=== PATIENT | female | born 1945 | race Two or more races ===

== ENCOUNTER 2018-03-07 18:15 | Inpatient (IN) | payer BC, MEDICARE ==
[~2018-03-07] VITALS: Ht 162.6 cm; Wt 59.5 kg
[2018-03-07] MEDS ORDERED: IV NORMAL SALINE 500ML BAG 500 ML IV SCH (18:30)
[2018-03-07] MEDS ORDERED: PANTOPRAZOLE IV PUSH 40 MG VIAL. IVP ONE (18:30)
--- NOTE | 2018-03-07 18:40 | PHYS DOC ---
Past Medical History Past Medical History: Cancer (liver) Additional Past Surgical Histo: liver cancer resection Alcohol Use: None Drug Use: None Adult General Chief Complaint Chief Complaint: NEAR SYNCOPE HPI HPI Patient is a 72 year old female who presents with near syncope due to GI bleed. Patient was sitting at her children's home when she became nauseated and felt like she was going to pass out. While in the car and the way to the hospital developed bleeding both in emesis as well as per rectum. She has had a similar episode of this due to a Dieulafoy's lesion that was treated at her home in [place] sometime ago. Patient also has a history of liver cancer that has been resected. Last had an MRI in January 2018 that showed that she was cancer free.[] Review of Systems Review of Systems Constitutional: Denies fever or chills [] Eyes: Denies change in visual acuity, redness, or eye pain [] HENT: Denies nasal congestion or sore throat [] Respiratory: Denies cough or shortness of breath [] Cardiovascular: No chest pain or palpitations[] GI: See history of present illness[] : Denies dysuria or hematuria [] Musculoskeletal: Denies back pain or joint pain [] Integument: Denies rash or skin lesions [] Neurologic: Denies headache, focal weakness or sensory changes [] Endocrine: Denies polyuria or polydipsia [] All other systems were reviewed and found to be within normal limits, except as documented in this note. Current Medications Current Medications Current Medications Medications (Trade) Dose Ordered Sig/Aliza Start Time Stop Time Status Last Admin Dose Admin Pantoprazole Sodium (PROTONIX VIAL for IV PUSH) 80 mg 1X ONCE 03/07/18 18:30 03/07/18 18:32 DC 03/07/18 19:00 80 MG Sodium Chloride 500 ml @ 500 mls/hr Q1H 03/07/18 18:30 03/07/18 18:42 DC 03/07/18 18:29 500 MLS/HR Allergies Allergies Allergies Coded Allergies Type Severity Reaction Last Updated Verified No Known Drug Allergies 03/07/18 No Physical Exam Physical Exam Constitutional: Well developed, well nourished, no acute distress, ill appearing. [] HENT: Normocephalic, atraumatic, bilateral external ears normal, oropharynx moist, no oral exudates, nose normal. Blood in oropharynx and on lips.[] Eyes: PERRLA, EOMI, conjunctiva normal, no discharge. [] Neck: Normal range of motion, no tenderness, supple, no stridor. [] Cardiovascular:Heart rate regular rhythm, no murmur [] Lungs & Thorax: Bilateral breath sounds clear to auscultation [] Abdomen: Bowel sounds normal, soft, no tenderness, no masses, no pulsatile masses. Bright red blood per rectum[] Skin: Warm, dry, no erythema, no rash. [] Back: No tenderness, no CVA tenderness. [] Extremities: No tenderness, no cyanosis, no clubbing, ROM intact, no edema. [] Neurologic: Alert and oriented X 3, normal motor function, normal sensory function, no focal deficits noted. [] Psychologic: Affect normal, judgement normal, mood normal. [] Current Patient Data Vital Signs Vital Signs Date Time Temp Pulse Resp B/P (MAP) Pulse Ox O2 Delivery O2 Flow Rate FiO2 03/07/18 18:31 97.6 76 24 69/53 (58) 100 Room Air 97.6 Lab Values Laboratory Tests Test 03/07/18 18:40 Prothrombin Time 14.3 SEC (11.7-14.0) H Prothrombin Time INR 1.1 (0.8-1.1) Sodium Level 143 mmol/L (136-145) Potassium Level 3.4 mmol/L (3.5-5.1) L Chloride Level 109 mmol/L (98-107) H Carbon Dioxide Level 22 mmol/L (21-32) Anion Gap 12 (6-14) Blood Urea Nitrogen 9 mg/dL (7-20) Creatinine 0.8 mg/dL (0.6-1.0) Estimated GFR (Cockcroft-Gault) 70.9 BUN/Creatinine Ratio 11 (6-20) Glucose Level 155 mg/dL (70-99) H Calcium Level 8.4 mg/dL (8.5-10.1) L Total Bilirubin Pending Aspartate Amino Transferase (AST) Pending Alanine Aminotransferase (ALT) Pending Alkaline Phosphatase Pending Total Protein Pending Albumin Pending Albumin/Globulin Ratio Pending Laboratory Tests 03/07/18 18:40 EKG EKG EKG shows a sinus rhythm, 73 bpm, leftward axis, QTC 42 ms, nonspecific ST-T wave changes, no ST elevation, no old EKG is available for comparison.[] Radiology/Procedures Radiology/Procedures [] Course & Med Decision Making Course & Med Decision Making Pertinent Labs and Imaging studies reviewed. (See chart for details) ED course: Patient arrived, was placed in bed, 2 large bore IV sites were established, and patient was placed on media monitor. Given her history of the Dieulafoy's lesion, consultation was made with GI as well as the hospitalist service for admission. Patient was given IV fluids, proton pump inhibitor and octreotide. Patient was typed and crossed for 4 units of packed red cells. Due to persistent hypotension despite IV fluids, emergency release blood was ordered and transfused on the rapid infuser. Critical care time 45 minutes for direct bedside care, consultation with specialists, interpretation of labs and imaging, and discussion with family.[] Dragon Disclaimer Dragon Disclaimer This electronic medical record was generated, in whole or in part, using a voice recognition dictation system. Departure Departure Impression: Primary Impression: GI bleed Additional Impression: Hypotension Disposition: 09 ADMITTED INPATIENT Condition: CRITICAL Problem Qualifiers Primary Impression: GI bleed GI bleed type/associated pathology: unspecified gastrointestinal hemorrhage type Qualified Codes: K92.2 - Gastrointestinal hemorrhage, unspecified Additional Impression: Hypotension Hypotension type: hypotension due to hypovolemia Qualified Codes: I95.89 - Other hypotension; E86.1 - Hypovolemia SANIA RICHARD DO Mar 07, 2018 18:39
[2018-03-07 19:01] LABS: PROTHROMBIN TIME PATIENT 14.3 SEC (11.7-14.0)
[2018-03-07 19:03] LABS: CALCIUM 8.4 mg/dL (8.5-10.1); CREATININE 0.8 mg/dL (0.6-1.0); GFR 70.9; POTASSIUM 3.4 mmol/L (3.5-5.1)
[2018-03-07 19:08] LABS: ALBUMIN/GLOBULIN RATIO 0.3 (1.0-1.7); TOTAL BILIRUBIN 0.4 mg/dL (0.2-1.0); TOTAL PROTEIN 9.3 g/dL (6.4-8.2)
[2018-03-07] MEDS ORDERED: CONTRAST GIVEN. MC PRN (19:15)
[2018-03-07] MEDS ORDERED: ONDANSETRON PF 4 MG/2 ML VIAL. IV PRN (19:15)
[2018-03-07] MEDS ORDERED: IOHEXOL 300 MG/ML 100ML VIAL. IV ONE (19:15)
[2018-03-07 19:33] LABS: BASO % 0 % (0-3); EOS # 0.1 x10^3/uL (0.0-0.7); EOS % 2 % (0-3); LYMPH # 2.6 x10^3/uL (1.0-4.8); LYMPH % 32 % (24-48); MEAN CORPUSCULAR HEMOGLOBIN 31 pg (25-35); MEAN CORPUSCULAR HGB CONC 35 g/dL (31-37); MEAN CORPUSCULAR VOLUME 90 fL (79-100); MONO # 0.7 x10^3/uL (0.0-1.1); MONO % 8 % (0-9); NEUT # 4.7 x10^3uL (1.8-7.7); NEUT % 58 % (31-73); PLATELET COUNT 151 x10^3/uL (140-400); RED BLOOD COUNT 2.16 x10^6/uL (3.50-5.40); RED CELL DISTRIBUTION WIDTH 16.8 % (11.5-14.5); WHITE BLOOD COUNT 8.2 x10^3/uL (4.0-11.0)
[2018-03-07 19:52] LABS: HEMATOCRIT 19.4 % (36.0-47.0); HEMOGLOBIN 6.7 g/dL (12.0-15.5)
[2018-03-07 21:00] VITALS: BP 85/38
[2018-03-07] MEDS ORDERED: OMEP20TA63 PO (21:11)
[2018-03-07] MEDS ORDERED: SIMV20TA3 PO (21:11)
--- NOTE | 2018-03-07 21:13 | PDOC2 ---
GI CONSULT Reason For Consult: GI bleeding HPI: HPI: 72 y/o female visiting from out of town. This evening had sudden onset near- syncope followed by urge to stool. Passed normal stool. Subsequently abdominal discomfort and decision to come to ER. En route, hematemesis, then hematochezia. Initial BP 70-jorge systolic. Never particularly tachycardic. H/ o UGI bleed in June 2016; at EGD, family relates "Dieulafoy" lesion in esophagus (?) treated by spray (?). 's related to NSAID use incidentally noted, but not bleeding. Avoids NSAIDs now. Apparently no mention of varices, etc. No HB, etc. but maintained on PPI. S/p incidental cortez during segmental hepatic resection for HCC; initially felt solitary lesion. Family/patient deny any history of liver disease. Had recurrent HCC and treated with [facility] (sp? ) initially, then Opdiv[facility]. Family reports last imaging clean. No pancreatic history. No tobacco or alcohol use. Stools tend to loose; no constipation. More than one colonoscopy reportedly normal. Wt/appetite OK. No GIFH. PMH: PMH: Past HTN, HLD. S/p above surgeries plus myomectomy for uterine fibroids. FH: Family History: Cancer (breast/sister) Social History: Smoke: No ALCOHOL: none Drugs: None ROS: GEN: Denies fevers, chills, sweats HEENT: Denies blurred vision, sore throat CV: Denies chest pain RESP: Denies shortness of air, cough GI: Per HPI : Denies hematuria, dysuria ENDO: Denies weight changes NEURO: Denies confusion, dizziness MSK: Denies weakness, swelling. Frequent joint pain. SKIN: Denies jaundice, pruritus Vitals: Vitals: Vital Signs Date Time Temp Pulse Resp B/P (MAP) Pulse Ox O2 Delivery O2 Flow Rate FiO2 03/07/18 20:16 66 14 100 03/07/18 20:14 98.1 98.1 03/07/18 18:31 69/53 (58) Room Air Labs: Labs: Laboratory Tests Test 03/07/18 18:40 03/07/18 19:11 Prothrombin Time 14.3 SEC (11.7-14.0) Prothromb Time International Ratio 1.1 (0.8-1.1) Sodium Level 143 mmol/L (136-145) Potassium Level 3.4 mmol/L (3.5-5.1) Chloride Level 109 mmol/L (98-107) Carbon Dioxide Level 22 mmol/L (21-32) Anion Gap 12 (6-14) Blood Urea Nitrogen 9 mg/dL (7-20) Creatinine 0.8 mg/dL (0.6-1.0) Estimated GFR (Cockcroft-Gault) 70.9 BUN/Creatinine Ratio 11 (6-20) Glucose Level 155 mg/dL (70-99) Calcium Level 8.4 mg/dL (8.5-10.1) Total Bilirubin 0.4 mg/dL (0.2-1.0) Aspartate Amino Transf (AST/SGOT) 73 U/L (15-37) Alanine Aminotransferase (ALT/SGPT) 47 U/L (14-59) Alkaline Phosphatase 280 U/L (46-116) Troponin I Quantitative < 0.017 ng/mL (0.000-0.055) Total Protein 9.3 g/dL (6.4-8.2) Albumin 2.0 g/dL (3.4-5.0) Albumin/Globulin Ratio 0.3 (1.0-1.7) White Blood Count 8.2 x10^3/uL (4.0-11.0) Red Blood Count 2.16 x10^6/uL (3.50-5.40) Hemoglobin 6.7 g/dL (12.0-15.5) Hematocrit 19.4 % (36.0-47.0) Mean Corpuscular Volume 90 fL (79-100) Mean Corpuscular Hemoglobin 31 pg (25-35) Mean Corpuscular Hemoglobin Concent 35 g/dL (31-37) Red Cell Distribution Width 16.8 % (11.5-14.5) Platelet Count 151 x10^3/uL (140-400) Neutrophils (%) (Auto) 58 % (31-73) Lymphocytes (%) (Auto) 32 % (24-48) Monocytes (%) (Auto) 8 % (0-9) Eosinophils (%) (Auto) 2 % (0-3) Basophils (%) (Auto) 0 % (0-3) Neutrophils # (Auto) 4.7 x10^3uL (1.8-7.7) Lymphocytes # (Auto) 2.6 x10^3/uL (1.0-4.8) Monocytes # (Auto) 0.7 x10^3/uL (0.0-1.1) Eosinophils # (Auto) 0.1 x10^3/uL (0.0-0.7) Basophils # (Auto) 0.0 x10^3/uL (0.0-0.2) Minimally abnormal LFT's. Has received 2 units PRBC's since first labs drawn. Allergies: Coded Allergies: No Known Drug Allergies (Unverified , 03/07/18) Medications: Current Medications Medications (Trade) Dose Ordered Sig/Aliza Route PRN Reason Start Time Stop Time Status Last Admin Dose Admin Sodium Chloride 500 ml @ 500 mls/hr Q1H IV 03/07/18 18:30 03/07/18 18:42 DC 03/07/18 18:29 Pantoprazole Sodium (PROTONIX VIAL for IV PUSH) 80 mg 1X ONCE IVP 03/07/18 18:30 03/07/18 18:32 DC 03/07/18 19:00 Imaging: Imaging: KUB with surgeon tracks in the RUQ. CT pending. PE: GEN: NAD HEENT: Atraumatic, PERRLA LUNGS: CTAB HEART: RRR, no murmurs ABD: NABS, S/ND/NT, no masses EXTREMITY: No edema SKIN: No rashes, no jaundice NEURO/PSYCH: A & O 3 A/P: A/P: IMP: Hematemesis, with probably rapid transit-->bloody stool. Might have ischemic colitis to account for the blood in stool alternatively as historically hypotensive episode. H/o esophageal Dieulafoy's unusual. Given h/ o HCC concern for cirrhosis, etc. H/o HCC, apparently successfully treated for the time being. REC: Continue PPI, octreotide. EGD tonight as seem to have window of opportunity now and unclear how long this will last. Other pending. Thank you for allowing me to assist in the care of this patient. Please call if questions. CALI MISHRA MD Mar 07, 2018 21:12
[2018-03-07 21:15] VITALS: BP 90/58
[2018-03-07 21:30] VITALS: BP 95/50
--- NOTE | 2018-03-07 21:42 | RAD ---
Portable abdomen, 03/07/2018: HISTORY: GI tract bleed The abdominal gas pattern is unremarkable. There is no evidence organomegaly. Old embolization coils are projected over the upper abdomen. There are surgical clips and sutures in the right upper quadrant. Lower pelvic calcifications are compatible phleboliths. IMPRESSION: No acute abdominal abnormality is detected. Electronically signed by: Carlos Singer MD (03/07/2018 9:38 PM) [facility]
[2018-03-07 21:45] VITALS: BP 78/42
[2018-03-07 22:00] VITALS: BP 90/39
--- NOTE | 2018-03-07 22:23 | PDOC4 ---
PROCEDURE Procedure EGD Indication: hematemesis/acute anemia Meds: per anesthesia Findings: E--Normal, no varices or MW. G--Large amount of clot/some BRB in proximal stomach, mostly posterior wall. Unable to view this area well. No apparent gastric varices; able to see cardia. Distal stomach with blood coating, but no ulcer, etc. D--Blood in lumen; no ulcer, active bleeding. Wade. well. IMP: Suspect non-variceal/non-ulcer bleeding. Vascular lesion suspect ( Dieulafoy's more likely given nature of bleed). Unable to visualize. REC: Continue PPI drip. IR consult. If continued bleeding, try embolize left gastric. Keep NPO save ice chips. Follow hemoglobin; transfuse to 7+. Continue IVF's, watch INR with transfusions. FFP if needed. CALI MISHRA MD Mar 07, 2018 22:23
[2018-03-07] MEDS ORDERED: PROPOFOL 20 ML IV ONE (22:37)
--- NOTE | 2018-03-07 22:48 | RAD ---
CT of the abdomen and pelvis with contrast, 03/07/2018: HISTORY: GI bleeding Multidetector CT imaging was performed following an IV bolus injection of iodinated contrast material. No previous studies are available at this time for comparison purposes. Artifacts arising from the patient's arms degrade image quality in the upper abdomen with poor delineation of the liver. There is a 3 cm cyst in the posterior aspect of the liver. No obvious hepatic mass is evident on this limited study. There are surgical sutures and clips along the margin of the liver. Old embolization coils are present in the right upper quadrant. Artifacts arising from these coils also degrade image quality in the region of the pancreas. No pancreatic mass is evident. The spleen is of normal size. No renal abnormality is detected. Aortic calcific plaquing is present without evidence of aneurysm. No abdominal or pelvic adenopathy is seen. The uterus is retroverted. There are prominent periuterine veins. The bowel loops are not dilated. The stomach is distended with fluid and retained food. Dilated serpiginous opacified vessels are present along the medial wall of the stomach at the GE junction level, suggesting varices. No free air or free fluid is evident in the abdomen or pelvis. IMPRESSION: 1. Gastric distention with a large serpiginous vessels along its medial wall near the GE junction most compatible with varices 2. Hepatic cyst. 3. Evidence of previous hepatic surgery with poor definition of the liver due to artifacts. 4. Old embolization coils in the upper abdomen. 5. Enlarged periuterine vessels. PQRS Compliance Statement: One or more of the following individualized dose reduction techniques were utilized for this examination: 1. Automated exposure control 2. Adjustment of the mA and/or kV according to patient size 3. Use of iterative reconstruction technique Electronically signed by: Carlos Singer MD (03/07/2018 10:44 PM) [facility]
[2018-03-07 22:50] LABS: HEMATOCRIT 26.6 % (36.0-47.0); HEMOGLOBIN 9.3 g/dL (12.0-15.5); RED BLOOD COUNT 3.02 x10^6/uL (3.50-5.40); RED CELL DISTRIBUTION WIDTH 15.6 % (11.5-14.5); WHITE BLOOD COUNT 6.6 x10^3/uL (4.0-11.0)
[2018-03-07 23:00] VITALS: BP 86/51
[2018-03-07] MEDS: PANTOPRAZOLE SODIUM IV DRIP 80 MG in IV NORMAL SALINE 100ML 100 ML IV SCH (23:14)
--- NOTE | 2018-03-07 23:28 | NUR ---
Admission Note: Pt admitted from ED to room 114 via ED cart. Vomiting blood upon arrival. Pt alert and oriented. Accompanied by her and daughter. Patient is visiting from out of town. Dr. Grayson here to see patient and going to do EGD. Consents signed. Octreotide gtt and MIV.
[2018-03-08] VITALS (19 sets, daily range): BP systolic 78–156; BP diastolic 46–74
[2018-03-08] MEDS: IV RINGERS,LACTATED 1000ML 1,000 ML IV SCH ×3 (00:19→20:41)
--- NOTE | 2018-03-08 00:30 | NUR ---
Nursing Note: Pt tolerated EGD well. Dr. Grayson spoke with IR, Dr. De La Rosa regarding findings. Spoke and updated and daughter. No active signs of bleeding noted since admitted to ICU.
--- NOTE | 2018-03-08 03:41 | EKG ---
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
[2018-03-08 05:14] LABS: ALBUMIN 1.3 g/dL (3.4-5.0); ALBUMIN/GLOBULIN RATIO 0.3 (1.0-1.7); CALCIUM 6.8 mg/dL (8.5-10.1); CREATININE 0.6 mg/dL (0.6-1.0); GFR 98.8; POTASSIUM 4.1 mmol/L (3.5-5.1); TOTAL BILIRUBIN 0.6 mg/dL (0.2-1.0); TOTAL PROTEIN 6.1 g/dL (6.4-8.2)
[2018-03-08 05:34] LABS: BASO % 0 % (0-3); EOS % 0 % (0-3); HEMATOCRIT 21.6 % (36.0-47.0); HEMOGLOBIN 7.8 g/dL (12.0-15.5); LYMPH # 1.9 x10^3/uL (1.0-4.8); LYMPH % 31 % (24-48); MEAN CORPUSCULAR HEMOGLOBIN 32 pg (25-35); MEAN CORPUSCULAR HGB CONC 36 g/dL (31-37); MEAN CORPUSCULAR VOLUME 87 fL (79-100); MONO # 0.6 x10^3/uL (0.0-1.1); MONO % 9 % (0-9); NEUT # 3.7 x10^3uL (1.8-7.7); NEUT % 59 % (31-73); PLATELET COUNT 111 x10^3/uL (140-400); RED BLOOD COUNT 2.48 x10^6/uL (3.50-5.40); RED CELL DISTRIBUTION WIDTH 15.6 % (11.5-14.5); WHITE BLOOD COUNT 6.2 x10^3/uL (4.0-11.0)
[2018-03-08 05:44] LABS: PROTHROMBIN TIME PATIENT 17.4 SEC (11.7-14.0)
[2018-03-08] MEDS: PANTOPRAZOLE SODIUM IV DRIP 80 MG in IV NORMAL SALINE 100ML 100 ML IV SCH ×2 (07:20→22:40)
--- NOTE | 2018-03-08 09:12 | PDOC1 ---
History and Physical Date of Admission Date of Admission DATE: 03/08/18 TIME: 09:11 Identification/Chief Complaint Chief Complaint Hematemesis History of Present Illness History of Present Illness Ms Ortiz is a 72 yo f w/ PMHx cirrhosis with HCC s/p segmental resection who is visiting [place] and [place] from [place], [place] with her and p/w near syncope and urge to defecate followed by abdominal pain Enroute she experience hematemesis, then hematochezia. In ED noted with SBP 70s, baseline has SBP of 90mmHg. HR 68bpm at the time. Hb was < 7, given 2u PRBC in ED. H/o UGI bleed in June 2016; at EGD, family relates "Dieulafoy" lesion per GI history. Denies history of varices, bleeding hemorrhoids. She is s/p incidental cholecystectomy during segmental hepatic resection for HCC ; initially felt solitary lesion, has been treated with navistar and opdivo in [place] No tobacco or alcohol use, no NSAIDS. Last colonoscopy reportedly normal. No abnormal recent weight loss, no history of clotting disorder. Seen by GI, s/ p endoscopy last night with significant clotting and no visible lesion. However on CT there is apparently a large gastric varix noted by radiology, have d/w GI this likely needs treatment as the culprit. Admitted to ICU. Past Medical History Cardiovascular: No pertinent hx Pulmonary: No pertinent hx GI: GERD, GI bleed, Other (HCC) Heme/Onc: No pertinent hx Hepatobiliary: Cirrhosis Psych: No pertinent hx Rheumatologic: No pertinent hx Infectious disease: No pertinent hx ENT: No pertinent hx Renal/: No pertinent hx Endocrine: No pertinent hx Dermatology: No pertinent hx Past Surgical History Past Surgical History: Cholecystectomy, Other (Liver resection) Family History Family History: Diabetes Social History Smoke: No ALCOHOL: none Drugs: None Current Problem List Problem List Problems Medical Problems: (1) Hypotension Status: Acute Current Medications Current Medications Current Medications Sodium Chloride 500 ml @ 500 mls/hr Q1H IV Last administered on 03/07/18at 18: 29; Start 03/07/18 at 18:30; Stop 03/07/18 at 18:42; Status DC Pantoprazole Sodium (PROTONIX VIAL for IV PUSH) 80 mg 1X ONCE IVP Last administered on 03/07/18at 19:00; Start 03/07/18 at 18:30; Stop 03/07/18 at 18 :32; Status DC Octreotide Acetate 500 mcg/ Sodium Chloride 101 ml @ 5.05 mls/hr CONT PRN IV SEE I/O RECORD; Start 03/07/18 at 19:30 Ondansetron HCl (Zofran) 4 mg PRN Q8HRS PRN IV NAUSEA/VOMITING; Start at 19:15; Stop 03/08/18 at 19:14 Iohexol (Omnipaque 300 Mg/ml) 75 ml 1X ONCE IV Last administered on at 20:32; Start 03/07/18 at 19:15; Stop 03/07/18 at 19:16; Status DC Info (CONTRAST GIVEN -- Rx MONITORING) 1 each PRN DAILY PRN MC SEE COMMENTS; Start 03/07/18 at 19:15; Stop 03/09/18 at 19:14 Propofol 20 ml @ As Directed STK-MED ONCE IV ; Start 03/07/18 at 22:37; Stop 03/07/18 at 22:38; Status DC Pantoprazole Sodium 80 mg/ Sodium Chloride 100 ml @ 10 mls/hr Q10H IV Last administered on 03/08/18at 07:20; Start 03/07/18 at 23:00 Ringer's Solution 1,000 ml @ 200 mls/hr Q5H IV Last administered on at 00:19; Start 03/07/18 at 23:15 Dopamine HCl/ Dextrose 250 ml @ 4.461 mls/ hr CONT PRN IV SEE I/O RECORD; Start 03/08/18 at 09:15; Status UNV Active Scripts Active Reported Prilosec Otc (Omeprazole Magnesium) 20 Mg Tablet. 1 Tab PO DAILY Simvastatin 20 Mg Tablet 1 Tab PO QHS Allergies Allergies: Coded Allergies: No Known Drug Allergies (Unverified , 03/07/18) ROS General: YES: Fatigue, Malaise; No: Chills, Night Sweats, Appetite, Other PSYCHOLOGICAL ROS: No: Anxiety, Behavioral Disorder, Concentration difficultie , Decreased libido, Depression, Disorientation, Hallucinations, Hostility, Irritablity, Memory difficulties, Mood Swings, Obsessive thoughts, Physical abuse, Sexual abuse, Sleep disturbances, Suicidal ideation, Other Eyes: No Blurry vision, No Decreased vision, No Double vision, No Dry eyes, No Excessive tearing, No Eye Pain, No Itchy Eyes, No Loss of vision, No Photophobia , No Scotomata, No Uses contacts, No Uses glasses, No Other HEENT: No: Heacaches, Visual Changes, Hearing change, Nasal congestion, Nasal discharge, Oral lesions, Sinus pain, Sore Throat, Epistaxis, Sneezing, Snoring, Tinnitus, Vertigo, Vocal changes, Other ALLERGY AND IMMUNOLOGY: No: Hives, Insect Bite Sensitivity, Itchy/Watery Eyes, Nasal Congestion, Post Nasal Drip, Seasonal Allergies, Other Hematological and Lymphatic: YES: Bleeding Problems, Blood Clots; No: Blood Transfusions, Brusing, Night Sweats, Pallor, Swollen Lymph Nodes, Other ENDOCRINE: No: Breast Changes, Galactorrhea, Hair Pattern Changes, Hot Flashes , Malaise/lethargy, Mood Swings, Palpitations, Polydipsia/polyuria, Skin Changes , Temperature Intolerance, Unexpected Weight Changes, Other Breast: No New/Changing Breast Lumps, No Nipple changes, No Nipple discharge, No Other Respiratory: No: Cough, Hemoptysis, Orthopnea, Pleuritic Pain, Shortness of breath, SOB with excertion, Sputum Changes, Stridor, Tachypnea, Wheezing, Other Cardiovascular: No Chest Pain, No Palpitations, No Orthopnea, No Paroxysmal Noc. Dyspnea, No Edema, No Lt Headedness, No Other Gastrointestinal: No Nausea, No Vomiting, No Abdominal Pain, No Diarrhea, No Constipation, No Melena, No Hematochezia, No Other Genitourinary: No Dysuria, No Frequency, No Incontinence, No Hematuria, No Retention, No Discharge, No Urgency, No Pain, No Flank Pain, No Other, No , No , No , No , No , No , No Musculoskeletal: No Gait Disturbance, No Joint Pain, No Joint Stiffness, No Joint Swelling, No Muscle Pain, No Muscular Weakness, No Pain In:, No Swelling In:, No Other Neurological: No Behavorial Changes, No Bowel/Bladder ControlChng, No Confusion , No Dizziness, No Gait Disturbance, No Headaches, No Impaired Coord/balance, No Memory Loss, No Numbness/Tingling, No Seizures, No Speech Problems, No Tremors, No Visual Changes, No Weakness, No Other Skin: No Dry Skin, No Eczema, No Hair Changes, No Lumps, No Mole Changes, No Mottling, No Nail Changes, No Pruritus, No Rash, No Skin Lesion Changes, No Other, No Acne Physical Exam General: Alert, Oriented X3, Cooperative, No acute distress HEENT: Atraumatic, PERRLA, EOMI, Mucous membr. moist/pink Lungs: Clear to auscultation, Normal air movement Heart: S1S2, RRR, no gallops, no murmurs Abdomen: Normal bowel sounds, Soft, No tenderness, No masses, Other Extremities: No clubbing, No cyanosis, No edema, Normal pulses, No tenderness/ swelling Skin: No rashes, No breakdown, No significant lesion Neuro: Normal gait, Normal speech, Strength at 5/5 X4 ext, Normal tone, Sensation intact, Cranial nerves 3-12 NL, Reflexes 2+ Psych/Mental Status: Mental status NL, Mood NL Vitals Vitals Vital Signs Date Time Temp Pulse Resp B/P (MAP) Pulse Ox O2 Delivery O2 Flow Rate FiO2 03/08/18 06:00 66 10 92/49 (63) 99 Room Air 03/08/18 01:00 98.4 98.4 Labs Labs Laboratory Tests Test 03/07/18 18:40 03/07/18 19:11 03/07/18 22:30 03/07/18 22:40 Prothrombin Time 14.3 SEC (11.7-14.0) Prothromb Time International Ratio 1.1 (0.8-1.1) Sodium Level 143 mmol/L (136-145) Potassium Level 3.4 mmol/L (3.5-5.1) Chloride Level 109 mmol/L (98-107) Carbon Dioxide Level 22 mmol/L (21-32) Anion Gap 12 (6-14) Blood Urea Nitrogen 9 mg/dL (7-20) Creatinine 0.8 mg/dL (0.6-1.0) Estimated GFR (Cockcroft-Gault) 70.9 BUN/Creatinine Ratio 11 (6-20) Glucose Level 155 mg/dL (70-99) Calcium Level 8.4 mg/dL (8.5-10.1) Total Bilirubin 0.4 mg/dL (0.2-1.0) Aspartate Amino Transf (AST/SGOT) 73 U/L (15-37) Alanine Aminotransferase (ALT/SGPT) 47 U/L (14-59) Alkaline Phosphatase 280 U/L (46-116) Troponin I Quantitative < 0.017 ng/mL (0.000-0.055) 0.022 ng/mL (0.000-0.055) Total Protein 9.3 g/dL (6.4-8.2) Albumin 2.0 g/dL (3.4-5.0) Albumin/Globulin Ratio 0.3 (1.0-1.7) White Blood Count 8.2 x10^3/uL (4.0-11.0) 6.6 x10^3/uL (4.0-11.0) Red Blood Count 2.16 x10^6/uL (3.50-5.40) 3.02 x10^6/uL (3.50-5.40) Hemoglobin 6.7 g/dL (12.0-15.5) 9.3 g/dL (12.0-15.5) Hematocrit 19.4 % (36.0-47.0) 26.6 % (36.0-47.0) Mean Corpuscular Volume 90 fL (79-100) 88 fL (79-100) Mean Corpuscular Hemoglobin 31 pg (25-35) 31 pg (25-35) Mean Corpuscular Hemoglobin Concent 35 g/dL (31-37) 35 g/dL (31-37) Red Cell Distribution Width 16.8 % (11.5-14.5) 15.6 % (11.5-14.5) Platelet Count 151 x10^3/uL (140-400) 121 x10^3/uL (140-400) Neutrophils (%) (Auto) 58 % (31-73) Lymphocytes (%) (Auto) 32 % (24-48) Monocytes (%) (Auto) 8 % (0-9) Eosinophils (%) (Auto) 2 % (0-3) Basophils (%) (Auto) 0 % (0-3) Neutrophils # (Auto) 4.7 x10^3uL (1.8-7.7) Lymphocytes # (Auto) 2.6 x10^3/uL (1.0-4.8) Monocytes # (Auto) 0.7 x10^3/uL (0.0-1.1) Eosinophils # (Auto) 0.1 x10^3/uL (0.0-0.7) Basophils # (Auto) 0.0 x10^3/uL (0.0-0.2) Test 03/08/18 04:10 03/08/18 05:00 Sodium Level 145 mmol/L (136-145) Potassium Level 4.1 mmol/L (3.5-5.1) Chloride Level 116 mmol/L (98-107) Carbon Dioxide Level 20 mmol/L (21-32) Anion Gap 9 (6-14) Blood Urea Nitrogen 11 mg/dL (7-20) Creatinine 0.6 mg/dL (0.6-1.0) Estimated GFR (Cockcroft-Gault) 98.8 BUN/Creatinine Ratio 18 (6-20) Glucose Level 116 mg/dL (70-99) Calcium Level 6.8 mg/dL (8.5-10.1) Total Bilirubin 0.6 mg/dL (0.2-1.0) Aspartate Amino Transf (AST/SGOT) 50 U/L (15-37) Alanine Aminotransferase (ALT/SGPT) 32 U/L (14-59) Alkaline Phosphatase 166 U/L (46-116) Total Protein 6.1 g/dL (6.4-8.2) Albumin 1.3 g/dL (3.4-5.0) Albumin/Globulin Ratio 0.3 (1.0-1.7) White Blood Count 6.2 x10^3/uL (4.0-11.0) Red Blood Count 2.48 x10^6/uL (3.50-5.40) Hemoglobin 7.8 g/dL (12.0-15.5) Hematocrit 21.6 % (36.0-47.0) Mean Corpuscular Volume 87 fL (79-100) Mean Corpuscular Hemoglobin 32 pg (25-35) Mean Corpuscular Hemoglobin Concent 36 g/dL (31-37) Red Cell Distribution Width 15.6 % (11.5-14.5) Platelet Count 111 x10^3/uL (140-400) Neutrophils (%) (Auto) 59 % (31-73) Lymphocytes (%) (Auto) 31 % (24-48) Monocytes (%) (Auto) 9 % (0-9) Eosinophils (%) (Auto) 0 % (0-3) Basophils (%) (Auto) 0 % (0-3) Neutrophils # (Auto) 3.7 x10^3uL (1.8-7.7) Lymphocytes # (Auto) 1.9 x10^3/uL (1.0-4.8) Monocytes # (Auto) 0.6 x10^3/uL (0.0-1.1) Eosinophils # (Auto) 0.0 x10^3/uL (0.0-0.7) Basophils # (Auto) 0.0 x10^3/uL (0.0-0.2) Prothrombin Time 17.4 SEC (11.7-14.0) Prothromb Time International Ratio 1.5 (0.8-1.1) Laboratory Tests Test 03/07/18 18:40 03/07/18 19:11 03/07/18 22:30 03/07/18 22:40 Prothrombin Time 14.3 SEC (11.7-14.0) Prothromb Time International Ratio 1.1 (0.8-1.1) Sodium Level 143 mmol/L (136-145) Potassium Level 3.4 mmol/L (3.5-5.1) Chloride Level 109 mmol/L (98-107) Carbon Dioxide Level 22 mmol/L (21-32) Anion Gap 12 (6-14) Blood Urea Nitrogen 9 mg/dL (7-20) Creatinine 0.8 mg/dL (0.6-1.0) Estimated GFR (Cockcroft-Gault) 70.9 BUN/Creatinine Ratio 11 (6-20) Glucose Level 155 mg/dL (70-99) Calcium Level 8.4 mg/dL (8.5-10.1) Total Bilirubin 0.4 mg/dL (0.2-1.0) Aspartate Amino Transf (AST/SGOT) 73 U/L (15-37) Alanine Aminotransferase (ALT/SGPT) 47 U/L (14-59) Alkaline Phosphatase 280 U/L (46-116) Troponin I Quantitative < 0.017 ng/mL (0.000-0.055) 0.022 ng/mL (0.000-0.055) Total Protein 9.3 g/dL (6.4-8.2) Albumin 2.0 g/dL (3.4-5.0) Albumin/Globulin Ratio 0.3 (1.0-1.7) White Blood Count 8.2 x10^3/uL (4.0-11.0) 6.6 x10^3/uL (4.0-11.0) Red Blood Count 2.16 x10^6/uL (3.50-5.40) 3.02 x10^6/uL (3.50-5.40) Hemoglobin 6.7 g/dL (12.0-15.5) 9.3 g/dL (12.0-15.5) Hematocrit 19.4 % (36.0-47.0) 26.6 % (36.0-47.0) Mean Corpuscular Volume 90 fL (79-100) 88 fL (79-100) Mean Corpuscular Hemoglobin 31 pg (25-35) 31 pg (25-35) Mean Corpuscular Hemoglobin Concent 35 g/dL (31-37) 35 g/dL (31-37) Red Cell Distribution Width 16.8 % (11.5-14.5) 15.6 % (11.5-14.5) Platelet Count 151 x10^3/uL (140-400) 121 x10^3/uL (140-400) Neutrophils (%) (Auto) 58 % (31-73) Lymphocytes (%) (Auto) 32 % (24-48) Monocytes (%) (Auto) 8 % (0-9) Eosinophils (%) (Auto) 2 % (0-3) Basophils (%) (Auto) 0 % (0-3) Neutrophils # (Auto) 4.7 x10^3uL (1.8-7.7) Lymphocytes # (Auto) 2.6 x10^3/uL (1.0-4.8) Monocytes # (Auto) 0.7 x10^3/uL (0.0-1.1) Eosinophils # (Auto) 0.1 x10^3/uL (0.0-0.7) Basophils # (Auto) 0.0 x10^3/uL (0.0-0.2) Test 03/08/18 04:10 12/30/18 05:00 Sodium Level 145 mmol/L (136-145) Potassium Level 4.1 mmol/L (3.5-5.1) Chloride Level 116 mmol/L (98-107) Carbon Dioxide Level 20 mmol/L (21-32) Anion Gap 9 (6-14) Blood Urea Nitrogen 11 mg/dL (7-20) Creatinine 0.6 mg/dL (0.6-1.0) Estimated GFR (Cockcroft-Gault) 98.8 BUN/Creatinine Ratio 18 (6-20) Glucose Level 116 mg/dL (70-99) Calcium Level 6.8 mg/dL (8.5-10.1) Total Bilirubin 0.6 mg/dL (0.2-1.0) Aspartate Amino Transf (AST/SGOT) 50 U/L (15-37) Alanine Aminotransferase (ALT/SGPT) 32 U/L (14-59) Alkaline Phosphatase 166 U/L (46-116) Total Protein 6.1 g/dL (6.4-8.2) Albumin 1.3 g/dL (3.4-5.0) Albumin/Globulin Ratio 0.3 (1.0-1.7) White Blood Count 6.2 x10^3/uL (4.0-11.0) Red Blood Count 2.48 x10^6/uL (3.50-5.40) Hemoglobin 7.8 g/dL (12.0-15.5) Hematocrit 21.6 % (36.0-47.0) Mean Corpuscular Volume 87 fL (79-100) Mean Corpuscular Hemoglobin 32 pg (25-35) Mean Corpuscular Hemoglobin Concent 36 g/dL (31-37) Red Cell Distribution Width 15.6 % (11.5-14.5) Platelet Count 111 x10^3/uL (140-400) Neutrophils (%) (Auto) 59 % (31-73) Lymphocytes (%) (Auto) 31 % (24-48) Monocytes (%) (Auto) 9 % (0-9) Eosinophils (%) (Auto) 0 % (0-3) Basophils (%) (Auto) 0 % (0-3) Neutrophils # (Auto) 3.7 x10^3uL (1.8-7.7) Lymphocytes # (Auto) 1.9 x10^3/uL (1.0-4.8) Monocytes # (Auto) 0.6 x10^3/uL (0.0-1.1) Eosinophils # (Auto) 0.0 x10^3/uL (0.0-0.7) Basophils # (Auto) 0.0 x10^3/uL (0.0-0.2) Prothrombin Time 17.4 SEC (11.7-14.0) Prothromb Time International Ratio 1.5 (0.8-1.1) Images Images CT abd/pelv - 1. Gastric distention with a large serpiginous vessels along its medial wall near the GE junction most compatible with varices 2. Hepatic cyst. 3. Evidence of previous hepatic surgery with poor definition of the liver due to artifacts. 4. Old embolization coils in the upper abdomen. 5. Enlarged periuterine vessels. VTE Prophylaxis Ordered VTE Prophylaxis Devices: Yes VTE Pharmacological Prophylaxi: No Assessment/Plan Assessment/Plan A/P: Acute blood loss anemia - likely 2/2 gastric varices. s/p EGD. Will need IR for bleeding scan or simply embolization. s/p 2u PRBC, will give 2 additional units for continued blood loss and 4FFP for elevated INR HCC - s/p surgical resection. F/u GI recs Hypotension - likely 2/2 volume depletion, will increase fluids, low threshold for pressors, dopamine prn Hypokalemia - likely from volume depletion, replaced Hyperglycemia - will place on low sliding scale. May have impaired hepatic and pancreatic function. monitor poc glucose Elevated INR - likely from transfusion. will give FFP FEN - NPO. LR @ 200cc/hr PPX - SCDs FULL CODE ICU for life-threatening blood loss JANE FIORE MD Mar 08, 2018 09:12
[2018-03-08] MEDS: OCTREOTIDE 500 MCG in IV NORMAL SALINE 100ML 100 ML IV PRN (09:58)
[2018-03-08] MEDS ORDERED: DOPamine 400MG/250ML PREMIX 400 MG/250 ML BAG IV ONE (10:00)
[2018-03-08] MEDS ORDERED: SODIUM BICARB ADULT 8.4% 50 MEQ/50 ML DISP.SYRIN. ONE ×10 (10:00→18:07)
--- NOTE | 2018-03-08 10:12 | PDOC ---
G I PROGRESS NOTE Subjective "I'm OK". Hasn't stooled overnight. No emesis. Objective Intermittently hypotensive, responds to fluid. Physical Exam Lungs clear. RRR Abdomen soft, not tender nor distended. Review of Relevant I have reviewed the following items scottie (where applicable) has been applied. Labs Laboratory Tests Test 03/07/18 18:40 03/07/18 19:11 03/07/18 22:30 03/07/18 22:40 Prothrombin Time 14.3 SEC (11.7-14.0) Prothromb Time International Ratio 1.1 (0.8-1.1) Sodium Level 143 mmol/L (136-145) Potassium Level 3.4 mmol/L (3.5-5.1) Chloride Level 109 mmol/L (98-107) Carbon Dioxide Level 22 mmol/L (21-32) Anion Gap 12 (6-14) Blood Urea Nitrogen 9 mg/dL (7-20) Creatinine 0.8 mg/dL (0.6-1.0) Estimated GFR (Cockcroft-Gault) 70.9 BUN/Creatinine Ratio 11 (6-20) Glucose Level 155 mg/dL (70-99) Calcium Level 8.4 mg/dL (8.5-10.1) Total Bilirubin 0.4 mg/dL (0.2-1.0) Aspartate Amino Transf (AST/SGOT) 73 U/L (15-37) Alanine Aminotransferase (ALT/SGPT) 47 U/L (14-59) Alkaline Phosphatase 280 U/L (46-116) Troponin I Quantitative < 0.017 ng/mL (0.000-0.055) 0.022 ng/mL (0.000-0.055) Total Protein 9.3 g/dL (6.4-8.2) Albumin 2.0 g/dL (3.4-5.0) Albumin/Globulin Ratio 0.3 (1.0-1.7) White Blood Count 8.2 x10^3/uL (4.0-11.0) 6.6 x10^3/uL (4.0-11.0) Red Blood Count 2.16 x10^6/uL (3.50-5.40) 3.02 x10^6/uL (3.50-5.40) Hemoglobin 6.7 g/dL (12.0-15.5) 9.3 g/dL (12.0-15.5) Hematocrit 19.4 % (36.0-47.0) 26.6 % (36.0-47.0) Mean Corpuscular Volume 90 fL (79-100) 88 fL (79-100) Mean Corpuscular Hemoglobin 31 pg (25-35) 31 pg (25-35) Mean Corpuscular Hemoglobin Concent 35 g/dL (31-37) 35 g/dL (31-37) Red Cell Distribution Width 16.8 % (11.5-14.5) 15.6 % (11.5-14.5) Platelet Count 151 x10^3/uL (140-400) 121 x10^3/uL (140-400) Neutrophils (%) (Auto) 58 % (31-73) Lymphocytes (%) (Auto) 32 % (24-48) Monocytes (%) (Auto) 8 % (0-9) Eosinophils (%) (Auto) 2 % (0-3) Basophils (%) (Auto) 0 % (0-3) Neutrophils # (Auto) 4.7 x10^3uL (1.8-7.7) Lymphocytes # (Auto) 2.6 x10^3/uL (1.0-4.8) Monocytes # (Auto) 0.7 x10^3/uL (0.0-1.1) Eosinophils # (Auto) 0.1 x10^3/uL (0.0-0.7) Basophils # (Auto) 0.0 x10^3/uL (0.0-0.2) Test 03/08/18 04:10 03/08/18 05:00 Sodium Level 145 mmol/L (136-145) Potassium Level 4.1 mmol/L (3.5-5.1) Chloride Level 116 mmol/L (98-107) Carbon Dioxide Level 20 mmol/L (21-32) Anion Gap 9 (6-14) Blood Urea Nitrogen 11 mg/dL (7-20) Creatinine 0.6 mg/dL (0.6-1.0) Estimated GFR (Cockcroft-Gault) 98.8 BUN/Creatinine Ratio 18 (6-20) Glucose Level 116 mg/dL (70-99) Calcium Level 6.8 mg/dL (8.5-10.1) Total Bilirubin 0.6 mg/dL (0.2-1.0) Aspartate Amino Transf (AST/SGOT) 50 U/L (15-37) Alanine Aminotransferase (ALT/SGPT) 32 U/L (14-59) Alkaline Phosphatase 166 U/L (46-116) Total Protein 6.1 g/dL (6.4-8.2) Albumin 1.3 g/dL (3.4-5.0) Albumin/Globulin Ratio 0.3 (1.0-1.7) White Blood Count 6.2 x10^3/uL (4.0-11.0) Red Blood Count 2.48 x10^6/uL (3.50-5.40) Hemoglobin 7.8 g/dL (12.0-15.5) Hematocrit 21.6 % (36.0-47.0) Mean Corpuscular Volume 87 fL (79-100) Mean Corpuscular Hemoglobin 32 pg (25-35) Mean Corpuscular Hemoglobin Concent 36 g/dL (31-37) Red Cell Distribution Width 15.6 % (11.5-14.5) Platelet Count 111 x10^3/uL (140-400) Neutrophils (%) (Auto) 59 % (31-73) Lymphocytes (%) (Auto) 31 % (24-48) Monocytes (%) (Auto) 9 % (0-9) Eosinophils (%) (Auto) 0 % (0-3) Basophils (%) (Auto) 0 % (0-3) Neutrophils # (Auto) 3.7 x10^3uL (1.8-7.7) Lymphocytes # (Auto) 1.9 x10^3/uL (1.0-4.8) Monocytes # (Auto) 0.6 x10^3/uL (0.0-1.1) Eosinophils # (Auto) 0.0 x10^3/uL (0.0-0.7) Basophils # (Auto) 0.0 x10^3/uL (0.0-0.2) Prothrombin Time 17.4 SEC (11.7-14.0) Prothromb Time International Ratio 1.5 (0.8-1.1) Laboratory Tests Test 03/07/18 18:40 03/07/18 19:11 03/07/18 22:30 03/07/18 22:40 Prothrombin Time 14.3 SEC (11.7-14.0) Prothromb Time International Ratio 1.1 (0.8-1.1) Sodium Level 143 mmol/L (136-145) Potassium Level 3.4 mmol/L (3.5-5.1) Chloride Level 109 mmol/L (98-107) Carbon Dioxide Level 22 mmol/L (21-32) Anion Gap 12 (6-14) Blood Urea Nitrogen 9 mg/dL (7-20) Creatinine 0.8 mg/dL (0.6-1.0) Estimated GFR (Cockcroft-Gault) 70.9 BUN/Creatinine Ratio 11 (6-20) Glucose Level 155 mg/dL (70-99) Calcium Level 8.4 mg/dL (8.5-10.1) Total Bilirubin 0.4 mg/dL (0.2-1.0) Aspartate Amino Transf (AST/SGOT) 73 U/L (15-37) Alanine Aminotransferase (ALT/SGPT) 47 U/L (14-59) Alkaline Phosphatase 280 U/L (46-116) Troponin I Quantitative < 0.017 ng/mL (0.000-0.055) 0.022 ng/mL (0.000-0.055) Total Protein 9.3 g/dL (6.4-8.2) Albumin 2.0 g/dL (3.4-5.0) Albumin/Globulin Ratio 0.3 (1.0-1.7) White Blood Count 8.2 x10^3/uL (4.0-11.0) 6.6 x10^3/uL (4.0-11.0) Red Blood Count 2.16 x10^6/uL (3.50-5.40) 3.02 x10^6/uL (3.50-5.40) Hemoglobin 6.7 g/dL (12.0-15.5) 9.3 g/dL (12.0-15.5) Hematocrit 19.4 % (36.0-47.0) 26.6 % (36.0-47.0) Mean Corpuscular Volume 90 fL (79-100) 88 fL (79-100) Mean Corpuscular Hemoglobin 31 pg (25-35) 31 pg (25-35) Mean Corpuscular Hemoglobin Concent 35 g/dL (31-37) 35 g/dL (31-37) Red Cell Distribution Width 16.8 % (11.5-14.5) 15.6 % (11.5-14.5) Platelet Count 151 x10^3/uL (140-400) 121 x10^3/uL (140-400) Neutrophils (%) (Auto) 58 % (31-73) Lymphocytes (%) (Auto) 32 % (24-48) Monocytes (%) (Auto) 8 % (0-9) Eosinophils (%) (Auto) 2 % (0-3) Basophils (%) (Auto) 0 % (0-3) Neutrophils # (Auto) 4.7 x10^3uL (1.8-7.7) Lymphocytes # (Auto) 2.6 x10^3/uL (1.0-4.8) Monocytes # (Auto) 0.7 x10^3/uL (0.0-1.1) Eosinophils # (Auto) 0.1 x10^3/uL (0.0-0.7) Basophils # (Auto) 0.0 x10^3/uL (0.0-0.2) Test 03/08/18 04:10 03/08/18 05:00 Sodium Level 145 mmol/L (136-145) Potassium Level 4.1 mmol/L (3.5-5.1) Chloride Level 116 mmol/L (98-107) Carbon Dioxide Level 20 mmol/L (21-32) Anion Gap 9 (6-14) Blood Urea Nitrogen 11 mg/dL (7-20) Creatinine 0.6 mg/dL (0.6-1.0) Estimated GFR (Cockcroft-Gault) 98.8 BUN/Creatinine Ratio 18 (6-20) Glucose Level 116 mg/dL (70-99) Calcium Level 6.8 mg/dL (8.5-10.1) Total Bilirubin 0.6 mg/dL (0.2-1.0) Aspartate Amino Transf (AST/SGOT) 50 U/L (15-37) Alanine Aminotransferase (ALT/SGPT) 32 U/L (14-59) Alkaline Phosphatase 166 U/L (46-116) Total Protein 6.1 g/dL (6.4-8.2) Albumin 1.3 g/dL (3.4-5.0) Albumin/Globulin Ratio 0.3 (1.0-1.7) White Blood Count 6.2 x10^3/uL (4.0-11.0) Red Blood Count 2.48 x10^6/uL (3.50-5.40) Hemoglobin 7.8 g/dL (12.0-15.5) Hematocrit 21.6 % (36.0-47.0) Mean Corpuscular Volume 87 fL (79-100) Mean Corpuscular Hemoglobin 32 pg (25-35) Mean Corpuscular Hemoglobin Concent 36 g/dL (31-37) Red Cell Distribution Width 15.6 % (11.5-14.5) Platelet Count 111 x10^3/uL (140-400) Neutrophils (%) (Auto) 59 % (31-73) Lymphocytes (%) (Auto) 31 % (24-48) Monocytes (%) (Auto) 9 % (0-9) Eosinophils (%) (Auto) 0 % (0-3) Basophils (%) (Auto) 0 % (0-3) Neutrophils # (Auto) 3.7 x10^3uL (1.8-7.7) Lymphocytes # (Auto) 1.9 x10^3/uL (1.0-4.8) Monocytes # (Auto) 0.6 x10^3/uL (0.0-1.1) Eosinophils # (Auto) 0.0 x10^3/uL (0.0-0.7) Basophils # (Auto) 0.0 x10^3/uL (0.0-0.2) Prothrombin Time 17.4 SEC (11.7-14.0) Prothromb Time International Ratio 1.5 (0.8-1.1) Hemoglobin 9.3-->7.8. Platelets falling, but adequate. INR up a smidgen. Vitals/I & O Vital Sign - Last 24 Hours 03/07/18 03/07/18 03/07/18 03/07/18 18:30 18:31 18:42 18:47 Temp 97.6 97.6 Pulse 74 76 75 75 Resp 18 24 20 18 B/P (MAP) 69/53 (58) Pulse Ox 99 100 100 100 O2 Delivery Room Air 03/07/18 03/07/18 03/07/18 03/07/18 18:55 19:05 19:15 19:31 Temp 97.2 97.2 Pulse 72 80 78 75 Resp 18 20 18 18 Pulse Ox 100 100 99 100 03/07/18 03/07/18 03/07/18 03/07/18 19:35 19:40 19:45 19:49 Temp 97.1 97.1 97.4 97.1 97.1 97.4 Pulse 62 63 63 64 Resp 18 18 16 16 Pulse Ox 99 100 100 100 03/07/18 03/07/18 03/07/18 03/07/18 19:51 19:55 20:05 20:09 Pulse 61 65 67 65 Resp 14 16 16 14 Pulse Ox 100 100 100 100 03/07/18 03/07/18 03/07/18 03/07/18 20:12 20:14 20:16 20:25 Temp 98.1 98.1 Pulse 66 66 66 66 Resp 14 16 14 16 Pulse Ox 100 100 100 100 03/07/18 03/07/18 03/07/18 03/07/18 21:00 21:15 21:23 21:30 Temp 98.6 98.1 98.6 98.1 Pulse 70 72 66 68 Resp 19 23 23 B/P (MAP) 85/38 (54) 90/58 (69) 95/50 (65) Pulse Ox 100 100 100 100 O2 Delivery Room Air Room Air Room Air 03/07/18 03/07/18 03/07/18 03/08/18 21:45 22:00 23:00 00:00 Pulse 70 74 68 66 Resp 15 14 11 15 B/P (MAP) 78/42 (54) 90/39 (56) 86/51 (63) 82/48 (59) Pulse Ox 100 100 99 98 O2 Delivery Room Air Room Air Room Air Room Air 03/08/18 03/08/18 03/08/18 03/08/18 01:00 02:00 03:00 04:00 Temp 98.4 98.4 Pulse 68 67 73 71 Resp 13 13 14 13 B/P (MAP) 84/46 (59) 93/49 (64) 85/46 (59) 80/46 (57) Pulse Ox 99 98 96 96 O2 Delivery Room Air Room Air Room Air Room Air 03/08/18 03/08/18 03/08/18 03/08/18 05:00 06:00 07:00 07:30 Temp 97.6 97.6 Pulse 64 66 70 70 Resp 12 10 13 13 B/P (MAP) 85/48 (60) 92/49 (63) 79/48 (58) 86/52 (63) Pulse Ox 98 99 97 98 O2 Delivery Room Air Room Air Room Air Room Air 03/08/18 03/08/18 08:00 08:30 Pulse 66 68 Resp 13 14 B/P (MAP) 91/57 (68) 81/54 (63) Pulse Ox 99 99 O2 Delivery Room Air Room Air Intake and Output 03/07/18 03/07/18 03/08/18 15:01 23:01 07:01 Intake Total 1000 ml 659 ml Balance 1000 ml 659 ml Images Had occasion to view CT finally; huge varix lesser curve/posterior wall stomach (under clot last night). 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 Problem List Problems Medical Problems: (1) Hypotension Status: Acute Assessment Bleeding likely from gastric varix/varices--confined to one wall of stomach and not seen at EGD due to clot. Obviously high risk to rebleed. Suspect some issue with portosplenic venous system precipitating this. Plan of Care: Continue current Tx, Mgmt Plan of Care Note Discussed with IR; he's willing to attempt BRTO if can obtain needed equipment ( not stocked). If cannot obtain, may need transfer to [facility]. He and I will continue dialogue and keep you in the loop. Recheck heme parameters at noon; platelets if drops under 50,000, FFP if INR > 1.8, blood if Hgb < 7. CALI MISHRA MD Mar 08, 2018 10:12
[2018-03-08] MEDS ORDERED: IOHEXOL 300 MG/ML 100ML VIAL. ONE (11:47)
[2018-03-08] MEDS ORDERED: LIDOCAINE WITH 8.4% SOD BICARB 3 ML DISP.SYRIN. ONE (11:47)
[2018-03-08] MEDS ORDERED: fentaNYL PF VIAL 100 MCG/2 ML VIAL ONE ×2 (12:06→18:43)
[2018-03-08] MEDS ORDERED: MIDAZOLAM HCL/PF 2 MG/2 ML VIAL. ONE (12:06)
[2018-03-08] MEDS ORDERED: MIDAZOLAM HCL/PF 2 MG/2 ML VIAL. IV ONE (12:15)
[2018-03-08] MEDS ORDERED: fentaNYL PF VIAL 100 MCG/2 ML VIAL IV ONE (12:15)
[2018-03-08] MEDS ORDERED: LIDOCAINE WITH 8.4% SOD BICARB 3 ML DISP.SYRIN. IJ ONE (12:15)
[2018-03-08] MEDS ORDERED: IOHEXOL 300 MG/ML 100ML VIAL. IART ONE (12:15)
[2018-03-08 12:21] LABS: RED BLOOD COUNT 2.1 x10^6/uL (3.50-5.40); WHITE BLOOD COUNT 7.4 x10^3/uL (4.0-11.0)
[2018-03-08 12:34] LABS: HEMATOCRIT 18.3 % (36.0-47.0); HEMOGLOBIN 6.4 g/dL (12.0-15.5)
[2018-03-08 12:40] LABS: PROTHROMBIN TIME PATIENT 18.2 SEC (11.7-14.0)
[2018-03-08] MEDS ORDERED: PHENYLEPHRINE 10 MG/ML VIAL. ONE (13:25)
[2018-03-08] MEDS ORDERED: KETAMINE HCL IN STERILE WATER 50 MG/5 ML SYRINGE ONE (14:55)
[2018-03-08] MEDS ORDERED: PROPOFOL 20 ML IV ONE ×2 (14:55→14:57)
[2018-03-08] MEDS ORDERED: SUCCINYLCHOLINE 200 MG/10 ML VIAL. ONE (14:55)
[2018-03-08] MEDS ORDERED: DEXAMETHASONE SOD PHOS 20 MG/5 ML VIAL. ONE (14:56)
[2018-03-08] MEDS ORDERED: LIDOCAINE 2% PF Vial for OR 5 ML VIAL. ONE (14:57)
[2018-03-08] MEDS ORDERED: ONDANSETRON PF 4 MG/2 ML VIAL. ONE (14:57)
[2018-03-08 14:59] LABS: BASO # 0.1 x10^3/uL (0.0-0.2); BASO % 1 % (0-3); EOS % 0 % (0-3); HEMATOCRIT 31.6 % (36.0-47.0); HEMOGLOBIN 10.9 g/dL (12.0-15.5); LYMPH # 2.7 x10^3/uL (1.0-4.8); LYMPH % 18 % (24-48); MEAN CORPUSCULAR HEMOGLOBIN 30 pg (25-35); MEAN CORPUSCULAR HGB CONC 35 g/dL (31-37); MEAN CORPUSCULAR VOLUME 87 fL (79-100); MONO # 0.6 x10^3/uL (0.0-1.1); MONO % 4 % (0-9); NEUT # 11.5 x10^3uL (1.8-7.7); NEUT % 77 % (31-73); PLATELET COUNT 102 x10^3/uL (140-400); RED BLOOD COUNT 3.65 x10^6/uL (3.50-5.40); RED CELL DISTRIBUTION WIDTH 15.4 % (11.5-14.5)
--- NOTE | 2018-03-08 15:01 | PDOC4 ---
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 patient having hematemesis. no fixable lesion on EGD. CT showed large gastric varix. details: failed cannulation of the renal outflow which prohibited continuation of the procedure. patient may have splenic vein stenosis on review of CT. postulated that splenectomy may help as it will decrease the patient's arterial inflow to the spleen and thus decompress the gastric varices. General Surgery called and notified. they have agreed to proceed with anesthesia support. Blood Loss: none from procedure. marked hematemesis during procedure. complecation: none from procedure. GEO NEAL MD Mar 08, 2018 15:01
[2018-03-08 15:16] LABS: CALCIUM 7.1 mg/dL (8.5-10.1); CREATININE 0.7 mg/dL (0.6-1.0); GFR 82.7; PROTHROMBIN TIME PATIENT 16.8 SEC (11.7-14.0)
--- NOTE | 2018-03-08 15:24 | RAD ---
PROCEDURES: 1. Left renal venogram as part of an attempted retrograde plug assisted venous obliteration of a large gastric varix. FLUOROSCOPY TIME 74.2 minutes DAP: 165.98 gycm^2 The procedure, risks, and complications, to include bleeding, infection were explained to the patient and they understood same and wished to proceed. Consent form signed. The right groin was prepped and draped using maximal sterile technique and 1% Xylocaine used for local anesthesia. Ultrasound guidance showed that the right femoral vein was patent. An ultrasound picture was saved and sent to PACS. A single wall puncture was made of the right femoral vein. A 5 Urdu sheath was placed and a Cuevas 3 Catheter was placed into the inferior vena cava. Because of the patient's small body habitus the Cuevas 3 Catheter could not be adequately formed. Therefore a Cuevas 2 catheter was used. Access into the renal vein was obtained. Then access into the very proximal portion of the splenorenal shunt was obtained for venogram. Unfortunately after multiple failed attempts including use of multiple different catheter shapes, sheath shapes and wires access into a stable position in the splenorenal shunt could not be obtained. Patient destabilized during the placement anesthesia had to be called for stabilization of the patient hemodynamically. Adequate hemodynamic stabilization was obtained by anesthesia. General surgery was then consult for splenectomy. Sheath was removed from the right common femoral vein and manual compression was performed and hemostasis was obtained. Sedation: None. Complications: None Contrast: 95 The patient tolerated the procedure well and will be transferred to the operating room for immediate splenectomy.. IMPRESSION: Failed access of the patient's splenorenal shunt for attempted but failed balloon occlusion retrograde transvenous obliteration. General surgery was consult and has agreed to perform a splenectomy with the support of anesthesia.
--- NOTE | 2018-03-08 15:44 | PDOC2 ---
CONSULT Date of Consult Date of Consult DATE: 03/08/18 TIME: 15:38 Reason for Consult Reason for Consult: Splenic varices Referring Physician Referring Physician: Estrella Identification/Chief Complaint Chief Complaint hematemesis, massive Source Source: Caregiver, Chart review, Patient History of Present Illness Reason for Visit: 72 yo F admitted with hematemesis and hematochezia, massive. Attempts at treating with EGD and embolization unsuccessful. Seen in biplane room. Past Medical History Cardiovascular: No pertinent hx Pulmonary: No pertinent hx GI: GERD, GI bleed, Other (HCC) Heme/Onc: No pertinent hx Hepatobiliary: Cirrhosis Psych: No pertinent hx Rheumatologic: No pertinent hx Infectious disease: No pertinent hx ENT: No pertinent hx Renal/: No pertinent hx Endocrine: No pertinent hx Dermatology: No pertinent hx Past Surgical History Past Surgical History: Cholecystectomy, Other (Liver resection) Family History Family History: No Significant, Diabetes Social History No ALCOHOL: none Drugs: None Current Problem List Problem List Problems Medical Problems: (1) Hypotension Status: Acute Current Medications Current Medications Current Medications Sodium Chloride 500 ml @ 500 mls/hr Q1H IV Last administered on 03/07/18at 18: 29; Start 03/07/18 at 18:30; Stop 03/07/18 at 18:42; Status DC Pantoprazole Sodium (PROTONIX VIAL for IV PUSH) 80 mg 1X ONCE IVP Last administered on 03/07/18at 19:00; Start 03/07/18 at 18:30; Stop 03/07/18 at 18 :32; Status DC Octreotide Acetate 500 mcg/ Sodium Chloride 101 ml @ 5.05 mls/hr CONT PRN IV SEE I/O RECORD Last administered on 03/08/18at 09:58; Start 03/07/18 at 19:30 Ondansetron HCl (Zofran) 4 mg PRN Q8HRS PRN IV NAUSEA/VOMITING; Start at 19:15; Stop 03/08/18 at 19:14 Iohexol (Omnipaque 300 Mg/ml) 75 ml 1X ONCE IV Last administered on at 20:32; Start 03/07/18 at 19:15; Stop 03/07/18 at 19:16; Status DC Info (CONTRAST GIVEN -- Rx MONITORING) 1 each PRN DAILY PRN MC SEE COMMENTS; Start 03/07/18 at 19:15; Stop 03/09/18 at 19:14 Propofol 20 ml @ As Directed STK-MED ONCE IV ; Start 03/07/18 at 22:37; Stop 03/07/18 at 22:38; Status DC Pantoprazole Sodium 80 mg/ Sodium Chloride 100 ml @ 10 mls/hr Q10H IV Last administered on 03/08/18at 07:20; Start 03/07/18 at 23:00 Ringer's Solution 1,000 ml @ 200 mls/hr Q5H IV Last administered on at 09:57; Start 03/07/18 at 23:15 Dopamine HCl/ Dextrose 250 ml @ 4.461 mls/ hr CONT PRN IV SEE I/O RECORD; Start 03/08/18 at 09:30 Lidocaine/Sodium Bicarbonate (Buffered Lidocaine 1%) 3 ml STK-MED ONCE .ROUTE ; Start 03/08/18 at 11:47; Stop 03/08/18 at 11:48; Status DC Iohexol (Omnipaque 300 Mg/ml) 100 ml STK-MED ONCE .ROUTE ; Start 03/08/18 at 11 :47; Stop 03/08/18 at 11:48; Status DC Heparin Sodium/ Sodium Chloride 1,000 ml @ As Directed STK-MED ONCE .ROUTE ; Start 03/08/18 at 11:47; Stop 03/08/18 at 11:48; Status DC Midazolam HCl (Versed) 2 mg STK-MED ONCE .ROUTE ; Start 03/08/18 at 12:06; Stop 03/08/18 at 12:07; Status DC Fentanyl Citrate (Fentanyl 2ml Vial) 100 mcg STK-MED ONCE .ROUTE ; Start at 12:06; Stop 03/08/18 at 12:07; Status DC Heparin Sodium/ Sodium Chloride (HEPARIN for ARTERIAL LINE FLUSH) 1,000 unit 1X ONCE IART ; Start 03/08/18 at 12:30; Stop 03/08/18 at 12:31; Status DC Lidocaine/Sodium Bicarbonate (Buffered Lidocaine 1%) 3 ml 1X ONCE IJ ; Start 03/08/18 at 12:15; Stop 03/08/18 at 12:21; Status DC Midazolam HCl (Versed) 2 mg 1X ONCE IV ; Start 03/08/18 at 12:15; Stop at 12:21; Status DC Fentanyl Citrate (Fentanyl 2ml Vial) 100 mcg 1X ONCE IV ; Start 03/08/18 at 12 :15; Stop 03/08/18 at 12:21; Status DC Iohexol (Omnipaque 300 Mg/ml) 100 ml 1X ONCE IART ; Start 03/08/18 at 12:15; Stop 03/08/18 at 12:21; Status DC Phenylephrine HCl (Wander-Synephrine Inj) 10 mg STK-MED ONCE .ROUTE ; Start at 13:25; Stop 03/08/18 at 13:26; Status DC Succinylcholine Chloride (Anectine) 200 mg STK-MED ONCE .ROUTE ; Start at 14:55; Stop 03/08/18 at 14:56; Status DC Propofol 20 ml @ As Directed STK-MED ONCE IV ; Start 03/08/18 at 14:55; Stop 03/08/18 at 14:56; Status DC Ketamine HCl (Ketamine) 50 mg STK-MED ONCE .ROUTE ; Start 03/08/18 at 14:55; Stop 03/08/18 at 14:57; Status DC Dexamethasone Sodium Phosphate (Decadron) 20 mg STK-MED ONCE .ROUTE ; Start at 14:56; Stop 03/08/18 at 14:58; Status DC Ondansetron HCl (Zofran) 4 mg STK-MED ONCE .ROUTE ; Start 03/08/18 at 14:57; Stop 03/08/18 at 14:58; Status DC Lidocaine HCl (Lidocaine Pf 2% Vial) 5 ml STK-MED ONCE .ROUTE ; Start 03/08/18 at 14:57; Stop 03/08/18 at 14:58; Status DC Propofol 20 ml @ As Directed STK-MED ONCE IV ; Start 03/08/18 at 14:57; Stop 03/08/18 at 14:58; Status DC Active Scripts Active Reported Prilosec Otc (Omeprazole Magnesium) 20 Mg Tablet. 1 Tab PO DAILY Simvastatin 20 Mg Tablet 1 Tab PO QHS Allergies Allergies: Coded Allergies: No Known Drug Allergies (Unverified , 03/07/18) ROS Gastrointestinal: Yes Hematochezia Physical Exam General: Alert, severe distress HEENT: Atraumatic, Other (blood around mouth) Lungs: Normal air movement Abdomen: Soft, Other (RUQ scar, TTP LUQ) Extremities: No clubbing, No cyanosis Skin: No rashes, No breakdown Neuro: Normal speech, Sensation intact Psych/Mental Status: Mental status NL, Mood NL Vitals VITALS Vital Signs Date Time Temp Pulse Resp B/P (MAP) Pulse Ox O2 Delivery O2 Flow Rate FiO2 03/08/18 10:09 77 13 90/57 (68) 98 Room Air 03/08/18 07:30 97.6 97.6 Labs Labs Laboratory Tests Test 03/07/18 18:40 03/07/18 19:11 03/07/18 22:30 03/07/18 22:40 Prothrombin Time 14.3 SEC (11.7-14.0) Prothromb Time International Ratio 1.1 (0.8-1.1) Sodium Level 143 mmol/L (136-145) Potassium Level 3.4 mmol/L (3.5-5.1) Chloride Level 109 mmol/L (98-107) Carbon Dioxide Level 22 mmol/L (21-32) Anion Gap 12 (6-14) Blood Urea Nitrogen 9 mg/dL (7-20) Creatinine 0.8 mg/dL (0.6-1.0) Estimated GFR (Cockcroft-Gault) 70.9 BUN/Creatinine Ratio 11 (6-20) Glucose Level 155 mg/dL (70-99) Calcium Level 8.4 mg/dL (8.5-10.1) Total Bilirubin 0.4 mg/dL (0.2-1.0) Aspartate Amino Transf (AST/SGOT) 73 U/L (15-37) Alanine Aminotransferase (ALT/SGPT) 47 U/L (14-59) Alkaline Phosphatase 280 U/L (46-116) Troponin I Quantitative < 0.017 ng/mL (0.000-0.055) 0.022 ng/mL (0.000-0.055) Total Protein 9.3 g/dL (6.4-8.2) Albumin 2.0 g/dL (3.4-5.0) Albumin/Globulin Ratio 0.3 (1.0-1.7) White Blood Count 8.2 x10^3/uL (4.0-11.0) 6.6 x10^3/uL (4.0-11.0) Red Blood Count 2.16 x10^6/uL (3.50-5.40) 3.02 x10^6/uL (3.50-5.40) Hemoglobin 6.7 g/dL (12.0-15.5) 9.3 g/dL (12.0-15.5) Hematocrit 19.4 % (36.0-47.0) 26.6 % (36.0-47.0) Mean Corpuscular Volume 90 fL (79-100) 88 fL (79-100) Mean Corpuscular Hemoglobin 31 pg (25-35) 31 pg (25-35) Mean Corpuscular Hemoglobin Concent 35 g/dL (31-37) 35 g/dL (31-37) Red Cell Distribution Width 16.8 % (11.5-14.5) 15.6 % (11.5-14.5) Platelet Count 151 x10^3/uL (140-400) 121 x10^3/uL (140-400) Neutrophils (%) (Auto) 58 % (31-73) Lymphocytes (%) (Auto) 32 % (24-48) Monocytes (%) (Auto) 8 % (0-9) Eosinophils (%) (Auto) 2 % (0-3) Basophils (%) (Auto) 0 % (0-3) Neutrophils # (Auto) 4.7 x10^3uL (1.8-7.7) Lymphocytes # (Auto) 2.6 x10^3/uL (1.0-4.8) Monocytes # (Auto) 0.7 x10^3/uL (0.0-1.1) Eosinophils # (Auto) 0.1 x10^3/uL (0.0-0.7) Basophils # (Auto) 0.0 x10^3/uL (0.0-0.2) Test 03/08/18 04:10 03/08/18 05:00 03/08/18 12:10 03/08/18 14:53 Sodium Level 145 mmol/L (136-145) 144 mmol/L (136-145) Potassium Level 4.1 mmol/L (3.5-5.1) 4.0 mmol/L (3.5-5.1) Chloride Level 116 mmol/L (98-107) 112 mmol/L (98-107) Carbon Dioxide Level 20 mmol/L (21-32) 19 mmol/L (21-32) Anion Gap 9 (6-14) 13 (6-14) Blood Urea Nitrogen 11 mg/dL (7-20) 16 mg/dL (7-20) Creatinine 0.6 mg/dL (0.6-1.0) 0.7 mg/dL (0.6-1.0) Estimated GFR (Cockcroft-Gault) 98.8 82.7 BUN/Creatinine Ratio 18 (6-20) Glucose Level 116 mg/dL (70-99) 206 mg/dL (70-99) Calcium Level 6.8 mg/dL (8.5-10.1) 7.1 mg/dL (8.5-10.1) Total Bilirubin 0.6 mg/dL (0.2-1.0) Aspartate Amino Transf (AST/SGOT) 50 U/L (15-37) Alanine Aminotransferase (ALT/SGPT) 32 U/L (14-59) Alkaline Phosphatase 166 U/L (46-116) Total Protein 6.1 g/dL (6.4-8.2) Albumin 1.3 g/dL (3.4-5.0) Albumin/Globulin Ratio 0.3 (1.0-1.7) White Blood Count 6.2 x10^3/uL (4.0-11.0) 7.4 x10^3/uL (4.0-11.0) 15.0 x10^3/uL (4.0-11.0) Red Blood Count 2.48 x10^6/uL (3.50-5.40) 2.10 x10^6/uL (3.50-5.40) 3.65 x10^6/uL (3.50-5.40) Hemoglobin 7.8 g/dL (12.0-15.5) 6.4 g/dL (12.0-15.5) 10.9 g/dL (12.0-15.5) Hematocrit 21.6 % (36.0-47.0) 18.3 % (36.0-47.0) 31.6 % (36.0-47.0) Mean Corpuscular Volume 87 fL (79-100) 87 fL (79-100) 87 fL (79-100) Mean Corpuscular Hemoglobin 32 pg (25-35) 31 pg (25-35) 30 pg (25-35) Mean Corpuscular Hemoglobin Concent 36 g/dL (31-37) 35 g/dL (31-37) 35 g/dL (31-37) Red Cell Distribution Width 15.6 % (11.5-14.5) 16.0 % (11.5-14.5) 15.4 % (11.5-14.5) Platelet Count 111 x10^3/uL (140-400) 119 x10^3/uL (140-400) 102 x10^3/uL (140-400) Neutrophils (%) (Auto) 59 % (31-73) 77 % (31-73) Lymphocytes (%) (Auto) 31 % (24-48) 18 % (24-48) Monocytes (%) (Auto) 9 % (0-9) 4 % (0-9) Eosinophils (%) (Auto) 0 % (0-3) 0 % (0-3) Basophils (%) (Auto) 0 % (0-3) 1 % (0-3) Neutrophils # (Auto) 3.7 x10^3uL (1.8-7.7) 11.5 x10^3uL (1.8-7.7) Lymphocytes # (Auto) 1.9 x10^3/uL (1.0-4.8) 2.7 x10^3/uL (1.0-4.8) Monocytes # (Auto) 0.6 x10^3/uL (0.0-1.1) 0.6 x10^3/uL (0.0-1.1) Eosinophils # (Auto) 0.0 x10^3/uL (0.0-0.7) 0.0 x10^3/uL (0.0-0.7) Basophils # (Auto) 0.0 x10^3/uL (0.0-0.2) 0.1 x10^3/uL (0.0-0.2) Prothrombin Time 17.4 SEC (11.7-14.0) 18.2 SEC (11.7-14.0) 16.8 SEC (11.7-14.0) Prothromb Time International Ratio 1.5 (0.8-1.1) 1.5 (0.8-1.1) 1.4 (0.8-1.1) Activated Partial Thromboplast Time 38 SEC (24-38) Fibrinogen 207 mg/dL (200-440) Ionized Calcium 0.84 mmol/L (1.13-1.32) Laboratory Tests Test 03/07/18 18:40 03/07/18 19:11 03/07/18 22:30 03/07/18 22:40 Prothrombin Time 14.3 SEC (11.7-14.0) Prothromb Time International Ratio 1.1 (0.8-1.1) Sodium Level 143 mmol/L (136-145) Potassium Level 3.4 mmol/L (3.5-5.1) Chloride Level 109 mmol/L (98-107) Carbon Dioxide Level 22 mmol/L (21-32) Anion Gap 12 (6-14) Blood Urea Nitrogen 9 mg/dL (7-20) Creatinine 0.8 mg/dL (0.6-1.0) Estimated GFR (Cockcroft-Gault) 70.9 BUN/Creatinine Ratio 11 (6-20) Glucose Level 155 mg/dL (70-99) Calcium Level 8.4 mg/dL (8.5-10.1) Total Bilirubin 0.4 mg/dL (0.2-1.0) Aspartate Amino Transf (AST/SGOT) 73 U/L (15-37) Alanine Aminotransferase (ALT/SGPT) 47 U/L (14-59) Alkaline Phosphatase 280 U/L (46-116) Troponin I Quantitative < 0.017 ng/mL (0.000-0.055) 0.022 ng/mL (0.000-0.055) Total Protein 9.3 g/dL (6.4-8.2) Albumin 2.0 g/dL (3.4-5.0) Albumin/Globulin Ratio 0.3 (1.0-1.7) White Blood Count 8.2 x10^3/uL (4.0-11.0) 6.6 x10^3/uL (4.0-11.0) Red Blood Count 2.16 x10^6/uL (3.50-5.40) 3.02 x10^6/uL (3.50-5.40) Hemoglobin 6.7 g/dL (12.0-15.5) 9.3 g/dL (12.0-15.5) Hematocrit 19.4 % (36.0-47.0) 26.6 % (36.0-47.0) Mean Corpuscular Volume 90 fL (79-100) 88 fL (79-100) Mean Corpuscular Hemoglobin 31 pg (25-35) 31 pg (25-35) Mean Corpuscular Hemoglobin Concent 35 g/dL (31-37) 35 g/dL (31-37) Red Cell Distribution Width 16.8 % (11.5-14.5) 15.6 % (11.5-14.5) Platelet Count 151 x10^3/uL (140-400) 121 x10^3/uL (140-400) Neutrophils (%) (Auto) 58 % (31-73) Lymphocytes (%) (Auto) 32 % (24-48) Monocytes (%) (Auto) 8 % (0-9) Eosinophils (%) (Auto) 2 % (0-3) Basophils (%) (Auto) 0 % (0-3) Neutrophils # (Auto) 4.7 x10^3uL (1.8-7.7) Lymphocytes # (Auto) 2.6 x10^3/uL (1.0-4.8) Monocytes # (Auto) 0.7 x10^3/uL (0.0-1.1) Eosinophils # (Auto) 0.1 x10^3/uL (0.0-0.7) Basophils # (Auto) 0.0 x10^3/uL (0.0-0.2) Test 03/08/18 04:10 03/08/18 05:00 03/08/18 12:10 03/08/18 14:53 Sodium Level 145 mmol/L (136-145) 144 mmol/L (136-145) Potassium Level 4.1 mmol/L (3.5-5.1) 4.0 mmol/L (3.5-5.1) Chloride Level 116 mmol/L (98-107) 112 mmol/L (98-107) Carbon Dioxide Level 20 mmol/L (21-32) 19 mmol/L (21-32) Anion Gap 9 (6-14) 13 (6-14) Blood Urea Nitrogen 11 mg/dL (7-20) 16 mg/dL (7-20) Creatinine 0.6 mg/dL (0.6-1.0) 0.7 mg/dL (0.6-1.0) Estimated GFR (Cockcroft-Gault) 98.8 82.7 BUN/Creatinine Ratio 18 (6-20) Glucose Level 116 mg/dL (70-99) 206 mg/dL (70-99) Calcium Level 6.8 mg/dL (8.5-10.1) 7.1 mg/dL (8.5-10.1) Total Bilirubin 0.6 mg/dL (0.2-1.0) Aspartate Amino Transf (AST/SGOT) 50 U/L (15-37) Alanine Aminotransferase (ALT/SGPT) 32 U/L (14-59) Alkaline Phosphatase 166 U/L (46-116) Total Protein 6.1 g/dL (6.4-8.2) Albumin 1.3 g/dL (3.4-5.0) Albumin/Globulin Ratio 0.3 (1.0-1.7) White Blood Count 6.2 x10^3/uL (4.0-11.0) 7.4 x10^3/uL (4.0-11.0) 15.0 x10^3/uL (4.0-11.0) Red Blood Count 2.48 x10^6/uL (3.50-5.40) 2.10 x10^6/uL (3.50-5.40) 3.65 x10^6/uL (3.50-5.40) Hemoglobin 7.8 g/dL (12.0-15.5) 6.4 g/dL (12.0-15.5) 10.9 g/dL (12.0-15.5) Hematocrit 21.6 % (36.0-47.0) 18.3 % (36.0-47.0) 31.6 % (36.0-47.0) Mean Corpuscular Volume 87 fL (79-100) 87 fL (79-100) 87 fL (79-100) Mean Corpuscular Hemoglobin 32 pg (25-35) 31 pg (25-35) 30 pg (25-35) Mean Corpuscular Hemoglobin Concent 36 g/dL (31-37) 35 g/dL (31-37) 35 g/dL (31-37) Red Cell Distribution Width 15.6 % (11.5-14.5) 16.0 % (11.5-14.5) 15.4 % (11.5-14.5) Platelet Count 111 x10^3/uL (140-400) 119 x10^3/uL (140-400) 102 x10^3/uL (140-400) Neutrophils (%) (Auto) 59 % (31-73) 77 % (31-73) Lymphocytes (%) (Auto) 31 % (24-48) 18 % (24-48) Monocytes (%) (Auto) 9 % (0-9) 4 % (0-9) Eosinophils (%) (Auto) 0 % (0-3) 0 % (0-3) Basophils (%) (Auto) 0 % (0-3) 1 % (0-3) Neutrophils # (Auto) 3.7 x10^3uL (1.8-7.7) 11.5 x10^3uL (1.8-7.7) Lymphocytes # (Auto) 1.9 x10^3/uL (1.0-4.8) 2.7 x10^3/uL (1.0-4.8) Monocytes # (Auto) 0.6 x10^3/uL (0.0-1.1) 0.6 x10^3/uL (0.0-1.1) Eosinophils # (Auto) 0.0 x10^3/uL (0.0-0.7) 0.0 x10^3/uL (0.0-0.7) Basophils # (Auto) 0.0 x10^3/uL (0.0-0.2) 0.1 x10^3/uL (0.0-0.2) Prothrombin Time 17.4 SEC (11.7-14.0) 18.2 SEC (11.7-14.0) 16.8 SEC (11.7-14.0) Prothromb Time International Ratio 1.5 (0.8-1.1) 1.5 (0.8-1.1) 1.4 (0.8-1.1) Activated Partial Thromboplast Time 38 SEC (24-38) Fibrinogen 207 mg/dL (200-440) Ionized Calcium 0.84 mmol/L (1.13-1.32) Images Images CT massive gastric varices, concern for splenic vein thrombosis by IR Assessment/Plan Assessment/Plan Gastric varices TO OR for emergent splenectomy. R/R/B/A d/w pt and pt's . Pt in grave peril with extensive blood loss. Risks, including, but not limited to: bleeding, infection, damage to surrounding structures, risk of anesthesia, risk of recurrence. They appear to understand, their questions are answered and they elect to proceed. Thanks for consult! MEAGAN METZ MD Mar 08, 2018 15:44
[2018-03-08] MEDS ORDERED: SURGICEL HEMOSTAT 4X8 EACH. TP ONE (15:53)
[2018-03-08] MEDS ORDERED: SURGICEL HEMOSTAT 2X3 EACH. TP ONE ×2 (15:53→15:55)
[2018-03-08] MEDS ORDERED: fentaNYL PF VIAL 250 MCG/5 ML VIAL ONE (15:54)
[2018-03-08] MEDS ORDERED: ROCURONIUM 100 MG/10 ML VIAL. ONE (15:55)
[2018-03-08] MEDS ORDERED: ceFAZolin 1GM IVPB FOR OMNI 100 ML IV ONE (15:57)
--- NOTE | 2018-03-08 16:10 | NUR ---
[id number] Fluid bolus shift change -MAP 58/ Improved pressure. AM lab resulted w/o need for blood replacement at this time. No active bleeding observed. Octreotide/Protonix gtts unchanged. Order changes noted. Family communication w Dr Grayson. Tentative IR procedure explained. C/O abd pain w immediate drop in SBP Low dose Dopamine ( see flow sheets). To IR after explanation /permit signing. H/H/INR resulted. Call to IR . Do not want blood products at this time. Return call 20 " later. Rapid infuser set up as well as ordered blood products taken to IR. Dr Oconnor in w placement and confirmation of TLC placed RIJ. Unsuccessful attempt per IR for retrograde plug. Call to Dr Alcala. Splenectomy ,pros/cons explained to after IR MD Dr Desai informed of status and need for surgery. Transported immediately from IR to OR after informed consent signed.
[2018-03-08] MEDS ORDERED: SURGICEL HEMOSTAT 4X8 EACH. ONE ×2 (16:27→16:42)
[2018-03-08] MEDS ORDERED: SURGICEL HEMOSTAT 2X3 EACH. ONE (16:42)
[2018-03-08] MEDS ORDERED: SURGICEL HEMOSTAT 2X14 EACH. ONE (16:42)
[2018-03-08] MEDS ORDERED: ALBUMIN HUMAN 5% 500 ML IV ONE ×2 (17:03→17:41)
[2018-03-08] MEDS ORDERED: EPINEPHrine SYRINGE 1 MG/10 ML SYRINGE ONE ×2 (17:03→18:40)
[2018-03-08] MEDS ORDERED: CALCIUM CHLORIDE 1,000 MG/10 ML DISP.SYRIN ONE ×4 (17:03→17:57)
[2018-03-08 17:32] LABS: CORRECTED PCO2 38 mmHg; CORRECTED PH 7.23; CORRECTED PO2 327 mmHg; FIO2 ISTAT 100; VEN BASE EXCESS ISTAT -12 mmol/L (0-3); VEN GLUC ISTAT 207 mg/dL (70-99); VEN HCO3 ISTAT 16 mmol/L (24-28); VEN HCT ISTAT 15 % (36-40); VEN HGB ISTAT 5.1 g/dL (12-15); VEN ION CA ISTAT 0.85 mmol/L (1.13-1.32); VEN K ISTAT 3.9 mmol/L (3.5-5.0); VEN NA ISTAT 147 mmol/L (135-145); VEN O2 ISTAT 327 mmHg (20-40); VEN PCO2 ISTAT 38 mmHg (41-51); VEN PH ISTAT 7.23 (7.32-7.42); VEN SO2 ISTAT 100 %; VEN TCO2 ISTAT 17 mmol/L (21-32)
[2018-03-08 17:32] LABS: ART BE ISTAT -9 mmol/L (0-3); ART GLUC ISTAT 220 mg/dL (70-99); ART HCO3 ISTAT 19 mmol/L (21-28); ART HCT ISTAT 17 % (36-40); ART HGB ISTAT 5.8 g/dL (12-15); ART ION CA ISTAT 1.34 mmol/L (1.13-1.32); ART K ISTAT 3.2 mmol/L (3.5-5.0); ART NA ISTAT 151 mmol/L (135-145); ART PCO2 ISTAT 44 mmHg (35-45); ART PH ISTAT 7.24 (7.35-7.45); ART PO2 ISTAT 317 mmHg (75-100); ART SAT O2 SAT 100 % (95-99); ART TCO2 ISTAT 20 mmol/L (21-32); CORRECTED PCO2 44 mmHg; CORRECTED PH 7.24; CORRECTED PO2 317 mmHg
[2018-03-08] MEDS ORDERED: NOREPINEPHRIN 8MG/250ML PREMIX 250 ML IV ONE (17:45)
[2018-03-08] MEDS ORDERED: VASOPRESSIN 40 UNIT in IV DEXTROSE 5% 100ML 100 ML IV ONE (18:00)
[2018-03-08] MEDS ORDERED: PROCHLORPERAZINE 10 MG/2 ML VIAL. ONE (18:42)
[2018-03-08] MEDS ORDERED: SEVOFLURANE > 120 MINUTES. IH ONE (18:48)
[2018-03-08 19:31] LABS: ART BE ISTAT -3 mmol/L (0-3); ART GLUC ISTAT 194 mg/dL (70-99); ART HCO3 ISTAT 24 mmol/L (21-28); ART HCT ISTAT 19 % (36-40); ART HGB ISTAT 6.5 g/dL (12-15); ART ION CA ISTAT 1.17 mmol/L (1.13-1.32); ART K ISTAT 3.1 mmol/L (3.5-5.0); ART NA ISTAT 155 mmol/L (135-145); ART PCO2 ISTAT 52 mmHg (35-45); ART PH ISTAT 7.27 (7.35-7.45); ART PO2 ISTAT 416 mmHg (75-100); ART SAT O2 SAT 100 % (95-99); ART TCO2 ISTAT 25 mmol/L (21-32); CORRECTED PCO2 49 mmHg; CORRECTED PH 7.28; CORRECTED PO2 411 mmHg
--- NOTE | 2018-03-08 19:46 | RAD ---
Examination: KUB History: post op spleen Comparison/Correlation: 03/07/2018 KUB x-ray exam Findings: Frontal views of the abdomen were obtained. The right flank region was not fully included. There is a drainage catheter extending from the left iliac fossa level to the left upper quadrant. Additional catheter tubing also is noted along the left flank region terminating in the left upper quadrant. There is tubing which may represent an enteric tube which on the is present slightly past the gastroesophageal junction level. Suture material and wires involving the upper quadrant are present. No bowel obstruction. Impression: No obstruction. Drainage catheter tubes are identified. Enteric tube appears to present but is only slightly beyond the expected level of the gastroesophageal junction. Further advancement should be considered by several centimeters. Electronically signed by: Khoa Galindo MD (03/08/2018 7:42 PM) [facility]
[2018-03-08 19:52] LABS: BASO % 0 % (0-3); EOS % 0 % (0-3); HEMATOCRIT 26.9 % (36.0-47.0); HEMOGLOBIN 9.4 g/dL (12.0-15.5); LYMPH # 0.7 x10^3/uL (1.0-4.8); LYMPH % 12 % (24-48); MEAN CORPUSCULAR HEMOGLOBIN 30 pg (25-35); MEAN CORPUSCULAR HGB CONC 35 g/dL (31-37); MEAN CORPUSCULAR VOLUME 87 fL (79-100); MONO # 0.4 x10^3/uL (0.0-1.1); MONO % 7 % (0-9); NEUT # 4.9 x10^3uL (1.8-7.7); NEUT % 81 % (31-73); PLATELET COUNT 43 x10^3/uL (140-400); RED BLOOD COUNT 3.11 x10^6/uL (3.50-5.40); RED CELL DISTRIBUTION WIDTH 14.7 % (11.5-14.5)
[2018-03-08] MEDS ORDERED: PROPOFOL 100 ML IV ONE (19:56)
[2018-03-08 20:02] LABS: CALCIUM 9.7 mg/dL (8.5-10.1); CREATININE 0.6 mg/dL (0.6-1.0); GFR 98.8; POTASSIUM 3.3 mmol/L (3.5-5.1)
[2018-03-08 20:03] LABS: PROTHROMBIN TIME PATIENT 19.2 SEC (11.7-14.0)
[2018-03-08 20:07] LABS: ALBUMIN 2.4 g/dL (3.4-5.0); ALBUMIN/GLOBULIN RATIO 1.5 (1.0-1.7); TOTAL BILIRUBIN 1.1 mg/dL (0.2-1.0)
[2018-03-08 20:11] LABS: PLT ESTIMATE DECREASED (ADEQUATE)
--- NOTE | 2018-03-08 20:29 | PDOC4 ---
OPERATIVE NOTE Date: Date: Mar 08, 2018 Pre-Op Diagnosis: Massive hematemesis, gastric varices Post-Op Diagnosis: same Procedure Performed: Splenectomy, gastrotomy with control of varices, G-tube placement Surgeon: Salvador Metz Anesthesia Type: GETA Blood Loss: 6 Liters Specimans Obtained: spleen Findings: Extensive gastric varices both in short gastrics and within stomach near the GE junction Complications: none Operative Note: After obtaining informed consent, patient was taken to OR emergently. Patient was induced under GETA and prepped in the usual fashion. LUQ costal margin incision was made using cautery. Liver briefly visualize, but appeared normal with evidence of scarring secondary to surgery in RUQ. Stomach was massively distended. Spleen dissected out using ligasure dissection with division of attachments. Lesser sac entered using ligasure. Dissection maintained at splenic hilum. Short gastrics taken down using ligasure. Noted to have extensive varices here and required additional stick ties of 3 0 and 0 vicryl sutures for control. Ultimately, the spleen was removed and sent to pathology for evaluation. Additional hemostasis was obtained using surgicel and cautery and this area was packed. However, pt was noted to continue to have extensive distention of stomach and large amount of blood still evacuated from NGT. Discussion made with GI service regarding intraoperative EGD, but given the amount of blood, this would not be successful. As such, a longitudinal gastrotomy was made using cautery. This revealed a large amount of blood in the stomach. Initially this was packed , but did not result in hemostasis. The stomach was explored. No evidence of flesh blood noted distally or from the duodenum. Extensive amount of blood noted from the superior aspect of the stomach. This was difficult to visualize , but ultimately extensive amount of localized gastric varices noted. This was controlled with multiple stick ties of 0 vicryl. The patient had remained in a grave state to this point, receiving many units of blood products and fluid. At this point, patient did appear to stabilize and no additional bleeding obviously noted. Gastrotomy closed with 3 0 PDS and 3 0 vicryl. 24 F gastrostomy tube placed in the greater curvature between 3 0 vicryl pursestring. 19 TERE drain was placed in LUQ and secured with 3 0 nylon. Peritoneum repaired with 0 vicryl. Anterior fascia closed with 0 looped PDS. Skin repaired with 3 0 vicryl and 4 0 monocryl. Dressing applied. Patient was in grave state throughout the procedure with extensive loss of blood via the stomach. Vital signs remained critical, but did appear to stabilize at the end of the procedure. Patient was transferred to ICU in a critical yet stable conditon, intubated. All counts correct. MEAGAN METZ MD Mar 08, 2018 20:29
[2018-03-08] MEDS ORDERED: MORPHINE SULFATE 4 MG/ML VIAL. IV PRN (20:45)
[2018-03-08] MEDS ORDERED: 0.9 % SODIUM CHLORIDE 10 ML DISP.SYRIN. IV PRN (20:45)
[2018-03-08] MEDS ORDERED: ONDANSETRON PF 4 MG/2 ML VIAL. IV PRN (20:45)
[2018-03-08] MEDS ORDERED: FAMOTIDINE 20 MG TABLET. PO SCH (21:00)
[2018-03-08 21:19] LABS: BASE EXCESS ABG -3 mmol/L (-3-3); CORRECTED PCO2 ABG 38 mmHg; CORRECTED PH ABG 7.38; CORRECTED PO2 ABG 132 mmHg; HCO3 ABG 23 mmol/L (21-28); SAT O2 ABG 98 % (92-99)
[2018-03-08 21:57] LABS: FIO2 ABG 50; PCO2 ABG 42 mmHg (35-46); PO2 ABG 145 mmHg (65-108)
[2018-03-08] MEDS ORDERED: fentaNYL PF VIAL 100 MCG/2 ML VIAL IV PRN ×2 (22:15)
[2018-03-08] MEDS: MIDAZOLAM 100mg/100ml NS BAG 100 ML IV PRN (22:52)
[2018-03-08 23:49] LABS: RED BLOOD COUNT 2.01 x10^6/uL (3.50-5.40); RED CELL DISTRIBUTION WIDTH 14.2 % (11.5-14.5); WHITE BLOOD COUNT 9.5 x10^3/uL (4.0-11.0)
[2018-03-08 23:51] LABS: HEMATOCRIT 17.3 % (36.0-47.0); HEMOGLOBIN 6.2 g/dL (12.0-15.5)
[2018-03-09] VITALS (22 sets, daily range): BP systolic 14–186; BP diastolic 46–88
[2018-03-09] MEDS ORDERED: COAGULATION FACTOR VIIA,RECOMB 1 MG VIAL. IV ONE (01:00)
--- NOTE | 2018-03-09 01:18 | PDOC ---
SURGICAL PROGRESS NOTE Subjective Pt has required increasing pressors, although vital within normal levels currently, making urine. Noted to have significant sanguinous drainage out of TERE in LUQ splenic fossa (200cc) Vital Signs Vital Signs Date Time Temp Pulse Resp B/P (MAP) Pulse Ox O2 Delivery O2 Flow Rate FiO2 03/09/18 00:19 100 Ventilator 03/08/18 15:44 89 17 2.0 03/08/18 10:09 90/57 (68) 03/08/18 07:30 97.6 97.6 I&O Intake and Output 03/09/18 07:01 Intake Total 406 ml Output Total 525 ml Balance -119 ml Intake Oral 70 ml Blood Product IV Normal Saline Flush 336 ml Output Urine Total 525 ml Emesis 0 ml PATIENT HAS A PEREIRA: Yes Abdomen: Soft, Other (G-tube with serosang drainage, TERE sanguinous ) Labs Laboratory Tests Test 03/07/18 18:40 03/07/18 19:11 03/07/18 21:08 03/07/18 22:30 Prothrombin Time 14.3 SEC (11.7-14.0) Prothromb Time International Ratio 1.1 (0.8-1.1) Sodium Level 143 mmol/L (136-145) Potassium Level 3.4 mmol/L (3.5-5.1) Chloride Level 109 mmol/L (98-107) Carbon Dioxide Level 22 mmol/L (21-32) Anion Gap 12 (6-14) Blood Urea Nitrogen 9 mg/dL (7-20) Creatinine 0.8 mg/dL (0.6-1.0) Estimated GFR (Cockcroft-Gault) 70.9 BUN/Creatinine Ratio 11 (6-20) Glucose Level 155 mg/dL (70-99) Calcium Level 8.4 mg/dL (8.5-10.1) Total Bilirubin 0.4 mg/dL (0.2-1.0) Aspartate Amino Transf (AST/SGOT) 73 U/L (15-37) Alanine Aminotransferase (ALT/SGPT) 47 U/L (14-59) Alkaline Phosphatase 280 U/L (46-116) Troponin I Quantitative < 0.017 ng/mL (0.000-0.055) 0.022 ng/mL (0.000-0.055) Total Protein 9.3 g/dL (6.4-8.2) Albumin 2.0 g/dL (3.4-5.0) Albumin/Globulin Ratio 0.3 (1.0-1.7) White Blood Count 8.2 x10^3/uL (4.0-11.0) Red Blood Count 2.16 x10^6/uL (3.50-5.40) Hemoglobin 6.7 g/dL (12.0-15.5) Hematocrit 19.4 % (36.0-47.0) Mean Corpuscular Volume 90 fL (79-100) Mean Corpuscular Hemoglobin 31 pg (25-35) Mean Corpuscular Hemoglobin Concent 35 g/dL (31-37) Red Cell Distribution Width 16.8 % (11.5-14.5) Platelet Count 151 x10^3/uL (140-400) Neutrophils (%) (Auto) 58 % (31-73) Lymphocytes (%) (Auto) 32 % (24-48) Monocytes (%) (Auto) 8 % (0-9) Eosinophils (%) (Auto) 2 % (0-3) Basophils (%) (Auto) 0 % (0-3) Neutrophils # (Auto) 4.7 x10^3uL (1.8-7.7) Lymphocytes # (Auto) 2.6 x10^3/uL (1.0-4.8) Monocytes # (Auto) 0.7 x10^3/uL (0.0-1.1) Eosinophils # (Auto) 0.1 x10^3/uL (0.0-0.7) Basophils # (Auto) 0.0 x10^3/uL (0.0-0.2) Nasal Screen MRSA (PCR) Positive (Negative) Test 03/07/18 22:40 03/08/18 04:10 03/08/18 05:00 03/08/18 12:10 White Blood Count 6.6 x10^3/uL (4.0-11.0) 6.2 x10^3/uL (4.0-11.0) 7.4 x10^3/uL (4.0-11.0) Red Blood Count 3.02 x10^6/uL (3.50-5.40) 2.48 x10^6/uL (3.50-5.40) 2.10 x10^6/uL (3.50-5.40) Hemoglobin 9.3 g/dL (12.0-15.5) 7.8 g/dL (12.0-15.5) 6.4 g/dL (12.0-15.5) Hematocrit 26.6 % (36.0-47.0) 21.6 % (36.0-47.0) 18.3 % (36.0-47.0) Mean Corpuscular Volume 88 fL (79-100) 87 fL (79-100) 87 fL (79-100) Mean Corpuscular Hemoglobin 31 pg (25-35) 32 pg (25-35) 31 pg (25-35) Mean Corpuscular Hemoglobin Concent 35 g/dL (31-37) 36 g/dL (31-37) 35 g/dL (31-37) Red Cell Distribution Width 15.6 % (11.5-14.5) 15.6 % (11.5-14.5) 16.0 % (11.5-14.5) Platelet Count 121 x10^3/uL (140-400) 111 x10^3/uL (140-400) 119 x10^3/uL (140-400) Sodium Level 145 mmol/L (136-145) Potassium Level 4.1 mmol/L (3.5-5.1) Chloride Level 116 mmol/L (98-107) Carbon Dioxide Level 20 mmol/L (21-32) Anion Gap 9 (6-14) Blood Urea Nitrogen 11 mg/dL (7-20) Creatinine 0.6 mg/dL (0.6-1.0) Estimated GFR (Cockcroft-Gault) 98.8 BUN/Creatinine Ratio 18 (6-20) Glucose Level 116 mg/dL (70-99) Calcium Level 6.8 mg/dL (8.5-10.1) Total Bilirubin 0.6 mg/dL (0.2-1.0) Aspartate Amino Transf (AST/SGOT) 50 U/L (15-37) Alanine Aminotransferase (ALT/SGPT) 32 U/L (14-59) Alkaline Phosphatase 166 U/L (46-116) Total Protein 6.1 g/dL (6.4-8.2) Albumin 1.3 g/dL (3.4-5.0) Albumin/Globulin Ratio 0.3 (1.0-1.7) Neutrophils (%) (Auto) 59 % (31-73) Lymphocytes (%) (Auto) 31 % (24-48) Monocytes (%) (Auto) 9 % (0-9) Eosinophils (%) (Auto) 0 % (0-3) Basophils (%) (Auto) 0 % (0-3) Neutrophils # (Auto) 3.7 x10^3uL (1.8-7.7) Lymphocytes # (Auto) 1.9 x10^3/uL (1.0-4.8) Monocytes # (Auto) 0.6 x10^3/uL (0.0-1.1) Eosinophils # (Auto) 0.0 x10^3/uL (0.0-0.7) Basophils # (Auto) 0.0 x10^3/uL (0.0-0.2) Prothrombin Time 17.4 SEC (11.7-14.0) 18.2 SEC (11.7-14.0) Prothromb Time International Ratio 1.5 (0.8-1.1) 1.5 (0.8-1.1) Test 03/08/18 14:53 03/08/18 16:35 03/08/18 17:01 03/08/18 18:57 White Blood Count 15.0 x10^3/uL (4.0-11.0) Red Blood Count 3.65 x10^6/uL (3.50-5.40) Hemoglobin 10.9 g/dL (12.0-15.5) Hematocrit 31.6 % (36.0-47.0) Mean Corpuscular Volume 87 fL (79-100) Mean Corpuscular Hemoglobin 30 pg (25-35) Mean Corpuscular Hemoglobin Concent 35 g/dL (31-37) Red Cell Distribution Width 15.4 % (11.5-14.5) Platelet Count 102 x10^3/uL (140-400) Neutrophils (%) (Auto) 77 % (31-73) Lymphocytes (%) (Auto) 18 % (24-48) Monocytes (%) (Auto) 4 % (0-9) Eosinophils (%) (Auto) 0 % (0-3) Basophils (%) (Auto) 1 % (0-3) Neutrophils # (Auto) 11.5 x10^3uL (1.8-7.7) Lymphocytes # (Auto) 2.7 x10^3/uL (1.0-4.8) Monocytes # (Auto) 0.6 x10^3/uL (0.0-1.1) Eosinophils # (Auto) 0.0 x10^3/uL (0.0-0.7) Basophils # (Auto) 0.1 x10^3/uL (0.0-0.2) Prothrombin Time 16.8 SEC (11.7-14.0) Prothromb Time International Ratio 1.4 (0.8-1.1) Activated Partial Thromboplast Time 38 SEC (24-38) Fibrinogen 207 mg/dL (200-440) Sodium Level 144 mmol/L (136-145) Potassium Level 4.0 mmol/L (3.5-5.1) Chloride Level 112 mmol/L (98-107) Carbon Dioxide Level 19 mmol/L (21-32) Anion Gap 13 (6-14) Blood Urea Nitrogen 16 mg/dL (7-20) Creatinine 0.7 mg/dL (0.6-1.0) Estimated GFR (Cockcroft-Gault) 82.7 Glucose Level 206 mg/dL (70-99) 207 mg/dL (70-99) 220 mg/dL (70-99) 194 mg/dL (70-99) Calcium Level 7.1 mg/dL (8.5-10.1) Ionized Calcium 0.84 mmol/L (1.13-1.32) Bedside Hematocrit 15 % (36-40) 17 % (36-40) 19 % (36-40) Arterial Blood pH (Temp corrected) 7.23 7.24 7.28 Arterial Blood pCO2 (Temp correct) 38 mmHg 44 mmHg 49 mmHg Arterial Blood pO2 (Temp corrected) 327 mmHg 317 mmHg 411 mmHg Bedside Venous pH 7.23 (7.32-7.42) Bedside Venous pCO2 38 mmHg (41-51) Bedside Venous pO2 327 mmHg (20-40) Bedside Venous HCO3 16 mmol/L (24-28) Bedside Venous Blood Total CO2 17 mmol/L (21-32) Bedside Venous Blood O2 Saturation 100 % Bedside Venous Blood Base Excess -12 mmol/L (0-3) POC Venous Hemoglobin (Calc) 5.1 g/dL (12-15) Bedside FiO2 100 100.0 100.0 Bedside Sodium 147 mmol/L (135-145) 151 mmol/L (135-145) 155 mmol/L (135-145) Bedside Potassium 3.9 mmol/L (3.5-5.0) 3.2 mmol/L (3.5-5.0) 3.1 mmol/L (3.5-5.0) Bedside Ionized Calcium (Amilcar) 0.85 mmol/L (1.13-1.32) 1.34 mmol/L (1.13-1.32) 1.17 mmol/L (1.13-1.32) Bedside Hemoglobin (Calculated) 5.8 g/dL (12-15) 6.5 g/dL (12-15) Bedside Arterial pH 7.24 (7.35-7.45) 7.27 (7.35-7.45) Bedside Arterial pCO2 44 mmHg (35-45) 52 mmHg (35-45) Bedside Arterial pO2 317 mmHg (75-100) 416 mmHg (75-100) Bedside Arterial HCO3 19 mmol/L (21-28) 24 mmol/L (21-28) Bedside Arterial Total CO2 20 mmol/L (21-32) 25 mmol/L (21-32) Arterial Bld O2 Saturation (Measur) 100 % (95-99) 100 % (95-99) Bedside Arterial Blood Base Excess -9 mmol/L (0-3) -3 mmol/L (0-3) Test 03/08/18 19:36 03/08/18 19:40 03/08/18 20:00 03/08/18 23:40 Glucose (Fingerstick) 151 mg/dL (70-99) White Blood Count 6.0 x10^3/uL (4.0-11.0) 9.5 x10^3/uL (4.0-11.0) Red Blood Count 3.11 x10^6/uL (3.50-5.40) 2.01 x10^6/uL (3.50-5.40) Hemoglobin 9.4 g/dL (12.0-15.5) 6.2 g/dL (12.0-15.5) Hematocrit 26.9 % (36.0-47.0) 17.3 % (36.0-47.0) Mean Corpuscular Volume 87 fL (79-100) 86 fL (79-100) Mean Corpuscular Hemoglobin 30 pg (25-35) 31 pg (25-35) Mean Corpuscular Hemoglobin Concent 35 g/dL (31-37) 36 g/dL (31-37) Red Cell Distribution Width 14.7 % (11.5-14.5) 14.2 % (11.5-14.5) Platelet Count 43 x10^3/uL (140-400) 154 x10^3/uL (140-400) Neutrophils (%) (Auto) 81 % (31-73) Lymphocytes (%) (Auto) 12 % (24-48) Monocytes (%) (Auto) 7 % (0-9) Eosinophils (%) (Auto) 0 % (0-3) Basophils (%) (Auto) 0 % (0-3) Neutrophils # (Auto) 4.9 x10^3uL (1.8-7.7) Lymphocytes # (Auto) 0.7 x10^3/uL (1.0-4.8) Monocytes # (Auto) 0.4 x10^3/uL (0.0-1.1) Eosinophils # (Auto) 0.0 x10^3/uL (0.0-0.7) Basophils # (Auto) 0.0 x10^3/uL (0.0-0.2) Platelet Estimate Decreased (ADEQUATE) Prothrombin Time 19.2 SEC (11.7-14.0) Prothromb Time International Ratio 1.6 (0.8-1.1) Sodium Level 158 mmol/L (136-145) Potassium Level 3.3 mmol/L (3.5-5.1) Chloride Level 120 mmol/L (98-107) Carbon Dioxide Level 24 mmol/L (21-32) Anion Gap 14 (6-14) Blood Urea Nitrogen 13 mg/dL (7-20) Creatinine 0.6 mg/dL (0.6-1.0) Estimated GFR (Cockcroft-Gault) 98.8 BUN/Creatinine Ratio 22 (6-20) Glucose Level 192 mg/dL (70-99) Calcium Level 9.7 mg/dL (8.5-10.1) Total Bilirubin 1.1 mg/dL (0.2-1.0) Aspartate Amino Transf (AST/SGOT) 26 U/L (15-37) Alanine Aminotransferase (ALT/SGPT) 24 U/L (14-59) Alkaline Phosphatase 39 U/L (46-116) Total Protein 4.0 g/dL (6.4-8.2) Albumin 2.4 g/dL (3.4-5.0) Albumin/Globulin Ratio 1.5 (1.0-1.7) O2 Saturation 98 % (92-99) Arterial Blood pH 7.35 (7.35-7.45) Arterial Blood pH (Temp corrected) 7.38 Arterial Blood pCO2 at Patient Temp 42 mmHg (35-46) Arterial Blood pCO2 (Temp correct) 38 mmHg Arterial Blood pO2 at Patient Temp 145 mmHg (65-108) Arterial Blood pO2 (Temp corrected) 132 mmHg Arterial Blood HCO3 23 mmol/L (21-28) Arterial Blood Base Excess -3 mmol/L (-3-3) FiO2 50 Laboratory Tests Test 03/08/18 04:10 03/08/18 05:00 03/08/18 12:10 03/08/18 14:53 Sodium Level 145 mmol/L (136-145) 144 mmol/L (136-145) Potassium Level 4.1 mmol/L (3.5-5.1) 4.0 mmol/L (3.5-5.1) Chloride Level 116 mmol/L (98-107) 112 mmol/L (98-107) Carbon Dioxide Level 20 mmol/L (21-32) 19 mmol/L (21-32) Anion Gap 9 (6-14) 13 (6-14) Blood Urea Nitrogen 11 mg/dL (7-20) 16 mg/dL (7-20) Creatinine 0.6 mg/dL (0.6-1.0) 0.7 mg/dL (0.6-1.0) Estimated GFR (Cockcroft-Gault) 98.8 82.7 BUN/Creatinine Ratio 18 (6-20) Glucose Level 116 mg/dL (70-99) 206 mg/dL (70-99) Calcium Level 6.8 mg/dL (8.5-10.1) 7.1 mg/dL (8.5-10.1) Total Bilirubin 0.6 mg/dL (0.2-1.0) Aspartate Amino Transf (AST/SGOT) 50 U/L (15-37) Alanine Aminotransferase (ALT/SGPT) 32 U/L (14-59) Alkaline Phosphatase 166 U/L (46-116) Total Protein 6.1 g/dL (6.4-8.2) Albumin 1.3 g/dL (3.4-5.0) Albumin/Globulin Ratio 0.3 (1.0-1.7) White Blood Count 6.2 x10^3/uL (4.0-11.0) 7.4 x10^3/uL (4.0-11.0) 15.0 x10^3/uL (4.0-11.0) Red Blood Count 2.48 x10^6/uL (3.50-5.40) 2.10 x10^6/uL (3.50-5.40) 3.65 x10^6/uL (3.50-5.40) Hemoglobin 7.8 g/dL (12.0-15.5) 6.4 g/dL (12.0-15.5) 10.9 g/dL (12.0-15.5) Hematocrit 21.6 % (36.0-47.0) 18.3 % (36.0-47.0) 31.6 % (36.0-47.0) Mean Corpuscular Volume 87 fL (79-100) 87 fL (79-100) 87 fL (79-100) Mean Corpuscular Hemoglobin 32 pg (25-35) 31 pg (25-35) 30 pg (25-35) Mean Corpuscular Hemoglobin Concent 36 g/dL (31-37) 35 g/dL (31-37) 35 g/dL (31-37) Red Cell Distribution Width 15.6 % (11.5-14.5) 16.0 % (11.5-14.5) 15.4 % (11.5-14.5) Platelet Count 111 x10^3/uL (140-400) 119 x10^3/uL (140-400) 102 x10^3/uL (140-400) Neutrophils (%) (Auto) 59 % (31-73) 77 % (31-73) Lymphocytes (%) (Auto) 31 % (24-48) 18 % (24-48) Monocytes (%) (Auto) 9 % (0-9) 4 % (0-9) Eosinophils (%) (Auto) 0 % (0-3) 0 % (0-3) Basophils (%) (Auto) 0 % (0-3) 1 % (0-3) Neutrophils # (Auto) 3.7 x10^3uL (1.8-7.7) 11.5 x10^3uL (1.8-7.7) Lymphocytes # (Auto) 1.9 x10^3/uL (1.0-4.8) 2.7 x10^3/uL (1.0-4.8) Monocytes # (Auto) 0.6 x10^3/uL (0.0-1.1) 0.6 x10^3/uL (0.0-1.1) Eosinophils # (Auto) 0.0 x10^3/uL (0.0-0.7) 0.0 x10^3/uL (0.0-0.7) Basophils # (Auto) 0.0 x10^3/uL (0.0-0.2) 0.1 x10^3/uL (0.0-0.2) Prothrombin Time 17.4 SEC (11.7-14.0) 18.2 SEC (11.7-14.0) 16.8 SEC (11.7-14.0) Prothromb Time International Ratio 1.5 (0.8-1.1) 1.5 (0.8-1.1) 1.4 (0.8-1.1) Activated Partial Thromboplast Time 38 SEC (24-38) Fibrinogen 207 mg/dL (200-440) Ionized Calcium 0.84 mmol/L (1.13-1.32) Test 03/08/18 16:35 03/08/18 17:01 03/08/18 18:57 03/08/18 19:36 Bedside Hematocrit 15 % (36-40) 17 % (36-40) 19 % (36-40) Arterial Blood pH (Temp corrected) 7.23 7.24 7.28 Arterial Blood pCO2 (Temp correct) 38 mmHg 44 mmHg 49 mmHg Arterial Blood pO2 (Temp corrected) 327 mmHg 317 mmHg 411 mmHg Bedside Venous pH 7.23 (7.32-7.42) Bedside Venous pCO2 38 mmHg (41-51) Bedside Venous pO2 327 mmHg (20-40) Bedside Venous HCO3 16 mmol/L (24-28) Bedside Venous Blood Total CO2 17 mmol/L (21-32) Bedside Venous Blood O2 Saturation 100 % Bedside Venous Blood Base Excess -12 mmol/L (0-3) POC Venous Hemoglobin (Calc) 5.1 g/dL (12-15) Bedside FiO2 100 100.0 100.0 Bedside Sodium 147 mmol/L (135-145) 151 mmol/L (135-145) 155 mmol/L (135-145) Bedside Potassium 3.9 mmol/L (3.5-5.0) 3.2 mmol/L (3.5-5.0) 3.1 mmol/L (3.5-5.0) Glucose Level 207 mg/dL (70-99) 220 mg/dL (70-99) 194 mg/dL (70-99) Bedside Ionized Calcium (Amilcar) 0.85 mmol/L (1.13-1.32) 1.34 mmol/L (1.13-1.32) 1.17 mmol/L (1.13-1.32) Bedside Hemoglobin (Calculated) 5.8 g/dL (12-15) 6.5 g/dL (12-15) Bedside Arterial pH 7.24 (7.35-7.45) 7.27 (7.35-7.45) Bedside Arterial pCO2 44 mmHg (35-45) 52 mmHg (35-45) Bedside Arterial pO2 317 mmHg (75-100) 416 mmHg (75-100) Bedside Arterial HCO3 19 mmol/L (21-28) 24 mmol/L (21-28) Bedside Arterial Total CO2 20 mmol/L (21-32) 25 mmol/L (21-32) Arterial Bld O2 Saturation (Measur) 100 % (95-99) 100 % (95-99) Bedside Arterial Blood Base Excess -9 mmol/L (0-3) -3 mmol/L (0-3) Glucose (Fingerstick) 151 mg/dL (70-99) Test 03/08/18 19:40 03/08/18 20:00 03/08/18 23:40 White Blood Count 6.0 x10^3/uL (4.0-11.0) 9.5 x10^3/uL (4.0-11.0) Red Blood Count 3.11 x10^6/uL (3.50-5.40) 2.01 x10^6/uL (3.50-5.40) Hemoglobin 9.4 g/dL (12.0-15.5) 6.2 g/dL (12.0-15.5) Hematocrit 26.9 % (36.0-47.0) 17.3 % (36.0-47.0) Mean Corpuscular Volume 87 fL (79-100) 86 fL (79-100) Mean Corpuscular Hemoglobin 30 pg (25-35) 31 pg (25-35) Mean Corpuscular Hemoglobin Concent 35 g/dL (31-37) 36 g/dL (31-37) Red Cell Distribution Width 14.7 % (11.5-14.5) 14.2 % (11.5-14.5) Platelet Count 43 x10^3/uL (140-400) 154 x10^3/uL (140-400) Neutrophils (%) (Auto) 81 % (31-73) Lymphocytes (%) (Auto) 12 % (24-48) Monocytes (%) (Auto) 7 % (0-9) Eosinophils (%) (Auto) 0 % (0-3) Basophils (%) (Auto) 0 % (0-3) Neutrophils # (Auto) 4.9 x10^3uL (1.8-7.7) Lymphocytes # (Auto) 0.7 x10^3/uL (1.0-4.8) Monocytes # (Auto) 0.4 x10^3/uL (0.0-1.1) Eosinophils # (Auto) 0.0 x10^3/uL (0.0-0.7) Basophils # (Auto) 0.0 x10^3/uL (0.0-0.2) Platelet Estimate Decreased (ADEQUATE) Prothrombin Time 19.2 SEC (11.7-14.0) Prothromb Time International Ratio 1.6 (0.8-1.1) Sodium Level 158 mmol/L (136-145) Potassium Level 3.3 mmol/L (3.5-5.1) Chloride Level 120 mmol/L (98-107) Carbon Dioxide Level 24 mmol/L (21-32) Anion Gap 14 (6-14) Blood Urea Nitrogen 13 mg/dL (7-20) Creatinine 0.6 mg/dL (0.6-1.0) Estimated GFR (Cockcroft-Gault) 98.8 BUN/Creatinine Ratio 22 (6-20) Glucose Level 192 mg/dL (70-99) Calcium Level 9.7 mg/dL (8.5-10.1) Total Bilirubin 1.1 mg/dL (0.2-1.0) Aspartate Amino Transf (AST/SGOT) 26 U/L (15-37) Alanine Aminotransferase (ALT/SGPT) 24 U/L (14-59) Alkaline Phosphatase 39 U/L (46-116) Total Protein 4.0 g/dL (6.4-8.2) Albumin 2.4 g/dL (3.4-5.0) Albumin/Globulin Ratio 1.5 (1.0-1.7) O2 Saturation 98 % (92-99) Arterial Blood pH 7.35 (7.35-7.45) Arterial Blood pH (Temp corrected) 7.38 Arterial Blood pCO2 at Patient Temp 42 mmHg (35-46) Arterial Blood pCO2 (Temp correct) 38 mmHg Arterial Blood pO2 at Patient Temp 145 mmHg (65-108) Arterial Blood pO2 (Temp corrected) 132 mmHg Arterial Blood HCO3 23 mmol/L (21-28) Arterial Blood Base Excess -3 mmol/L (-3-3) FiO2 50 Problem List Problems Medical Problems: (1) Hypotension Status: Acute Assessment/Plan rebleeding from splenic fossa d/w pt's and anesthesia attempting additional blood products will plan return to OR to reevaluate for bleeding R/R/B/A d/w pt's . Pt's prognosis is grave. MEAGAN METZ MD Mar 09, 2018 01:18
[2018-03-09] MEDS ORDERED: NOREPINEPHRIN 8MG/250ML PREMIX 250 ML IV PRN (01:45)
[2018-03-09] MEDS ORDERED: ROCURONIUM 100 MG/10 ML VIAL. ONE (01:57)
[2018-03-09] MEDS ORDERED: SURGICEL HEMOSTAT 4X8 EACH. TP ONE ×2 (02:04)
[2018-03-09] MEDS ORDERED: fentaNYL PF VIAL 250 MCG/5 ML VIAL ONE (02:13)
[2018-03-09] MEDS ORDERED: SURGICEL HEMOSTAT 2X14 EACH. ONE (02:23)
[2018-03-09] MEDS ORDERED: SURGICEL HEMOSTAT 4X8 EACH. ONE (02:23)
[2018-03-09] MEDS ORDERED: SURGICEL HEMOSTAT 2X3 EACH. ONE (02:23)
[2018-03-09 02:40] LABS: BASO % 0 % (0-3); EOS % 0 % (0-3); LYMPH # 1.7 x10^3/uL (1.0-4.8); LYMPH % 16 % (24-48); MEAN CORPUSCULAR HEMOGLOBIN 31 pg (25-35); MEAN CORPUSCULAR HGB CONC 36 g/dL (31-37); MEAN CORPUSCULAR VOLUME 86 fL (79-100); MONO # 0.8 x10^3/uL (0.0-1.1); MONO % 8 % (0-9); NEUT # 7.8 x10^3uL (1.8-7.7); NEUT % 76 % (31-73); PLATELET COUNT 160 x10^3/uL (140-400); RED BLOOD COUNT 2.11 x10^6/uL (3.50-5.40); RED CELL DISTRIBUTION WIDTH 14.5 % (11.5-14.5); WHITE BLOOD COUNT 10.2 x10^3/uL (4.0-11.0)
[2018-03-09 02:49] LABS: PROTHROMBIN TIME PATIENT 19.2 SEC (11.7-14.0)
[2018-03-09 02:52] LABS: CREATININE 0.7 mg/dL (0.6-1.0); GFR 82.7; POTASSIUM 4.1 mmol/L (3.5-5.1)
[2018-03-09 02:55] LABS: HEMATOCRIT 18.2 % (36.0-47.0); HEMOGLOBIN 6.5 g/dL (12.0-15.5)
--- NOTE | 2018-03-09 03:26 | PDOC4 ---
OPERATIVE NOTE Date: Date: Mar 09, 2018 Pre-Op Diagnosis: Hypotension Post-Op Diagnosis: Bleeding from splenic fossa Procedure Performed: Reexploration Surgeon: Salvador Metz Anesthesia Type: GETA Blood Loss: 1300 Specimans Obtained: none Findings: 1300 cc blood from splenic fossa, general oozing of tissue, but no vessel bleeding Complications: none Operative Note: After obtaining informed consent, patient was taken to OR, induced under GETA and prepped in the usual fashion. Previous laparotomy incision reopened. 1300 cc blood evacuated out. Clot was noted. LUQ was thoroughly explored. Some oozing bleeding was noted from splenic fossa. This was controlled with cautery and ligasure. Stomach noted to be intact, viable, without any bleeding. No significant bleeding was noted from NGT. Stomach closure and G-tube intact. Left colon and visualized small bowel intact and viable. Area was irrigated. Surgicel, maddison, tisseal was placed in splenic fossa. This was observed and no additional bleeding noted. Drain returned. Peritoneum closed with 0 vicryl. Fascia repaired with looped 0 PDS. Skin repaired with 3 0 vicryl and 4 0 monocryl. Dressing placed. Patient remained in a much better vascular status at this time. Pressors were weaned off. Additional blood products were given per anesthesia record. All counts correct. MEAGAN METZ MD Mar 09, 2018 03:26
[2018-03-09 03:29] LABS: ART BE ISTAT -5 mmol/L (0-3); ART GLUC ISTAT 190 mg/dL (70-99); ART HCO3 ISTAT 20 mmol/L (21-28); ART HCT ISTAT 23 % (36-40); ART HGB ISTAT 7.8 g/dL (12-15); ART ION CA ISTAT 1.08 mmol/L (1.13-1.32); ART K ISTAT 3.7 mmol/L (3.5-5.0); ART NA ISTAT 153 mmol/L (135-145); ART PCO2 ISTAT 38 mmHg (35-45); ART PH ISTAT 7.34 (7.35-7.45); ART PO2 ISTAT 313 mmHg (75-100); ART SAT O2 SAT 100 % (95-99); ART TCO2 ISTAT 22 mmol/L (21-32); CORRECTED PCO2 36 mmHg; CORRECTED PH 7.35; CORRECTED PO2 308 mmHg
[2018-03-09] MEDS ORDERED: 0.9 % SODIUM CHLORIDE 10 ML DISP.SYRIN. IV PRN (03:30)
[2018-03-09 07:31] LABS: BASO % 0 % (0-3); EOS % 0 % (0-3); HEMATOCRIT 39.2 % (36.0-47.0); LYMPH # 1.7 x10^3/uL (1.0-4.8); LYMPH % 19 % (24-48); MEAN CORPUSCULAR HEMOGLOBIN 30 pg (25-35); MEAN CORPUSCULAR HGB CONC 35 g/dL (31-37); MEAN CORPUSCULAR VOLUME 87 fL (79-100); MONO # 0.7 x10^3/uL (0.0-1.1); MONO % 8 % (0-9); NEUT # 6.5 x10^3uL (1.8-7.7); NEUT % 73 % (31-73); PLATELET COUNT 79 x10^3/uL (140-400); RED CELL DISTRIBUTION WIDTH 14.9 % (11.5-14.5); WHITE BLOOD COUNT 8.9 x10^3/uL (4.0-11.0)
[2018-03-09 07:35] LABS: HEMOGLOBIN 13.6 g/dL (12.0-15.5)
[2018-03-09 07:46] LABS: CREATININE 0.7 mg/dL (0.6-1.0); GFR 82.7; MAGNESIUM 1.2 mg/dL (1.8-2.4); PHOSPHORUS 3.7 mg/dL (2.6-4.7); POTASSIUM 3.5 mmol/L (3.5-5.1)
[2018-03-09] MEDS: PANTOPRAZOLE SODIUM IV DRIP 80 MG in IV NORMAL SALINE 100ML 100 ML IV SCH ×2 (07:50→17:40)
[2018-03-09 07:51] LABS: CALCIUM 8.4 mg/dL (8.5-10.1)
--- NOTE | 2018-03-09 08:00 | NUR ---
Dr. Alcala notified of high GORGE out of sanginous fluid, instructed to let the gorge bulb fill up and then not to empty or compress the bulb for a while.
--- NOTE | 2018-03-09 08:16 | RAD ---
EXAM: Supine AP view of the abdomen DATE: 03/09/2018 3:29 AM INDICATION: POST OP COMPARISON: No Prior FINDINGS: Drains are seen in the left abdomen. Right upper quadrant vascular coils are seen. No abnormal small or large bowel dilatation. Moderate colonic stool content. No abnormal soft tissue mass effect. No suspicious calcifications are seen. Evaluation for free intraperitoneal gas is limited on this supine exam. IMPRESSION: 1. No evidence for bowel obstruction. 2. Drains are stable left upper quadrant. Electronically signed by: Wilfrido De Souza MD (03/09/2018 8:12 AM) [facility]
--- NOTE | 2018-03-09 08:18 | RAD ---
EXAM: Chest, single view. HISTORY: Ventilatory support. COMPARISON: None. FINDINGS: A frontal view of the chest obtained. There is stable left lower lobe infiltrate or atelectasis. No pleural effusion or pneumothorax is seen. The heart is normal in size. There is an endotracheal tube within the distal trachea, with the tip approximately 1.2 cm from the gray. There is a right internal jugular catheter with the tip in the superior vena cava. There is a nasogastric tube within the proximal stomach with the side-port likely in the distal esophagus. There is a catheter overlying the left upper quadrant. IMPRESSION: 1. Stable left lower lobe atelectasis or infiltrate. 2. Support lines and tubes, described above. Note is made that the nasogastric tube side-port overlies expected location of the distal esophagus and endotracheal tube tip is 1.2 cm from the gray. Electronically signed by: Rosita Tamayo MD (03/09/2018 8:13 AM) [id number]
[2018-03-09 08:35] LABS: BASE EXCESS ABG -2 mmol/L (-3-3); HCO3 ABG 22 mmol/L (21-28); PCO2 ABG 34 mmHg (35-46); PO2 ABG 106 mmHg (65-108); SAT O2 ABG 97 % (92-99)
--- NOTE | 2018-03-09 08:55 | NUR ---
IP: Pt is mrsa screen + requiring contact precautions.
[2018-03-09 08:59] LABS: FIO2 ABG 50%
--- NOTE | 2018-03-09 09:02 | PDOC ---
MARG[employer] 03/09/18 0902: SURGICAL PROGRESS NOTE Subjective intubated vent Vital Signs Vital Signs Date Time Temp Pulse Resp B/P (MAP) Pulse Ox O2 Delivery O2 Flow Rate FiO2 03/09/18 08:25 100 Ventilator 03/09/18 06:20 98.2 71 16 113/65 (81) 98.2 03/08/18 15:44 2.0 I&O Intake and Output 03/09/18 07:01 Intake Total 456 ml Output Total 2340 ml Balance -1884 ml Intake Oral 120 ml Blood Product IV Normal Saline Flush 336 ml Output Urine Total 1295 ml Gastric Drainage Total 15 ml Emesis 0 ml Drainage Total 1030 ml PATIENT HAS A PEREIRA: Yes General: Other (sedated) Abdomen: Soft, Other (distended, gorge bloody, g tube bloody drainage) Labs Laboratory Tests Test 03/07/18 18:40 03/07/18 19:11 03/07/18 21:08 03/07/18 22:30 Prothrombin Time 14.3 SEC (11.7-14.0) Prothromb Time International Ratio 1.1 (0.8-1.1) Sodium Level 143 mmol/L (136-145) Potassium Level 3.4 mmol/L (3.5-5.1) Chloride Level 109 mmol/L (98-107) Carbon Dioxide Level 22 mmol/L (21-32) Anion Gap 12 (6-14) Blood Urea Nitrogen 9 mg/dL (7-20) Creatinine 0.8 mg/dL (0.6-1.0) Estimated GFR (Cockcroft-Gault) 70.9 BUN/Creatinine Ratio 11 (6-20) Glucose Level 155 mg/dL (70-99) Calcium Level 8.4 mg/dL (8.5-10.1) Total Bilirubin 0.4 mg/dL (0.2-1.0) Aspartate Amino Transf (AST/SGOT) 73 U/L (15-37) Alanine Aminotransferase (ALT/SGPT) 47 U/L (14-59) Alkaline Phosphatase 280 U/L (46-116) Troponin I Quantitative < 0.017 ng/mL (0.000-0.055) 0.022 ng/mL (0.000-0.055) Total Protein 9.3 g/dL (6.4-8.2) Albumin 2.0 g/dL (3.4-5.0) Albumin/Globulin Ratio 0.3 (1.0-1.7) White Blood Count 8.2 x10^3/uL (4.0-11.0) Red Blood Count 2.16 x10^6/uL (3.50-5.40) Hemoglobin 6.7 g/dL (12.0-15.5) Hematocrit 19.4 % (36.0-47.0) Mean Corpuscular Volume 90 fL (79-100) Mean Corpuscular Hemoglobin 31 pg (25-35) Mean Corpuscular Hemoglobin Concent 35 g/dL (31-37) Red Cell Distribution Width 16.8 % (11.5-14.5) Platelet Count 151 x10^3/uL (140-400) Neutrophils (%) (Auto) 58 % (31-73) Lymphocytes (%) (Auto) 32 % (24-48) Monocytes (%) (Auto) 8 % (0-9) Eosinophils (%) (Auto) 2 % (0-3) Basophils (%) (Auto) 0 % (0-3) Neutrophils # (Auto) 4.7 x10^3uL (1.8-7.7) Lymphocytes # (Auto) 2.6 x10^3/uL (1.0-4.8) Monocytes # (Auto) 0.7 x10^3/uL (0.0-1.1) Eosinophils # (Auto) 0.1 x10^3/uL (0.0-0.7) Basophils # (Auto) 0.0 x10^3/uL (0.0-0.2) Nasal Screen MRSA (PCR) Positive (Negative) Test 03/07/18 22:40 03/08/18 04:10 03/08/18 05:00 03/08/18 12:10 White Blood Count 6.6 x10^3/uL (4.0-11.0) 6.2 x10^3/uL (4.0-11.0) 7.4 x10^3/uL (4.0-11.0) Red Blood Count 3.02 x10^6/uL (3.50-5.40) 2.48 x10^6/uL (3.50-5.40) 2.10 x10^6/uL (3.50-5.40) Hemoglobin 9.3 g/dL (12.0-15.5) 7.8 g/dL (12.0-15.5) 6.4 g/dL (12.0-15.5) Hematocrit 26.6 % (36.0-47.0) 21.6 % (36.0-47.0) 18.3 % (36.0-47.0) Mean Corpuscular Volume 88 fL (79-100) 87 fL (79-100) 87 fL (79-100) Mean Corpuscular Hemoglobin 31 pg (25-35) 32 pg (25-35) 31 pg (25-35) Mean Corpuscular Hemoglobin Concent 35 g/dL (31-37) 36 g/dL (31-37) 35 g/dL (31-37) Red Cell Distribution Width 15.6 % (11.5-14.5) 15.6 % (11.5-14.5) 16.0 % (11.5-14.5) Platelet Count 121 x10^3/uL (140-400) 111 x10^3/uL (140-400) 119 x10^3/uL (140-400) Sodium Level 145 mmol/L (136-145) Potassium Level 4.1 mmol/L (3.5-5.1) Chloride Level 116 mmol/L (98-107) Carbon Dioxide Level 20 mmol/L (21-32) Anion Gap 9 (6-14) Blood Urea Nitrogen 11 mg/dL (7-20) Creatinine 0.6 mg/dL (0.6-1.0) Estimated GFR (Cockcroft-Gault) 98.8 BUN/Creatinine Ratio 18 (6-20) Glucose Level 116 mg/dL (70-99) Calcium Level 6.8 mg/dL (8.5-10.1) Total Bilirubin 0.6 mg/dL (0.2-1.0) Aspartate Amino Transf (AST/SGOT) 50 U/L (15-37) Alanine Aminotransferase (ALT/SGPT) 32 U/L (14-59) Alkaline Phosphatase 166 U/L (46-116) Total Protein 6.1 g/dL (6.4-8.2) Albumin 1.3 g/dL (3.4-5.0) Albumin/Globulin Ratio 0.3 (1.0-1.7) Neutrophils (%) (Auto) 59 % (31-73) Lymphocytes (%) (Auto) 31 % (24-48) Monocytes (%) (Auto) 9 % (0-9) Eosinophils (%) (Auto) 0 % (0-3) Basophils (%) (Auto) 0 % (0-3) Neutrophils # (Auto) 3.7 x10^3uL (1.8-7.7) Lymphocytes # (Auto) 1.9 x10^3/uL (1.0-4.8) Monocytes # (Auto) 0.6 x10^3/uL (0.0-1.1) Eosinophils # (Auto) 0.0 x10^3/uL (0.0-0.7) Basophils # (Auto) 0.0 x10^3/uL (0.0-0.2) Prothrombin Time 17.4 SEC (11.7-14.0) 18.2 SEC (11.7-14.0) Prothromb Time International Ratio 1.5 (0.8-1.1) 1.5 (0.8-1.1) Test 03/08/18 14:53 03/08/18 16:35 03/08/18 17:01 03/08/18 18:57 White Blood Count 15.0 x10^3/uL (4.0-11.0) Red Blood Count 3.65 x10^6/uL (3.50-5.40) Hemoglobin 10.9 g/dL (12.0-15.5) Hematocrit 31.6 % (36.0-47.0) Mean Corpuscular Volume 87 fL (79-100) Mean Corpuscular Hemoglobin 30 pg (25-35) Mean Corpuscular Hemoglobin Concent 35 g/dL (31-37) Red Cell Distribution Width 15.4 % (11.5-14.5) Platelet Count 102 x10^3/uL (140-400) Neutrophils (%) (Auto) 77 % (31-73) Lymphocytes (%) (Auto) 18 % (24-48) Monocytes (%) (Auto) 4 % (0-9) Eosinophils (%) (Auto) 0 % (0-3) Basophils (%) (Auto) 1 % (0-3) Neutrophils # (Auto) 11.5 x10^3uL (1.8-7.7) Lymphocytes # (Auto) 2.7 x10^3/uL (1.0-4.8) Monocytes # (Auto) 0.6 x10^3/uL (0.0-1.1) Eosinophils # (Auto) 0.0 x10^3/uL (0.0-0.7) Basophils # (Auto) 0.1 x10^3/uL (0.0-0.2) Prothrombin Time 16.8 SEC (11.7-14.0) Prothromb Time International Ratio 1.4 (0.8-1.1) Activated Partial Thromboplast Time 38 SEC (24-38) Fibrinogen 207 mg/dL (200-440) Sodium Level 144 mmol/L (136-145) Potassium Level 4.0 mmol/L (3.5-5.1) Chloride Level 112 mmol/L (98-107) Carbon Dioxide Level 19 mmol/L (21-32) Anion Gap 13 (6-14) Blood Urea Nitrogen 16 mg/dL (7-20) Creatinine 0.7 mg/dL (0.6-1.0) Estimated GFR (Cockcroft-Gault) 82.7 Glucose Level 206 mg/dL (70-99) 207 mg/dL (70-99) 220 mg/dL (70-99) 194 mg/dL (70-99) Calcium Level 7.1 mg/dL (8.5-10.1) Ionized Calcium 0.84 mmol/L (1.13-1.32) Bedside Hematocrit 15 % (36-40) 17 % (36-40) 19 % (36-40) Arterial Blood pH (Temp corrected) 7.23 7.24 7.28 Arterial Blood pCO2 (Temp correct) 38 mmHg 44 mmHg 49 mmHg Arterial Blood pO2 (Temp corrected) 327 mmHg 317 mmHg 411 mmHg Bedside Venous pH 7.23 (7.32-7.42) Bedside Venous pCO2 38 mmHg (41-51) Bedside Venous pO2 327 mmHg (20-40) Bedside Venous HCO3 16 mmol/L (24-28) Bedside Venous Blood Total CO2 17 mmol/L (21-32) Bedside Venous Blood O2 Saturation 100 % Bedside Venous Blood Base Excess -12 mmol/L (0-3) POC Venous Hemoglobin (Calc) 5.1 g/dL (12-15) Bedside FiO2 100 100.0 100.0 Bedside Sodium 147 mmol/L (135-145) 151 mmol/L (135-145) 155 mmol/L (135-145) Bedside Potassium 3.9 mmol/L (3.5-5.0) 3.2 mmol/L (3.5-5.0) 3.1 mmol/L (3.5-5.0) Bedside Ionized Calcium (Amilcar) 0.85 mmol/L (1.13-1.32) 1.34 mmol/L (1.13-1.32) 1.17 mmol/L (1.13-1.32) Bedside Hemoglobin (Calculated) 5.8 g/dL (12-15) 6.5 g/dL (12-15) Bedside Arterial pH 7.24 (7.35-7.45) 7.27 (7.35-7.45) Bedside Arterial pCO2 44 mmHg (35-45) 52 mmHg (35-45) Bedside Arterial pO2 317 mmHg (75-100) 416 mmHg (75-100) Bedside Arterial HCO3 19 mmol/L (21-28) 24 mmol/L (21-28) Bedside Arterial Total CO2 20 mmol/L (21-32) 25 mmol/L (21-32) Arterial Bld O2 Saturation (Measur) 100 % (95-99) 100 % (95-99) Bedside Arterial Blood Base Excess -9 mmol/L (0-3) -3 mmol/L (0-3) Test 03/08/18 19:36 03/08/18 19:40 03/08/18 20:00 03/08/18 23:40 Glucose (Fingerstick) 151 mg/dL (70-99) White Blood Count 6.0 x10^3/uL (4.0-11.0) 9.5 x10^3/uL (4.0-11.0) Red Blood Count 3.11 x10^6/uL (3.50-5.40) 2.01 x10^6/uL (3.50-5.40) Hemoglobin 9.4 g/dL (12.0-15.5) 6.2 g/dL (12.0-15.5) Hematocrit 26.9 % (36.0-47.0) 17.3 % (36.0-47.0) Mean Corpuscular Volume 87 fL (79-100) 86 fL (79-100) Mean Corpuscular Hemoglobin 30 pg (25-35) 31 pg (25-35) Mean Corpuscular Hemoglobin Concent 35 g/dL (31-37) 36 g/dL (31-37) Red Cell Distribution Width 14.7 % (11.5-14.5) 14.2 % (11.5-14.5) Platelet Count 43 x10^3/uL (140-400) 154 x10^3/uL (140-400) Neutrophils (%) (Auto) 81 % (31-73) Lymphocytes (%) (Auto) 12 % (24-48) Monocytes (%) (Auto) 7 % (0-9) Eosinophils (%) (Auto) 0 % (0-3) Basophils (%) (Auto) 0 % (0-3) Neutrophils # (Auto) 4.9 x10^3uL (1.8-7.7) Lymphocytes # (Auto) 0.7 x10^3/uL (1.0-4.8) Monocytes # (Auto) 0.4 x10^3/uL (0.0-1.1) Eosinophils # (Auto) 0.0 x10^3/uL (0.0-0.7) Basophils # (Auto) 0.0 x10^3/uL (0.0-0.2) Platelet Estimate Decreased (ADEQUATE) Prothrombin Time 19.2 SEC (11.7-14.0) Prothromb Time International Ratio 1.6 (0.8-1.1) Sodium Level 158 mmol/L (136-145) Potassium Level 3.3 mmol/L (3.5-5.1) Chloride Level 120 mmol/L (98-107) Carbon Dioxide Level 24 mmol/L (21-32) Anion Gap 14 (6-14) Blood Urea Nitrogen 13 mg/dL (7-20) Creatinine 0.6 mg/dL (0.6-1.0) Estimated GFR (Cockcroft-Gault) 98.8 BUN/Creatinine Ratio 22 (6-20) Glucose Level 192 mg/dL (70-99) Calcium Level 9.7 mg/dL (8.5-10.1) Total Bilirubin 1.1 mg/dL (0.2-1.0) Aspartate Amino Transf (AST/SGOT) 26 U/L (15-37) Alanine Aminotransferase (ALT/SGPT) 24 U/L (14-59) Alkaline Phosphatase 39 U/L (46-116) Total Protein 4.0 g/dL (6.4-8.2) Albumin 2.4 g/dL (3.4-5.0) Albumin/Globulin Ratio 1.5 (1.0-1.7) O2 Saturation 98 % (92-99) Arterial Blood pH 7.35 (7.35-7.45) Arterial Blood pH (Temp corrected) 7.38 Arterial Blood pCO2 at Patient Temp 42 mmHg (35-46) Arterial Blood pCO2 (Temp correct) 38 mmHg Arterial Blood pO2 at Patient Temp 145 mmHg (65-108) Arterial Blood pO2 (Temp corrected) 132 mmHg Arterial Blood HCO3 23 mmol/L (21-28) Arterial Blood Base Excess -3 mmol/L (-3-3) FiO2 50 Test 03/09/18 00:42 03/09/18 02:59 03/09/18 05:50 03/09/18 08:33 White Blood Count 10.2 x10^3/uL (4.0-11.0) 8.9 x10^3/uL (4.0-11.0) Red Blood Count 2.11 x10^6/uL (3.50-5.40) 4.50 x10^6/uL (3.50-5.40) Hemoglobin 6.5 g/dL (12.0-15.5) 13.6 g/dL (12.0-15.5) Hematocrit 18.2 % (36.0-47.0) 39.2 % (36.0-47.0) Mean Corpuscular Volume 86 fL (79-100) 87 fL (79-100) Mean Corpuscular Hemoglobin 31 pg (25-35) 30 pg (25-35) Mean Corpuscular Hemoglobin Concent 36 g/dL (31-37) 35 g/dL (31-37) Red Cell Distribution Width 14.5 % (11.5-14.5) 14.9 % (11.5-14.5) Platelet Count 160 x10^3/uL (140-400) 79 x10^3/uL (140-400) Neutrophils (%) (Auto) 76 % (31-73) 73 % (31-73) Lymphocytes (%) (Auto) 16 % (24-48) 19 % (24-48) Monocytes (%) (Auto) 8 % (0-9) 8 % (0-9) Eosinophils (%) (Auto) 0 % (0-3) 0 % (0-3) Basophils (%) (Auto) 0 % (0-3) 0 % (0-3) Neutrophils # (Auto) 7.8 x10^3uL (1.8-7.7) 6.5 x10^3uL (1.8-7.7) Lymphocytes # (Auto) 1.7 x10^3/uL (1.0-4.8) 1.7 x10^3/uL (1.0-4.8) Monocytes # (Auto) 0.8 x10^3/uL (0.0-1.1) 0.7 x10^3/uL (0.0-1.1) Eosinophils # (Auto) 0.0 x10^3/uL (0.0-0.7) 0.0 x10^3/uL (0.0-0.7) Basophils # (Auto) 0.0 x10^3/uL (0.0-0.2) 0.0 x10^3/uL (0.0-0.2) Prothrombin Time 19.2 SEC (11.7-14.0) Prothromb Time International Ratio 1.6 (0.8-1.1) Fibrinogen 130 mg/dL (200-440) Sodium Level 157 mmol/L (136-145) 153 mmol/L (136-145) Potassium Level 4.1 mmol/L (3.5-5.1) 3.5 mmol/L (3.5-5.1) Chloride Level 119 mmol/L (98-107) 118 mmol/L (98-107) Carbon Dioxide Level 23 mmol/L (21-32) 24 mmol/L (21-32) Anion Gap 15 (6-14) 11 (6-14) Blood Urea Nitrogen 17 mg/dL (7-20) 18 mg/dL (7-20) Creatinine 0.7 mg/dL (0.6-1.0) 0.7 mg/dL (0.6-1.0) Estimated GFR (Cockcroft-Gault) 82.7 82.7 Glucose Level 187 mg/dL (70-99) 190 mg/dL (70-99) 155 mg/dL (70-99) Calcium Level 9.0 mg/dL (8.5-10.1) 8.4 mg/dL (8.5-10.1) Bedside Hemoglobin (Calculated) 7.8 g/dL (12-15) Bedside Hematocrit 23 % (36-40) Bedside Arterial pH 7.34 (7.35-7.45) Arterial Blood pH (Temp corrected) 7.35 Bedside Arterial pCO2 38 mmHg (35-45) Arterial Blood pCO2 (Temp correct) 36 mmHg Bedside Arterial pO2 313 mmHg (75-100) Arterial Blood pO2 (Temp corrected) 308 mmHg Bedside Arterial HCO3 20 mmol/L (21-28) Bedside Arterial Total CO2 22 mmol/L (21-32) Arterial Bld O2 Saturation (Measur) 100 % (95-99) Bedside Arterial Blood Base Excess -5 mmol/L (0-3) Bedside FiO2 100.0 Bedside Sodium 153 mmol/L (135-145) Bedside Potassium 3.7 mmol/L (3.5-5.0) Bedside Ionized Calcium (Amilcar) 1.08 mmol/L (1.13-1.32) Phosphorus Level 3.7 mg/dL (2.6-4.7) Magnesium Level 1.2 mg/dL (1.8-2.4) O2 Saturation 97 % (92-99) Arterial Blood pH 7.42 (7.35-7.45) Arterial Blood pCO2 at Patient Temp 34 mmHg (35-46) Arterial Blood pO2 at Patient Temp 106 mmHg (65-108) Arterial Blood HCO3 22 mmol/L (21-28) Arterial Blood Base Excess -2 mmol/L (-3-3) FiO2 50% Laboratory Tests Test 03/08/18 12:10 03/08/18 14:53 03/08/18 16:35 03/08/18 17:01 White Blood Count 7.4 x10^3/uL (4.0-11.0) 15.0 x10^3/uL (4.0-11.0) Red Blood Count 2.10 x10^6/uL (3.50-5.40) 3.65 x10^6/uL (3.50-5.40) Hemoglobin 6.4 g/dL (12.0-15.5) 10.9 g/dL (12.0-15.5) Hematocrit 18.3 % (36.0-47.0) 31.6 % (36.0-47.0) Mean Corpuscular Volume 87 fL (79-100) 87 fL (79-100) Mean Corpuscular Hemoglobin 31 pg (25-35) 30 pg (25-35) Mean Corpuscular Hemoglobin Concent 35 g/dL (31-37) 35 g/dL (31-37) Red Cell Distribution Width 16.0 % (11.5-14.5) 15.4 % (11.5-14.5) Platelet Count 119 x10^3/uL (140-400) 102 x10^3/uL (140-400) Prothrombin Time 18.2 SEC (11.7-14.0) 16.8 SEC (11.7-14.0) Prothromb Time International Ratio 1.5 (0.8-1.1) 1.4 (0.8-1.1) Neutrophils (%) (Auto) 77 % (31-73) Lymphocytes (%) (Auto) 18 % (24-48) Monocytes (%) (Auto) 4 % (0-9) Eosinophils (%) (Auto) 0 % (0-3) Basophils (%) (Auto) 1 % (0-3) Neutrophils # (Auto) 11.5 x10^3uL (1.8-7.7) Lymphocytes # (Auto) 2.7 x10^3/uL (1.0-4.8) Monocytes # (Auto) 0.6 x10^3/uL (0.0-1.1) Eosinophils # (Auto) 0.0 x10^3/uL (0.0-0.7) Basophils # (Auto) 0.1 x10^3/uL (0.0-0.2) Activated Partial Thromboplast Time 38 SEC (24-38) Fibrinogen 207 mg/dL (200-440) Sodium Level 144 mmol/L (136-145) Potassium Level 4.0 mmol/L (3.5-5.1) Chloride Level 112 mmol/L (98-107) Carbon Dioxide Level 19 mmol/L (21-32) Anion Gap 13 (6-14) Blood Urea Nitrogen 16 mg/dL (7-20) Creatinine 0.7 mg/dL (0.6-1.0) Estimated GFR (Cockcroft-Gault) 82.7 Glucose Level 206 mg/dL (70-99) 207 mg/dL (70-99) 220 mg/dL (70-99) Calcium Level 7.1 mg/dL (8.5-10.1) Ionized Calcium 0.84 mmol/L (1.13-1.32) Bedside Hematocrit 15 % (36-40) 17 % (36-40) Arterial Blood pH (Temp corrected) 7.23 7.24 Arterial Blood pCO2 (Temp correct) 38 mmHg 44 mmHg Arterial Blood pO2 (Temp corrected) 327 mmHg 317 mmHg Bedside Venous pH 7.23 (7.32-7.42) Bedside Venous pCO2 38 mmHg (41-51) Bedside Venous pO2 327 mmHg (20-40) Bedside Venous HCO3 16 mmol/L (24-28) Bedside Venous Blood Total CO2 17 mmol/L (21-32) Bedside Venous Blood O2 Saturation 100 % Bedside Venous Blood Base Excess -12 mmol/L (0-3) POC Venous Hemoglobin (Calc) 5.1 g/dL (12-15) Bedside FiO2 100 100.0 Bedside Sodium 147 mmol/L (135-145) 151 mmol/L (135-145) Bedside Potassium 3.9 mmol/L (3.5-5.0) 3.2 mmol/L (3.5-5.0) Bedside Ionized Calcium (Amilcar) 0.85 mmol/L (1.13-1.32) 1.34 mmol/L (1.13-1.32) Bedside Hemoglobin (Calculated) 5.8 g/dL (12-15) Bedside Arterial pH 7.24 (7.35-7.45) Bedside Arterial pCO2 44 mmHg (35-45) Bedside Arterial pO2 317 mmHg (75-100) Bedside Arterial HCO3 19 mmol/L (21-28) Bedside Arterial Total CO2 20 mmol/L (21-32) Arterial Bld O2 Saturation (Measur) 100 % (95-99) Bedside Arterial Blood Base Excess -9 mmol/L (0-3) Test 03/08/18 18:57 03/08/18 19:36 03/08/18 19:40 03/08/18 20:00 Bedside Hemoglobin (Calculated) 6.5 g/dL (12-15) Bedside Hematocrit 19 % (36-40) Bedside Arterial pH 7.27 (7.35-7.45) Arterial Blood pH (Temp corrected) 7.28 7.38 Bedside Arterial pCO2 52 mmHg (35-45) Arterial Blood pCO2 (Temp correct) 49 mmHg 38 mmHg Bedside Arterial pO2 416 mmHg (75-100) Arterial Blood pO2 (Temp corrected) 411 mmHg 132 mmHg Bedside Arterial HCO3 24 mmol/L (21-28) Bedside Arterial Total CO2 25 mmol/L (21-32) Arterial Bld O2 Saturation (Measur) 100 % (95-99) Bedside Arterial Blood Base Excess -3 mmol/L (0-3) Bedside FiO2 100.0 Bedside Sodium 155 mmol/L (135-145) Bedside Potassium 3.1 mmol/L (3.5-5.0) Glucose Level 194 mg/dL (70-99) 192 mg/dL (70-99) Bedside Ionized Calcium (Amilcar) 1.17 mmol/L (1.13-1.32) Glucose (Fingerstick) 151 mg/dL (70-99) White Blood Count 6.0 x10^3/uL (4.0-11.0) Red Blood Count 3.11 x10^6/uL (3.50-5.40) Hemoglobin 9.4 g/dL (12.0-15.5) Hematocrit 26.9 % (36.0-47.0) Mean Corpuscular Volume 87 fL (79-100) Mean Corpuscular Hemoglobin 30 pg (25-35) Mean Corpuscular Hemoglobin Concent 35 g/dL (31-37) Red Cell Distribution Width 14.7 % (11.5-14.5) Platelet Count 43 x10^3/uL (140-400) Neutrophils (%) (Auto) 81 % (31-73) Lymphocytes (%) (Auto) 12 % (24-48) Monocytes (%) (Auto) 7 % (0-9) Eosinophils (%) (Auto) 0 % (0-3) Basophils (%) (Auto) 0 % (0-3) Neutrophils # (Auto) 4.9 x10^3uL (1.8-7.7) Lymphocytes # (Auto) 0.7 x10^3/uL (1.0-4.8) Monocytes # (Auto) 0.4 x10^3/uL (0.0-1.1) Eosinophils # (Auto) 0.0 x10^3/uL (0.0-0.7) Basophils # (Auto) 0.0 x10^3/uL (0.0-0.2) Platelet Estimate Decreased (ADEQUATE) Prothrombin Time 19.2 SEC (11.7-14.0) Prothromb Time International Ratio 1.6 (0.8-1.1) Sodium Level 158 mmol/L (136-145) Potassium Level 3.3 mmol/L (3.5-5.1) Chloride Level 120 mmol/L (98-107) Carbon Dioxide Level 24 mmol/L (21-32) Anion Gap 14 (6-14) Blood Urea Nitrogen 13 mg/dL (7-20) Creatinine 0.6 mg/dL (0.6-1.0) Estimated GFR (Cockcroft-Gault) 98.8 BUN/Creatinine Ratio 22 (6-20) Calcium Level 9.7 mg/dL (8.5-10.1) Total Bilirubin 1.1 mg/dL (0.2-1.0) Aspartate Amino Transf (AST/SGOT) 26 U/L (15-37) Alanine Aminotransferase (ALT/SGPT) 24 U/L (14-59) Alkaline Phosphatase 39 U/L (46-116) Total Protein 4.0 g/dL (6.4-8.2) Albumin 2.4 g/dL (3.4-5.0) Albumin/Globulin Ratio 1.5 (1.0-1.7) O2 Saturation 98 % (92-99) Arterial Blood pH 7.35 (7.35-7.45) Arterial Blood pCO2 at Patient Temp 42 mmHg (35-46) Arterial Blood pO2 at Patient Temp 145 mmHg (65-108) Arterial Blood HCO3 23 mmol/L (21-28) Arterial Blood Base Excess -3 mmol/L (-3-3) FiO2 50 Test 03/08/18 23:40 03/09/18 00:42 03/09/18 02:59 03/09/18 05:50 White Blood Count 9.5 x10^3/uL (4.0-11.0) 10.2 x10^3/uL (4.0-11.0) 8.9 x10^3/uL (4.0-11.0) Red Blood Count 2.01 x10^6/uL (3.50-5.40) 2.11 x10^6/uL (3.50-5.40) 4.50 x10^6/uL (3.50-5.40) Hemoglobin 6.2 g/dL (12.0-15.5) 6.5 g/dL (12.0-15.5) 13.6 g/dL (12.0-15.5) Hematocrit 17.3 % (36.0-47.0) 18.2 % (36.0-47.0) 39.2 % (36.0-47.0) Mean Corpuscular Volume 86 fL (79-100) 86 fL (79-100) 87 fL (79-100) Mean Corpuscular Hemoglobin 31 pg (25-35) 31 pg (25-35) 30 pg (25-35) Mean Corpuscular Hemoglobin Concent 36 g/dL (31-37) 36 g/dL (31-37) 35 g/dL (31-37) Red Cell Distribution Width 14.2 % (11.5-14.5) 14.5 % (11.5-14.5) 14.9 % (11.5-14.5) Platelet Count 154 x10^3/uL (140-400) 160 x10^3/uL (140-400) 79 x10^3/uL (140-400) Neutrophils (%) (Auto) 76 % (31-73) 73 % (31-73) Lymphocytes (%) (Auto) 16 % (24-48) 19 % (24-48) Monocytes (%) (Auto) 8 % (0-9) 8 % (0-9) Eosinophils (%) (Auto) 0 % (0-3) 0 % (0-3) Basophils (%) (Auto) 0 % (0-3) 0 % (0-3) Neutrophils # (Auto) 7.8 x10^3uL (1.8-7.7) 6.5 x10^3uL (1.8-7.7) Lymphocytes # (Auto) 1.7 x10^3/uL (1.0-4.8) 1.7 x10^3/uL (1.0-4.8) Monocytes # (Auto) 0.8 x10^3/uL (0.0-1.1) 0.7 x10^3/uL (0.0-1.1) Eosinophils # (Auto) 0.0 x10^3/uL (0.0-0.7) 0.0 x10^3/uL (0.0-0.7) Basophils # (Auto) 0.0 x10^3/uL (0.0-0.2) 0.0 x10^3/uL (0.0-0.2) Prothrombin Time 19.2 SEC (11.7-14.0) Prothromb Time International Ratio 1.6 (0.8-1.1) Fibrinogen 130 mg/dL (200-440) Sodium Level 157 mmol/L (136-145) 153 mmol/L (136-145) Potassium Level 4.1 mmol/L (3.5-5.1) 3.5 mmol/L (3.5-5.1) Chloride Level 119 mmol/L (98-107) 118 mmol/L (98-107) Carbon Dioxide Level 23 mmol/L (21-32) 24 mmol/L (21-32) Anion Gap 15 (6-14) 11 (6-14) Blood Urea Nitrogen 17 mg/dL (7-20) 18 mg/dL (7-20) Creatinine 0.7 mg/dL (0.6-1.0) 0.7 mg/dL (0.6-1.0) Estimated GFR (Cockcroft-Gault) 82.7 82.7 Glucose Level 187 mg/dL (70-99) 190 mg/dL (70-99) 155 mg/dL (70-99) Calcium Level 9.0 mg/dL (8.5-10.1) 8.4 mg/dL (8.5-10.1) Bedside Hemoglobin (Calculated) 7.8 g/dL (12-15) Bedside Hematocrit 23 % (36-40) Bedside Arterial pH 7.34 (7.35-7.45) Arterial Blood pH (Temp corrected) 7.35 Bedside Arterial pCO2 38 mmHg (35-45) Arterial Blood pCO2 (Temp correct) 36 mmHg Bedside Arterial pO2 313 mmHg (75-100) Arterial Blood pO2 (Temp corrected) 308 mmHg Bedside Arterial HCO3 20 mmol/L (21-28) Bedside Arterial Total CO2 22 mmol/L (21-32) Arterial Bld O2 Saturation (Measur) 100 % (95-99) Bedside Arterial Blood Base Excess -5 mmol/L (0-3) Bedside FiO2 100.0 Bedside Sodium 153 mmol/L (135-145) Bedside Potassium 3.7 mmol/L (3.5-5.0) Bedside Ionized Calcium (Amilcar) 1.08 mmol/L (1.13-1.32) Phosphorus Level 3.7 mg/dL (2.6-4.7) Magnesium Level 1.2 mg/dL (1.8-2.4) Test 03/09/18 08:33 O2 Saturation 97 % (92-99) Arterial Blood pH 7.42 (7.35-7.45) Arterial Blood pCO2 at Patient Temp 34 mmHg (35-46) Arterial Blood pO2 at Patient Temp 106 mmHg (65-108) Arterial Blood HCO3 22 mmol/L (21-28) Arterial Blood Base Excess -2 mmol/L (-3-3) FiO2 50% Problem List Problems Medical Problems: (1) Hypotension Status: Acute Assessment/Plan s/p splenectomy, return to OR early AM reviewed with Dr Alcala consult to Renal, heme CAMILA VILLELA MD 03/09/18 1210: SURGICAL PROGRESS NOTE Assessment/Plan 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 Hb improved, vitals stable on vent; some oozing around drain site, GORGE output seems slower this am. Continue critical care management, attention to coagulation, temperature, electrolytes etc, above consults to assist, appreciate expertise in this complicated patient. MARGARITO PECK APRN Mar 09, 2018 09:02 CAMILA VILLELA MD Mar 09, 2018 12:10
[2018-03-09] MEDS: OCTREOTIDE 500 MCG in IV NORMAL SALINE 100ML 100 ML IV PRN (10:38)
--- NOTE | 2018-03-09 10:40 | NUR ---
Consult called to Dr. Fabiola Cardoza office
[2018-03-09 10:51] LABS: BASO % 0 % (0-3); EOS % 0 % (0-3); HEMATOCRIT 37.5 % (36.0-47.0); HEMOGLOBIN 13.4 g/dL (12.0-15.5); LYMPH # 2.1 x10^3/uL (1.0-4.8); LYMPH % 20 % (24-48); MEAN CORPUSCULAR HEMOGLOBIN 31 pg (25-35); MEAN CORPUSCULAR HGB CONC 36 g/dL (31-37); MEAN CORPUSCULAR VOLUME 87 fL (79-100); MONO # 1.1 x10^3/uL (0.0-1.1); MONO % 10 % (0-9); NEUT # 7.5 x10^3uL (1.8-7.7); NEUT % 70 % (31-73); PLATELET COUNT 79 x10^3/uL (140-400); RED BLOOD COUNT 4.33 x10^6/uL (3.50-5.40); RED CELL DISTRIBUTION WIDTH 15.1 % (11.5-14.5); WHITE BLOOD COUNT 10.8 x10^3/uL (4.0-11.0)
[2018-03-09] MEDS ORDERED: POTASSIUM CL 20MEQ IN D5W 1,000 ML IV SCH (11:00)
[2018-03-09 11:11] LABS: PROTHROMBIN TIME PATIENT 13.8 SEC (11.7-14.0)
--- NOTE | 2018-03-09 11:30 | NUR ---
Dr. Matthew here to see pt and shown gorge output. Instructed to keep emptying GORGE frequently and that the tissue on the inside will ooze and the fluid will be bloody and is expected.
--- NOTE | 2018-03-09 11:30 | NUR ---
Consult called to Dr. Meeks's office
--- NOTE | 2018-03-09 11:45 | PDOC ---
G I PROGRESS NOTE Subjective Sedated on ventilator. 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 Physical Exam Lungs clear anteriorly. RRR Abdomen soft, Watery red output from TERE. Nil blood in NG. No bowel sounds. Review of Relevant I have reviewed the following items scottie (where applicable) has been applied. Labs Laboratory Tests Test 03/07/18 18:40 03/07/18 19:11 03/07/18 21:08 03/07/18 22:30 Prothrombin Time 14.3 SEC (11.7-14.0) Prothromb Time International Ratio 1.1 (0.8-1.1) Sodium Level 143 mmol/L (136-145) Potassium Level 3.4 mmol/L (3.5-5.1) Chloride Level 109 mmol/L (98-107) Carbon Dioxide Level 22 mmol/L (21-32) Anion Gap 12 (6-14) Blood Urea Nitrogen 9 mg/dL (7-20) Creatinine 0.8 mg/dL (0.6-1.0) Estimated GFR (Cockcroft-Gault) 70.9 BUN/Creatinine Ratio 11 (6-20) Glucose Level 155 mg/dL (70-99) Calcium Level 8.4 mg/dL (8.5-10.1) Total Bilirubin 0.4 mg/dL (0.2-1.0) Aspartate Amino Transf (AST/SGOT) 73 U/L (15-37) Alanine Aminotransferase (ALT/SGPT) 47 U/L (14-59) Alkaline Phosphatase 280 U/L (46-116) Troponin I Quantitative < 0.017 ng/mL (0.000-0.055) 0.022 ng/mL (0.000-0.055) Total Protein 9.3 g/dL (6.4-8.2) Albumin 2.0 g/dL (3.4-5.0) Albumin/Globulin Ratio 0.3 (1.0-1.7) White Blood Count 8.2 x10^3/uL (4.0-11.0) Red Blood Count 2.16 x10^6/uL (3.50-5.40) Hemoglobin 6.7 g/dL (12.0-15.5) Hematocrit 19.4 % (36.0-47.0) Mean Corpuscular Volume 90 fL (79-100) Mean Corpuscular Hemoglobin 31 pg (25-35) Mean Corpuscular Hemoglobin Concent 35 g/dL (31-37) Red Cell Distribution Width 16.8 % (11.5-14.5) Platelet Count 151 x10^3/uL (140-400) Neutrophils (%) (Auto) 58 % (31-73) Lymphocytes (%) (Auto) 32 % (24-48) Monocytes (%) (Auto) 8 % (0-9) Eosinophils (%) (Auto) 2 % (0-3) Basophils (%) (Auto) 0 % (0-3) Neutrophils # (Auto) 4.7 x10^3uL (1.8-7.7) Lymphocytes # (Auto) 2.6 x10^3/uL (1.0-4.8) Monocytes # (Auto) 0.7 x10^3/uL (0.0-1.1) Eosinophils # (Auto) 0.1 x10^3/uL (0.0-0.7) Basophils # (Auto) 0.0 x10^3/uL (0.0-0.2) Nasal Screen MRSA (PCR) Positive (Negative) Test 03/07/18 22:40 03/08/18 04:10 03/08/18 05:00 03/08/18 12:10 White Blood Count 6.6 x10^3/uL (4.0-11.0) 6.2 x10^3/uL (4.0-11.0) 7.4 x10^3/uL (4.0-11.0) Red Blood Count 3.02 x10^6/uL (3.50-5.40) 2.48 x10^6/uL (3.50-5.40) 2.10 x10^6/uL (3.50-5.40) Hemoglobin 9.3 g/dL (12.0-15.5) 7.8 g/dL (12.0-15.5) 6.4 g/dL (12.0-15.5) Hematocrit 26.6 % (36.0-47.0) 21.6 % (36.0-47.0) 18.3 % (36.0-47.0) Mean Corpuscular Volume 88 fL (79-100) 87 fL (79-100) 87 fL (79-100) Mean Corpuscular Hemoglobin 31 pg (25-35) 32 pg (25-35) 31 pg (25-35) Mean Corpuscular Hemoglobin Concent 35 g/dL (31-37) 36 g/dL (31-37) 35 g/dL (31-37) Red Cell Distribution Width 15.6 % (11.5-14.5) 15.6 % (11.5-14.5) 16.0 % (11.5-14.5) Platelet Count 121 x10^3/uL (140-400) 111 x10^3/uL (140-400) 119 x10^3/uL (140-400) Sodium Level 145 mmol/L (136-145) Potassium Level 4.1 mmol/L (3.5-5.1) Chloride Level 116 mmol/L (98-107) Carbon Dioxide Level 20 mmol/L (21-32) Anion Gap 9 (6-14) Blood Urea Nitrogen 11 mg/dL (7-20) Creatinine 0.6 mg/dL (0.6-1.0) Estimated GFR (Cockcroft-Gault) 98.8 BUN/Creatinine Ratio 18 (6-20) Glucose Level 116 mg/dL (70-99) Calcium Level 6.8 mg/dL (8.5-10.1) Total Bilirubin 0.6 mg/dL (0.2-1.0) Aspartate Amino Transf (AST/SGOT) 50 U/L (15-37) Alanine Aminotransferase (ALT/SGPT) 32 U/L (14-59) Alkaline Phosphatase 166 U/L (46-116) Total Protein 6.1 g/dL (6.4-8.2) Albumin 1.3 g/dL (3.4-5.0) Albumin/Globulin Ratio 0.3 (1.0-1.7) Neutrophils (%) (Auto) 59 % (31-73) Lymphocytes (%) (Auto) 31 % (24-48) Monocytes (%) (Auto) 9 % (0-9) Eosinophils (%) (Auto) 0 % (0-3) Basophils (%) (Auto) 0 % (0-3) Neutrophils # (Auto) 3.7 x10^3uL (1.8-7.7) Lymphocytes # (Auto) 1.9 x10^3/uL (1.0-4.8) Monocytes # (Auto) 0.6 x10^3/uL (0.0-1.1) Eosinophils # (Auto) 0.0 x10^3/uL (0.0-0.7) Basophils # (Auto) 0.0 x10^3/uL (0.0-0.2) Prothrombin Time 17.4 SEC (11.7-14.0) 18.2 SEC (11.7-14.0) Prothromb Time International Ratio 1.5 (0.8-1.1) 1.5 (0.8-1.1) Test 03/08/18 14:53 03/08/18 16:35 03/08/18 17:01 03/08/18 18:57 White Blood Count 15.0 x10^3/uL (4.0-11.0) Red Blood Count 3.65 x10^6/uL (3.50-5.40) Hemoglobin 10.9 g/dL (12.0-15.5) Hematocrit 31.6 % (36.0-47.0) Mean Corpuscular Volume 87 fL (79-100) Mean Corpuscular Hemoglobin 30 pg (25-35) Mean Corpuscular Hemoglobin Concent 35 g/dL (31-37) Red Cell Distribution Width 15.4 % (11.5-14.5) Platelet Count 102 x10^3/uL (140-400) Neutrophils (%) (Auto) 77 % (31-73) Lymphocytes (%) (Auto) 18 % (24-48) Monocytes (%) (Auto) 4 % (0-9) Eosinophils (%) (Auto) 0 % (0-3) Basophils (%) (Auto) 1 % (0-3) Neutrophils # (Auto) 11.5 x10^3uL (1.8-7.7) Lymphocytes # (Auto) 2.7 x10^3/uL (1.0-4.8) Monocytes # (Auto) 0.6 x10^3/uL (0.0-1.1) Eosinophils # (Auto) 0.0 x10^3/uL (0.0-0.7) Basophils # (Auto) 0.1 x10^3/uL (0.0-0.2) Prothrombin Time 16.8 SEC (11.7-14.0) Prothromb Time International Ratio 1.4 (0.8-1.1) Activated Partial Thromboplast Time 38 SEC (24-38) Fibrinogen 207 mg/dL (200-440) Sodium Level 144 mmol/L (136-145) Potassium Level 4.0 mmol/L (3.5-5.1) Chloride Level 112 mmol/L (98-107) Carbon Dioxide Level 19 mmol/L (21-32) Anion Gap 13 (6-14) Blood Urea Nitrogen 16 mg/dL (7-20) Creatinine 0.7 mg/dL (0.6-1.0) Estimated GFR (Cockcroft-Gault) 82.7 Glucose Level 206 mg/dL (70-99) 207 mg/dL (70-99) 220 mg/dL (70-99) 194 mg/dL (70-99) Calcium Level 7.1 mg/dL (8.5-10.1) Ionized Calcium 0.84 mmol/L (1.13-1.32) Bedside Hematocrit 15 % (36-40) 17 % (36-40) 19 % (36-40) Arterial Blood pH (Temp corrected) 7.23 7.24 7.28 Arterial Blood pCO2 (Temp correct) 38 mmHg 44 mmHg 49 mmHg Arterial Blood pO2 (Temp corrected) 327 mmHg 317 mmHg 411 mmHg Bedside Venous pH 7.23 (7.32-7.42) Bedside Venous pCO2 38 mmHg (41-51) Bedside Venous pO2 327 mmHg (20-40) Bedside Venous HCO3 16 mmol/L (24-28) Bedside Venous Blood Total CO2 17 mmol/L (21-32) Bedside Venous Blood O2 Saturation 100 % Bedside Venous Blood Base Excess -12 mmol/L (0-3) POC Venous Hemoglobin (Calc) 5.1 g/dL (12-15) Bedside FiO2 100 100.0 100.0 Bedside Sodium 147 mmol/L (135-145) 151 mmol/L (135-145) 155 mmol/L (135-145) Bedside Potassium 3.9 mmol/L (3.5-5.0) 3.2 mmol/L (3.5-5.0) 3.1 mmol/L (3.5-5.0) Bedside Ionized Calcium (Amilcar) 0.85 mmol/L (1.13-1.32) 1.34 mmol/L (1.13-1.32) 1.17 mmol/L (1.13-1.32) Bedside Hemoglobin (Calculated) 5.8 g/dL (12-15) 6.5 g/dL (12-15) Bedside Arterial pH 7.24 (7.35-7.45) 7.27 (7.35-7.45) Bedside Arterial pCO2 44 mmHg (35-45) 52 mmHg (35-45) Bedside Arterial pO2 317 mmHg (75-100) 416 mmHg (75-100) Bedside Arterial HCO3 19 mmol/L (21-28) 24 mmol/L (21-28) Bedside Arterial Total CO2 20 mmol/L (21-32) 25 mmol/L (21-32) Arterial Bld O2 Saturation (Measur) 100 % (95-99) 100 % (95-99) Bedside Arterial Blood Base Excess -9 mmol/L (0-3) -3 mmol/L (0-3) Test 03/08/18 19:36 03/08/18 19:40 03/08/18 20:00 03/08/18 23:40 Glucose (Fingerstick) 151 mg/dL (70-99) White Blood Count 6.0 x10^3/uL (4.0-11.0) 9.5 x10^3/uL (4.0-11.0) Red Blood Count 3.11 x10^6/uL (3.50-5.40) 2.01 x10^6/uL (3.50-5.40) Hemoglobin 9.4 g/dL (12.0-15.5) 6.2 g/dL (12.0-15.5) Hematocrit 26.9 % (36.0-47.0) 17.3 % (36.0-47.0) Mean Corpuscular Volume 87 fL (79-100) 86 fL (79-100) Mean Corpuscular Hemoglobin 30 pg (25-35) 31 pg (25-35) Mean Corpuscular Hemoglobin Concent 35 g/dL (31-37) 36 g/dL (31-37) Red Cell Distribution Width 14.7 % (11.5-14.5) 14.2 % (11.5-14.5) Platelet Count 43 x10^3/uL (140-400) 154 x10^3/uL (140-400) Neutrophils (%) (Auto) 81 % (31-73) Lymphocytes (%) (Auto) 12 % (24-48) Monocytes (%) (Auto) 7 % (0-9) Eosinophils (%) (Auto) 0 % (0-3) Basophils (%) (Auto) 0 % (0-3) Neutrophils # (Auto) 4.9 x10^3uL (1.8-7.7) Lymphocytes # (Auto) 0.7 x10^3/uL (1.0-4.8) Monocytes # (Auto) 0.4 x10^3/uL (0.0-1.1) Eosinophils # (Auto) 0.0 x10^3/uL (0.0-0.7) Basophils # (Auto) 0.0 x10^3/uL (0.0-0.2) Platelet Estimate Decreased (ADEQUATE) Prothrombin Time 19.2 SEC (11.7-14.0) Prothromb Time International Ratio 1.6 (0.8-1.1) Sodium Level 158 mmol/L (136-145) Potassium Level 3.3 mmol/L (3.5-5.1) Chloride Level 120 mmol/L (98-107) Carbon Dioxide Level 24 mmol/L (21-32) Anion Gap 14 (6-14) Blood Urea Nitrogen 13 mg/dL (7-20) Creatinine 0.6 mg/dL (0.6-1.0) Estimated GFR (Cockcroft-Gault) 98.8 BUN/Creatinine Ratio 22 (6-20) Glucose Level 192 mg/dL (70-99) Calcium Level 9.7 mg/dL (8.5-10.1) Total Bilirubin 1.1 mg/dL (0.2-1.0) Aspartate Amino Transf (AST/SGOT) 26 U/L (15-37) Alanine Aminotransferase (ALT/SGPT) 24 U/L (14-59) Alkaline Phosphatase 39 U/L (46-116) Total Protein 4.0 g/dL (6.4-8.2) Albumin 2.4 g/dL (3.4-5.0) Albumin/Globulin Ratio 1.5 (1.0-1.7) O2 Saturation 98 % (92-99) Arterial Blood pH 7.35 (7.35-7.45) Arterial Blood pH (Temp corrected) 7.38 Arterial Blood pCO2 at Patient Temp 42 mmHg (35-46) Arterial Blood pCO2 (Temp correct) 38 mmHg Arterial Blood pO2 at Patient Temp 145 mmHg (65-108) Arterial Blood pO2 (Temp corrected) 132 mmHg Arterial Blood HCO3 23 mmol/L (21-28) Arterial Blood Base Excess -3 mmol/L (-3-3) FiO2 50 Test 03/09/18 00:42 03/09/18 02:59 03/09/18 05:50 03/09/18 08:33 White Blood Count 10.2 x10^3/uL (4.0-11.0) 8.9 x10^3/uL (4.0-11.0) Red Blood Count 2.11 x10^6/uL (3.50-5.40) 4.50 x10^6/uL (3.50-5.40) Hemoglobin 6.5 g/dL (12.0-15.5) 13.6 g/dL (12.0-15.5) Hematocrit 18.2 % (36.0-47.0) 39.2 % (36.0-47.0) Mean Corpuscular Volume 86 fL (79-100) 87 fL (79-100) Mean Corpuscular Hemoglobin 31 pg (25-35) 30 pg (25-35) Mean Corpuscular Hemoglobin Concent 36 g/dL (31-37) 35 g/dL (31-37) Red Cell Distribution Width 14.5 % (11.5-14.5) 14.9 % (11.5-14.5) Platelet Count 160 x10^3/uL (140-400) 79 x10^3/uL (140-400) Neutrophils (%) (Auto) 76 % (31-73) 73 % (31-73) Lymphocytes (%) (Auto) 16 % (24-48) 19 % (24-48) Monocytes (%) (Auto) 8 % (0-9) 8 % (0-9) Eosinophils (%) (Auto) 0 % (0-3) 0 % (0-3) Basophils (%) (Auto) 0 % (0-3) 0 % (0-3) Neutrophils # (Auto) 7.8 x10^3uL (1.8-7.7) 6.5 x10^3uL (1.8-7.7) Lymphocytes # (Auto) 1.7 x10^3/uL (1.0-4.8) 1.7 x10^3/uL (1.0-4.8) Monocytes # (Auto) 0.8 x10^3/uL (0.0-1.1) 0.7 x10^3/uL (0.0-1.1) Eosinophils # (Auto) 0.0 x10^3/uL (0.0-0.7) 0.0 x10^3/uL (0.0-0.7) Basophils # (Auto) 0.0 x10^3/uL (0.0-0.2) 0.0 x10^3/uL (0.0-0.2) Prothrombin Time 19.2 SEC (11.7-14.0) Prothromb Time International Ratio 1.6 (0.8-1.1) Fibrinogen 130 mg/dL (200-440) Sodium Level 157 mmol/L (136-145) 153 mmol/L (136-145) Potassium Level 4.1 mmol/L (3.5-5.1) 3.5 mmol/L (3.5-5.1) Chloride Level 119 mmol/L (98-107) 118 mmol/L (98-107) Carbon Dioxide Level 23 mmol/L (21-32) 24 mmol/L (21-32) Anion Gap 15 (6-14) 11 (6-14) Blood Urea Nitrogen 17 mg/dL (7-20) 18 mg/dL (7-20) Creatinine 0.7 mg/dL (0.6-1.0) 0.7 mg/dL (0.6-1.0) Estimated GFR (Cockcroft-Gault) 82.7 82.7 Glucose Level 187 mg/dL (70-99) 190 mg/dL (70-99) 155 mg/dL (70-99) Calcium Level 9.0 mg/dL (8.5-10.1) 8.4 mg/dL (8.5-10.1) Bedside Hemoglobin (Calculated) 7.8 g/dL (12-15) Bedside Hematocrit 23 % (36-40) Bedside Arterial pH 7.34 (7.35-7.45) Arterial Blood pH (Temp corrected) 7.35 Bedside Arterial pCO2 38 mmHg (35-45) Arterial Blood pCO2 (Temp correct) 36 mmHg Bedside Arterial pO2 313 mmHg (75-100) Arterial Blood pO2 (Temp corrected) 308 mmHg Bedside Arterial HCO3 20 mmol/L (21-28) Bedside Arterial Total CO2 22 mmol/L (21-32) Arterial Bld O2 Saturation (Measur) 100 % (95-99) Bedside Arterial Blood Base Excess -5 mmol/L (0-3) Bedside FiO2 100.0 Bedside Sodium 153 mmol/L (135-145) Bedside Potassium 3.7 mmol/L (3.5-5.0) Bedside Ionized Calcium (Amilcar) 1.08 mmol/L (1.13-1.32) Phosphorus Level 3.7 mg/dL (2.6-4.7) Magnesium Level 1.2 mg/dL (1.8-2.4) O2 Saturation 97 % (92-99) Arterial Blood pH 7.42 (7.35-7.45) Arterial Blood pCO2 at Patient Temp 34 mmHg (35-46) Arterial Blood pO2 at Patient Temp 106 mmHg (65-108) Arterial Blood HCO3 22 mmol/L (21-28) Arterial Blood Base Excess -2 mmol/L (-3-3) FiO2 50% Test 03/09/18 10:40 White Blood Count 10.8 x10^3/uL (4.0-11.0) Red Blood Count 4.33 x10^6/uL (3.50-5.40) Hemoglobin 13.4 g/dL (12.0-15.5) Hematocrit 37.5 % (36.0-47.0) Mean Corpuscular Volume 87 fL (79-100) Mean Corpuscular Hemoglobin 31 pg (25-35) Mean Corpuscular Hemoglobin Concent 36 g/dL (31-37) Red Cell Distribution Width 15.1 % (11.5-14.5) Platelet Count 79 x10^3/uL (140-400) Neutrophils (%) (Auto) 70 % (31-73) Lymphocytes (%) (Auto) 20 % (24-48) Monocytes (%) (Auto) 10 % (0-9) Eosinophils (%) (Auto) 0 % (0-3) Basophils (%) (Auto) 0 % (0-3) Neutrophils # (Auto) 7.5 x10^3uL (1.8-7.7) Lymphocytes # (Auto) 2.1 x10^3/uL (1.0-4.8) Monocytes # (Auto) 1.1 x10^3/uL (0.0-1.1) Eosinophils # (Auto) 0.0 x10^3/uL (0.0-0.7) Basophils # (Auto) 0.0 x10^3/uL (0.0-0.2) Prothrombin Time 13.8 SEC (11.7-14.0) Prothromb Time International Ratio 1.1 (0.8-1.1) Fibrinogen 217 mg/dL (200-440) Laboratory Tests Test 03/08/18 12:10 03/08/18 14:53 03/08/18 16:35 03/08/18 17:01 White Blood Count 7.4 x10^3/uL (4.0-11.0) 15.0 x10^3/uL (4.0-11.0) Red Blood Count 2.10 x10^6/uL (3.50-5.40) 3.65 x10^6/uL (3.50-5.40) Hemoglobin 6.4 g/dL (12.0-15.5) 10.9 g/dL (12.0-15.5) Hematocrit 18.3 % (36.0-47.0) 31.6 % (36.0-47.0) Mean Corpuscular Volume 87 fL (79-100) 87 fL (79-100) Mean Corpuscular Hemoglobin 31 pg (25-35) 30 pg (25-35) Mean Corpuscular Hemoglobin Concent 35 g/dL (31-37) 35 g/dL (31-37) Red Cell Distribution Width 16.0 % (11.5-14.5) 15.4 % (11.5-14.5) Platelet Count 119 x10^3/uL (140-400) 102 x10^3/uL (140-400) Prothrombin Time 18.2 SEC (11.7-14.0) 16.8 SEC (11.7-14.0) Prothromb Time International Ratio 1.5 (0.8-1.1) 1.4 (0.8-1.1) Neutrophils (%) (Auto) 77 % (31-73) Lymphocytes (%) (Auto) 18 % (24-48) Monocytes (%) (Auto) 4 % (0-9) Eosinophils (%) (Auto) 0 % (0-3) Basophils (%) (Auto) 1 % (0-3) Neutrophils # (Auto) 11.5 x10^3uL (1.8-7.7) Lymphocytes # (Auto) 2.7 x10^3/uL (1.0-4.8) Monocytes # (Auto) 0.6 x10^3/uL (0.0-1.1) Eosinophils # (Auto) 0.0 x10^3/uL (0.0-0.7) Basophils # (Auto) 0.1 x10^3/uL (0.0-0.2) Activated Partial Thromboplast Time 38 SEC (24-38) Fibrinogen 207 mg/dL (200-440) Sodium Level 144 mmol/L (136-145) Potassium Level 4.0 mmol/L (3.5-5.1) Chloride Level 112 mmol/L (98-107) Carbon Dioxide Level 19 mmol/L (21-32) Anion Gap 13 (6-14) Blood Urea Nitrogen 16 mg/dL (7-20) Creatinine 0.7 mg/dL (0.6-1.0) Estimated GFR (Cockcroft-Gault) 82.7 Glucose Level 206 mg/dL (70-99) 207 mg/dL (70-99) 220 mg/dL (70-99) Calcium Level 7.1 mg/dL (8.5-10.1) Ionized Calcium 0.84 mmol/L (1.13-1.32) Bedside Hematocrit 15 % (36-40) 17 % (36-40) Arterial Blood pH (Temp corrected) 7.23 7.24 Arterial Blood pCO2 (Temp correct) 38 mmHg 44 mmHg Arterial Blood pO2 (Temp corrected) 327 mmHg 317 mmHg Bedside Venous pH 7.23 (7.32-7.42) Bedside Venous pCO2 38 mmHg (41-51) Bedside Venous pO2 327 mmHg (20-40) Bedside Venous HCO3 16 mmol/L (24-28) Bedside Venous Blood Total CO2 17 mmol/L (21-32) Bedside Venous Blood O2 Saturation 100 % Bedside Venous Blood Base Excess -12 mmol/L (0-3) POC Venous Hemoglobin (Calc) 5.1 g/dL (12-15) Bedside FiO2 100 100.0 Bedside Sodium 147 mmol/L (135-145) 151 mmol/L (135-145) Bedside Potassium 3.9 mmol/L (3.5-5.0) 3.2 mmol/L (3.5-5.0) Bedside Ionized Calcium (Amilcar) 0.85 mmol/L (1.13-1.32) 1.34 mmol/L (1.13-1.32) Bedside Hemoglobin (Calculated) 5.8 g/dL (12-15) Bedside Arterial pH 7.24 (7.35-7.45) Bedside Arterial pCO2 44 mmHg (35-45) Bedside Arterial pO2 317 mmHg (75-100) Bedside Arterial HCO3 19 mmol/L (21-28) Bedside Arterial Total CO2 20 mmol/L (21-32) Arterial Bld O2 Saturation (Measur) 100 % (95-99) Bedside Arterial Blood Base Excess -9 mmol/L (0-3) Test 03/08/18 18:57 03/08/18 19:36 03/08/18 19:40 03/08/18 20:00 Bedside Hemoglobin (Calculated) 6.5 g/dL (12-15) Bedside Hematocrit 19 % (36-40) Bedside Arterial pH 7.27 (7.35-7.45) Arterial Blood pH (Temp corrected) 7.28 7.38 Bedside Arterial pCO2 52 mmHg (35-45) Arterial Blood pCO2 (Temp correct) 49 mmHg 38 mmHg Bedside Arterial pO2 416 mmHg (75-100) Arterial Blood pO2 (Temp corrected) 411 mmHg 132 mmHg Bedside Arterial HCO3 24 mmol/L (21-28) Bedside Arterial Total CO2 25 mmol/L (21-32) Arterial Bld O2 Saturation (Measur) 100 % (95-99) Bedside Arterial Blood Base Excess -3 mmol/L (0-3) Bedside FiO2 100.0 Bedside Sodium 155 mmol/L (135-145) Bedside Potassium 3.1 mmol/L (3.5-5.0) Glucose Level 194 mg/dL (70-99) 192 mg/dL (70-99) Bedside Ionized Calcium (Amilcar) 1.17 mmol/L (1.13-1.32) Glucose (Fingerstick) 151 mg/dL (70-99) White Blood Count 6.0 x10^3/uL (4.0-11.0) Red Blood Count 3.11 x10^6/uL (3.50-5.40) Hemoglobin 9.4 g/dL (12.0-15.5) Hematocrit 26.9 % (36.0-47.0) Mean Corpuscular Volume 87 fL (79-100) Mean Corpuscular Hemoglobin 30 pg (25-35) Mean Corpuscular Hemoglobin Concent 35 g/dL (31-37) Red Cell Distribution Width 14.7 % (11.5-14.5) Platelet Count 43 x10^3/uL (140-400) Neutrophils (%) (Auto) 81 % (31-73) Lymphocytes (%) (Auto) 12 % (24-48) Monocytes (%) (Auto) 7 % (0-9) Eosinophils (%) (Auto) 0 % (0-3) Basophils (%) (Auto) 0 % (0-3) Neutrophils # (Auto) 4.9 x10^3uL (1.8-7.7) Lymphocytes # (Auto) 0.7 x10^3/uL (1.0-4.8) Monocytes # (Auto) 0.4 x10^3/uL (0.0-1.1) Eosinophils # (Auto) 0.0 x10^3/uL (0.0-0.7) Basophils # (Auto) 0.0 x10^3/uL (0.0-0.2) Platelet Estimate Decreased (ADEQUATE) Prothrombin Time 19.2 SEC (11.7-14.0) Prothromb Time International Ratio 1.6 (0.8-1.1) Sodium Level 158 mmol/L (136-145) Potassium Level 3.3 mmol/L (3.5-5.1) Chloride Level 120 mmol/L (98-107) Carbon Dioxide Level 24 mmol/L (21-32) Anion Gap 14 (6-14) Blood Urea Nitrogen 13 mg/dL (7-20) Creatinine 0.6 mg/dL (0.6-1.0) Estimated GFR (Cockcroft-Gault) 98.8 BUN/Creatinine Ratio 22 (6-20) Calcium Level 9.7 mg/dL (8.5-10.1) Total Bilirubin 1.1 mg/dL (0.2-1.0) Aspartate Amino Transf (AST/SGOT) 26 U/L (15-37) Alanine Aminotransferase (ALT/SGPT) 24 U/L (14-59) Alkaline Phosphatase 39 U/L (46-116) Total Protein 4.0 g/dL (6.4-8.2) Albumin 2.4 g/dL (3.4-5.0) Albumin/Globulin Ratio 1.5 (1.0-1.7) O2 Saturation 98 % (92-99) Arterial Blood pH 7.35 (7.35-7.45) Arterial Blood pCO2 at Patient Temp 42 mmHg (35-46) Arterial Blood pO2 at Patient Temp 145 mmHg (65-108) Arterial Blood HCO3 23 mmol/L (21-28) Arterial Blood Base Excess -3 mmol/L (-3-3) FiO2 50 Test 03/08/18 23:40 03/09/18 00:42 03/09/18 02:59 03/09/18 05:50 White Blood Count 9.5 x10^3/uL (4.0-11.0) 10.2 x10^3/uL (4.0-11.0) 8.9 x10^3/uL (4.0-11.0) Red Blood Count 2.01 x10^6/uL (3.50-5.40) 2.11 x10^6/uL (3.50-5.40) 4.50 x10^6/uL (3.50-5.40) Hemoglobin 6.2 g/dL (12.0-15.5) 6.5 g/dL (12.0-15.5) 13.6 g/dL (12.0-15.5) Hematocrit 17.3 % (36.0-47.0) 18.2 % (36.0-47.0) 39.2 % (36.0-47.0) Mean Corpuscular Volume 86 fL (79-100) 86 fL (79-100) 87 fL (79-100) Mean Corpuscular Hemoglobin 31 pg (25-35) 31 pg (25-35) 30 pg (25-35) Mean Corpuscular Hemoglobin Concent 36 g/dL (31-37) 36 g/dL (31-37) 35 g/dL (31-37) Red Cell Distribution Width 14.2 % (11.5-14.5) 14.5 % (11.5-14.5) 14.9 % (11.5-14.5) Platelet Count 154 x10^3/uL (140-400) 160 x10^3/uL (140-400) 79 x10^3/uL (140-400) Neutrophils (%) (Auto) 76 % (31-73) 73 % (31-73) Lymphocytes (%) (Auto) 16 % (24-48) 19 % (24-48) Monocytes (%) (Auto) 8 % (0-9) 8 % (0-9) Eosinophils (%) (Auto) 0 % (0-3) 0 % (0-3) Basophils (%) (Auto) 0 % (0-3) 0 % (0-3) Neutrophils # (Auto) 7.8 x10^3uL (1.8-7.7) 6.5 x10^3uL (1.8-7.7) Lymphocytes # (Auto) 1.7 x10^3/uL (1.0-4.8) 1.7 x10^3/uL (1.0-4.8) Monocytes # (Auto) 0.8 x10^3/uL (0.0-1.1) 0.7 x10^3/uL (0.0-1.1) Eosinophils # (Auto) 0.0 x10^3/uL (0.0-0.7) 0.0 x10^3/uL (0.0-0.7) Basophils # (Auto) 0.0 x10^3/uL (0.0-0.2) 0.0 x10^3/uL (0.0-0.2) Prothrombin Time 19.2 SEC (11.7-14.0) Prothromb Time International Ratio 1.6 (0.8-1.1) Fibrinogen 130 mg/dL (200-440) Sodium Level 157 mmol/L (136-145) 153 mmol/L (136-145) Potassium Level 4.1 mmol/L (3.5-5.1) 3.5 mmol/L (3.5-5.1) Chloride Level 119 mmol/L (98-107) 118 mmol/L (98-107) Carbon Dioxide Level 23 mmol/L (21-32) 24 mmol/L (21-32) Anion Gap 15 (6-14) 11 (6-14) Blood Urea Nitrogen 17 mg/dL (7-20) 18 mg/dL (7-20) Creatinine 0.7 mg/dL (0.6-1.0) 0.7 mg/dL (0.6-1.0) Estimated GFR (Cockcroft-Gault) 82.7 82.7 Glucose Level 187 mg/dL (70-99) 190 mg/dL (70-99) 155 mg/dL (70-99) Calcium Level 9.0 mg/dL (8.5-10.1) 8.4 mg/dL (8.5-10.1) Bedside Hemoglobin (Calculated) 7.8 g/dL (12-15) Bedside Hematocrit 23 % (36-40) Bedside Arterial pH 7.34 (7.35-7.45) Arterial Blood pH (Temp corrected) 7.35 Bedside Arterial pCO2 38 mmHg (35-45) Arterial Blood pCO2 (Temp correct) 36 mmHg Bedside Arterial pO2 313 mmHg (75-100) Arterial Blood pO2 (Temp corrected) 308 mmHg Bedside Arterial HCO3 20 mmol/L (21-28) Bedside Arterial Total CO2 22 mmol/L (21-32) Arterial Bld O2 Saturation (Measur) 100 % (95-99) Bedside Arterial Blood Base Excess -5 mmol/L (0-3) Bedside FiO2 100.0 Bedside Sodium 153 mmol/L (135-145) Bedside Potassium 3.7 mmol/L (3.5-5.0) Bedside Ionized Calcium (Amilcar) 1.08 mmol/L (1.13-1.32) Phosphorus Level 3.7 mg/dL (2.6-4.7) Magnesium Level 1.2 mg/dL (1.8-2.4) Test 03/09/18 08:33 03/09/18 10:40 O2 Saturation 97 % (92-99) Arterial Blood pH 7.42 (7.35-7.45) Arterial Blood pCO2 at Patient Temp 34 mmHg (35-46) Arterial Blood pO2 at Patient Temp 106 mmHg (65-108) Arterial Blood HCO3 22 mmol/L (21-28) Arterial Blood Base Excess -2 mmol/L (-3-3) FiO2 50% White Blood Count 10.8 x10^3/uL (4.0-11.0) Red Blood Count 4.33 x10^6/uL (3.50-5.40) Hemoglobin 13.4 g/dL (12.0-15.5) Hematocrit 37.5 % (36.0-47.0) Mean Corpuscular Volume 87 fL (79-100) Mean Corpuscular Hemoglobin 31 pg (25-35) Mean Corpuscular Hemoglobin Concent 36 g/dL (31-37) Red Cell Distribution Width 15.1 % (11.5-14.5) Platelet Count 79 x10^3/uL (140-400) Neutrophils (%) (Auto) 70 % (31-73) Lymphocytes (%) (Auto) 20 % (24-48) Monocytes (%) (Auto) 10 % (0-9) Eosinophils (%) (Auto) 0 % (0-3) Basophils (%) (Auto) 0 % (0-3) Neutrophils # (Auto) 7.5 x10^3uL (1.8-7.7) Lymphocytes # (Auto) 2.1 x10^3/uL (1.0-4.8) Monocytes # (Auto) 1.1 x10^3/uL (0.0-1.1) Eosinophils # (Auto) 0.0 x10^3/uL (0.0-0.7) Basophils # (Auto) 0.0 x10^3/uL (0.0-0.2) Prothrombin Time 13.8 SEC (11.7-14.0) Prothromb Time International Ratio 1.1 (0.8-1.1) Fibrinogen 217 mg/dL (200-440) Hypernatremic. Platelets low but adequate. Vitals/I & O Vital Sign - Last 24 Hours 03/08/18 03/08/18 03/08/18 03/08/18 12:15 15:44 20:00 21:00 Temp 94.2 95.1 94.2 95.1 Pulse 89 70 78 Resp 18 17 14 16 B/P (MAP) 156/74 (101) 104/62 (76) Pulse Ox 99 99 100 O2 Delivery Nasal Cannula Ventilator Ventilator O2 Flow Rate 2.0 03/08/18 03/08/18 03/08/18 03/09/18 21:01 22:00 23:00 00:00 Temp 96.8 97.9 94.2 96.8 97.9 94.2 Pulse 80 88 70 Resp 16 16 14 B/P (MAP) 102/58 (73) 106/58 (74) 156/74 (101) Pulse Ox 100 100 100 99 O2 Delivery Ventilator Ventilator Ventilator Ventilator 03/09/18 03/09/18 03/09/18 03/09/18 00:19 01:00 04:00 05:00 Temp 98.9 97.9 98.9 97.9 Pulse 66 68 Resp 16 16 B/P (MAP) 186/88 (120) 116/62 (80) Pulse Ox 100 100 100 O2 Delivery Ventilator Ventilator Ventilator Ventilator 03/09/18 03/09/18 03/09/18 03/09/18 05:34 06:20 07:00 08:00 Temp 98.2 98.2 98.2 98.2 Pulse 71 78 Resp 16 16 B/P (MAP) 113/65 (81) 114/56 (75) Pulse Ox 100 100 100 O2 Delivery Ventilator Ventilator Mechanical Ventilator 03/09/18 03/09/18 03/09/18 03/09/18 08:00 08:00 08:25 09:00 Temp 98.4 98.6 98.4 98.6 Pulse 79 79 76 Resp 16 16 B/P (MAP) 116/56 (76) 116/56 (76) 82/50 (61) Pulse Ox 100 100 100 O2 Delivery Ventilator Ventilator Ventilator 03/09/18 03/09/18 03/09/18 03/09/18 09:11 10:00 11:00 11:26 Temp 99.0 99.1 99.0 99.1 Pulse 74 75 Resp 16 16 B/P (MAP) 110/62 (78) 14/51 (39) Pulse Ox 100 100 100 100 O2 Delivery Ventilator Ventilator Ventilator Ventilator 03/09/18 11:27 Resp 18 Pulse Ox 100 O2 Delivery Ventilator Intake and Output 03/08/18 03/08/18 03/09/18 15:01 23:01 07:01 Intake Total 70 ml 80 ml 306 ml Output Total 525 ml 970 ml 1105 ml Balance -455 ml -890 ml -799 ml Problem List Problems Medical Problems: (1) Hypotension Status: Acute Assessment Gastric variceal bleeding, 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 Now s/ p splenectomy, gastrotomy with ligation of varices. Given general situation, doing reasonably well. 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 Plan of Care: Continue current Tx, Mgmt Plan of Care Note If not on PPI, will start. No need for octreotide and will stop this if still receiving. Continue post-op care. CALI MISHRA MD Mar 09, 2018 11:45
[2018-03-09] MEDS ORDERED: POTASSIUM CHL 20MEQ PREMIX 50 ML IV ONE (12:45)
[2018-03-09] MEDS ORDERED: MAGNESIUM SULFATE 4GM 100 ML IV ONE (12:45)
--- NOTE | 2018-03-09 13:33 | PDOC2 ---
CONSULT Date of Consult Date of Consult DATE: 03/09/18 TIME: 13:18 Reason for consultation: Massive hemorrhage Consult: Hematology oncology, Dr. Tai Montanez History of present illness: The patient is a 72-year-old female with a history of hepatocellular carcinoma, unknown etiology, has been followed in [place] where she is from, [place], with initial resection followed by [facility], no evidence of active disease on recent scans this year per her , in town visiting family, felt weak, couldn't see well, was taken to the ER and en route had hematemesis and hematochezia, EGD noted gross blood without ability to manage due to the bleeding, IR was consulted for variceal bleeding, unsuccessful w/ concern for splenic v thrombosis, with some hemorrhage and ended up taken to the OR for splenectomy, had postop bleeding with a lot of drainage output from the TERE drain, taken back to the OR, I'm told some sprays were done, but since then her labs have stabilized and there is no active bleeding at the moment that we know of. She still is on Levophed. Anemia acute, severe, and improved with transfusion, associated with weakness and presyncope, worse due to variceal bleeding. As of 09 March 2018 at 0250 in the morning she had 20 red blood cells, 8 FFP, 1 cryo, 2 platelets, and NovoSeven 1 dose. Past medical history: Upper GI bleed June 2016 due to diulafoy lesion, improved with "spray" after EGD hepatocellular carcinoma resected with recurrent disease treated with multiple prior therapies including chemotherapy with sorafenib and opdivo, no known hepatitis or alcohol Past surgical history: EGDs Colonoscopies Liver resection Multiple IR procedures for hepatocellular carcinoma recurrent Splenectomy Take back surgery post splenectomy Cholecystectomy Allergies: No known drug allergies Medications: See attached list Social history: , from [place], no alcohol Family history: Diabetes, a sister with breast cancer Review of systems: Unobtainable as she is sedated and ventilated, per history of present illness from otherwise Physical exam: Vitals reviewed Gen.: Filipina female resting in bed, sedate, ventilated, in no acute distress HEENT: mucous membranes moist, head normocephalic atraumatic Neck: Supple, lines in place Lymph nodes: No obvious lymphadenopathy neck or axilla, limited exam Lungs: Breathing comfortably on ETT, no respiratory distress Heart: Regular rate and rhythm Abdomen: Soft, nontender, nondistended, bandaged post op Extremities: No cyanosis or signif edema Skin: No obvious rashes or skin breakdown Neuro: sedate, appears comfortable, grimaces to sticks Lab reviewed: White count 10.8, hemoglobin 13.4, platelets 79 Hemolytic 6.2 and platelets 154 on admit INR 1.1 Fibrinogen 217 PTT 38 Creatinine 0.7 T bili 1.1, liver enzymes are not elevated Rads reviewed: 03/07/[address] showed gastric distention with large serpiginous vessels consistent with varices, hepatic cysts, prior hepatic surgery, old upper abdominal coils, enlarged periuterine vessels Case discussed with: Her nurse, her , records reviewed in [facility] and [facility], including labs and radiology, please see note for summary details. Assessment and Plan: 72-year-old female with hepatocellular carcinoma, resected , on treatment in the past but no active disease per report, admitted with gastric variceal bleeding and concern for splenic vein thrombosis requiring splenectomy and take back surgery, who appears to be stabilized at least lab mcdowell since. Still on low-dose Levophed. Did have some heparin ordered but no anticoagulants now. Hypertension: On Levophed Hepatocellular carcinoma: She can follow-up with her primary oncologist upon discharge Variceal bleeding: Appears to be addressed definitively, will likely need EGD postoperatively to see if varices are still present? if propranolol versus other may be necessary? GI is involved as well as surgery, on PPI, antibiotics Anemia: Would transfuse for hemoglobin less than 7 Thrombocytopenia: Would transfuse for platelets less than 50 or active bleeding Coagulopathy: Would give vitamin K if INR greater than 1.5, cryoprecipitate if fibrinogen less than 100, no need for further NovoSeven at this time, CBCs are being followed Thank you kindly for this consultation, and please do not hesitate to call with any further questions, on-call will be available prior to me seeing her on Friday as needed. Past Medical History Cardiovascular: No pertinent hx Pulmonary: No pertinent hx GI: GERD, GI bleed, Other (HCC) Heme/Onc: No pertinent hx Hepatobiliary: Cirrhosis Psych: No pertinent hx Rheumatologic: No pertinent hx Infectious disease: No pertinent hx ENT: No pertinent hx Renal/: No pertinent hx Endocrine: No pertinent hx Dermatology: No pertinent hx Past Surgical History Past Surgical History: Cholecystectomy, Other (Liver resection) Family History Family History: No Significant, Diabetes Social History No ALCOHOL: none Drugs: None Current Problem List Problem List Problems Medical Problems: (1) Hypotension Status: Acute Current Medications Current Medications Current Medications Sodium Chloride 500 ml @ 500 mls/hr Q1H IV Last administered on 03/07/18at 18: 29; Start 03/07/18 at 18:30; Stop 03/07/18 at 18:42; Status DC Pantoprazole Sodium (PROTONIX VIAL for IV PUSH) 80 mg 1X ONCE IVP Last administered on 03/07/18at 19:00; Start 03/07/18 at 18:30; Stop 03/07/18 at 18 :32; Status DC Octreotide Acetate 500 mcg/ Sodium Chloride 101 ml @ 5.05 mls/hr CONT PRN IV SEE I/O RECORD Last administered on 03/09/18at 10:38; Start 03/07/18 at 19:30; Stop 03/09/18 at 11:47; Status DC Ondansetron HCl (Zofran) 4 mg PRN Q8HRS PRN IV NAUSEA/VOMITING; Start at 19:15; Stop 03/08/18 at 19:14; Status DC Iohexol (Omnipaque 300 Mg/ml) 75 ml 1X ONCE IV Last administered on at 20:32; Start 03/07/18 at 19:15; Stop 03/07/18 at 19:16; Status DC Info (CONTRAST GIVEN -- Rx MONITORING) 1 each PRN DAILY PRN MC SEE COMMENTS; Start 03/07/18 at 19:15; Stop 03/09/18 at 19:14 Propofol 20 ml @ As Directed STK-MED ONCE IV ; Start 03/07/18 at 22:37; Stop 03/07/18 at 22:38; Status DC Pantoprazole Sodium 80 mg/ Sodium Chloride 100 ml @ 10 mls/hr Q10H IV Last administered on 03/09/18at 07:50; Start 03/07/18 at 23:00 Ringer's Solution 1,000 ml @ 200 mls/hr Q5H IV Last administered on at 20:41; Start 03/07/18 at 23:15; Stop 03/09/18 at 10:58; Status DC Dopamine HCl/ Dextrose 250 ml @ 4.461 mls/ hr CONT PRN IV SEE I/O RECORD; Start 03/08/18 at 09:30 Lidocaine/Sodium Bicarbonate (Buffered Lidocaine 1%) 3 ml STK-MED ONCE .ROUTE ; Start 03/08/18 at 11:47; Stop 03/08/18 at 11:48; Status DC Iohexol (Omnipaque 300 Mg/ml) 100 ml STK-MED ONCE .ROUTE ; Start 03/08/18 at 11 :47; Stop 03/08/18 at 11:48; Status DC Heparin Sodium/ Sodium Chloride 1,000 ml @ As Directed STK-MED ONCE .ROUTE ; Start 03/08/18 at 11:47; Stop 03/08/18 at 11:48; Status DC Midazolam HCl (Versed) 2 mg STK-MED ONCE .ROUTE ; Start 03/08/18 at 12:06; Stop 03/08/18 at 12:07; Status DC Fentanyl Citrate (Fentanyl 2ml Vial) 100 mcg STK-MED ONCE .ROUTE ; Start at 12:06; Stop 03/08/18 at 12:07; Status DC Heparin Sodium/ Sodium Chloride (HEPARIN for ARTERIAL LINE FLUSH) 1,000 unit 1X ONCE IART Last administered on 03/08/18at 12:30; Start 03/08/18 at 12:30; Stop 03/08/18 at 12:31; Status DC Lidocaine/Sodium Bicarbonate (Buffered Lidocaine 1%) 3 ml 1X ONCE IJ Last administered on 03/08/18at 12:15; Start 03/08/18 at 12:15; Stop 03/08/18 at 12 :21; Status DC Midazolam HCl (Versed) 2 mg 1X ONCE IV ; Start 03/08/18 at 12:15; Stop at 12:21; Status DC Fentanyl Citrate (Fentanyl 2ml Vial) 100 mcg 1X ONCE IV Last administered on 03/08/18at 12:15; Start 03/08/18 at 12:15; Stop 03/08/18 at 12:21; Status DC Iohexol (Omnipaque 300 Mg/ml) 100 ml 1X ONCE IART Last administered on at 12:15; Start 03/08/18 at 12:15; Stop 03/08/18 at 12:21; Status DC Phenylephrine HCl (Wander-Synephrine Inj) 10 mg STK-MED ONCE .ROUTE ; Start at 13:25; Stop 03/08/18 at 13:26; Status DC Succinylcholine Chloride (Anectine) 200 mg STK-MED ONCE .ROUTE ; Start at 14:55; Stop 03/08/18 at 14:56; Status DC Propofol 20 ml @ As Directed STK-MED ONCE IV ; Start 03/08/18 at 14:55; Stop 03/08/18 at 14:56; Status DC Ketamine HCl (Ketamine) 50 mg STK-MED ONCE .ROUTE ; Start 03/08/18 at 14:55; Stop 03/08/18 at 14:57; Status DC Dexamethasone Sodium Phosphate (Decadron) 20 mg STK-MED ONCE .ROUTE ; Start at 14:56; Stop 03/08/18 at 14:58; Status DC Ondansetron HCl (Zofran) 4 mg STK-MED ONCE .ROUTE ; Start 03/08/18 at 14:57; Stop 03/08/18 at 14:58; Status DC Lidocaine HCl (Lidocaine Pf 2% Vial) 5 ml STK-MED ONCE .ROUTE ; Start 03/08/18 at 14:57; Stop 03/08/18 at 14:58; Status DC Propofol 20 ml @ As Directed STK-MED ONCE IV ; Start 03/08/18 at 14:57; Stop 03/08/18 at 14:58; Status DC Fentanyl Citrate (Fentanyl 5ml Vial) 250 mcg STK-MED ONCE .ROUTE ; Start at 15:54; Stop 03/08/18 at 15:55; Status DC Rocuronium [place] (Zemuron) 100 mg STK-MED ONCE .ROUTE ; Start 03/08/18 at 15: 55; Stop 03/08/18 at 15:57; Status DC Cefazolin Sodium 100 ml @ As Directed STK-MED ONCE IV ; Start 03/08/18 at 15: 57; Stop 03/08/18 at 15:59; Status DC Cellulose (Surgicel Hemostat 4x8) 1 each STK-MED ONCE .ROUTE Last administered on 03/08/18at 15:53; Start 03/08/18 at 16:27; Stop 03/08/18 at 16:28; Status DC Cellulose (Surgicel Hemostat 2x3) 1 each STK-MED ONCE .ROUTE Last administered on 03/08/18at 15:53; Start 03/08/18 at 16:42; Stop 03/08/18 at 16:44; Status DC Cellulose (Surgicel Hemostat 2x14) 1 each STK-MED ONCE .ROUTE ; Start 03/08/18 at 16:42; Stop 03/08/18 at 16:44; Status DC Cellulose (Surgicel Hemostat 4x8) 1 each STK-MED ONCE .ROUTE Last administered on 03/08/18at 15:53; Start 03/08/18 at 16:42; Stop 03/08/18 at 16:44; Status DC Calcium Chloride (Calcium Chloride) 1,000 mg STK-MED ONCE .ROUTE ; Start at 17:03; Stop 03/08/18 at 17:04; Status DC Calcium Chloride (Calcium Chloride) 1,000 mg STK-MED ONCE .ROUTE ; Start at 17:03; Stop 03/08/18 at 17:04; Status DC Sodium Bicarbonate (Sodium Bicarb Adult 8.4% Syr) 50 meq STK-MED ONCE .ROUTE ; Start 03/08/18 at 17:03; Stop 03/08/18 at 17:04; Status DC Sodium Bicarbonate (Sodium Bicarb Adult 8.4% Syr) 50 meq STK-MED ONCE .ROUTE ; Start 03/08/18 at 17:03; Stop 03/08/18 at 17:04; Status DC Epinephrine HCl (EPINEPHrine SYRINGE) 1 mg STK-MED ONCE .ROUTE ; Start at 17:03; Stop 03/08/18 at 17:04; Status DC Albumin Human 500 ml @ As Directed STK-MED ONCE IV ; Start 03/08/18 at 17:03; Stop 03/08/18 at 17:04; Status DC Sodium Bicarbonate (Sodium Bicarb Adult 8.4% Syr) 50 meq STK-MED ONCE .ROUTE ; Start 03/08/18 at 17:07; Stop 03/08/18 at 17:08; Status DC Sodium Bicarbonate (Sodium Bicarb Adult 8.4% Syr) 50 meq STK-MED ONCE .ROUTE ; Start 03/08/18 at 17:07; Stop 03/08/18 at 17:08; Status DC Cellulose (Surgicel Hemostat 4x8) 1 each STK-MED ONCE TP Last administered on 03/08/18at 15:53; Start 03/08/18 at 15:53; Stop 03/08/18 at 17:40; Status DC Sodium Bicarbonate (Sodium Bicarb Adult 8.4% Syr) 50 meq STK-MED ONCE .ROUTE ; Start 03/08/18 at 17:35; Stop 03/08/18 at 17:37; Status DC Calcium Chloride (Calcium Chloride) 1,000 mg STK-MED ONCE .ROUTE ; Start at 17:35; Stop 03/08/18 at 17:37; Status DC Albumin Human 500 ml @ As Directed STK-MED ONCE IV ; Start 03/08/18 at 17:41; Stop 03/08/18 at 17:43; Status DC Norepinephrine Bitartrate 250 ml @ 1.875 mls/ hr 1X ONCE IV Last administered on 03/08/18at 21:00; Start 03/08/18 at 17:45; Stop 03/09/18 at 08 :10; Status DC Vasopressin 40 unit/Dextrose 102 ml @ 6 mls/hr 1X ONCE IV Last administered on 03/08/18at 20:41; Start 03/08/18 at 18:00; Stop 03/09/18 at 10:59; Status DC Calcium Chloride (Calcium Chloride) 1,000 mg STK-MED ONCE .ROUTE ; Start at 17:57; Stop 03/08/18 at 17:59; Status DC Sodium Bicarbonate (Sodium Bicarb Adult 8.4% Syr) 50 meq STK-MED ONCE .ROUTE ; Start 03/08/18 at 18:04; Stop 03/08/18 at 18:06; Status DC Sodium Bicarbonate (Sodium Bicarb Adult 8.4% Syr) 50 meq STK-MED ONCE .ROUTE ; Start 03/08/18 at 18:05; Stop 03/08/18 at 18:06; Status DC Sodium Bicarbonate (Sodium Bicarb Adult 8.4% Syr) 50 meq STK-MED ONCE .ROUTE ; Start 03/08/18 at 18:07; Stop 03/08/18 at 18:08; Status DC Sodium Bicarbonate (Sodium Bicarb Adult 8.4% Syr) 50 meq STK-MED ONCE .ROUTE ; Start 03/08/18 at 18:07; Stop 03/08/18 at 18:08; Status DC Epinephrine HCl (EPINEPHrine SYRINGE) 1 mg STK-MED ONCE .ROUTE ; Start at 18:40; Stop 03/08/18 at 18:41; Status DC Prochlorperazine Edisylate (Compazine) 10 mg STK-MED ONCE .ROUTE ; Start at 18:42; Stop 03/08/18 at 18:44; Status DC Fentanyl Citrate (Fentanyl 2ml Vial) 100 mcg STK-MED ONCE .ROUTE ; Start at 18:43; Stop 03/08/18 at 18:44; Status DC Sevoflurane (Ultane) 90 ml STK-MED ONCE IH ; Start 03/08/18 at 18:48; Stop at 18:49; Status DC Cellulose (Surgicel Hemostat 2x3) 1 each STK-MED ONCE TP Last administered on 03/08/18at 15:55; Start 03/08/18 at 15:55; Stop 03/08/18 at 19:04; Status DC Cellulose (Surgicel Hemostat 2x3) 1 each STK-MED ONCE TP Last administered on 03/08/18at 15:53; Start 03/08/18 at 15:53; Stop 03/08/18 at 19:04; Status DC Propofol 100 ml @ As Directed STK-MED ONCE IV ; Start 03/08/18 at 19:56; Stop 03/08/18 at 19:58; Status DC Famotidine (Pepcid) 20 mg BID PO ; Start 03/08/18 at 21:00; Stop 03/09/18 at 08:11; Status DC Sodium Chloride (Normal Saline Flush) 3 ml QSHIFT PRN IV AFTER MEDS AND BLOOD DRAWS; Start 03/08/18 at 20:45 Morphine Sulfate (Morphine Sulfate) 1 mg PRN Q1HR PRN IV PAIN Last administered on 03/08/18at 21:12; Start 03/08/18 at 20:45 Ondansetron HCl (Zofran) 4 mg PRN Q6HRS PRN IV NAUESA, 1ST CHOICE; Start 03/08 at 20:45 Fentanyl Citrate 30 ml @ 0 mls/hr CONT PRN IV SEE PROTOCOL Last administered on 03/09/18at 11:27; Start 03/08/18 at 22:15 Fentanyl Citrate (Fentanyl 2ml Vial) 25 mcg PRN Q1HR PRN IV SEE COMMENTS; Start 03/08/18 at 22:15 Fentanyl Citrate (Fentanyl 2ml Vial) 50 mcg PRN Q1HR PRN IV SEE COMMENTS Last administered on 03/08/18at 22:41; Start 03/08/18 at 22:15 Chlorhexidine Gluconate (Peridex) 15 ml BID MM ; Start 03/09/18 at 09:00 Midazolam HCl 100 ml @ 0 mls/hr CONT PRN IV SEE PROTOCOL Last administered on 03/08/18at 22:52; Start 03/08/18 at 22:15 Factor IX (Pha) (Novoseven Rt) 1 mg 1X ONCE IV Last administered on at 01:09; Start 03/09/18 at 01:00; Stop 03/09/18 at 01:01; Status DC Lorazepam (Ativan) 2 mg STK-MED ONCE .ROUTE ; Start 03/09/18 at 01:15; Stop at 01:16; Status DC Norepinephrine Bitartrate 250 ml @ 1.875 mls/ hr CONT PRN IV SEE I/O RECORD; Start 03/09/18 at 01:45 Cefazolin Sodium/ Dextrose 50 ml @ 100 mls/hr 1X PREOP PRN IV PRIOR TO PROCEDURE Last administered on 03/09/18at 02:00; Start 03/09/18 at 02:00; Stop 03/10/18 at 01:59 Rocuronium [place] (Zemuron) 100 mg STK-MED ONCE .ROUTE ; Start 03/09/18 at 01: 57; Stop 03/09/18 at 01:59; Status DC Fentanyl Citrate (Fentanyl 5ml Vial) 250 mcg STK-MED ONCE .ROUTE ; Start at 02:13; Stop 03/09/18 at 02:14; Status DC Cellulose (Surgicel Hemostat 2x3) 1 each STK-MED ONCE .ROUTE ; Start 03/09/18 at 02:23; Stop 03/09/18 at 02:25; Status DC Cellulose (Surgicel Hemostat 2x14) 1 each STK-MED ONCE .ROUTE ; Start 03/09/18 at 02:23; Stop 03/09/18 at 02:25; Status DC Cellulose (Surgicel Hemostat 4x8) 1 each STK-MED ONCE .ROUTE Last administered on 03/09/18at 02:04; Start 03/09/18 at 02:23; Stop 03/09/18 at 02:25; Status DC Sodium Chloride (Normal Saline Flush) 3 ml QSHIFT PRN IV AFTER MEDS AND BLOOD DRAWS; Start 03/09/18 at 03:30 Cellulose (Surgicel Hemostat 4x8) 1 each STK-MED ONCE TP Last administered on 03/09/18at 02:04; Start 03/09/18 at 02:04; Stop 03/09/18 at 03:20; Status DC Cellulose (Surgicel Hemostat 4x8) 1 each STK-MED ONCE TP Last administered on 03/09/18at 02:04; Start 03/09/18 at 02:04; Stop 03/09/18 at 03:20; Status DC Sodium Bicarbonate (Sodium Bicarb Adult 8.4% Syr) 150 meq STK-MED ONCE .ROUTE ; Start 03/08/18 at 10:00; Stop 03/09/18 at 10:30; Status DC Dopamine HCl/ Dextrose (DOPamine 400MG/ 250ML PREMIX) 400 mg STK-MED ONCE IV ; Start 03/08/18 at 10:00; Stop 03/09/18 at 10:30; Status DC Potassium Chloride/Dextrose 1,000 ml @ 100 mls/hr Q10H IV Last administered on 03/09/18at 11:22; Start 03/09/18 at 11:00 Magnesium Sulfate/ Dextrose 100 ml @ 25 mls/hr 1X ONCE IV ; Start 03/09/18 at 12:45; Stop 03/09/18 at 16:44 Potassium Chloride/Water 50 ml @ 50 mls/hr 1X ONCE IV ; Start 03/09/18 at 12: 45; Stop 03/09/18 at 13:44 Active Scripts Active Reported Prilosec Otc (Omeprazole Magnesium) 20 Mg Tablet.dr 1 Tab PO DAILY Simvastatin 20 Mg Tablet 1 Tab PO QHS Allergies Allergies: Coded Allergies: I S O L A T I O N *CONTACT* (Verified Allergy, Unknown, 03/09/18) mrsa No Known Medication Allergies (Verified Allergy, Unknown, 03/09/18) Vitals VITALS Vital Signs Date Time Temp Pulse Resp B/P (MAP) Pulse Ox O2 Delivery O2 Flow Rate FiO2 03/09/18 13:00 99.3 75 16 99/47 (64) 100 Ventilator 99.3 03/08/18 15:44 2.0 Labs Labs Laboratory Tests Test 03/07/18 18:40 03/07/18 19:11 03/07/18 21:08 03/07/18 22:30 Prothrombin Time 14.3 SEC (11.7-14.0) Prothromb Time International Ratio 1.1 (0.8-1.1) Sodium Level 143 mmol/L (136-145) Potassium Level 3.4 mmol/L (3.5-5.1) Chloride Level 109 mmol/L (98-107) Carbon Dioxide Level 22 mmol/L (21-32) Anion Gap 12 (6-14) Blood Urea Nitrogen 9 mg/dL (7-20) Creatinine 0.8 mg/dL (0.6-1.0) Estimated GFR (Cockcroft-Gault) 70.9 BUN/Creatinine Ratio 11 (6-20) Glucose Level 155 mg/dL (70-99) Calcium Level 8.4 mg/dL (8.5-10.1) Total Bilirubin 0.4 mg/dL (0.2-1.0) Aspartate Amino Transf (AST/SGOT) 73 U/L (15-37) Alanine Aminotransferase (ALT/SGPT) 47 U/L (14-59) Alkaline Phosphatase 280 U/L (46-116) Troponin I Quantitative < 0.017 ng/mL (0.000-0.055) 0.022 ng/mL (0.000-0.055) Total Protein 9.3 g/dL (6.4-8.2) Albumin 2.0 g/dL (3.4-5.0) Albumin/Globulin Ratio 0.3 (1.0-1.7) White Blood Count 8.2 x10^3/uL (4.0-11.0) Red Blood Count 2.16 x10^6/uL (3.50-5.40) Hemoglobin 6.7 g/dL (12.0-15.5) Hematocrit 19.4 % (36.0-47.0) Mean Corpuscular Volume 90 fL (79-100) Mean Corpuscular Hemoglobin 31 pg (25-35) Mean Corpuscular Hemoglobin Concent 35 g/dL (31-37) Red Cell Distribution Width 16.8 % (11.5-14.5) Platelet Count 151 x10^3/uL (140-400) Neutrophils (%) (Auto) 58 % (31-73) Lymphocytes (%) (Auto) 32 % (24-48) Monocytes (%) (Auto) 8 % (0-9) Eosinophils (%) (Auto) 2 % (0-3) Basophils (%) (Auto) 0 % (0-3) Neutrophils # (Auto) 4.7 x10^3uL (1.8-7.7) Lymphocytes # (Auto) 2.6 x10^3/uL (1.0-4.8) Monocytes # (Auto) 0.7 x10^3/uL (0.0-1.1) Eosinophils # (Auto) 0.1 x10^3/uL (0.0-0.7) Basophils # (Auto) 0.0 x10^3/uL (0.0-0.2) Nasal Screen MRSA (PCR) Positive (Negative) Test 03/07/18 22:40 03/08/18 04:10 03/08/18 05:00 03/08/18 12:10 White Blood Count 6.6 x10^3/uL (4.0-11.0) 6.2 x10^3/uL (4.0-11.0) 7.4 x10^3/uL (4.0-11.0) Red Blood Count 3.02 x10^6/uL (3.50-5.40) 2.48 x10^6/uL (3.50-5.40) 2.10 x10^6/uL (3.50-5.40) Hemoglobin 9.3 g/dL (12.0-15.5) 7.8 g/dL (12.0-15.5) 6.4 g/dL (12.0-15.5) Hematocrit 26.6 % (36.0-47.0) 21.6 % (36.0-47.0) 18.3 % (36.0-47.0) Mean Corpuscular Volume 88 fL (79-100) 87 fL (79-100) 87 fL (79-100) Mean Corpuscular Hemoglobin 31 pg (25-35) 32 pg (25-35) 31 pg (25-35) Mean Corpuscular Hemoglobin Concent 35 g/dL (31-37) 36 g/dL (31-37) 35 g/dL (31-37) Red Cell Distribution Width 15.6 % (11.5-14.5) 15.6 % (11.5-14.5) 16.0 % (11.5-14.5) Platelet Count 121 x10^3/uL (140-400) 111 x10^3/uL (140-400) 119 x10^3/uL (140-400) Sodium Level 145 mmol/L (136-145) Potassium Level 4.1 mmol/L (3.5-5.1) Chloride Level 116 mmol/L (98-107) Carbon Dioxide Level 20 mmol/L (21-32) Anion Gap 9 (6-14) Blood Urea Nitrogen 11 mg/dL (7-20) Creatinine 0.6 mg/dL (0.6-1.0) Estimated GFR (Cockcroft-Gault) 98.8 BUN/Creatinine Ratio 18 (6-20) Glucose Level 116 mg/dL (70-99) Calcium Level 6.8 mg/dL (8.5-10.1) Total Bilirubin 0.6 mg/dL (0.2-1.0) Aspartate Amino Transf (AST/SGOT) 50 U/L (15-37) Alanine Aminotransferase (ALT/SGPT) 32 U/L (14-59) Alkaline Phosphatase 166 U/L (46-116) Total Protein 6.1 g/dL (6.4-8.2) Albumin 1.3 g/dL (3.4-5.0) Albumin/Globulin Ratio 0.3 (1.0-1.7) Neutrophils (%) (Auto) 59 % (31-73) Lymphocytes (%) (Auto) 31 % (24-48) Monocytes (%) (Auto) 9 % (0-9) Eosinophils (%) (Auto) 0 % (0-3) Basophils (%) (Auto) 0 % (0-3) Neutrophils # (Auto) 3.7 x10^3uL (1.8-7.7) Lymphocytes # (Auto) 1.9 x10^3/uL (1.0-4.8) Monocytes # (Auto) 0.6 x10^3/uL (0.0-1.1) Eosinophils # (Auto) 0.0 x10^3/uL (0.0-0.7) Basophils # (Auto) 0.0 x10^3/uL (0.0-0.2) Prothrombin Time 17.4 SEC (11.7-14.0) 18.2 SEC (11.7-14.0) Prothromb Time International Ratio 1.5 (0.8-1.1) 1.5 (0.8-1.1) Test 03/08/18 14:53 03/08/18 16:35 03/08/18 17:01 03/08/18 18:57 White Blood Count 15.0 x10^3/uL (4.0-11.0) Red Blood Count 3.65 x10^6/uL (3.50-5.40) Hemoglobin 10.9 g/dL (12.0-15.5) Hematocrit 31.6 % (36.0-47.0) Mean Corpuscular Volume 87 fL (79-100) Mean Corpuscular Hemoglobin 30 pg (25-35) Mean Corpuscular Hemoglobin Concent 35 g/dL (31-37) Red Cell Distribution Width 15.4 % (11.5-14.5) Platelet Count 102 x10^3/uL (140-400) Neutrophils (%) (Auto) 77 % (31-73) Lymphocytes (%) (Auto) 18 % (24-48) Monocytes (%) (Auto) 4 % (0-9) Eosinophils (%) (Auto) 0 % (0-3) Basophils (%) (Auto) 1 % (0-3) Neutrophils # (Auto) 11.5 x10^3uL (1.8-7.7) Lymphocytes # (Auto) 2.7 x10^3/uL (1.0-4.8) Monocytes # (Auto) 0.6 x10^3/uL (0.0-1.1) Eosinophils # (Auto) 0.0 x10^3/uL (0.0-0.7) Basophils # (Auto) 0.1 x10^3/uL (0.0-0.2) Prothrombin Time 16.8 SEC (11.7-14.0) Prothromb Time International Ratio 1.4 (0.8-1.1) Activated Partial Thromboplast Time 38 SEC (24-38) Fibrinogen 207 mg/dL (200-440) Sodium Level 144 mmol/L (136-145) Potassium Level 4.0 mmol/L (3.5-5.1) Chloride Level 112 mmol/L (98-107) Carbon Dioxide Level 19 mmol/L (21-32) Anion Gap 13 (6-14) Blood Urea Nitrogen 16 mg/dL (7-20) Creatinine 0.7 mg/dL (0.6-1.0) Estimated GFR (Cockcroft-Gault) 82.7 Glucose Level 206 mg/dL (70-99) 207 mg/dL (70-99) 220 mg/dL (70-99) 194 mg/dL (70-99) Calcium Level 7.1 mg/dL (8.5-10.1) Ionized Calcium 0.84 mmol/L (1.13-1.32) Bedside Hematocrit 15 % (36-40) 17 % (36-40) 19 % (36-40) Arterial Blood pH (Temp corrected) 7.23 7.24 7.28 Arterial Blood pCO2 (Temp correct) 38 mmHg 44 mmHg 49 mmHg Arterial Blood pO2 (Temp corrected) 327 mmHg 317 mmHg 411 mmHg Bedside Venous pH 7.23 (7.32-7.42) Bedside Venous pCO2 38 mmHg (41-51) Bedside Venous pO2 327 mmHg (20-40) Bedside Venous HCO3 16 mmol/L (24-28) Bedside Venous Blood Total CO2 17 mmol/L (21-32) Bedside Venous Blood O2 Saturation 100 % Bedside Venous Blood Base Excess -12 mmol/L (0-3) POC Venous Hemoglobin (Calc) 5.1 g/dL (12-15) Bedside FiO2 100 100.0 100.0 Bedside Sodium 147 mmol/L (135-145) 151 mmol/L (135-145) 155 mmol/L (135-145) Bedside Potassium 3.9 mmol/L (3.5-5.0) 3.2 mmol/L (3.5-5.0) 3.1 mmol/L (3.5-5.0) Bedside Ionized Calcium (Amilcar) 0.85 mmol/L (1.13-1.32) 1.34 mmol/L (1.13-1.32) 1.17 mmol/L (1.13-1.32) Bedside Hemoglobin (Calculated) 5.8 g/dL (12-15) 6.5 g/dL (12-15) Bedside Arterial pH 7.24 (7.35-7.45) 7.27 (7.35-7.45) Bedside Arterial pCO2 44 mmHg (35-45) 52 mmHg (35-45) Bedside Arterial pO2 317 mmHg (75-100) 416 mmHg (75-100) Bedside Arterial HCO3 19 mmol/L (21-28) 24 mmol/L (21-28) Bedside Arterial Total CO2 20 mmol/L (21-32) 25 mmol/L (21-32) Arterial Bld O2 Saturation (Measur) 100 % (95-99) 100 % (95-99) Bedside Arterial Blood Base Excess -9 mmol/L (0-3) -3 mmol/L (0-3) Test 03/08/18 19:36 03/08/18 19:40 03/08/18 20:00 03/08/18 23:40 Glucose (Fingerstick) 151 mg/dL (70-99) White Blood Count 6.0 x10^3/uL (4.0-11.0) 9.5 x10^3/uL (4.0-11.0) Red Blood Count 3.11 x10^6/uL (3.50-5.40) 2.01 x10^6/uL (3.50-5.40) Hemoglobin 9.4 g/dL (12.0-15.5) 6.2 g/dL (12.0-15.5) Hematocrit 26.9 % (36.0-47.0) 17.3 % (36.0-47.0) Mean Corpuscular Volume 87 fL (79-100) 86 fL (79-100) Mean Corpuscular Hemoglobin 30 pg (25-35) 31 pg (25-35) Mean Corpuscular Hemoglobin Concent 35 g/dL (31-37) 36 g/dL (31-37) Red Cell Distribution Width 14.7 % (11.5-14.5) 14.2 % (11.5-14.5) Platelet Count 43 x10^3/uL (140-400) 154 x10^3/uL (140-400) Neutrophils (%) (Auto) 81 % (31-73) Lymphocytes (%) (Auto) 12 % (24-48) Monocytes (%) (Auto) 7 % (0-9) Eosinophils (%) (Auto) 0 % (0-3) Basophils (%) (Auto) 0 % (0-3) Neutrophils # (Auto) 4.9 x10^3uL (1.8-7.7) Lymphocytes # (Auto) 0.7 x10^3/uL (1.0-4.8) Monocytes # (Auto) 0.4 x10^3/uL (0.0-1.1) Eosinophils # (Auto) 0.0 x10^3/uL (0.0-0.7) Basophils # (Auto) 0.0 x10^3/uL (0.0-0.2) Platelet Estimate Decreased (ADEQUATE) Prothrombin Time 19.2 SEC (11.7-14.0) Prothromb Time International Ratio 1.6 (0.8-1.1) Sodium Level 158 mmol/L (136-145) Potassium Level 3.3 mmol/L (3.5-5.1) Chloride Level 120 mmol/L (98-107) Carbon Dioxide Level 24 mmol/L (21-32) Anion Gap 14 (6-14) Blood Urea Nitrogen 13 mg/dL (7-20) Creatinine 0.6 mg/dL (0.6-1.0) Estimated GFR (Cockcroft-Gault) 98.8 BUN/Creatinine Ratio 22 (6-20) Glucose Level 192 mg/dL (70-99) Calcium Level 9.7 mg/dL (8.5-10.1) Total Bilirubin 1.1 mg/dL (0.2-1.0) Aspartate Amino Transf (AST/SGOT) 26 U/L (15-37) Alanine Aminotransferase (ALT/SGPT) 24 U/L (14-59) Alkaline Phosphatase 39 U/L (46-116) Total Protein 4.0 g/dL (6.4-8.2) Albumin 2.4 g/dL (3.4-5.0) Albumin/Globulin Ratio 1.5 (1.0-1.7) O2 Saturation 98 % (92-99) Arterial Blood pH 7.35 (7.35-7.45) Arterial Blood pH (Temp corrected) 7.38 Arterial Blood pCO2 at Patient Temp 42 mmHg (35-46) Arterial Blood pCO2 (Temp correct) 38 mmHg Arterial Blood pO2 at Patient Temp 145 mmHg (65-108) Arterial Blood pO2 (Temp corrected) 132 mmHg Arterial Blood HCO3 23 mmol/L (21-28) Arterial Blood Base Excess -3 mmol/L (-3-3) FiO2 50 Test 03/09/18 00:42 03/09/18 02:59 03/09/18 05:50 03/09/18 08:33 White Blood Count 10.2 x10^3/uL (4.0-11.0) 8.9 x10^3/uL (4.0-11.0) Red Blood Count 2.11 x10^6/uL (3.50-5.40) 4.50 x10^6/uL (3.50-5.40) Hemoglobin 6.5 g/dL (12.0-15.5) 13.6 g/dL (12.0-15.5) Hematocrit 18.2 % (36.0-47.0) 39.2 % (36.0-47.0) Mean Corpuscular Volume 86 fL (79-100) 87 fL (79-100) Mean Corpuscular Hemoglobin 31 pg (25-35) 30 pg (25-35) Mean Corpuscular Hemoglobin Concent 36 g/dL (31-37) 35 g/dL (31-37) Red Cell Distribution Width 14.5 % (11.5-14.5) 14.9 % (11.5-14.5) Platelet Count 160 x10^3/uL (140-400) 79 x10^3/uL (140-400) Neutrophils (%) (Auto) 76 % (31-73) 73 % (31-73) Lymphocytes (%) (Auto) 16 % (24-48) 19 % (24-48) Monocytes (%) (Auto) 8 % (0-9) 8 % (0-9) Eosinophils (%) (Auto) 0 % (0-3) 0 % (0-3) Basophils (%) (Auto) 0 % (0-3) 0 % (0-3) Neutrophils # (Auto) 7.8 x10^3uL (1.8-7.7) 6.5 x10^3uL (1.8-7.7) Lymphocytes # (Auto) 1.7 x10^3/uL (1.0-4.8) 1.7 x10^3/uL (1.0-4.8) Monocytes # (Auto) 0.8 x10^3/uL (0.0-1.1) 0.7 x10^3/uL (0.0-1.1) Eosinophils # (Auto) 0.0 x10^3/uL (0.0-0.7) 0.0 x10^3/uL (0.0-0.7) Basophils # (Auto) 0.0 x10^3/uL (0.0-0.2) 0.0 x10^3/uL (0.0-0.2) Prothrombin Time 19.2 SEC (11.7-14.0) Prothromb Time International Ratio 1.6 (0.8-1.1) Fibrinogen 130 mg/dL (200-440) Sodium Level 157 mmol/L (136-145) 153 mmol/L (136-145) Potassium Level 4.1 mmol/L (3.5-5.1) 3.5 mmol/L (3.5-5.1) Chloride Level 119 mmol/L (98-107) 118 mmol/L (98-107) Carbon Dioxide Level 23 mmol/L (21-32) 24 mmol/L (21-32) Anion Gap 15 (6-14) 11 (6-14) Blood Urea Nitrogen 17 mg/dL (7-20) 18 mg/dL (7-20) Creatinine 0.7 mg/dL (0.6-1.0) 0.7 mg/dL (0.6-1.0) Estimated GFR (Cockcroft-Gault) 82.7 82.7 Glucose Level 187 mg/dL (70-99) 190 mg/dL (70-99) 155 mg/dL (70-99) Calcium Level 9.0 mg/dL (8.5-10.1) 8.4 mg/dL (8.5-10.1) Bedside Hemoglobin (Calculated) 7.8 g/dL (12-15) Bedside Hematocrit 23 % (36-40) Bedside Arterial pH 7.34 (7.35-7.45) Arterial Blood pH (Temp corrected) 7.35 Bedside Arterial pCO2 38 mmHg (35-45) Arterial Blood pCO2 (Temp correct) 36 mmHg Bedside Arterial pO2 313 mmHg (75-100) Arterial Blood pO2 (Temp corrected) 308 mmHg Bedside Arterial HCO3 20 mmol/L (21-28) Bedside Arterial Total CO2 22 mmol/L (21-32) Arterial Bld O2 Saturation (Measur) 100 % (95-99) Bedside Arterial Blood Base Excess -5 mmol/L (0-3) Bedside FiO2 100.0 Bedside Sodium 153 mmol/L (135-145) Bedside Potassium 3.7 mmol/L (3.5-5.0) Bedside Ionized Calcium (Amilcar) 1.08 mmol/L (1.13-1.32) Phosphorus Level 3.7 mg/dL (2.6-4.7) Magnesium Level 1.2 mg/dL (1.8-2.4) O2 Saturation 97 % (92-99) Arterial Blood pH 7.42 (7.35-7.45) Arterial Blood pCO2 at Patient Temp 34 mmHg (35-46) Arterial Blood pO2 at Patient Temp 106 mmHg (65-108) Arterial Blood HCO3 22 mmol/L (21-28) Arterial Blood Base Excess -2 mmol/L (-3-3) FiO2 50% Test 03/09/18 10:40 White Blood Count 10.8 x10^3/uL (4.0-11.0) Red Blood Count 4.33 x10^6/uL (3.50-5.40) Hemoglobin 13.4 g/dL (12.0-15.5) Hematocrit 37.5 % (36.0-47.0) Mean Corpuscular Volume 87 fL (79-100) Mean Corpuscular Hemoglobin 31 pg (25-35) Mean Corpuscular Hemoglobin Concent 36 g/dL (31-37) Red Cell Distribution Width 15.1 % (11.5-14.5) Platelet Count 79 x10^3/uL (140-400) Neutrophils (%) (Auto) 70 % (31-73) Lymphocytes (%) (Auto) 20 % (24-48) Monocytes (%) (Auto) 10 % (0-9) Eosinophils (%) (Auto) 0 % (0-3) Basophils (%) (Auto) 0 % (0-3) Neutrophils # (Auto) 7.5 x10^3uL (1.8-7.7) Lymphocytes # (Auto) 2.1 x10^3/uL (1.0-4.8) Monocytes # (Auto) 1.1 x10^3/uL (0.0-1.1) Eosinophils # (Auto) 0.0 x10^3/uL (0.0-0.7) Basophils # (Auto) 0.0 x10^3/uL (0.0-0.2) Prothrombin Time 13.8 SEC (11.7-14.0) Prothromb Time International Ratio 1.1 (0.8-1.1) Fibrinogen 217 mg/dL (200-440) Laboratory Tests Test 03/08/18 14:53 03/08/18 16:35 03/08/18 17:01 03/08/18 18:57 White Blood Count 15.0 x10^3/uL (4.0-11.0) Red Blood Count 3.65 x10^6/uL (3.50-5.40) Hemoglobin 10.9 g/dL (12.0-15.5) Hematocrit 31.6 % (36.0-47.0) Mean Corpuscular Volume 87 fL (79-100) Mean Corpuscular Hemoglobin 30 pg (25-35) Mean Corpuscular Hemoglobin Concent 35 g/dL (31-37) Red Cell Distribution Width 15.4 % (11.5-14.5) Platelet Count 102 x10^3/uL (140-400) Neutrophils (%) (Auto) 77 % (31-73) Lymphocytes (%) (Auto) 18 % (24-48) Monocytes (%) (Auto) 4 % (0-9) Eosinophils (%) (Auto) 0 % (0-3) Basophils (%) (Auto) 1 % (0-3) Neutrophils # (Auto) 11.5 x10^3uL (1.8-7.7) Lymphocytes # (Auto) 2.7 x10^3/uL (1.0-4.8) Monocytes # (Auto) 0.6 x10^3/uL (0.0-1.1) Eosinophils # (Auto) 0.0 x10^3/uL (0.0-0.7) Basophils # (Auto) 0.1 x10^3/uL (0.0-0.2) Prothrombin Time 16.8 SEC (11.7-14.0) Prothromb Time International Ratio 1.4 (0.8-1.1) Activated Partial Thromboplast Time 38 SEC (24-38) Fibrinogen 207 mg/dL (200-440) Sodium Level 144 mmol/L (136-145) Potassium Level 4.0 mmol/L (3.5-5.1) Chloride Level 112 mmol/L (98-107) Carbon Dioxide Level 19 mmol/L (21-32) Anion Gap 13 (6-14) Blood Urea Nitrogen 16 mg/dL (7-20) Creatinine 0.7 mg/dL (0.6-1.0) Estimated GFR (Cockcroft-Gault) 82.7 Glucose Level 206 mg/dL (70-99) 207 mg/dL (70-99) 220 mg/dL (70-99) 194 mg/dL (70-99) Calcium Level 7.1 mg/dL (8.5-10.1) Ionized Calcium 0.84 mmol/L (1.13-1.32) Bedside Hematocrit 15 % (36-40) 17 % (36-40) 19 % (36-40) Arterial Blood pH (Temp corrected) 7.23 7.24 7.28 Arterial Blood pCO2 (Temp correct) 38 mmHg 44 mmHg 49 mmHg Arterial Blood pO2 (Temp corrected) 327 mmHg 317 mmHg 411 mmHg Bedside Venous pH 7.23 (7.32-7.42) Bedside Venous pCO2 38 mmHg (41-51) Bedside Venous pO2 327 mmHg (20-40) Bedside Venous HCO3 16 mmol/L (24-28) Bedside Venous Blood Total CO2 17 mmol/L (21-32) Bedside Venous Blood O2 Saturation 100 % Bedside Venous Blood Base Excess -12 mmol/L (0-3) POC Venous Hemoglobin (Calc) 5.1 g/dL (12-15) Bedside FiO2 100 100.0 100.0 Bedside Sodium 147 mmol/L (135-145) 151 mmol/L (135-145) 155 mmol/L (135-145) Bedside Potassium 3.9 mmol/L (3.5-5.0) 3.2 mmol/L (3.5-5.0) 3.1 mmol/L (3.5-5.0) Bedside Ionized Calcium (Amilcar) 0.85 mmol/L (1.13-1.32) 1.34 mmol/L (1.13-1.32) 1.17 mmol/L (1.13-1.32) Bedside Hemoglobin (Calculated) 5.8 g/dL (12-15) 6.5 g/dL (12-15) Bedside Arterial pH 7.24 (7.35-7.45) 7.27 (7.35-7.45) Bedside Arterial pCO2 44 mmHg (35-45) 52 mmHg (35-45) Bedside Arterial pO2 317 mmHg (75-100) 416 mmHg (75-100) Bedside Arterial HCO3 19 mmol/L (21-28) 24 mmol/L (21-28) Bedside Arterial Total CO2 20 mmol/L (21-32) 25 mmol/L (21-32) Arterial Bld O2 Saturation (Measur) 100 % (95-99) 100 % (95-99) Bedside Arterial Blood Base Excess -9 mmol/L (0-3) -3 mmol/L (0-3) Test 03/08/18 19:36 03/08/18 19:40 03/08/18 20:00 03/08/18 23:40 Glucose (Fingerstick) 151 mg/dL (70-99) White Blood Count 6.0 x10^3/uL (4.0-11.0) 9.5 x10^3/uL (4.0-11.0) Red Blood Count 3.11 x10^6/uL (3.50-5.40) 2.01 x10^6/uL (3.50-5.40) Hemoglobin 9.4 g/dL (12.0-15.5) 6.2 g/dL (12.0-15.5) Hematocrit 26.9 % (36.0-47.0) 17.3 % (36.0-47.0) Mean Corpuscular Volume 87 fL (79-100) 86 fL (79-100) Mean Corpuscular Hemoglobin 30 pg (25-35) 31 pg (25-35) Mean Corpuscular Hemoglobin Concent 35 g/dL (31-37) 36 g/dL (31-37) Red Cell Distribution Width 14.7 % (11.5-14.5) 14.2 % (11.5-14.5) Platelet Count 43 x10^3/uL (140-400) 154 x10^3/uL (140-400) Neutrophils (%) (Auto) 81 % (31-73) Lymphocytes (%) (Auto) 12 % (24-48) Monocytes (%) (Auto) 7 % (0-9) Eosinophils (%) (Auto) 0 % (0-3) Basophils (%) (Auto) 0 % (0-3) Neutrophils # (Auto) 4.9 x10^3uL (1.8-7.7) Lymphocytes # (Auto) 0.7 x10^3/uL (1.0-4.8) Monocytes # (Auto) 0.4 x10^3/uL (0.0-1.1) Eosinophils # (Auto) 0.0 x10^3/uL (0.0-0.7) Basophils # (Auto) 0.0 x10^3/uL (0.0-0.2) Platelet Estimate Decreased (ADEQUATE) Prothrombin Time 19.2 SEC (11.7-14.0) Prothromb Time International Ratio 1.6 (0.8-1.1) Sodium Level 158 mmol/L (136-145) Potassium Level 3.3 mmol/L (3.5-5.1) Chloride Level 120 mmol/L (98-107) Carbon Dioxide Level 24 mmol/L (21-32) Anion Gap 14 (6-14) Blood Urea Nitrogen 13 mg/dL (7-20) Creatinine 0.6 mg/dL (0.6-1.0) Estimated GFR (Cockcroft-Gault) 98.8 BUN/Creatinine Ratio 22 (6-20) Glucose Level 192 mg/dL (70-99) Calcium Level 9.7 mg/dL (8.5-10.1) Total Bilirubin 1.1 mg/dL (0.2-1.0) Aspartate Amino Transf (AST/SGOT) 26 U/L (15-37) Alanine Aminotransferase (ALT/SGPT) 24 U/L (14-59) Alkaline Phosphatase 39 U/L (46-116) Total Protein 4.0 g/dL (6.4-8.2) Albumin 2.4 g/dL (3.4-5.0) Albumin/Globulin Ratio 1.5 (1.0-1.7) O2 Saturation 98 % (92-99) Arterial Blood pH 7.35 (7.35-7.45) Arterial Blood pH (Temp corrected) 7.38 Arterial Blood pCO2 at Patient Temp 42 mmHg (35-46) Arterial Blood pCO2 (Temp correct) 38 mmHg Arterial Blood pO2 at Patient Temp 145 mmHg (65-108) Arterial Blood pO2 (Temp corrected) 132 mmHg Arterial Blood HCO3 23 mmol/L (21-28) Arterial Blood Base Excess -3 mmol/L (-3-3) FiO2 50 Test 03/09/18 00:42 03/09/18 02:59 03/09/18 05:50 03/09/18 08:33 White Blood Count 10.2 x10^3/uL (4.0-11.0) 8.9 x10^3/uL (4.0-11.0) Red Blood Count 2.11 x10^6/uL (3.50-5.40) 4.50 x10^6/uL (3.50-5.40) Hemoglobin 6.5 g/dL (12.0-15.5) 13.6 g/dL (12.0-15.5) Hematocrit 18.2 % (36.0-47.0) 39.2 % (36.0-47.0) Mean Corpuscular Volume 86 fL (79-100) 87 fL (79-100) Mean Corpuscular Hemoglobin 31 pg (25-35) 30 pg (25-35) Mean Corpuscular Hemoglobin Concent 36 g/dL (31-37) 35 g/dL (31-37) Red Cell Distribution Width 14.5 % (11.5-14.5) 14.9 % (11.5-14.5) Platelet Count 160 x10^3/uL (140-400) 79 x10^3/uL (140-400) Neutrophils (%) (Auto) 76 % (31-73) 73 % (31-73) Lymphocytes (%) (Auto) 16 % (24-48) 19 % (24-48) Monocytes (%) (Auto) 8 % (0-9) 8 % (0-9) Eosinophils (%) (Auto) 0 % (0-3) 0 % (0-3) Basophils (%) (Auto) 0 % (0-3) 0 % (0-3) Neutrophils # (Auto) 7.8 x10^3uL (1.8-7.7) 6.5 x10^3uL (1.8-7.7) Lymphocytes # (Auto) 1.7 x10^3/uL (1.0-4.8) 1.7 x10^3/uL (1.0-4.8) Monocytes # (Auto) 0.8 x10^3/uL (0.0-1.1) 0.7 x10^3/uL (0.0-1.1) Eosinophils # (Auto) 0.0 x10^3/uL (0.0-0.7) 0.0 x10^3/uL (0.0-0.7) Basophils # (Auto) 0.0 x10^3/uL (0.0-0.2) 0.0 x10^3/uL (0.0-0.2) Prothrombin Time 19.2 SEC (11.7-14.0) Prothromb Time International Ratio 1.6 (0.8-1.1) Fibrinogen 130 mg/dL (200-440) Sodium Level 157 mmol/L (136-145) 153 mmol/L (136-145) Potassium Level 4.1 mmol/L (3.5-5.1) 3.5 mmol/L (3.5-5.1) Chloride Level 119 mmol/L (98-107) 118 mmol/L (98-107) Carbon Dioxide Level 23 mmol/L (21-32) 24 mmol/L (21-32) Anion Gap 15 (6-14) 11 (6-14) Blood Urea Nitrogen 17 mg/dL (7-20) 18 mg/dL (7-20) Creatinine 0.7 mg/dL (0.6-1.0) 0.7 mg/dL (0.6-1.0) Estimated GFR (Cockcroft-Gault) 82.7 82.7 Glucose Level 187 mg/dL (70-99) 190 mg/dL (70-99) 155 mg/dL (70-99) Calcium Level 9.0 mg/dL (8.5-10.1) 8.4 mg/dL (8.5-10.1) Bedside Hemoglobin (Calculated) 7.8 g/dL (12-15) Bedside Hematocrit 23 % (36-40) Bedside Arterial pH 7.34 (7.35-7.45) Arterial Blood pH (Temp corrected) 7.35 Bedside Arterial pCO2 38 mmHg (35-45) Arterial Blood pCO2 (Temp correct) 36 mmHg Bedside Arterial pO2 313 mmHg (75-100) Arterial Blood pO2 (Temp corrected) 308 mmHg Bedside Arterial HCO3 20 mmol/L (21-28) Bedside Arterial Total CO2 22 mmol/L (21-32) Arterial Bld O2 Saturation (Measur) 100 % (95-99) Bedside Arterial Blood Base Excess -5 mmol/L (0-3) Bedside FiO2 100.0 Bedside Sodium 153 mmol/L (135-145) Bedside Potassium 3.7 mmol/L (3.5-5.0) Bedside Ionized Calcium (Amilcar) 1.08 mmol/L (1.13-1.32) Phosphorus Level 3.7 mg/dL (2.6-4.7) Magnesium Level 1.2 mg/dL (1.8-2.4) O2 Saturation 97 % (92-99) Arterial Blood pH 7.42 (7.35-7.45) Arterial Blood pCO2 at Patient Temp 34 mmHg (35-46) Arterial Blood pO2 at Patient Temp 106 mmHg (65-108) Arterial Blood HCO3 22 mmol/L (21-28) Arterial Blood Base Excess -2 mmol/L (-3-3) FiO2 50% Test 03/09/18 10:40 White Blood Count 10.8 x10^3/uL (4.0-11.0) Red Blood Count 4.33 x10^6/uL (3.50-5.40) Hemoglobin 13.4 g/dL (12.0-15.5) Hematocrit 37.5 % (36.0-47.0) Mean Corpuscular Volume 87 fL (79-100) Mean Corpuscular Hemoglobin 31 pg (25-35) Mean Corpuscular Hemoglobin Concent 36 g/dL (31-37) Red Cell Distribution Width 15.1 % (11.5-14.5) Platelet Count 79 x10^3/uL (140-400) Neutrophils (%) (Auto) 70 % (31-73) Lymphocytes (%) (Auto) 20 % (24-48) Monocytes (%) (Auto) 10 % (0-9) Eosinophils (%) (Auto) 0 % (0-3) Basophils (%) (Auto) 0 % (0-3) Neutrophils # (Auto) 7.5 x10^3uL (1.8-7.7) Lymphocytes # (Auto) 2.1 x10^3/uL (1.0-4.8) Monocytes # (Auto) 1.1 x10^3/uL (0.0-1.1) Eosinophils # (Auto) 0.0 x10^3/uL (0.0-0.7) Basophils # (Auto) 0.0 x10^3/uL (0.0-0.2) Prothrombin Time 13.8 SEC (11.7-14.0) Prothromb Time International Ratio 1.1 (0.8-1.1) Fibrinogen 217 mg/dL (200-440) TAI MONTNAEZ MD Mar 09, 2018 13:33
[2018-03-09] MEDS ORDERED: MAGNESIUM SULFATE 2GM 50 ML IV PRN (13:45)
--- NOTE | 2018-03-09 13:52 | PDOC ---
PROGRESS NOTES Chief Complaint Chief Complaint Acute blood loss anemia - 2/2 gastric varices bleeding s/p Splenectomy, gastrotomy with control of varices, G-tube placement 03/08 and clots evacuation on 03/09 HCC - s/p surgical resection Hypotension - Hypokalemia - Hyperglycemia - Elevated INR better hypomagnesemia hypernatremia plan: fu with gi, sx talked to at bedside talked to [employer], add pressors given bp low again on protonix drip, dc octreotid as per gi ivf change to k+ d5 repeat labs q6-8hs gi ppx cc time 35min History of Present Illness History of Present Illness coming for hematemesis, and hematochezia EGD 03/08 wo active bleeding failed IR then sx Splenectomy, gastrotomy with control of varices, G-tube placement 03/08, blood clots evacuation 03/09 intubated, sedated 03/09: low BP ,still has dark bloody liquid from G tube significant amount Vitals Vitals Vital Signs Date Time Temp Pulse Resp B/P (MAP) Pulse Ox O2 Delivery O2 Flow Rate FiO2 03/09/18 13:00 99.3 75 16 99/47 (64) 100 Ventilator 99.3 03/08/18 15:44 2.0 Physical Exam Physical Exam intubated, sedated General: Other (sedated) Heart: Regular rate, Normal S1, Normal S2 Lungs: Clear Abdomen: Soft, Other (distended, gorge bloody, g tube bloody drainage, decrased bs ) Extremities: No clubbing, No cyanosis Skin: No rashes, No breakdown Labs LABS Laboratory Tests Test 03/08/18 14:53 03/08/18 16:35 03/08/18 17:01 03/08/18 18:57 White Blood Count 15.0 x10^3/uL (4.0-11.0) Red Blood Count 3.65 x10^6/uL (3.50-5.40) Hemoglobin 10.9 g/dL (12.0-15.5) Hematocrit 31.6 % (36.0-47.0) Mean Corpuscular Volume 87 fL (79-100) Mean Corpuscular Hemoglobin 30 pg (25-35) Mean Corpuscular Hemoglobin Concent 35 g/dL (31-37) Red Cell Distribution Width 15.4 % (11.5-14.5) Platelet Count 102 x10^3/uL (140-400) Neutrophils (%) (Auto) 77 % (31-73) Lymphocytes (%) (Auto) 18 % (24-48) Monocytes (%) (Auto) 4 % (0-9) Eosinophils (%) (Auto) 0 % (0-3) Basophils (%) (Auto) 1 % (0-3) Neutrophils # (Auto) 11.5 x10^3uL (1.8-7.7) Lymphocytes # (Auto) 2.7 x10^3/uL (1.0-4.8) Monocytes # (Auto) 0.6 x10^3/uL (0.0-1.1) Eosinophils # (Auto) 0.0 x10^3/uL (0.0-0.7) Basophils # (Auto) 0.1 x10^3/uL (0.0-0.2) Prothrombin Time 16.8 SEC (11.7-14.0) Prothromb Time International Ratio 1.4 (0.8-1.1) Activated Partial Thromboplast Time 38 SEC (24-38) Fibrinogen 207 mg/dL (200-440) Sodium Level 144 mmol/L (136-145) Potassium Level 4.0 mmol/L (3.5-5.1) Chloride Level 112 mmol/L (98-107) Carbon Dioxide Level 19 mmol/L (21-32) Anion Gap 13 (6-14) Blood Urea Nitrogen 16 mg/dL (7-20) Creatinine 0.7 mg/dL (0.6-1.0) Estimated GFR (Cockcroft-Gault) 82.7 Glucose Level 206 mg/dL (70-99) 207 mg/dL (70-99) 220 mg/dL (70-99) 194 mg/dL (70-99) Calcium Level 7.1 mg/dL (8.5-10.1) Ionized Calcium 0.84 mmol/L (1.13-1.32) Bedside Hematocrit 15 % (36-40) 17 % (36-40) 19 % (36-40) Arterial Blood pH (Temp corrected) 7.23 7.24 7.28 Arterial Blood pCO2 (Temp correct) 38 mmHg 44 mmHg 49 mmHg Arterial Blood pO2 (Temp corrected) 327 mmHg 317 mmHg 411 mmHg Bedside Venous pH 7.23 (7.32-7.42) Bedside Venous pCO2 38 mmHg (41-51) Bedside Venous pO2 327 mmHg (20-40) Bedside Venous HCO3 16 mmol/L (24-28) Bedside Venous Blood Total CO2 17 mmol/L (21-32) Bedside Venous Blood O2 Saturation 100 % Bedside Venous Blood Base Excess -12 mmol/L (0-3) POC Venous Hemoglobin (Calc) 5.1 g/dL (12-15) Bedside FiO2 100 100.0 100.0 Bedside Sodium 147 mmol/L (135-145) 151 mmol/L (135-145) 155 mmol/L (135-145) Bedside Potassium 3.9 mmol/L (3.5-5.0) 3.2 mmol/L (3.5-5.0) 3.1 mmol/L (3.5-5.0) Bedside Ionized Calcium (Amilcar) 0.85 mmol/L (1.13-1.32) 1.34 mmol/L (1.13-1.32) 1.17 mmol/L (1.13-1.32) Bedside Hemoglobin (Calculated) 5.8 g/dL (12-15) 6.5 g/dL (12-15) Bedside Arterial pH 7.24 (7.35-7.45) 7.27 (7.35-7.45) Bedside Arterial pCO2 44 mmHg (35-45) 52 mmHg (35-45) Bedside Arterial pO2 317 mmHg (75-100) 416 mmHg (75-100) Bedside Arterial HCO3 19 mmol/L (21-28) 24 mmol/L (21-28) Bedside Arterial Total CO2 20 mmol/L (21-32) 25 mmol/L (21-32) Arterial Bld O2 Saturation (Measur) 100 % (95-99) 100 % (95-99) Bedside Arterial Blood Base Excess -9 mmol/L (0-3) -3 mmol/L (0-3) Test 03/08/18 19:36 03/08/18 19:40 03/08/18 20:00 03/08/18 23:40 Glucose (Fingerstick) 151 mg/dL (70-99) White Blood Count 6.0 x10^3/uL (4.0-11.0) 9.5 x10^3/uL (4.0-11.0) Red Blood Count 3.11 x10^6/uL (3.50-5.40) 2.01 x10^6/uL (3.50-5.40) Hemoglobin 9.4 g/dL (12.0-15.5) 6.2 g/dL (12.0-15.5) Hematocrit 26.9 % (36.0-47.0) 17.3 % (36.0-47.0) Mean Corpuscular Volume 87 fL (79-100) 86 fL (79-100) Mean Corpuscular Hemoglobin 30 pg (25-35) 31 pg (25-35) Mean Corpuscular Hemoglobin Concent 35 g/dL (31-37) 36 g/dL (31-37) Red Cell Distribution Width 14.7 % (11.5-14.5) 14.2 % (11.5-14.5) Platelet Count 43 x10^3/uL (140-400) 154 x10^3/uL (140-400) Neutrophils (%) (Auto) 81 % (31-73) Lymphocytes (%) (Auto) 12 % (24-48) Monocytes (%) (Auto) 7 % (0-9) Eosinophils (%) (Auto) 0 % (0-3) Basophils (%) (Auto) 0 % (0-3) Neutrophils # (Auto) 4.9 x10^3uL (1.8-7.7) Lymphocytes # (Auto) 0.7 x10^3/uL (1.0-4.8) Monocytes # (Auto) 0.4 x10^3/uL (0.0-1.1) Eosinophils # (Auto) 0.0 x10^3/uL (0.0-0.7) Basophils # (Auto) 0.0 x10^3/uL (0.0-0.2) Platelet Estimate Decreased (ADEQUATE) Prothrombin Time 19.2 SEC (11.7-14.0) Prothromb Time International Ratio 1.6 (0.8-1.1) Sodium Level 158 mmol/L (136-145) Potassium Level 3.3 mmol/L (3.5-5.1) Chloride Level 120 mmol/L (98-107) Carbon Dioxide Level 24 mmol/L (21-32) Anion Gap 14 (6-14) Blood Urea Nitrogen 13 mg/dL (7-20) Creatinine 0.6 mg/dL (0.6-1.0) Estimated GFR (Cockcroft-Gault) 98.8 BUN/Creatinine Ratio 22 (6-20) Glucose Level 192 mg/dL (70-99) Calcium Level 9.7 mg/dL (8.5-10.1) Total Bilirubin 1.1 mg/dL (0.2-1.0) Aspartate Amino Transf (AST/SGOT) 26 U/L (15-37) Alanine Aminotransferase (ALT/SGPT) 24 U/L (14-59) Alkaline Phosphatase 39 U/L (46-116) Total Protein 4.0 g/dL (6.4-8.2) Albumin 2.4 g/dL (3.4-5.0) Albumin/Globulin Ratio 1.5 (1.0-1.7) O2 Saturation 98 % (92-99) Arterial Blood pH 7.35 (7.35-7.45) Arterial Blood pH (Temp corrected) 7.38 Arterial Blood pCO2 at Patient Temp 42 mmHg (35-46) Arterial Blood pCO2 (Temp correct) 38 mmHg Arterial Blood pO2 at Patient Temp 145 mmHg (65-108) Arterial Blood pO2 (Temp corrected) 132 mmHg Arterial Blood HCO3 23 mmol/L (21-28) Arterial Blood Base Excess -3 mmol/L (-3-3) FiO2 50 Test 03/09/18 00:42 03/09/18 02:59 03/09/18 05:50 03/09/18 08:33 White Blood Count 10.2 x10^3/uL (4.0-11.0) 8.9 x10^3/uL (4.0-11.0) Red Blood Count 2.11 x10^6/uL (3.50-5.40) 4.50 x10^6/uL (3.50-5.40) Hemoglobin 6.5 g/dL (12.0-15.5) 13.6 g/dL (12.0-15.5) Hematocrit 18.2 % (36.0-47.0) 39.2 % (36.0-47.0) Mean Corpuscular Volume 86 fL (79-100) 87 fL (79-100) Mean Corpuscular Hemoglobin 31 pg (25-35) 30 pg (25-35) Mean Corpuscular Hemoglobin Concent 36 g/dL (31-37) 35 g/dL (31-37) Red Cell Distribution Width 14.5 % (11.5-14.5) 14.9 % (11.5-14.5) Platelet Count 160 x10^3/uL (140-400) 79 x10^3/uL (140-400) Neutrophils (%) (Auto) 76 % (31-73) 73 % (31-73) Lymphocytes (%) (Auto) 16 % (24-48) 19 % (24-48) Monocytes (%) (Auto) 8 % (0-9) 8 % (0-9) Eosinophils (%) (Auto) 0 % (0-3) 0 % (0-3) Basophils (%) (Auto) 0 % (0-3) 0 % (0-3) Neutrophils # (Auto) 7.8 x10^3uL (1.8-7.7) 6.5 x10^3uL (1.8-7.7) Lymphocytes # (Auto) 1.7 x10^3/uL (1.0-4.8) 1.7 x10^3/uL (1.0-4.8) Monocytes # (Auto) 0.8 x10^3/uL (0.0-1.1) 0.7 x10^3/uL (0.0-1.1) Eosinophils # (Auto) 0.0 x10^3/uL (0.0-0.7) 0.0 x10^3/uL (0.0-0.7) Basophils # (Auto) 0.0 x10^3/uL (0.0-0.2) 0.0 x10^3/uL (0.0-0.2) Prothrombin Time 19.2 SEC (11.7-14.0) Prothromb Time International Ratio 1.6 (0.8-1.1) Fibrinogen 130 mg/dL (200-440) Sodium Level 157 mmol/L (136-145) 153 mmol/L (136-145) Potassium Level 4.1 mmol/L (3.5-5.1) 3.5 mmol/L (3.5-5.1) Chloride Level 119 mmol/L (98-107) 118 mmol/L (98-107) Carbon Dioxide Level 23 mmol/L (21-32) 24 mmol/L (21-32) Anion Gap 15 (6-14) 11 (6-14) Blood Urea Nitrogen 17 mg/dL (7-20) 18 mg/dL (7-20) Creatinine 0.7 mg/dL (0.6-1.0) 0.7 mg/dL (0.6-1.0) Estimated GFR (Cockcroft-Gault) 82.7 82.7 Glucose Level 187 mg/dL (70-99) 190 mg/dL (70-99) 155 mg/dL (70-99) Calcium Level 9.0 mg/dL (8.5-10.1) 8.4 mg/dL (8.5-10.1) Bedside Hemoglobin (Calculated) 7.8 g/dL (12-15) Bedside Hematocrit 23 % (36-40) Bedside Arterial pH 7.34 (7.35-7.45) Arterial Blood pH (Temp corrected) 7.35 Bedside Arterial pCO2 38 mmHg (35-45) Arterial Blood pCO2 (Temp correct) 36 mmHg Bedside Arterial pO2 313 mmHg (75-100) Arterial Blood pO2 (Temp corrected) 308 mmHg Bedside Arterial HCO3 20 mmol/L (21-28) Bedside Arterial Total CO2 22 mmol/L (21-32) Arterial Bld O2 Saturation (Measur) 100 % (95-99) Bedside Arterial Blood Base Excess -5 mmol/L (0-3) Bedside FiO2 100.0 Bedside Sodium 153 mmol/L (135-145) Bedside Potassium 3.7 mmol/L (3.5-5.0) Bedside Ionized Calcium (Amilcar) 1.08 mmol/L (1.13-1.32) Phosphorus Level 3.7 mg/dL (2.6-4.7) Magnesium Level 1.2 mg/dL (1.8-2.4) O2 Saturation 97 % (92-99) Arterial Blood pH 7.42 (7.35-7.45) Arterial Blood pCO2 at Patient Temp 34 mmHg (35-46) Arterial Blood pO2 at Patient Temp 106 mmHg (65-108) Arterial Blood HCO3 22 mmol/L (21-28) Arterial Blood Base Excess -2 mmol/L (-3-3) FiO2 50% Test 03/09/18 10:40 White Blood Count 10.8 x10^3/uL (4.0-11.0) Red Blood Count 4.33 x10^6/uL (3.50-5.40) Hemoglobin 13.4 g/dL (12.0-15.5) Hematocrit 37.5 % (36.0-47.0) Mean Corpuscular Volume 87 fL (79-100) Mean Corpuscular Hemoglobin 31 pg (25-35) Mean Corpuscular Hemoglobin Concent 36 g/dL (31-37) Red Cell Distribution Width 15.1 % (11.5-14.5) Platelet Count 79 x10^3/uL (140-400) Neutrophils (%) (Auto) 70 % (31-73) Lymphocytes (%) (Auto) 20 % (24-48) Monocytes (%) (Auto) 10 % (0-9) Eosinophils (%) (Auto) 0 % (0-3) Basophils (%) (Auto) 0 % (0-3) Neutrophils # (Auto) 7.5 x10^3uL (1.8-7.7) Lymphocytes # (Auto) 2.1 x10^3/uL (1.0-4.8) Monocytes # (Auto) 1.1 x10^3/uL (0.0-1.1) Eosinophils # (Auto) 0.0 x10^3/uL (0.0-0.7) Basophils # (Auto) 0.0 x10^3/uL (0.0-0.2) Prothrombin Time 13.8 SEC (11.7-14.0) Prothromb Time International Ratio 1.1 (0.8-1.1) Fibrinogen 217 mg/dL (200-440) Assessment and Plan Assessmemt and Plan Problems Medical Problems: (1) Hypotension Status: Acute Comment Review of Relevant I have reviewed the following items scottie (where applicable) has been applied. Labs Laboratory Tests Test 03/07/18 18:40 03/07/18 19:11 03/07/18 21:08 03/07/18 22:30 Prothrombin Time 14.3 SEC (11.7-14.0) Prothromb Time International Ratio 1.1 (0.8-1.1) Sodium Level 143 mmol/L (136-145) Potassium Level 3.4 mmol/L (3.5-5.1) Chloride Level 109 mmol/L (98-107) Carbon Dioxide Level 22 mmol/L (21-32) Anion Gap 12 (6-14) Blood Urea Nitrogen 9 mg/dL (7-20) Creatinine 0.8 mg/dL (0.6-1.0) Estimated GFR (Cockcroft-Gault) 70.9 BUN/Creatinine Ratio 11 (6-20) Glucose Level 155 mg/dL (70-99) Calcium Level 8.4 mg/dL (8.5-10.1) Total Bilirubin 0.4 mg/dL (0.2-1.0) Aspartate Amino Transf (AST/SGOT) 73 U/L (15-37) Alanine Aminotransferase (ALT/SGPT) 47 U/L (14-59) Alkaline Phosphatase 280 U/L (46-116) Troponin I Quantitative < 0.017 ng/mL (0.000-0.055) 0.022 ng/mL (0.000-0.055) Total Protein 9.3 g/dL (6.4-8.2) Albumin 2.0 g/dL (3.4-5.0) Albumin/Globulin Ratio 0.3 (1.0-1.7) White Blood Count 8.2 x10^3/uL (4.0-11.0) Red Blood Count 2.16 x10^6/uL (3.50-5.40) Hemoglobin 6.7 g/dL (12.0-15.5) Hematocrit 19.4 % (36.0-47.0) Mean Corpuscular Volume 90 fL (79-100) Mean Corpuscular Hemoglobin 31 pg (25-35) Mean Corpuscular Hemoglobin Concent 35 g/dL (31-37) Red Cell Distribution Width 16.8 % (11.5-14.5) Platelet Count 151 x10^3/uL (140-400) Neutrophils (%) (Auto) 58 % (31-73) Lymphocytes (%) (Auto) 32 % (24-48) Monocytes (%) (Auto) 8 % (0-9) Eosinophils (%) (Auto) 2 % (0-3) Basophils (%) (Auto) 0 % (0-3) Neutrophils # (Auto) 4.7 x10^3uL (1.8-7.7) Lymphocytes # (Auto) 2.6 x10^3/uL (1.0-4.8) Monocytes # (Auto) 0.7 x10^3/uL (0.0-1.1) Eosinophils # (Auto) 0.1 x10^3/uL (0.0-0.7) Basophils # (Auto) 0.0 x10^3/uL (0.0-0.2) Nasal Screen MRSA (PCR) Positive (Negative) Test 03/07/18 22:40 03/08/18 04:10 03/08/18 05:00 03/08/18 12:10 White Blood Count 6.6 x10^3/uL (4.0-11.0) 6.2 x10^3/uL (4.0-11.0) 7.4 x10^3/uL (4.0-11.0) Red Blood Count 3.02 x10^6/uL (3.50-5.40) 2.48 x10^6/uL (3.50-5.40) 2.10 x10^6/uL (3.50-5.40) Hemoglobin 9.3 g/dL (12.0-15.5) 7.8 g/dL (12.0-15.5) 6.4 g/dL (12.0-15.5) Hematocrit 26.6 % (36.0-47.0) 21.6 % (36.0-47.0) 18.3 % (36.0-47.0) Mean Corpuscular Volume 88 fL (79-100) 87 fL (79-100) 87 fL (79-100) Mean Corpuscular Hemoglobin 31 pg (25-35) 32 pg (25-35) 31 pg (25-35) Mean Corpuscular Hemoglobin Concent 35 g/dL (31-37) 36 g/dL (31-37) 35 g/dL (31-37) Red Cell Distribution Width 15.6 % (11.5-14.5) 15.6 % (11.5-14.5) 16.0 % (11.5-14.5) Platelet Count 121 x10^3/uL (140-400) 111 x10^3/uL (140-400) 119 x10^3/uL (140-400) Sodium Level 145 mmol/L (136-145) Potassium Level 4.1 mmol/L (3.5-5.1) Chloride Level 116 mmol/L (98-107) Carbon Dioxide Level 20 mmol/L (21-32) Anion Gap 9 (6-14) Blood Urea Nitrogen 11 mg/dL (7-20) Creatinine 0.6 mg/dL (0.6-1.0) Estimated GFR (Cockcroft-Gault) 98.8 BUN/Creatinine Ratio 18 (6-20) Glucose Level 116 mg/dL (70-99) Calcium Level 6.8 mg/dL (8.5-10.1) Total Bilirubin 0.6 mg/dL (0.2-1.0) Aspartate Amino Transf (AST/SGOT) 50 U/L (15-37) Alanine Aminotransferase (ALT/SGPT) 32 U/L (14-59) Alkaline Phosphatase 166 U/L (46-116) Total Protein 6.1 g/dL (6.4-8.2) Albumin 1.3 g/dL (3.4-5.0) Albumin/Globulin Ratio 0.3 (1.0-1.7) Neutrophils (%) (Auto) 59 % (31-73) Lymphocytes (%) (Auto) 31 % (24-48) Monocytes (%) (Auto) 9 % (0-9) Eosinophils (%) (Auto) 0 % (0-3) Basophils (%) (Auto) 0 % (0-3) Neutrophils # (Auto) 3.7 x10^3uL (1.8-7.7) Lymphocytes # (Auto) 1.9 x10^3/uL (1.0-4.8) Monocytes # (Auto) 0.6 x10^3/uL (0.0-1.1) Eosinophils # (Auto) 0.0 x10^3/uL (0.0-0.7) Basophils # (Auto) 0.0 x10^3/uL (0.0-0.2) Prothrombin Time 17.4 SEC (11.7-14.0) 18.2 SEC (11.7-14.0) Prothromb Time International Ratio 1.5 (0.8-1.1) 1.5 (0.8-1.1) Test 03/08/18 14:53 03/08/18 16:35 03/08/18 17:01 03/08/18 18:57 White Blood Count 15.0 x10^3/uL (4.0-11.0) Red Blood Count 3.65 x10^6/uL (3.50-5.40) Hemoglobin 10.9 g/dL (12.0-15.5) Hematocrit 31.6 % (36.0-47.0) Mean Corpuscular Volume 87 fL (79-100) Mean Corpuscular Hemoglobin 30 pg (25-35) Mean Corpuscular Hemoglobin Concent 35 g/dL (31-37) Red Cell Distribution Width 15.4 % (11.5-14.5) Platelet Count 102 x10^3/uL (140-400) Neutrophils (%) (Auto) 77 % (31-73) Lymphocytes (%) (Auto) 18 % (24-48) Monocytes (%) (Auto) 4 % (0-9) Eosinophils (%) (Auto) 0 % (0-3) Basophils (%) (Auto) 1 % (0-3) Neutrophils # (Auto) 11.5 x10^3uL (1.8-7.7) Lymphocytes # (Auto) 2.7 x10^3/uL (1.0-4.8) Monocytes # (Auto) 0.6 x10^3/uL (0.0-1.1) Eosinophils # (Auto) 0.0 x10^3/uL (0.0-0.7) Basophils # (Auto) 0.1 x10^3/uL (0.0-0.2) Prothrombin Time 16.8 SEC (11.7-14.0) Prothromb Time International Ratio 1.4 (0.8-1.1) Activated Partial Thromboplast Time 38 SEC (24-38) Fibrinogen 207 mg/dL (200-440) Sodium Level 144 mmol/L (136-145) Potassium Level 4.0 mmol/L (3.5-5.1) Chloride Level 112 mmol/L (98-107) Carbon Dioxide Level 19 mmol/L (21-32) Anion Gap 13 (6-14) Blood Urea Nitrogen 16 mg/dL (7-20) Creatinine 0.7 mg/dL (0.6-1.0) Estimated GFR (Cockcroft-Gault) 82.7 Glucose Level 206 mg/dL (70-99) 207 mg/dL (70-99) 220 mg/dL (70-99) 194 mg/dL (70-99) Calcium Level 7.1 mg/dL (8.5-10.1) Ionized Calcium 0.84 mmol/L (1.13-1.32) Bedside Hematocrit 15 % (36-40) 17 % (36-40) 19 % (36-40) Arterial Blood pH (Temp corrected) 7.23 7.24 7.28 Arterial Blood pCO2 (Temp correct) 38 mmHg 44 mmHg 49 mmHg Arterial Blood pO2 (Temp corrected) 327 mmHg 317 mmHg 411 mmHg Bedside Venous pH 7.23 (7.32-7.42) Bedside Venous pCO2 38 mmHg (41-51) Bedside Venous pO2 327 mmHg (20-40) Bedside Venous HCO3 16 mmol/L (24-28) Bedside Venous Blood Total CO2 17 mmol/L (21-32) Bedside Venous Blood O2 Saturation 100 % Bedside Venous Blood Base Excess -12 mmol/L (0-3) POC Venous Hemoglobin (Calc) 5.1 g/dL (12-15) Bedside FiO2 100 100.0 100.0 Bedside Sodium 147 mmol/L (135-145) 151 mmol/L (135-145) 155 mmol/L (135-145) Bedside Potassium 3.9 mmol/L (3.5-5.0) 3.2 mmol/L (3.5-5.0) 3.1 mmol/L (3.5-5.0) Bedside Ionized Calcium (Amilcar) 0.85 mmol/L (1.13-1.32) 1.34 mmol/L (1.13-1.32) 1.17 mmol/L (1.13-1.32) Bedside Hemoglobin (Calculated) 5.8 g/dL (12-15) 6.5 g/dL (12-15) Bedside Arterial pH 7.24 (7.35-7.45) 7.27 (7.35-7.45) Bedside Arterial pCO2 44 mmHg (35-45) 52 mmHg (35-45) Bedside Arterial pO2 317 mmHg (75-100) 416 mmHg (75-100) Bedside Arterial HCO3 19 mmol/L (21-28) 24 mmol/L (21-28) Bedside Arterial Total CO2 20 mmol/L (21-32) 25 mmol/L (21-32) Arterial Bld O2 Saturation (Measur) 100 % (95-99) 100 % (95-99) Bedside Arterial Blood Base Excess -9 mmol/L (0-3) -3 mmol/L (0-3) Test 03/08/18 19:36 03/08/18 19:40 03/08/18 20:00 03/08/18 23:40 Glucose (Fingerstick) 151 mg/dL (70-99) White Blood Count 6.0 x10^3/uL (4.0-11.0) 9.5 x10^3/uL (4.0-11.0) Red Blood Count 3.11 x10^6/uL (3.50-5.40) 2.01 x10^6/uL (3.50-5.40) Hemoglobin 9.4 g/dL (12.0-15.5) 6.2 g/dL (12.0-15.5) Hematocrit 26.9 % (36.0-47.0) 17.3 % (36.0-47.0) Mean Corpuscular Volume 87 fL (79-100) 86 fL (79-100) Mean Corpuscular Hemoglobin 30 pg (25-35) 31 pg (25-35) Mean Corpuscular Hemoglobin Concent 35 g/dL (31-37) 36 g/dL (31-37) Red Cell Distribution Width 14.7 % (11.5-14.5) 14.2 % (11.5-14.5) Platelet Count 43 x10^3/uL (140-400) 154 x10^3/uL (140-400) Neutrophils (%) (Auto) 81 % (31-73) Lymphocytes (%) (Auto) 12 % (24-48) Monocytes (%) (Auto) 7 % (0-9) Eosinophils (%) (Auto) 0 % (0-3) Basophils (%) (Auto) 0 % (0-3) Neutrophils # (Auto) 4.9 x10^3uL (1.8-7.7) Lymphocytes # (Auto) 0.7 x10^3/uL (1.0-4.8) Monocytes # (Auto) 0.4 x10^3/uL (0.0-1.1) Eosinophils # (Auto) 0.0 x10^3/uL (0.0-0.7) Basophils # (Auto) 0.0 x10^3/uL (0.0-0.2) Platelet Estimate Decreased (ADEQUATE) Prothrombin Time 19.2 SEC (11.7-14.0) Prothromb Time International Ratio 1.6 (0.8-1.1) Sodium Level 158 mmol/L (136-145) Potassium Level 3.3 mmol/L (3.5-5.1) Chloride Level 120 mmol/L (98-107) Carbon Dioxide Level 24 mmol/L (21-32) Anion Gap 14 (6-14) Blood Urea Nitrogen 13 mg/dL (7-20) Creatinine 0.6 mg/dL (0.6-1.0) Estimated GFR (Cockcroft-Gault) 98.8 BUN/Creatinine Ratio 22 (6-20) Glucose Level 192 mg/dL (70-99) Calcium Level 9.7 mg/dL (8.5-10.1) Total Bilirubin 1.1 mg/dL (0.2-1.0) Aspartate Amino Transf (AST/SGOT) 26 U/L (15-37) Alanine Aminotransferase (ALT/SGPT) 24 U/L (14-59) Alkaline Phosphatase 39 U/L (46-116) Total Protein 4.0 g/dL (6.4-8.2) Albumin 2.4 g/dL (3.4-5.0) Albumin/Globulin Ratio 1.5 (1.0-1.7) O2 Saturation 98 % (92-99) Arterial Blood pH 7.35 (7.35-7.45) Arterial Blood pH (Temp corrected) 7.38 Arterial Blood pCO2 at Patient Temp 42 mmHg (35-46) Arterial Blood pCO2 (Temp correct) 38 mmHg Arterial Blood pO2 at Patient Temp 145 mmHg (65-108) Arterial Blood pO2 (Temp corrected) 132 mmHg Arterial Blood HCO3 23 mmol/L (21-28) Arterial Blood Base Excess -3 mmol/L (-3-3) FiO2 50 Test 03/09/18 00:42 03/09/18 02:59 03/09/18 05:50 03/09/18 08:33 White Blood Count 10.2 x10^3/uL (4.0-11.0) 8.9 x10^3/uL (4.0-11.0) Red Blood Count 2.11 x10^6/uL (3.50-5.40) 4.50 x10^6/uL (3.50-5.40) Hemoglobin 6.5 g/dL (12.0-15.5) 13.6 g/dL (12.0-15.5) Hematocrit 18.2 % (36.0-47.0) 39.2 % (36.0-47.0) Mean Corpuscular Volume 86 fL (79-100) 87 fL (79-100) Mean Corpuscular Hemoglobin 31 pg (25-35) 30 pg (25-35) Mean Corpuscular Hemoglobin Concent 36 g/dL (31-37) 35 g/dL (31-37) Red Cell Distribution Width 14.5 % (11.5-14.5) 14.9 % (11.5-14.5) Platelet Count 160 x10^3/uL (140-400) 79 x10^3/uL (140-400) Neutrophils (%) (Auto) 76 % (31-73) 73 % (31-73) Lymphocytes (%) (Auto) 16 % (24-48) 19 % (24-48) Monocytes (%) (Auto) 8 % (0-9) 8 % (0-9) Eosinophils (%) (Auto) 0 % (0-3) 0 % (0-3) Basophils (%) (Auto) 0 % (0-3) 0 % (0-3) Neutrophils # (Auto) 7.8 x10^3uL (1.8-7.7) 6.5 x10^3uL (1.8-7.7) Lymphocytes # (Auto) 1.7 x10^3/uL (1.0-4.8) 1.7 x10^3/uL (1.0-4.8) Monocytes # (Auto) 0.8 x10^3/uL (0.0-1.1) 0.7 x10^3/uL (0.0-1.1) Eosinophils # (Auto) 0.0 x10^3/uL (0.0-0.7) 0.0 x10^3/uL (0.0-0.7) Basophils # (Auto) 0.0 x10^3/uL (0.0-0.2) 0.0 x10^3/uL (0.0-0.2) Prothrombin Time 19.2 SEC (11.7-14.0) Prothromb Time International Ratio 1.6 (0.8-1.1) Fibrinogen 130 mg/dL (200-440) Sodium Level 157 mmol/L (136-145) 153 mmol/L (136-145) Potassium Level 4.1 mmol/L (3.5-5.1) 3.5 mmol/L (3.5-5.1) Chloride Level 119 mmol/L (98-107) 118 mmol/L (98-107) Carbon Dioxide Level 23 mmol/L (21-32) 24 mmol/L (21-32) Anion Gap 15 (6-14) 11 (6-14) Blood Urea Nitrogen 17 mg/dL (7-20) 18 mg/dL (7-20) Creatinine 0.7 mg/dL (0.6-1.0) 0.7 mg/dL (0.6-1.0) Estimated GFR (Cockcroft-Gault) 82.7 82.7 Glucose Level 187 mg/dL (70-99) 190 mg/dL (70-99) 155 mg/dL (70-99) Calcium Level 9.0 mg/dL (8.5-10.1) 8.4 mg/dL (8.5-10.1) Bedside Hemoglobin (Calculated) 7.8 g/dL (12-15) Bedside Hematocrit 23 % (36-40) Bedside Arterial pH 7.34 (7.35-7.45) Arterial Blood pH (Temp corrected) 7.35 Bedside Arterial pCO2 38 mmHg (35-45) Arterial Blood pCO2 (Temp correct) 36 mmHg Bedside Arterial pO2 313 mmHg (75-100) Arterial Blood pO2 (Temp corrected) 308 mmHg Bedside Arterial HCO3 20 mmol/L (21-28) Bedside Arterial Total CO2 22 mmol/L (21-32) Arterial Bld O2 Saturation (Measur) 100 % (95-99) Bedside Arterial Blood Base Excess -5 mmol/L (0-3) Bedside FiO2 100.0 Bedside Sodium 153 mmol/L (135-145) Bedside Potassium 3.7 mmol/L (3.5-5.0) Bedside Ionized Calcium (Amilcar) 1.08 mmol/L (1.13-1.32) Phosphorus Level 3.7 mg/dL (2.6-4.7) Magnesium Level 1.2 mg/dL (1.8-2.4) O2 Saturation 97 % (92-99) Arterial Blood pH 7.42 (7.35-7.45) Arterial Blood pCO2 at Patient Temp 34 mmHg (35-46) Arterial Blood pO2 at Patient Temp 106 mmHg (65-108) Arterial Blood HCO3 22 mmol/L (21-28) Arterial Blood Base Excess -2 mmol/L (-3-3) FiO2 50% Test 03/09/18 10:40 White Blood Count 10.8 x10^3/uL (4.0-11.0) Red Blood Count 4.33 x10^6/uL (3.50-5.40) Hemoglobin 13.4 g/dL (12.0-15.5) Hematocrit 37.5 % (36.0-47.0) Mean Corpuscular Volume 87 fL (79-100) Mean Corpuscular Hemoglobin 31 pg (25-35) Mean Corpuscular Hemoglobin Concent 36 g/dL (31-37) Red Cell Distribution Width 15.1 % (11.5-14.5) Platelet Count 79 x10^3/uL (140-400) Neutrophils (%) (Auto) 70 % (31-73) Lymphocytes (%) (Auto) 20 % (24-48) Monocytes (%) (Auto) 10 % (0-9) Eosinophils (%) (Auto) 0 % (0-3) Basophils (%) (Auto) 0 % (0-3) Neutrophils # (Auto) 7.5 x10^3uL (1.8-7.7) Lymphocytes # (Auto) 2.1 x10^3/uL (1.0-4.8) Monocytes # (Auto) 1.1 x10^3/uL (0.0-1.1) Eosinophils # (Auto) 0.0 x10^3/uL (0.0-0.7) Basophils # (Auto) 0.0 x10^3/uL (0.0-0.2) Prothrombin Time 13.8 SEC (11.7-14.0) Prothromb Time International Ratio 1.1 (0.8-1.1) Fibrinogen 217 mg/dL (200-440) Laboratory Tests Test 03/08/18 14:53 03/08/18 16:35 03/08/18 17:01 03/08/18 18:57 White Blood Count 15.0 x10^3/uL (4.0-11.0) Red Blood Count 3.65 x10^6/uL (3.50-5.40) Hemoglobin 10.9 g/dL (12.0-15.5) Hematocrit 31.6 % (36.0-47.0) Mean Corpuscular Volume 87 fL (79-100) Mean Corpuscular Hemoglobin 30 pg (25-35) Mean Corpuscular Hemoglobin Concent 35 g/dL (31-37) Red Cell Distribution Width 15.4 % (11.5-14.5) Platelet Count 102 x10^3/uL (140-400) Neutrophils (%) (Auto) 77 % (31-73) Lymphocytes (%) (Auto) 18 % (24-48) Monocytes (%) (Auto) 4 % (0-9) Eosinophils (%) (Auto) 0 % (0-3) Basophils (%) (Auto) 1 % (0-3) Neutrophils # (Auto) 11.5 x10^3uL (1.8-7.7) Lymphocytes # (Auto) 2.7 x10^3/uL (1.0-4.8) Monocytes # (Auto) 0.6 x10^3/uL (0.0-1.1) Eosinophils # (Auto) 0.0 x10^3/uL (0.0-0.7) Basophils # (Auto) 0.1 x10^3/uL (0.0-0.2) Prothrombin Time 16.8 SEC (11.7-14.0) Prothromb Time International Ratio 1.4 (0.8-1.1) Activated Partial Thromboplast Time 38 SEC (24-38) Fibrinogen 207 mg/dL (200-440) Sodium Level 144 mmol/L (136-145) Potassium Level 4.0 mmol/L (3.5-5.1) Chloride Level 112 mmol/L (98-107) Carbon Dioxide Level 19 mmol/L (21-32) Anion Gap 13 (6-14) Blood Urea Nitrogen 16 mg/dL (7-20) Creatinine 0.7 mg/dL (0.6-1.0) Estimated GFR (Cockcroft-Gault) 82.7 Glucose Level 206 mg/dL (70-99) 207 mg/dL (70-99) 220 mg/dL (70-99) 194 mg/dL (70-99) Calcium Level 7.1 mg/dL (8.5-10.1) Ionized Calcium 0.84 mmol/L (1.13-1.32) Bedside Hematocrit 15 % (36-40) 17 % (36-40) 19 % (36-40) Arterial Blood pH (Temp corrected) 7.23 7.24 7.28 Arterial Blood pCO2 (Temp correct) 38 mmHg 44 mmHg 49 mmHg Arterial Blood pO2 (Temp corrected) 327 mmHg 317 mmHg 411 mmHg Bedside Venous pH 7.23 (7.32-7.42) Bedside Venous pCO2 38 mmHg (41-51) Bedside Venous pO2 327 mmHg (20-40) Bedside Venous HCO3 16 mmol/L (24-28) Bedside Venous Blood Total CO2 17 mmol/L (21-32) Bedside Venous Blood O2 Saturation 100 % Bedside Venous Blood Base Excess -12 mmol/L (0-3) POC Venous Hemoglobin (Calc) 5.1 g/dL (12-15) Bedside FiO2 100 100.0 100.0 Bedside Sodium 147 mmol/L (135-145) 151 mmol/L (135-145) 155 mmol/L (135-145) Bedside Potassium 3.9 mmol/L (3.5-5.0) 3.2 mmol/L (3.5-5.0) 3.1 mmol/L (3.5-5.0) Bedside Ionized Calcium (Amilcar) 0.85 mmol/L (1.13-1.32) 1.34 mmol/L (1.13-1.32) 1.17 mmol/L (1.13-1.32) Bedside Hemoglobin (Calculated) 5.8 g/dL (12-15) 6.5 g/dL (12-15) Bedside Arterial pH 7.24 (7.35-7.45) 7.27 (7.35-7.45) Bedside Arterial pCO2 44 mmHg (35-45) 52 mmHg (35-45) Bedside Arterial pO2 317 mmHg (75-100) 416 mmHg (75-100) Bedside Arterial HCO3 19 mmol/L (21-28) 24 mmol/L (21-28) Bedside Arterial Total CO2 20 mmol/L (21-32) 25 mmol/L (21-32) Arterial Bld O2 Saturation (Measur) 100 % (95-99) 100 % (95-99) Bedside Arterial Blood Base Excess -9 mmol/L (0-3) -3 mmol/L (0-3) Test 03/08/18 19:36 03/08/18 19:40 03/08/18 20:00 03/08/18 23:40 Glucose (Fingerstick) 151 mg/dL (70-99) White Blood Count 6.0 x10^3/uL (4.0-11.0) 9.5 x10^3/uL (4.0-11.0) Red Blood Count 3.11 x10^6/uL (3.50-5.40) 2.01 x10^6/uL (3.50-5.40) Hemoglobin 9.4 g/dL (12.0-15.5) 6.2 g/dL (12.0-15.5) Hematocrit 26.9 % (36.0-47.0) 17.3 % (36.0-47.0) Mean Corpuscular Volume 87 fL (79-100) 86 fL (79-100) Mean Corpuscular Hemoglobin 30 pg (25-35) 31 pg (25-35) Mean Corpuscular Hemoglobin Concent 35 g/dL (31-37) 36 g/dL (31-37) Red Cell Distribution Width 14.7 % (11.5-14.5) 14.2 % (11.5-14.5) Platelet Count 43 x10^3/uL (140-400) 154 x10^3/uL (140-400) Neutrophils (%) (Auto) 81 % (31-73) Lymphocytes (%) (Auto) 12 % (24-48) Monocytes (%) (Auto) 7 % (0-9) Eosinophils (%) (Auto) 0 % (0-3) Basophils (%) (Auto) 0 % (0-3) Neutrophils # (Auto) 4.9 x10^3uL (1.8-7.7) Lymphocytes # (Auto) 0.7 x10^3/uL (1.0-4.8) Monocytes # (Auto) 0.4 x10^3/uL (0.0-1.1) Eosinophils # (Auto) 0.0 x10^3/uL (0.0-0.7) Basophils # (Auto) 0.0 x10^3/uL (0.0-0.2) Platelet Estimate Decreased (ADEQUATE) Prothrombin Time 19.2 SEC (11.7-14.0) Prothromb Time International Ratio 1.6 (0.8-1.1) Sodium Level 158 mmol/L (136-145) Potassium Level 3.3 mmol/L (3.5-5.1) Chloride Level 120 mmol/L (98-107) Carbon Dioxide Level 24 mmol/L (21-32) Anion Gap 14 (6-14) Blood Urea Nitrogen 13 mg/dL (7-20) Creatinine 0.6 mg/dL (0.6-1.0) Estimated GFR (Cockcroft-Gault) 98.8 BUN/Creatinine Ratio 22 (6-20) Glucose Level 192 mg/dL (70-99) Calcium Level 9.7 mg/dL (8.5-10.1) Total Bilirubin 1.1 mg/dL (0.2-1.0) Aspartate Amino Transf (AST/SGOT) 26 U/L (15-37) Alanine Aminotransferase (ALT/SGPT) 24 U/L (14-59) Alkaline Phosphatase 39 U/L (46-116) Total Protein 4.0 g/dL (6.4-8.2) Albumin 2.4 g/dL (3.4-5.0) Albumin/Globulin Ratio 1.5 (1.0-1.7) O2 Saturation 98 % (92-99) Arterial Blood pH 7.35 (7.35-7.45) Arterial Blood pH (Temp corrected) 7.38 Arterial Blood pCO2 at Patient Temp 42 mmHg (35-46) Arterial Blood pCO2 (Temp correct) 38 mmHg Arterial Blood pO2 at Patient Temp 145 mmHg (65-108) Arterial Blood pO2 (Temp corrected) 132 mmHg Arterial Blood HCO3 23 mmol/L (21-28) Arterial Blood Base Excess -3 mmol/L (-3-3) FiO2 50 Test 03/09/18 00:42 03/09/18 02:59 03/09/18 05:50 03/09/18 08:33 White Blood Count 10.2 x10^3/uL (4.0-11.0) 8.9 x10^3/uL (4.0-11.0) Red Blood Count 2.11 x10^6/uL (3.50-5.40) 4.50 x10^6/uL (3.50-5.40) Hemoglobin 6.5 g/dL (12.0-15.5) 13.6 g/dL (12.0-15.5) Hematocrit 18.2 % (36.0-47.0) 39.2 % (36.0-47.0) Mean Corpuscular Volume 86 fL (79-100) 87 fL (79-100) Mean Corpuscular Hemoglobin 31 pg (25-35) 30 pg (25-35) Mean Corpuscular Hemoglobin Concent 36 g/dL (31-37) 35 g/dL (31-37) Red Cell Distribution Width 14.5 % (11.5-14.5) 14.9 % (11.5-14.5) Platelet Count 160 x10^3/uL (140-400) 79 x10^3/uL (140-400) Neutrophils (%) (Auto) 76 % (31-73) 73 % (31-73) Lymphocytes (%) (Auto) 16 % (24-48) 19 % (24-48) Monocytes (%) (Auto) 8 % (0-9) 8 % (0-9) Eosinophils (%) (Auto) 0 % (0-3) 0 % (0-3) Basophils (%) (Auto) 0 % (0-3) 0 % (0-3) Neutrophils # (Auto) 7.8 x10^3uL (1.8-7.7) 6.5 x10^3uL (1.8-7.7) Lymphocytes # (Auto) 1.7 x10^3/uL (1.0-4.8) 1.7 x10^3/uL (1.0-4.8) Monocytes # (Auto) 0.8 x10^3/uL (0.0-1.1) 0.7 x10^3/uL (0.0-1.1) Eosinophils # (Auto) 0.0 x10^3/uL (0.0-0.7) 0.0 x10^3/uL (0.0-0.7) Basophils # (Auto) 0.0 x10^3/uL (0.0-0.2) 0.0 x10^3/uL (0.0-0.2) Prothrombin Time 19.2 SEC (11.7-14.0) Prothromb Time International Ratio 1.6 (0.8-1.1) Fibrinogen 130 mg/dL (200-440) Sodium Level 157 mmol/L (136-145) 153 mmol/L (136-145) Potassium Level 4.1 mmol/L (3.5-5.1) 3.5 mmol/L (3.5-5.1) Chloride Level 119 mmol/L (98-107) 118 mmol/L (98-107) Carbon Dioxide Level 23 mmol/L (21-32) 24 mmol/L (21-32) Anion Gap 15 (6-14) 11 (6-14) Blood Urea Nitrogen 17 mg/dL (7-20) 18 mg/dL (7-20) Creatinine 0.7 mg/dL (0.6-1.0) 0.7 mg/dL (0.6-1.0) Estimated GFR (Cockcroft-Gault) 82.7 82.7 Glucose Level 187 mg/dL (70-99) 190 mg/dL (70-99) 155 mg/dL (70-99) Calcium Level 9.0 mg/dL (8.5-10.1) 8.4 mg/dL (8.5-10.1) Bedside Hemoglobin (Calculated) 7.8 g/dL (12-15) Bedside Hematocrit 23 % (36-40) Bedside Arterial pH 7.34 (7.35-7.45) Arterial Blood pH (Temp corrected) 7.35 Bedside Arterial pCO2 38 mmHg (35-45) Arterial Blood pCO2 (Temp correct) 36 mmHg Bedside Arterial pO2 313 mmHg (75-100) Arterial Blood pO2 (Temp corrected) 308 mmHg Bedside Arterial HCO3 20 mmol/L (21-28) Bedside Arterial Total CO2 22 mmol/L (21-32) Arterial Bld O2 Saturation (Measur) 100 % (95-99) Bedside Arterial Blood Base Excess -5 mmol/L (0-3) Bedside FiO2 100.0 Bedside Sodium 153 mmol/L (135-145) Bedside Potassium 3.7 mmol/L (3.5-5.0) Bedside Ionized Calcium (Amilcar) 1.08 mmol/L (1.13-1.32) Phosphorus Level 3.7 mg/dL (2.6-4.7) Magnesium Level 1.2 mg/dL (1.8-2.4) O2 Saturation 97 % (92-99) Arterial Blood pH 7.42 (7.35-7.45) Arterial Blood pCO2 at Patient Temp 34 mmHg (35-46) Arterial Blood pO2 at Patient Temp 106 mmHg (65-108) Arterial Blood HCO3 22 mmol/L (21-28) Arterial Blood Base Excess -2 mmol/L (-3-3) FiO2 50% Test 03/09/18 10:40 White Blood Count 10.8 x10^3/uL (4.0-11.0) Red Blood Count 4.33 x10^6/uL (3.50-5.40) Hemoglobin 13.4 g/dL (12.0-15.5) Hematocrit 37.5 % (36.0-47.0) Mean Corpuscular Volume 87 fL (79-100) Mean Corpuscular Hemoglobin 31 pg (25-35) Mean Corpuscular Hemoglobin Concent 36 g/dL (31-37) Red Cell Distribution Width 15.1 % (11.5-14.5) Platelet Count 79 x10^3/uL (140-400) Neutrophils (%) (Auto) 70 % (31-73) Lymphocytes (%) (Auto) 20 % (24-48) Monocytes (%) (Auto) 10 % (0-9) Eosinophils (%) (Auto) 0 % (0-3) Basophils (%) (Auto) 0 % (0-3) Neutrophils # (Auto) 7.5 x10^3uL (1.8-7.7) Lymphocytes # (Auto) 2.1 x10^3/uL (1.0-4.8) Monocytes # (Auto) 1.1 x10^3/uL (0.0-1.1) Eosinophils # (Auto) 0.0 x10^3/uL (0.0-0.7) Basophils # (Auto) 0.0 x10^3/uL (0.0-0.2) Prothrombin Time 13.8 SEC (11.7-14.0) Prothromb Time International Ratio 1.1 (0.8-1.1) Fibrinogen 217 mg/dL (200-440) Medications Current Medications Sodium Chloride 500 ml @ 500 mls/hr Q1H IV Last administered on 03/07/18at 18: 29; Start 03/07/18 at 18:30; Stop 03/07/18 at 18:42; Status DC Pantoprazole Sodium (PROTONIX VIAL for IV PUSH) 80 mg 1X ONCE IVP Last administered on 03/07/18at 19:00; Start 03/07/18 at 18:30; Stop 03/07/18 at 18 :32; Status DC Octreotide Acetate 500 mcg/ Sodium Chloride 101 ml @ 5.05 mls/hr CONT PRN IV SEE I/O RECORD Last administered on 03/09/18at 10:38; Start 03/07/18 at 19:30; Stop 03/09/18 at 11:47; Status DC Ondansetron HCl (Zofran) 4 mg PRN Q8HRS PRN IV NAUSEA/VOMITING; Start at 19:15; Stop 03/08/18 at 19:14; Status DC Iohexol (Omnipaque 300 Mg/ml) 75 ml 1X ONCE IV Last administered on at 20:32; Start 03/07/18 at 19:15; Stop 03/07/18 at 19:16; Status DC Info (CONTRAST GIVEN -- Rx MONITORING) 1 each PRN DAILY PRN MC SEE COMMENTS; Start 03/07/18 at 19:15; Stop 03/09/18 at 19:14 Propofol 20 ml @ As Directed STK-MED ONCE IV ; Start 03/07/18 at 22:37; Stop 03/07/18 at 22:38; Status DC Pantoprazole Sodium 80 mg/ Sodium Chloride 100 ml @ 10 mls/hr Q10H IV Last administered on 03/09/18at 07:50; Start 03/07/18 at 23:00 Ringer's Solution 1,000 ml @ 200 mls/hr Q5H IV Last administered on at 20:41; Start 03/07/18 at 23:15; Stop 03/09/18 at 10:58; Status DC Dopamine HCl/ Dextrose 250 ml @ 4.461 mls/ hr CONT PRN IV SEE I/O RECORD; Start 03/08/18 at 09:30 Lidocaine/Sodium Bicarbonate (Buffered Lidocaine 1%) 3 ml STK-MED ONCE .ROUTE ; Start 03/08/18 at 11:47; Stop 03/08/18 at 11:48; Status DC Iohexol (Omnipaque 300 Mg/ml) 100 ml STK-MED ONCE .ROUTE ; Start 03/08/18 at 11 :47; Stop 03/08/18 at 11:48; Status DC Heparin Sodium/ Sodium Chloride 1,000 ml @ As Directed STK-MED ONCE .ROUTE ; Start 03/08/18 at 11:47; Stop 03/08/18 at 11:48; Status DC Midazolam HCl (Versed) 2 mg STK-MED ONCE .ROUTE ; Start 03/08/18 at 12:06; Stop 03/08/18 at 12:07; Status DC Fentanyl Citrate (Fentanyl 2ml Vial) 100 mcg STK-MED ONCE .ROUTE ; Start at 12:06; Stop 03/08/18 at 12:07; Status DC Heparin Sodium/ Sodium Chloride (HEPARIN for ARTERIAL LINE FLUSH) 1,000 unit 1X ONCE IART Last administered on 03/08/18at 12:30; Start 03/08/18 at 12:30; Stop 03/08/18 at 12:31; Status DC Lidocaine/Sodium Bicarbonate (Buffered Lidocaine 1%) 3 ml 1X ONCE IJ Last administered on 03/08/18at 12:15; Start 03/08/18 at 12:15; Stop 03/08/18 at 12 :21; Status DC Midazolam HCl (Versed) 2 mg 1X ONCE IV ; Start 03/08/18 at 12:15; Stop at 12:21; Status DC Fentanyl Citrate (Fentanyl 2ml Vial) 100 mcg 1X ONCE IV Last administered on 03/08/18at 12:15; Start 03/08/18 at 12:15; Stop 03/08/18 at 12:21; Status DC Iohexol (Omnipaque 300 Mg/ml) 100 ml 1X ONCE IART Last administered on at 12:15; Start 03/08/18 at 12:15; Stop 03/08/18 at 12:21; Status DC Phenylephrine HCl (Wander-Synephrine Inj) 10 mg STK-MED ONCE .ROUTE ; Start at 13:25; Stop 03/08/18 at 13:26; Status DC Succinylcholine Chloride (Anectine) 200 mg STK-MED ONCE .ROUTE ; Start at 14:55; Stop 03/08/18 at 14:56; Status DC Propofol 20 ml @ As Directed STK-MED ONCE IV ; Start 03/08/18 at 14:55; Stop 03/08/18 at 14:56; Status DC Ketamine HCl (Ketamine) 50 mg STK-MED ONCE .ROUTE ; Start 03/08/18 at 14:55; Stop 03/08/18 at 14:57; Status DC Dexamethasone Sodium Phosphate (Decadron) 20 mg STK-MED ONCE .ROUTE ; Start at 14:56; Stop 03/08/18 at 14:58; Status DC Ondansetron HCl (Zofran) 4 mg STK-MED ONCE .ROUTE ; Start 03/08/18 at 14:57; Stop 03/08/18 at 14:58; Status DC Lidocaine HCl (Lidocaine Pf 2% Vial) 5 ml STK-MED ONCE .ROUTE ; Start 03/08/18 at 14:57; Stop 03/08/18 at 14:58; Status DC Propofol 20 ml @ As Directed STK-MED ONCE IV ; Start 03/08/18 at 14:57; Stop 03/08/18 at 14:58; Status DC Fentanyl Citrate (Fentanyl 5ml Vial) 250 mcg STK-MED ONCE .ROUTE ; Start at 15:54; Stop 03/08/18 at 15:55; Status DC Rocuronium Nicollet (Zemuron) 100 mg STK-MED ONCE .ROUTE ; Start 03/08/18 at 15: 55; Stop 03/08/18 at 15:57; Status DC Cefazolin Sodium 100 ml @ As Directed STK-MED ONCE IV ; Start 03/08/18 at 15: 57; Stop 03/08/18 at 15:59; Status DC Cellulose (Surgicel Hemostat 4x8) 1 each STK-MED ONCE .ROUTE Last administered on 03/08/18at 15:53; Start 03/08/18 at 16:27; Stop 03/08/18 at 16:28; Status DC Cellulose (Surgicel Hemostat 2x3) 1 each STK-MED ONCE .ROUTE Last administered on 03/08/18at 15:53; Start 03/08/18 at 16:42; Stop 03/08/18 at 16:44; Status DC Cellulose (Surgicel Hemostat 2x14) 1 each STK-MED ONCE .ROUTE ; Start 03/08/18 at 16:42; Stop 03/08/18 at 16:44; Status DC Cellulose (Surgicel Hemostat 4x8) 1 each STK-MED ONCE .ROUTE Last administered on 03/08/18at 15:53; Start 03/08/18 at 16:42; Stop 03/08/18 at 16:44; Status DC Calcium Chloride (Calcium Chloride) 1,000 mg STK-MED ONCE .ROUTE ; Start at 17:03; Stop 03/08/18 at 17:04; Status DC Calcium Chloride (Calcium Chloride) 1,000 mg STK-MED ONCE .ROUTE ; Start at 17:03; Stop 03/08/18 at 17:04; Status DC Sodium Bicarbonate (Sodium Bicarb Adult 8.4% Syr) 50 meq STK-MED ONCE .ROUTE ; Start 03/08/18 at 17:03; Stop 03/08/18 at 17:04; Status DC Sodium Bicarbonate (Sodium Bicarb Adult 8.4% Syr) 50 meq STK-MED ONCE .ROUTE ; Start 03/08/18 at 17:03; Stop 03/08/18 at 17:04; Status DC Epinephrine HCl (EPINEPHrine SYRINGE) 1 mg STK-MED ONCE .ROUTE ; Start at 17:03; Stop 03/08/18 at 17:04; Status DC Albumin Human 500 ml @ As Directed STK-MED ONCE IV ; Start 03/08/18 at 17:03; Stop 03/08/18 at 17:04; Status DC Sodium Bicarbonate (Sodium Bicarb Adult 8.4% Syr) 50 meq STK-MED ONCE .ROUTE ; Start 03/08/18 at 17:07; Stop 03/08/18 at 17:08; Status DC Sodium Bicarbonate (Sodium Bicarb Adult 8.4% Syr) 50 meq STK-MED ONCE .ROUTE ; Start 03/08/18 at 17:07; Stop 03/08/18 at 17:08; Status DC Cellulose (Surgicel Hemostat 4x8) 1 each STK-MED ONCE TP Last administered on 03/08/18at 15:53; Start 03/08/18 at 15:53; Stop 03/08/18 at 17:40; Status DC Sodium Bicarbonate (Sodium Bicarb Adult 8.4% Syr) 50 meq STK-MED ONCE .ROUTE ; Start 03/08/18 at 17:35; Stop 03/08/18 at 17:37; Status DC Calcium Chloride (Calcium Chloride) 1,000 mg STK-MED ONCE .ROUTE ; Start at 17:35; Stop 03/08/18 at 17:37; Status DC Albumin Human 500 ml @ As Directed STK-MED ONCE IV ; Start 03/08/18 at 17:41; Stop 03/08/18 at 17:43; Status DC Norepinephrine Bitartrate 250 ml @ 1.875 mls/ hr 1X ONCE IV Last administered on 03/08/18at 21:00; Start 03/08/18 at 17:45; Stop 03/09/18 at 08 :10; Status DC Vasopressin 40 unit/Dextrose 102 ml @ 6 mls/hr 1X ONCE IV Last administered on 03/08/18at 20:41; Start 03/08/18 at 18:00; Stop 03/09/18 at 10:59; Status DC Calcium Chloride (Calcium Chloride) 1,000 mg STK-MED ONCE .ROUTE ; Start at 17:57; Stop 03/08/18 at 17:59; Status DC Sodium Bicarbonate (Sodium Bicarb Adult 8.4% Syr) 50 meq STK-MED ONCE .ROUTE ; Start 03/08/18 at 18:04; Stop 03/08/18 at 18:06; Status DC Sodium Bicarbonate (Sodium Bicarb Adult 8.4% Syr) 50 meq STK-MED ONCE .ROUTE ; Start 03/08/18 at 18:05; Stop 03/08/18 at 18:06; Status DC Sodium Bicarbonate (Sodium Bicarb Adult 8.4% Syr) 50 meq STK-MED ONCE .ROUTE ; Start 03/08/18 at 18:07; Stop 03/08/18 at 18:08; Status DC Sodium Bicarbonate (Sodium Bicarb Adult 8.4% Syr) 50 meq STK-MED ONCE .ROUTE ; Start 03/08/18 at 18:07; Stop 03/08/18 at 18:08; Status DC Epinephrine HCl (EPINEPHrine SYRINGE) 1 mg STK-MED ONCE .ROUTE ; Start at 18:40; Stop 03/08/18 at 18:41; Status DC Prochlorperazine Edisylate (Compazine) 10 mg STK-MED ONCE .ROUTE ; Start at 18:42; Stop 03/08/18 at 18:44; Status DC Fentanyl Citrate (Fentanyl 2ml Vial) 100 mcg STK-MED ONCE .ROUTE ; Start at 18:43; Stop 03/08/18 at 18:44; Status DC Sevoflurane (Ultane) 90 ml STK-MED ONCE IH ; Start 03/08/18 at 18:48; Stop at 18:49; Status DC Cellulose (Surgicel Hemostat 2x3) 1 each STK-MED ONCE TP Last administered on 03/08/18at 15:55; Start 03/08/18 at 15:55; Stop 03/08/18 at 19:04; Status DC Cellulose (Surgicel Hemostat 2x3) 1 each STK-MED ONCE TP Last administered on 03/08/18at 15:53; Start 03/08/18 at 15:53; Stop 03/08/18 at 19:04; Status DC Propofol 100 ml @ As Directed STK-MED ONCE IV ; Start 03/08/18 at 19:56; Stop 03/08/18 at 19:58; Status DC Famotidine (Pepcid) 20 mg BID PO ; Start 03/08/18 at 21:00; Stop 03/09/18 at 08:11; Status DC Sodium Chloride (Normal Saline Flush) 3 ml QSHIFT PRN IV AFTER MEDS AND BLOOD DRAWS; Start 03/08/18 at 20:45 Morphine Sulfate (Morphine Sulfate) 1 mg PRN Q1HR PRN IV PAIN Last administered on 03/08/18at 21:12; Start 03/08/18 at 20:45 Ondansetron HCl (Zofran) 4 mg PRN Q6HRS PRN IV NAUESA, 1ST CHOICE; Start 03/08 at 20:45 Fentanyl Citrate 30 ml @ 0 mls/hr CONT PRN IV SEE PROTOCOL Last administered on 03/09/18at 11:27; Start 03/08/18 at 22:15 Fentanyl Citrate (Fentanyl 2ml Vial) 25 mcg PRN Q1HR PRN IV SEE COMMENTS; Start 03/08/18 at 22:15 Fentanyl Citrate (Fentanyl 2ml Vial) 50 mcg PRN Q1HR PRN IV SEE COMMENTS Last administered on 03/08/18at 22:41; Start 03/08/18 at 22:15 Chlorhexidine Gluconate (Peridex) 15 ml BID MM ; Start 03/09/18 at 09:00 Midazolam HCl 100 ml @ 0 mls/hr CONT PRN IV SEE PROTOCOL Last administered on 03/08/18at 22:52; Start 03/08/18 at 22:15 Factor IX (Pha) (Novoseven Rt) 1 mg 1X ONCE IV Last administered on at 01:09; Start 03/09/18 at 01:00; Stop 03/09/18 at 01:01; Status DC Lorazepam (Ativan) 2 mg STK-MED ONCE .ROUTE ; Start 03/09/18 at 01:15; Stop at 01:16; Status DC Norepinephrine Bitartrate 250 ml @ 1.875 mls/ hr CONT PRN IV SEE I/O RECORD; Start 03/09/18 at 01:45 Cefazolin Sodium/ Dextrose 50 ml @ 100 mls/hr 1X PREOP PRN IV PRIOR TO PROCEDURE Last administered on 03/09/18at 02:00; Start 03/09/18 at 02:00; Stop 03/10/18 at 01:59 Rocuronium [place] (Zemuron) 100 mg STK-MED ONCE .ROUTE ; Start 03/09/18 at 01: 57; Stop 03/09/18 at 01:59; Status DC Fentanyl Citrate (Fentanyl 5ml Vial) 250 mcg STK-MED ONCE .ROUTE ; Start at 02:13; Stop 03/09/18 at 02:14; Status DC Cellulose (Surgicel Hemostat 2x3) 1 each STK-MED ONCE .ROUTE ; Start 03/09/18 at 02:23; Stop 03/09/18 at 02:25; Status DC Cellulose (Surgicel Hemostat 2x14) 1 each STK-MED ONCE .ROUTE ; Start 03/09/18 at 02:23; Stop 03/09/18 at 02:25; Status DC Cellulose (Surgicel Hemostat 4x8) 1 each STK-MED ONCE .ROUTE Last administered on 03/09/18at 02:04; Start 03/09/18 at 02:23; Stop 03/09/18 at 02:25; Status DC Sodium Chloride (Normal Saline Flush) 3 ml QSHIFT PRN IV AFTER MEDS AND BLOOD DRAWS; Start 03/09/18 at 03:30 Cellulose (Surgicel Hemostat 4x8) 1 each STK-MED ONCE TP Last administered on 03/09/18at 02:04; Start 03/09/18 at 02:04; Stop 03/09/18 at 03:20; Status DC Cellulose (Surgicel Hemostat 4x8) 1 each STK-MED ONCE TP Last administered on 03/09/18at 02:04; Start 03/09/18 at 02:04; Stop 03/09/18 at 03:20; Status DC Sodium Bicarbonate (Sodium Bicarb Adult 8.4% Syr) 150 meq STK-MED ONCE .ROUTE ; Start 03/08/18 at 10:00; Stop 03/09/18 at 10:30; Status DC Dopamine HCl/ Dextrose (DOPamine 400MG/ 250ML PREMIX) 400 mg STK-MED ONCE IV ; Start 03/08/18 at 10:00; Stop 03/09/18 at 10:30; Status DC Potassium Chloride/Dextrose 1,000 ml @ 100 mls/hr Q10H IV Last administered on 03/09/18at 11:22; Start 03/09/18 at 11:00 Magnesium Sulfate/ Dextrose 100 ml @ 25 mls/hr 1X ONCE IV Last administered on 03/09/18at 13:45; Start 03/09/18 at 12:45; Stop 03/09/18 at 16:44 Potassium Chloride/Water 50 ml @ 50 mls/hr 1X ONCE IV Last administered on at 13:43; Start 03/09/18 at 12:45; Stop 03/09/18 at 13:44; Status DC Active Scripts Active Reported Prilosec Otc (Omeprazole Magnesium) 20 Mg Tablet. 1 Tab PO DAILY Simvastatin 20 Mg Tablet 1 Tab PO QHS Vitals/I & O Vital Sign - Last 24 Hours 03/08/18 03/08/18 03/08/18 03/08/18 15:44 20:00 21:00 21:01 Temp 94.2 95.1 94.2 95.1 Pulse 89 70 78 Resp 17 14 16 B/P (MAP) 156/74 (101) 104/62 (76) Pulse Ox 99 99 100 100 O2 Delivery Nasal Cannula Ventilator Ventilator Ventilator O2 Flow Rate 2.0 03/08/18 03/08/18 03/09/18 03/09/18 22:00 23:00 00:00 00:19 Temp 96.8 97.9 94.2 96.8 97.9 94.2 Pulse 80 88 70 Resp 16 16 14 B/P (MAP) 102/58 (73) 106/58 (74) 156/74 (101) Pulse Ox 100 100 99 100 O2 Delivery Ventilator Ventilator Ventilator Ventilator 03/09/18 03/09/18 03/09/18 03/09/18 01:00 04:00 05:00 05:34 Temp 98.9 97.9 98.9 97.9 Pulse 66 68 Resp 16 16 B/P (MAP) 186/88 (120) 116/62 (80) Pulse Ox 100 100 100 O2 Delivery Ventilator Ventilator Ventilator Ventilator 03/09/18 03/09/18 03/09/18 03/09/18 06:20 07:00 07:45 08:00 Temp 98.2 98.2 98.2 98.2 Pulse 71 78 Resp 16 16 B/P (MAP) 113/65 (81) 114/56 (75) Pulse Ox 100 100 O2 Delivery Ventilator Mechanical Ventilator Mechanical Ventilator 03/09/18 03/09/18 03/09/18 03/09/18 08:00 08:00 08:25 09:00 Temp 98.4 98.6 98.4 98.6 Pulse 79 79 76 Resp 16 16 B/P (MAP) 116/56 (76) 116/56 (76) 82/50 (61) Pulse Ox 100 100 100 O2 Delivery Ventilator Ventilator Ventilator 03/09/18 03/09/18 03/09/18 03/09/18 09:11 10:00 11:00 11:26 Temp 99.0 99.1 99.0 99.1 Pulse 74 75 Resp 16 16 B/P (MAP) 110/62 (78) 104/51 (68) Pulse Ox 100 100 100 100 O2 Delivery Ventilator Ventilator Ventilator Ventilator 03/09/18 03/09/18 03/09/18 03/09/18 11:27 11:57 12:00 12:00 Temp 99.3 99.3 Pulse 76 76 Resp 18 16 16 B/P (MAP) 115/53 (73) 115/53 (73) Pulse Ox 100 100 100 O2 Delivery Ventilator Ventilator Ventilator 03/09/18 03/09/18 03/09/18 12:00 12:41 13:00 Temp 99.3 99.3 Pulse 75 Resp 16 B/P (MAP) 99/47 (64) Pulse Ox 100 100 O2 Delivery Mechanical Ventilator Ventilator Ventilator Intake and Output 03/08/18 03/08/18 03/09/18 15:01 23:01 07:01 Intake Total 70 ml 80 ml 306 ml Output Total 525 ml 970 ml 1105 ml Balance -455 ml -890 ml -799 ml MIKE RAY MD Mar 09, 2018 13:52
[2018-03-09 14:54] LABS: HEMATOCRIT 36.5 % (36.0-47.0); HEMOGLOBIN 12.9 g/dL (12.0-15.5); RED BLOOD COUNT 4.2 x10^6/uL (3.50-5.40); WHITE BLOOD COUNT 12.6 x10^3/uL (4.0-11.0)
[2018-03-09 15:04] LABS: URIC ACID 4.6 mg/dL (2.6-6.0)
--- NOTE | 2018-03-09 15:31 | NUR ---
SS following for discharge planning. SS reviewed pt's chart and met with pt's RN. Pt is in [place] visiting her daughter and grandchildren with spouse and is from [place]. Pt's RN reported that pt has a history of liver cancer and has been in remission. Pt and spouse had there wedding anniversary on 03/06/2018. Pt remains in ICU on the vent. SS will continue to follow for discharge needs.
--- NOTE | 2018-03-09 15:32 | CARD ---
MR#: [id number] Date of Study: 03/09/2018 Ordering Physician: BRAXTON HUFFMAN, Referring Physician: JANE FIORE, Tech: Yelena Salinas DAYANA APPROVED REPORT EXAM: Two-dimensional and M-mode echocardiogram with Doppler and color Doppler. Other Information Quality : Good INDICATION Hypotension 2D DIMENSIONS RVDd2.2 (2.9-3.5cm)Left Atrium(2D)2.8 (1.6-4.0cm) IVSd0.8 (0.7-1.1cm)Aortic Root(2D)3.0 (2.0-3.7cm) LVDd4.4 (3.9-5.9cm)LVOT Diameter2.0 (1.8-2.4cm) PWd0.8 (0.7-1.1cm)LVDs2.5 (2.5-4.0cm) FS (%) 30.0 %SV66.4 ml LVEF(%)60.0 (>50%) Aortic Valve AoV Peak Phuc.143.2cm/sAoV VTI25.2cm AO Peak GR.8.2mmHgLVOT Peak Phuc.108.3cm/s AO Mean GR.4mmHgAVA (VMAX)2.28cm2 MARLON (VTI)2.50cm2 Mitral Valve MV E Xpuwjcmv39.8cm/sMV DECEL [id number] MV A Appdfjzw313.9cm/sE/A Ratio0.9 Tricuspid Valve TR P. Kguoxbhs173rx/sRAP [id number] TR Peak Gr.[id number] Pulmonary Vein S1 Iijoaaep24.3cm/sD2 Avdifnya73.5cm/s LEFT VENTRICLE The left ventricle is normal size. There is normal left ventricular wall thickness. The left ventricu lar systolic function is normal. The Ejection Fraction is 55-60%. There is normal LV segmental wall m otion. RIGHT VENTRICLE The right ventricle is normal size. The right ventricular systolic function is normal. ATRIA The left atrium size is normal. The right atrium size is normal. The interatrial septum is intact wit h no evidence for an atrial septal defect or patent foramen ovale as noted on 2-D or Doppler imaging. AORTIC VALVE The aortic valve is calcified but opens well. Doppler and Color Flow revealed no significant aortic r egurgitation. There is no significant aortic valvular stenosis. MITRAL VALVE The mitral valve is calcified but opens well. Mitral annular calcification is mild. There is no evide nce of mitral valve prolapse. There is no mitral valve stenosis. Doppler and Color Flow revealed no m itral valve regurgitation noted. TRICUSPID VALVE The tricuspid valve is normal in structure and function. Doppler and Color Flow revealed mild tricusp id regurgitation. The PA pressure was estimated at 27 mmHg. There is no tricuspid valve stenosis. PULMONIC VALVE The pulmonic valve is not well visualized. Doppler and Color Flow revealed trace pulmonic valvular re gurgitation. There is no pulmonic valvular stenosis. GREAT VESSELS The aortic root is normal in size. The ascending aorta is normal in size. The IVC is normal in size a nd collapses >50% with inspiration. PERICARDIAL EFFUSION There is no evidence of significant pericardial effusion. Critical Notification Critical Value: No <Conclusion> The left ventricular systolic function is normal. The Ejection Fraction is 55-60%. There is normal LV segmental wall motion. Doppler and Color Flow revealed mild tricuspid regurgitation. The PA pressure was estimated at 27 mmHg. There is no evidence of significant pericardial effusion. Signed by : Gurdeep Khan, Electronically Approved : 03/09/2018 15:31:00
[2018-03-09] MEDS: CHLORHEXIDINE 0.12% 15 ML MOUTHWASH. MM SCH ×2 (15:40→21:30)
--- NOTE | 2018-03-09 16:47 | RAD ---
Bilateral renal ultrasound complete 03/09/2018 Clinical indications: Acute renal failure COMPARISON: CT abdomen pelvis 03/07/2018 FINDINGS: There is a small right pleural effusion. There is a simple appearing cyst in the right lobe of the liver measuring up to 3.3 cm. Right kidney measures 11.3 cm is length without hydronephrosis or abnormal perinephric fluid collection. Left kidney measures 10.5 cm length without hydronephrosis or abnormal perinephric fluid collection. Urinary bladder is decompressed by Meek catheter. IMPRESSION: 1. Development of a small right pleural effusion. 2. Both kidneys present without hydronephrosis. 3. Simple right hepatic cyst. Electronically signed by: Jose Fontanez MD (03/09/2018 4:43 PM) [id number]
[2018-03-09 17:18] LABS: BILIRUBIN,URINE NEGATIVE (NEG); CLARITY,URINE CLEAR; COLOR,URINE YELLOW; NITRITE,URINE NEGATIVE (NEG); PROTEIN,URINE NEGATIVE (NEG-TRACE); UROBILINOGEN,URINE 0.2 mg/dL (0.2 mg/dL)
[2018-03-09 17:36] LABS: BACTERIA,URINE FEW /HPF (0-FEW); HYALINE CASTS, URINE FEW /HPF; SQUAMOUS EPITHELIAL CELL,UR FEW /LPF
[2018-03-09 18:38] LABS: MAGNESIUM 2.2 mg/dL (1.8-2.4); POTASSIUM 3.8 mmol/L (3.5-5.1)
--- NOTE | 2018-03-09 19:44 | NUR ---
Dr. Cardoza wanted to be notified of echo results--Dr. Cardoza paged and updated on results and patient condition. Orders received to give a 500 cc bolus NS Q6H PRN for U/O <30 cc/hr.
[2018-03-09] MEDS: MIDAZOLAM 100mg/100ml NS BAG 100 ML IV PRN (21:43)
[2018-03-09 22:01] LABS: HEMATOCRIT 38.8 % (36.0-47.0); HEMOGLOBIN 13.6 g/dL (12.0-15.5); RED BLOOD COUNT 4.46 x10^6/uL (3.50-5.40); RED CELL DISTRIBUTION WIDTH 15.3 % (11.5-14.5); WHITE BLOOD COUNT 15.9 x10^3/uL (4.0-11.0)
[2018-03-09 23:10] LABS: UR PROTEIN RD 15.2 mg/dL (Not Estab.)
[2018-03-10] VITALS (24 sets, daily range): BP systolic 100–129; BP diastolic 50–64
[2018-03-10] MEDS: IV NORMAL SALINE 500ML BAG 500 ML IV PRN ×2 (02:05→09:00)
[2018-03-10] MEDS: PANTOPRAZOLE SODIUM IV DRIP 80 MG in IV NORMAL SALINE 100ML 100 ML IV SCH ×3 (04:35→22:46)
[2018-03-10 06:10] LABS: ALBUMIN 2.1 g/dL (3.4-5.0); CALCIUM 7.7 mg/dL (8.5-10.1); CREATININE 0.6 mg/dL (0.6-1.0); GFR 98.8; PHOSPHORUS 2.5 mg/dL (2.6-4.7); POTASSIUM 3.9 mmol/L (3.5-5.1)
--- NOTE | 2018-03-10 07:46 | CONS ---
DATE OF CONSULTATION: REASON FOR CONSULTATION: Respiratory failure. HISTORY OF PRESENT ILLNESS: The patient is a 72-year-old female who has a past history of cirrhosis and hepatocellular carcinoma, status post resection, who was admitted to [facility] with hypotension. She had a significant GI bleed with hematemesis and hematochezia. She underwent endoscopy by Dr. Grayson who found blood, but no varices. She subsequently had Interventional Radiology participate in her care because of continued blood loss and hypotension. They were unable to access the patient's splenorenal shunt. She continued to have significant bleeding, and her hemoglobin fell significantly to 6. She then underwent emergency surgery by Dr. Alcala, who found that the patient had 1300 mL of blood, which was evacuated. There was some oozing that was cauterized. She has been on mechanical ventilation since then. She does not have any prior history of lung disease. She was not a smoker. PAST MEDICAL HISTORY: As noted above. She has had cirrhosis and hepatocellular carcinoma. PAST SURGICAL HISTORY: She had resection of her hepatocellular carcinoma. FAMILY HISTORY: Positive for diabetes. SOCIAL HISTORY: Negative for tobacco or alcohol. REVIEW OF SYSTEMS: Unobtainable. PHYSICAL EXAMINATION: GENERAL: Reveals a female who is sedated and on mechanical ventilation. VITAL SIGNS: Her temperature is 99. Her heart rate is 74 per minute and regular. Her respiratory rate is 16 and she is not assisting ventilation. Her blood pressure is 110/62, her oxygen saturation is 100%. HEENT: Unremarkable. CHEST: She has equal, good breath sounds without any rales, rhonchi, wheezes or rubs. CARDIOVASCULAR: Regular rate and rhythm without murmur or gallop. ABDOMEN: Tender. EXTREMITIES: There is no cyanosis, clubbing or edema. NEUROLOGIC: She is sedated. LABORATORY DATA: Her last blood gas this morning revealed a pH of 7.42, pCO2 of 34, pO2 of 106 on an FiO2 of 0.5. She had a chest x-ray done today. The endotracheal tube is in good position. She has a left lower lobe density that is compatible with atelectasis or infiltrate. Her hemoglobin this morning was 13.6. Her white blood cell count was 8900. IMPRESSION AND PLAN: 1. Respiratory failure. 2. Hypotension secondary to blood loss anemia. 3. Gastrointestinal bleeding. 4. Cirrhosis. PLAN: We will continue mechanical ventilation for now. I will decrease her FiO2 as tolerated. I believe that her left lower lobe density is more compatible with atelectasis, but if she does develop signs of infection such as purulent sputum, fever or leukocytosis, I would add antibiotics to her regimen. When she is stable from a GI and blood pressure standpoint, we will assess her for discontinuation of mechanical ventilation. I will follow along and adjust her ventilation as appropriate. If you have any questions, please do not hesitate to contact me. EBENEZER ECHEVERRIA MD DR: Sara JOB#: [id number] / [id number]
[2018-03-10] MEDS ORDERED: TPN PER PHARMACY MC PRN (09:00)
--- NOTE | 2018-03-10 09:01 | PDOC ---
PROGRESS NOTES Subjective Subjective intubated Objective Objective Vital Signs Date Time Temp Pulse Resp B/P (MAP) Pulse Ox O2 Delivery O2 Flow Rate FiO2 03/10/18 06:00 87 16 128/54 (78) 100 Ventilator 03/10/18 04:00 99.0 99.0 03/08/18 15:44 2.0 Intake and Output 03/10/18 07:01 Intake Total 3320 ml Output Total 3377 ml Balance -57 ml IV Total 3320 ml Output Urine Total 712 ml Gastric Drainage Total 500 ml Drainage Total 2165 ml Physical Exam Abdomen: Soft (TERE with thin serosang fluid) Assessment Assessment Problems Medical Problems: (1) Hypotension Status: Acute Plan Plan of Care Labs, vitals etc much improved today; no further signs of bleeding, off pressors; continue supportive measures Comment Review of Relevant I have reviewed the following items scottie (where applicable) has been applied. Labs Laboratory Tests Test 03/08/18 12:10 03/08/18 14:53 03/08/18 16:35 03/08/18 17:01 White Blood Count 7.4 x10^3/uL (4.0-11.0) 15.0 x10^3/uL (4.0-11.0) Red Blood Count 2.10 x10^6/uL (3.50-5.40) 3.65 x10^6/uL (3.50-5.40) Hemoglobin 6.4 g/dL (12.0-15.5) 10.9 g/dL (12.0-15.5) Hematocrit 18.3 % (36.0-47.0) 31.6 % (36.0-47.0) Mean Corpuscular Volume 87 fL (79-100) 87 fL (79-100) Mean Corpuscular Hemoglobin 31 pg (25-35) 30 pg (25-35) Mean Corpuscular Hemoglobin Concent 35 g/dL (31-37) 35 g/dL (31-37) Red Cell Distribution Width 16.0 % (11.5-14.5) 15.4 % (11.5-14.5) Platelet Count 119 x10^3/uL (140-400) 102 x10^3/uL (140-400) Prothrombin Time 18.2 SEC (11.7-14.0) 16.8 SEC (11.7-14.0) Prothromb Time International Ratio 1.5 (0.8-1.1) 1.4 (0.8-1.1) Neutrophils (%) (Auto) 77 % (31-73) Lymphocytes (%) (Auto) 18 % (24-48) Monocytes (%) (Auto) 4 % (0-9) Eosinophils (%) (Auto) 0 % (0-3) Basophils (%) (Auto) 1 % (0-3) Neutrophils # (Auto) 11.5 x10^3uL (1.8-7.7) Lymphocytes # (Auto) 2.7 x10^3/uL (1.0-4.8) Monocytes # (Auto) 0.6 x10^3/uL (0.0-1.1) Eosinophils # (Auto) 0.0 x10^3/uL (0.0-0.7) Basophils # (Auto) 0.1 x10^3/uL (0.0-0.2) Activated Partial Thromboplast Time 38 SEC (24-38) Fibrinogen 207 mg/dL (200-440) Sodium Level 144 mmol/L (136-145) Potassium Level 4.0 mmol/L (3.5-5.1) Chloride Level 112 mmol/L (98-107) Carbon Dioxide Level 19 mmol/L (21-32) Anion Gap 13 (6-14) Blood Urea Nitrogen 16 mg/dL (7-20) Creatinine 0.7 mg/dL (0.6-1.0) Estimated GFR (Cockcroft-Gault) 82.7 Glucose Level 206 mg/dL (70-99) 207 mg/dL (70-99) 220 mg/dL (70-99) Calcium Level 7.1 mg/dL (8.5-10.1) Ionized Calcium 0.84 mmol/L (1.13-1.32) Bedside Hematocrit 15 % (36-40) 17 % (36-40) Arterial Blood pH (Temp corrected) 7.23 7.24 Arterial Blood pCO2 (Temp correct) 38 mmHg 44 mmHg Arterial Blood pO2 (Temp corrected) 327 mmHg 317 mmHg Bedside Venous pH 7.23 (7.32-7.42) Bedside Venous pCO2 38 mmHg (41-51) Bedside Venous pO2 327 mmHg (20-40) Bedside Venous HCO3 16 mmol/L (24-28) Bedside Venous Blood Total CO2 17 mmol/L (21-32) Bedside Venous Blood O2 Saturation 100 % Bedside Venous Blood Base Excess -12 mmol/L (0-3) POC Venous Hemoglobin (Calc) 5.1 g/dL (12-15) Bedside FiO2 100 100.0 Bedside Sodium 147 mmol/L (135-145) 151 mmol/L (135-145) Bedside Potassium 3.9 mmol/L (3.5-5.0) 3.2 mmol/L (3.5-5.0) Bedside Ionized Calcium (Amilcar) 0.85 mmol/L (1.13-1.32) 1.34 mmol/L (1.13-1.32) Bedside Hemoglobin (Calculated) 5.8 g/dL (12-15) Bedside Arterial pH 7.24 (7.35-7.45) Bedside Arterial pCO2 44 mmHg (35-45) Bedside Arterial pO2 317 mmHg (75-100) Bedside Arterial HCO3 19 mmol/L (21-28) Bedside Arterial Total CO2 20 mmol/L (21-32) Arterial Bld O2 Saturation (Measur) 100 % (95-99) Bedside Arterial Blood Base Excess -9 mmol/L (0-3) Test 03/08/18 18:57 03/08/18 19:36 03/08/18 19:40 03/08/18 20:00 Bedside Hemoglobin (Calculated) 6.5 g/dL (12-15) Bedside Hematocrit 19 % (36-40) Bedside Arterial pH 7.27 (7.35-7.45) Arterial Blood pH (Temp corrected) 7.28 7.38 Bedside Arterial pCO2 52 mmHg (35-45) Arterial Blood pCO2 (Temp correct) 49 mmHg 38 mmHg Bedside Arterial pO2 416 mmHg (75-100) Arterial Blood pO2 (Temp corrected) 411 mmHg 132 mmHg Bedside Arterial HCO3 24 mmol/L (21-28) Bedside Arterial Total CO2 25 mmol/L (21-32) Arterial Bld O2 Saturation (Measur) 100 % (95-99) Bedside Arterial Blood Base Excess -3 mmol/L (0-3) Bedside FiO2 100.0 Bedside Sodium 155 mmol/L (135-145) Bedside Potassium 3.1 mmol/L (3.5-5.0) Glucose Level 194 mg/dL (70-99) 192 mg/dL (70-99) Bedside Ionized Calcium (Amilcar) 1.17 mmol/L (1.13-1.32) Glucose (Fingerstick) 151 mg/dL (70-99) White Blood Count 6.0 x10^3/uL (4.0-11.0) Red Blood Count 3.11 x10^6/uL (3.50-5.40) Hemoglobin 9.4 g/dL (12.0-15.5) Hematocrit 26.9 % (36.0-47.0) Mean Corpuscular Volume 87 fL (79-100) Mean Corpuscular Hemoglobin 30 pg (25-35) Mean Corpuscular Hemoglobin Concent 35 g/dL (31-37) Red Cell Distribution Width 14.7 % (11.5-14.5) Platelet Count 43 x10^3/uL (140-400) Neutrophils (%) (Auto) 81 % (31-73) Lymphocytes (%) (Auto) 12 % (24-48) Monocytes (%) (Auto) 7 % (0-9) Eosinophils (%) (Auto) 0 % (0-3) Basophils (%) (Auto) 0 % (0-3) Neutrophils # (Auto) 4.9 x10^3uL (1.8-7.7) Lymphocytes # (Auto) 0.7 x10^3/uL (1.0-4.8) Monocytes # (Auto) 0.4 x10^3/uL (0.0-1.1) Eosinophils # (Auto) 0.0 x10^3/uL (0.0-0.7) Basophils # (Auto) 0.0 x10^3/uL (0.0-0.2) Platelet Estimate Decreased (ADEQUATE) Prothrombin Time 19.2 SEC (11.7-14.0) Prothromb Time International Ratio 1.6 (0.8-1.1) Sodium Level 158 mmol/L (136-145) Potassium Level 3.3 mmol/L (3.5-5.1) Chloride Level 120 mmol/L (98-107) Carbon Dioxide Level 24 mmol/L (21-32) Anion Gap 14 (6-14) Blood Urea Nitrogen 13 mg/dL (7-20) Creatinine 0.6 mg/dL (0.6-1.0) Estimated GFR (Cockcroft-Gault) 98.8 BUN/Creatinine Ratio 22 (6-20) Calcium Level 9.7 mg/dL (8.5-10.1) Total Bilirubin 1.1 mg/dL (0.2-1.0) Aspartate Amino Transf (AST/SGOT) 26 U/L (15-37) Alanine Aminotransferase (ALT/SGPT) 24 U/L (14-59) Alkaline Phosphatase 39 U/L (46-116) Total Protein 4.0 g/dL (6.4-8.2) Albumin 2.4 g/dL (3.4-5.0) Albumin/Globulin Ratio 1.5 (1.0-1.7) O2 Saturation 98 % (92-99) Arterial Blood pH 7.35 (7.35-7.45) Arterial Blood pCO2 at Patient Temp 42 mmHg (35-46) Arterial Blood pO2 at Patient Temp 145 mmHg (65-108) Arterial Blood HCO3 23 mmol/L (21-28) Arterial Blood Base Excess -3 mmol/L (-3-3) FiO2 50 Test 03/08/18 23:40 03/09/18 00:42 03/09/18 02:59 03/09/18 05:50 White Blood Count 9.5 x10^3/uL (4.0-11.0) 10.2 x10^3/uL (4.0-11.0) 8.9 x10^3/uL (4.0-11.0) Red Blood Count 2.01 x10^6/uL (3.50-5.40) 2.11 x10^6/uL (3.50-5.40) 4.50 x10^6/uL (3.50-5.40) Hemoglobin 6.2 g/dL (12.0-15.5) 6.5 g/dL (12.0-15.5) 13.6 g/dL (12.0-15.5) Hematocrit 17.3 % (36.0-47.0) 18.2 % (36.0-47.0) 39.2 % (36.0-47.0) Mean Corpuscular Volume 86 fL (79-100) 86 fL (79-100) 87 fL (79-100) Mean Corpuscular Hemoglobin 31 pg (25-35) 31 pg (25-35) 30 pg (25-35) Mean Corpuscular Hemoglobin Concent 36 g/dL (31-37) 36 g/dL (31-37) 35 g/dL (31-37) Red Cell Distribution Width 14.2 % (11.5-14.5) 14.5 % (11.5-14.5) 14.9 % (11.5-14.5) Platelet Count 154 x10^3/uL (140-400) 160 x10^3/uL (140-400) 79 x10^3/uL (140-400) Neutrophils (%) (Auto) 76 % (31-73) 73 % (31-73) Lymphocytes (%) (Auto) 16 % (24-48) 19 % (24-48) Monocytes (%) (Auto) 8 % (0-9) 8 % (0-9) Eosinophils (%) (Auto) 0 % (0-3) 0 % (0-3) Basophils (%) (Auto) 0 % (0-3) 0 % (0-3) Neutrophils # (Auto) 7.8 x10^3uL (1.8-7.7) 6.5 x10^3uL (1.8-7.7) Lymphocytes # (Auto) 1.7 x10^3/uL (1.0-4.8) 1.7 x10^3/uL (1.0-4.8) Monocytes # (Auto) 0.8 x10^3/uL (0.0-1.1) 0.7 x10^3/uL (0.0-1.1) Eosinophils # (Auto) 0.0 x10^3/uL (0.0-0.7) 0.0 x10^3/uL (0.0-0.7) Basophils # (Auto) 0.0 x10^3/uL (0.0-0.2) 0.0 x10^3/uL (0.0-0.2) Prothrombin Time 19.2 SEC (11.7-14.0) Prothromb Time International Ratio 1.6 (0.8-1.1) Fibrinogen 130 mg/dL (200-440) Sodium Level 157 mmol/L (136-145) 153 mmol/L (136-145) Potassium Level 4.1 mmol/L (3.5-5.1) 3.5 mmol/L (3.5-5.1) Chloride Level 119 mmol/L (98-107) 118 mmol/L (98-107) Carbon Dioxide Level 23 mmol/L (21-32) 24 mmol/L (21-32) Anion Gap 15 (6-14) 11 (6-14) Blood Urea Nitrogen 17 mg/dL (7-20) 18 mg/dL (7-20) Creatinine 0.7 mg/dL (0.6-1.0) 0.7 mg/dL (0.6-1.0) Estimated GFR (Cockcroft-Gault) 82.7 82.7 Glucose Level 187 mg/dL (70-99) 190 mg/dL (70-99) 155 mg/dL (70-99) Calcium Level 9.0 mg/dL (8.5-10.1) 8.4 mg/dL (8.5-10.1) Bedside Hemoglobin (Calculated) 7.8 g/dL (12-15) Bedside Hematocrit 23 % (36-40) Bedside Arterial pH 7.34 (7.35-7.45) Arterial Blood pH (Temp corrected) 7.35 Bedside Arterial pCO2 38 mmHg (35-45) Arterial Blood pCO2 (Temp correct) 36 mmHg Bedside Arterial pO2 313 mmHg (75-100) Arterial Blood pO2 (Temp corrected) 308 mmHg Bedside Arterial HCO3 20 mmol/L (21-28) Bedside Arterial Total CO2 22 mmol/L (21-32) Arterial Bld O2 Saturation (Measur) 100 % (95-99) Bedside Arterial Blood Base Excess -5 mmol/L (0-3) Bedside FiO2 100.0 Bedside Sodium 153 mmol/L (135-145) Bedside Potassium 3.7 mmol/L (3.5-5.0) Bedside Ionized Calcium (Amilcar) 1.08 mmol/L (1.13-1.32) Phosphorus Level 3.7 mg/dL (2.6-4.7) Magnesium Level 1.2 mg/dL (1.8-2.4) Test 03/09/18 08:33 03/09/18 10:40 03/09/18 14:15 03/09/18 14:30 O2 Saturation 97 % (92-99) Arterial Blood pH 7.42 (7.35-7.45) Arterial Blood pCO2 at Patient Temp 34 mmHg (35-46) Arterial Blood pO2 at Patient Temp 106 mmHg (65-108) Arterial Blood HCO3 22 mmol/L (21-28) Arterial Blood Base Excess -2 mmol/L (-3-3) FiO2 50% White Blood Count 10.8 x10^3/uL (4.0-11.0) 12.6 x10^3/uL (4.0-11.0) Red Blood Count 4.33 x10^6/uL (3.50-5.40) 4.20 x10^6/uL (3.50-5.40) Hemoglobin 13.4 g/dL (12.0-15.5) 12.9 g/dL (12.0-15.5) Hematocrit 37.5 % (36.0-47.0) 36.5 % (36.0-47.0) Mean Corpuscular Volume 87 fL (79-100) 87 fL (79-100) Mean Corpuscular Hemoglobin 31 pg (25-35) 31 pg (25-35) Mean Corpuscular Hemoglobin Concent 36 g/dL (31-37) 36 g/dL (31-37) Red Cell Distribution Width 15.1 % (11.5-14.5) 15.0 % (11.5-14.5) Platelet Count 79 x10^3/uL (140-400) 79 x10^3/uL (140-400) Neutrophils (%) (Auto) 70 % (31-73) Lymphocytes (%) (Auto) 20 % (24-48) Monocytes (%) (Auto) 10 % (0-9) Eosinophils (%) (Auto) 0 % (0-3) Basophils (%) (Auto) 0 % (0-3) Neutrophils # (Auto) 7.5 x10^3uL (1.8-7.7) Lymphocytes # (Auto) 2.1 x10^3/uL (1.0-4.8) Monocytes # (Auto) 1.1 x10^3/uL (0.0-1.1) Eosinophils # (Auto) 0.0 x10^3/uL (0.0-0.7) Basophils # (Auto) 0.0 x10^3/uL (0.0-0.2) Prothrombin Time 13.8 SEC (11.7-14.0) Prothromb Time International Ratio 1.1 (0.8-1.1) Fibrinogen 217 mg/dL (200-440) Lactic Acid Level 2.2 mmol/L (0.4-2.0) Uric Acid 4.6 mg/dL (2.6-6.0) Creatine Kinase 629 U/L (26-192) Test 03/09/18 16:30 03/09/18 18:15 03/09/18 21:50 03/10/18 05:20 Urine Collection Type Unknown Urine Color Yellow Urine Clarity Clear Urine pH 6.0 Urine Specific [place] 1.025 Urine Protein 15.2 mg/dL (Not Estab.) Urine Glucose (UA) Negative mg/dL (NEG) Urine Ketones (Stick) Negative mg/dL (NEG) Urine Blood Negative (NEG) Urine Nitrite Negative (NEG) Urine Bilirubin Negative (NEG) Urine Urobilinogen Dipstick 0.2 mg/dL (0.2 mg/dL) Urine Leukocyte Esterase Small (NEG) Urine RBC 1-2 /HPF (0-2) Urine WBC 11-20 /HPF (0-4) Urine Squamous Epithelial Cells Few /LPF Urine Bacteria Few /HPF (0-FEW) Urine Hyaline Casts Few /HPF Urine Mucus Marked /LPF Urine Random Sodium <60 mmol/L (Not Estab.) Urine Creatinine 96.7 mg/dL (Not Estab.) Urine Protein/Creatinine Ratio 157 mg/g creat (0-200) Potassium Level 3.8 mmol/L (3.5-5.1) 3.9 mmol/L (3.5-5.1) Magnesium Level 2.2 mg/dL (1.8-2.4) 1.3 mg/dL (1.8-2.4) White Blood Count 15.9 x10^3/uL (4.0-11.0) Red Blood Count 4.46 x10^6/uL (3.50-5.40) Hemoglobin 13.6 g/dL (12.0-15.5) 12.0 g/dL (12.0-15.5) Hematocrit 38.8 % (36.0-47.0) Mean Corpuscular Volume 87 fL (79-100) Mean Corpuscular Hemoglobin 31 pg (25-35) Mean Corpuscular Hemoglobin Concent 35 g/dL (31-37) Red Cell Distribution Width 15.3 % (11.5-14.5) Platelet Count 81 x10^3/uL (140-400) Sodium Level 149 mmol/L (136-145) Chloride Level 117 mmol/L (98-107) Carbon Dioxide Level 25 mmol/L (21-32) Anion Gap 7 (6-14) Blood Urea Nitrogen 24 mg/dL (7-20) Creatinine 0.6 mg/dL (0.6-1.0) Estimated GFR (Cockcroft-Gault) 98.8 Glucose Level 119 mg/dL (70-99) Calcium Level 7.7 mg/dL (8.5-10.1) Phosphorus Level 2.5 mg/dL (2.6-4.7) Albumin 2.1 g/dL (3.4-5.0) Laboratory Tests Test 03/09/18 10:40 03/09/18 14:15 03/09/18 14:30 03/09/18 16:30 White Blood Count 10.8 x10^3/uL (4.0-11.0) 12.6 x10^3/uL (4.0-11.0) Red Blood Count 4.33 x10^6/uL (3.50-5.40) 4.20 x10^6/uL (3.50-5.40) Hemoglobin 13.4 g/dL (12.0-15.5) 12.9 g/dL (12.0-15.5) Hematocrit 37.5 % (36.0-47.0) 36.5 % (36.0-47.0) Mean Corpuscular Volume 87 fL (79-100) 87 fL (79-100) Mean Corpuscular Hemoglobin 31 pg (25-35) 31 pg (25-35) Mean Corpuscular Hemoglobin Concent 36 g/dL (31-37) 36 g/dL (31-37) Red Cell Distribution Width 15.1 % (11.5-14.5) 15.0 % (11.5-14.5) Platelet Count 79 x10^3/uL (140-400) 79 x10^3/uL (140-400) Neutrophils (%) (Auto) 70 % (31-73) Lymphocytes (%) (Auto) 20 % (24-48) Monocytes (%) (Auto) 10 % (0-9) Eosinophils (%) (Auto) 0 % (0-3) Basophils (%) (Auto) 0 % (0-3) Neutrophils # (Auto) 7.5 x10^3uL (1.8-7.7) Lymphocytes # (Auto) 2.1 x10^3/uL (1.0-4.8) Monocytes # (Auto) 1.1 x10^3/uL (0.0-1.1) Eosinophils # (Auto) 0.0 x10^3/uL (0.0-0.7) Basophils # (Auto) 0.0 x10^3/uL (0.0-0.2) Prothrombin Time 13.8 SEC (11.7-14.0) Prothromb Time International Ratio 1.1 (0.8-1.1) Fibrinogen 217 mg/dL (200-440) Lactic Acid Level 2.2 mmol/L (0.4-2.0) Uric Acid 4.6 mg/dL (2.6-6.0) Creatine Kinase 629 U/L (26-192) Urine Collection Type Unknown Urine Color Yellow Urine Clarity Clear Urine pH 6.0 Urine Specific [place] 1.025 Urine Protein 15.2 mg/dL (Not Estab.) Urine Glucose (UA) Negative mg/dL (NEG) Urine Ketones (Stick) Negative mg/dL (NEG) Urine Blood Negative (NEG) Urine Nitrite Negative (NEG) Urine Bilirubin Negative (NEG) Urine Urobilinogen Dipstick 0.2 mg/dL (0.2 mg/dL) Urine Leukocyte Esterase Small (NEG) Urine RBC 1-2 /HPF (0-2) Urine WBC 11-20 /HPF (0-4) Urine Squamous Epithelial Cells Few /LPF Urine Bacteria Few /HPF (0-FEW) Urine Hyaline Casts Few /HPF Urine Mucus Marked /LPF Urine Random Sodium <60 mmol/L (Not Estab.) Urine Creatinine 96.7 mg/dL (Not Estab.) Urine Protein/Creatinine Ratio 157 mg/g creat (0-200) Test 03/09/18 18:15 03/09/18 21:50 03/10/18 05:20 Potassium Level 3.8 mmol/L (3.5-5.1) 3.9 mmol/L (3.5-5.1) Magnesium Level 2.2 mg/dL (1.8-2.4) 1.3 mg/dL (1.8-2.4) White Blood Count 15.9 x10^3/uL (4.0-11.0) Red Blood Count 4.46 x10^6/uL (3.50-5.40) Hemoglobin 13.6 g/dL (12.0-15.5) 12.0 g/dL (12.0-15.5) Hematocrit 38.8 % (36.0-47.0) Mean Corpuscular Volume 87 fL (79-100) Mean Corpuscular Hemoglobin 31 pg (25-35) Mean Corpuscular Hemoglobin Concent 35 g/dL (31-37) Red Cell Distribution Width 15.3 % (11.5-14.5) Platelet Count 81 x10^3/uL (140-400) Sodium Level 149 mmol/L (136-145) Chloride Level 117 mmol/L (98-107) Carbon Dioxide Level 25 mmol/L (21-32) Anion Gap 7 (6-14) Blood Urea Nitrogen 24 mg/dL (7-20) Creatinine 0.6 mg/dL (0.6-1.0) Estimated GFR (Cockcroft-Gault) 98.8 Glucose Level 119 mg/dL (70-99) Calcium Level 7.7 mg/dL (8.5-10.1) Phosphorus Level 2.5 mg/dL (2.6-4.7) Albumin 2.1 g/dL (3.4-5.0) Medications Current Medications Sodium Chloride 500 ml @ 500 mls/hr Q1H IV Last administered on 03/07/18at 18: 29; Start 03/07/18 at 18:30; Stop 03/07/18 at 18:42; Status DC Pantoprazole Sodium (PROTONIX VIAL for IV PUSH) 80 mg 1X ONCE IVP Last administered on 03/07/18at 19:00; Start 03/07/18 at 18:30; Stop 03/07/18 at 18 :32; Status DC Octreotide Acetate 500 mcg/ Sodium Chloride 101 ml @ 5.05 mls/hr CONT PRN IV SEE I/O RECORD Last administered on 03/09/18at 10:38; Start 03/07/18 at 19:30; Stop 03/09/18 at 11:47; Status DC Ondansetron HCl (Zofran) 4 mg PRN Q8HRS PRN IV NAUSEA/VOMITING; Start at 19:15; Stop 03/08/18 at 19:14; Status DC Iohexol (Omnipaque 300 Mg/ml) 75 ml 1X ONCE IV Last administered on at 20:32; Start 03/07/18 at 19:15; Stop 03/07/18 at 19:16; Status DC Info (CONTRAST GIVEN -- Rx MONITORING) 1 each PRN DAILY PRN MC SEE COMMENTS; Start 03/07/18 at 19:15; Stop 03/09/18 at 19:14; Status DC Propofol 20 ml @ As Directed STK-MED ONCE IV ; Start 03/07/18 at 22:37; Stop 03/07/18 at 22:38; Status DC Pantoprazole Sodium 80 mg/ Sodium Chloride 100 ml @ 10 mls/hr Q10H IV Last administered on 03/10/18at 04:35; Start 03/07/18 at 23:00 Ringer's Solution 1,000 ml @ 200 mls/hr Q5H IV Last administered on at 20:41; Start 03/07/18 at 23:15; Stop 03/09/18 at 10:58; Status DC Dopamine HCl/ Dextrose 250 ml @ 4.461 mls/ hr CONT PRN IV SEE I/O RECORD; Start 03/08/18 at 09:30 Lidocaine/Sodium Bicarbonate (Buffered Lidocaine 1%) 3 ml STK-MED ONCE .ROUTE ; Start 03/08/18 at 11:47; Stop 03/08/18 at 11:48; Status DC Iohexol (Omnipaque 300 Mg/ml) 100 ml STK-MED ONCE .ROUTE ; Start 03/08/18 at 11 :47; Stop 03/08/18 at 11:48; Status DC Heparin Sodium/ Sodium Chloride 1,000 ml @ As Directed STK-MED ONCE .ROUTE ; Start 03/08/18 at 11:47; Stop 03/08/18 at 11:48; Status DC Midazolam HCl (Versed) 2 mg STK-MED ONCE .ROUTE ; Start 03/08/18 at 12:06; Stop 03/08/18 at 12:07; Status DC Fentanyl Citrate (Fentanyl 2ml Vial) 100 mcg STK-MED ONCE .ROUTE ; Start at 12:06; Stop 03/08/18 at 12:07; Status DC Heparin Sodium/ Sodium Chloride (HEPARIN for ARTERIAL LINE FLUSH) 1,000 unit 1X ONCE IART Last administered on 03/08/18at 12:30; Start 03/08/18 at 12:30; Stop 03/08/18 at 12:31; Status DC Lidocaine/Sodium Bicarbonate (Buffered Lidocaine 1%) 3 ml 1X ONCE IJ Last administered on 03/08/18at 12:15; Start 03/08/18 at 12:15; Stop 03/08/18 at 12 :21; Status DC Midazolam HCl (Versed) 2 mg 1X ONCE IV ; Start 03/08/18 at 12:15; Stop at 12:21; Status DC Fentanyl Citrate (Fentanyl 2ml Vial) 100 mcg 1X ONCE IV Last administered on 03/08/18at 12:15; Start 03/08/18 at 12:15; Stop 03/08/18 at 12:21; Status DC Iohexol (Omnipaque 300 Mg/ml) 100 ml 1X ONCE IART Last administered on at 12:15; Start 03/08/18 at 12:15; Stop 03/08/18 at 12:21; Status DC Phenylephrine HCl ([place]ander-Synephrine Inj) 10 mg STK-MED ONCE .ROUTE ; Start at 13:25; Stop 03/08/18 at 13:26; Status DC Succinylcholine Chloride ([place]) 200 mg STK-MED ONCE .ROUTE ; Start at 14:55; Stop 03/08/18 at 14:56; Status DC Propofol 20 ml @ As Directed STK-MED ONCE IV ; Start 03/08/18 at 14:55; Stop 03/08/18 at 14:56; Status DC Ketamine HCl (Ketamine) 50 mg STK-MED ONCE .ROUTE ; Start 03/08/18 at 14:55; Stop 03/08/18 at 14:57; Status DC Dexamethasone Sodium Phosphate (Decadron) 20 mg STK-MED ONCE .ROUTE ; Start at 14:56; Stop 03/08/18 at 14:58; Status DC Ondansetron HCl (Zofran) 4 mg STK-MED ONCE .ROUTE ; Start 03/08/18 at 14:57; Stop 03/08/18 at 14:58; Status DC Lidocaine HCl (Lidocaine Pf 2% Vial) 5 ml STK-MED ONCE .ROUTE ; Start 03/08/18 at 14:57; Stop 03/08/18 at 14:58; Status DC Propofol 20 ml @ As Directed STK-MED ONCE IV ; Start 03/08/18 at 14:57; Stop 03/08/18 at 14:58; Status DC Fentanyl Citrate (Fentanyl 5ml Vial) 250 mcg STK-MED ONCE .ROUTE ; Start at 15:54; Stop 03/08/18 at 15:55; Status DC Rocuronium [place] (Zemuron) 100 mg STK-MED ONCE .ROUTE ; Start 03/08/18 at 15: 55; Stop 03/08/18 at 15:57; Status DC Cefazolin Sodium 100 ml @ As Directed STK-MED ONCE IV ; Start 03/08/18 at 15: 57; Stop 03/08/18 at 15:59; Status DC Cellulose (Surgicel Hemostat 4x8) 1 each STK-MED ONCE .ROUTE Last administered on 03/08/18at 15:53; Start 03/08/18 at 16:27; Stop 03/08/18 at 16:28; Status DC Cellulose (Surgicel Hemostat 2x3) 1 each STK-MED ONCE .ROUTE Last administered on 03/08/18at 15:53; Start 03/08/18 at 16:42; Stop 03/08/18 at 16:44; Status DC Cellulose (Surgicel Hemostat 2x14) 1 each STK-MED ONCE .ROUTE ; Start 03/08/18 at 16:42; Stop 03/08/18 at 16:44; Status DC Cellulose (Surgicel Hemostat 4x8) 1 each STK-MED ONCE .ROUTE Last administered on 03/08/18at 15:53; Start 03/08/18 at 16:42; Stop 03/08/18 at 16:44; Status DC Calcium Chloride (Calcium Chloride) 1,000 mg STK-MED ONCE .ROUTE ; Start at 17:03; Stop 03/08/18 at 17:04; Status DC Calcium Chloride (Calcium Chloride) 1,000 mg STK-MED ONCE .ROUTE ; Start at 17:03; Stop 03/08/18 at 17:04; Status DC Sodium Bicarbonate (Sodium Bicarb Adult 8.4% Syr) 50 meq STK-MED ONCE .ROUTE ; Start 03/08/18 at 17:03; Stop 03/08/18 at 17:04; Status DC Sodium Bicarbonate (Sodium Bicarb Adult 8.4% Syr) 50 meq STK-MED ONCE .ROUTE ; Start 03/08/18 at 17:03; Stop 03/08/18 at 17:04; Status DC Epinephrine HCl (EPINEPHrine SYRINGE) 1 mg STK-MED ONCE .ROUTE ; Start at 17:03; Stop 03/08/18 at 17:04; Status DC Albumin Human 500 ml @ As Directed STK-MED ONCE IV ; Start 03/08/18 at 17:03; Stop 03/08/18 at 17:04; Status DC Sodium Bicarbonate (Sodium Bicarb Adult 8.4% Syr) 50 meq STK-MED ONCE .ROUTE ; Start 03/08/18 at 17:07; Stop 03/08/18 at 17:08; Status DC Sodium Bicarbonate (Sodium Bicarb Adult 8.4% Syr) 50 meq STK-MED ONCE .ROUTE ; Start 03/08/18 at 17:07; Stop 03/08/18 at 17:08; Status DC Cellulose (Surgicel Hemostat 4x8) 1 each STK-MED ONCE TP Last administered on 03/08/18at 15:53; Start 03/08/18 at 15:53; Stop 03/08/18 at 17:40; Status DC Sodium Bicarbonate (Sodium Bicarb Adult 8.4% Syr) 50 meq STK-MED ONCE .ROUTE ; Start 03/08/18 at 17:35; Stop 03/08/18 at 17:37; Status DC Calcium Chloride (Calcium Chloride) 1,000 mg STK-MED ONCE .ROUTE ; Start at 17:35; Stop 03/08/18 at 17:37; Status DC Albumin Human 500 ml @ As Directed STK-MED ONCE IV ; Start 03/08/18 at 17:41; Stop 03/08/18 at 17:43; Status DC Norepinephrine Bitartrate 250 ml @ 1.875 mls/ hr 1X ONCE IV Last administered on 03/08/18at 21:00; Start 03/08/18 at 17:45; Stop 03/09/18 at 08 :10; Status DC Vasopressin 40 unit/Dextrose 102 ml @ 6 mls/hr 1X ONCE IV Last administered on 03/08/18at 20:41; Start 03/08/18 at 18:00; Stop 03/09/18 at 10:59; Status DC Calcium Chloride (Calcium Chloride) 1,000 mg STK-MED ONCE .ROUTE ; Start at 17:57; Stop 03/08/18 at 17:59; Status DC Sodium Bicarbonate (Sodium Bicarb Adult 8.4% Syr) 50 meq STK-MED ONCE .ROUTE ; Start 03/08/18 at 18:04; Stop 03/08/18 at 18:06; Status DC Sodium Bicarbonate (Sodium Bicarb Adult 8.4% Syr) 50 meq STK-MED ONCE .ROUTE ; Start 03/08/18 at 18:05; Stop 03/08/18 at 18:06; Status DC Sodium Bicarbonate (Sodium Bicarb Adult 8.4% Syr) 50 meq STK-MED ONCE .ROUTE ; Start 03/08/18 at 18:07; Stop 03/08/18 at 18:08; Status DC Sodium Bicarbonate (Sodium Bicarb Adult 8.4% Syr) 50 meq STK-MED ONCE .ROUTE ; Start 03/08/18 at 18:07; Stop 03/08/18 at 18:08; Status DC Epinephrine HCl (EPINEPHrine SYRINGE) 1 mg STK-MED ONCE .ROUTE ; Start at 18:40; Stop 03/08/18 at 18:41; Status DC Prochlorperazine Edisylate (Compazine) 10 mg STK-MED ONCE .ROUTE ; Start at 18:42; Stop 03/08/18 at 18:44; Status DC Fentanyl Citrate (Fentanyl 2ml Vial) 100 mcg STK-MED ONCE .ROUTE ; Start at 18:43; Stop 03/08/18 at 18:44; Status DC Sevoflurane (Ultane) 90 ml STK-MED ONCE IH ; Start 03/08/18 at 18:48; Stop at 18:49; Status DC Cellulose (Surgicel Hemostat 2x3) 1 each STK-MED ONCE TP Last administered on 03/08/18at 15:55; Start 03/08/18 at 15:55; Stop 03/08/18 at 19:04; Status DC Cellulose (Surgicel Hemostat 2x3) 1 each STK-MED ONCE TP Last administered on 03/08/18at 15:53; Start 03/08/18 at 15:53; Stop 03/08/18 at 19:04; Status DC Propofol 100 ml @ As Directed STK-MED ONCE IV ; Start 03/08/18 at 19:56; Stop 03/08/18 at 19:58; Status DC Famotidine (Pepcid) 20 mg BID PO ; Start 03/08/18 at 21:00; Stop 03/09/18 at 08:11; Status DC Sodium Chloride (Normal Saline Flush) 3 ml QSHIFT PRN IV AFTER MEDS AND BLOOD DRAWS; Start 03/08/18 at 20:45 Morphine Sulfate (Morphine Sulfate) 1 mg PRN Q1HR PRN IV PAIN Last administered on 03/08/18at 21:12; Start 03/08/18 at 20:45 Ondansetron HCl (Zofran) 4 mg PRN Q6HRS PRN IV NAUESA, 1ST CHOICE; Start 03/08 at 20:45 Fentanyl Citrate 30 ml @ 0 mls/hr CONT PRN IV SEE PROTOCOL Last administered on 03/09/18at 23:16; Start 03/08/18 at 22:15 Fentanyl Citrate (Fentanyl 2ml Vial) 25 mcg PRN Q1HR PRN IV SEE COMMENTS; Start 03/08/18 at 22:15 Fentanyl Citrate (Fentanyl 2ml Vial) 50 mcg PRN Q1HR PRN IV SEE COMMENTS Last administered on 03/08/18at 22:41; Start 03/08/18 at 22:15 Chlorhexidine Gluconate (Peridex) 15 ml BID MM Last administered on 03/09/18at 21:30; Start 03/09/18 at 09:00 Midazolam HCl 100 ml @ 0 mls/hr CONT PRN IV SEE PROTOCOL Last administered on 03/09/18at 21:43; Start 03/08/18 at 22:15 Factor IX (Pha) (Novoseven Rt) 1 mg 1X ONCE IV Last administered on at 01:09; Start 03/09/18 at 01:00; Stop 03/09/18 at 01:01; Status DC Lorazepam (Ativan) 2 mg STK-MED ONCE .ROUTE ; Start 03/09/18 at 01:15; Stop at 01:16; Status DC Norepinephrine Bitartrate 250 ml @ 1.875 mls/ hr CONT PRN IV SEE I/O RECORD Last administered on 03/09/18at 17:41; Start 03/09/18 at 01:45 Cefazolin Sodium/ Dextrose 50 ml @ 100 mls/hr 1X PREOP PRN IV PRIOR TO PROCEDURE Last administered on 03/09/18at 02:00; Start 03/09/18 at 02:00; Stop 03/10/18 at 01:59; Status DC Rocuronium [place] (Zemuron) 100 mg STK-MED ONCE .ROUTE ; Start 03/09/18 at 01: 57; Stop 03/09/18 at 01:59; Status DC Fentanyl Citrate (Fentanyl 5ml Vial) 250 mcg STK-MED ONCE .ROUTE ; Start at 02:13; Stop 03/09/18 at 02:14; Status DC Cellulose (Surgicel Hemostat 2x3) 1 each STK-MED ONCE .ROUTE ; Start 03/09/18 at 02:23; Stop 03/09/18 at 02:25; Status DC Cellulose (Surgicel Hemostat 2x14) 1 each STK-MED ONCE .ROUTE ; Start 03/09/18 at 02:23; Stop 03/09/18 at 02:25; Status DC Cellulose (Surgicel Hemostat 4x8) 1 each STK-MED ONCE .ROUTE Last administered on 03/09/18at 02:04; Start 03/09/18 at 02:23; Stop 03/09/18 at 02:25; Status DC Sodium Chloride (Normal Saline Flush) 3 ml QSHIFT PRN IV AFTER MEDS AND BLOOD DRAWS; Start 03/09/18 at 03:30 Cellulose (Surgicel Hemostat 4x8) 1 each STK-MED ONCE TP Last administered on 03/09/18at 02:04; Start 03/09/18 at 02:04; Stop 03/09/18 at 03:20; Status DC Cellulose (Surgicel Hemostat 4x8) 1 each STK-MED ONCE TP Last administered on 03/09/18at 02:04; Start 03/09/18 at 02:04; Stop 03/09/18 at 03:20; Status DC Sodium Bicarbonate (Sodium Bicarb Adult 8.4% Syr) 150 meq STK-MED ONCE .ROUTE ; Start 03/08/18 at 10:00; Stop 03/09/18 at 10:30; Status DC Dopamine HCl/ Dextrose (DOPamine 400MG/ 250ML PREMIX) 400 mg STK-MED ONCE IV ; Start 03/08/18 at 10:00; Stop 03/09/18 at 10:30; Status DC Potassium Chloride/Dextrose 1,000 ml @ 100 mls/hr Q10H IV Last administered on 03/09/18at 11:22; Start 03/09/18 at 11:00; Stop 03/09/18 at 20:59; Status DC Magnesium Sulfate/ Dextrose 100 ml @ 25 mls/hr 1X ONCE IV Last administered on 03/09/18at 13:45; Start 03/09/18 at 12:45; Stop 03/09/18 at 16:44; Status DC Potassium Chloride/Water 50 ml @ 50 mls/hr 1X ONCE IV Last administered on at 13:43; Start 03/09/18 at 12:45; Stop 03/09/18 at 13:44; Status DC Magnesium Sulfate 50 ml @ 25 mls/hr PRN DAILY PRN IV for Mag < 1.7 on am labs Last administered on 03/10/18at 06:17; Start 03/09/18 at 13:45 Sodium Chloride 500 ml @ 500 mls/hr QIDPRN PRN IV U/O <30 cc/hr Last administered on 03/10/18at 02:05; Start 03/09/18 at 19:45 Info (Tpn Per Pharmacy) 1 each PRN DAILY PRN MC SEE COMMENTS; Start 03/10/18 at 09:00; Status UNV Active Scripts Active Reported Prilosec Otc (Omeprazole Magnesium) 20 Mg Tablet.dr 1 Tab PO DAILY Simvastatin 20 Mg Tablet 1 Tab PO QHS Vitals/I & O Vital Sign - Last 24 Hours 03/09/18 03/09/18 03/09/18 03/09/18 09:00 09:11 10:00 11:00 Temp 98.6 99.0 99.1 98.6 99.0 99.1 Pulse 76 74 75 Resp 16 16 16 B/P (MAP) 82/50 (61) 110/62 (78) 104/51 (68) Pulse Ox 100 100 100 100 O2 Delivery Ventilator Ventilator Ventilator Ventilator 03/09/18 03/09/18 03/09/18 03/09/18 11:26 11:27 11:57 12:00 Pulse 76 Resp 18 16 B/P (MAP) 115/53 (73) Pulse Ox 100 100 100 O2 Delivery Ventilator Ventilator Ventilator 03/09/18 03/09/18 03/09/18 03/09/18 12:00 12:00 12:41 13:00 Temp 99.3 99.3 99.3 99.3 Pulse 76 75 Resp 16 16 B/P (MAP) 115/53 (73) 99/47 (64) Pulse Ox 100 100 100 O2 Delivery Ventilator Mechanical Ventilator Ventilator Ventilator 03/09/18 03/09/18 03/09/18 03/09/18 14:00 14:00 15:00 15:04 Temp 99.5 99.5 Pulse 74 74 78 Resp 16 16 B/P (MAP) 100/47 (64) 90/46 (61) Pulse Ox 100 100 100 O2 Delivery Ventilator Ventilator Ventilator 03/09/18 03/09/18 03/09/18 03/09/18 16:00 16:00 16:00 16:56 Temp 99.3 99.3 Pulse 78 78 Resp 16 B/P (MAP) 100/50 (67) 100/50 (67) Pulse Ox 100 100 O2 Delivery Mechanical Ventilator Ventilator Ventilator 03/09/18 03/09/18 03/09/18 03/09/18 17:00 18:00 19:00 20:00 Temp 99.3 99.3 99.3 99.3 Pulse 79 78 78 79 Resp 16 16 15 B/P (MAP) 93/50 (64) 19/53 (42) 108/50 (69) 104/47 (66) Pulse Ox 100 100 100 O2 Delivery Ventilator Ventilator Ventilator 03/09/18 03/09/18 03/09/18 03/09/18 20:00 20:00 20:17 21:00 Temp 99.3 99.3 Pulse 79 79 Resp 16 14 B/P (MAP) 104/47 (66) 92/63 (73) Pulse Ox 100 100 100 O2 Delivery Ventilator Mechanical Ventilator Ventilator Ventilator 03/09/18 03/09/18 03/09/18 03/09/18 21:18 22:00 23:00 23:16 Pulse 80 90 Resp 14 18 16 B/P (MAP) 99/65 (76) 128/57 (80) Pulse Ox 100 100 100 100 O2 Delivery Ventilator Ventilator Ventilator Ventilator 03/09/18 03/09/18 03/09/18 03/10/18 23:23 23:40 23:40 00:00 Temp 99.3 99.3 Pulse 90 92 Resp 16 B/P (MAP) 123/54 (77) 124/55 (78) Pulse Ox 100 100 O2 Delivery Ventilator Mechanical Ventilator Ventilator 03/10/18 03/10/18 03/10/18 03/10/18 01:00 01:25 02:00 03:00 Pulse 93 92 92 Resp 14 17 14 B/P (MAP) 127/57 (80) 128/64 (85) 125/54 (77) Pulse Ox 100 100 100 100 O2 Delivery Ventilator Ventilator Ventilator Ventilator 03/10/18 03/10/18 03/10/18 03/10/18 03:50 04:00 04:00 04:00 Temp 99.0 99.0 Pulse 90 90 Resp 14 B/P (MAP) 127/57 (80) 127/57 (80) Pulse Ox 100 100 O2 Delivery Ventilator Mechanical Ventilator Ventilator 03/10/18 03/10/18 03/10/18 05:00 05:44 06:00 Pulse 89 87 Resp 14 16 B/P (MAP) 129/55 (79) 128/54 (78) Pulse Ox 100 100 100 O2 Delivery Ventilator Ventilator Ventilator Intake and Output 03/09/18 03/09/18 03/10/18 15:01 23:01 07:01 Intake Total 135 ml 1927 ml 1258 ml Output Total 980 ml 1197 ml 1200 ml Balance -845 ml 730 ml 58 ml CAMILA VILLELA MD Mar 10, 2018 09:01
[2018-03-10 09:43] LABS: BASE EXCESS ABG 1 mmol/L (-3-3); HCO3 ABG 25 mmol/L (21-28); PCO2 ABG 36 mmHg (35-46); PO2 ABG 106 mmHg (65-108); SAT O2 ABG 98 % (92-99)
[2018-03-10] MEDS ORDERED: POTASSIUM PHOSPHATE DIBASIC 13.6 MMOL in IV DEXTROSE 5% 100ML 100 ML IV SCH (10:00)
--- NOTE | 2018-03-10 10:06 | PDOC ---
PULMONARY PROGRESS NOTES Subjective Ms. Ortiz has cirrhosis and past resection of hepatocellular carcinomo. She was admitted with GI bleed and intrabdominal bleed that required surgey. She has been on mechanical ventilation since surgery. she is sedated and on mechanical ventilation. Vitals Vital Signs Date Time Temp Pulse Resp B/P (MAP) Pulse Ox O2 Delivery O2 Flow Rate FiO2 03/10/18 06:00 87 16 128/54 (78) 100 Ventilator 03/10/18 04:00 99.0 99.0 Comments sedated Lungs: Clear Cardiovascular: S1, S2 Abdomen: Soft Skin: Warm, Dry Labs Laboratory Tests Test 03/08/18 12:10 03/08/18 14:53 03/08/18 16:35 03/08/18 17:01 White Blood Count 7.4 x10^3/uL (4.0-11.0) 15.0 x10^3/uL (4.0-11.0) Red Blood Count 2.10 x10^6/uL (3.50-5.40) 3.65 x10^6/uL (3.50-5.40) Hemoglobin 6.4 g/dL (12.0-15.5) 10.9 g/dL (12.0-15.5) Hematocrit 18.3 % (36.0-47.0) 31.6 % (36.0-47.0) Mean Corpuscular Volume 87 fL (79-100) 87 fL (79-100) Mean Corpuscular Hemoglobin 31 pg (25-35) 30 pg (25-35) Mean Corpuscular Hemoglobin Concent 35 g/dL (31-37) 35 g/dL (31-37) Red Cell Distribution Width 16.0 % (11.5-14.5) 15.4 % (11.5-14.5) Platelet Count 119 x10^3/uL (140-400) 102 x10^3/uL (140-400) Prothrombin Time 18.2 SEC (11.7-14.0) 16.8 SEC (11.7-14.0) Prothromb Time International Ratio 1.5 (0.8-1.1) 1.4 (0.8-1.1) Neutrophils (%) (Auto) 77 % (31-73) Lymphocytes (%) (Auto) 18 % (24-48) Monocytes (%) (Auto) 4 % (0-9) Eosinophils (%) (Auto) 0 % (0-3) Basophils (%) (Auto) 1 % (0-3) Neutrophils # (Auto) 11.5 x10^3uL (1.8-7.7) Lymphocytes # (Auto) 2.7 x10^3/uL (1.0-4.8) Monocytes # (Auto) 0.6 x10^3/uL (0.0-1.1) Eosinophils # (Auto) 0.0 x10^3/uL (0.0-0.7) Basophils # (Auto) 0.1 x10^3/uL (0.0-0.2) Activated Partial Thromboplast Time 38 SEC (24-38) Fibrinogen 207 mg/dL (200-440) Sodium Level 144 mmol/L (136-145) Potassium Level 4.0 mmol/L (3.5-5.1) Chloride Level 112 mmol/L (98-107) Carbon Dioxide Level 19 mmol/L (21-32) Anion Gap 13 (6-14) Blood Urea Nitrogen 16 mg/dL (7-20) Creatinine 0.7 mg/dL (0.6-1.0) Estimated GFR (Cockcroft-Gault) 82.7 Glucose Level 206 mg/dL (70-99) 207 mg/dL (70-99) 220 mg/dL (70-99) Calcium Level 7.1 mg/dL (8.5-10.1) Ionized Calcium 0.84 mmol/L (1.13-1.32) Bedside Hematocrit 15 % (36-40) 17 % (36-40) Arterial Blood pH (Temp corrected) 7.23 7.24 Arterial Blood pCO2 (Temp correct) 38 mmHg 44 mmHg Arterial Blood pO2 (Temp corrected) 327 mmHg 317 mmHg Bedside Venous pH 7.23 (7.32-7.42) Bedside Venous pCO2 38 mmHg (41-51) Bedside Venous pO2 327 mmHg (20-40) Bedside Venous HCO3 16 mmol/L (24-28) Bedside Venous Blood Total CO2 17 mmol/L (21-32) Bedside Venous Blood O2 Saturation 100 % Bedside Venous Blood Base Excess -12 mmol/L (0-3) POC Venous Hemoglobin (Calc) 5.1 g/dL (12-15) Bedside FiO2 100 100.0 Bedside Sodium 147 mmol/L (135-145) 151 mmol/L (135-145) Bedside Potassium 3.9 mmol/L (3.5-5.0) 3.2 mmol/L (3.5-5.0) Bedside Ionized Calcium (Amilcar) 0.85 mmol/L (1.13-1.32) 1.34 mmol/L (1.13-1.32) Bedside Hemoglobin (Calculated) 5.8 g/dL (12-15) Bedside Arterial pH 7.24 (7.35-7.45) Bedside Arterial pCO2 44 mmHg (35-45) Bedside Arterial pO2 317 mmHg (75-100) Bedside Arterial HCO3 19 mmol/L (21-28) Bedside Arterial Total CO2 20 mmol/L (21-32) Arterial Bld O2 Saturation (Measur) 100 % (95-99) Bedside Arterial Blood Base Excess -9 mmol/L (0-3) Test 03/08/18 18:57 03/08/18 19:36 03/08/18 19:40 03/08/18 20:00 Bedside Hemoglobin (Calculated) 6.5 g/dL (-15) Bedside Hematocrit 19 % (36-40) Bedside Arterial pH 7.27 (7.35-7.45) Arterial Blood pH (Temp corrected) 7.28 7.38 Bedside Arterial pCO2 52 mmHg (35-45) Arterial Blood pCO2 (Temp correct) 49 mmHg 38 mmHg Bedside Arterial pO2 416 mmHg (75-100) Arterial Blood pO2 (Temp corrected) 411 mmHg 132 mmHg Bedside Arterial HCO3 24 mmol/L (21-28) Bedside Arterial Total CO2 25 mmol/L (21-32) Arterial Bld O2 Saturation (Measur) 100 % (95-99) Bedside Arterial Blood Base Excess -3 mmol/L (0-3) Bedside FiO2 100.0 Bedside Sodium 155 mmol/L (135-145) Bedside Potassium 3.1 mmol/L (3.5-5.0) Glucose Level 194 mg/dL (70-99) 192 mg/dL (70-99) Bedside Ionized Calcium (Amilcar) 1.17 mmol/L (1.13-1.32) Glucose (Fingerstick) 151 mg/dL (70-99) White Blood Count 6.0 x10^3/uL (4.0-11.0) Red Blood Count 3.11 x10^6/uL (3.50-5.40) Hemoglobin 9.4 g/dL (12.0-15.5) Hematocrit 26.9 % (36.0-47.0) Mean Corpuscular Volume 87 fL (79-100) Mean Corpuscular Hemoglobin 30 pg (25-35) Mean Corpuscular Hemoglobin Concent 35 g/dL (31-37) Red Cell Distribution Width 14.7 % (11.5-14.5) Platelet Count 43 x10^3/uL (140-400) Neutrophils (%) (Auto) 81 % (31-73) Lymphocytes (%) (Auto) 12 % (24-48) Monocytes (%) (Auto) 7 % (0-9) Eosinophils (%) (Auto) 0 % (0-3) Basophils (%) (Auto) 0 % (0-3) Neutrophils # (Auto) 4.9 x10^3uL (1.8-7.7) Lymphocytes # (Auto) 0.7 x10^3/uL (1.0-4.8) Monocytes # (Auto) 0.4 x10^3/uL (0.0-1.1) Eosinophils # (Auto) 0.0 x10^3/uL (0.0-0.7) Basophils # (Auto) 0.0 x10^3/uL (0.0-0.2) Platelet Estimate Decreased (ADEQUATE) Prothrombin Time 19.2 SEC (11.7-14.0) Prothromb Time International Ratio 1.6 (0.8-1.1) Sodium Level 158 mmol/L (136-145) Potassium Level 3.3 mmol/L (3.5-5.1) Chloride Level 120 mmol/L (98-107) Carbon Dioxide Level 24 mmol/L (21-32) Anion Gap 14 (6-14) Blood Urea Nitrogen 13 mg/dL (7-20) Creatinine 0.6 mg/dL (0.6-1.0) Estimated GFR (Cockcroft-Gault) 98.8 BUN/Creatinine Ratio 22 (6-20) Calcium Level 9.7 mg/dL (8.5-10.1) Total Bilirubin 1.1 mg/dL (0.2-1.0) Aspartate Amino Transf (AST/SGOT) 26 U/L (15-37) Alanine Aminotransferase (ALT/SGPT) 24 U/L (14-59) Alkaline Phosphatase 39 U/L (46-116) Total Protein 4.0 g/dL (6.4-8.2) Albumin 2.4 g/dL (3.4-5.0) Albumin/Globulin Ratio 1.5 (1.0-1.7) O2 Saturation 98 % (92-99) Arterial Blood pH 7.35 (7.35-7.45) Arterial Blood pCO2 at Patient Temp 42 mmHg (35-46) Arterial Blood pO2 at Patient Temp 145 mmHg (65-108) Arterial Blood HCO3 23 mmol/L (21-28) Arterial Blood Base Excess -3 mmol/L (-3-3) FiO2 50 Test 03/08/18 23:40 03/09/18 00:42 03/09/18 02:59 03/09/18 05:50 White Blood Count 9.5 x10^3/uL (4.0-11.0) 10.2 x10^3/uL (4.0-11.0) 8.9 x10^3/uL (4.0-11.0) Red Blood Count 2.01 x10^6/uL (3.50-5.40) 2.11 x10^6/uL (3.50-5.40) 4.50 x10^6/uL (3.50-5.40) Hemoglobin 6.2 g/dL (12.0-15.5) 6.5 g/dL (12.0-15.5) 13.6 g/dL (12.0-15.5) Hematocrit 17.3 % (36.0-47.0) 18.2 % (36.0-47.0) 39.2 % (36.0-47.0) Mean Corpuscular Volume 86 fL (79-100) 86 fL (79-100) 87 fL (79-100) Mean Corpuscular Hemoglobin 31 pg (25-35) 31 pg (25-35) 30 pg (25-35) Mean Corpuscular Hemoglobin Concent 36 g/dL (31-37) 36 g/dL (31-37) 35 g/dL (31-37) Red Cell Distribution Width 14.2 % (11.5-14.5) 14.5 % (11.5-14.5) 14.9 % (11.5-14.5) Platelet Count 154 x10^3/uL (140-400) 160 x10^3/uL (140-400) 79 x10^3/uL (140-400) Neutrophils (%) (Auto) 76 % (31-73) 73 % (31-73) Lymphocytes (%) (Auto) 16 % (24-48) 19 % (24-48) Monocytes (%) (Auto) 8 % (0-9) 8 % (0-9) Eosinophils (%) (Auto) 0 % (0-3) 0 % (0-3) Basophils (%) (Auto) 0 % (0-3) 0 % (0-3) Neutrophils # (Auto) 7.8 x10^3uL (1.8-7.7) 6.5 x10^3uL (1.8-7.7) Lymphocytes # (Auto) 1.7 x10^3/uL (1.0-4.8) 1.7 x10^3/uL (1.0-4.8) Monocytes # (Auto) 0.8 x10^3/uL (0.0-1.1) 0.7 x10^3/uL (0.0-1.1) Eosinophils # (Auto) 0.0 x10^3/uL (0.0-0.7) 0.0 x10^3/uL (0.0-0.7) Basophils # (Auto) 0.0 x10^3/uL (0.0-0.2) 0.0 x10^3/uL (0.0-0.2) Prothrombin Time 19.2 SEC (11.7-14.0) Prothromb Time International Ratio 1.6 (0.8-1.1) Fibrinogen 130 mg/dL (200-440) Sodium Level 157 mmol/L (136-145) 153 mmol/L (136-145) Potassium Level 4.1 mmol/L (3.5-5.1) 3.5 mmol/L (3.5-5.1) Chloride Level 119 mmol/L (98-107) 118 mmol/L (98-107) Carbon Dioxide Level 23 mmol/L (21-32) 24 mmol/L (21-32) Anion Gap 15 (6-14) 11 (6-14) Blood Urea Nitrogen 17 mg/dL (7-20) 18 mg/dL (7-20) Creatinine 0.7 mg/dL (0.6-1.0) 0.7 mg/dL (0.6-1.0) Estimated GFR (Cockcroft-Gault) 82.7 82.7 Glucose Level 187 mg/dL (70-99) 190 mg/dL (70-99) 155 mg/dL (70-99) Calcium Level 9.0 mg/dL (8.5-10.1) 8.4 mg/dL (8.5-10.1) Bedside Hemoglobin (Calculated) 7.8 g/dL (12-15) Bedside Hematocrit 23 % (36-40) Bedside Arterial pH 7.34 (7.35-7.45) Arterial Blood pH (Temp corrected) 7.35 Bedside Arterial pCO2 38 mmHg (35-45) Arterial Blood pCO2 (Temp correct) 36 mmHg Bedside Arterial pO2 313 mmHg (75-100) Arterial Blood pO2 (Temp corrected) 308 mmHg Bedside Arterial HCO3 20 mmol/L (21-28) Bedside Arterial Total CO2 22 mmol/L (21-32) Arterial Bld O2 Saturation (Measur) 100 % (95-99) Bedside Arterial Blood Base Excess -5 mmol/L (0-3) Bedside FiO2 100.0 Bedside Sodium 153 mmol/L (135-145) Bedside Potassium 3.7 mmol/L (3.5-5.0) Bedside Ionized Calcium (Amilcar) 1.08 mmol/L (1.13-1.32) Phosphorus Level 3.7 mg/dL (2.6-4.7) Magnesium Level 1.2 mg/dL (1.8-2.4) Test 03/09/18 08:33 03/09/18 10:40 03/09/18 14:15 03/09/18 14:30 O2 Saturation 97 % (92-99) Arterial Blood pH 7.42 (7.35-7.45) Arterial Blood pCO2 at Patient Temp 34 mmHg (35-46) Arterial Blood pO2 at Patient Temp 106 mmHg (65-108) Arterial Blood HCO3 22 mmol/L (21-28) Arterial Blood Base Excess -2 mmol/L (-3-3) FiO2 50% White Blood Count 10.8 x10^3/uL (4.0-11.0) 12.6 x10^3/uL (4.0-11.0) Red Blood Count 4.33 x10^6/uL (3.50-5.40) 4.20 x10^6/uL (3.50-5.40) Hemoglobin 13.4 g/dL (12.0-15.5) 12.9 g/dL (12.0-15.5) Hematocrit 37.5 % (36.0-47.0) 36.5 % (36.0-47.0) Mean Corpuscular Volume 87 fL (79-100) 87 fL (79-100) Mean Corpuscular Hemoglobin 31 pg (25-35) 31 pg (25-35) Mean Corpuscular Hemoglobin Concent 36 g/dL (31-37) 36 g/dL (31-37) Red Cell Distribution Width 15.1 % (11.5-14.5) 15.0 % (11.5-14.5) Platelet Count 79 x10^3/uL (140-400) 79 x10^3/uL (140-400) Neutrophils (%) (Auto) 70 % (31-73) Lymphocytes (%) (Auto) 20 % (24-48) Monocytes (%) (Auto) 10 % (0-9) Eosinophils (%) (Auto) 0 % (0-3) Basophils (%) (Auto) 0 % (0-3) Neutrophils # (Auto) 7.5 x10^3uL (1.8-7.7) Lymphocytes # (Auto) 2.1 x10^3/uL (1.0-4.8) Monocytes # (Auto) 1.1 x10^3/uL (0.0-1.1) Eosinophils # (Auto) 0.0 x10^3/uL (0.0-0.7) Basophils # (Auto) 0.0 x10^3/uL (0.0-0.2) Prothrombin Time 13.8 SEC (11.7-14.0) Prothromb Time International Ratio 1.1 (0.8-1.1) Fibrinogen 217 mg/dL (200-440) Lactic Acid Level 2.2 mmol/L (0.4-2.0) Uric Acid 4.6 mg/dL (2.6-6.0) Creatine Kinase 629 U/L (26-192) Test 03/09/18 16:30 03/09/18 18:15 03/09/18 21:50 03/10/18 05:20 Urine Collection Type Unknown Urine Color Yellow Urine Clarity Clear Urine pH 6.0 Urine Specific [place] 1.025 Urine Protein 15.2 mg/dL (Not Estab.) Urine Glucose (UA) Negative mg/dL (NEG) Urine Ketones (Stick) Negative mg/dL (NEG) Urine Blood Negative (NEG) Urine Nitrite Negative (NEG) Urine Bilirubin Negative (NEG) Urine Urobilinogen Dipstick 0.2 mg/dL (0.2 mg/dL) Urine Leukocyte Esterase Small (NEG) Urine RBC 1-2 /HPF (0-2) Urine WBC 11-20 /HPF (0-4) Urine Squamous Epithelial Cells Few /LPF Urine Bacteria Few /HPF (0-FEW) Urine Hyaline Casts Few /HPF Urine Mucus Marked /LPF Urine Random Sodium <60 mmol/L (Not Estab.) Urine Creatinine 96.7 mg/dL (Not Estab.) Urine Protein/Creatinine Ratio 157 mg/g creat (0-200) Potassium Level 3.8 mmol/L (3.5-5.1) 3.9 mmol/L (3.5-5.1) Magnesium Level 2.2 mg/dL (1.8-2.4) 1.3 mg/dL (1.8-2.4) White Blood Count 15.9 x10^3/uL (4.0-11.0) Red Blood Count 4.46 x10^6/uL (3.50-5.40) Hemoglobin 13.6 g/dL (12.0-15.5) 12.0 g/dL (12.0-15.5) Hematocrit 38.8 % (36.0-47.0) Mean Corpuscular Volume 87 fL (79-100) Mean Corpuscular Hemoglobin 31 pg (25-35) Mean Corpuscular Hemoglobin Concent 35 g/dL (31-37) Red Cell Distribution Width 15.3 % (11.5-14.5) Platelet Count 81 x10^3/uL (140-400) Sodium Level 149 mmol/L (136-145) Chloride Level 117 mmol/L (98-107) Carbon Dioxide Level 25 mmol/L (21-32) Anion Gap 7 (6-14) Blood Urea Nitrogen 24 mg/dL (7-20) Creatinine 0.6 mg/dL (0.6-1.0) Estimated GFR (Cockcroft-Gault) 98.8 Glucose Level 119 mg/dL (70-99) Calcium Level 7.7 mg/dL (8.5-10.1) Phosphorus Level 2.5 mg/dL (2.6-4.7) Albumin 2.1 g/dL (3.4-5.0) Laboratory Tests Test 03/09/18 10:40 03/09/18 14:15 03/09/18 14:30 03/09/18 16:30 White Blood Count 10.8 x10^3/uL (4.0-11.0) 12.6 x10^3/uL (4.0-11.0) Red Blood Count 4.33 x10^6/uL (3.50-5.40) 4.20 x10^6/uL (3.50-5.40) Hemoglobin 13.4 g/dL (12.0-15.5) 12.9 g/dL (12.0-15.5) Hematocrit 37.5 % (36.0-47.0) 36.5 % (36.0-47.0) Mean Corpuscular Volume 87 fL (79-100) 87 fL (79-100) Mean Corpuscular Hemoglobin 31 pg (25-35) 31 pg (25-35) Mean Corpuscular Hemoglobin Concent 36 g/dL (31-37) 36 g/dL (31-37) Red Cell Distribution Width 15.1 % (11.5-14.5) 15.0 % (11.5-14.5) Platelet Count 79 x10^3/uL (140-400) 79 x10^3/uL (140-400) Neutrophils (%) (Auto) 70 % (31-73) Lymphocytes (%) (Auto) 20 % (24-48) Monocytes (%) (Auto) 10 % (0-9) Eosinophils (%) (Auto) 0 % (0-3) Basophils (%) (Auto) 0 % (0-3) Neutrophils # (Auto) 7.5 x10^3uL (1.8-7.7) Lymphocytes # (Auto) 2.1 x10^3/uL (1.0-4.8) Monocytes # (Auto) 1.1 x10^3/uL (0.0-1.1) Eosinophils # (Auto) 0.0 x10^3/uL (0.0-0.7) Basophils # (Auto) 0.0 x10^3/uL (0.0-0.2) Prothrombin Time 13.8 SEC (11.7-14.0) Prothromb Time International Ratio 1.1 (0.8-1.1) Fibrinogen 217 mg/dL (200-440) Lactic Acid Level 2.2 mmol/L (0.4-2.0) Uric Acid 4.6 mg/dL (2.6-6.0) Creatine Kinase 629 U/L (26-192) Urine Collection Type Unknown Urine Color Yellow Urine Clarity Clear Urine pH 6.0 Urine Specific [place] 1.025 Urine Protein 15.2 mg/dL (Not Estab.) Urine Glucose (UA) Negative mg/dL (NEG) Urine Ketones (Stick) Negative mg/dL (NEG) Urine Blood Negative (NEG) Urine Nitrite Negative (NEG) Urine Bilirubin Negative (NEG) Urine Urobilinogen Dipstick 0.2 mg/dL (0.2 mg/dL) Urine Leukocyte Esterase Small (NEG) Urine RBC 1-2 /HPF (0-2) Urine WBC 11-20 /HPF (0-4) Urine Squamous Epithelial Cells Few /LPF Urine Bacteria Few /HPF (0-FEW) Urine Hyaline Casts Few /HPF Urine Mucus Marked /LPF Urine Random Sodium <60 mmol/L (Not Estab.) Urine Creatinine 96.7 mg/dL (Not Estab.) Urine Protein/Creatinine Ratio 157 mg/g creat (0-200) Test 03/09/18 18:15 03/09/18 21:50 03/10/18 05:20 Potassium Level 3.8 mmol/L (3.5-5.1) 3.9 mmol/L (3.5-5.1) Magnesium Level 2.2 mg/dL (1.8-2.4) 1.3 mg/dL (1.8-2.4) White Blood Count 15.9 x10^3/uL (4.0-11.0) Red Blood Count 4.46 x10^6/uL (3.50-5.40) Hemoglobin 13.6 g/dL (12.0-15.5) 12.0 g/dL (12.0-15.5) Hematocrit 38.8 % (36.0-47.0) Mean Corpuscular Volume 87 fL (79-100) Mean Corpuscular Hemoglobin 31 pg (25-35) Mean Corpuscular Hemoglobin Concent 35 g/dL (31-37) Red Cell Distribution Width 15.3 % (11.5-14.5) Platelet Count 81 x10^3/uL (140-400) Sodium Level 149 mmol/L (136-145) Chloride Level 117 mmol/L (98-107) Carbon Dioxide Level 25 mmol/L (21-32) Anion Gap 7 (6-14) Blood Urea Nitrogen 24 mg/dL (7-20) Creatinine 0.6 mg/dL (0.6-1.0) Estimated GFR (Cockcroft-Gault) 98.8 Glucose Level 119 mg/dL (70-99) Calcium Level 7.7 mg/dL (8.5-10.1) Phosphorus Level 2.5 mg/dL (2.6-4.7) Albumin 2.1 g/dL (3.4-5.0) Medications Active Scripts Medications Dose Route/Sig Max Daily Dose Days Date Category Prilosec Otc (Omeprazole Magnesium) 20 Mg Tablet.dr 1 Tab PO DAILY 03/07/18 Reported Simvastatin 20 Mg Tablet 1 Tab PO QHS 03/07/18 Reported Comments ABG shows good gas exchange on FiO2 of .35 CXR pending Impression . 1. respiratory failure post-op 2. gi bleed stabilized 3. cirrhosis 4. hx resected hepatocellular carcinoma Plan . will review cxr. If that is stable will hold sedation and give spontaneous breathing trial with possible extubation. EBENEZER ECHEVERRIA MD Mar 10, 2018 10:06
--- NOTE | 2018-03-10 10:25 | RAD ---
Portable chest, 03/10/2018: HISTORY: Patient on ventilator Comparison is made to yesterday's study. The tip of the ET tube lies well above the gray. An NG tube extends into the proximal aspect of the stomach. A sidehole lies at the level the GE junction. An additional tube overlying the left upper abdomen probably represents a surgical drain. A right jugular central venous catheter extends into the inferior aspect of the superior vena cava. The heart size and pulmonary vascularity are normal. There is an unchanged opacity in the left cardiophrenic angle suggesting atelectasis/infiltrate. The right lung is clear. There is no evidence of pleural fluid. IMPRESSION: No significant change since yesterday's study. Electronically signed by: Carlos Singer MD (03/10/2018 10:21 AM) [facility]
[2018-03-10] MEDS: CHLORHEXIDINE 0.12% 15 ML MOUTHWASH. MM SCH ×2 (10:32→21:00)
[2018-03-10 10:39] LABS: FIO2 ABG 35
--- NOTE | 2018-03-10 11:50 | PDOC ---
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 will give NS 500cc bolus and asked ICU nurse to talk to renal. 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 Hb stable. Na 149. low urine output, got 500cc NS bolus last night. Vitals Vitals Vital Signs Date Time Temp Pulse Resp B/P (MAP) Pulse Ox O2 Delivery O2 Flow Rate FiO2 03/10/18 11:33 100 Ventilator 03/10/18 11:00 90 14 124/62 (82) 03/10/18 07:00 99.0 99.0 Physical Exam Physical Exam intubated, sedated General: Other (sedated) Heart: Regular rate, Normal S1, Normal S2 Lungs: Clear Abdomen: Soft (TERE with thin serosang fluid) Extremities: No clubbing, No cyanosis Skin: No rashes, No breakdown Labs LABS Laboratory Tests Test 03/09/18 14:15 03/09/18 14:30 03/09/18 16:30 03/09/18 18:15 White Blood Count 12.6 x10^3/uL (4.0-11.0) Red Blood Count 4.20 x10^6/uL (3.50-5.40) Hemoglobin 12.9 g/dL (12.0-15.5) Hematocrit 36.5 % (36.0-47.0) Mean Corpuscular Volume 87 fL (79-100) Mean Corpuscular Hemoglobin 31 pg (25-35) Mean Corpuscular Hemoglobin Concent 36 g/dL (31-37) Red Cell Distribution Width 15.0 % (11.5-14.5) Platelet Count 79 x10^3/uL (140-400) Lactic Acid Level 2.2 mmol/L (0.4-2.0) Uric Acid 4.6 mg/dL (2.6-6.0) Creatine Kinase 629 U/L (26-192) Urine Collection Type Unknown Urine Color Yellow Urine Clarity Clear Urine pH 6.0 Urine Specific [place] 1.025 Urine Protein 15.2 mg/dL (Not Estab.) Urine Glucose (UA) Negative mg/dL (NEG) Urine Ketones (Stick) Negative mg/dL (NEG) Urine Blood Negative (NEG) Urine Nitrite Negative (NEG) Urine Bilirubin Negative (NEG) Urine Urobilinogen Dipstick 0.2 mg/dL (0.2 mg/dL) Urine Leukocyte Esterase Small (NEG) Urine RBC 1-2 /HPF (0-2) Urine WBC 11-20 /HPF (0-4) Urine Squamous Epithelial Cells Few /LPF Urine Bacteria Few /HPF (0-FEW) Urine Hyaline Casts Few /HPF Urine Mucus Marked /LPF Urine Random Sodium <60 mmol/L (Not Estab.) Urine Creatinine 96.7 mg/dL (Not Estab.) Urine Protein/Creatinine Ratio 157 mg/g creat (0-200) Potassium Level 3.8 mmol/L (3.5-5.1) Magnesium Level 2.2 mg/dL (1.8-2.4) Test 03/09/18 21:50 03/10/18 05:20 03/10/18 09:35 White Blood Count 15.9 x10^3/uL (4.0-11.0) Red Blood Count 4.46 x10^6/uL (3.50-5.40) Hemoglobin 13.6 g/dL (12.0-15.5) 12.0 g/dL (12.0-15.5) Hematocrit 38.8 % (36.0-47.0) Mean Corpuscular Volume 87 fL (79-100) Mean Corpuscular Hemoglobin 31 pg (25-35) Mean Corpuscular Hemoglobin Concent 35 g/dL (31-37) Red Cell Distribution Width 15.3 % (11.5-14.5) Platelet Count 81 x10^3/uL (140-400) Sodium Level 149 mmol/L (136-145) Potassium Level 3.9 mmol/L (3.5-5.1) Chloride Level 117 mmol/L (98-107) Carbon Dioxide Level 25 mmol/L (21-32) Anion Gap 7 (6-14) Blood Urea Nitrogen 24 mg/dL (7-20) Creatinine 0.6 mg/dL (0.6-1.0) Estimated GFR (Cockcroft-Gault) 98.8 Glucose Level 119 mg/dL (70-99) Calcium Level 7.7 mg/dL (8.5-10.1) Phosphorus Level 2.5 mg/dL (2.6-4.7) Magnesium Level 1.3 mg/dL (1.8-2.4) Albumin 2.1 g/dL (3.4-5.0) O2 Saturation 98 % (92-99) Arterial Blood pH 7.46 (7.35-7.45) Arterial Blood pCO2 at Patient Temp 36 mmHg (35-46) Arterial Blood pO2 at Patient Temp 106 mmHg (65-108) Arterial Blood HCO3 25 mmol/L (21-28) Arterial Blood Base Excess 1 mmol/L (-3-3) FiO2 35 Assessment and Plan Assessmemt and Plan Problems Medical Problems: (1) Hypotension Status: Acute Comment Review of Relevant I have reviewed the following items scottie (where applicable) has been applied. Labs Laboratory Tests Test 03/08/18 12:10 03/08/18 14:53 03/08/18 16:35 03/08/18 17:01 White Blood Count 7.4 x10^3/uL (4.0-11.0) 15.0 x10^3/uL (4.0-11.0) Red Blood Count 2.10 x10^6/uL (3.50-5.40) 3.65 x10^6/uL (3.50-5.40) Hemoglobin 6.4 g/dL (12.0-15.5) 10.9 g/dL (12.0-15.5) Hematocrit 18.3 % (36.0-47.0) 31.6 % (36.0-47.0) Mean Corpuscular Volume 87 fL (79-100) 87 fL (79-100) Mean Corpuscular Hemoglobin 31 pg (25-35) 30 pg (25-35) Mean Corpuscular Hemoglobin Concent 35 g/dL (31-37) 35 g/dL (31-37) Red Cell Distribution Width 16.0 % (11.5-14.5) 15.4 % (11.5-14.5) Platelet Count 119 x10^3/uL (140-400) 102 x10^3/uL (140-400) Prothrombin Time 18.2 SEC (11.7-14.0) 16.8 SEC (11.7-14.0) Prothromb Time International Ratio 1.5 (0.8-1.1) 1.4 (0.8-1.1) Neutrophils (%) (Auto) 77 % (31-73) Lymphocytes (%) (Auto) 18 % (24-48) Monocytes (%) (Auto) 4 % (0-9) Eosinophils (%) (Auto) 0 % (0-3) Basophils (%) (Auto) 1 % (0-3) Neutrophils # (Auto) 11.5 x10^3uL (1.8-7.7) Lymphocytes # (Auto) 2.7 x10^3/uL (1.0-4.8) Monocytes # (Auto) 0.6 x10^3/uL (0.0-1.1) Eosinophils # (Auto) 0.0 x10^3/uL (0.0-0.7) Basophils # (Auto) 0.1 x10^3/uL (0.0-0.2) Activated Partial Thromboplast Time 38 SEC (24-38) Fibrinogen 207 mg/dL (200-440) Sodium Level 144 mmol/L (136-145) Potassium Level 4.0 mmol/L (3.5-5.1) Chloride Level 112 mmol/L (98-107) Carbon Dioxide Level 19 mmol/L (21-32) Anion Gap 13 (6-14) Blood Urea Nitrogen 16 mg/dL (7-20) Creatinine 0.7 mg/dL (0.6-1.0) Estimated GFR (Cockcroft-Gault) 82.7 Glucose Level 206 mg/dL (70-99) 207 mg/dL (70-99) 220 mg/dL (70-99) Calcium Level 7.1 mg/dL (8.5-10.1) Ionized Calcium 0.84 mmol/L (1.13-1.32) Bedside Hematocrit 15 % (36-40) 17 % (36-40) Arterial Blood pH (Temp corrected) 7.23 7.24 Arterial Blood pCO2 (Temp correct) 38 mmHg 44 mmHg Arterial Blood pO2 (Temp corrected) 327 mmHg 317 mmHg Bedside Venous pH 7.23 (7.32-7.42) Bedside Venous pCO2 38 mmHg (41-51) Bedside Venous pO2 327 mmHg (20-40) Bedside Venous HCO3 16 mmol/L (24-28) Bedside Venous Blood Total CO2 17 mmol/L (21-32) Bedside Venous Blood O2 Saturation 100 % Bedside Venous Blood Base Excess -12 mmol/L (0-3) POC Venous Hemoglobin (Calc) 5.1 g/dL (12-15) Bedside FiO2 100 100.0 Bedside Sodium 147 mmol/L (135-145) 151 mmol/L (135-145) Bedside Potassium 3.9 mmol/L (3.5-5.0) 3.2 mmol/L (3.5-5.0) Bedside Ionized Calcium (Amilcar) 0.85 mmol/L (1.13-1.32) 1.34 mmol/L (1.13-1.32) Bedside Hemoglobin (Calculated) 5.8 g/dL (12-15) Bedside Arterial pH 7.24 (7.35-7.45) Bedside Arterial pCO2 44 mmHg (35-45) Bedside Arterial pO2 317 mmHg (75-100) Bedside Arterial HCO3 19 mmol/L (21-28) Bedside Arterial Total CO2 20 mmol/L (21-32) Arterial Bld O2 Saturation (Measur) 100 % (95-99) Bedside Arterial Blood Base Excess -9 mmol/L (0-3) Test 03/08/18 18:57 03/08/18 19:36 03/08/18 19:40 03/08/18 20:00 Bedside Hemoglobin (Calculated) 6.5 g/dL (12-15) Bedside Hematocrit 19 % (36-40) Bedside Arterial pH 7.27 (7.35-7.45) Arterial Blood pH (Temp corrected) 7.28 7.38 Bedside Arterial pCO2 52 mmHg (35-45) Arterial Blood pCO2 (Temp correct) 49 mmHg 38 mmHg Bedside Arterial pO2 416 mmHg (75-100) Arterial Blood pO2 (Temp corrected) 411 mmHg 132 mmHg Bedside Arterial HCO3 24 mmol/L (21-28) Bedside Arterial Total CO2 25 mmol/L (21-32) Arterial Bld O2 Saturation (Measur) 100 % (95-99) Bedside Arterial Blood Base Excess -3 mmol/L (0-3) Bedside FiO2 100.0 Bedside Sodium 155 mmol/L (135-145) Bedside Potassium 3.1 mmol/L (3.5-5.0) Glucose Level 194 mg/dL (70-99) 192 mg/dL (70-99) Bedside Ionized Calcium (Amilcar) 1.17 mmol/L (1.13-1.32) Glucose (Fingerstick) 151 mg/dL (70-99) White Blood Count 6.0 x10^3/uL (4.0-11.0) Red Blood Count 3.11 x10^6/uL (3.50-5.40) Hemoglobin 9.4 g/dL (12.0-15.5) Hematocrit 26.9 % (36.0-47.0) Mean Corpuscular Volume 87 fL (79-100) Mean Corpuscular Hemoglobin 30 pg (25-35) Mean Corpuscular Hemoglobin Concent 35 g/dL (31-37) Red Cell Distribution Width 14.7 % (11.5-14.5) Platelet Count 43 x10^3/uL (140-400) Neutrophils (%) (Auto) 81 % (31-73) Lymphocytes (%) (Auto) 12 % (24-48) Monocytes (%) (Auto) 7 % (0-9) Eosinophils (%) (Auto) 0 % (0-3) Basophils (%) (Auto) 0 % (0-3) Neutrophils # (Auto) 4.9 x10^3uL (1.8-7.7) Lymphocytes # (Auto) 0.7 x10^3/uL (1.0-4.8) Monocytes # (Auto) 0.4 x10^3/uL (0.0-1.1) Eosinophils # (Auto) 0.0 x10^3/uL (0.0-0.7) Basophils # (Auto) 0.0 x10^3/uL (0.0-0.2) Platelet Estimate Decreased (ADEQUATE) Prothrombin Time 19.2 SEC (11.7-14.0) Prothromb Time International Ratio 1.6 (0.8-1.1) Sodium Level 158 mmol/L (136-145) Potassium Level 3.3 mmol/L (3.5-5.1) Chloride Level 120 mmol/L (98-107) Carbon Dioxide Level 24 mmol/L (21-32) Anion Gap 14 (6-14) Blood Urea Nitrogen 13 mg/dL (7-20) Creatinine 0.6 mg/dL (0.6-1.0) Estimated GFR (Cockcroft-Gault) 98.8 BUN/Creatinine Ratio 22 (6-20) Calcium Level 9.7 mg/dL (8.5-10.1) Total Bilirubin 1.1 mg/dL (0.2-1.0) Aspartate Amino Transf (AST/SGOT) 26 U/L (15-37) Alanine Aminotransferase (ALT/SGPT) 24 U/L (14-59) Alkaline Phosphatase 39 U/L (46-116) Total Protein 4.0 g/dL (6.4-8.2) Albumin 2.4 g/dL (3.4-5.0) Albumin/Globulin Ratio 1.5 (1.0-1.7) O2 Saturation 98 % (92-99) Arterial Blood pH 7.35 (7.35-7.45) Arterial Blood pCO2 at Patient Temp 42 mmHg (35-46) Arterial Blood pO2 at Patient Temp 145 mmHg (65-108) Arterial Blood HCO3 23 mmol/L (21-28) Arterial Blood Base Excess -3 mmol/L (-3-3) FiO2 50 Test 03/08/18 23:40 03/09/18 00:42 03/09/18 02:59 03/09/18 05:50 White Blood Count 9.5 x10^3/uL (4.0-11.0) 10.2 x10^3/uL (4.0-11.0) 8.9 x10^3/uL (4.0-11.0) Red Blood Count 2.01 x10^6/uL (3.50-5.40) 2.11 x10^6/uL (3.50-5.40) 4.50 x10^6/uL (3.50-5.40) Hemoglobin 6.2 g/dL (12.0-15.5) 6.5 g/dL (12.0-15.5) 13.6 g/dL (12.0-15.5) Hematocrit 17.3 % (36.0-47.0) 18.2 % (36.0-47.0) 39.2 % (36.0-47.0) Mean Corpuscular Volume 86 fL (79-100) 86 fL (79-100) 87 fL (79-100) Mean Corpuscular Hemoglobin 31 pg (25-35) 31 pg (25-35) 30 pg (25-35) Mean Corpuscular Hemoglobin Concent 36 g/dL (31-37) 36 g/dL (31-37) 35 g/dL (31-37) Red Cell Distribution Width 14.2 % (11.5-14.5) 14.5 % (11.5-14.5) 14.9 % (11.5-14.5) Platelet Count 154 x10^3/uL (140-400) 160 x10^3/uL (140-400) 79 x10^3/uL (140-400) Neutrophils (%) (Auto) 76 % (31-73) 73 % (31-73) Lymphocytes (%) (Auto) 16 % (24-48) 19 % (24-48) Monocytes (%) (Auto) 8 % (0-9) 8 % (0-9) Eosinophils (%) (Auto) 0 % (0-3) 0 % (0-3) Basophils (%) (Auto) 0 % (0-3) 0 % (0-3) Neutrophils # (Auto) 7.8 x10^3uL (1.8-7.7) 6.5 x10^3uL (1.8-7.7) Lymphocytes # (Auto) 1.7 x10^3/uL (1.0-4.8) 1.7 x10^3/uL (1.0-4.8) Monocytes # (Auto) 0.8 x10^3/uL (0.0-1.1) 0.7 x10^3/uL (0.0-1.1) Eosinophils # (Auto) 0.0 x10^3/uL (0.0-0.7) 0.0 x10^3/uL (0.0-0.7) Basophils # (Auto) 0.0 x10^3/uL (0.0-0.2) 0.0 x10^3/uL (0.0-0.2) Prothrombin Time 19.2 SEC (11.7-14.0) Prothromb Time International Ratio 1.6 (0.8-1.1) Fibrinogen 130 mg/dL (200-440) Sodium Level 157 mmol/L (136-145) 153 mmol/L (136-145) Potassium Level 4.1 mmol/L (3.5-5.1) 3.5 mmol/L (3.5-5.1) Chloride Level 119 mmol/L (98-107) 118 mmol/L (98-107) Carbon Dioxide Level 23 mmol/L (21-32) 24 mmol/L (21-32) Anion Gap 15 (6-14) 11 (6-14) Blood Urea Nitrogen 17 mg/dL (7-20) 18 mg/dL (7-20) Creatinine 0.7 mg/dL (0.6-1.0) 0.7 mg/dL (0.6-1.0) Estimated GFR (Cockcroft-Gault) 82.7 82.7 Glucose Level 187 mg/dL (70-99) 190 mg/dL (70-99) 155 mg/dL (70-99) Calcium Level 9.0 mg/dL (8.5-10.1) 8.4 mg/dL (8.5-10.1) Bedside Hemoglobin (Calculated) 7.8 g/dL (12-15) Bedside Hematocrit 23 % (36-40) Bedside Arterial pH 7.34 (7.35-7.45) Arterial Blood pH (Temp corrected) 7.35 Bedside Arterial pCO2 38 mmHg (35-45) Arterial Blood pCO2 (Temp correct) 36 mmHg Bedside Arterial pO2 313 mmHg (75-100) Arterial Blood pO2 (Temp corrected) 308 mmHg Bedside Arterial HCO3 20 mmol/L (21-28) Bedside Arterial Total CO2 22 mmol/L (21-32) Arterial Bld O2 Saturation (Measur) 100 % (95-99) Bedside Arterial Blood Base Excess -5 mmol/L (0-3) Bedside FiO2 100.0 Bedside Sodium 153 mmol/L (135-145) Bedside Potassium 3.7 mmol/L (3.5-5.0) Bedside Ionized Calcium (Amilcar) 1.08 mmol/L (1.13-1.32) Phosphorus Level 3.7 mg/dL (2.6-4.7) Magnesium Level 1.2 mg/dL (1.8-2.4) Test 03/09/18 08:33 03/09/18 10:40 03/09/18 14:15 03/09/18 14:30 O2 Saturation 97 % (92-99) Arterial Blood pH 7.42 (7.35-7.45) Arterial Blood pCO2 at Patient Temp 34 mmHg (35-46) Arterial Blood pO2 at Patient Temp 106 mmHg (65-108) Arterial Blood HCO3 22 mmol/L (21-28) Arterial Blood Base Excess -2 mmol/L (-3-3) FiO2 50% White Blood Count 10.8 x10^3/uL (4.0-11.0) 12.6 x10^3/uL (4.0-11.0) Red Blood Count 4.33 x10^6/uL (3.50-5.40) 4.20 x10^6/uL (3.50-5.40) Hemoglobin 13.4 g/dL (12.0-15.5) 12.9 g/dL (12.0-15.5) Hematocrit 37.5 % (36.0-47.0) 36.5 % (36.0-47.0) Mean Corpuscular Volume 87 fL (79-100) 87 fL (79-100) Mean Corpuscular Hemoglobin 31 pg (25-35) 31 pg (25-35) Mean Corpuscular Hemoglobin Concent 36 g/dL (31-37) 36 g/dL (31-37) Red Cell Distribution Width 15.1 % (11.5-14.5) 15.0 % (11.5-14.5) Platelet Count 79 x10^3/uL (140-400) 79 x10^3/uL (140-400) Neutrophils (%) (Auto) 70 % (31-73) Lymphocytes (%) (Auto) 20 % (24-48) Monocytes (%) (Auto) 10 % (0-9) Eosinophils (%) (Auto) 0 % (0-3) Basophils (%) (Auto) 0 % (0-3) Neutrophils # (Auto) 7.5 x10^3uL (1.8-7.7) Lymphocytes # (Auto) 2.1 x10^3/uL (1.0-4.8) Monocytes # (Auto) 1.1 x10^3/uL (0.0-1.1) Eosinophils # (Auto) 0.0 x10^3/uL (0.0-0.7) Basophils # (Auto) 0.0 x10^3/uL (0.0-0.2) Prothrombin Time 13.8 SEC (11.7-14.0) Prothromb Time International Ratio 1.1 (0.8-1.1) Fibrinogen 217 mg/dL (200-440) Lactic Acid Level 2.2 mmol/L (0.4-2.0) Uric Acid 4.6 mg/dL (2.6-6.0) Creatine Kinase 629 U/L (26-192) Test 03/09/18 16:30 03/09/18 18:15 03/09/18 21:50 03/10/18 05:20 Urine Collection Type Unknown Urine Color Yellow Urine Clarity Clear Urine pH 6.0 Urine Specific [place] 1.025 Urine Protein 15.2 mg/dL (Not Estab.) Urine Glucose (UA) Negative mg/dL (NEG) Urine Ketones (Stick) Negative mg/dL (NEG) Urine Blood Negative (NEG) Urine Nitrite Negative (NEG) Urine Bilirubin Negative (NEG) Urine Urobilinogen Dipstick 0.2 mg/dL (0.2 mg/dL) Urine Leukocyte Esterase Small (NEG) Urine RBC 1-2 /HPF (0-2) Urine WBC 11-20 /HPF (0-4) Urine Squamous Epithelial Cells Few /LPF Urine Bacteria Few /HPF (0-FEW) Urine Hyaline Casts Few /HPF Urine Mucus Marked /LPF Urine Random Sodium <60 mmol/L (Not Estab.) Urine Creatinine 96.7 mg/dL (Not Estab.) Urine Protein/Creatinine Ratio 157 mg/g creat (0-200) Potassium Level 3.8 mmol/L (3.5-5.1) 3.9 mmol/L (3.5-5.1) Magnesium Level 2.2 mg/dL (1.8-2.4) 1.3 mg/dL (1.8-2.4) White Blood Count 15.9 x10^3/uL (4.0-11.0) Red Blood Count 4.46 x10^6/uL (3.50-5.40) Hemoglobin 13.6 g/dL (12.0-15.5) 12.0 g/dL (12.0-15.5) Hematocrit 38.8 % (36.0-47.0) Mean Corpuscular Volume 87 fL (79-100) Mean Corpuscular Hemoglobin 31 pg (25-35) Mean Corpuscular Hemoglobin Concent 35 g/dL (31-37) Red Cell Distribution Width 15.3 % (11.5-14.5) Platelet Count 81 x10^3/uL (140-400) Sodium Level 149 mmol/L (136-145) Chloride Level 117 mmol/L (98-107) Carbon Dioxide Level 25 mmol/L (21-32) Anion Gap 7 (6-14) Blood Urea Nitrogen 24 mg/dL (7-20) Creatinine 0.6 mg/dL (0.6-1.0) Estimated GFR (Cockcroft-Gault) 98.8 Glucose Level 119 mg/dL (70-99) Calcium Level 7.7 mg/dL (8.5-10.1) Phosphorus Level 2.5 mg/dL (2.6-4.7) Albumin 2.1 g/dL (3.4-5.0) Test 03/10/18 09:35 O2 Saturation 98 % (92-99) Arterial Blood pH 7.46 (7.35-7.45) Arterial Blood pCO2 at Patient Temp 36 mmHg (35-46) Arterial Blood pO2 at Patient Temp 106 mmHg (65-108) Arterial Blood HCO3 25 mmol/L (21-28) Arterial Blood Base Excess 1 mmol/L (-3-3) FiO2 35 Laboratory Tests Test 03/09/18 14:15 03/09/18 14:30 03/09/18 16:30 03/09/18 18:15 White Blood Count 12.6 x10^3/uL (4.0-11.0) Red Blood Count 4.20 x10^6/uL (3.50-5.40) Hemoglobin 12.9 g/dL (12.0-15.5) Hematocrit 36.5 % (36.0-47.0) Mean Corpuscular Volume 87 fL (79-100) Mean Corpuscular Hemoglobin 31 pg (25-35) Mean Corpuscular Hemoglobin Concent 36 g/dL (31-37) Red Cell Distribution Width 15.0 % (11.5-14.5) Platelet Count 79 x10^3/uL (140-400) Lactic Acid Level 2.2 mmol/L (0.4-2.0) Uric Acid 4.6 mg/dL (2.6-6.0) Creatine Kinase 629 U/L (26-192) Urine Collection Type Unknown Urine Color Yellow Urine Clarity Clear Urine pH 6.0 Urine Specific [place] 1.025 Urine Protein 15.2 mg/dL (Not Estab.) Urine Glucose (UA) Negative mg/dL (NEG) Urine Ketones (Stick) Negative mg/dL (NEG) Urine Blood Negative (NEG) Urine Nitrite Negative (NEG) Urine Bilirubin Negative (NEG) Urine Urobilinogen Dipstick 0.2 mg/dL (0.2 mg/dL) Urine Leukocyte Esterase Small (NEG) Urine RBC 1-2 /HPF (0-2) Urine WBC 11-20 /HPF (0-4) Urine Squamous Epithelial Cells Few /LPF Urine Bacteria Few /HPF (0-FEW) Urine Hyaline Casts Few /HPF Urine Mucus Marked /LPF Urine Random Sodium <60 mmol/L (Not Estab.) Urine Creatinine 96.7 mg/dL (Not Estab.) Urine Protein/Creatinine Ratio 157 mg/g creat (0-200) Potassium Level 3.8 mmol/L (3.5-5.1) Magnesium Level 2.2 mg/dL (1.8-2.4) Test 03/09/18 21:50 03/10/18 05:20 03/10/18 09:35 White Blood Count 15.9 x10^3/uL (4.0-11.0) Red Blood Count 4.46 x10^6/uL (3.50-5.40) Hemoglobin 13.6 g/dL (12.0-15.5) 12.0 g/dL (12.0-15.5) Hematocrit 38.8 % (36.0-47.0) Mean Corpuscular Volume 87 fL (79-100) Mean Corpuscular Hemoglobin 31 pg (25-35) Mean Corpuscular Hemoglobin Concent 35 g/dL (31-37) Red Cell Distribution Width 15.3 % (11.5-14.5) Platelet Count 81 x10^3/uL (140-400) Sodium Level 149 mmol/L (136-145) Potassium Level 3.9 mmol/L (3.5-5.1) Chloride Level 117 mmol/L (98-107) Carbon Dioxide Level 25 mmol/L (21-32) Anion Gap 7 (6-14) Blood Urea Nitrogen 24 mg/dL (7-20) Creatinine 0.6 mg/dL (0.6-1.0) Estimated GFR (Cockcroft-Gault) 98.8 Glucose Level 119 mg/dL (70-99) Calcium Level 7.7 mg/dL (8.5-10.1) Phosphorus Level 2.5 mg/dL (2.6-4.7) Magnesium Level 1.3 mg/dL (1.8-2.4) Albumin 2.1 g/dL (3.4-5.0) O2 Saturation 98 % (92-99) Arterial Blood pH 7.46 (7.35-7.45) Arterial Blood pCO2 at Patient Temp 36 mmHg (35-46) Arterial Blood pO2 at Patient Temp 106 mmHg (65-108) Arterial Blood HCO3 25 mmol/L (21-28) Arterial Blood Base Excess 1 mmol/L (-3-3) FiO2 35 Medications Current Medications Sodium Chloride 500 ml @ 500 mls/hr Q1H IV Last administered on 03/07/18at 18: 29; Start 03/07/18 at 18:30; Stop 03/07/18 at 18:42; Status DC Pantoprazole Sodium (PROTONIX VIAL for IV PUSH) 80 mg 1X ONCE IVP Last administered on 03/07/18at 19:00; Start 03/07/18 at 18:30; Stop 03/07/18 at 18 :32; Status DC Octreotide Acetate 500 mcg/ Sodium Chloride 101 ml @ 5.05 mls/hr CONT PRN IV SEE I/O RECORD Last administered on 03/09/18at 10:38; Start 03/07/18 at 19:30; Stop 03/09/18 at 11:47; Status DC Ondansetron HCl (Zofran) 4 mg PRN Q8HRS PRN IV NAUSEA/VOMITING; Start at 19:15; Stop 03/08/18 at 19:14; Status DC Iohexol (Omnipaque 300 Mg/ml) 75 ml 1X ONCE IV Last administered on at 20:32; Start 03/07/18 at 19:15; Stop 03/07/18 at 19:16; Status DC Info (CONTRAST GIVEN -- Rx MONITORING) 1 each PRN DAILY PRN MC SEE COMMENTS; Start 03/07/18 at 19:15; Stop 03/09/18 at 19:14; Status DC Propofol 20 ml @ As Directed STK-MED ONCE IV ; Start 03/07/18 at 22:37; Stop 03/07/18 at 22:38; Status DC Pantoprazole Sodium 80 mg/ Sodium Chloride 100 ml @ 10 mls/hr Q10H IV Last administered on 03/10/18at 04:35; Start 03/07/18 at 23:00 Ringer's Solution 1,000 ml @ 200 mls/hr Q5H IV Last administered on at 20:41; Start 03/07/18 at 23:15; Stop 03/09/18 at 10:58; Status DC Dopamine HCl/ Dextrose 250 ml @ 4.461 mls/ hr CONT PRN IV SEE I/O RECORD; Start 03/08/18 at 09:30 Lidocaine/Sodium Bicarbonate (Buffered Lidocaine 1%) 3 ml STK-MED ONCE .ROUTE ; Start 03/08/18 at 11:47; Stop 03/08/18 at 11:48; Status DC Iohexol (Omnipaque 300 Mg/ml) 100 ml STK-MED ONCE .ROUTE ; Start 03/08/18 at 11 :47; Stop 03/08/18 at 11:48; Status DC Heparin Sodium/ Sodium Chloride 1,000 ml @ As Directed STK-MED ONCE .ROUTE ; Start 03/08/18 at 11:47; Stop 03/08/18 at 11:48; Status DC Midazolam HCl (Versed) 2 mg STK-MED ONCE .ROUTE ; Start 03/08/18 at 12:06; Stop 03/08/18 at 12:07; Status DC Fentanyl Citrate (Fentanyl 2ml Vial) 100 mcg STK-MED ONCE .ROUTE ; Start at 12:06; Stop 03/08/18 at 12:07; Status DC Heparin Sodium/ Sodium Chloride (HEPARIN for ARTERIAL LINE FLUSH) 1,000 unit 1X ONCE IART Last administered on 03/08/18at 12:30; Start 03/08/18 at 12:30; Stop 03/08/18 at 12:31; Status DC Lidocaine/Sodium Bicarbonate (Buffered Lidocaine 1%) 3 ml 1X ONCE IJ Last administered on 03/08/18at 12:15; Start 03/08/18 at 12:15; Stop 03/08/18 at 12 :21; Status DC Midazolam HCl (Versed) 2 mg 1X ONCE IV ; Start 03/08/18 at 12:15; Stop at 12:21; Status DC Fentanyl Citrate (Fentanyl 2ml Vial) 100 mcg 1X ONCE IV Last administered on 03/08/18at 12:15; Start 03/08/18 at 12:15; Stop 03/08/18 at 12:21; Status DC Iohexol (Omnipaque 300 Mg/ml) 100 ml 1X ONCE IART Last administered on at 12:15; Start 03/08/18 at 12:15; Stop 03/08/18 at 12:21; Status DC Phenylephrine HCl (Wander-Synephrine Inj) 10 mg STK-MED ONCE .ROUTE ; Start at 13:25; Stop 03/08/18 at 13:26; Status DC Succinylcholine Chloride (Anectine) 200 mg STK-MED ONCE .ROUTE ; Start at 14:55; Stop 03/08/18 at 14:56; Status DC Propofol 20 ml @ As Directed STK-MED ONCE IV ; Start 03/08/18 at 14:55; Stop 03/08/18 at 14:56; Status DC Ketamine HCl (Ketamine) 50 mg STK-MED ONCE .ROUTE ; Start 03/08/18 at 14:55; Stop 03/08/18 at 14:57; Status DC Dexamethasone Sodium Phosphate (Decadron) 20 mg STK-MED ONCE .ROUTE ; Start at 14:56; Stop 03/08/18 at 14:58; Status DC Ondansetron HCl (Zofran) 4 mg STK-MED ONCE .ROUTE ; Start 03/08/18 at 14:57; Stop 03/08/18 at 14:58; Status DC Lidocaine HCl (Lidocaine Pf 2% Vial) 5 ml STK-MED ONCE .ROUTE ; Start 03/08/18 at 14:57; Stop 03/08/18 at 14:58; Status DC Propofol 20 ml @ As Directed STK-MED ONCE IV ; Start 03/08/18 at 14:57; Stop 03/08/18 at 14:58; Status DC Fentanyl Citrate (Fentanyl 5ml Vial) 250 mcg STK-MED ONCE .ROUTE ; Start at 15:54; Stop 03/08/18 at 15:55; Status DC Rocuronium [place] (Zemuron) 100 mg STK-MED ONCE .ROUTE ; Start 03/08/18 at 15: 55; Stop 03/08/18 at 15:57; Status DC Cefazolin Sodium 100 ml @ As Directed STK-MED ONCE IV ; Start 03/08/18 at 15: 57; Stop 03/08/18 at 15:59; Status DC Cellulose (Surgicel Hemostat 4x8) 1 each STK-MED ONCE .ROUTE Last administered on 03/08/18at 15:53; Start 03/08/18 at 16:27; Stop 03/08/18 at 16:28; Status DC Cellulose (Surgicel Hemostat 2x3) 1 each STK-MED ONCE .ROUTE Last administered on 03/08/18at 15:53; Start 03/08/18 at 16:42; Stop 03/08/18 at 16:44; Status DC Cellulose (Surgicel Hemostat 2x14) 1 each STK-MED ONCE .ROUTE ; Start 03/08/18 at 16:42; Stop 03/08/18 at 16:44; Status DC Cellulose (Surgicel Hemostat 4x8) 1 each STK-MED ONCE .ROUTE Last administered on 03/08/18at 15:53; Start 03/08/18 at 16:42; Stop 03/08/18 at 16:44; Status DC Calcium Chloride (Calcium Chloride) 1,000 mg STK-MED ONCE .ROUTE ; Start at 17:03; Stop 03/08/18 at 17:04; Status DC Calcium Chloride (Calcium Chloride) 1,000 mg STK-MED ONCE .ROUTE ; Start at 17:03; Stop 03/08/18 at 17:04; Status DC Sodium Bicarbonate (Sodium Bicarb Adult 8.4% Syr) 50 meq STK-MED ONCE .ROUTE ; Start 03/08/18 at 17:03; Stop 03/08/18 at 17:04; Status DC Sodium Bicarbonate (Sodium Bicarb Adult 8.4% Syr) 50 meq STK-MED ONCE .ROUTE ; Start 03/08/18 at 17:03; Stop 03/08/18 at 17:04; Status DC Epinephrine HCl (EPINEPHrine SYRINGE) 1 mg STK-MED ONCE .ROUTE ; Start at 17:03; Stop 03/08/18 at 17:04; Status DC Albumin Human 500 ml @ As Directed STK-MED ONCE IV ; Start 03/08/18 at 17:03; Stop 03/08/18 at 17:04; Status DC Sodium Bicarbonate (Sodium Bicarb Adult 8.4% Syr) 50 meq STK-MED ONCE .ROUTE ; Start 03/08/18 at 17:07; Stop 03/08/18 at 17:08; Status DC Sodium Bicarbonate (Sodium Bicarb Adult 8.4% Syr) 50 meq STK-MED ONCE .ROUTE ; Start 03/08/18 at 17:07; Stop 03/08/18 at 17:08; Status DC Cellulose (Surgicel Hemostat 4x8) 1 each STK-MED ONCE TP Last administered on 03/08/18at 15:53; Start 03/08/18 at 15:53; Stop 03/08/18 at 17:40; Status DC Sodium Bicarbonate (Sodium Bicarb Adult 8.4% Syr) 50 meq STK-MED ONCE .ROUTE ; Start 03/08/18 at 17:35; Stop 03/08/18 at 17:37; Status DC Calcium Chloride (Calcium Chloride) 1,000 mg STK-MED ONCE .ROUTE ; Start at 17:35; Stop 03/08/18 at 17:37; Status DC Albumin Human 500 ml @ As Directed STK-MED ONCE IV ; Start 03/08/18 at 17:41; Stop 03/08/18 at 17:43; Status DC Norepinephrine Bitartrate 250 ml @ 1.875 mls/ hr 1X ONCE IV Last administered on 03/08/18at 21:00; Start 03/08/18 at 17:45; Stop 03/09/18 at 08 :10; Status DC Vasopressin 40 unit/Dextrose 102 ml @ 6 mls/hr 1X ONCE IV Last administered on 03/08/18at 20:41; Start 03/08/18 at 18:00; Stop 03/09/18 at 10:59; Status DC Calcium Chloride (Calcium Chloride) 1,000 mg STK-MED ONCE .ROUTE ; Start at 17:57; Stop 03/08/18 at 17:59; Status DC Sodium Bicarbonate (Sodium Bicarb Adult 8.4% Syr) 50 meq STK-MED ONCE .ROUTE ; Start 03/08/18 at 18:04; Stop 03/08/18 at 18:06; Status DC Sodium Bicarbonate (Sodium Bicarb Adult 8.4% Syr) 50 meq STK-MED ONCE .ROUTE ; Start 03/08/18 at 18:05; Stop 03/08/18 at 18:06; Status DC Sodium Bicarbonate (Sodium Bicarb Adult 8.4% Syr) 50 meq STK-MED ONCE .ROUTE ; Start 03/08/18 at 18:07; Stop 03/08/18 at 18:08; Status DC Sodium Bicarbonate (Sodium Bicarb Adult 8.4% Syr) 50 meq STK-MED ONCE .ROUTE ; Start 03/08/18 at 18:07; Stop 03/08/18 at 18:08; Status DC Epinephrine HCl (EPINEPHrine SYRINGE) 1 mg STK-MED ONCE .ROUTE ; Start at 18:40; Stop 03/08/18 at 18:41; Status DC Prochlorperazine Edisylate (Compazine) 10 mg STK-MED ONCE .ROUTE ; Start at 18:42; Stop 03/08/18 at 18:44; Status DC Fentanyl Citrate (Fentanyl 2ml Vial) 100 mcg STK-MED ONCE .ROUTE ; Start at 18:43; Stop 03/08/18 at 18:44; Status DC Sevoflurane (Ultane) 90 ml STK-MED ONCE IH ; Start 03/08/18 at 18:48; Stop at 18:49; Status DC Cellulose (Surgicel Hemostat 2x3) 1 each STK-MED ONCE TP Last administered on 03/08/18at 15:55; Start 03/08/18 at 15:55; Stop 03/08/18 at 19:04; Status DC Cellulose (Surgicel Hemostat 2x3) 1 each STK-MED ONCE TP Last administered on 03/08/18at 15:53; Start 03/08/18 at 15:53; Stop 03/08/18 at 19:04; Status DC Propofol 100 ml @ As Directed STK-MED ONCE IV ; Start 03/08/18 at 19:56; Stop 03/08/18 at 19:58; Status DC Famotidine (Pepcid) 20 mg BID PO ; Start 03/08/18 at 21:00; Stop 03/09/18 at 08:11; Status DC Sodium Chloride (Normal Saline Flush) 3 ml QSHIFT PRN IV AFTER MEDS AND BLOOD DRAWS; Start 03/08/18 at 20:45; Status Cancel Morphine Sulfate (Morphine Sulfate) 1 mg PRN Q1HR PRN IV PAIN Last administered on 03/08/18at 21:12; Start 03/08/18 at 20:45 Ondansetron HCl (Zofran) 4 mg PRN Q6HRS PRN IV NAUESA, 1ST CHOICE; Start 03/08 at 20:45 Fentanyl Citrate 30 ml @ 0 mls/hr CONT PRN IV SEE PROTOCOL Last administered on 03/09/18at 23:16; Start 03/08/18 at 22:15 Fentanyl Citrate (Fentanyl 2ml Vial) 25 mcg PRN Q1HR PRN IV SEE COMMENTS; Start 03/08/18 at 22:15 Fentanyl Citrate (Fentanyl 2ml Vial) 50 mcg PRN Q1HR PRN IV SEE COMMENTS Last administered on 03/08/18at 22:41; Start 03/08/18 at 22:15 Chlorhexidine Gluconate (Peridex) 15 ml BID MM Last administered on 03/10/18at 10 :32; Start 03/09/18 at 09:00 Midazolam HCl 100 ml @ 0 mls/hr CONT PRN IV SEE PROTOCOL Last administered on 03/09/18at 21:43; Start 03/08/18 at 22:15 Factor IX (Pha) (Novoseven Rt) 1 mg 1X ONCE IV Last administered on at 01:09; Start 03/09/18 at 01:00; Stop 03/09/18 at 01:01; Status DC Lorazepam (Ativan) 2 mg STK-MED ONCE .ROUTE ; Start 03/09/18 at 01:15; Stop at 01:16; Status DC Norepinephrine Bitartrate 250 ml @ 1.875 mls/ hr CONT PRN IV SEE I/O RECORD Last administered on 03/09/18at 17:41; Start 03/09/18 at 01:45 Cefazolin Sodium/ Dextrose 50 ml @ 100 mls/hr 1X PREOP PRN IV PRIOR TO PROCEDURE Last administered on 03/09/18at 02:00; Start 03/09/18 at 02:00; Stop 03/10/18 at 01:59; Status DC Rocuronium [place] (Zemuron) 100 mg STK-MED ONCE .ROUTE ; Start 03/09/18 at 01: 57; Stop 03/09/18 at 01:59; Status DC Fentanyl Citrate (Fentanyl 5ml Vial) 250 mcg STK-MED ONCE .ROUTE ; Start at 02:13; Stop 03/09/18 at 02:14; Status DC Cellulose (Surgicel Hemostat 2x3) 1 each STK-MED ONCE .ROUTE ; Start 03/09/18 at 02:23; Stop 03/09/18 at 02:25; Status DC Cellulose (Surgicel Hemostat 2x14) 1 each STK-MED ONCE .ROUTE ; Start 03/09/18 at 02:23; Stop 03/09/18 at 02:25; Status DC Cellulose (Surgicel Hemostat 4x8) 1 each STK-MED ONCE .ROUTE Last administered on 03/09/18at 02:04; Start 03/09/18 at 02:23; Stop 03/09/18 at 02:25; Status DC Sodium Chloride (Normal Saline Flush) 3 ml QSHIFT PRN IV AFTER MEDS AND BLOOD DRAWS; Start 03/09/18 at 03:30 Cellulose (Surgicel Hemostat 4x8) 1 each STK-MED ONCE TP Last administered on 03/09/18at 02:04; Start 03/09/18 at 02:04; Stop 03/09/18 at 03:20; Status DC Cellulose (Surgicel Hemostat 4x8) 1 each STK-MED ONCE TP Last administered on 03/09/18at 02:04; Start 03/09/18 at 02:04; Stop 03/09/18 at 03:20; Status DC Sodium Bicarbonate (Sodium Bicarb Adult 8.4% Syr) 150 meq STK-MED ONCE .ROUTE ; Start 03/08/18 at 10:00; Stop 03/09/18 at 10:30; Status DC Dopamine HCl/ Dextrose (DOPamine 400MG/ 250ML PREMIX) 400 mg STK-MED ONCE IV ; Start 03/08/18 at 10:00; Stop 03/09/18 at 10:30; Status DC Potassium Chloride/Dextrose 1,000 ml @ 100 mls/hr Q10H IV Last administered on 03/09/18at 11:22; Start 03/09/18 at 11:00; Stop 03/09/18 at 20:59; Status DC Magnesium Sulfate/ Dextrose 100 ml @ 25 mls/hr 1X ONCE IV Last administered on 03/09/18at 13:45; Start 03/09/18 at 12:45; Stop 03/09/18 at 16:44; Status DC Potassium Chloride/Water 50 ml @ 50 mls/hr 1X ONCE IV Last administered on at 13:43; Start 03/09/18 at 12:45; Stop 03/09/18 at 13:44; Status DC Magnesium Sulfate 50 ml @ 25 mls/hr PRN DAILY PRN IV for Mag < 1.7 on am labs Last administered on 03/10/18at 06:17; Start 03/09/18 at 13:45 Sodium Chloride 500 ml @ 500 mls/hr QIDPRN PRN IV U/O <30 cc/hr Last administered on 03/10/18at 09:00; Start 03/09/18 at 19:45 Info (Tpn Per Pharmacy) 1 each PRN DAILY PRN MC SEE COMMENTS; Start 03/10/18 at 09:00 Potassium Phosphate 13.6 mmol/Dextrose 104.5333 ml @ 52.267 m... Q2H IV Last administered on 03/10/18at 10:34; Start 03/10/18 at 10:00; Stop 03/10/18 at 11:59 Active Scripts Active Reported Prilosec Otc (Omeprazole Magnesium) 20 Mg Tablet.dr 1 Tab PO DAILY Simvastatin 20 Mg Tablet 1 Tab PO QHS Vitals/I & O Vital Sign - Last 24 Hours 03/09/18 03/09/18 03/09/18 03/09/18 11:57 12:00 12:00 12:00 Temp 99.3 99.3 Pulse 76 76 Resp 16 16 B/P (MAP) 115/53 (73) 115/53 (73) Pulse Ox 100 100 O2 Delivery Ventilator Ventilator Mechanical Ventilator 03/09/18 03/09/18 03/09/18 03/09/18 12:41 13:00 14:00 14:00 Temp 99.3 99.5 99.3 99.5 Pulse 75 74 74 Resp 16 16 B/P (MAP) 99/47 (64) 100/47 (64) Pulse Ox 100 100 100 O2 Delivery Ventilator Ventilator Ventilator 03/09/18 03/09/18 03/09/18 03/09/18 15:00 15:04 16:00 16:00 Pulse 78 78 Resp 16 B/P (MAP) 90/46 (61) 100/50 (67) Pulse Ox 100 100 O2 Delivery Ventilator Ventilator Mechanical Ventilator 03/09/18 03/09/18 03/09/18 03/09/18 16:00 16:56 17:00 18:00 Temp 99.3 99.3 99.3 99.3 99.3 99.3 Pulse 78 79 78 Resp 16 16 16 B/P (MAP) 100/50 (67) 93/50 (64) 19/53 (42) Pulse Ox 100 100 100 100 O2 Delivery Ventilator Ventilator Ventilator Ventilator 03/09/18 03/09/18 03/09/18 03/09/18 19:00 20:00 20:00 20:00 Temp 99.3 99.3 Pulse 78 79 79 Resp 15 16 B/P (MAP) 108/50 (69) 104/47 (66) 104/47 (66) Pulse Ox 100 100 O2 Delivery Ventilator Ventilator Mechanical Ventilator 03/09/18 03/09/18 03/09/18 03/09/18 20:17 21:00 21:18 22:00 Pulse 79 80 Resp 14 14 B/P (MAP) 92/63 (73) 99/65 (76) Pulse Ox 100 100 100 100 O2 Delivery Ventilator Ventilator Ventilator Ventilator 03/09/18 03/09/18 03/09/18 03/09/18 23:00 23:16 23:23 23:40 Pulse 90 90 Resp 18 16 B/P (MAP) 128/57 (80) 123/54 (77) Pulse Ox 100 100 100 O2 Delivery Ventilator Ventilator Ventilator 03/09/18 03/10/18 03/10/18 03/10/18 23:40 00:00 01:00 01:25 Temp 99.3 99.3 Pulse 92 93 Resp 16 14 B/P (MAP) 124/55 (78) 127/57 (80) Pulse Ox 100 100 100 O2 Delivery Mechanical Ventilator Ventilator Ventilator Ventilator 03/10/18 03/10/18 03/10/18 03/10/18 02:00 03:00 03:50 04:00 Pulse 92 92 Resp 17 14 B/P (MAP) 128/64 (85) 125/54 (77) Pulse Ox 100 100 100 O2 Delivery Ventilator Ventilator Ventilator Mechanical Ventilator 03/10/18 03/10/18 03/10/18 03/10/18 04:00 04:00 05:00 05:44 Temp 99.0 99.0 Pulse 90 90 89 Resp 14 14 B/P (MAP) 127/57 (80) 127/57 (80) 129/55 (79) Pulse Ox 100 100 100 O2 Delivery Ventilator Ventilator Ventilator 03/10/18 03/10/18 03/10/18 03/10/18 06:00 07:00 08:00 09:00 Temp 99.0 99.0 Pulse 87 84 84 86 Resp 16 14 15 15 B/P (MAP) 128/54 (78) 128/54 (78) 124/54 (77) 126/54 (78) Pulse Ox 100 100 99 100 O2 Delivery Ventilator Ventilator Ventilator Ventilator 03/10/18 03/10/18 03/10/18 10:00 11:00 11:33 Pulse 82 90 Resp 15 14 B/P (MAP) 108/52 (70) 124/62 (82) Pulse Ox 100 99 100 O2 Delivery Ventilator Ventilator Ventilator Intake and Output 03/09/18 03/09/18 03/10/18 15:01 23:01 07:01 Intake Total 135 ml 1927 ml 1258 ml Output Total 980 ml 1197 ml 1290 ml Balance -845 ml 730 ml -32 ml MIKE RAY MD Mar 10, 2018 11:50
--- NOTE | 2018-03-10 12:43 | PDOC ---
SUBJECTIVE ROS Follow-up for oliguria, electrolyte abnormalities Patient remains intubated. She is currently sedated but off of sedation medications. Patient is contemplated. TERE drainage continues to be approximately 2 L OBJECTIVE Vital Signs Vital Signs Date Time Temp Pulse Resp B/P (MAP) Pulse Ox O2 Delivery O2 Flow Rate FiO2 03/10/18 11:33 100 Ventilator 03/10/18 11:00 90 14 124/62 (82) 03/10/18 07:00 99.0 99.0 I & 0 Intake and Output 03/10/18 07:01 Intake Total 3320 ml Output Total 3467 ml Balance -147 ml Intake Oral 0 ml IV Total 3320 ml Output Urine Total 742 ml Gastric Drainage Total 500 ml Drainage Total 2225 ml PHYSICAL EXAM Physical Exam General Appearance: Sedated and intubated on the vent currently. In no Distress Eyes: Sclera appears anicteric Conjunctiva Normal EN: No EN Drainage Mucous Memb. moist, orally intubated Neck: no JVD min JVP Supple no Thyromegaly CVS: S1 S2 soft Murmur No Gallop No Rub no Edema Resp: no Rales no Rhonchi no Acc. Muscle use GI: BS -ve NO Bruit Non Tender Non Distended : no CVA tenderness; no Suprapubic Tenderness Assessment & Plan Oliguria: Suspect intravascular volume depletion: We will administer IV fluids and colloids as ordered. We'll need to replace TERE drainage aggressively as ordered Intra Vascular volume depletion with marginal blood pressures while sedated and intubated: IV fluids as required. Hyper natremia: Hypotonic IV fluids may be required as ordered Nutrition: PPN versus TPN Hypomagnesemia: Replace as ordered Lowish phosphorus: Replace as ordered with K-Phos Severe hypoalbuminemia: Precise etiology unclear. Patient had a significant protein gap at presentation. This appears to have resolved currently. COMMENT/RELEVANT DATA Meds Current Medications Medications (Trade) Dose Ordered Sig/Aliza Start Time Stop Time Status Last Admin Dose Admin Albumin Human 500 ml @ As Directed STK-MED ONCE 03/08/18 17:41 03/08/18 17:43 DC Calcium Chloride (Calcium Chloride) 1,000 mg STK-MED ONCE 03/08/18 17:57 03/08/18 17:59 DC Cefazolin Sodium 100 ml @ As Directed STK-MED ONCE 03/08/18 15:57 03/08/18 15:59 DC Cefazolin Sodium/ Dextrose 50 ml @ 100 mls/hr 1X PREOP PRN 03/09/18 02:00 03/10/18 01:59 DC 03/09/18 02:00 100 MLS/HR Cellulose (Surgicel Hemostat 2x14) 1 each STK-MED ONCE 03/09/18 02:23 03/09/18 02:25 DC Cellulose (Surgicel Hemostat 2x3) 1 each STK-MED ONCE 03/09/18 02:23 03/09/18 02:25 DC Cellulose (Surgicel Hemostat 4x8) 1 each STK-MED ONCE 03/09/18 02:04 03/09/18 03:20 DC 03/09/18 02:04 1 EACH Chlorhexidine Gluconate (Peridex) 15 ml BID 03/09/18 09:00 03/10/18 10:32 15 ML Dexamethasone Sodium Phosphate (Decadron) 20 mg STK-MED ONCE 03/08/18 14:56 03/08/18 14:58 DC Dopamine HCl/ Dextrose (DOPamine 400MG/ 250ML PREMIX) 400 mg STK-MED ONCE 03/08/18 10:00 03/09/18 10:30 DC Epinephrine HCl (EPINEPHrine SYRINGE) 1 mg STK-MED ONCE 03/08/18 18:40 03/08/18 18:41 DC Factor IX (Pha) (Novoseven Rt) 1 mg 1X ONCE 03/09/18 01:00 03/09/18 01:01 DC 03/09/18 01:09 1 MG Famotidine (Pepcid) 20 mg BID 03/08/18 21:00 03/09/18 08:11 DC Fentanyl Citrate (Fentanyl 2ml Vial) 50 mcg PRN Q1HR PRN 03/08/18 22:15 03/08/18 22:41 50 MCG Fentanyl Citrate (Fentanyl 5ml Vial) 250 mcg STK-MED ONCE 03/09/18 02:13 03/09/18 02:14 DC Heparin Sodium/ Sodium Chloride (HEPARIN for ARTERIAL LINE FLUSH) 1,000 unit 1X ONCE 03/08/18 12:30 03/08/18 12:31 DC 03/08/18 12:30 1,000 UNIT Info (CONTRAST GIVEN -- Rx MONITORING) 1 each PRN DAILY PRN 03/07/18 19:15 03/09/18 19:14 DC Info (Tpn Per Pharmacy) 1 each PRN DAILY PRN 03/10/18 09:00 Iohexol (Omnipaque 300 Mg/ml) 100 ml 1X ONCE 03/08/18 12:15 03/08/18 12:21 DC 03/08/18 12:15 95 ML Ketamine HCl (Ketamine) 50 mg STK-MED ONCE 03/08/18 14:55 03/08/18 14:57 DC Lidocaine HCl (Lidocaine Pf 2% Vial) 5 ml STK-MED ONCE 03/08/18 14:57 03/08/18 14:58 DC Lidocaine/Sodium Bicarbonate (Buffered Lidocaine 1%) 3 ml 1X ONCE 03/08/18 12:15 03/08/18 12:21 DC 03/08/18 12:15 5 ML Lorazepam (Ativan) 2 mg STK-MED ONCE 03/09/18 01:15 03/09/18 01:16 DC Magnesium Sulfate 50 ml @ 25 mls/hr PRN DAILY PRN 03/09/18 13:45 03/10/18 06:17 25 MLS/HR Magnesium Sulfate/ Dextrose 100 ml @ 25 mls/hr 1X ONCE 03/09/18 12:45 03/09/18 16:44 DC 03/09/18 13:45 25 MLS/HR Midazolam HCl 100 ml @ 0 mls/hr CONT PRN 03/08/18 22:15 03/09/18 21:43 5 MLS/HR Midazolam HCl (Versed) 2 mg 1X ONCE 03/08/18 12:15 03/08/18 12:21 DC Morphine Sulfate (Morphine Sulfate) 1 mg PRN Q1HR PRN 03/08/18 20:45 03/08/18 21:12 1 MG Norepinephrine Bitartrate 250 ml @ 1.875 mls/ hr CONT PRN 03/09/18 01:45 03/09/18 17:41 3.75 MLS/HR Octreotide Acetate 500 mcg/ Sodium Chloride 101 ml @ 5.05 mls/hr CONT PRN 03/07/18 19:30 03/09/18 11:47 DC 03/09/18 10:38 5.05 MLS/HR Ondansetron HCl (Zofran) 4 mg PRN Q6HRS PRN 03/08/18 20:45 Pantoprazole Sodium (PROTONIX VIAL for IV PUSH) 80 mg 1X ONCE 03/07/18 18:30 03/07/18 18:32 DC 03/07/18 19:00 80 MG Pantoprazole Sodium 80 mg/ Sodium Chloride 100 ml @ 10 mls/hr Q10H 03/07/18 23:00 03/10/18 04:35 10 MLS/HR Phenylephrine HCl ([place]ander-Synephrine Inj) 10 mg STK-MED ONCE 03/08/18 13:25 03/08/18 13:26 DC Potassium Chloride/Dextrose 1,000 ml @ 100 mls/hr Q10H 03/09/18 11:00 03/09/18 20:59 DC 03/09/18 11:22 100 MLS/HR Potassium Chloride/Water 50 ml @ 50 mls/hr 1X ONCE 03/09/18 12:45 03/09/18 13:44 DC 03/09/18 13:43 50 MLS/HR Potassium Phosphate 13.6 mmol/Dextrose 104.5333 ml @ 52.267 m... Q2H 03/10/18 10:00 03/10/18 11:59 DC 03/10/18 10:34 52.267 MLS/HR Prochlorperazine Edisylate (Compazine) 10 mg STK-MED ONCE 03/08/18 18:42 03/08/18 18:44 DC Propofol 100 ml @ As Directed STK-MED ONCE 03/08/18 19:56 03/08/18 19:58 DC Ringer's Solution 1,000 ml @ 200 mls/hr Q5H 03/07/18 23:15 03/09/18 10:58 DC 03/08/18 20:41 200 MLS/HR Rocuronium [place] (Zemuron) 100 mg STK-MED ONCE 03/09/18 01:57 03/09/18 01:59 DC Sevoflurane (Ultane) 90 ml STK-MED ONCE 03/08/18 18:48 03/08/18 18:49 DC Sodium Bicarbonate (Sodium Bicarb Adult 8.4% Syr) 150 meq STK-MED ONCE 03/08/18 10:00 03/09/18 10:30 DC Sodium Chloride 500 ml @ 500 mls/hr QIDPRN PRN 03/09/18 19:45 03/10/18 09:00 500 MLS/HR Sodium Chloride (Normal Saline Flush) 3 ml QSHIFT PRN 03/09/18 03:30 Succinylcholine Chloride (Anectine) 200 mg STK-MED ONCE 03/08/18 14:55 03/08/18 14:56 DC Vasopressin 40 unit/Dextrose 102 ml @ 6 mls/hr 1X ONCE 03/08/18 18:00 03/09/18 10:59 DC 03/08/18 20:41 6 MLS/HR Lab Laboratory Tests Test 03/09/18 14:15 03/09/18 14:30 03/09/18 16:30 03/09/18 18:15 White Blood Count 12.6 x10^3/uL (4.0-11.0) Red Blood Count 4.20 x10^6/uL (3.50-5.40) Hemoglobin 12.9 g/dL (12.0-15.5) Hematocrit 36.5 % (36.0-47.0) Mean Corpuscular Volume 87 fL (79-100) Mean Corpuscular Hemoglobin 31 pg (25-35) Mean Corpuscular Hemoglobin Concent 36 g/dL (31-37) Red Cell Distribution Width 15.0 % (11.5-14.5) Platelet Count 79 x10^3/uL (140-400) Lactic Acid Level 2.2 mmol/L (0.4-2.0) Uric Acid 4.6 mg/dL (2.6-6.0) Creatine Kinase 629 U/L (26-192) Urine Collection Type Unknown Urine Color Yellow Urine Clarity Clear Urine pH 6.0 Urine Specific [place] 1.025 Urine Protein 15.2 mg/dL (Not Estab.) Urine Glucose (UA) Negative mg/dL (NEG) Urine Ketones (Stick) Negative mg/dL (NEG) Urine Blood Negative (NEG) Urine Nitrite Negative (NEG) Urine Bilirubin Negative (NEG) Urine Urobilinogen Dipstick 0.2 mg/dL (0.2 mg/dL) Urine Leukocyte Esterase Small (NEG) Urine RBC 1-2 /HPF (0-2) Urine WBC 11-20 /HPF (0-4) Urine Squamous Epithelial Cells Few /LPF Urine Bacteria Few /HPF (0-FEW) Urine Hyaline Casts Few /HPF Urine Mucus Marked /LPF Urine Random Sodium <60 mmol/L (Not Estab.) Urine Creatinine 96.7 mg/dL (Not Estab.) Urine Protein/Creatinine Ratio 157 mg/g creat (0-200) Potassium Level 3.8 mmol/L (3.5-5.1) Magnesium Level 2.2 mg/dL (1.8-2.4) Test 03/09/18 21:50 03/10/18 05:20 03/10/18 09:35 White Blood Count 15.9 x10^3/uL (4.0-11.0) Red Blood Count 4.46 x10^6/uL (3.50-5.40) Hemoglobin 13.6 g/dL (12.0-15.5) 12.0 g/dL (12.0-15.5) Hematocrit 38.8 % (36.0-47.0) Mean Corpuscular Volume 87 fL (79-100) Mean Corpuscular Hemoglobin 31 pg (25-35) Mean Corpuscular Hemoglobin Concent 35 g/dL (31-37) Red Cell Distribution Width 15.3 % (11.5-14.5) Platelet Count 81 x10^3/uL (140-400) Sodium Level 149 mmol/L (136-145) Potassium Level 3.9 mmol/L (3.5-5.1) Chloride Level 117 mmol/L (98-107) Carbon Dioxide Level 25 mmol/L (21-32) Anion Gap 7 (6-14) Blood Urea Nitrogen 24 mg/dL (7-20) Creatinine 0.6 mg/dL (0.6-1.0) Estimated GFR (Cockcroft-Gault) 98.8 Glucose Level 119 mg/dL (70-99) Calcium Level 7.7 mg/dL (8.5-10.1) Phosphorus Level 2.5 mg/dL (2.6-4.7) Magnesium Level 1.3 mg/dL (1.8-2.4) Albumin 2.1 g/dL (3.4-5.0) O2 Saturation 98 % (92-99) Arterial Blood pH 7.46 (7.35-7.45) Arterial Blood pCO2 at Patient Temp 36 mmHg (35-46) Arterial Blood pO2 at Patient Temp 106 mmHg (65-108) Arterial Blood HCO3 25 mmol/L (21-28) Arterial Blood Base Excess 1 mmol/L (-3-3) FiO2 35 Results All relevant outside records, renal labs, imaging studies, telemetry/EKG's were reviewed. BRAXTON HUFFMAN MD Mar 10, 2018 12:43
--- NOTE | 2018-03-10 13:22 | PDOC ---
G I PROGRESS NOTE Reason for Follow-up Acute blood loss anemia Subjective Intubated Physical Exam Lungs decreased BS CV S1 S2 ABD incision intat, -BS, soft Review of Relevant I have reviewed the following items scottie (where applicable) has been applied. Labs Laboratory Tests Test 03/08/18 14:53 03/08/18 16:35 03/08/18 17:01 03/08/18 18:57 White Blood Count 15.0 x10^3/uL (4.0-11.0) Red Blood Count 3.65 x10^6/uL (3.50-5.40) Hemoglobin 10.9 g/dL (12.0-15.5) Hematocrit 31.6 % (36.0-47.0) Mean Corpuscular Volume 87 fL (79-100) Mean Corpuscular Hemoglobin 30 pg (25-35) Mean Corpuscular Hemoglobin Concent 35 g/dL (31-37) Red Cell Distribution Width 15.4 % (11.5-14.5) Platelet Count 102 x10^3/uL (140-400) Neutrophils (%) (Auto) 77 % (31-73) Lymphocytes (%) (Auto) 18 % (24-48) Monocytes (%) (Auto) 4 % (0-9) Eosinophils (%) (Auto) 0 % (0-3) Basophils (%) (Auto) 1 % (0-3) Neutrophils # (Auto) 11.5 x10^3uL (1.8-7.7) Lymphocytes # (Auto) 2.7 x10^3/uL (1.0-4.8) Monocytes # (Auto) 0.6 x10^3/uL (0.0-1.1) Eosinophils # (Auto) 0.0 x10^3/uL (0.0-0.7) Basophils # (Auto) 0.1 x10^3/uL (0.0-0.2) Prothrombin Time 16.8 SEC (11.7-14.0) Prothromb Time International Ratio 1.4 (0.8-1.1) Activated Partial Thromboplast Time 38 SEC (24-38) Fibrinogen 207 mg/dL (200-440) Sodium Level 144 mmol/L (136-145) Potassium Level 4.0 mmol/L (3.5-5.1) Chloride Level 112 mmol/L (98-107) Carbon Dioxide Level 19 mmol/L (21-32) Anion Gap 13 (6-14) Blood Urea Nitrogen 16 mg/dL (7-20) Creatinine 0.7 mg/dL (0.6-1.0) Estimated GFR (Cockcroft-Gault) 82.7 Glucose Level 206 mg/dL (70-99) 207 mg/dL (70-99) 220 mg/dL (70-99) 194 mg/dL (70-99) Calcium Level 7.1 mg/dL (8.5-10.1) Ionized Calcium 0.84 mmol/L (1.13-1.32) Bedside Hematocrit 15 % (36-40) 17 % (36-40) 19 % (36-40) Arterial Blood pH (Temp corrected) 7.23 7.24 7.28 Arterial Blood pCO2 (Temp correct) 38 mmHg 44 mmHg 49 mmHg Arterial Blood pO2 (Temp corrected) 327 mmHg 317 mmHg 411 mmHg Bedside Venous pH 7.23 (7.32-7.42) Bedside Venous pCO2 38 mmHg (41-51) Bedside Venous pO2 327 mmHg (20-40) Bedside Venous HCO3 16 mmol/L (24-28) Bedside Venous Blood Total CO2 17 mmol/L (21-32) Bedside Venous Blood O2 Saturation 100 % Bedside Venous Blood Base Excess -12 mmol/L (0-3) POC Venous Hemoglobin (Calc) 5.1 g/dL (12-15) Bedside FiO2 100 100.0 100.0 Bedside Sodium 147 mmol/L (135-145) 151 mmol/L (135-145) 155 mmol/L (135-145) Bedside Potassium 3.9 mmol/L (3.5-5.0) 3.2 mmol/L (3.5-5.0) 3.1 mmol/L (3.5-5.0) Bedside Ionized Calcium (Amilcar) 0.85 mmol/L (1.13-1.32) 1.34 mmol/L (1.13-1.32) 1.17 mmol/L (1.13-1.32) Bedside Hemoglobin (Calculated) 5.8 g/dL (12-15) 6.5 g/dL (12-15) Bedside Arterial pH 7.24 (7.35-7.45) 7.27 (7.35-7.45) Bedside Arterial pCO2 44 mmHg (35-45) 52 mmHg (35-45) Bedside Arterial pO2 317 mmHg (75-100) 416 mmHg (75-100) Bedside Arterial HCO3 19 mmol/L (21-28) 24 mmol/L (21-28) Bedside Arterial Total CO2 20 mmol/L (21-32) 25 mmol/L (21-32) Arterial Bld O2 Saturation (Measur) 100 % (95-99) 100 % (95-99) Bedside Arterial Blood Base Excess -9 mmol/L (0-3) -3 mmol/L (0-3) Test 03/08/18 19:36 03/08/18 19:40 03/08/18 20:00 03/08/18 23:40 Glucose (Fingerstick) 151 mg/dL (70-99) White Blood Count 6.0 x10^3/uL (4.0-11.0) 9.5 x10^3/uL (4.0-11.0) Red Blood Count 3.11 x10^6/uL (3.50-5.40) 2.01 x10^6/uL (3.50-5.40) Hemoglobin 9.4 g/dL (12.0-15.5) 6.2 g/dL (12.0-15.5) Hematocrit 26.9 % (36.0-47.0) 17.3 % (36.0-47.0) Mean Corpuscular Volume 87 fL (79-100) 86 fL (79-100) Mean Corpuscular Hemoglobin 30 pg (25-35) 31 pg (25-35) Mean Corpuscular Hemoglobin Concent 35 g/dL (31-37) 36 g/dL (31-37) Red Cell Distribution Width 14.7 % (11.5-14.5) 14.2 % (11.5-14.5) Platelet Count 43 x10^3/uL (140-400) 154 x10^3/uL (140-400) Neutrophils (%) (Auto) 81 % (31-73) Lymphocytes (%) (Auto) 12 % (24-48) Monocytes (%) (Auto) 7 % (0-9) Eosinophils (%) (Auto) 0 % (0-3) Basophils (%) (Auto) 0 % (0-3) Neutrophils # (Auto) 4.9 x10^3uL (1.8-7.7) Lymphocytes # (Auto) 0.7 x10^3/uL (1.0-4.8) Monocytes # (Auto) 0.4 x10^3/uL (0.0-1.1) Eosinophils # (Auto) 0.0 x10^3/uL (0.0-0.7) Basophils # (Auto) 0.0 x10^3/uL (0.0-0.2) Platelet Estimate Decreased (ADEQUATE) Prothrombin Time 19.2 SEC (11.7-14.0) Prothromb Time International Ratio 1.6 (0.8-1.1) Sodium Level 158 mmol/L (136-145) Potassium Level 3.3 mmol/L (3.5-5.1) Chloride Level 120 mmol/L (98-107) Carbon Dioxide Level 24 mmol/L (21-32) Anion Gap 14 (6-14) Blood Urea Nitrogen 13 mg/dL (7-20) Creatinine 0.6 mg/dL (0.6-1.0) Estimated GFR (Cockcroft-Gault) 98.8 BUN/Creatinine Ratio 22 (6-20) Glucose Level 192 mg/dL (70-99) Calcium Level 9.7 mg/dL (8.5-10.1) Total Bilirubin 1.1 mg/dL (0.2-1.0) Aspartate Amino Transf (AST/SGOT) 26 U/L (15-37) Alanine Aminotransferase (ALT/SGPT) 24 U/L (14-59) Alkaline Phosphatase 39 U/L (46-116) Total Protein 4.0 g/dL (6.4-8.2) Albumin 2.4 g/dL (3.4-5.0) Albumin/Globulin Ratio 1.5 (1.0-1.7) O2 Saturation 98 % (92-99) Arterial Blood pH 7.35 (7.35-7.45) Arterial Blood pH (Temp corrected) 7.38 Arterial Blood pCO2 at Patient Temp 42 mmHg (35-46) Arterial Blood pCO2 (Temp correct) 38 mmHg Arterial Blood pO2 at Patient Temp 145 mmHg (65-108) Arterial Blood pO2 (Temp corrected) 132 mmHg Arterial Blood HCO3 23 mmol/L (21-28) Arterial Blood Base Excess -3 mmol/L (-3-3) FiO2 50 Test 03/09/18 00:42 03/09/18 02:59 03/09/18 05:50 03/09/18 08:33 White Blood Count 10.2 x10^3/uL (4.0-11.0) 8.9 x10^3/uL (4.0-11.0) Red Blood Count 2.11 x10^6/uL (3.50-5.40) 4.50 x10^6/uL (3.50-5.40) Hemoglobin 6.5 g/dL (12.0-15.5) 13.6 g/dL (12.0-15.5) Hematocrit 18.2 % (36.0-47.0) 39.2 % (36.0-47.0) Mean Corpuscular Volume 86 fL (79-100) 87 fL (79-100) Mean Corpuscular Hemoglobin 31 pg (25-35) 30 pg (25-35) Mean Corpuscular Hemoglobin Concent 36 g/dL (31-37) 35 g/dL (31-37) Red Cell Distribution Width 14.5 % (11.5-14.5) 14.9 % (11.5-14.5) Platelet Count 160 x10^3/uL (140-400) 79 x10^3/uL (140-400) Neutrophils (%) (Auto) 76 % (31-73) 73 % (31-73) Lymphocytes (%) (Auto) 16 % (24-48) 19 % (24-48) Monocytes (%) (Auto) 8 % (0-9) 8 % (0-9) Eosinophils (%) (Auto) 0 % (0-3) 0 % (0-3) Basophils (%) (Auto) 0 % (0-3) 0 % (0-3) Neutrophils # (Auto) 7.8 x10^3uL (1.8-7.7) 6.5 x10^3uL (1.8-7.7) Lymphocytes # (Auto) 1.7 x10^3/uL (1.0-4.8) 1.7 x10^3/uL (1.0-4.8) Monocytes # (Auto) 0.8 x10^3/uL (0.0-1.1) 0.7 x10^3/uL (0.0-1.1) Eosinophils # (Auto) 0.0 x10^3/uL (0.0-0.7) 0.0 x10^3/uL (0.0-0.7) Basophils # (Auto) 0.0 x10^3/uL (0.0-0.2) 0.0 x10^3/uL (0.0-0.2) Prothrombin Time 19.2 SEC (11.7-14.0) Prothromb Time International Ratio 1.6 (0.8-1.1) Fibrinogen 130 mg/dL (200-440) Sodium Level 157 mmol/L (136-145) 153 mmol/L (136-145) Potassium Level 4.1 mmol/L (3.5-5.1) 3.5 mmol/L (3.5-5.1) Chloride Level 119 mmol/L (98-107) 118 mmol/L (98-107) Carbon Dioxide Level 23 mmol/L (21-32) 24 mmol/L (21-32) Anion Gap 15 (6-14) 11 (6-14) Blood Urea Nitrogen 17 mg/dL (7-20) 18 mg/dL (7-20) Creatinine 0.7 mg/dL (0.6-1.0) 0.7 mg/dL (0.6-1.0) Estimated GFR (Cockcroft-Gault) 82.7 82.7 Glucose Level 187 mg/dL (70-99) 190 mg/dL (70-99) 155 mg/dL (70-99) Calcium Level 9.0 mg/dL (8.5-10.1) 8.4 mg/dL (8.5-10.1) Bedside Hemoglobin (Calculated) 7.8 g/dL (12-15) Bedside Hematocrit 23 % (36-40) Bedside Arterial pH 7.34 (7.35-7.45) Arterial Blood pH (Temp corrected) 7.35 Bedside Arterial pCO2 38 mmHg (35-45) Arterial Blood pCO2 (Temp correct) 36 mmHg Bedside Arterial pO2 313 mmHg (75-100) Arterial Blood pO2 (Temp corrected) 308 mmHg Bedside Arterial HCO3 20 mmol/L (21-28) Bedside Arterial Total CO2 22 mmol/L (21-32) Arterial Bld O2 Saturation (Measur) 100 % (95-99) Bedside Arterial Blood Base Excess -5 mmol/L (0-3) Bedside FiO2 100.0 Bedside Sodium 153 mmol/L (135-145) Bedside Potassium 3.7 mmol/L (3.5-5.0) Bedside Ionized Calcium (Amilcar) 1.08 mmol/L (1.13-1.32) Phosphorus Level 3.7 mg/dL (2.6-4.7) Magnesium Level 1.2 mg/dL (1.8-2.4) O2 Saturation 97 % (92-99) Arterial Blood pH 7.42 (7.35-7.45) Arterial Blood pCO2 at Patient Temp 34 mmHg (35-46) Arterial Blood pO2 at Patient Temp 106 mmHg (65-108) Arterial Blood HCO3 22 mmol/L (21-28) Arterial Blood Base Excess -2 mmol/L (-3-3) FiO2 50% Test 03/09/18 10:40 03/09/18 14:15 03/09/18 14:30 03/09/18 16:30 White Blood Count 10.8 x10^3/uL (4.0-11.0) 12.6 x10^3/uL (4.0-11.0) Red Blood Count 4.33 x10^6/uL (3.50-5.40) 4.20 x10^6/uL (3.50-5.40) Hemoglobin 13.4 g/dL (12.0-15.5) 12.9 g/dL (12.0-15.5) Hematocrit 37.5 % (36.0-47.0) 36.5 % (36.0-47.0) Mean Corpuscular Volume 87 fL (79-100) 87 fL (79-100) Mean Corpuscular Hemoglobin 31 pg (25-35) 31 pg (25-35) Mean Corpuscular Hemoglobin Concent 36 g/dL (31-37) 36 g/dL (31-37) Red Cell Distribution Width 15.1 % (11.5-14.5) 15.0 % (11.5-14.5) Platelet Count 79 x10^3/uL (140-400) 79 x10^3/uL (140-400) Neutrophils (%) (Auto) 70 % (31-73) Lymphocytes (%) (Auto) 20 % (24-48) Monocytes (%) (Auto) 10 % (0-9) Eosinophils (%) (Auto) 0 % (0-3) Basophils (%) (Auto) 0 % (0-3) Neutrophils # (Auto) 7.5 x10^3uL (1.8-7.7) Lymphocytes # (Auto) 2.1 x10^3/uL (1.0-4.8) Monocytes # (Auto) 1.1 x10^3/uL (0.0-1.1) Eosinophils # (Auto) 0.0 x10^3/uL (0.0-0.7) Basophils # (Auto) 0.0 x10^3/uL (0.0-0.2) Prothrombin Time 13.8 SEC (11.7-14.0) Prothromb Time International Ratio 1.1 (0.8-1.1) Fibrinogen 217 mg/dL (200-440) Lactic Acid Level 2.2 mmol/L (0.4-2.0) Uric Acid 4.6 mg/dL (2.6-6.0) Creatine Kinase 629 U/L (26-192) Urine Collection Type Unknown Urine Color Yellow Urine Clarity Clear Urine pH 6.0 Urine Specific [place] 1.025 Urine Protein 15.2 mg/dL (Not Estab.) Urine Glucose (UA) Negative mg/dL (NEG) Urine Ketones (Stick) Negative mg/dL (NEG) Urine Blood Negative (NEG) Urine Nitrite Negative (NEG) Urine Bilirubin Negative (NEG) Urine Urobilinogen Dipstick 0.2 mg/dL (0.2 mg/dL) Urine Leukocyte Esterase Small (NEG) Urine RBC 1-2 /HPF (0-2) Urine WBC 11-20 /HPF (0-4) Urine Squamous Epithelial Cells Few /LPF Urine Bacteria Few /HPF (0-FEW) Urine Hyaline Casts Few /HPF Urine Mucus Marked /LPF Urine Random Sodium <60 mmol/L (Not Estab.) Urine Creatinine 96.7 mg/dL (Not Estab.) Urine Protein/Creatinine Ratio 157 mg/g creat (0-200) Test 03/09/18 18:15 03/09/18 21:50 03/10/18 05:20 03/10/18 09:35 Potassium Level 3.8 mmol/L (3.5-5.1) 3.9 mmol/L (3.5-5.1) Magnesium Level 2.2 mg/dL (1.8-2.4) 1.3 mg/dL (1.8-2.4) White Blood Count 15.9 x10^3/uL (4.0-11.0) Red Blood Count 4.46 x10^6/uL (3.50-5.40) Hemoglobin 13.6 g/dL (12.0-15.5) 12.0 g/dL (12.0-15.5) Hematocrit 38.8 % (36.0-47.0) Mean Corpuscular Volume 87 fL (79-100) Mean Corpuscular Hemoglobin 31 pg (25-35) Mean Corpuscular Hemoglobin Concent 35 g/dL (31-37) Red Cell Distribution Width 15.3 % (11.5-14.5) Platelet Count 81 x10^3/uL (140-400) Sodium Level 149 mmol/L (136-145) Chloride Level 117 mmol/L (98-107) Carbon Dioxide Level 25 mmol/L (21-32) Anion Gap 7 (6-14) Blood Urea Nitrogen 24 mg/dL (7-20) Creatinine 0.6 mg/dL (0.6-1.0) Estimated GFR (Cockcroft-Gault) 98.8 Glucose Level 119 mg/dL (70-99) Calcium Level 7.7 mg/dL (8.5-10.1) Phosphorus Level 2.5 mg/dL (2.6-4.7) Albumin 2.1 g/dL (3.4-5.0) O2 Saturation 98 % (92-99) Arterial Blood pH 7.46 (7.35-7.45) Arterial Blood pCO2 at Patient Temp 36 mmHg (35-46) Arterial Blood pO2 at Patient Temp 106 mmHg (65-108) Arterial Blood HCO3 25 mmol/L (21-28) Arterial Blood Base Excess 1 mmol/L (-3-3) FiO2 35 Laboratory Tests Test 03/09/18 14:15 03/09/18 14:30 03/09/18 16:30 12/31/18 18:15 White Blood Count 12.6 x10^3/uL (4.0-11.0) Red Blood Count 4.20 x10^6/uL (3.50-5.40) Hemoglobin 12.9 g/dL (12.0-15.5) Hematocrit 36.5 % (36.0-47.0) Mean Corpuscular Volume 87 fL (79-100) Mean Corpuscular Hemoglobin 31 pg (25-35) Mean Corpuscular Hemoglobin Concent 36 g/dL (31-37) Red Cell Distribution Width 15.0 % (11.5-14.5) Platelet Count 79 x10^3/uL (140-400) Lactic Acid Level 2.2 mmol/L (0.4-2.0) Uric Acid 4.6 mg/dL (2.6-6.0) Creatine Kinase 629 U/L (26-192) Urine Collection Type Unknown Urine Color Yellow Urine Clarity Clear Urine pH 6.0 Urine Specific [place] 1.025 Urine Protein 15.2 mg/dL (Not Estab.) Urine Glucose (UA) Negative mg/dL (NEG) Urine Ketones (Stick) Negative mg/dL (NEG) Urine Blood Negative (NEG) Urine Nitrite Negative (NEG) Urine Bilirubin Negative (NEG) Urine Urobilinogen Dipstick 0.2 mg/dL (0.2 mg/dL) Urine Leukocyte Esterase Small (NEG) Urine RBC 1-2 /HPF (0-2) Urine WBC 11-20 /HPF (0-4) Urine Squamous Epithelial Cells Few /LPF Urine Bacteria Few /HPF (0-FEW) Urine Hyaline Casts Few /HPF Urine Mucus Marked /LPF Urine Random Sodium <60 mmol/L (Not Estab.) Urine Creatinine 96.7 mg/dL (Not Estab.) Urine Protein/Creatinine Ratio 157 mg/g creat (0-200) Potassium Level 3.8 mmol/L (3.5-5.1) Magnesium Level 2.2 mg/dL (1.8-2.4) Test 03/09/18 21:50 03/10/18 05:20 03/10/18 09:35 White Blood Count 15.9 x10^3/uL (4.0-11.0) Red Blood Count 4.46 x10^6/uL (3.50-5.40) Hemoglobin 13.6 g/dL (12.0-15.5) 12.0 g/dL (12.0-15.5) Hematocrit 38.8 % (36.0-47.0) Mean Corpuscular Volume 87 fL (79-100) Mean Corpuscular Hemoglobin 31 pg (25-35) Mean Corpuscular Hemoglobin Concent 35 g/dL (31-37) Red Cell Distribution Width 15.3 % (11.5-14.5) Platelet Count 81 x10^3/uL (140-400) Sodium Level 149 mmol/L (136-145) Potassium Level 3.9 mmol/L (3.5-5.1) Chloride Level 117 mmol/L (98-107) Carbon Dioxide Level 25 mmol/L (21-32) Anion Gap 7 (6-14) Blood Urea Nitrogen 24 mg/dL (7-20) Creatinine 0.6 mg/dL (0.6-1.0) Estimated GFR (Cockcroft-Gault) 98.8 Glucose Level 119 mg/dL (70-99) Calcium Level 7.7 mg/dL (8.5-10.1) Phosphorus Level 2.5 mg/dL (2.6-4.7) Magnesium Level 1.3 mg/dL (1.8-2.4) Albumin 2.1 g/dL (3.4-5.0) O2 Saturation 98 % (92-99) Arterial Blood pH 7.46 (7.35-7.45) Arterial Blood pCO2 at Patient Temp 36 mmHg (35-46) Arterial Blood pO2 at Patient Temp 106 mmHg (65-108) Arterial Blood HCO3 25 mmol/L (21-28) Arterial Blood Base Excess 1 mmol/L (-3-3) FiO2 35 Medications Current Medications Sodium Chloride 500 ml @ 500 mls/hr Q1H IV Last administered on 03/07/18at 18: 29; Start 03/07/18 at 18:30; Stop 03/07/18 at 18:42; Status DC Pantoprazole Sodium (PROTONIX VIAL for IV PUSH) 80 mg 1X ONCE IVP Last administered on 03/07/18at 19:00; Start 03/07/18 at 18:30; Stop 03/07/18 at 18 :32; Status DC Octreotide Acetate 500 mcg/ Sodium Chloride 101 ml @ 5.05 mls/hr CONT PRN IV SEE I/O RECORD Last administered on 03/09/18at 10:38; Start 03/07/18 at 19:30; Stop 03/09/18 at 11:47; Status DC Ondansetron HCl (Zofran) 4 mg PRN Q8HRS PRN IV NAUSEA/VOMITING; Start at 19:15; Stop 03/08/18 at 19:14; Status DC Iohexol (Omnipaque 300 Mg/ml) 75 ml 1X ONCE IV Last administered on at 20:32; Start 03/07/18 at 19:15; Stop 03/07/18 at 19:16; Status DC Info (CONTRAST GIVEN -- Rx MONITORING) 1 each PRN DAILY PRN MC SEE COMMENTS; Start 03/07/18 at 19:15; Stop 03/09/18 at 19:14; Status DC Propofol 20 ml @ As Directed STK-MED ONCE IV ; Start 03/07/18 at 22:37; Stop 03/07/18 at 22:38; Status DC Pantoprazole Sodium 80 mg/ Sodium Chloride 100 ml @ 10 mls/hr Q10H IV Last administered on 03/10/18at 04:35; Start 03/07/18 at 23:00 Ringer's Solution 1,000 ml @ 200 mls/hr Q5H IV Last administered on at 20:41; Start 03/07/18 at 23:15; Stop 03/09/18 at 10:58; Status DC Dopamine HCl/ Dextrose 250 ml @ 4.461 mls/ hr CONT PRN IV SEE I/O RECORD; Start 03/08/18 at 09:30 Lidocaine/Sodium Bicarbonate (Buffered Lidocaine 1%) 3 ml STK-MED ONCE .ROUTE ; Start 03/08/18 at 11:47; Stop 03/08/18 at 11:48; Status DC Iohexol (Omnipaque 300 Mg/ml) 100 ml STK-MED ONCE .ROUTE ; Start 03/08/18 at 11 :47; Stop 03/08/18 at 11:48; Status DC Heparin Sodium/ Sodium Chloride 1,000 ml @ As Directed STK-MED ONCE .ROUTE ; Start 03/08/18 at 11:47; Stop 03/08/18 at 11:48; Status DC Midazolam HCl (Versed) 2 mg STK-MED ONCE .ROUTE ; Start 03/08/18 at 12:06; Stop 03/08/18 at 12:07; Status DC Fentanyl Citrate (Fentanyl 2ml Vial) 100 mcg STK-MED ONCE .ROUTE ; Start at 12:06; Stop 03/08/18 at 12:07; Status DC Heparin Sodium/ Sodium Chloride (HEPARIN for ARTERIAL LINE FLUSH) 1,000 unit 1X ONCE IART Last administered on 03/08/18at 12:30; Start 03/08/18 at 12:30; Stop 03/08/18 at 12:31; Status DC Lidocaine/Sodium Bicarbonate (Buffered Lidocaine 1%) 3 ml 1X ONCE IJ Last administered on 03/08/18at 12:15; Start 03/08/18 at 12:15; Stop 03/08/18 at 12 :21; Status DC Midazolam HCl (Versed) 2 mg 1X ONCE IV ; Start 03/08/18 at 12:15; Stop at 12:21; Status DC Fentanyl Citrate (Fentanyl 2ml Vial) 100 mcg 1X ONCE IV Last administered on 03/08/18at 12:15; Start 03/08/18 at 12:15; Stop 03/08/18 at 12:21; Status DC Iohexol (Omnipaque 300 Mg/ml) 100 ml 1X ONCE IART Last administered on at 12:15; Start 03/08/18 at 12:15; Stop 03/08/18 at 12:21; Status DC Phenylephrine HCl (Wander-Synephrine Inj) 10 mg STK-MED ONCE .ROUTE ; Start at 13:25; Stop 03/08/18 at 13:26; Status DC Succinylcholine Chloride (Anectine) 200 mg STK-MED ONCE .ROUTE ; Start at 14:55; Stop 03/08/18 at 14:56; Status DC Propofol 20 ml @ As Directed STK-MED ONCE IV ; Start 03/08/18 at 14:55; Stop 03/08/18 at 14:56; Status DC Ketamine HCl (Ketamine) 50 mg STK-MED ONCE .ROUTE ; Start 03/08/18 at 14:55; Stop 03/08/18 at 14:57; Status DC Dexamethasone Sodium Phosphate (Decadron) 20 mg STK-MED ONCE .ROUTE ; Start at 14:56; Stop 03/08/18 at 14:58; Status DC Ondansetron HCl (Zofran) 4 mg STK-MED ONCE .ROUTE ; Start 03/08/18 at 14:57; Stop 03/08/18 at 14:58; Status DC Lidocaine HCl (Lidocaine Pf 2% Vial) 5 ml STK-MED ONCE .ROUTE ; Start 03/08/18 at 14:57; Stop 03/08/18 at 14:58; Status DC Propofol 20 ml @ As Directed STK-MED ONCE IV ; Start 03/08/18 at 14:57; Stop 03/08/18 at 14:58; Status DC Fentanyl Citrate (Fentanyl 5ml Vial) 250 mcg STK-MED ONCE .ROUTE ; Start at 15:54; Stop 03/08/18 at 15:55; Status DC Rocuronium Dorris (Zemuron) 100 mg STK-MED ONCE .ROUTE ; Start 03/08/18 at 15: 55; Stop 03/08/18 at 15:57; Status DC Cefazolin Sodium 100 ml @ As Directed STK-MED ONCE IV ; Start 03/08/18 at 15: 57; Stop 03/08/18 at 15:59; Status DC Cellulose (Surgicel Hemostat 4x8) 1 each STK-MED ONCE .ROUTE Last administered on 03/08/18at 15:53; Start 03/08/18 at 16:27; Stop 03/08/18 at 16:28; Status DC Cellulose (Surgicel Hemostat 2x3) 1 each STK-MED ONCE .ROUTE Last administered on 03/08/18at 15:53; Start 03/08/18 at 16:42; Stop 03/08/18 at 16:44; Status DC Cellulose (Surgicel Hemostat 2x14) 1 each STK-MED ONCE .ROUTE ; Start 03/08/18 at 16:42; Stop 03/08/18 at 16:44; Status DC Cellulose (Surgicel Hemostat 4x8) 1 each STK-MED ONCE .ROUTE Last administered on 03/08/18at 15:53; Start 03/08/18 at 16:42; Stop 03/08/18 at 16:44; Status DC Calcium Chloride (Calcium Chloride) 1,000 mg STK-MED ONCE .ROUTE ; Start at 17:03; Stop 03/08/18 at 17:04; Status DC Calcium Chloride (Calcium Chloride) 1,000 mg STK-MED ONCE .ROUTE ; Start at 17:03; Stop 03/08/18 at 17:04; Status DC Sodium Bicarbonate (Sodium Bicarb Adult 8.4% Syr) 50 meq STK-MED ONCE .ROUTE ; Start 03/08/18 at 17:03; Stop 03/08/18 at 17:04; Status DC Sodium Bicarbonate (Sodium Bicarb Adult 8.4% Syr) 50 meq STK-MED ONCE .ROUTE ; Start 03/08/18 at 17:03; Stop 03/08/18 at 17:04; Status DC Epinephrine HCl (EPINEPHrine SYRINGE) 1 mg STK-MED ONCE .ROUTE ; Start at 17:03; Stop 03/08/18 at 17:04; Status DC Albumin Human 500 ml @ As Directed STK-MED ONCE IV ; Start 03/08/18 at 17:03; Stop 03/08/18 at 17:04; Status DC Sodium Bicarbonate (Sodium Bicarb Adult 8.4% Syr) 50 meq STK-MED ONCE .ROUTE ; Start 03/08/18 at 17:07; Stop 03/08/18 at 17:08; Status DC Sodium Bicarbonate (Sodium Bicarb Adult 8.4% Syr) 50 meq STK-MED ONCE .ROUTE ; Start 03/08/18 at 17:07; Stop 03/08/18 at 17:08; Status DC Cellulose (Surgicel Hemostat 4x8) 1 each STK-MED ONCE TP Last administered on 03/08/18at 15:53; Start 03/08/18 at 15:53; Stop 03/08/18 at 17:40; Status DC Sodium Bicarbonate (Sodium Bicarb Adult 8.4% Syr) 50 meq STK-MED ONCE .ROUTE ; Start 03/08/18 at 17:35; Stop 03/08/18 at 17:37; Status DC Calcium Chloride (Calcium Chloride) 1,000 mg STK-MED ONCE .ROUTE ; Start at 17:35; Stop 03/08/18 at 17:37; Status DC Albumin Human 500 ml @ As Directed STK-MED ONCE IV ; Start 03/08/18 at 17:41; Stop 03/08/18 at 17:43; Status DC Norepinephrine Bitartrate 250 ml @ 1.875 mls/ hr 1X ONCE IV Last administered on 03/08/18at 21:00; Start 03/08/18 at 17:45; Stop 03/09/18 at 08 :10; Status DC Vasopressin 40 unit/Dextrose 102 ml @ 6 mls/hr 1X ONCE IV Last administered on 03/08/18at 20:41; Start 03/08/18 at 18:00; Stop 03/09/18 at 10:59; Status DC Calcium Chloride (Calcium Chloride) 1,000 mg STK-MED ONCE .ROUTE ; Start at 17:57; Stop 03/08/18 at 17:59; Status DC Sodium Bicarbonate (Sodium Bicarb Adult 8.4% Syr) 50 meq STK-MED ONCE .ROUTE ; Start 03/08/18 at 18:04; Stop 03/08/18 at 18:06; Status DC Sodium Bicarbonate (Sodium Bicarb Adult 8.4% Syr) 50 meq STK-MED ONCE .ROUTE ; Start 03/08/18 at 18:05; Stop 03/08/18 at 18:06; Status DC Sodium Bicarbonate (Sodium Bicarb Adult 8.4% Syr) 50 meq STK-MED ONCE .ROUTE ; Start 03/08/18 at 18:07; Stop 03/08/18 at 18:08; Status DC Sodium Bicarbonate (Sodium Bicarb Adult 8.4% Syr) 50 meq STK-MED ONCE .ROUTE ; Start 03/08/18 at 18:07; Stop 03/08/18 at 18:08; Status DC Epinephrine HCl (EPINEPHrine SYRINGE) 1 mg STK-MED ONCE .ROUTE ; Start at 18:40; Stop 03/08/18 at 18:41; Status DC Prochlorperazine Edisylate (Compazine) 10 mg STK-MED ONCE .ROUTE ; Start at 18:42; Stop 03/08/18 at 18:44; Status DC Fentanyl Citrate (Fentanyl 2ml Vial) 100 mcg STK-MED ONCE .ROUTE ; Start at 18:43; Stop 03/08/18 at 18:44; Status DC Sevoflurane (Ultane) 90 ml STK-MED ONCE IH ; Start 03/08/18 at 18:48; Stop at 18:49; Status DC Cellulose (Surgicel Hemostat 2x3) 1 each STK-MED ONCE TP Last administered on 03/08/18at 15:55; Start 03/08/18 at 15:55; Stop 03/08/18 at 19:04; Status DC Cellulose (Surgicel Hemostat 2x3) 1 each STK-MED ONCE TP Last administered on 03/08/18at 15:53; Start 03/08/18 at 15:53; Stop 03/08/18 at 19:04; Status DC Propofol 100 ml @ As Directed STK-MED ONCE IV ; Start 03/08/18 at 19:56; Stop 03/08/18 at 19:58; Status DC Famotidine (Pepcid) 20 mg BID PO ; Start 03/08/18 at 21:00; Stop 03/09/18 at 08:11; Status DC Sodium Chloride (Normal Saline Flush) 3 ml QSHIFT PRN IV AFTER MEDS AND BLOOD DRAWS; Start 03/08/18 at 20:45; Status Cancel Morphine Sulfate (Morphine Sulfate) 1 mg PRN Q1HR PRN IV PAIN Last administered on 03/08/18at 21:12; Start 03/08/18 at 20:45 Ondansetron HCl (Zofran) 4 mg PRN Q6HRS PRN IV NAUESA, 1ST CHOICE; Start 03/08 at 20:45 Fentanyl Citrate 30 ml @ 0 mls/hr CONT PRN IV SEE PROTOCOL Last administered on 03/09/18at 23:16; Start 03/08/18 at 22:15 Fentanyl Citrate (Fentanyl 2ml Vial) 25 mcg PRN Q1HR PRN IV SEE COMMENTS; Start 03/08/18 at 22:15 Fentanyl Citrate (Fentanyl 2ml Vial) 50 mcg PRN Q1HR PRN IV SEE COMMENTS Last administered on 03/08/18at 22:41; Start 03/08/18 at 22:15 Chlorhexidine Gluconate (Peridex) 15 ml BID MM Last administered on 03/10/18at 10 :32; Start 03/09/18 at 09:00 Midazolam HCl 100 ml @ 0 mls/hr CONT PRN IV SEE PROTOCOL Last administered on 03/09/18at 21:43; Start 03/08/18 at 22:15 Factor IX (Pha) (Novoseven Rt) 1 mg 1X ONCE IV Last administered on at 01:09; Start 03/09/18 at 01:00; Stop 03/09/18 at 01:01; Status DC Lorazepam (Ativan) 2 mg STK-MED ONCE .ROUTE ; Start 03/09/18 at 01:15; Stop at 01:16; Status DC Norepinephrine Bitartrate 250 ml @ 1.875 mls/ hr CONT PRN IV SEE I/O RECORD Last administered on 03/09/18at 17:41; Start 03/09/18 at 01:45 Cefazolin Sodium/ Dextrose 50 ml @ 100 mls/hr 1X PREOP PRN IV PRIOR TO PROCEDURE Last administered on 03/09/18at 02:00; Start 03/09/18 at 02:00; Stop 03/10/18 at 01:59; Status DC Rocuronium Dorris (Zemuron) 100 mg STK-MED ONCE .ROUTE ; Start 03/09/18 at 01: 57; Stop 03/09/18 at 01:59; Status DC Fentanyl Citrate (Fentanyl 5ml Vial) 250 mcg STK-MED ONCE .ROUTE ; Start at 02:13; Stop 03/09/18 at 02:14; Status DC Cellulose (Surgicel Hemostat 2x3) 1 each STK-MED ONCE .ROUTE ; Start 03/09/18 at 02:23; Stop 03/09/18 at 02:25; Status DC Cellulose (Surgicel Hemostat 2x14) 1 each STK-MED ONCE .ROUTE ; Start 03/09/18 at 02:23; Stop 03/09/18 at 02:25; Status DC Cellulose (Surgicel Hemostat 4x8) 1 each STK-MED ONCE .ROUTE Last administered on 03/09/18at 02:04; Start 03/09/18 at 02:23; Stop 03/09/18 at 02:25; Status DC Sodium Chloride (Normal Saline Flush) 3 ml QSHIFT PRN IV AFTER MEDS AND BLOOD DRAWS; Start 03/09/18 at 03:30 Cellulose (Surgicel Hemostat 4x8) 1 each STK-MED ONCE TP Last administered on 03/09/18at 02:04; Start 03/09/18 at 02:04; Stop 03/09/18 at 03:20; Status DC Cellulose (Surgicel Hemostat 4x8) 1 each STK-MED ONCE TP Last administered on 03/09/18at 02:04; Start 03/09/18 at 02:04; Stop 03/09/18 at 03:20; Status DC Sodium Bicarbonate (Sodium Bicarb Adult 8.4% Syr) 150 meq STK-MED ONCE .ROUTE ; Start 03/08/18 at 10:00; Stop 03/09/18 at 10:30; Status DC Dopamine HCl/ Dextrose (DOPamine 400MG/ 250ML PREMIX) 400 mg STK-MED ONCE IV ; Start 03/08/18 at 10:00; Stop 03/09/18 at 10:30; Status DC Potassium Chloride/Dextrose 1,000 ml @ 100 mls/hr Q10H IV Last administered on 03/09/18at 11:22; Start 03/09/18 at 11:00; Stop 03/09/18 at 20:59; Status DC Magnesium Sulfate/ Dextrose 100 ml @ 25 mls/hr 1X ONCE IV Last administered on 03/09/18at 13:45; Start 03/09/18 at 12:45; Stop 03/09/18 at 16:44; Status DC Potassium Chloride/Water 50 ml @ 50 mls/hr 1X ONCE IV Last administered on at 13:43; Start 03/09/18 at 12:45; Stop 03/09/18 at 13:44; Status DC Magnesium Sulfate 50 ml @ 25 mls/hr PRN DAILY PRN IV for Mag < 1.7 on am labs Last administered on 03/10/18at 06:17; Start 03/09/18 at 13:45 Sodium Chloride 500 ml @ 500 mls/hr QIDPRN PRN IV U/O <30 cc/hr Last administered on 03/10/18at 09:00; Start 03/09/18 at 19:45 Info (Tpn Per Pharmacy) 1 each PRN DAILY PRN MC SEE COMMENTS; Start 03/10/18 at 09:00; Stop 03/10/18 at 12:42; Status DC Potassium Phosphate 13.6 mmol/Dextrose 104.5333 ml @ 52.267 m... Q2H IV Last administered on 03/10/18at 10:34; Start 03/10/18 at 10:00; Stop 03/10/18 at 11:59; Status DC Amino Acids/ Glycerin/ Electrolytes 1,000 ml @ 100 mls/hr Q10H IV ; Start at 13:00 Active Scripts Active Reported Prilosec Otc (Omeprazole Magnesium) 20 Mg Tablet.dr 1 Tab PO DAILY Simvastatin 20 Mg Tablet 1 Tab PO QHS Vitals/I & O Vital Sign - Last 24 Hours 03/09/18 03/09/18 03/09/18 03/09/18 14:00 14:00 15:00 15:04 Temp 99.5 99.5 Pulse 74 74 78 Resp 16 16 B/P (MAP) 100/47 (64) 90/46 (61) Pulse Ox 100 100 100 O2 Delivery Ventilator Ventilator Ventilator 03/09/18 03/09/18 03/09/18 03/09/18 16:00 16:00 16:00 16:56 Temp 99.3 99.3 Pulse 78 78 Resp 16 B/P (MAP) 100/50 (67) 100/50 (67) Pulse Ox 100 100 O2 Delivery Mechanical Ventilator Ventilator Ventilator 03/09/18 03/09/18 03/09/18 03/09/18 17:00 18:00 19:00 20:00 Temp 99.3 99.3 99.3 99.3 Pulse 79 78 78 79 Resp 16 16 15 B/P (MAP) 93/50 (64) 19/53 (42) 108/50 (69) 104/47 (66) Pulse Ox 100 100 100 O2 Delivery Ventilator Ventilator Ventilator 03/09/18 03/09/18 03/09/18 03/09/18 20:00 20:00 20:17 21:00 Temp 99.3 99.3 Pulse 79 79 Resp 16 14 B/P (MAP) 104/47 (66) 92/63 (73) Pulse Ox 100 100 100 O2 Delivery Ventilator Mechanical Ventilator Ventilator Ventilator 03/09/18 03/09/18 03/09/18 03/09/18 21:18 22:00 23:00 23:16 Pulse 80 90 Resp 14 18 16 B/P (MAP) 99/65 (76) 128/57 (80) Pulse Ox 100 100 100 100 O2 Delivery Ventilator Ventilator Ventilator Ventilator 03/09/18 03/09/18 03/09/18 03/10/18 23:23 23:40 23:40 00:00 Temp 99.3 99.3 Pulse 90 92 Resp 16 B/P (MAP) 123/54 (77) 124/55 (78) Pulse Ox 100 100 O2 Delivery Ventilator Mechanical Ventilator Ventilator 03/10/18 03/10/18 03/10/18 03/10/18 01:00 01:25 02:00 03:00 Pulse 93 92 92 Resp 14 17 14 B/P (MAP) 127/57 (80) 128/64 (85) 125/54 (77) Pulse Ox 100 100 100 100 O2 Delivery Ventilator Ventilator Ventilator Ventilator 03/10/18 03/10/18 03/10/18 03/10/18 03:50 04:00 04:00 04:00 Temp 99.0 99.0 Pulse 90 90 Resp 14 B/P (MAP) 127/57 (80) 127/57 (80) Pulse Ox 100 100 O2 Delivery Ventilator Mechanical Ventilator Ventilator 03/10/18 03/10/18 03/10/18 03/10/18 05:00 05:44 06:00 07:00 Temp 99.0 99.0 Pulse 89 87 84 Resp 14 16 14 B/P (MAP) 129/55 (79) 128/54 (78) 128/54 (78) Pulse Ox 100 100 100 100 O2 Delivery Ventilator Ventilator Ventilator Ventilator 03/10/18 03/10/18 03/10/18 03/10/18 07:30 08:00 08:00 08:00 Pulse 84 84 Resp 15 B/P (MAP) 124/54 (77) Pulse Ox 100 99 O2 Delivery Ventilator Mechanical Ventilator Ventilator 03/10/18 03/10/18 03/10/18 03/10/18 09:00 10:00 11:00 11:33 Pulse 86 82 90 Resp 15 15 14 B/P (MAP) 126/54 (78) 108/52 (70) 124/62 (82) Pulse Ox 100 100 99 100 O2 Delivery Ventilator Ventilator Ventilator Ventilator Intake and Output 03/09/18 03/09/18 03/10/18 15:01 23:01 07:01 Intake Total 135 ml 1927 ml 1258 ml Output Total 980 ml 1197 ml 1290 ml Balance -845 ml 730 ml -32 ml Problem List Problems Medical Problems: (1) Hypotension Status: Acute Assessment S/p splenectomy- with gastric variceal bleed, clinically stable, Hg noted, CPM CAMILA MO MD Mar 10, 2018 13:22
[2018-03-10] MEDS: AMINO AC 3%/ELECTROLYTE/GLYCER 1,000 ML IV SCH ×2 (16:39→22:47)
[2018-03-10] MEDS ORDERED: IV RINGERS,LACTATED 500ML 500 ML IV ONE (19:45)
[2018-03-11] VITALS (24 sets, daily range): BP systolic 92–132; BP diastolic 43–66
[2018-03-11 05:40] LABS: BASO % 0 % (0-3); EOS # 0.1 x10^3/uL (0.0-0.7); EOS % 1 % (0-3); HEMATOCRIT 31.8 % (36.0-47.0); LYMPH # 2.1 x10^3/uL (1.0-4.8); LYMPH % 16 % (24-48); MEAN CORPUSCULAR HEMOGLOBIN 31 pg (25-35); MEAN CORPUSCULAR HGB CONC 35 g/dL (31-37); MEAN CORPUSCULAR VOLUME 89 fL (79-100); MONO # 1.4 x10^3/uL (0.0-1.1); MONO % 11 % (0-9); NEUT # 9.6 x10^3uL (1.8-7.7); NEUT % 72 % (31-73); PLATELET COUNT 74 x10^3/uL (140-400); RED BLOOD COUNT 3.58 x10^6/uL (3.50-5.40); RED CELL DISTRIBUTION WIDTH 15.6 % (11.5-14.5); WHITE BLOOD COUNT 13.3 x10^3/uL (4.0-11.0)
[2018-03-11 05:56] LABS: ALBUMIN 1.6 g/dL (3.4-5.0); CALCIUM 7.2 mg/dL (8.5-10.1); CREATININE 0.5 mg/dL (0.6-1.0); POTASSIUM 3.7 mmol/L (3.5-5.1)
[2018-03-11] MEDS ORDERED: IV RINGERS,LACTATED 1000ML 500 ML IV PRN (07:00)
[2018-03-11] MEDS ORDERED: DEXTROSE 50% 25 GM / 50ML DISP.SYRIN. IV PRN (07:00)
--- NOTE | 2018-03-11 08:32 | PDOC ---
SUBJECTIVE ROS Follow-up for oligo anuria, hyper natremia Remains intubated and sedated on the vent currently. Urine output has picked up after IV fluid boluses as ordered OBJECTIVE Vital Signs Vital Signs Date Time Temp Pulse Resp B/P (MAP) Pulse Ox O2 Delivery O2 Flow Rate FiO2 03/11/18 06:00 76 15 106/52 (70) 100 Ventilator 03/11/18 04:00 99.6 99.6 I & 0 Intake and Output 03/11/18 07:01 Intake Total 886 ml Output Total 3180 ml Balance -2294 ml Intake Oral 0 ml IV Total 886 ml Output Urine Total 725 ml Drainage Total 2455 ml PHYSICAL EXAM Physical Exam General Appearance: Sedated and intubated on the vent currently. In no Distress Eyes: Sclera appears anicteric Conjunctiva Normal EN: No EN Drainage Mucous Memb. moist, orally intubated Neck: no JVD min JVP Supple no Thyromegaly CVS: S1 S2 soft Murmur No Gallop No Rub no Edema Resp: no Rales no Rhonchi no Acc. Muscle use GI: BS -ve NO Bruit Non Tender Non Distended : no CVA tenderness; no Suprapubic Tenderness Assessment & Plan Oliguria: Suspect intravascular volume depletion: We will administer IV fluids and colloids as ordered. We'll need to replace TERE drainage aggressively as ordered. Intra Vascular volume depletion with marginal blood pressures while sedated and intubated: IV fluids as required and ordered Hyper natremia: Hypotonic IV fluids in the form off PPN. This appears to be improving currently Nutrition: PPN for now. We'll start TPN once sodium is better corrected Hypomagnesemia: Replaced as ordered Lowish phosphorus: Replace as ordered with K-Phos Severe hypoalbuminemia: Precise etiology unclear, most likely related to underlying liver issues COMMENT/RELEVANT DATA Meds Current Medications Medications (Trade) Dose Ordered Sig/Aliza Start Time Stop Time Status Last Admin Dose Admin Albumin Human 500 ml @ As Directed STK-MED ONCE 03/08/18 17:41 03/08/18 17:43 DC Amino Acids/ Glycerin/ Electrolytes 1,000 ml @ 100 mls/hr Q10H 03/10/18 13:00 03/10/18 22:47 100 MLS/HR Calcium Chloride (Calcium Chloride) 1,000 mg STK-MED ONCE 03/08/18 17:57 03/08/18 17:59 DC Cefazolin Sodium 100 ml @ As Directed STK-MED ONCE 03/08/18 15:57 03/08/18 15:59 DC Cefazolin Sodium/ Dextrose 50 ml @ 100 mls/hr 1X PREOP PRN 03/09/18 02:00 03/10/18 01:59 DC 03/09/18 02:00 100 MLS/HR Cellulose (Surgicel Hemostat 2x14) 1 each STK-MED ONCE 03/09/18 02:23 03/09/18 02:25 DC Cellulose (Surgicel Hemostat 2x3) 1 each STK-MED ONCE 03/09/18 02:23 03/09/18 02:25 DC Cellulose (Surgicel Hemostat 4x8) 1 each STK-MED ONCE 03/09/18 02:04 03/09/18 03:20 DC 03/09/18 02:04 1 EACH Chlorhexidine Gluconate (Peridex) 15 ml BID 03/09/18 09:00 03/10/18 21:00 15 ML Dexamethasone Sodium Phosphate (Decadron) 20 mg STK-MED ONCE 03/08/18 14:56 03/08/18 14:58 DC Dextrose (Dextrose 50%-Water Syringe) 12.5 gm PRN Q15MIN PRN 03/11/18 07:00 Dopamine HCl/ Dextrose (DOPamine 400MG/ 250ML PREMIX) 400 mg STK-MED ONCE 03/08/18 10:00 03/09/18 10:30 DC Epinephrine HCl (EPINEPHrine SYRINGE) 1 mg STK-MED ONCE 03/08/18 18:40 03/08/18 18:41 DC Factor IX (Pha) (Novoseven Rt) 1 mg 1X ONCE 03/09/18 01:00 03/09/18 01:01 DC 03/09/18 01:09 1 MG Famotidine (Pepcid) 20 mg BID 03/08/18 21:00 03/09/18 08:11 DC Fentanyl Citrate (Fentanyl 2ml Vial) 50 mcg PRN Q1HR PRN 03/08/18 22:15 03/08/18 22:41 50 MCG Fentanyl Citrate (Fentanyl 5ml Vial) 250 mcg STK-MED ONCE 03/09/18 02:13 03/09/18 02:14 DC Heparin Sodium/ Sodium Chloride (HEPARIN for ARTERIAL LINE FLUSH) 1,000 unit 1X ONCE 03/08/18 12:30 03/08/18 12:31 DC 03/08/18 12:30 1,000 UNIT Info (CONTRAST GIVEN -- Rx MONITORING) 1 each PRN DAILY PRN 03/07/18 19:15 03/09/18 19:14 DC Info (Tpn Per Pharmacy) 1 each PRN DAILY PRN 03/10/18 09:00 03/10/18 12:42 DC Iohexol (Omnipaque 300 Mg/ml) 100 ml 1X ONCE 03/08/18 12:15 03/08/18 12:21 DC 03/08/18 12:15 95 ML Ketamine HCl (Ketamine) 50 mg STK-MED ONCE 03/08/18 14:55 03/08/18 14:57 DC Lidocaine HCl (Lidocaine Pf 2% Vial) 5 ml STK-MED ONCE 03/08/18 14:57 03/08/18 14:58 DC Lidocaine/Sodium Bicarbonate (Buffered Lidocaine 1%) 3 ml 1X ONCE 03/08/18 12:15 03/08/18 12:21 DC 03/08/18 12:15 5 ML Lorazepam (Ativan) 2 mg STK-MED ONCE 03/09/18 01:15 03/09/18 01:16 DC Magnesium Sulfate 50 ml @ 25 mls/hr PRN DAILY PRN 03/09/18 13:45 03/10/18 06:17 25 MLS/HR Magnesium Sulfate/ Dextrose 100 ml @ 25 mls/hr 1X ONCE 03/09/18 12:45 03/09/18 16:44 DC 03/09/18 13:45 25 MLS/HR Midazolam HCl 100 ml @ 0 mls/hr CONT PRN 03/08/18 22:15 03/10/18 18:45 DC 03/09/18 21:43 5 MLS/HR Midazolam HCl (Versed) 2 mg 1X ONCE 03/08/18 12:15 03/08/18 12:21 DC Morphine Sulfate (Morphine Sulfate) 1 mg PRN Q1HR PRN 03/08/18 20:45 03/10/18 18:45 DC 03/08/18 21:12 1 MG Norepinephrine Bitartrate 250 ml @ 1.875 mls/ hr CONT PRN 03/09/18 01:45 03/09/18 17:41 3.75 MLS/HR Octreotide Acetate 500 mcg/ Sodium Chloride 101 ml @ 5.05 mls/hr CONT PRN 03/07/18 19:30 03/09/18 11:47 DC 03/09/18 10:38 5.05 MLS/HR Ondansetron HCl (Zofran) 4 mg PRN Q6HRS PRN 03/08/18 20:45 Pantoprazole Sodium (PROTONIX VIAL for IV PUSH) 80 mg 1X ONCE 03/07/18 18:30 03/07/18 18:32 DC 03/07/18 19:00 80 MG Pantoprazole Sodium 80 mg/ Sodium Chloride 100 ml @ 10 mls/hr Q10H 03/07/18 23:00 03/10/18 22:46 10 MLS/HR Phenylephrine HCl (Wander-Synephrine Inj) 10 mg STK-MED ONCE 03/08/18 13:25 03/08/18 13:26 DC Potassium Chloride/Dextrose 1,000 ml @ 100 mls/hr Q10H 03/09/18 11:00 03/09/18 20:59 DC 03/09/18 11:22 100 MLS/HR Potassium Chloride/Water 50 ml @ 50 mls/hr 1X ONCE 03/09/18 12:45 03/09/18 13:44 DC 03/09/18 13:43 50 MLS/HR Potassium Phosphate 13.6 mmol/Dextrose 104.5333 ml @ 52.267 m... Q2H 03/10/18 10:00 03/10/18 11:59 DC 03/10/18 10:34 52.267 MLS/HR Prochlorperazine Edisylate (Compazine) 10 mg STK-MED ONCE 03/08/18 18:42 03/08/18 18:44 DC Propofol 100 ml @ As Directed STK-MED ONCE 03/08/18 19:56 03/08/18 19:58 DC Ringer's Solution 500 ml @ 500 mls/hr Q1H PRN 03/11/18 07:00 Rocuronium [place] (Zemuron) 100 mg STK-MED ONCE 03/09/18 01:57 03/09/18 01:59 DC Sevoflurane (Ultane) 90 ml STK-MED ONCE 03/08/18 18:48 03/08/18 18:49 DC Sodium Bicarbonate (Sodium Bicarb Adult 8.4% Syr) 150 meq STK-MED ONCE 03/08/18 10:00 03/09/18 10:30 DC Sodium Chloride 500 ml @ 500 mls/hr QIDPRN PRN 03/09/18 19:45 03/10/18 09:00 500 MLS/HR Sodium Chloride (Normal Saline Flush) 3 ml QSHIFT PRN 03/09/18 03:30 Succinylcholine Chloride (Anectine) 200 mg STK-MED ONCE 03/08/18 14:55 03/08/18 14:56 DC Vasopressin 40 unit/Dextrose 102 ml @ 6 mls/hr 1X ONCE 03/08/18 18:00 03/09/18 10:59 DC 03/08/18 20:41 6 MLS/HR Lab Laboratory Tests Test 03/10/18 09:35 03/10/18 17:20 03/11/18 05:25 O2 Saturation 98 % (92-99) Arterial Blood pH 7.46 (7.35-7.45) Arterial Blood pCO2 at Patient Temp 36 mmHg (35-46) Arterial Blood pO2 at Patient Temp 106 mmHg (65-108) Arterial Blood HCO3 25 mmol/L (21-28) Arterial Blood Base Excess 1 mmol/L (-3-3) FiO2 35 Hemoglobin 11.9 g/dL (12.0-15.5) 11.0 g/dL (12.0-15.5) Magnesium Level 2.2 mg/dL (1.8-2.4) 2.0 mg/dL (1.8-2.4) White Blood Count 13.3 x10^3/uL (4.0-11.0) Red Blood Count 3.58 x10^6/uL (3.50-5.40) Hematocrit 31.8 % (36.0-47.0) Mean Corpuscular Volume 89 fL (79-100) Mean Corpuscular Hemoglobin 31 pg (25-35) Mean Corpuscular Hemoglobin Concent 35 g/dL (31-37) Red Cell Distribution Width 15.6 % (11.5-14.5) Platelet Count 74 x10^3/uL (140-400) Neutrophils (%) (Auto) 72 % (31-73) Lymphocytes (%) (Auto) 16 % (24-48) Monocytes (%) (Auto) 11 % (0-9) Eosinophils (%) (Auto) 1 % (0-3) Basophils (%) (Auto) 0 % (0-3) Neutrophils # (Auto) 9.6 x10^3uL (1.8-7.7) Lymphocytes # (Auto) 2.1 x10^3/uL (1.0-4.8) Monocytes # (Auto) 1.4 x10^3/uL (0.0-1.1) Eosinophils # (Auto) 0.1 x10^3/uL (0.0-0.7) Basophils # (Auto) 0.0 x10^3/uL (0.0-0.2) Sodium Level 146 mmol/L (136-145) Potassium Level 3.7 mmol/L (3.5-5.1) Chloride Level 114 mmol/L (98-107) Carbon Dioxide Level 26 mmol/L (21-32) Anion Gap 6 (6-14) Blood Urea Nitrogen 25 mg/dL (7-20) Creatinine 0.5 mg/dL (0.6-1.0) Estimated GFR (Cockcroft-Gault) 122.0 Glucose Level 120 mg/dL (70-99) Calcium Level 7.2 mg/dL (8.5-10.1) Ionized Calcium 1.05 mmol/L (1.13-1.32) Phosphorus Level 2.0 mg/dL (2.6-4.7) Albumin 1.6 g/dL (3.4-5.0) Results All relevant outside records, renal labs, imaging studies, telemetry/EKG's were reviewed. BRAXTON HUFFMAN MD Mar 11, 2018 08:32
[2018-03-11] MEDS: CHLORHEXIDINE 0.12% 15 ML MOUTHWASH. MM SCH ×2 (09:00→21:42)
--- NOTE | 2018-03-11 09:02 | PDOC ---
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 Hepatocellular carcinoma: She can follow-up with her primary oncologist upon discharge Variceal bleeding: Appears to be stopped post operatively. GI is involved as well as surgery, on PPI. Anemia: Would transfuse for hemoglobin less than 7 Thrombocytopenia: Would transfuse for platelets less than 50 or active bleeding Coagulopathy: Would give vitamin K if INR greater than 1.5, cryoprecipitate if fibrinogen less than 100, no need for further products at this time, CBCs are being followed Thank you kindly, and please don't hesitate to call with any further questions. OBJECTIVE Vital Signs Vital Signs Date Time Temp Pulse Resp B/P (MAP) Pulse Ox O2 Delivery O2 Flow Rate FiO2 03/11/18 06:00 76 15 106/52 (70) 100 Ventilator 03/11/18 05:00 76 15 104/56 (72) 100 Ventilator 03/11/18 04:15 100 Ventilator 03/11/18 04:00 Mechanical Ventilator 03/11/18 04:00 99.6 80 15 106/55 (72) 100 Ventilator 99.6 03/11/18 04:00 86 03/11/18 03:00 80 15 104/52 (69) 100 Ventilator 03/11/18 02:30 100 Ventilator 03/11/18 02:00 82 11 114/56 (75) 100 Ventilator 03/11/18 01:00 82 11 132/66 (88) 100 Ventilator 03/11/18 00:00 99.5 82 13 104/52 (69) 100 Ventilator 99.5 03/11/18 00:00 87 03/10/18 23:59 Mechanical Ventilator 03/10/18 23:15 100 Ventilator 03/10/18 23:00 86 14 112/53 (72) 100 Ventilator 03/10/18 22:00 82 14 102/50 (67) 100 Ventilator 03/10/18 21:50 100 Ventilator 03/10/18 21:00 80 14 102/52 (69) 100 Ventilator 03/10/18 20:41 100 Ventilator 03/10/18 20:00 78 03/10/18 20:00 80 11 104/50 (68) 100 Ventilator 03/10/18 20:00 Mechanical Ventilator 03/10/18 19:00 100.1 78 10 112/54 (73) 100 Ventilator 100.1 03/10/18 18:10 85 13 100/57 (71) 100 Ventilator 03/10/18 17:35 100 Ventilator 03/10/18 17:00 89 16 104/54 (71) 100 Ventilator 03/10/18 16:00 Mechanical Ventilator 03/10/18 16:00 82 03/10/18 16:00 99.7 82 14 114/56 (75) 100 Ventilator 99.7 03/10/18 15:25 100 Ventilator 03/10/18 15:00 96 14 108/55 (72) 100 Ventilator 03/10/18 14:00 90 14 108/56 (73) 100 Ventilator 03/10/18 13:35 100 Ventilator 03/10/18 13:00 86 16 112/58 (76) 100 Ventilator 03/10/18 12:00 Mechanical Ventilator 03/10/18 12:00 99.3 90 16 110/56 (74) 100 Ventilator 99.3 03/10/18 12:00 90 03/10/18 11:33 100 Ventilator 03/10/18 11:00 90 14 124/62 (82) 99 Ventilator 03/10/18 10:00 82 15 108/52 (70) 100 Ventilator 03/10/18 09:25 100 Ventilator 03/10/18 09:00 86 15 126/54 (78) 100 Ventilator I & O Intake and Output 03/11/18 07:01 Intake Total 886 ml Output Total 3180 ml Balance -2294 ml Intake Oral 0 ml IV Total 886 ml Output Urine Total 725 ml Drainage Total 2455 ml COMMENT Lab Laboratory Tests Test 03/10/18 09:35 03/10/18 17:20 03/11/18 05:25 O2 Saturation 98 % (92-99) Arterial Blood pH 7.46 (7.35-7.45) Arterial Blood pCO2 at Patient Temp 36 mmHg (35-46) Arterial Blood pO2 at Patient Temp 106 mmHg (65-108) Arterial Blood HCO3 25 mmol/L (21-28) Arterial Blood Base Excess 1 mmol/L (-3-3) FiO2 35 Hemoglobin 11.9 g/dL (12.0-15.5) 11.0 g/dL (12.0-15.5) Magnesium Level 2.2 mg/dL (1.8-2.4) 2.0 mg/dL (1.8-2.4) White Blood Count 13.3 x10^3/uL (4.0-11.0) Red Blood Count 3.58 x10^6/uL (3.50-5.40) Hematocrit 31.8 % (36.0-47.0) Mean Corpuscular Volume 89 fL (79-100) Mean Corpuscular Hemoglobin 31 pg (25-35) Mean Corpuscular Hemoglobin Concent 35 g/dL (31-37) Red Cell Distribution Width 15.6 % (11.5-14.5) Platelet Count 74 x10^3/uL (140-400) Neutrophils (%) (Auto) 72 % (31-73) Lymphocytes (%) (Auto) 16 % (24-48) Monocytes (%) (Auto) 11 % (0-9) Eosinophils (%) (Auto) 1 % (0-3) Basophils (%) (Auto) 0 % (0-3) Neutrophils # (Auto) 9.6 x10^3uL (1.8-7.7) Lymphocytes # (Auto) 2.1 x10^3/uL (1.0-4.8) Monocytes # (Auto) 1.4 x10^3/uL (0.0-1.1) Eosinophils # (Auto) 0.1 x10^3/uL (0.0-0.7) Basophils # (Auto) 0.0 x10^3/uL (0.0-0.2) Sodium Level 146 mmol/L (136-145) Potassium Level 3.7 mmol/L (3.5-5.1) Chloride Level 114 mmol/L (98-107) Carbon Dioxide Level 26 mmol/L (21-32) Anion Gap 6 (6-14) Blood Urea Nitrogen 25 mg/dL (7-20) Creatinine 0.5 mg/dL (0.6-1.0) Estimated GFR (Cockcroft-Gault) 122.0 Glucose Level 120 mg/dL (70-99) Calcium Level 7.2 mg/dL (8.5-10.1) Ionized Calcium 1.05 mmol/L (1.13-1.32) Phosphorus Level 2.0 mg/dL (2.6-4.7) Albumin 1.6 g/dL (3.4-5.0) TAI COTTO MD Mar 11, 2018 09:02
--- NOTE | 2018-03-11 09:14 | PDOC ---
PULMONARY PROGRESS NOTES Subjective Ms. Ortiz has cirrhosis and past resection of hepatocellular carcinomo. She was admitted with GI bleed and intrabdominal bleed that required surgey. She has been on mechanical ventilation since surgery. she is sedated and on mechanical ventilation. PT OFF SEDATION SINCE YESTERDAY STILL SLEEPY NO RESPONSE EXCEPT TO STERNAL RUB Vitals Vital Signs Date Time Temp Pulse Resp B/P (MAP) Pulse Ox O2 Delivery O2 Flow Rate FiO2 03/11/18 06:00 76 15 106/52 (70) 100 Ventilator 03/11/18 04:00 99.6 99.6 Lungs: Clear Cardiovascular: S1, S2 Abdomen: Soft Skin: Warm, Dry Labs Laboratory Tests Test 03/09/18 10:40 03/09/18 14:15 03/09/18 14:30 03/09/18 16:30 White Blood Count 10.8 x10^3/uL (4.0-11.0) 12.6 x10^3/uL (4.0-11.0) Red Blood Count 4.33 x10^6/uL (3.50-5.40) 4.20 x10^6/uL (3.50-5.40) Hemoglobin 13.4 g/dL (12.0-15.5) 12.9 g/dL (12.0-15.5) Hematocrit 37.5 % (36.0-47.0) 36.5 % (36.0-47.0) Mean Corpuscular Volume 87 fL (79-100) 87 fL (79-100) Mean Corpuscular Hemoglobin 31 pg (25-35) 31 pg (25-35) Mean Corpuscular Hemoglobin Concent 36 g/dL (31-37) 36 g/dL (31-37) Red Cell Distribution Width 15.1 % (11.5-14.5) 15.0 % (11.5-14.5) Platelet Count 79 x10^3/uL (140-400) 79 x10^3/uL (140-400) Neutrophils (%) (Auto) 70 % (31-73) Lymphocytes (%) (Auto) 20 % (24-48) Monocytes (%) (Auto) 10 % (0-9) Eosinophils (%) (Auto) 0 % (0-3) Basophils (%) (Auto) 0 % (0-3) Neutrophils # (Auto) 7.5 x10^3uL (1.8-7.7) Lymphocytes # (Auto) 2.1 x10^3/uL (1.0-4.8) Monocytes # (Auto) 1.1 x10^3/uL (0.0-1.1) Eosinophils # (Auto) 0.0 x10^3/uL (0.0-0.7) Basophils # (Auto) 0.0 x10^3/uL (0.0-0.2) Prothrombin Time 13.8 SEC (11.7-14.0) Prothromb Time International Ratio 1.1 (0.8-1.1) Fibrinogen 217 mg/dL (200-440) Lactic Acid Level 2.2 mmol/L (0.4-2.0) Uric Acid 4.6 mg/dL (2.6-6.0) Creatine Kinase 629 U/L (26-192) Urine Collection Type Unknown Urine Color Yellow Urine Clarity Clear Urine pH 6.0 Urine Specific [place] 1.025 Urine Protein 15.2 mg/dL (Not Estab.) Urine Glucose (UA) Negative mg/dL (NEG) Urine Ketones (Stick) Negative mg/dL (NEG) Urine Blood Negative (NEG) Urine Nitrite Negative (NEG) Urine Bilirubin Negative (NEG) Urine Urobilinogen Dipstick 0.2 mg/dL (0.2 mg/dL) Urine Leukocyte Esterase Small (NEG) Urine RBC 1-2 /HPF (0-2) Urine WBC 11-20 /HPF (0-4) Urine Squamous Epithelial Cells Few /LPF Urine Bacteria Few /HPF (0-FEW) Urine Hyaline Casts Few /HPF Urine Mucus Marked /LPF Urine Random Sodium <60 mmol/L (Not Estab.) Urine Creatinine 96.7 mg/dL (Not Estab.) Urine Protein/Creatinine Ratio 157 mg/g creat (0-200) Test 03/09/18 18:15 03/09/18 21:50 03/10/18 05:20 03/10/18 09:35 Potassium Level 3.8 mmol/L (3.5-5.1) 3.9 mmol/L (3.5-5.1) Magnesium Level 2.2 mg/dL (1.8-2.4) 1.3 mg/dL (1.8-2.4) White Blood Count 15.9 x10^3/uL (4.0-11.0) Red Blood Count 4.46 x10^6/uL (3.50-5.40) Hemoglobin 13.6 g/dL (12.0-15.5) 12.0 g/dL (12.0-15.5) Hematocrit 38.8 % (36.0-47.0) Mean Corpuscular Volume 87 fL (79-100) Mean Corpuscular Hemoglobin 31 pg (25-35) Mean Corpuscular Hemoglobin Concent 35 g/dL (31-37) Red Cell Distribution Width 15.3 % (11.5-14.5) Platelet Count 81 x10^3/uL (140-400) Sodium Level 149 mmol/L (136-145) Chloride Level 117 mmol/L (98-107) Carbon Dioxide Level 25 mmol/L (21-32) Anion Gap 7 (6-14) Blood Urea Nitrogen 24 mg/dL (7-20) Creatinine 0.6 mg/dL (0.6-1.0) Estimated GFR (Cockcroft-Gault) 98.8 Glucose Level 119 mg/dL (70-99) Calcium Level 7.7 mg/dL (8.5-10.1) Phosphorus Level 2.5 mg/dL (2.6-4.7) Albumin 2.1 g/dL (3.4-5.0) Triglycerides Level 54 mg/dL (0-150) O2 Saturation 98 % (92-99) Arterial Blood pH 7.46 (7.35-7.45) Arterial Blood pCO2 at Patient Temp 36 mmHg (35-46) Arterial Blood pO2 at Patient Temp 106 mmHg (65-108) Arterial Blood HCO3 25 mmol/L (21-28) Arterial Blood Base Excess 1 mmol/L (-3-3) FiO2 35 Test 03/10/18 17:20 03/11/18 05:25 Hemoglobin 11.9 g/dL (12.0-15.5) 11.0 g/dL (12.0-15.5) Magnesium Level 2.2 mg/dL (1.8-2.4) 2.0 mg/dL (1.8-2.4) White Blood Count 13.3 x10^3/uL (4.0-11.0) Red Blood Count 3.58 x10^6/uL (3.50-5.40) Hematocrit 31.8 % (36.0-47.0) Mean Corpuscular Volume 89 fL (79-100) Mean Corpuscular Hemoglobin 31 pg (25-35) Mean Corpuscular Hemoglobin Concent 35 g/dL (31-37) Red Cell Distribution Width 15.6 % (11.5-14.5) Platelet Count 74 x10^3/uL (140-400) Neutrophils (%) (Auto) 72 % (31-73) Lymphocytes (%) (Auto) 16 % (24-48) Monocytes (%) (Auto) 11 % (0-9) Eosinophils (%) (Auto) 1 % (0-3) Basophils (%) (Auto) 0 % (0-3) Neutrophils # (Auto) 9.6 x10^3uL (1.8-7.7) Lymphocytes # (Auto) 2.1 x10^3/uL (1.0-4.8) Monocytes # (Auto) 1.4 x10^3/uL (0.0-1.1) Eosinophils # (Auto) 0.1 x10^3/uL (0.0-0.7) Basophils # (Auto) 0.0 x10^3/uL (0.0-0.2) Sodium Level 146 mmol/L (136-145) Potassium Level 3.7 mmol/L (3.5-5.1) Chloride Level 114 mmol/L (98-107) Carbon Dioxide Level 26 mmol/L (21-32) Anion Gap 6 (6-14) Blood Urea Nitrogen 25 mg/dL (7-20) Creatinine 0.5 mg/dL (0.6-1.0) Estimated GFR (Cockcroft-Gault) 122.0 Glucose Level 120 mg/dL (70-99) Calcium Level 7.2 mg/dL (8.5-10.1) Ionized Calcium 1.05 mmol/L (1.13-1.32) Phosphorus Level 2.0 mg/dL (2.6-4.7) Albumin 1.6 g/dL (3.4-5.0) Laboratory Tests Test 03/10/18 09:35 03/10/18 17:03/11/18 05:25 O2 Saturation 98 % (92-99) Arterial Blood pH 7.46 (7.35-7.45) Arterial Blood pCO2 at Patient Temp 36 mmHg (35-46) Arterial Blood pO2 at Patient Temp 106 mmHg (65-108) Arterial Blood HCO3 25 mmol/L (21-28) Arterial Blood Base Excess 1 mmol/L (-3-3) FiO2 35 Hemoglobin 11.9 g/dL (12.0-15.5) 11.0 g/dL (12.0-15.5) Magnesium Level 2.2 mg/dL (1.8-2.4) 2.0 mg/dL (1.8-2.4) White Blood Count 13.3 x10^3/uL (4.0-11.0) Red Blood Count 3.58 x10^6/uL (3.50-5.40) Hematocrit 31.8 % (36.0-47.0) Mean Corpuscular Volume 89 fL (79-100) Mean Corpuscular Hemoglobin 31 pg (25-35) Mean Corpuscular Hemoglobin Concent 35 g/dL (31-37) Red Cell Distribution Width 15.6 % (11.5-14.5) Platelet Count 74 x10^3/uL (140-400) Neutrophils (%) (Auto) 72 % (31-73) Lymphocytes (%) (Auto) 16 % (24-48) Monocytes (%) (Auto) 11 % (0-9) Eosinophils (%) (Auto) 1 % (0-3) Basophils (%) (Auto) 0 % (0-3) Neutrophils # (Auto) 9.6 x10^3uL (1.8-7.7) Lymphocytes # (Auto) 2.1 x10^3/uL (1.0-4.8) Monocytes # (Auto) 1.4 x10^3/uL (0.0-1.1) Eosinophils # (Auto) 0.1 x10^3/uL (0.0-0.7) Basophils # (Auto) 0.0 x10^3/uL (0.0-0.2) Sodium Level 146 mmol/L (136-145) Potassium Level 3.7 mmol/L (3.5-5.1) Chloride Level 114 mmol/L (98-107) Carbon Dioxide Level 26 mmol/L (21-32) Anion Gap 6 (6-14) Blood Urea Nitrogen 25 mg/dL (7-20) Creatinine 0.5 mg/dL (0.6-1.0) Estimated GFR (Cockcroft-Gault) 122.0 Glucose Level 120 mg/dL (70-99) Calcium Level 7.2 mg/dL (8.5-10.1) Ionized Calcium 1.05 mmol/L (1.13-1.32) Phosphorus Level 2.0 mg/dL (2.6-4.7) Albumin 1.6 g/dL (3.4-5.0) Medications Active Scripts Medications Dose Route/Sig Max Daily Dose Days Date Category Prilosec Otc (Omeprazole Magnesium) 20 Mg Tablet.dr 1 Tab PO DAILY 03/07/18 Reported Simvastatin 20 Mg Tablet 1 Tab PO QHS 03/07/18 Reported Impression . 1. respiratory failure Expected post-op multifactorial 2. GI bleed stabilized 3. cirrhosis 4. hx resected hepatocellular carcinoma 5. ENCEPHALOPATHY SUSPECT METABOLIC Plan . PT NOT READY TO UNDERGO TRIAL, D/W RN SPOKE WITH AT BEDSIDE WILL CONTINUE SUPPORT CCT 30 MIN CORINA ROBERSON MD Mar 11, 2018 09:14
[2018-03-11 09:24] LABS: BASE EXCESS ABG 1 mmol/L (-3-3); HCO3 ABG 23 mmol/L (21-28); PCO2 ABG 30 mmHg (35-46); PO2 ABG 109 mmHg (65-108); SAT O2 ABG 98 % (92-99)
[2018-03-11 09:30] LABS: FIO2 ABG 35
--- NOTE | 2018-03-11 10:53 | PDOC ---
Subjective: Subjective: Family recalls no h/o Hepatitis - says she was checked in the past. Objective: Objective: Reviewed w/ RN - no bleeding - about 200cc NG output per shift, TERE now serosang and slowing, ~120cc out from G tube per shift. Vital Signs: Vital Signs Date Time Temp Pulse Resp B/P (MAP) Pulse Ox O2 Delivery O2 Flow Rate FiO2 03/11/18 09:08 100 Ventilator 03/11/18 09:00 76 15 92/56 (68) 03/11/18 08:00 99.3 99.3 Labs: Laboratory Tests Test 03/10/18 17:20 03/11/18 05:25 03/11/18 09:20 Hemoglobin 11.9 g/dL 11.0 g/dL Magnesium Level 2.2 mg/dL 2.0 mg/dL White Blood Count 13.3 x10^3/uL Red Blood Count 3.58 x10^6/uL Hematocrit 31.8 % Mean Corpuscular Volume 89 fL Mean Corpuscular Hemoglobin 31 pg Mean Corpuscular Hemoglobin Concent 35 g/dL Red Cell Distribution Width 15.6 % Platelet Count 74 x10^3/uL Neutrophils (%) (Auto) 72 % Lymphocytes (%) (Auto) 16 % Monocytes (%) (Auto) 11 % Eosinophils (%) (Auto) 1 % Basophils (%) (Auto) 0 % Neutrophils # (Auto) 9.6 x10^3uL Lymphocytes # (Auto) 2.1 x10^3/uL Monocytes # (Auto) 1.4 x10^3/uL Eosinophils # (Auto) 0.1 x10^3/uL Basophils # (Auto) 0.0 x10^3/uL Sodium Level 146 mmol/L Potassium Level 3.7 mmol/L Chloride Level 114 mmol/L Carbon Dioxide Level 26 mmol/L Anion Gap 6 Blood Urea Nitrogen 25 mg/dL Creatinine 0.5 mg/dL Estimated GFR (Cockcroft-Gault) 122.0 Glucose Level 120 mg/dL Calcium Level 7.2 mg/dL Ionized Calcium 1.05 mmol/L Phosphorus Level 2.0 mg/dL Albumin 1.6 g/dL O2 Saturation 98 % Arterial Blood pH 7.51 Arterial Blood pCO2 at Patient Temp 30 mmHg Arterial Blood pO2 at Patient Temp 109 mmHg Arterial Blood HCO3 23 mmol/L Arterial Blood Base Excess 1 mmol/L FiO2 35 PE: GEN: intubated LUNGS: vent HEART: RRR ABD: soft, drains NEURO/PSYCH: sedated A/P: Gastric variceal bleeding s/p splenectomy, h/o HCC -- Supportive care. NASIR NGUYEN Mar 11, 2018 10:53
--- NOTE | 2018-03-11 13:51 | PDOC ---
PROGRESS NOTES Chief Complaint Chief Complaint Acute blood loss anemia - 2/2 gastric varices bleeding s/p Splenectomy, gastrotomy with control of varices, G-tube placement 03/08 and clots evacuation on 03/09 HCC - s/p surgical resection Hypotension - Hypokalemia - Hyperglycemia - Elevated INR better hypomagnesemia hypernatremia hypophosphatemia plan: fu with gi, sx talked to at bedside daily talked to CUSTOMER ASSISTANT,OFF PREssors REnal dced TPN, added ppn, and ivf bolus to replete the TERE drain. watch BP, which is lower today. urine output ok for now. protonix drip change to daily as per GI, dced octreotid as per gi gi ppx off sedation since 03/10 pm, not waking up History of Present Illness History of Present Illness coming for hematemesis, and hematochezia EGD 03/08 wo active bleeding failed IR then sx Splenectomy, gastrotomy with control of varices, G-tube placement 03/08, blood clots evacuation 03/09 intubated, sedated regular diet ordered by Nurse for her 03/09: low BP ,still has dark bloody liquid from G tube significant amount, Na 153 03/10: off pressor, TERE drain is less and mild bright red, civil preparedness coordinator than yesterday. Hb stable. Na 149. low urine output, got 500cc NS bolus last night. 03/11: BP lower to 90s, off pressor, TERE still 2L per day, color pinkish, better. Hb 11. Na 146. off sedation since 03/10 pm, not waking up Vitals Vitals Vital Signs Date Time Temp Pulse Resp B/P (MAP) Pulse Ox O2 Delivery O2 Flow Rate FiO2 03/11/18 12:38 100 Ventilator 03/11/18 09:00 76 15 92/56 (68) 03/11/18 08:00 99.3 99.3 Physical Exam Physical Exam intubated, sedated General: Other (sedated) Heart: Regular rate, Normal S1, Normal S2 Lungs: Clear Abdomen: Soft (TERE with thin serosang fluid) Extremities: No clubbing, No cyanosis Skin: No rashes, No breakdown Labs LABS Laboratory Tests Test 03/10/18 17:20 03/11/18 05:25 03/11/18 09:20 Hemoglobin 11.9 g/dL (12.0-15.5) 11.0 g/dL (12.0-15.5) Magnesium Level 2.2 mg/dL (1.8-2.4) 2.0 mg/dL (1.8-2.4) White Blood Count 13.3 x10^3/uL (4.0-11.0) Red Blood Count 3.58 x10^6/uL (3.50-5.40) Hematocrit 31.8 % (36.0-47.0) Mean Corpuscular Volume 89 fL (79-100) Mean Corpuscular Hemoglobin 31 pg (25-35) Mean Corpuscular Hemoglobin Concent 35 g/dL (31-37) Red Cell Distribution Width 15.6 % (11.5-14.5) Platelet Count 74 x10^3/uL (140-400) Neutrophils (%) (Auto) 72 % (31-73) Lymphocytes (%) (Auto) 16 % (24-48) Monocytes (%) (Auto) 11 % (0-9) Eosinophils (%) (Auto) 1 % (0-3) Basophils (%) (Auto) 0 % (0-3) Neutrophils # (Auto) 9.6 x10^3uL (1.8-7.7) Lymphocytes # (Auto) 2.1 x10^3/uL (1.0-4.8) Monocytes # (Auto) 1.4 x10^3/uL (0.0-1.1) Eosinophils # (Auto) 0.1 x10^3/uL (0.0-0.7) Basophils # (Auto) 0.0 x10^3/uL (0.0-0.2) Sodium Level 146 mmol/L (136-145) Potassium Level 3.7 mmol/L (3.5-5.1) Chloride Level 114 mmol/L (98-107) Carbon Dioxide Level 26 mmol/L (21-32) Anion Gap 6 (6-14) Blood Urea Nitrogen 25 mg/dL (7-20) Creatinine 0.5 mg/dL (0.6-1.0) Estimated GFR (Cockcroft-Gault) 122.0 Glucose Level 120 mg/dL (70-99) Calcium Level 7.2 mg/dL (8.5-10.1) Ionized Calcium 1.05 mmol/L (1.13-1.32) Phosphorus Level 2.0 mg/dL (2.6-4.7) Albumin 1.6 g/dL (3.4-5.0) O2 Saturation 98 % (92-99) Arterial Blood pH 7.51 (7.35-7.45) Arterial Blood pCO2 at Patient Temp 30 mmHg (35-46) Arterial Blood pO2 at Patient Temp 109 mmHg (65-108) Arterial Blood HCO3 23 mmol/L (21-28) Arterial Blood Base Excess 1 mmol/L (-3-3) FiO2 35 Assessment and Plan Assessmemt and Plan Problems Medical Problems: (1) Hypotension Status: Acute Comment Review of Relevant I have reviewed the following items socttie (where applicable) has been applied. Labs Laboratory Tests Test 03/09/18 14:15 03/09/18 14:30 03/09/18 16:30 03/09/18 18:15 White Blood Count 12.6 x10^3/uL (4.0-11.0) Red Blood Count 4.20 x10^6/uL (3.50-5.40) Hemoglobin 12.9 g/dL (12.0-15.5) Hematocrit 36.5 % (36.0-47.0) Mean Corpuscular Volume 87 fL (79-100) Mean Corpuscular Hemoglobin 31 pg (25-35) Mean Corpuscular Hemoglobin Concent 36 g/dL (31-37) Red Cell Distribution Width 15.0 % (11.5-14.5) Platelet Count 79 x10^3/uL (140-400) Lactic Acid Level 2.2 mmol/L (0.4-2.0) Uric Acid 4.6 mg/dL (2.6-6.0) Creatine Kinase 629 U/L (26-192) Urine Collection Type Unknown Urine Color Yellow Urine Clarity Clear Urine pH 6.0 Urine Specific [place] 1.025 Urine Protein 15.2 mg/dL (Not Estab.) Urine Glucose (UA) Negative mg/dL (NEG) Urine Ketones (Stick) Negative mg/dL (NEG) Urine Blood Negative (NEG) Urine Nitrite Negative (NEG) Urine Bilirubin Negative (NEG) Urine Urobilinogen Dipstick 0.2 mg/dL (0.2 mg/dL) Urine Leukocyte Esterase Small (NEG) Urine RBC 1-2 /HPF (0-2) Urine WBC 11-20 /HPF (0-4) Urine Squamous Epithelial Cells Few /LPF Urine Bacteria Few /HPF (0-FEW) Urine Hyaline Casts Few /HPF Urine Mucus Marked /LPF Urine Random Sodium <60 mmol/L (Not Estab.) Urine Creatinine 96.7 mg/dL (Not Estab.) Urine Protein/Creatinine Ratio 157 mg/g creat (0-200) Potassium Level 3.8 mmol/L (3.5-5.1) Magnesium Level 2.2 mg/dL (1.8-2.4) Test 03/09/18 21:50 03/10/18 05:20 03/10/18 09:35 03/10/18 17:20 White Blood Count 15.9 x10^3/uL (4.0-11.0) Red Blood Count 4.46 x10^6/uL (3.50-5.40) Hemoglobin 13.6 g/dL (12.0-15.5) 12.0 g/dL (12.0-15.5) 11.9 g/dL (12.0-15.5) Hematocrit 38.8 % (36.0-47.0) Mean Corpuscular Volume 87 fL (79-100) Mean Corpuscular Hemoglobin 31 pg (25-35) Mean Corpuscular Hemoglobin Concent 35 g/dL (31-37) Red Cell Distribution Width 15.3 % (11.5-14.5) Platelet Count 81 x10^3/uL (140-400) Sodium Level 149 mmol/L (136-145) Potassium Level 3.9 mmol/L (3.5-5.1) Chloride Level 117 mmol/L (98-107) Carbon Dioxide Level 25 mmol/L (21-32) Anion Gap 7 (6-14) Blood Urea Nitrogen 24 mg/dL (7-20) Creatinine 0.6 mg/dL (0.6-1.0) Estimated GFR (Cockcroft-Gault) 98.8 Glucose Level 119 mg/dL (70-99) Calcium Level 7.7 mg/dL (8.5-10.1) Phosphorus Level 2.5 mg/dL (2.6-4.7) Magnesium Level 1.3 mg/dL (1.8-2.4) 2.2 mg/dL (1.8-2.4) Albumin 2.1 g/dL (3.4-5.0) Triglycerides Level 54 mg/dL (0-150) O2 Saturation 98 % (92-99) Arterial Blood pH 7.46 (7.35-7.45) Arterial Blood pCO2 at Patient Temp 36 mmHg (35-46) Arterial Blood pO2 at Patient Temp 106 mmHg (65-108) Arterial Blood HCO3 25 mmol/L (21-28) Arterial Blood Base Excess 1 mmol/L (-3-3) FiO2 35 Test 03/11/18 05:25 03/11/18 09:20 White Blood Count 13.3 x10^3/uL (4.0-11.0) Red Blood Count 3.58 x10^6/uL (3.50-5.40) Hemoglobin 11.0 g/dL (12.0-15.5) Hematocrit 31.8 % (36.0-47.0) Mean Corpuscular Volume 89 fL (79-100) Mean Corpuscular Hemoglobin 31 pg (25-35) Mean Corpuscular Hemoglobin Concent 35 g/dL (31-37) Red Cell Distribution Width 15.6 % (11.5-14.5) Platelet Count 74 x10^3/uL (140-400) Neutrophils (%) (Auto) 72 % (31-73) Lymphocytes (%) (Auto) 16 % (24-48) Monocytes (%) (Auto) 11 % (0-9) Eosinophils (%) (Auto) 1 % (0-3) Basophils (%) (Auto) 0 % (0-3) Neutrophils # (Auto) 9.6 x10^3uL (1.8-7.7) Lymphocytes # (Auto) 2.1 x10^3/uL (1.0-4.8) Monocytes # (Auto) 1.4 x10^3/uL (0.0-1.1) Eosinophils # (Auto) 0.1 x10^3/uL (0.0-0.7) Basophils # (Auto) 0.0 x10^3/uL (0.0-0.2) Sodium Level 146 mmol/L (136-145) Potassium Level 3.7 mmol/L (3.5-5.1) Chloride Level 114 mmol/L (98-107) Carbon Dioxide Level 26 mmol/L (21-32) Anion Gap 6 (6-14) Blood Urea Nitrogen 25 mg/dL (7-20) Creatinine 0.5 mg/dL (0.6-1.0) Estimated GFR (Cockcroft-Gault) 122.0 Glucose Level 120 mg/dL (70-99) Calcium Level 7.2 mg/dL (8.5-10.1) Ionized Calcium 1.05 mmol/L (1.13-1.32) Phosphorus Level 2.0 mg/dL (2.6-4.7) Magnesium Level 2.0 mg/dL (1.8-2.4) Albumin 1.6 g/dL (3.4-5.0) O2 Saturation 98 % (92-99) Arterial Blood pH 7.51 (7.35-7.45) Arterial Blood pCO2 at Patient Temp 30 mmHg (35-46) Arterial Blood pO2 at Patient Temp 109 mmHg (65-108) Arterial Blood HCO3 23 mmol/L (21-28) Arterial Blood Base Excess 1 mmol/L (-3-3) FiO2 35 Laboratory Tests Test 03/10/18 17:20 03/11/18 05:25 03/11/18 09:20 Hemoglobin 11.9 g/dL (12.0-15.5) 11.0 g/dL (12.0-15.5) Magnesium Level 2.2 mg/dL (1.8-2.4) 2.0 mg/dL (1.8-2.4) White Blood Count 13.3 x10^3/uL (4.0-11.0) Red Blood Count 3.58 x10^6/uL (3.50-5.40) Hematocrit 31.8 % (36.0-47.0) Mean Corpuscular Volume 89 fL (79-100) Mean Corpuscular Hemoglobin 31 pg (25-35) Mean Corpuscular Hemoglobin Concent 35 g/dL (31-37) Red Cell Distribution Width 15.6 % (11.5-14.5) Platelet Count 74 x10^3/uL (140-400) Neutrophils (%) (Auto) 72 % (31-73) Lymphocytes (%) (Auto) 16 % (24-48) Monocytes (%) (Auto) 11 % (0-9) Eosinophils (%) (Auto) 1 % (0-3) Basophils (%) (Auto) 0 % (0-3) Neutrophils # (Auto) 9.6 x10^3uL (1.8-7.7) Lymphocytes # (Auto) 2.1 x10^3/uL (1.0-4.8) Monocytes # (Auto) 1.4 x10^3/uL (0.0-1.1) Eosinophils # (Auto) 0.1 x10^3/uL (0.0-0.7) Basophils # (Auto) 0.0 x10^3/uL (0.0-0.2) Sodium Level 146 mmol/L (136-145) Potassium Level 3.7 mmol/L (3.5-5.1) Chloride Level 114 mmol/L (98-107) Carbon Dioxide Level 26 mmol/L (21-32) Anion Gap 6 (6-14) Blood Urea Nitrogen 25 mg/dL (7-20) Creatinine 0.5 mg/dL (0.6-1.0) Estimated GFR (Cockcroft-Gault) 122.0 Glucose Level 120 mg/dL (70-99) Calcium Level 7.2 mg/dL (8.5-10.1) Ionized Calcium 1.05 mmol/L (1.13-1.32) Phosphorus Level 2.0 mg/dL (2.6-4.7) Albumin 1.6 g/dL (3.4-5.0) O2 Saturation 98 % (92-99) Arterial Blood pH 7.51 (7.35-7.45) Arterial Blood pCO2 at Patient Temp 30 mmHg (35-46) Arterial Blood pO2 at Patient Temp 109 mmHg (65-108) Arterial Blood HCO3 23 mmol/L (21-28) Arterial Blood Base Excess 1 mmol/L (-3-3) FiO2 35 Microbiology 03/09/18 Urine Culture - Final, Complete 03/09/18 Urine Culture Result 1 (JEFFRY) - Final, Complete Medications Current Medications Sodium Chloride 500 ml @ 500 mls/hr Q1H IV Last administered on 03/07/18at 18: 29; Start 03/07/18 at 18:30; Stop 03/07/18 at 18:42; Status DC Pantoprazole Sodium (PROTONIX VIAL for IV PUSH) 80 mg 1X ONCE IVP Last administered on 03/07/18at 19:00; Start 03/07/18 at 18:30; Stop 03/07/18 at 18 :32; Status DC Octreotide Acetate 500 mcg/ Sodium Chloride 101 ml @ 5.05 mls/hr CONT PRN IV SEE I/O RECORD Last administered on 03/09/18at 10:38; Start 03/07/18 at 19:30; Stop 03/09/18 at 11:47; Status DC Ondansetron HCl (Zofran) 4 mg PRN Q8HRS PRN IV NAUSEA/VOMITING; Start at 19:15; Stop 03/08/18 at 19:14; Status DC Iohexol (Omnipaque 300 Mg/ml) 75 ml 1X ONCE IV Last administered on at 20:32; Start 03/07/18 at 19:15; Stop 03/07/18 at 19:16; Status DC Info (CONTRAST GIVEN -- Rx MONITORING) 1 each PRN DAILY PRN MC SEE COMMENTS; Start 03/07/18 at 19:15; Stop 03/09/18 at 19:14; Status DC Propofol 20 ml @ As Directed STK-MED ONCE IV ; Start 03/07/18 at 22:37; Stop 03/07/18 at 22:38; Status DC Pantoprazole Sodium 80 mg/ Sodium Chloride 100 ml @ 10 mls/hr Q10H IV Last administered on 03/10/18at 22:46; Start 03/07/18 at 23:00; Stop 03/11/18 at 11:10 ; Status DC Ringer's Solution 1,000 ml @ 200 mls/hr Q5H IV Last administered on at 20:41; Start 03/07/18 at 23:15; Stop 03/09/18 at 10:58; Status DC Dopamine HCl/ Dextrose 250 ml @ 4.461 mls/ hr CONT PRN IV SEE I/O RECORD; Start 03/08/18 at 09:30 Lidocaine/Sodium Bicarbonate (Buffered Lidocaine 1%) 3 ml STK-MED ONCE .ROUTE ; Start 03/08/18 at 11:47; Stop 03/08/18 at 11:48; Status DC Iohexol (Omnipaque 300 Mg/ml) 100 ml STK-MED ONCE .ROUTE ; Start 03/08/18 at 11 :47; Stop 03/08/18 at 11:48; Status DC Heparin Sodium/ Sodium Chloride 1,000 ml @ As Directed STK-MED ONCE .ROUTE ; Start 03/08/18 at 11:47; Stop 03/08/18 at 11:48; Status DC Midazolam HCl (Versed) 2 mg STK-MED ONCE .ROUTE ; Start 03/08/18 at 12:06; Stop 03/08/18 at 12:07; Status DC Fentanyl Citrate (Fentanyl 2ml Vial) 100 mcg STK-MED ONCE .ROUTE ; Start at 12:06; Stop 03/08/18 at 12:07; Status DC Heparin Sodium/ Sodium Chloride (HEPARIN for ARTERIAL LINE FLUSH) 1,000 unit 1X ONCE IART Last administered on 03/08/18at 12:30; Start 03/08/18 at 12:30; Stop 03/08/18 at 12:31; Status DC Lidocaine/Sodium Bicarbonate (Buffered Lidocaine 1%) 3 ml 1X ONCE IJ Last administered on 03/08/18at 12:15; Start 03/08/18 at 12:15; Stop 03/08/18 at 12 :21; Status DC Midazolam HCl (Versed) 2 mg 1X ONCE IV ; Start 03/08/18 at 12:15; Stop at 12:21; Status DC Fentanyl Citrate (Fentanyl 2ml Vial) 100 mcg 1X ONCE IV Last administered on 03/08/18at 12:15; Start 03/08/18 at 12:15; Stop 03/08/18 at 12:21; Status DC Iohexol (Omnipaque 300 Mg/ml) 100 ml 1X ONCE IART Last administered on at 12:15; Start 03/08/18 at 12:15; Stop 03/08/18 at 12:21; Status DC Phenylephrine HCl (Wander-Synephrine Inj) 10 mg STK-MED ONCE .ROUTE ; Start at 13:25; Stop 03/08/18 at 13:26; Status DC Succinylcholine Chloride (Anectine) 200 mg STK-MED ONCE .ROUTE ; Start at 14:55; Stop 03/08/18 at 14:56; Status DC Propofol 20 ml @ As Directed STK-MED ONCE IV ; Start 03/08/18 at 14:55; Stop 03/08/18 at 14:56; Status DC Ketamine HCl (Ketamine) 50 mg STK-MED ONCE .ROUTE ; Start 03/08/18 at 14:55; Stop 03/08/18 at 14:57; Status DC Dexamethasone Sodium Phosphate (Decadron) 20 mg STK-MED ONCE .ROUTE ; Start at 14:56; Stop 03/08/18 at 14:58; Status DC Ondansetron HCl (Zofran) 4 mg STK-MED ONCE .ROUTE ; Start 03/08/18 at 14:57; Stop 03/08/18 at 14:58; Status DC Lidocaine HCl (Lidocaine Pf 2% Vial) 5 ml STK-MED ONCE .ROUTE ; Start 03/08/18 at 14:57; Stop 03/08/18 at 14:58; Status DC Propofol 20 ml @ As Directed STK-MED ONCE IV ; Start 03/08/18 at 14:57; Stop 03/08/18 at 14:58; Status DC Fentanyl Citrate (Fentanyl 5ml Vial) 250 mcg STK-MED ONCE .ROUTE ; Start at 15:54; Stop 03/08/18 at 15:55; Status DC Rocuronium Warren (Zemuron) 100 mg STK-MED ONCE .ROUTE ; Start 03/08/18 at 15: 55; Stop 03/08/18 at 15:57; Status DC Cefazolin Sodium 100 ml @ As Directed STK-MED ONCE IV ; Start 03/08/18 at 15: 57; Stop 03/08/18 at 15:59; Status DC Cellulose (Surgicel Hemostat 4x8) 1 each STK-MED ONCE .ROUTE Last administered on 03/08/18at 15:53; Start 03/08/18 at 16:27; Stop 03/08/18 at 16:28; Status DC Cellulose (Surgicel Hemostat 2x3) 1 each STK-MED ONCE .ROUTE Last administered on 03/08/18at 15:53; Start 03/08/18 at 16:42; Stop 03/08/18 at 16:44; Status DC Cellulose (Surgicel Hemostat 2x14) 1 each STK-MED ONCE .ROUTE ; Start 03/08/18 at 16:42; Stop 03/08/18 at 16:44; Status DC Cellulose (Surgicel Hemostat 4x8) 1 each STK-MED ONCE .ROUTE Last administered on 03/08/18at 15:53; Start 03/08/18 at 16:42; Stop 03/08/18 at 16:44; Status DC Calcium Chloride (Calcium Chloride) 1,000 mg STK-MED ONCE .ROUTE ; Start at 17:03; Stop 03/08/18 at 17:04; Status DC Calcium Chloride (Calcium Chloride) 1,000 mg STK-MED ONCE .ROUTE ; Start at 17:03; Stop 03/08/18 at 17:04; Status DC Sodium Bicarbonate (Sodium Bicarb Adult 8.4% Syr) 50 meq STK-MED ONCE .ROUTE ; Start 03/08/18 at 17:03; Stop 03/08/18 at 17:04; Status DC Sodium Bicarbonate (Sodium Bicarb Adult 8.4% Syr) 50 meq STK-MED ONCE .ROUTE ; Start 03/08/18 at 17:03; Stop 03/08/18 at 17:04; Status DC Epinephrine HCl (EPINEPHrine SYRINGE) 1 mg STK-MED ONCE .ROUTE ; Start at 17:03; Stop 03/08/18 at 17:04; Status DC Albumin Human 500 ml @ As Directed STK-MED ONCE IV ; Start 03/08/18 at 17:03; Stop 03/08/18 at 17:04; Status DC Sodium Bicarbonate (Sodium Bicarb Adult 8.4% Syr) 50 meq STK-MED ONCE .ROUTE ; Start 03/08/18 at 17:07; Stop 03/08/18 at 17:08; Status DC Sodium Bicarbonate (Sodium Bicarb Adult 8.4% Syr) 50 meq STK-MED ONCE .ROUTE ; Start 03/08/18 at 17:07; Stop 03/08/18 at 17:08; Status DC Cellulose (Surgicel Hemostat 4x8) 1 each STK-MED ONCE TP Last administered on 03/08/18at 15:53; Start 03/08/18 at 15:53; Stop 03/08/18 at 17:40; Status DC Sodium Bicarbonate (Sodium Bicarb Adult 8.4% Syr) 50 meq STK-MED ONCE .ROUTE ; Start 03/08/18 at 17:35; Stop 03/08/18 at 17:37; Status DC Calcium Chloride (Calcium Chloride) 1,000 mg STK-MED ONCE .ROUTE ; Start at 17:35; Stop 03/08/18 at 17:37; Status DC Albumin Human 500 ml @ As Directed STK-MED ONCE IV ; Start 03/08/18 at 17:41; Stop 03/08/18 at 17:43; Status DC Norepinephrine Bitartrate 250 ml @ 1.875 mls/ hr 1X ONCE IV Last administered on 03/08/18at 21:00; Start 03/08/18 at 17:45; Stop 03/09/18 at 08 :10; Status DC Vasopressin 40 unit/Dextrose 102 ml @ 6 mls/hr 1X ONCE IV Last administered on 03/08/18at 20:41; Start 03/08/18 at 18:00; Stop 03/09/18 at 10:59; Status DC Calcium Chloride (Calcium Chloride) 1,000 mg STK-MED ONCE .ROUTE ; Start at 17:57; Stop 03/08/18 at 17:59; Status DC Sodium Bicarbonate (Sodium Bicarb Adult 8.4% Syr) 50 meq STK-MED ONCE .ROUTE ; Start 03/08/18 at 18:04; Stop 03/08/18 at 18:06; Status DC Sodium Bicarbonate (Sodium Bicarb Adult 8.4% Syr) 50 meq STK-MED ONCE .ROUTE ; Start 03/08/18 at 18:05; Stop 03/08/18 at 18:06; Status DC Sodium Bicarbonate (Sodium Bicarb Adult 8.4% Syr) 50 meq STK-MED ONCE .ROUTE ; Start 03/08/18 at 18:07; Stop 03/08/18 at 18:08; Status DC Sodium Bicarbonate (Sodium Bicarb Adult 8.4% Syr) 50 meq STK-MED ONCE .ROUTE ; Start 03/08/18 at 18:07; Stop 03/08/18 at 18:08; Status DC Epinephrine HCl (EPINEPHrine SYRINGE) 1 mg STK-MED ONCE .ROUTE ; Start at 18:40; Stop 03/08/18 at 18:41; Status DC Prochlorperazine Edisylate (Compazine) 10 mg STK-MED ONCE .ROUTE ; Start at 18:42; Stop 03/08/18 at 18:44; Status DC Fentanyl Citrate (Fentanyl 2ml Vial) 100 mcg STK-MED ONCE .ROUTE ; Start at 18:43; Stop 03/08/18 at 18:44; Status DC Sevoflurane (Ultane) 90 ml STK-MED ONCE IH ; Start 03/08/18 at 18:48; Stop at 18:49; Status DC Cellulose (Surgicel Hemostat 2x3) 1 each STK-MED ONCE TP Last administered on 03/08/18at 15:55; Start 03/08/18 at 15:55; Stop 03/08/18 at 19:04; Status DC Cellulose (Surgicel Hemostat 2x3) 1 each STK-MED ONCE TP Last administered on 03/08/18at 15:53; Start 03/08/18 at 15:53; Stop 03/08/18 at 19:04; Status DC Propofol 100 ml @ As Directed STK-MED ONCE IV ; Start 03/08/18 at 19:56; Stop 03/08/18 at 19:58; Status DC Famotidine (Pepcid) 20 mg BID PO ; Start 03/08/18 at 21:00; Stop 03/09/18 at 08:11; Status DC Sodium Chloride (Normal Saline Flush) 3 ml QSHIFT PRN IV AFTER MEDS AND BLOOD DRAWS; Start 03/08/18 at 20:45; Status Cancel Morphine Sulfate (Morphine Sulfate) 1 mg PRN Q1HR PRN IV PAIN Last administered on 03/08/18at 21:12; Start 03/08/18 at 20:45; Stop 03/10/18 at 18: 45; Status DC Ondansetron HCl (Zofran) 4 mg PRN Q6HRS PRN IV NAUESA, 1ST CHOICE; Start 03/08 at 20:45 Fentanyl Citrate 30 ml @ 0 mls/hr CONT PRN IV SEE PROTOCOL Last administered on 03/09/18at 23:16; Start 03/08/18 at 22:15 Fentanyl Citrate (Fentanyl 2ml Vial) 25 mcg PRN Q1HR PRN IV SEE COMMENTS; Start 03/08/18 at 22:15; Stop 03/10/18 at 18:45; Status DC Fentanyl Citrate (Fentanyl 2ml Vial) 50 mcg PRN Q1HR PRN IV SEE COMMENTS Last administered on 03/08/18at 22:41; Start 03/08/18 at 22:15 Chlorhexidine Gluconate (Peridex) 15 ml BID MM Last administered on 03/10/18at 21 :00; Start 03/09/18 at 09:00 Midazolam HCl 100 ml @ 0 mls/hr CONT PRN IV SEE PROTOCOL Last administered on 03/09/18at 21:43; Start 03/08/18 at 22:15; Stop 03/10/18 at 18:45; Status DC Factor IX (Pha) (Novoseven Rt) 1 mg 1X ONCE IV Last administered on at 01:09; Start 03/09/18 at 01:00; Stop 03/09/18 at 01:01; Status DC Lorazepam (Ativan) 2 mg STK-MED ONCE .ROUTE ; Start 03/09/18 at 01:15; Stop at 01:16; Status DC Norepinephrine Bitartrate 250 ml @ 1.875 mls/ hr CONT PRN IV SEE I/O RECORD Last administered on 03/09/18at 17:41; Start 03/09/18 at 01:45 Cefazolin Sodium/ Dextrose 50 ml @ 100 mls/hr 1X PREOP PRN IV PRIOR TO PROCEDURE Last administered on 03/09/18at 02:00; Start 03/09/18 at 02:00; Stop 03/10/18 at 01:59; Status DC Rocuronium Warren (Zemuron) 100 mg STK-MED ONCE .ROUTE ; Start 03/09/18 at 01: 57; Stop 03/09/18 at 01:59; Status DC Fentanyl Citrate (Fentanyl 5ml Vial) 250 mcg STK-MED ONCE .ROUTE ; Start at 02:13; Stop 03/09/18 at 02:14; Status DC Cellulose (Surgicel Hemostat 2x3) 1 each STK-MED ONCE .ROUTE ; Start 03/09/18 at 02:23; Stop 03/09/18 at 02:25; Status DC Cellulose (Surgicel Hemostat 2x14) 1 each STK-MED ONCE .ROUTE ; Start 03/09/18 at 02:23; Stop 03/09/18 at 02:25; Status DC Cellulose (Surgicel Hemostat 4x8) 1 each STK-MED ONCE .ROUTE Last administered on 03/09/18at 02:04; Start 03/09/18 at 02:23; Stop 03/09/18 at 02:25; Status DC Sodium Chloride (Normal Saline Flush) 3 ml QSHIFT PRN IV AFTER MEDS AND BLOOD DRAWS; Start 03/09/18 at 03:30 Cellulose (Surgicel Hemostat 4x8) 1 each STK-MED ONCE TP Last administered on 03/09/18at 02:04; Start 03/09/18 at 02:04; Stop 03/09/18 at 03:20; Status DC Cellulose (Surgicel Hemostat 4x8) 1 each STK-MED ONCE TP Last administered on 03/09/18at 02:04; Start 03/09/18 at 02:04; Stop 03/09/18 at 03:20; Status DC Sodium Bicarbonate (Sodium Bicarb Adult 8.4% Syr) 150 meq STK-MED ONCE .ROUTE ; Start 03/08/18 at 10:00; Stop 03/09/18 at 10:30; Status DC Dopamine HCl/ Dextrose (DOPamine 400MG/ 250ML PREMIX) 400 mg STK-MED ONCE IV ; Start 03/08/18 at 10:00; Stop 03/09/18 at 10:30; Status DC Potassium Chloride/Dextrose 1,000 ml @ 100 mls/hr Q10H IV Last administered on 03/09/18at 11:22; Start 03/09/18 at 11:00; Stop 03/09/18 at 20:59; Status DC Magnesium Sulfate/ Dextrose 100 ml @ 25 mls/hr 1X ONCE IV Last administered on 03/09/18at 13:45; Start 03/09/18 at 12:45; Stop 03/09/18 at 16:44; Status DC Potassium Chloride/Water 50 ml @ 50 mls/hr 1X ONCE IV Last administered on at 13:43; Start 03/09/18 at 12:45; Stop 03/09/18 at 13:44; Status DC Magnesium Sulfate 50 ml @ 25 mls/hr PRN DAILY PRN IV for Mag < 1.7 on am labs Last administered on 03/10/18at 06:17; Start 03/09/18 at 13:45 Sodium Chloride 500 ml @ 500 mls/hr QIDPRN PRN IV U/O <30 cc/hr Last administered on 03/10/18at 09:00; Start 03/09/18 at 19:45 Info (Tpn Per Pharmacy) 1 each PRN DAILY PRN MC SEE COMMENTS; Start 03/10/18 at 09:00; Stop 03/10/18 at 12:42; Status DC Potassium Phosphate 13.6 mmol/Dextrose 104.5333 ml @ 52.267 m... Q2H IV Last administered on 03/10/18at 10:34; Start 03/10/18 at 10:00; Stop 03/10/18 at 11:59; Status DC Amino Acids/ Glycerin/ Electrolytes 1,000 ml @ 100 mls/hr Q10H IV Last administered on 03/10/18at 22:47; Start 03/10/18 at 13:00 Ringer's Solution 500 ml @ 500 mls/hr 1X ONCE IV Last administered on at 18:55; Start 03/10/18 at 19:45; Stop 03/10/18 at 20:44; Status DC Dextrose (Dextrose 50%-Water Syringe) 12.5 gm PRN Q15MIN PRN IV SEE COMMENTS; Start 03/11/18 at 07:00 Ringer's Solution 500 ml @ 500 mls/hr Q1H PRN IV FLUID LOSS; Start 03/11/18 at 07:00 Pantoprazole Sodium (PROTONIX VIAL for IV PUSH) 40 mg DAILY IVP ; Start 03/12/18 at 09:00 Potassium Phosphate 13.6 mmol/Dextrose 104.5333 ml @ 52.267 m... Q2H IV ; Start 03/11/18 at 14:00; Stop 03/11/18 at 19:59 Active Scripts Active Reported Prilosec Otc (Omeprazole Magnesium) 20 Mg Tablet. 1 Tab PO DAILY Simvastatin 20 Mg Tablet 1 Tab PO QHS Vitals/I & O Vital Sign - Last 24 Hours 03/10/18 03/10/18 03/10/18 03/10/18 14:00 15:00 15:25 16:00 Temp 99.7 99.7 Pulse 90 96 82 Resp 14 14 14 B/P (MAP) 108/56 (73) 108/55 (72) 114/56 (75) Pulse Ox 100 100 100 100 O2 Delivery Ventilator Ventilator Ventilator Ventilator 03/10/18 03/10/18 03/10/18 03/10/18 16:00 16:00 17:00 17:35 Pulse 82 89 Resp 16 B/P (MAP) 104/54 (71) Pulse Ox 100 100 O2 Delivery Mechanical Ventilator Ventilator Ventilator 03/10/18 03/10/18 03/10/18 03/10/18 18:10 19:00 20:00 20:00 Temp 100.1 100.1 Pulse 85 78 80 Resp 13 10 11 B/P (MAP) 100/57 (71) 112/54 (73) 104/50 (68) Pulse Ox 100 100 100 O2 Delivery Ventilator Ventilator Mechanical Ventilator Ventilator 03/10/18 03/10/18 03/10/18 03/10/18 20:00 20:41 21:00 21:50 Pulse 78 80 Resp 14 B/P (MAP) 102/52 (69) Pulse Ox 100 100 100 O2 Delivery Ventilator Ventilator Ventilator 03/10/18 03/10/18 03/10/18 03/10/18 22:00 23:00 23:15 23:59 Pulse 82 86 Resp 14 14 B/P (MAP) 102/50 (67) 112/53 (72) Pulse Ox 100 100 100 O2 Delivery Ventilator Ventilator Ventilator Mechanical Ventilator 03/11/18 03/11/18 03/11/18 03/11/18 00:00 00:00 01:00 02:00 Temp 99.5 99.5 Pulse 87 82 82 82 Resp 13 11 11 B/P (MAP) 104/52 (69) 132/66 (88) 114/56 (75) Pulse Ox 100 100 100 O2 Delivery Ventilator Ventilator Ventilator 03/11/18 03/11/18 03/11/18 03/11/18 02:30 03:00 04:00 04:00 Temp 99.6 99.6 Pulse 80 86 80 Resp 15 15 B/P (MAP) 104/52 (69) 106/55 (72) Pulse Ox 100 100 100 O2 Delivery Ventilator Ventilator Ventilator 03/11/18 03/11/18 03/11/18 03/11/18 04:00 04:15 05:00 06:00 Pulse 76 76 Resp 15 15 B/P (MAP) 104/56 (72) 106/52 (70) Pulse Ox 100 100 100 O2 Delivery Mechanical Ventilator Ventilator Ventilator Ventilator 03/11/18 03/11/18 03/11/18 03/11/18 07:00 08:00 09:00 09:08 Temp 99.3 99.3 Pulse 78 74 76 Resp 15 15 15 B/P (MAP) 104/60 (75) 96/54 (68) 92/56 (68) Pulse Ox 100 100 100 100 O2 Delivery Ventilator Ventilator Ventilator Ventilator 03/11/18 03/11/18 10:30 12:38 Pulse Ox 100 100 O2 Delivery Ventilator Ventilator Intake and Output 03/10/18 03/10/18 03/11/18 15:01 23:01 07:01 Intake Total 0 ml 198 ml 688 ml Output Total 1230 ml 1130 ml 905 ml Balance -1230 ml -932 ml -217 ml MIKE RAY MD Mar 11, 2018 13:51
[2018-03-11] MEDS: AMINO AC 3%/ELECTROLYTE/GLYCER 1,000 ML IV SCH ×2 (15:04→21:42)
[2018-03-11] MEDS: POTASSIUM PHOSPHATE DIBASIC 13.6 MMOL in IV DEXTROSE 5% 100ML 100 ML IV SCH ×3 (15:06→21:42)
--- NOTE | 2018-03-11 18:07 | PATHOLOGY ---
[facility] Accession Number: [id number] . 01 Material submitted: . SPLEEN . 01 Clinical history: . GI bleed . 02 Diagnosis: Spleen, splenectomy: - Focal capsular disruption and recent hemorrhage. - Mild congestion of splenic red pulp (splenic weight: 145 grams). . (JPM:mml; 03/11/2018) QL/03/11/2018 . 02 Electronically signed: . Prateek Flynn MD, Pathologist NPI- [id number] . 01 Gross description: . The specimen is received in formalin, labeled "Ortiz, Thea, Spleen", is a 145 g, 15.5 x 8.0 x 3.5 cm spleen. The capsule is predominantly intact, mariee-brown and smooth with focal area of disruption adjacent to the hilum measuring 6.0 x 1.8 cm and is inked orange. the specimen is serially section to show a soft, red-mariee cut surface with no discrete fibrosis, necrosis or infarcts. Transport Tech tissue is submitted in A1-A3. ([facility]; 03/09/2018) [facility] . 02 Pathologist provided ICD-10: D73.5, D73.2 . 02 CPT . 019299 Specimen Comment: A courtesy copy of this report has been sent to Specimen Comment: [phone], , . Specimen Comment: Report sent to ,DR FIORE / DR RICHARD Specimen Comment: A duplicate report has been generated due to demographic updates. Performed at: [address], [place], [place] [id number] MD Michael Barrera MD Phone: [phone] Performed at: 02 [facility] [address] [place] [id number] MD Prateek Flynn MD Phone: [phone]
[2018-03-12] VITALS (20 sets, daily range): BP systolic 97–131; BP diastolic 42–70
[2018-03-12] MEDS: AMINO AC 3%/ELECTROLYTE/GLYCER 1,000 ML IV SCH ×2 (05:00→15:00)
[2018-03-12 05:40] LABS: BASO % 0 % (0-3); EOS # 0.3 x10^3/uL (0.0-0.7); EOS % 2 % (0-3); HEMATOCRIT 31.6 % (36.0-47.0); HEMOGLOBIN 10.9 g/dL (12.0-15.5); LYMPH # 2.2 x10^3/uL (1.0-4.8); LYMPH % 18 % (24-48); MEAN CORPUSCULAR HEMOGLOBIN 31 pg (25-35); MEAN CORPUSCULAR HGB CONC 34 g/dL (31-37); MEAN CORPUSCULAR VOLUME 90 fL (79-100); MONO # 1.3 x10^3/uL (0.0-1.1); MONO % 10 % (0-9); NEUT # 8.5 x10^3uL (1.8-7.7); NEUT % 69 % (31-73); PLATELET COUNT 88 x10^3/uL (140-400); RED BLOOD COUNT 3.52 x10^6/uL (3.50-5.40); RED CELL DISTRIBUTION WIDTH 14.8 % (11.5-14.5); WHITE BLOOD COUNT 12.3 x10^3/uL (4.0-11.0)
[2018-03-12 06:31] LABS: ALBUMIN 1.5 g/dL (3.4-5.0); CALCIUM 7.2 mg/dL (8.5-10.1); CREATININE 0.5 mg/dL (0.6-1.0); PHOSPHORUS 2.4 mg/dL (2.6-4.7); POTASSIUM 3.9 mmol/L (3.5-5.1)
--- NOTE | 2018-03-12 08:31 | NUR ---
SS following for discharge planning. SS phoned and faxed screen to [facility], ; fax [phone], to check criteria for LTAC. SS will await acceptance decision and insurance determination and will proceed accordingly.
[2018-03-12 08:56] LABS: BASE EXCESS ABG -2 mmol/L (-3-3); HCO3 ABG 21 mmol/L (21-28); PCO2 ABG 29 mmHg (35-46); PO2 ABG 131 mmHg (65-108); SAT O2 ABG 98 % (92-99)
[2018-03-12 08:59] LABS: FIO2 ABG 35
--- NOTE | 2018-03-12 09:18 | PDOC ---
SUBJECTIVE ROS Patient remains sedated intubated on the vent. Unable to get review of systems. Urine output has picked up. Significant extravasation around the TERE drain OBJECTIVE Vital Signs Vital Signs Date Time Temp Pulse Resp B/P (MAP) Pulse Ox O2 Delivery O2 Flow Rate FiO2 03/12/18 08:55 100 03/12/18 07:50 Ventilator 03/12/18 02:00 76 15 100/46 (64) 03/12/18 00:00 100.6 100.6 I & 0 Intake and Output 03/12/18 07:01 Intake Total 2967 ml Output Total 2135 ml Balance 832 ml Intake Oral 0 ml IV Total 2967 ml Output Urine Total 1175 ml Gastric Drainage Total 200 ml Drainage Total 760 ml PHYSICAL EXAM Physical Exam General Appearance: min Sedated and intubated on the vent currently. More awake today. In no Distress Eyes: Sclera appears anicteric Conjunctiva Normal EN: No EN Drainage Mucous Memb. moist, orally intubated Neck: no JVD min JVP Supple no Thyromegaly CVS: S1 S2 soft Murmur No Gallop No Rub no Edema Resp: no Rales no Rhonchi no Acc. Muscle use GI: BS hypoactive NO Bruit Non Tender Non Distended : no CVA tenderness; no Suprapubic Tenderness Assessment & Plan Oliguria: now resolved Intra Vascular volume depletion - resolved with IVF Hyper natremia: Hypotonic IV fluids in the form off PPN. for 1 more liter then change to TPN Nutrition: PPN for now. We'll start TPNtonight Sev HypoAlbuminemia - IV Alb as ordered, Precise etiology unclear, most likely related to underlying liver issues Lowish phosphorus: Replace as ordered with K-Phos I will sign off for now. We'll be available if needed COMMENT/RELEVANT DATA Meds Current Medications Medications (Trade) Dose Ordered Sig/Aliza Start Time Stop Time Status Last Admin Dose Admin Albumin Human 500 ml @ As Directed STK-MED ONCE 03/08/18 17:41 03/08/18 17:43 DC Amino Acids/ Glycerin/ Electrolytes 1,000 ml @ 100 mls/hr Q10H 03/10/18 13:00 03/11/18 21:42 100 MLS/HR Calcium Chloride (Calcium Chloride) 1,000 mg STK-MED ONCE 03/08/18 17:57 03/08/18 17:59 DC Cefazolin Sodium 100 ml @ As Directed STK-MED ONCE 03/08/18 15:57 03/08/18 15:59 DC Cefazolin Sodium/ Dextrose 50 ml @ 100 mls/hr 1X PREOP PRN 03/09/18 02:00 03/10/18 01:59 DC 03/09/18 02:00 100 MLS/HR Cellulose (Surgicel Hemostat 2x14) 1 each STK-MED ONCE 03/09/18 02:23 03/09/18 02:25 DC Cellulose (Surgicel Hemostat 2x3) 1 each STK-MED ONCE 03/09/18 02:23 03/09/18 02:25 DC Cellulose (Surgicel Hemostat 4x8) 1 each STK-MED ONCE 03/09/18 02:04 03/09/18 03:20 DC 03/09/18 02:04 1 EACH Chlorhexidine Gluconate (Peridex) 15 ml BID 03/09/18 09:00 03/11/18 21:42 15 ML Dexamethasone Sodium Phosphate (Decadron) 20 mg STK-MED ONCE 03/08/18 14:56 03/08/18 14:58 DC Dextrose (Dextrose 50%-Water Syringe) 12.5 gm PRN Q15MIN PRN 03/11/18 07:00 Dopamine HCl/ Dextrose (DOPamine 400MG/ 250ML PREMIX) 400 mg STK-MED ONCE 03/08/18 10:00 03/09/18 10:30 DC Epinephrine HCl (EPINEPHrine SYRINGE) 1 mg STK-MED ONCE 03/08/18 18:40 03/08/18 18:41 DC Factor IX (Pha) (Novoseven Rt) 1 mg 1X ONCE 03/09/18 01:00 03/09/18 01:01 DC 03/09/18 01:09 1 MG Famotidine (Pepcid) 20 mg BID 03/08/18 21:00 03/09/18 08:11 DC Fentanyl Citrate (Fentanyl 2ml Vial) 50 mcg PRN Q1HR PRN 03/08/18 22:15 03/08/18 22:41 50 MCG Fentanyl Citrate (Fentanyl 5ml Vial) 250 mcg STK-MED ONCE 03/09/18 02:13 03/09/18 02:14 DC Heparin Sodium/ Sodium Chloride (HEPARIN for ARTERIAL LINE FLUSH) 1,000 unit 1X ONCE 03/08/18 12:30 03/08/18 12:31 DC 03/08/18 12:30 1,000 UNIT Info (CONTRAST GIVEN -- Rx MONITORING) 1 each PRN DAILY PRN 03/07/18 19:15 03/09/18 19:14 DC Info (Tpn Per Pharmacy) 1 each PRN DAILY PRN 03/10/18 09:00 03/10/18 12:42 DC Iohexol (Omnipaque 300 Mg/ml) 100 ml 1X ONCE 03/08/18 12:15 03/08/18 12:21 DC 03/08/18 12:15 95 ML Ketamine HCl (Ketamine) 50 mg STK-MED ONCE 03/08/18 14:55 03/08/18 14:57 DC Lidocaine HCl (Lidocaine Pf 2% Vial) 5 ml STK-MED ONCE 03/08/18 14:57 03/08/18 14:58 DC Lidocaine/Sodium Bicarbonate (Buffered Lidocaine 1%) 3 ml 1X ONCE 03/08/18 12:15 03/08/18 12:21 DC 03/08/18 12:15 5 ML Lorazepam (Ativan) 2 mg STK-MED ONCE 03/09/18 01:15 03/09/18 01:16 DC Magnesium Sulfate 50 ml @ 25 mls/hr PRN DAILY PRN 03/09/18 13:45 03/10/18 06:17 25 MLS/HR Magnesium Sulfate/ Dextrose 100 ml @ 25 mls/hr 1X ONCE 03/09/18 12:45 03/09/18 16:44 DC 03/09/18 13:45 25 MLS/HR Midazolam HCl 100 ml @ 0 mls/hr CONT PRN 03/08/18 22:15 03/10/18 18:45 DC 03/09/18 21:43 5 MLS/HR Midazolam HCl (Versed) 2 mg 1X ONCE 03/08/18 12:15 03/08/18 12:21 DC Morphine Sulfate (Morphine Sulfate) 1 mg PRN Q1HR PRN 03/08/18 20:45 03/10/18 18:45 DC 03/08/18 21:12 1 MG Norepinephrine Bitartrate 250 ml @ 1.875 mls/ hr CONT PRN 03/09/18 01:45 03/09/18 17:41 3.75 MLS/HR Octreotide Acetate 500 mcg/ Sodium Chloride 101 ml @ 5.05 mls/hr CONT PRN 03/07/18 19:30 03/09/18 11:47 DC 03/09/18 10:38 5.05 MLS/HR Ondansetron HCl (Zofran) 4 mg PRN Q6HRS PRN 03/08/18 20:45 Pantoprazole Sodium (PROTONIX VIAL for IV PUSH) 40 mg DAILY 03/12/18 09:00 Pantoprazole Sodium 80 mg/ Sodium Chloride 100 ml @ 10 mls/hr Q10H 03/07/18 23:00 03/11/18 11:10 DC 03/10/18 22:46 10 MLS/HR Phenylephrine HCl (Wander-Synephrine Inj) 10 mg STK-MED ONCE 03/08/18 13:25 03/08/18 13:26 DC Potassium Chloride/Dextrose 1,000 ml @ 100 mls/hr Q10H 03/09/18 11:00 03/09/18 20:59 DC 03/09/18 11:22 100 MLS/HR Potassium Chloride/Water 50 ml @ 50 mls/hr 1X ONCE 03/09/18 12:45 03/09/18 13:44 DC 03/09/18 13:43 50 MLS/HR Potassium Phosphate 13.6 mmol/Dextrose 104.5333 ml @ 52.267 m... Q2H 03/11/18 14:00 03/11/18 19:59 DC 03/11/18 21:42 52.267 MLS/HR Prochlorperazine Edisylate (Compazine) 10 mg STK-MED ONCE 03/08/18 18:42 03/08/18 18:44 DC Propofol 100 ml @ As Directed STK-MED ONCE 03/08/18 19:56 03/08/18 19:58 DC Ringer's Solution 500 ml @ 500 mls/hr Q1H PRN 03/11/18 07:00 Rocuronium Honeydew (Zemuron) 100 mg STK-MED ONCE 03/09/18 01:57 03/09/18 01:59 DC Sevoflurane (Ultane) 90 ml STK-MED ONCE 03/08/18 18:48 12/30/18 18:49 DC Sodium Bicarbonate (Sodium Bicarb Adult 8.4% Syr) 150 meq STK-MED ONCE 03/08/18 10:00 03/09/18 10:30 DC Sodium Chloride 500 ml @ 500 mls/hr QIDPRN PRN 03/09/18 19:45 03/10/18 09:00 500 MLS/HR Sodium Chloride (Normal Saline Flush) 3 ml QSHIFT PRN 03/09/18 03:30 Succinylcholine Chloride (Anectine) 200 mg STK-MED ONCE 03/08/18 14:55 03/08/18 14:56 DC Vasopressin 40 unit/Dextrose 102 ml @ 6 mls/hr 1X ONCE 03/08/18 18:00 03/09/18 10:59 DC 03/08/18 20:41 6 MLS/HR Lab Laboratory Tests Test 03/11/18 09:20 03/12/18 05:30 03/12/18 08:45 O2 Saturation 98 % (92-99) 98 % (92-99) Arterial Blood pH 7.51 (7.35-7.45) 7.48 (7.35-7.45) Arterial Blood pCO2 at Patient Temp 30 mmHg (35-46) 29 mmHg (35-46) Arterial Blood pO2 at Patient Temp 109 mmHg (65-108) 131 mmHg (65-108) Arterial Blood HCO3 23 mmol/L (21-28) 21 mmol/L (21-28) Arterial Blood Base Excess 1 mmol/L (-3-3) -2 mmol/L (-3-3) FiO2 35 35 White Blood Count 12.3 x10^3/uL (4.0-11.0) Red Blood Count 3.52 x10^6/uL (3.50-5.40) Hemoglobin 10.9 g/dL (12.0-15.5) Hematocrit 31.6 % (36.0-47.0) Mean Corpuscular Volume 90 fL (79-100) Mean Corpuscular Hemoglobin 31 pg (25-35) Mean Corpuscular Hemoglobin Concent 34 g/dL (31-37) Red Cell Distribution Width 14.8 % (11.5-14.5) Platelet Count 88 x10^3/uL (140-400) Neutrophils (%) (Auto) 69 % (31-73) Lymphocytes (%) (Auto) 18 % (24-48) Monocytes (%) (Auto) 10 % (0-9) Eosinophils (%) (Auto) 2 % (0-3) Basophils (%) (Auto) 0 % (0-3) Neutrophils # (Auto) 8.5 x10^3uL (1.8-7.7) Lymphocytes # (Auto) 2.2 x10^3/uL (1.0-4.8) Monocytes # (Auto) 1.3 x10^3/uL (0.0-1.1) Eosinophils # (Auto) 0.3 x10^3/uL (0.0-0.7) Basophils # (Auto) 0.0 x10^3/uL (0.0-0.2) Sodium Level 142 mmol/L (136-145) Potassium Level 3.9 mmol/L (3.5-5.1) Chloride Level 111 mmol/L (98-107) Carbon Dioxide Level 25 mmol/L (21-32) Anion Gap 6 (6-14) Blood Urea Nitrogen 17 mg/dL (7-20) Creatinine 0.5 mg/dL (0.6-1.0) Estimated GFR (Cockcroft-Gault) 122.0 Glucose Level 109 mg/dL (70-99) Calcium Level 7.2 mg/dL (8.5-10.1) Phosphorus Level 2.4 mg/dL (2.6-4.7) Albumin 1.5 g/dL (3.4-5.0) Results All relevant outside records, renal labs, imaging studies, telemetry/EKG's were reviewed. BRAXTON HUFFMAN MD Mar 12, 2018 09:18
--- NOTE | 2018-03-12 09:25 | PDOC ---
PULMONARY PROGRESS NOTES Subjective OFF SEDATION ON PS Vitals Vital Signs Date Time Temp Pulse Resp B/P (MAP) Pulse Ox O2 Delivery O2 Flow Rate FiO2 03/12/18 08:55 100 03/12/18 07:50 Ventilator 03/12/18 02:00 76 15 100/46 (64) 03/12/18 00:00 100.6 100.6 Lungs: Clear Cardiovascular: S1, S2 Abdomen: Soft Skin: Warm, Dry Labs Laboratory Tests Test 03/10/18 09:35 03/10/18 17:20 03/11/18 05:25 03/11/18 09:20 O2 Saturation 98 % (92-99) 98 % (92-99) Arterial Blood pH 7.46 (7.35-7.45) 7.51 (7.35-7.45) Arterial Blood pCO2 at Patient Temp 36 mmHg (35-46) 30 mmHg (35-46) Arterial Blood pO2 at Patient Temp 106 mmHg (65-108) 109 mmHg (65-108) Arterial Blood HCO3 25 mmol/L (21-28) 23 mmol/L (21-28) Arterial Blood Base Excess 1 mmol/L (-3-3) 1 mmol/L (-3-3) FiO2 35 35 Hemoglobin 11.9 g/dL (12.0-15.5) 11.0 g/dL (12.0-15.5) Magnesium Level 2.2 mg/dL (1.8-2.4) 2.0 mg/dL (1.8-2.4) White Blood Count 13.3 x10^3/uL (4.0-11.0) Red Blood Count 3.58 x10^6/uL (3.50-5.40) Hematocrit 31.8 % (36.0-47.0) Mean Corpuscular Volume 89 fL (79-100) Mean Corpuscular Hemoglobin 31 pg (25-35) Mean Corpuscular Hemoglobin Concent 35 g/dL (31-37) Red Cell Distribution Width 15.6 % (11.5-14.5) Platelet Count 74 x10^3/uL (140-400) Neutrophils (%) (Auto) 72 % (31-73) Lymphocytes (%) (Auto) 16 % (24-48) Monocytes (%) (Auto) 11 % (0-9) Eosinophils (%) (Auto) 1 % (0-3) Basophils (%) (Auto) 0 % (0-3) Neutrophils # (Auto) 9.6 x10^3uL (1.8-7.7) Lymphocytes # (Auto) 2.1 x10^3/uL (1.0-4.8) Monocytes # (Auto) 1.4 x10^3/uL (0.0-1.1) Eosinophils # (Auto) 0.1 x10^3/uL (0.0-0.7) Basophils # (Auto) 0.0 x10^3/uL (0.0-0.2) Sodium Level 146 mmol/L (136-145) Potassium Level 3.7 mmol/L (3.5-5.1) Chloride Level 114 mmol/L (98-107) Carbon Dioxide Level 26 mmol/L (21-32) Anion Gap 6 (6-14) Blood Urea Nitrogen 25 mg/dL (7-20) Creatinine 0.5 mg/dL (0.6-1.0) Estimated GFR (Cockcroft-Gault) 122.0 Glucose Level 120 mg/dL (70-99) Calcium Level 7.2 mg/dL (8.5-10.1) Ionized Calcium 1.05 mmol/L (1.13-1.32) Phosphorus Level 2.0 mg/dL (2.6-4.7) Albumin 1.6 g/dL (3.4-5.0) Test 03/12/18 05:30 03/12/18 08:45 White Blood Count 12.3 x10^3/uL (4.0-11.0) Red Blood Count 3.52 x10^6/uL (3.50-5.40) Hemoglobin 10.9 g/dL (12.0-15.5) Hematocrit 31.6 % (36.0-47.0) Mean Corpuscular Volume 90 fL (79-100) Mean Corpuscular Hemoglobin 31 pg (25-35) Mean Corpuscular Hemoglobin Concent 34 g/dL (31-37) Red Cell Distribution Width 14.8 % (11.5-14.5) Platelet Count 88 x10^3/uL (140-400) Neutrophils (%) (Auto) 69 % (31-73) Lymphocytes (%) (Auto) 18 % (24-48) Monocytes (%) (Auto) 10 % (0-9) Eosinophils (%) (Auto) 2 % (0-3) Basophils (%) (Auto) 0 % (0-3) Neutrophils # (Auto) 8.5 x10^3uL (1.8-7.7) Lymphocytes # (Auto) 2.2 x10^3/uL (1.0-4.8) Monocytes # (Auto) 1.3 x10^3/uL (0.0-1.1) Eosinophils # (Auto) 0.3 x10^3/uL (0.0-0.7) Basophils # (Auto) 0.0 x10^3/uL (0.0-0.2) Sodium Level 142 mmol/L (136-145) Potassium Level 3.9 mmol/L (3.5-5.1) Chloride Level 111 mmol/L (98-107) Carbon Dioxide Level 25 mmol/L (21-32) Anion Gap 6 (6-14) Blood Urea Nitrogen 17 mg/dL (7-20) Creatinine 0.5 mg/dL (0.6-1.0) Estimated GFR (Cockcroft-Gault) 122.0 Glucose Level 109 mg/dL (70-99) Calcium Level 7.2 mg/dL (8.5-10.1) Phosphorus Level 2.4 mg/dL (2.6-4.7) Albumin 1.5 g/dL (3.4-5.0) O2 Saturation 98 % (92-99) Arterial Blood pH 7.48 (7.35-7.45) Arterial Blood pCO2 at Patient Temp 29 mmHg (35-46) Arterial Blood pO2 at Patient Temp 131 mmHg (65-108) Arterial Blood HCO3 21 mmol/L (21-28) Arterial Blood Base Excess -2 mmol/L (-3-3) FiO2 35 Laboratory Tests Test 03/12/18 05:30 03/12/18 08:45 White Blood Count 12.3 x10^3/uL (4.0-11.0) Red Blood Count 3.52 x10^6/uL (3.50-5.40) Hemoglobin 10.9 g/dL (12.0-15.5) Hematocrit 31.6 % (36.0-47.0) Mean Corpuscular Volume 90 fL (79-100) Mean Corpuscular Hemoglobin 31 pg (25-35) Mean Corpuscular Hemoglobin Concent 34 g/dL (31-37) Red Cell Distribution Width 14.8 % (11.5-14.5) Platelet Count 88 x10^3/uL (140-400) Neutrophils (%) (Auto) 69 % (31-73) Lymphocytes (%) (Auto) 18 % (24-48) Monocytes (%) (Auto) 10 % (0-9) Eosinophils (%) (Auto) 2 % (0-3) Basophils (%) (Auto) 0 % (0-3) Neutrophils # (Auto) 8.5 x10^3uL (1.8-7.7) Lymphocytes # (Auto) 2.2 x10^3/uL (1.0-4.8) Monocytes # (Auto) 1.3 x10^3/uL (0.0-1.1) Eosinophils # (Auto) 0.3 x10^3/uL (0.0-0.7) Basophils # (Auto) 0.0 x10^3/uL (0.0-0.2) Sodium Level 142 mmol/L (136-145) Potassium Level 3.9 mmol/L (3.5-5.1) Chloride Level 111 mmol/L (98-107) Carbon Dioxide Level 25 mmol/L (21-32) Anion Gap 6 (6-14) Blood Urea Nitrogen 17 mg/dL (7-20) Creatinine 0.5 mg/dL (0.6-1.0) Estimated GFR (Cockcroft-Gault) 122.0 Glucose Level 109 mg/dL (70-99) Calcium Level 7.2 mg/dL (8.5-10.1) Phosphorus Level 2.4 mg/dL (2.6-4.7) Albumin 1.5 g/dL (3.4-5.0) O2 Saturation 98 % (92-99) Arterial Blood pH 7.48 (7.35-7.45) Arterial Blood pCO2 at Patient Temp 29 mmHg (35-46) Arterial Blood pO2 at Patient Temp 131 mmHg (65-108) Arterial Blood HCO3 21 mmol/L (21-28) Arterial Blood Base Excess -2 mmol/L (-3-3) FiO2 35 Medications Active Scripts Medications Dose Route/Sig Max Daily Dose Days Date Category Prilosec Otc (Omeprazole Magnesium) 20 Mg Tablet.dr 1 Tab PO DAILY 03/07/18 Reported Simvastatin 20 Mg Tablet 1 Tab PO QHS 03/07/18 Reported Impression . 1. respiratory failure Expected post-op multifactorial 2. GI bleed stabilized 3. cirrhosis 4. hx resected hepatocellular carcinoma 5. ENCEPHALOPATHY SUSPECT METABOLIC Plan . patient doing well on spontaneous trial pressure of 5 stated the she is more awake and moving upper extremities not ready for extubation, will continue the same for now, needs to be more awake and alert CORINA ROBERSON MD Mar 12, 2018 09:25
--- NOTE | 2018-03-12 09:58 | PDOC ---
SURGICAL PROGRESS NOTE Subjective vent, on trial d/w nursing serous drainage Vital Signs Vital Signs Date Time Temp Pulse Resp B/P (MAP) Pulse Ox O2 Delivery O2 Flow Rate FiO2 03/12/18 08:55 100 03/12/18 07:50 Ventilator 03/12/18 02:00 76 15 100/46 (64) 03/12/18 00:00 100.6 100.6 I&O Intake and Output 03/12/18 07:01 Intake Total 2967 ml Output Total 2135 ml Balance 832 ml Intake Oral 0 ml IV Total 2967 ml Output Urine Total 1175 ml Gastric Drainage Total 200 ml Drainage Total 760 ml General: No acute distress Abdomen: Soft, Other ( gtube and gorge in place) Labs Laboratory Tests Test 03/10/18 17:20 03/11/18 05:25 03/11/18 09:20 03/12/18 05:30 Hemoglobin 11.9 g/dL (12.0-15.5) 11.0 g/dL (12.0-15.5) 10.9 g/dL (12.0-15.5) Magnesium Level 2.2 mg/dL (1.8-2.4) 2.0 mg/dL (1.8-2.4) White Blood Count 13.3 x10^3/uL (4.0-11.0) 12.3 x10^3/uL (4.0-11.0) Red Blood Count 3.58 x10^6/uL (3.50-5.40) 3.52 x10^6/uL (3.50-5.40) Hematocrit 31.8 % (36.0-47.0) 31.6 % (36.0-47.0) Mean Corpuscular Volume 89 fL (79-100) 90 fL (79-100) Mean Corpuscular Hemoglobin 31 pg (25-35) 31 pg (25-35) Mean Corpuscular Hemoglobin Concent 35 g/dL (31-37) 34 g/dL (31-37) Red Cell Distribution Width 15.6 % (11.5-14.5) 14.8 % (11.5-14.5) Platelet Count 74 x10^3/uL (140-400) 88 x10^3/uL (140-400) Neutrophils (%) (Auto) 72 % (31-73) 69 % (31-73) Lymphocytes (%) (Auto) 16 % (24-48) 18 % (24-48) Monocytes (%) (Auto) 11 % (0-9) 10 % (0-9) Eosinophils (%) (Auto) 1 % (0-3) 2 % (0-3) Basophils (%) (Auto) 0 % (0-3) 0 % (0-3) Neutrophils # (Auto) 9.6 x10^3uL (1.8-7.7) 8.5 x10^3uL (1.8-7.7) Lymphocytes # (Auto) 2.1 x10^3/uL (1.0-4.8) 2.2 x10^3/uL (1.0-4.8) Monocytes # (Auto) 1.4 x10^3/uL (0.0-1.1) 1.3 x10^3/uL (0.0-1.1) Eosinophils # (Auto) 0.1 x10^3/uL (0.0-0.7) 0.3 x10^3/uL (0.0-0.7) Basophils # (Auto) 0.0 x10^3/uL (0.0-0.2) 0.0 x10^3/uL (0.0-0.2) Sodium Level 146 mmol/L (136-145) 142 mmol/L (136-145) Potassium Level 3.7 mmol/L (3.5-5.1) 3.9 mmol/L (3.5-5.1) Chloride Level 114 mmol/L (98-107) 111 mmol/L (98-107) Carbon Dioxide Level 26 mmol/L (21-32) 25 mmol/L (21-32) Anion Gap 6 (6-14) 6 (6-14) Blood Urea Nitrogen 25 mg/dL (7-20) 17 mg/dL (7-20) Creatinine 0.5 mg/dL (0.6-1.0) 0.5 mg/dL (0.6-1.0) Estimated GFR (Cockcroft-Gault) 122.0 122.0 Glucose Level 120 mg/dL (70-99) 109 mg/dL (70-99) Calcium Level 7.2 mg/dL (8.5-10.1) 7.2 mg/dL (8.5-10.1) Ionized Calcium 1.05 mmol/L (1.13-1.32) Phosphorus Level 2.0 mg/dL (2.6-4.7) 2.4 mg/dL (2.6-4.7) Albumin 1.6 g/dL (3.4-5.0) 1.5 g/dL (3.4-5.0) O2 Saturation 98 % (92-99) Arterial Blood pH 7.51 (7.35-7.45) Arterial Blood pCO2 at Patient Temp 30 mmHg (35-46) Arterial Blood pO2 at Patient Temp 109 mmHg (65-108) Arterial Blood HCO3 23 mmol/L (21-28) Arterial Blood Base Excess 1 mmol/L (-3-3) FiO2 35 Test 03/12/18 08:45 O2 Saturation 98 % (92-99) Arterial Blood pH 7.48 (7.35-7.45) Arterial Blood pCO2 at Patient Temp 29 mmHg (35-46) Arterial Blood pO2 at Patient Temp 131 mmHg (65-108) Arterial Blood HCO3 21 mmol/L (21-28) Arterial Blood Base Excess -2 mmol/L (-3-3) FiO2 35 Laboratory Tests Test 03/12/18 05:30 03/12/18 08:45 White Blood Count 12.3 x10^3/uL (4.0-11.0) Red Blood Count 3.52 x10^6/uL (3.50-5.40) Hemoglobin 10.9 g/dL (12.0-15.5) Hematocrit 31.6 % (36.0-47.0) Mean Corpuscular Volume 90 fL (79-100) Mean Corpuscular Hemoglobin 31 pg (25-35) Mean Corpuscular Hemoglobin Concent 34 g/dL (31-37) Red Cell Distribution Width 14.8 % (11.5-14.5) Platelet Count 88 x10^3/uL (140-400) Neutrophils (%) (Auto) 69 % (31-73) Lymphocytes (%) (Auto) 18 % (24-48) Monocytes (%) (Auto) 10 % (0-9) Eosinophils (%) (Auto) 2 % (0-3) Basophils (%) (Auto) 0 % (0-3) Neutrophils # (Auto) 8.5 x10^3uL (1.8-7.7) Lymphocytes # (Auto) 2.2 x10^3/uL (1.0-4.8) Monocytes # (Auto) 1.3 x10^3/uL (0.0-1.1) Eosinophils # (Auto) 0.3 x10^3/uL (0.0-0.7) Basophils # (Auto) 0.0 x10^3/uL (0.0-0.2) Sodium Level 142 mmol/L (136-145) Potassium Level 3.9 mmol/L (3.5-5.1) Chloride Level 111 mmol/L (98-107) Carbon Dioxide Level 25 mmol/L (21-32) Anion Gap 6 (6-14) Blood Urea Nitrogen 17 mg/dL (7-20) Creatinine 0.5 mg/dL (0.6-1.0) Estimated GFR (Cockcroft-Gault) 122.0 Glucose Level 109 mg/dL (70-99) Calcium Level 7.2 mg/dL (8.5-10.1) Phosphorus Level 2.4 mg/dL (2.6-4.7) Albumin 1.5 g/dL (3.4-5.0) O2 Saturation 98 % (92-99) Arterial Blood pH 7.48 (7.35-7.45) Arterial Blood pCO2 at Patient Temp 29 mmHg (35-46) Arterial Blood pO2 at Patient Temp 131 mmHg (65-108) Arterial Blood HCO3 21 mmol/L (21-28) Arterial Blood Base Excess -2 mmol/L (-3-3) FiO2 35 Problem List Problems Medical Problems: (1) Hypotension Status: Acute Assessment/Plan supportive measures MARGARITO PECK APRN Mar 12, 2018 09:58
[2018-03-12 10:07] LABS: BASE EXCESS ABG -1 mmol/L (-3-3); HCO3 ABG 22 mmol/L (21-28); PCO2 ABG 29 mmHg (35-46); PO2 ABG 123 mmHg (65-108); SAT O2 ABG 99 % (92-99)
[2018-03-12 10:14] LABS: FIO2 ABG 35
[2018-03-12] MEDS: TPN PER PHARMACY MC PRN ×2 (10:59→11:04)
[2018-03-12] MEDS ORDERED: TPN PER PHARMACY MC PRN (11:00)
[2018-03-12] MEDS: CHLORHEXIDINE 0.12% 15 ML MOUTHWASH. MM SCH ×2 (11:19→21:12)
[2018-03-12] MEDS: PANTOPRAZOLE IV PUSH 40 MG VIAL. IVP SCH (11:19)
[2018-03-12] MEDS: POTASSIUM PHOSPHATE DIBASIC 13.6 MMOL in IV NORMAL SALINE 100ML 100 ML IV SCH ×3 (11:20→13:30)
--- NOTE | 2018-03-12 11:38 | PDOC ---
Objective: Objective: Per RN - did well on CPAP trial, opens eyes and blinks, no bleeding. Vital Signs: Vital Signs Date Time Temp Pulse Resp B/P (MAP) Pulse Ox O2 Delivery O2 Flow Rate FiO2 03/12/18 10:09 100 Ventilator 03/12/18 02:00 76 15 100/46 (64) 03/12/18 00:00 100.6 100.6 Labs: Laboratory Tests Test 03/12/18 05:30 03/12/18 08:45 03/12/18 10:00 White Blood Count 12.3 x10^3/uL Red Blood Count 3.52 x10^6/uL Hemoglobin 10.9 g/dL Hematocrit 31.6 % Mean Corpuscular Volume 90 fL Mean Corpuscular Hemoglobin 31 pg Mean Corpuscular Hemoglobin Concent 34 g/dL Red Cell Distribution Width 14.8 % Platelet Count 88 x10^3/uL Neutrophils (%) (Auto) 69 % Lymphocytes (%) (Auto) 18 % Monocytes (%) (Auto) 10 % Eosinophils (%) (Auto) 2 % Basophils (%) (Auto) 0 % Neutrophils # (Auto) 8.5 x10^3uL Lymphocytes # (Auto) 2.2 x10^3/uL Monocytes # (Auto) 1.3 x10^3/uL Eosinophils # (Auto) 0.3 x10^3/uL Basophils # (Auto) 0.0 x10^3/uL Sodium Level 142 mmol/L Potassium Level 3.9 mmol/L Chloride Level 111 mmol/L Carbon Dioxide Level 25 mmol/L Anion Gap 6 Blood Urea Nitrogen 17 mg/dL Creatinine 0.5 mg/dL Estimated GFR (Cockcroft-Gault) 122.0 Glucose Level 109 mg/dL Calcium Level 7.2 mg/dL Phosphorus Level 2.4 mg/dL Albumin 1.5 g/dL O2 Saturation 98 % 99 % Arterial Blood pH 7.48 7.49 Arterial Blood pCO2 at Patient Temp 29 mmHg 29 mmHg Arterial Blood pO2 at Patient Temp 131 mmHg 123 mmHg Arterial Blood HCO3 21 mmol/L 22 mmol/L Arterial Blood Base Excess -2 mmol/L -1 mmol/L FiO2 35 35 PE: GEN: intubated, OG LUNGS: vent HEART: RRR ABD: G tube, TERE site w/ ostomy bag/serosang NEURO/PSYCH: eyes flutter A/P: S/p splenectomy -- Supportive care. NASIR NGUYEN Mar 12, 2018 11:38
--- NOTE | 2018-03-12 12:45 | PDOC ---
PROGRESS NOTES Chief Complaint Chief Complaint Acute blood loss anemia - 2/2 gastric varices bleeding s/p Splenectomy, gastrotomy with control of varices, G-tube placement 03/08 and clots evacuation on 03/09 HCC - s/p surgical resection Hypotension - Hypokalemia - Hyperglycemia - Elevated INR better hypomagnesemia hypernatremia hypophosphatemia plan: fu with gi, sx talked to at bedside daily talked to ADVERTISING EDITOR,OFF PREssors REnal dced TPN, added ppn, and ivf bolus to replete the GORGE drain. watch BP, urine output ok for now. GORGE will be removed as per sx, still has lots of drain. protonix drip change to daily as per GI, dced octreotid as per gi gi ppx replete PHOk off sedation since 03/10 pm, eyes open. CPAP trial today, hope extubate soon. History of Present Illness History of Present Illness coming for hematemesis, and hematochezia EGD 03/08 wo active bleeding failed IR then sx Splenectomy, gastrotomy with control of varices, G-tube placement 03/08, blood clots evacuation 03/09 intubated, sedated regular diet ordered by Nurse for her 03/09: low BP ,still has dark bloody liquid from G tube significant amount, Na 153 03/10: off pressor, GORGE drain is less and mild bright red, hat body sorter than yesterday. Hb stable. Na 149. low urine output, got 500cc NS bolus last night. 03/11: BP lower to 90s, off pressor, GORGE still 2L per day, color pinkish, better. Hb 11. Na 146. off sedation since 03/10 pm, not waking up 03/12: wakes up today with blinking eyes, not follow commands. tolerate CPAP TRIAL. GORGE drain slightly better , 1L. Vitals Vitals Vital Signs Date Time Temp Pulse Resp B/P (MAP) Pulse Ox O2 Delivery O2 Flow Rate FiO2 03/12/18 11:47 100 Ventilator 03/12/18 02:00 76 15 100/46 (64) 03/12/18 00:00 100.6 100.6 Physical Exam Physical Exam intubated, sedated General: No acute distress Heart: Regular rate, Normal S1, Normal S2 Lungs: Clear Abdomen: Soft, Other ( gtube and gorge in place) Extremities: No clubbing, No cyanosis Skin: No rashes, No breakdown Labs LABS Laboratory Tests Test 03/12/18 05:30 03/12/18 08:45 03/12/18 10:00 White Blood Count 12.3 x10^3/uL (4.0-11.0) Red Blood Count 3.52 x10^6/uL (3.50-5.40) Hemoglobin 10.9 g/dL (12.0-15.5) Hematocrit 31.6 % (36.0-47.0) Mean Corpuscular Volume 90 fL (79-100) Mean Corpuscular Hemoglobin 31 pg (25-35) Mean Corpuscular Hemoglobin Concent 34 g/dL (31-37) Red Cell Distribution Width 14.8 % (11.5-14.5) Platelet Count 88 x10^3/uL (140-400) Neutrophils (%) (Auto) 69 % (31-73) Lymphocytes (%) (Auto) 18 % (24-48) Monocytes (%) (Auto) 10 % (0-9) Eosinophils (%) (Auto) 2 % (0-3) Basophils (%) (Auto) 0 % (0-3) Neutrophils # (Auto) 8.5 x10^3uL (1.8-7.7) Lymphocytes # (Auto) 2.2 x10^3/uL (1.0-4.8) Monocytes # (Auto) 1.3 x10^3/uL (0.0-1.1) Eosinophils # (Auto) 0.3 x10^3/uL (0.0-0.7) Basophils # (Auto) 0.0 x10^3/uL (0.0-0.2) Sodium Level 142 mmol/L (136-145) Potassium Level 3.9 mmol/L (3.5-5.1) Chloride Level 111 mmol/L (98-107) Carbon Dioxide Level 25 mmol/L (21-32) Anion Gap 6 (6-14) Blood Urea Nitrogen 17 mg/dL (7-20) Creatinine 0.5 mg/dL (0.6-1.0) Estimated GFR (Cockcroft-Gault) 122.0 Glucose Level 109 mg/dL (70-99) Calcium Level 7.2 mg/dL (8.5-10.1) Phosphorus Level 2.4 mg/dL (2.6-4.7) Albumin 1.5 g/dL (3.4-5.0) O2 Saturation 98 % (92-99) 99 % (92-99) Arterial Blood pH 7.48 (7.35-7.45) 7.49 (7.35-7.45) Arterial Blood pCO2 at Patient Temp 29 mmHg (35-46) 29 mmHg (35-46) Arterial Blood pO2 at Patient Temp 131 mmHg (65-108) 123 mmHg (65-108) Arterial Blood HCO3 21 mmol/L (21-28) 22 mmol/L (21-28) Arterial Blood Base Excess -2 mmol/L (-3-3) -1 mmol/L (-3-3) FiO2 35 35 Assessment and Plan Assessmemt and Plan Problems Medical Problems: (1) Hypotension Status: Acute Comment Review of Relevant I have reviewed the following items scottie (where applicable) has been applied. Labs Laboratory Tests Test 03/10/18 17:20 03/11/18 05:25 03/11/18 09:20 03/12/18 05:30 Hemoglobin 11.9 g/dL (12.0-15.5) 11.0 g/dL (12.0-15.5) 10.9 g/dL (12.0-15.5) Magnesium Level 2.2 mg/dL (1.8-2.4) 2.0 mg/dL (1.8-2.4) White Blood Count 13.3 x10^3/uL (4.0-11.0) 12.3 x10^3/uL (4.0-11.0) Red Blood Count 3.58 x10^6/uL (3.50-5.40) 3.52 x10^6/uL (3.50-5.40) Hematocrit 31.8 % (36.0-47.0) 31.6 % (36.0-47.0) Mean Corpuscular Volume 89 fL (79-100) 90 fL (79-100) Mean Corpuscular Hemoglobin 31 pg (25-35) 31 pg (25-35) Mean Corpuscular Hemoglobin Concent 35 g/dL (31-37) 34 g/dL (31-37) Red Cell Distribution Width 15.6 % (11.5-14.5) 14.8 % (11.5-14.5) Platelet Count 74 x10^3/uL (140-400) 88 x10^3/uL (140-400) Neutrophils (%) (Auto) 72 % (31-73) 69 % (31-73) Lymphocytes (%) (Auto) 16 % (24-48) 18 % (24-48) Monocytes (%) (Auto) 11 % (0-9) 10 % (0-9) Eosinophils (%) (Auto) 1 % (0-3) 2 % (0-3) Basophils (%) (Auto) 0 % (0-3) 0 % (0-3) Neutrophils # (Auto) 9.6 x10^3uL (1.8-7.7) 8.5 x10^3uL (1.8-7.7) Lymphocytes # (Auto) 2.1 x10^3/uL (1.0-4.8) 2.2 x10^3/uL (1.0-4.8) Monocytes # (Auto) 1.4 x10^3/uL (0.0-1.1) 1.3 x10^3/uL (0.0-1.1) Eosinophils # (Auto) 0.1 x10^3/uL (0.0-0.7) 0.3 x10^3/uL (0.0-0.7) Basophils # (Auto) 0.0 x10^3/uL (0.0-0.2) 0.0 x10^3/uL (0.0-0.2) Sodium Level 146 mmol/L (136-145) 142 mmol/L (136-145) Potassium Level 3.7 mmol/L (3.5-5.1) 3.9 mmol/L (3.5-5.1) Chloride Level 114 mmol/L (98-107) 111 mmol/L (98-107) Carbon Dioxide Level 26 mmol/L (21-32) 25 mmol/L (21-32) Anion Gap 6 (6-14) 6 (6-14) Blood Urea Nitrogen 25 mg/dL (7-20) 17 mg/dL (7-20) Creatinine 0.5 mg/dL (0.6-1.0) 0.5 mg/dL (0.6-1.0) Estimated GFR (Cockcroft-Gault) 122.0 122.0 Glucose Level 120 mg/dL (70-99) 109 mg/dL (70-99) Calcium Level 7.2 mg/dL (8.5-10.1) 7.2 mg/dL (8.5-10.1) Ionized Calcium 1.05 mmol/L (1.13-1.32) Phosphorus Level 2.0 mg/dL (2.6-4.7) 2.4 mg/dL (2.6-4.7) Albumin 1.6 g/dL (3.4-5.0) 1.5 g/dL (3.4-5.0) O2 Saturation 98 % (92-99) Arterial Blood pH 7.51 (7.35-7.45) Arterial Blood pCO2 at Patient Temp 30 mmHg (35-46) Arterial Blood pO2 at Patient Temp 109 mmHg (65-108) Arterial Blood HCO3 23 mmol/L (21-28) Arterial Blood Base Excess 1 mmol/L (-3-3) FiO2 35 Test 03/12/18 08:45 03/12/18 10:00 O2 Saturation 98 % (92-99) 99 % (92-99) Arterial Blood pH 7.48 (7.35-7.45) 7.49 (7.35-7.45) Arterial Blood pCO2 at Patient Temp 29 mmHg (35-46) 29 mmHg (35-46) Arterial Blood pO2 at Patient Temp 131 mmHg (65-108) 123 mmHg (65-108) Arterial Blood HCO3 21 mmol/L (21-28) 22 mmol/L (21-28) Arterial Blood Base Excess -2 mmol/L (-3-3) -1 mmol/L (-3-3) FiO2 35 35 Laboratory Tests Test 03/12/18 05:30 03/12/18 08:45 03/12/18 10:00 White Blood Count 12.3 x10^3/uL (4.0-11.0) Red Blood Count 3.52 x10^6/uL (3.50-5.40) Hemoglobin 10.9 g/dL (12.0-15.5) Hematocrit 31.6 % (36.0-47.0) Mean Corpuscular Volume 90 fL (79-100) Mean Corpuscular Hemoglobin 31 pg (25-35) Mean Corpuscular Hemoglobin Concent 34 g/dL (31-37) Red Cell Distribution Width 14.8 % (11.5-14.5) Platelet Count 88 x10^3/uL (140-400) Neutrophils (%) (Auto) 69 % (31-73) Lymphocytes (%) (Auto) 18 % (24-48) Monocytes (%) (Auto) 10 % (0-9) Eosinophils (%) (Auto) 2 % (0-3) Basophils (%) (Auto) 0 % (0-3) Neutrophils # (Auto) 8.5 x10^3uL (1.8-7.7) Lymphocytes # (Auto) 2.2 x10^3/uL (1.0-4.8) Monocytes # (Auto) 1.3 x10^3/uL (0.0-1.1) Eosinophils # (Auto) 0.3 x10^3/uL (0.0-0.7) Basophils # (Auto) 0.0 x10^3/uL (0.0-0.2) Sodium Level 142 mmol/L (136-145) Potassium Level 3.9 mmol/L (3.5-5.1) Chloride Level 111 mmol/L (98-107) Carbon Dioxide Level 25 mmol/L (21-32) Anion Gap 6 (6-14) Blood Urea Nitrogen 17 mg/dL (7-20) Creatinine 0.5 mg/dL (0.6-1.0) Estimated GFR (Cockcroft-Gault) 122.0 Glucose Level 109 mg/dL (70-99) Calcium Level 7.2 mg/dL (8.5-10.1) Phosphorus Level 2.4 mg/dL (2.6-4.7) Albumin 1.5 g/dL (3.4-5.0) O2 Saturation 98 % (92-99) 99 % (92-99) Arterial Blood pH 7.48 (7.35-7.45) 7.49 (7.35-7.45) Arterial Blood pCO2 at Patient Temp 29 mmHg (35-46) 29 mmHg (35-46) Arterial Blood pO2 at Patient Temp 131 mmHg (65-108) 123 mmHg (65-108) Arterial Blood HCO3 21 mmol/L (21-28) 22 mmol/L (21-28) Arterial Blood Base Excess -2 mmol/L (-3-3) -1 mmol/L (-3-3) FiO2 35 35 Microbiology 03/09/18 Urine Culture - Final, Complete 03/09/18 Urine Culture Result 1 (JEFFRY) - Final, Complete Medications Current Medications Sodium Chloride 500 ml @ 500 mls/hr Q1H IV Last administered on 03/07/18at 18: 29; Start 03/07/18 at 18:30; Stop 03/07/18 at 18:42; Status DC Pantoprazole Sodium (PROTONIX VIAL for IV PUSH) 80 mg 1X ONCE IVP Last administered on 03/07/18at 19:00; Start 03/07/18 at 18:30; Stop 03/07/18 at 18 :32; Status DC Octreotide Acetate 500 mcg/ Sodium Chloride 101 ml @ 5.05 mls/hr CONT PRN IV SEE I/O RECORD Last administered on 03/09/18at 10:38; Start 03/07/18 at 19:30; Stop 03/09/18 at 11:47; Status DC Ondansetron HCl (Zofran) 4 mg PRN Q8HRS PRN IV NAUSEA/VOMITING; Start at 19:15; Stop 03/08/18 at 19:14; Status DC Iohexol (Omnipaque 300 Mg/ml) 75 ml 1X ONCE IV Last administered on at 20:32; Start 03/07/18 at 19:15; Stop 03/07/18 at 19:16; Status DC Info (CONTRAST GIVEN -- Rx MONITORING) 1 each PRN DAILY PRN MC SEE COMMENTS; Start 03/07/18 at 19:15; Stop 03/09/18 at 19:14; Status DC Propofol 20 ml @ As Directed STK-MED ONCE IV ; Start 03/07/18 at 22:37; Stop 03/07/18 at 22:38; Status DC Pantoprazole Sodium 80 mg/ Sodium Chloride 100 ml @ 10 mls/hr Q10H IV Last administered on 03/10/18at 22:46; Start 03/07/18 at 23:00; Stop 03/11/18 at 11:10 ; Status DC Ringer's Solution 1,000 ml @ 200 mls/hr Q5H IV Last administered on at 20:41; Start 03/07/18 at 23:15; Stop 03/09/18 at 10:58; Status DC Dopamine HCl/ Dextrose 250 ml @ 4.461 mls/ hr CONT PRN IV SEE I/O RECORD; Start 03/08/18 at 09:30 Lidocaine/Sodium Bicarbonate (Buffered Lidocaine 1%) 3 ml STK-MED ONCE .ROUTE ; Start 03/08/18 at 11:47; Stop 03/08/18 at 11:48; Status DC Iohexol (Omnipaque 300 Mg/ml) 100 ml STK-MED ONCE .ROUTE ; Start 03/08/18 at 11 :47; Stop 03/08/18 at 11:48; Status DC Heparin Sodium/ Sodium Chloride 1,000 ml @ As Directed STK-MED ONCE .ROUTE ; Start 03/08/18 at 11:47; Stop 03/08/18 at 11:48; Status DC Midazolam HCl (Versed) 2 mg STK-MED ONCE .ROUTE ; Start 03/08/18 at 12:06; Stop 03/08/18 at 12:07; Status DC Fentanyl Citrate (Fentanyl 2ml Vial) 100 mcg STK-MED ONCE .ROUTE ; Start at 12:06; Stop 03/08/18 at 12:07; Status DC Heparin Sodium/ Sodium Chloride (HEPARIN for ARTERIAL LINE FLUSH) 1,000 unit 1X ONCE IART Last administered on 03/08/18at 12:30; Start 03/08/18 at 12:30; Stop 03/08/18 at 12:31; Status DC Lidocaine/Sodium Bicarbonate (Buffered Lidocaine 1%) 3 ml 1X ONCE IJ Last administered on 03/08/18at 12:15; Start 03/08/18 at 12:15; Stop 03/08/18 at 12 :21; Status DC Midazolam HCl (Versed) 2 mg 1X ONCE IV ; Start 03/08/18 at 12:15; Stop at 12:21; Status DC Fentanyl Citrate (Fentanyl 2ml Vial) 100 mcg 1X ONCE IV Last administered on 03/08/18at 12:15; Start 03/08/18 at 12:15; Stop 03/08/18 at 12:21; Status DC Iohexol (Omnipaque 300 Mg/ml) 100 ml 1X ONCE IART Last administered on at 12:15; Start 03/08/18 at 12:15; Stop 03/08/18 at 12:21; Status DC Phenylephrine HCl ([place]ander-Synephrine Inj) 10 mg STK-MED ONCE .ROUTE ; Start at 13:25; Stop 03/08/18 at 13:26; Status DC Succinylcholine Chloride ([place]) 200 mg STK-MED ONCE .ROUTE ; Start at 14:55; Stop 03/08/18 at 14:56; Status DC Propofol 20 ml @ As Directed STK-MED ONCE IV ; Start 03/08/18 at 14:55; Stop 03/08/18 at 14:56; Status DC Ketamine HCl (Ketamine) 50 mg STK-MED ONCE .ROUTE ; Start 03/08/18 at 14:55; Stop 03/08/18 at 14:57; Status DC Dexamethasone Sodium Phosphate (Decadron) 20 mg STK-MED ONCE .ROUTE ; Start at 14:56; Stop 03/08/18 at 14:58; Status DC Ondansetron HCl (Zofran) 4 mg STK-MED ONCE .ROUTE ; Start 03/08/18 at 14:57; Stop 03/08/18 at 14:58; Status DC Lidocaine HCl (Lidocaine Pf 2% Vial) 5 ml STK-MED ONCE .ROUTE ; Start 03/08/18 at 14:57; Stop 03/08/18 at 14:58; Status DC Propofol 20 ml @ As Directed STK-MED ONCE IV ; Start 03/08/18 at 14:57; Stop 03/08/18 at 14:58; Status DC Fentanyl Citrate (Fentanyl 5ml Vial) 250 mcg STK-MED ONCE .ROUTE ; Start at 15:54; Stop 03/08/18 at 15:55; Status DC Rocuronium [place] (Zemuron) 100 mg STK-MED ONCE .ROUTE ; Start 03/08/18 at 15: 55; Stop 03/08/18 at 15:57; Status DC Cefazolin Sodium 100 ml @ As Directed STK-MED ONCE IV ; Start 03/08/18 at 15: 57; Stop 03/08/18 at 15:59; Status DC Cellulose (Surgicel Hemostat 4x8) 1 each STK-MED ONCE .ROUTE Last administered on 03/08/18at 15:53; Start 03/08/18 at 16:27; Stop 03/08/18 at 16:28; Status DC Cellulose (Surgicel Hemostat 2x3) 1 each STK-MED ONCE .ROUTE Last administered on 03/08/18at 15:53; Start 03/08/18 at 16:42; Stop 03/08/18 at 16:44; Status DC Cellulose (Surgicel Hemostat 2x14) 1 each STK-MED ONCE .ROUTE ; Start 03/08/18 at 16:42; Stop 03/08/18 at 16:44; Status DC Cellulose (Surgicel Hemostat 4x8) 1 each STK-MED ONCE .ROUTE Last administered on 03/08/18at 15:53; Start 03/08/18 at 16:42; Stop 03/08/18 at 16:44; Status DC Calcium Chloride (Calcium Chloride) 1,000 mg STK-MED ONCE .ROUTE ; Start at 17:03; Stop 03/08/18 at 17:04; Status DC Calcium Chloride (Calcium Chloride) 1,000 mg STK-MED ONCE .ROUTE ; Start at 17:03; Stop 03/08/18 at 17:04; Status DC Sodium Bicarbonate (Sodium Bicarb Adult 8.4% Syr) 50 meq STK-MED ONCE .ROUTE ; Start 03/08/18 at 17:03; Stop 03/08/18 at 17:04; Status DC Sodium Bicarbonate (Sodium Bicarb Adult 8.4% Syr) 50 meq STK-MED ONCE .ROUTE ; Start 03/08/18 at 17:03; Stop 03/08/18 at 17:04; Status DC Epinephrine HCl (EPINEPHrine SYRINGE) 1 mg STK-MED ONCE .ROUTE ; Start at 17:03; Stop 03/08/18 at 17:04; Status DC Albumin Human 500 ml @ As Directed STK-MED ONCE IV ; Start 03/08/18 at 17:03; Stop 03/08/18 at 17:04; Status DC Sodium Bicarbonate (Sodium Bicarb Adult 8.4% Syr) 50 meq STK-MED ONCE .ROUTE ; Start 03/08/18 at 17:07; Stop 03/08/18 at 17:08; Status DC Sodium Bicarbonate (Sodium Bicarb Adult 8.4% Syr) 50 meq STK-MED ONCE .ROUTE ; Start 03/08/18 at 17:07; Stop 03/08/18 at 17:08; Status DC Cellulose (Surgicel Hemostat 4x8) 1 each STK-MED ONCE TP Last administered on 03/08/18at 15:53; Start 03/08/18 at 15:53; Stop 03/08/18 at 17:40; Status DC Sodium Bicarbonate (Sodium Bicarb Adult 8.4% Syr) 50 meq STK-MED ONCE .ROUTE ; Start 03/08/18 at 17:35; Stop 03/08/18 at 17:37; Status DC Calcium Chloride (Calcium Chloride) 1,000 mg STK-MED ONCE .ROUTE ; Start at 17:35; Stop 03/08/18 at 17:37; Status DC Albumin Human 500 ml @ As Directed STK-MED ONCE IV ; Start 03/08/18 at 17:41; Stop 03/08/18 at 17:43; Status DC Norepinephrine Bitartrate 250 ml @ 1.875 mls/ hr 1X ONCE IV Last administered on 03/08/18at 21:00; Start 03/08/18 at 17:45; Stop 03/09/18 at 08 :10; Status DC Vasopressin 40 unit/Dextrose 102 ml @ 6 mls/hr 1X ONCE IV Last administered on 03/08/18at 20:41; Start 03/08/18 at 18:00; Stop 03/09/18 at 10:59; Status DC Calcium Chloride (Calcium Chloride) 1,000 mg STK-MED ONCE .ROUTE ; Start at 17:57; Stop 03/08/18 at 17:59; Status DC Sodium Bicarbonate (Sodium Bicarb Adult 8.4% Syr) 50 meq STK-MED ONCE .ROUTE ; Start 03/08/18 at 18:04; Stop 03/08/18 at 18:06; Status DC Sodium Bicarbonate (Sodium Bicarb Adult 8.4% Syr) 50 meq STK-MED ONCE .ROUTE ; Start 03/08/18 at 18:05; Stop 03/08/18 at 18:06; Status DC Sodium Bicarbonate (Sodium Bicarb Adult 8.4% Syr) 50 meq STK-MED ONCE .ROUTE ; Start 03/08/18 at 18:07; Stop 03/08/18 at 18:08; Status DC Sodium Bicarbonate (Sodium Bicarb Adult 8.4% Syr) 50 meq STK-MED ONCE .ROUTE ; Start 03/08/18 at 18:07; Stop 03/08/18 at 18:08; Status DC Epinephrine HCl (EPINEPHrine SYRINGE) 1 mg STK-MED ONCE .ROUTE ; Start at 18:40; Stop 03/08/18 at 18:41; Status DC Prochlorperazine Edisylate (Compazine) 10 mg STK-MED ONCE .ROUTE ; Start at 18:42; Stop 03/08/18 at 18:44; Status DC Fentanyl Citrate (Fentanyl 2ml Vial) 100 mcg STK-MED ONCE .ROUTE ; Start at 18:43; Stop 03/08/18 at 18:44; Status DC Sevoflurane (Ultane) 90 ml STK-MED ONCE IH ; Start 03/08/18 at 18:48; Stop at 18:49; Status DC Cellulose (Surgicel Hemostat 2x3) 1 each STK-MED ONCE TP Last administered on 03/08/18at 15:55; Start 03/08/18 at 15:55; Stop 03/08/18 at 19:04; Status DC Cellulose (Surgicel Hemostat 2x3) 1 each STK-MED ONCE TP Last administered on 03/08/18at 15:53; Start 03/08/18 at 15:53; Stop 03/08/18 at 19:04; Status DC Propofol 100 ml @ As Directed STK-MED ONCE IV ; Start 03/08/18 at 19:56; Stop 03/08/18 at 19:58; Status DC Famotidine (Pepcid) 20 mg BID PO ; Start 03/08/18 at 21:00; Stop 03/09/18 at 08:11; Status DC Sodium Chloride (Normal Saline Flush) 3 ml QSHIFT PRN IV AFTER MEDS AND BLOOD DRAWS; Start 03/08/18 at 20:45; Status Cancel Morphine Sulfate (Morphine Sulfate) 1 mg PRN Q1HR PRN IV PAIN Last administered on 03/08/18at 21:12; Start 03/08/18 at 20:45; Stop 03/10/18 at 18: 45; Status DC Ondansetron HCl (Zofran) 4 mg PRN Q6HRS PRN IV NAUESA, 1ST CHOICE; Start 03/08 at 20:45 Fentanyl Citrate 30 ml @ 0 mls/hr CONT PRN IV SEE PROTOCOL Last administered on 03/09/18at 23:16; Start 03/08/18 at 22:15 Fentanyl Citrate (Fentanyl 2ml Vial) 25 mcg PRN Q1HR PRN IV SEE COMMENTS; Start 03/08/18 at 22:15; Stop 03/10/18 at 18:45; Status DC Fentanyl Citrate (Fentanyl 2ml Vial) 50 mcg PRN Q1HR PRN IV SEE COMMENTS Last administered on 03/08/18at 22:41; Start 03/08/18 at 22:15 Chlorhexidine Gluconate (Peridex) 15 ml BID MM Last administered on 03/12/18at 11 :19; Start 03/09/18 at 09:00 Midazolam HCl 100 ml @ 0 mls/hr CONT PRN IV SEE PROTOCOL Last administered on 03/09/18at 21:43; Start 03/08/18 at 22:15; Stop 03/10/18 at 18:45; Status DC Factor IX (Pha) (Novoseven Rt) 1 mg 1X ONCE IV Last administered on at 01:09; Start 03/09/18 at 01:00; Stop 03/09/18 at 01:01; Status DC Lorazepam (Ativan) 2 mg STK-MED ONCE .ROUTE ; Start 03/09/18 at 01:15; Stop at 01:16; Status DC Norepinephrine Bitartrate 250 ml @ 1.875 mls/ hr CONT PRN IV SEE I/O RECORD Last administered on 03/09/18at 17:41; Start 03/09/18 at 01:45 Cefazolin Sodium/ Dextrose 50 ml @ 100 mls/hr 1X PREOP PRN IV PRIOR TO PROCEDURE Last administered on 03/09/18at 02:00; Start 03/09/18 at 02:00; Stop 03/10/18 at 01:59; Status DC Rocuronium [place] (Zemuron) 100 mg STK-MED ONCE .ROUTE ; Start 03/09/18 at 01: 57; Stop 03/09/18 at 01:59; Status DC Fentanyl Citrate (Fentanyl 5ml Vial) 250 mcg STK-MED ONCE .ROUTE ; Start at 02:13; Stop 03/09/18 at 02:14; Status DC Cellulose (Surgicel Hemostat 2x3) 1 each STK-MED ONCE .ROUTE ; Start 03/09/18 at 02:23; Stop 03/09/18 at 02:25; Status DC Cellulose (Surgicel Hemostat 2x14) 1 each STK-MED ONCE .ROUTE ; Start 03/09/18 at 02:23; Stop 03/09/18 at 02:25; Status DC Cellulose (Surgicel Hemostat 4x8) 1 each STK-MED ONCE .ROUTE Last administered on 03/09/18at 02:04; Start 03/09/18 at 02:23; Stop 03/09/18 at 02:25; Status DC Sodium Chloride (Normal Saline Flush) 3 ml QSHIFT PRN IV AFTER MEDS AND BLOOD DRAWS; Start 03/09/18 at 03:30 Cellulose (Surgicel Hemostat 4x8) 1 each STK-MED ONCE TP Last administered on 03/09/18at 02:04; Start 03/09/18 at 02:04; Stop 03/09/18 at 03:20; Status DC Cellulose (Surgicel Hemostat 4x8) 1 each STK-MED ONCE TP Last administered on 03/09/18at 02:04; Start 03/09/18 at 02:04; Stop 03/09/18 at 03:20; Status DC Sodium Bicarbonate (Sodium Bicarb Adult 8.4% Syr) 150 meq STK-MED ONCE .ROUTE ; Start 03/08/18 at 10:00; Stop 03/09/18 at 10:30; Status DC Dopamine HCl/ Dextrose (DOPamine 400MG/ 250ML PREMIX) 400 mg STK-MED ONCE IV ; Start 03/08/18 at 10:00; Stop 03/09/18 at 10:30; Status DC Potassium Chloride/Dextrose 1,000 ml @ 100 mls/hr Q10H IV Last administered on 03/09/18at 11:22; Start 03/09/18 at 11:00; Stop 03/09/18 at 20:59; Status DC Magnesium Sulfate/ Dextrose 100 ml @ 25 mls/hr 1X ONCE IV Last administered on 03/09/18at 13:45; Start 03/09/18 at 12:45; Stop 03/09/18 at 16:44; Status DC Potassium Chloride/Water 50 ml @ 50 mls/hr 1X ONCE IV Last administered on at 13:43; Start 03/09/18 at 12:45; Stop 03/09/18 at 13:44; Status DC Magnesium Sulfate 50 ml @ 25 mls/hr PRN DAILY PRN IV for Mag < 1.7 on am labs Last administered on 03/10/18at 06:17; Start 03/09/18 at 13:45 Sodium Chloride 500 ml @ 500 mls/hr QIDPRN PRN IV U/O <30 cc/hr Last administered on 03/10/18at 09:00; Start 03/09/18 at 19:45 Info (Tpn Per Pharmacy) 1 each PRN DAILY PRN MC SEE COMMENTS; Start 03/10/18 at 09:00; Stop 03/10/18 at 12:42; Status DC Potassium Phosphate 13.6 mmol/Dextrose 104.5333 ml @ 52.267 m... Q2H IV Last administered on 03/10/18at 10:34; Start 03/10/18 at 10:00; Stop 03/10/18 at 11:59; Status DC Amino Acids/ Glycerin/ Electrolytes 1,000 ml @ 100 mls/hr Q10H IV Last administered on 03/11/18at 21:42; Start 03/10/18 at 13:00; Stop 03/12/18 at 21:59 Ringer's Solution 500 ml @ 500 mls/hr 1X ONCE IV Last administered on at 18:55; Start 03/10/18 at 19:45; Stop 03/10/18 at 20:44; Status DC Dextrose (Dextrose 50%-Water Syringe) 12.5 gm PRN Q15MIN PRN IV SEE COMMENTS; Start 03/11/18 at 07:00 Ringer's Solution 500 ml @ 500 mls/hr Q1H PRN IV FLUID LOSS; Start 03/11/18 at 07:00 Pantoprazole Sodium (PROTONIX VIAL for IV PUSH) 40 mg DAILY IVP Last administered on 03/12/18at 11:19; Start 03/12/18 at 09:00 Potassium Phosphate 13.6 mmol/Dextrose 104.5333 ml @ 52.267 m... Q2H IV Last administered on 03/11/18at 21:42; Start 03/11/18 at 14:00; Stop 03/11/18 at 19:59; Status DC Info (Tpn Per Pharmacy) 1 each PRN DAILY PRN MC SEE COMMENTS Last administered on 03/12/18at 11:04; Start 03/12/18 at 09:30 Potassium Phosphate 13.6 mmol/Sodium Chloride 104.5333 ml @ 52.267 m... Q2H IV Last administered on 03/12/18at 11:20; Start 03/12/18 at 09:30; Stop 03/12/18 at 15:29 Albumin Human 100 ml @ 100 mls/hr TID IV ; Start 03/12/18 at 14:00; Stop at 09:59 Info (Tpn Per Pharmacy) 1 each PRN DAILY PRN MC SEE COMMENTS; Start 03/12/18 at 11:00; Status UNV Sodium Acetate 90 meq/Potassium Chloride 50 meq/ Potassium Phosphate 13.6 mmol/ Magnesium Sulfate 10 meq/ Calcium Gluconate 10 meq/ Multivitamins 10 ml/Chromium / Copper/Manganese/ Seleni/Zn 1 ml/ Total Parenteral Nutrition/Amino Acids/ Dextrose/ Fat Emulsion Intravenous 1,512 ml @ 63 mls/hr TPN CONT IV ; Start at 22:00; Stop 03/12/18 at 22:00; Status DC Sodium Acetate 60 meq/Potassium Chloride 50 meq/ Potassium Phosphate 13.6 mmol/ Magnesium Sulfate 10 meq/ Calcium Gluconate 10 meq/ Multivitamins 10 ml/Chromium / Copper/Manganese/ Seleni/Zn 1 ml/ Total Parenteral Nutrition/Amino Acids/ Dextrose/ Fat Emulsion Intravenous 1,512 ml @ 63 mls/hr TPN CONT IV ; Start at 22:00 Active Scripts Active Reported Prilosec Otc (Omeprazole Magnesium) 20 Mg Tablet. 1 Tab PO DAILY Simvastatin 20 Mg Tablet 1 Tab PO QHS Vitals/I & O Vital Sign - Last 24 Hours 03/11/18 03/11/18 03/11/18 03/11/18 13:00 14:00 15:00 15:20 Pulse 74 72 76 Resp 15 14 13 B/P (MAP) 103/54 (70) 106/53 (70) 109/49 (69) Pulse Ox 100 100 100 100 O2 Delivery Ventilator Ventilator Ventilator Ventilator 03/11/18 03/11/18 03/11/18 03/11/18 16:00 16:00 17:00 17:30 Temp 98.6 98.6 Pulse 74 76 Resp 14 15 B/P (MAP) 99/48 (65) 105/51 (69) Pulse Ox 100 100 100 O2 Delivery Mechanical Ventilator Ventilator Ventilator Ventilator 03/11/18 03/11/18 03/11/18 03/11/18 18:00 19:00 19:46 20:00 Pulse 78 76 Resp 20 15 B/P (MAP) 105/56 (72) 92/56 (68) Pulse Ox 100 100 100 O2 Delivery Ventilator Ventilator Ventilator Mechanical Ventilator 03/11/18 03/11/18 03/11/18 03/11/18 20:00 21:00 21:22 22:00 Temp 98.8 98.8 Pulse 92 82 80 Resp 21 15 15 B/P (MAP) 130/65 (86) 105/48 (67) 95/43 (60) Pulse Ox 100 100 100 100 O2 Delivery Ventilator Ventilator Ventilator Ventilator 03/11/18 03/11/18 03/11/18 03/12/18 23:00 23:15 23:59 00:00 Temp 100.6 100.6 Pulse 82 80 Resp 14 15 B/P (MAP) 100/43 (62) 97/42 (60) Pulse Ox 100 100 100 O2 Delivery Ventilator Ventilator Mechanical Ventilator Ventilator 03/12/18 03/12/18 03/12/18 03/12/18 01:00 01:38 02:00 03:22 Pulse 76 76 Resp 16 15 B/P (MAP) 108/56 (73) 100/46 (64) Pulse Ox 100 100 99 100 O2 Delivery Ventilator Ventilator Ventilator Ventilator 03/12/18 03/12/18 03/12/18 03/12/18 04:00 04:42 07:50 08:55 Pulse Ox 100 100 100 O2 Delivery Mechanical Ventilator Ventilator Ventilator 03/12/18 03/12/18 10:09 11:47 Pulse Ox 100 100 O2 Delivery Ventilator Ventilator Intake and Output 03/11/18 03/11/18 03/12/18 15:01 23:01 07:01 Intake Total 557 ml 1470 ml 940 ml Output Total 725 ml 800 ml 610 ml Balance -168 ml 670 ml 330 ml MIKE RAY MD Mar 12, 2018 12:45
[2018-03-12] MEDS: ALBUMIN HUMAN 25% 100 ML IV SCH ×2 (14:00→21:12)
--- NOTE | 2018-03-12 14:30 | NUR ---
Pharmacy TPN Dosing Note S: CARLA ESPINOZA is a 72 year old F Currently receiving Central Continuous TPN started 03/12/18 B:Pertinent PMH: HEPATIC CARCINOMA, MALNUTRITION Height: 5 feet, 4 inches Weight: 67.007393 kg Current diet: PPN LABS: Sodium: 142 Potassium: 3.9 Chloride: 114 Calcium: 7.2 Corrected Calcium: 9.20 Magnesium: 2.0 CO2: 26 SCr: 0.5 Glucose: 109 Albumin: 1.5 AST: ALT: TPN FORMULA: TPN TYPE: Central Continuous AMINO ACIDS: 70 gm DEXTROSE: 195 gm LIPIDS: 20 gm SODIUM CHLORIDE: mEq SODIUM ACETATE: 60 mEq SODIUM PHOSPHATE: mmol POTASSIUM CHLORIDE: 50 mEq POTASSIUM ACETATE: mEq POTASSIUM PHOSPHATE: 13.6 mmol MAGNESIUM: 10 mEq CALCIUM: 10 mEq INSULIN: units MULTIPLE VITAMIN: 10 ml TRACE ELEMENTS: 1 ml(s) TPN PLAN: CHANGE NACL TO NAACETATE SINCE CL LEVEL IS HIGH. R: Begin HOUSE TPN AT 63ML/HR Will monitor electrolytes, glucose, and tolerance to TPN. MARITZA PARRA [facility], 03/12/18 1433
--- NOTE | 2018-03-12 15:58 | RAD ---
EXAM: Chest, single view. HISTORY: Intubation. COMPARISON: 03/10/2018 FINDINGS: A frontal view of the chest is obtained. There is an endotracheal tube within the distal trachea, with the tip approximately 1.3 cm proximal to the gray. There is a nasogastric tube within the proximal stomach with the side-port at the gastroesophageal junction. There is a right internal jugular catheter with the tip in the superior vena cava. There is a suspected small left pleural effusion with left lower lobe atelectasis or infiltrate. There is no pneumothorax. The heart is normal in size. IMPRESSION: 1. Support lines and tubes, described above. Note is made that the nasogastric tube side-port overlies expected location of the gastroesophageal junction an endotracheal tube tip is 1.3 cm proximal to the gray.. 2. Suspected small left pleural effusion and left lower lobe atelectasis or infiltrate. Electronically signed by: Rosita Tamayo MD (03/12/2018 3:54 PM) [id number]
[2018-03-12] MEDS ORDERED: [UNRECOGNIZED DRUG - OTHER] IV SCH ×10 (22:00)
[2018-03-12] MEDS ORDERED: [UNRECOGNIZED DRUG - OTHER] IV SCH ×10 (22:00)
[2018-03-12] MEDS ORDERED: DEXTROSE 70% IV SCH ×20 (22:00)
[2018-03-12] MEDS ORDERED: AMINO ACID IV SCH ×20 (22:00)
[2018-03-12] MEDS ORDERED: TOTAL PARENTERAL NUTRITION IV SCH ×20 (22:00)
[2018-03-13] VITALS (24 sets, daily range): BP systolic 107–144; BP diastolic 50–80
[2018-03-13 06:10] LABS: ALBUMIN 1.9 g/dL (3.4-5.0); CALCIUM 7.8 mg/dL (8.5-10.1); CREATININE 0.4 mg/dL (0.6-1.0); GFR 157.8; PHOSPHORUS 2.2 mg/dL (2.6-4.7); POTASSIUM 3.8 mmol/L (3.5-5.1)
[2018-03-13 08:39] LABS: BASE EXCESS ABG -1 mmol/L (-3-3); HCO3 ABG 22 mmol/L (21-28); PCO2 ABG 29 mmHg (35-46); PO2 ABG 111 mmHg (65-108); SAT O2 ABG 98 % (92-99)
[2018-03-13 08:55] LABS: FIO2 ABG 35
[2018-03-13] MEDS: CHLORHEXIDINE 0.12% 15 ML MOUTHWASH. MM SCH (09:00)
[2018-03-13] MEDS: PANTOPRAZOLE IV PUSH 40 MG VIAL. IVP SCH (09:00)
[2018-03-13] MEDS: ALBUMIN HUMAN 25% 100 ML IV SCH ×3 (09:00→21:15)
[2018-03-13] MEDS ORDERED: MAGNESIUM SULFATE 2GM 50 ML IV ONE (09:30)
--- NOTE | 2018-03-13 09:41 | PDOC ---
PULMONARY PROGRESS NOTES Subjective OFF SEDATION ON PS PT TODAY FOLLOWING COMMANDS Vitals Vital Signs Date Time Temp Pulse Resp B/P (MAP) Pulse Ox O2 Delivery O2 Flow Rate FiO2 03/13/18 08:27 100 Ventilator 03/13/18 06:00 82 17 119/64 (82) 03/13/18 04:00 99.9 99.9 Lungs: Clear Cardiovascular: S1, S2 Abdomen: Soft Skin: Warm, Dry Labs Laboratory Tests Test 03/12/18 05:30 03/12/18 08:45 03/12/18 10:00 03/13/18 05:30 White Blood Count 12.3 x10^3/uL (4.0-11.0) Red Blood Count 3.52 x10^6/uL (3.50-5.40) Hemoglobin 10.9 g/dL (12.0-15.5) Hematocrit 31.6 % (36.0-47.0) Mean Corpuscular Volume 90 fL (79-100) Mean Corpuscular Hemoglobin 31 pg (25-35) Mean Corpuscular Hemoglobin Concent 34 g/dL (31-37) Red Cell Distribution Width 14.8 % (11.5-14.5) Platelet Count 88 x10^3/uL (140-400) Neutrophils (%) (Auto) 69 % (31-73) Lymphocytes (%) (Auto) 18 % (24-48) Monocytes (%) (Auto) 10 % (0-9) Eosinophils (%) (Auto) 2 % (0-3) Basophils (%) (Auto) 0 % (0-3) Neutrophils # (Auto) 8.5 x10^3uL (1.8-7.7) Lymphocytes # (Auto) 2.2 x10^3/uL (1.0-4.8) Monocytes # (Auto) 1.3 x10^3/uL (0.0-1.1) Eosinophils # (Auto) 0.3 x10^3/uL (0.0-0.7) Basophils # (Auto) 0.0 x10^3/uL (0.0-0.2) Sodium Level 142 mmol/L (136-145) 139 mmol/L (136-145) Potassium Level 3.9 mmol/L (3.5-5.1) 3.8 mmol/L (3.5-5.1) Chloride Level 111 mmol/L (98-107) 109 mmol/L (98-107) Carbon Dioxide Level 25 mmol/L (21-32) 23 mmol/L (21-32) Anion Gap 6 (6-14) 7 (6-14) Blood Urea Nitrogen 17 mg/dL (7-20) 11 mg/dL (7-20) Creatinine 0.5 mg/dL (0.6-1.0) 0.4 mg/dL (0.6-1.0) Estimated GFR (Cockcroft-Gault) 122.0 157.8 Glucose Level 109 mg/dL (70-99) 157 mg/dL (70-99) Calcium Level 7.2 mg/dL (8.5-10.1) 7.8 mg/dL (8.5-10.1) Phosphorus Level 2.4 mg/dL (2.6-4.7) 2.2 mg/dL (2.6-4.7) Albumin 1.5 g/dL (3.4-5.0) 1.9 g/dL (3.4-5.0) O2 Saturation 98 % (92-99) 99 % (92-99) Arterial Blood pH 7.48 (7.35-7.45) 7.49 (7.35-7.45) Arterial Blood pCO2 at Patient Temp 29 mmHg (35-46) 29 mmHg (35-46) Arterial Blood pO2 at Patient Temp 131 mmHg (65-108) 123 mmHg (65-108) Arterial Blood HCO3 21 mmol/L (21-28) 22 mmol/L (21-28) Arterial Blood Base Excess -2 mmol/L (-3-3) -1 mmol/L (-3-3) FiO2 35 35 Magnesium Level 1.7 mg/dL (1.8-2.4) Test 03/13/18 08:00 O2 Saturation 98 % (92-99) Arterial Blood pH 7.49 (7.35-7.45) Arterial Blood pCO2 at Patient Temp 29 mmHg (35-46) Arterial Blood pO2 at Patient Temp 111 mmHg (65-108) Arterial Blood HCO3 22 mmol/L (21-28) Arterial Blood Base Excess -1 mmol/L (-3-3) FiO2 35 Laboratory Tests Test 03/12/18 10:00 03/13/18 05:30 03/13/18 08:00 O2 Saturation 99 % (92-99) 98 % (92-99) Arterial Blood pH 7.49 (7.35-7.45) 7.49 (7.35-7.45) Arterial Blood pCO2 at Patient Temp 29 mmHg (35-46) 29 mmHg (35-46) Arterial Blood pO2 at Patient Temp 123 mmHg (65-108) 111 mmHg (65-108) Arterial Blood HCO3 22 mmol/L (21-28) 22 mmol/L (21-28) Arterial Blood Base Excess -1 mmol/L (-3-3) -1 mmol/L (-3-3) FiO2 35 35 Sodium Level 139 mmol/L (136-145) Potassium Level 3.8 mmol/L (3.5-5.1) Chloride Level 109 mmol/L (98-107) Carbon Dioxide Level 23 mmol/L (21-32) Anion Gap 7 (6-14) Blood Urea Nitrogen 11 mg/dL (7-20) Creatinine 0.4 mg/dL (0.6-1.0) Estimated GFR (Cockcroft-Gault) 157.8 Glucose Level 157 mg/dL (70-99) Calcium Level 7.8 mg/dL (8.5-10.1) Phosphorus Level 2.2 mg/dL (2.6-4.7) Magnesium Level 1.7 mg/dL (1.8-2.4) Albumin 1.9 g/dL (3.4-5.0) Medications Active Scripts Medications Dose Route/Sig Max Daily Dose Days Date Category Prilosec Otc (Omeprazole Magnesium) 20 Mg Tablet.dr 1 Tab PO DAILY 03/07/18 Reported Simvastatin 20 Mg Tablet 1 Tab PO QHS 03/07/18 Reported Impression . 1. respiratory failure Expected post-op multifactorial EXTUBATED 03/13 2. GI bleed stabilized 3. cirrhosis 4. hx resected hepatocellular carcinoma 5. ENCEPHALOPATHY SUSPECT METABOLIC Plan . FOLLOWING COMMANDS ON PS 5 DID WELL WILL EXTUBATE NG TUBE PER GI CONTINUE SUPPORT NPO CORINA ROBERSON MD Mar 13, 2018 09:41
[2018-03-13 09:45] LABS: BASE EXCESS ABG -3 mmol/L (-3-3); HCO3 ABG 19 mmol/L (21-28); PCO2 ABG 26 mmHg (35-46); PO2 ABG 107 mmHg (65-108); SAT O2 ABG 98 % (92-99)
[2018-03-13 09:59] LABS: FIO2 ABG 35
--- NOTE | 2018-03-13 11:13 | PDOC ---
Objective: Objective: Pt seen earlier this morning - possible extubation today per RN, no new GI concerns. Vital Signs: Vital Signs Date Time Temp Pulse Resp B/P (MAP) Pulse Ox O2 Delivery O2 Flow Rate FiO2 03/13/18 10:23 100 Ventilator 03/13/18 10:00 78 12 141/64 (89) 03/13/18 08:00 98.3 98.3 PE: GEN: intubated HEENT: OG tube LUNGS: vent ABD: non-tender, G tube, TERE site w/ ostomy bag NEURO/PSYCH: awake, nods and shakes head A/P: S/p splenectomy H/o HCC -- Plans to extubate, will follow. NASIR NGUYEN Mar 13, 2018 11:13
[2018-03-13] MEDS ORDERED: RACEPINEPHRINE 2.25% 0.5 ML NEBU. NEB ONE (11:30)
--- NOTE | 2018-03-13 12:31 | PDOC ---
PROGRESS NOTES Chief Complaint Chief Complaint Acute blood loss anemia - 2/2 gastric varices bleeding s/p Splenectomy, gastrotomy with control of varices, G-tube placement 03/08 and clots evacuation on 03/09 HCC - s/p surgical resection Hypotension - Hypokalemia - Hyperglycemia - Elevated INR better hypomagnesemia hypernatremia hypophosphatemia plan: fu with gi, sx talked to at bedside daily talked to SCRIPT ARTIST,OFF PREssors back to TPN, also on ivf as per renal. and ivf bolus to replete the GORGE drain. watch BP, urine output ok for now. GORGE will be removed as per sx, still has lots of drain. protonix drip change to daily as per GI, dced octreotid as per gi gi ppx replete PHOk off sedation since 03/10 pm, eyes open. CPAP trial well since 03/12 , hope extubate soon replete Phok, mag. low grad T AND high wbc daily, hope the abd drain is better and no accumulation or infection in abd. will check CT abd to rule out abscess. History of Present Illness History of Present Illness coming for hematemesis, and hematochezia EGD 03/08 wo active bleeding failed IR then sx Splenectomy, gastrotomy with control of varices, G-tube placement 03/08, blood clots evacuation 03/09 intubated, sedated regular diet ordered by Nurse for her 03/09: low BP ,still has dark bloody liquid from G tube significant amount, Na 153 03/10: off pressor, GORGE drain is less and mild bright red, fan blade truer than yesterday. Hb stable. Na 149. low urine output, got 500cc NS bolus last night. 1: BP lower to 90s, off pressor, GORGE still 2L per day, color pinkish, better. Hb 11. Na 146. off sedation since 03/10 pm, not waking up 03/12: wakes up today with blinking eyes, not follow commands. tolerate CPAP TRIAL. GORGE drain slightly better , 1L. 03/13: still significant output from the previous GORGE drain which was removed yesterday. more awake. TPN. low grade T daily. Vitals Vitals Vital Signs Date Time Temp Pulse Resp B/P (MAP) Pulse Ox O2 Delivery O2 Flow Rate FiO2 03/13/18 11:31 98 Nasal Cannula 2.0 03/13/18 10:00 78 12 141/64 (89) 03/13/18 08:00 98.3 98.3 Physical Exam Physical Exam intubated, sedated General: No acute distress Heart: Regular rate, Normal S1, Normal S2 Lungs: Clear Abdomen: Soft, Other ( gtube and gorge in place) Extremities: No clubbing, No cyanosis Skin: No rashes, No breakdown Labs LABS Laboratory Tests Test 03/13/18 05:30 03/13/18 08:00 03/13/18 09:25 Sodium Level 139 mmol/L (136-145) Potassium Level 3.8 mmol/L (3.5-5.1) Chloride Level 109 mmol/L (98-107) Carbon Dioxide Level 23 mmol/L (21-32) Anion Gap 7 (6-14) Blood Urea Nitrogen 11 mg/dL (7-20) Creatinine 0.4 mg/dL (0.6-1.0) Estimated GFR (Cockcroft-Gault) 157.8 Glucose Level 157 mg/dL (70-99) Calcium Level 7.8 mg/dL (8.5-10.1) Phosphorus Level 2.2 mg/dL (2.6-4.7) Magnesium Level 1.7 mg/dL (1.8-2.4) Albumin 1.9 g/dL (3.4-5.0) O2 Saturation 98 % (92-99) 98 % (92-99) Arterial Blood pH 7.49 (7.35-7.45) 7.49 (7.35-7.45) Arterial Blood pCO2 at Patient Temp 29 mmHg (35-46) 26 mmHg (35-46) Arterial Blood pO2 at Patient Temp 111 mmHg (65-108) 107 mmHg (65-108) Arterial Blood HCO3 22 mmol/L (21-28) 19 mmol/L (21-28) Arterial Blood Base Excess -1 mmol/L (-3-3) -3 mmol/L (-3-3) FiO2 35 35 Assessment and Plan Assessmemt and Plan Problems Medical Problems: (1) Hypotension Status: Acute Comment Review of Relevant I have reviewed the following items scottie (where applicable) has been applied. Labs Laboratory Tests Test 03/12/18 05:30 03/12/18 08:45 03/12/18 10:00 03/13/18 05:30 White Blood Count 12.3 x10^3/uL (4.0-11.0) Red Blood Count 3.52 x10^6/uL (3.50-5.40) Hemoglobin 10.9 g/dL (12.0-15.5) Hematocrit 31.6 % (36.0-47.0) Mean Corpuscular Volume 90 fL (79-100) Mean Corpuscular Hemoglobin 31 pg (25-35) Mean Corpuscular Hemoglobin Concent 34 g/dL (31-37) Red Cell Distribution Width 14.8 % (11.5-14.5) Platelet Count 88 x10^3/uL (140-400) Neutrophils (%) (Auto) 69 % (31-73) Lymphocytes (%) (Auto) 18 % (24-48) Monocytes (%) (Auto) 10 % (0-9) Eosinophils (%) (Auto) 2 % (0-3) Basophils (%) (Auto) 0 % (0-3) Neutrophils # (Auto) 8.5 x10^3uL (1.8-7.7) Lymphocytes # (Auto) 2.2 x10^3/uL (1.0-4.8) Monocytes # (Auto) 1.3 x10^3/uL (0.0-1.1) Eosinophils # (Auto) 0.3 x10^3/uL (0.0-0.7) Basophils # (Auto) 0.0 x10^3/uL (0.0-0.2) Sodium Level 142 mmol/L (136-145) 139 mmol/L (136-145) Potassium Level 3.9 mmol/L (3.5-5.1) 3.8 mmol/L (3.5-5.1) Chloride Level 111 mmol/L (98-107) 109 mmol/L (98-107) Carbon Dioxide Level 25 mmol/L (21-32) 23 mmol/L (21-32) Anion Gap 6 (6-14) 7 (6-14) Blood Urea Nitrogen 17 mg/dL (7-20) 11 mg/dL (7-20) Creatinine 0.5 mg/dL (0.6-1.0) 0.4 mg/dL (0.6-1.0) Estimated GFR (Cockcroft-Gault) 122.0 157.8 Glucose Level 109 mg/dL (70-99) 157 mg/dL (70-99) Calcium Level 7.2 mg/dL (8.5-10.1) 7.8 mg/dL (8.5-10.1) Phosphorus Level 2.4 mg/dL (2.6-4.7) 2.2 mg/dL (2.6-4.7) Albumin 1.5 g/dL (3.4-5.0) 1.9 g/dL (3.4-5.0) O2 Saturation 98 % (92-99) 99 % (92-99) Arterial Blood pH 7.48 (7.35-7.45) 7.49 (7.35-7.45) Arterial Blood pCO2 at Patient Temp 29 mmHg (35-46) 29 mmHg (35-46) Arterial Blood pO2 at Patient Temp 131 mmHg (65-108) 123 mmHg (65-108) Arterial Blood HCO3 21 mmol/L (21-28) 22 mmol/L (21-28) Arterial Blood Base Excess -2 mmol/L (-3-3) -1 mmol/L (-3-3) FiO2 35 35 Magnesium Level 1.7 mg/dL (1.8-2.4) Test 03/13/18 08:00 03/13/18 09:25 O2 Saturation 98 % (92-99) 98 % (92-99) Arterial Blood pH 7.49 (7.35-7.45) 7.49 (7.35-7.45) Arterial Blood pCO2 at Patient Temp 29 mmHg (35-46) 26 mmHg (35-46) Arterial Blood pO2 at Patient Temp 111 mmHg (65-108) 107 mmHg (65-108) Arterial Blood HCO3 22 mmol/L (21-28) 19 mmol/L (21-28) Arterial Blood Base Excess -1 mmol/L (-3-3) -3 mmol/L (-3-3) FiO2 35 35 Laboratory Tests Test 03/13/18 05:30 03/13/18 08:00 03/13/18 09:25 Sodium Level 139 mmol/L (136-145) Potassium Level 3.8 mmol/L (3.5-5.1) Chloride Level 109 mmol/L (98-107) Carbon Dioxide Level 23 mmol/L (21-32) Anion Gap 7 (6-14) Blood Urea Nitrogen 11 mg/dL (7-20) Creatinine 0.4 mg/dL (0.6-1.0) Estimated GFR (Cockcroft-Gault) 157.8 Glucose Level 157 mg/dL (70-99) Calcium Level 7.8 mg/dL (8.5-10.1) Phosphorus Level 2.2 mg/dL (2.6-4.7) Magnesium Level 1.7 mg/dL (1.8-2.4) Albumin 1.9 g/dL (3.4-5.0) O2 Saturation 98 % (92-99) 98 % (92-99) Arterial Blood pH 7.49 (7.35-7.45) 7.49 (7.35-7.45) Arterial Blood pCO2 at Patient Temp 29 mmHg (35-46) 26 mmHg (35-46) Arterial Blood pO2 at Patient Temp 111 mmHg (65-108) 107 mmHg (65-108) Arterial Blood HCO3 22 mmol/L (21-28) 19 mmol/L (21-28) Arterial Blood Base Excess -1 mmol/L (-3-3) -3 mmol/L (-3-3) FiO2 35 35 Microbiology 03/09/18 Urine Culture - Final, Complete 03/09/18 Urine Culture Result 1 (JEFFRY) - Final, Complete Medications Current Medications Sodium Chloride 500 ml @ 500 mls/hr Q1H IV Last administered on 03/07/18at 18: 29; Start 03/07/18 at 18:30; Stop 03/07/18 at 18:42; Status DC Pantoprazole Sodium (PROTONIX VIAL for IV PUSH) 80 mg 1X ONCE IVP Last administered on 03/07/18at 19:00; Start 03/07/18 at 18:30; Stop 03/07/18 at 18 :32; Status DC Octreotide Acetate 500 mcg/ Sodium Chloride 101 ml @ 5.05 mls/hr CONT PRN IV SEE I/O RECORD Last administered on 03/09/18at 10:38; Start 03/07/18 at 19:30; Stop 03/09/18 at 11:47; Status DC Ondansetron HCl (Zofran) 4 mg PRN Q8HRS PRN IV NAUSEA/VOMITING; Start at 19:15; Stop 03/08/18 at 19:14; Status DC Iohexol (Omnipaque 300 Mg/ml) 75 ml 1X ONCE IV Last administered on at 20:32; Start 03/07/18 at 19:15; Stop 03/07/18 at 19:16; Status DC Info (CONTRAST GIVEN -- Rx MONITORING) 1 each PRN DAILY PRN MC SEE COMMENTS; Start 03/07/18 at 19:15; Stop 03/09/18 at 19:14; Status DC Propofol 20 ml @ As Directed STK-MED ONCE IV ; Start 03/07/18 at 22:37; Stop 03/07/18 at 22:38; Status DC Pantoprazole Sodium 80 mg/ Sodium Chloride 100 ml @ 10 mls/hr Q10H IV Last administered on 03/10/18at 22:46; Start 03/07/18 at 23:00; Stop 03/11/18 at 11:10 ; Status DC Ringer's Solution 1,000 ml @ 200 mls/hr Q5H IV Last administered on at 20:41; Start 03/07/18 at 23:15; Stop 03/09/18 at 10:58; Status DC Dopamine HCl/ Dextrose 250 ml @ 4.461 mls/ hr CONT PRN IV SEE I/O RECORD; Start 03/08/18 at 09:30 Lidocaine/Sodium Bicarbonate (Buffered Lidocaine 1%) 3 ml STK-MED ONCE .ROUTE ; Start 03/08/18 at 11:47; Stop 03/08/18 at 11:48; Status DC Iohexol (Omnipaque 300 Mg/ml) 100 ml STK-MED ONCE .ROUTE ; Start 03/08/18 at 11 :47; Stop 03/08/18 at 11:48; Status DC Heparin Sodium/ Sodium Chloride 1,000 ml @ As Directed STK-MED ONCE .ROUTE ; Start 03/08/18 at 11:47; Stop 03/08/18 at 11:48; Status DC Midazolam HCl (Versed) 2 mg STK-MED ONCE .ROUTE ; Start 03/08/18 at 12:06; Stop 03/08/18 at 12:07; Status DC Fentanyl Citrate (Fentanyl 2ml Vial) 100 mcg STK-MED ONCE .ROUTE ; Start at 12:06; Stop 03/08/18 at 12:07; Status DC Heparin Sodium/ Sodium Chloride (HEPARIN for ARTERIAL LINE FLUSH) 1,000 unit 1X ONCE IART Last administered on 03/08/18at 12:30; Start 03/08/18 at 12:30; Stop 03/08/18 at 12:31; Status DC Lidocaine/Sodium Bicarbonate (Buffered Lidocaine 1%) 3 ml 1X ONCE IJ Last administered on 03/08/18at 12:15; Start 03/08/18 at 12:15; Stop 03/08/18 at 12 :21; Status DC Midazolam HCl (Versed) 2 mg 1X ONCE IV ; Start 03/08/18 at 12:15; Stop at 12:21; Status DC Fentanyl Citrate (Fentanyl 2ml Vial) 100 mcg 1X ONCE IV Last administered on 03/08/18at 12:15; Start 03/08/18 at 12:15; Stop 03/08/18 at 12:21; Status DC Iohexol (Omnipaque 300 Mg/ml) 100 ml 1X ONCE IART Last administered on at 12:15; Start 03/08/18 at 12:15; Stop 03/08/18 at 12:21; Status DC Phenylephrine HCl (Wander-Synephrine Inj) 10 mg STK-MED ONCE .ROUTE ; Start at 13:25; Stop 03/08/18 at 13:26; Status DC Succinylcholine Chloride (Anectine) 200 mg STK-MED ONCE .ROUTE ; Start at 14:55; Stop 03/08/18 at 14:56; Status DC Propofol 20 ml @ As Directed STK-MED ONCE IV ; Start 03/08/18 at 14:55; Stop 03/08/18 at 14:56; Status DC Ketamine HCl (Ketamine) 50 mg STK-MED ONCE .ROUTE ; Start 03/08/18 at 14:55; Stop 03/08/18 at 14:57; Status DC Dexamethasone Sodium Phosphate (Decadron) 20 mg STK-MED ONCE .ROUTE ; Start at 14:56; Stop 03/08/18 at 14:58; Status DC Ondansetron HCl (Zofran) 4 mg STK-MED ONCE .ROUTE ; Start 03/08/18 at 14:57; Stop 03/08/18 at 14:58; Status DC Lidocaine HCl (Lidocaine Pf 2% Vial) 5 ml STK-MED ONCE .ROUTE ; Start 03/08/18 at 14:57; Stop 03/08/18 at 14:58; Status DC Propofol 20 ml @ As Directed STK-MED ONCE IV ; Start 03/08/18 at 14:57; Stop 03/08/18 at 14:58; Status DC Fentanyl Citrate (Fentanyl 5ml Vial) 250 mcg STK-MED ONCE .ROUTE ; Start at 15:54; Stop 03/08/18 at 15:55; Status DC Rocuronium Mobile (Zemuron) 100 mg STK-MED ONCE .ROUTE ; Start 03/08/18 at 15: 55; Stop 03/08/18 at 15:57; Status DC Cefazolin Sodium 100 ml @ As Directed STK-MED ONCE IV ; Start 03/08/18 at 15: 57; Stop 03/08/18 at 15:59; Status DC Cellulose (Surgicel Hemostat 4x8) 1 each STK-MED ONCE .ROUTE Last administered on 03/08/18at 15:53; Start 03/08/18 at 16:27; Stop 03/08/18 at 16:28; Status DC Cellulose (Surgicel Hemostat 2x3) 1 each STK-MED ONCE .ROUTE Last administered on 03/08/18at 15:53; Start 03/08/18 at 16:42; Stop 03/08/18 at 16:44; Status DC Cellulose (Surgicel Hemostat 2x14) 1 each STK-MED ONCE .ROUTE ; Start 03/08/18 at 16:42; Stop 03/08/18 at 16:44; Status DC Cellulose (Surgicel Hemostat 4x8) 1 each STK-MED ONCE .ROUTE Last administered on 03/08/18at 15:53; Start 03/08/18 at 16:42; Stop 03/08/18 at 16:44; Status DC Calcium Chloride (Calcium Chloride) 1,000 mg STK-MED ONCE .ROUTE ; Start at 17:03; Stop 03/08/18 at 17:04; Status DC Calcium Chloride (Calcium Chloride) 1,000 mg STK-MED ONCE .ROUTE ; Start at 17:03; Stop 03/08/18 at 17:04; Status DC Sodium Bicarbonate (Sodium Bicarb Adult 8.4% Syr) 50 meq STK-MED ONCE .ROUTE ; Start 03/08/18 at 17:03; Stop 03/08/18 at 17:04; Status DC Sodium Bicarbonate (Sodium Bicarb Adult 8.4% Syr) 50 meq STK-MED ONCE .ROUTE ; Start 03/08/18 at 17:03; Stop 03/08/18 at 17:04; Status DC Epinephrine HCl (EPINEPHrine SYRINGE) 1 mg STK-MED ONCE .ROUTE ; Start at 17:03; Stop 03/08/18 at 17:04; Status DC Albumin Human 500 ml @ As Directed STK-MED ONCE IV ; Start 03/08/18 at 17:03; Stop 03/08/18 at 17:04; Status DC Sodium Bicarbonate (Sodium Bicarb Adult 8.4% Syr) 50 meq STK-MED ONCE .ROUTE ; Start 03/08/18 at 17:07; Stop 03/08/18 at 17:08; Status DC Sodium Bicarbonate (Sodium Bicarb Adult 8.4% Syr) 50 meq STK-MED ONCE .ROUTE ; Start 03/08/18 at 17:07; Stop 03/08/18 at 17:08; Status DC Cellulose (Surgicel Hemostat 4x8) 1 each STK-MED ONCE TP Last administered on 03/08/18at 15:53; Start 03/08/18 at 15:53; Stop 03/08/18 at 17:40; Status DC Sodium Bicarbonate (Sodium Bicarb Adult 8.4% Syr) 50 meq STK-MED ONCE .ROUTE ; Start 03/08/18 at 17:35; Stop 03/08/18 at 17:37; Status DC Calcium Chloride (Calcium Chloride) 1,000 mg STK-MED ONCE .ROUTE ; Start at 17:35; Stop 03/08/18 at 17:37; Status DC Albumin Human 500 ml @ As Directed STK-MED ONCE IV ; Start 03/08/18 at 17:41; Stop 03/08/18 at 17:43; Status DC Norepinephrine Bitartrate 250 ml @ 1.875 mls/ hr 1X ONCE IV Last administered on 03/08/18at 21:00; Start 03/08/18 at 17:45; Stop 03/09/18 at 08 :10; Status DC Vasopressin 40 unit/Dextrose 102 ml @ 6 mls/hr 1X ONCE IV Last administered on 03/08/18at 20:41; Start 03/08/18 at 18:00; Stop 03/09/18 at 10:59; Status DC Calcium Chloride (Calcium Chloride) 1,000 mg STK-MED ONCE .ROUTE ; Start at 17:57; Stop 03/08/18 at 17:59; Status DC Sodium Bicarbonate (Sodium Bicarb Adult 8.4% Syr) 50 meq STK-MED ONCE .ROUTE ; Start 03/08/18 at 18:04; Stop 03/08/18 at 18:06; Status DC Sodium Bicarbonate (Sodium Bicarb Adult 8.4% Syr) 50 meq STK-MED ONCE .ROUTE ; Start 03/08/18 at 18:05; Stop 03/08/18 at 18:06; Status DC Sodium Bicarbonate (Sodium Bicarb Adult 8.4% Syr) 50 meq STK-MED ONCE .ROUTE ; Start 03/08/18 at 18:07; Stop 03/08/18 at 18:08; Status DC Sodium Bicarbonate (Sodium Bicarb Adult 8.4% Syr) 50 meq STK-MED ONCE .ROUTE ; Start 03/08/18 at 18:07; Stop 03/08/18 at 18:08; Status DC Epinephrine HCl (EPINEPHrine SYRINGE) 1 mg STK-MED ONCE .ROUTE ; Start at 18:40; Stop 03/08/18 at 18:41; Status DC Prochlorperazine Edisylate (Compazine) 10 mg STK-MED ONCE .ROUTE ; Start at 18:42; Stop 03/08/18 at 18:44; Status DC Fentanyl Citrate (Fentanyl 2ml Vial) 100 mcg STK-MED ONCE .ROUTE ; Start at 18:43; Stop 03/08/18 at 18:44; Status DC Sevoflurane (Ultane) 90 ml STK-MED ONCE IH ; Start 03/08/18 at 18:48; Stop at 18:49; Status DC Cellulose (Surgicel Hemostat 2x3) 1 each STK-MED ONCE TP Last administered on 03/08/18at 15:55; Start 03/08/18 at 15:55; Stop 03/08/18 at 19:04; Status DC Cellulose (Surgicel Hemostat 2x3) 1 each STK-MED ONCE TP Last administered on 03/08/18at 15:53; Start 03/08/18 at 15:53; Stop 03/08/18 at 19:04; Status DC Propofol 100 ml @ As Directed STK-MED ONCE IV ; Start 03/08/18 at 19:56; Stop 03/08/18 at 19:58; Status DC Famotidine (Pepcid) 20 mg BID PO ; Start 03/08/18 at 21:00; Stop 03/09/18 at 08:11; Status DC Sodium Chloride (Normal Saline Flush) 3 ml QSHIFT PRN IV AFTER MEDS AND BLOOD DRAWS; Start 03/08/18 at 20:45; Status Cancel Morphine Sulfate (Morphine Sulfate) 1 mg PRN Q1HR PRN IV PAIN Last administered on 03/08/18at 21:12; Start 03/08/18 at 20:45; Stop 03/10/18 at 18: 45; Status DC Ondansetron HCl (Zofran) 4 mg PRN Q6HRS PRN IV NAUESA, 1ST CHOICE; Start 03/08 at 20:45 Fentanyl Citrate 30 ml @ 0 mls/hr CONT PRN IV SEE PROTOCOL Last administered on 03/09/18at 23:16; Start 03/08/18 at 22:15 Fentanyl Citrate (Fentanyl 2ml Vial) 25 mcg PRN Q1HR PRN IV SEE COMMENTS; Start 03/08/18 at 22:15; Stop 03/10/18 at 18:45; Status DC Fentanyl Citrate (Fentanyl 2ml Vial) 50 mcg PRN Q1HR PRN IV SEE COMMENTS Last administered on 03/08/18at 22:41; Start 03/08/18 at 22:15; Stop 03/12/18 at 16: 26; Status DC Chlorhexidine Gluconate (Peridex) 15 ml BID MM Last administered on 03/13/18at 09 :00; Start 03/09/18 at 09:00; Stop 03/13/18 at 12:19; Status DC Midazolam HCl 100 ml @ 0 mls/hr CONT PRN IV SEE PROTOCOL Last administered on 03/09/18at 21:43; Start 03/08/18 at 22:15; Stop 03/10/18 at 18:45; Status DC Factor IX (Pha) (Novoseven Rt) 1 mg 1X ONCE IV Last administered on at 01:09; Start 03/09/18 at 01:00; Stop 03/09/18 at 01:01; Status DC Lorazepam (Ativan) 2 mg STK-MED ONCE .ROUTE ; Start 03/09/18 at 01:15; Stop at 01:16; Status DC Norepinephrine Bitartrate 250 ml @ 1.875 mls/ hr CONT PRN IV SEE I/O RECORD Last administered on 03/09/18at 17:41; Start 03/09/18 at 01:45 Cefazolin Sodium/ Dextrose 50 ml @ 100 mls/hr 1X PREOP PRN IV PRIOR TO PROCEDURE Last administered on 03/09/18at 02:00; Start 03/09/18 at 02:00; Stop 03/10/18 at 01:59; Status DC Rocuronium Mobile (Zemuron) 100 mg STK-MED ONCE .ROUTE ; Start 03/09/18 at 01: 57; Stop 03/09/18 at 01:59; Status DC Fentanyl Citrate (Fentanyl 5ml Vial) 250 mcg STK-MED ONCE .ROUTE ; Start at 02:13; Stop 03/09/18 at 02:14; Status DC Cellulose (Surgicel Hemostat 2x3) 1 each STK-MED ONCE .ROUTE ; Start 03/09/18 at 02:23; Stop 03/09/18 at 02:25; Status DC Cellulose (Surgicel Hemostat 2x14) 1 each STK-MED ONCE .ROUTE ; Start 03/09/18 at 02:23; Stop 03/09/18 at 02:25; Status DC Cellulose (Surgicel Hemostat 4x8) 1 each STK-MED ONCE .ROUTE Last administered on 03/09/18at 02:04; Start 03/09/18 at 02:23; Stop 03/09/18 at 02:25; Status DC Sodium Chloride (Normal Saline Flush) 3 ml QSHIFT PRN IV AFTER MEDS AND BLOOD DRAWS; Start 03/09/18 at 03:30 Cellulose (Surgicel Hemostat 4x8) 1 each STK-MED ONCE TP Last administered on 03/09/18at 02:04; Start 03/09/18 at 02:04; Stop 03/09/18 at 03:20; Status DC Cellulose (Surgicel Hemostat 4x8) 1 each STK-MED ONCE TP Last administered on 03/09/18at 02:04; Start 03/09/18 at 02:04; Stop 03/09/18 at 03:20; Status DC Sodium Bicarbonate (Sodium Bicarb Adult 8.4% Syr) 150 meq STK-MED ONCE .ROUTE ; Start 03/08/18 at 10:00; Stop 03/09/18 at 10:30; Status DC Dopamine HCl/ Dextrose (DOPamine 400MG/ 250ML PREMIX) 400 mg STK-MED ONCE IV ; Start 03/08/18 at 10:00; Stop 03/09/18 at 10:30; Status DC Potassium Chloride/Dextrose 1,000 ml @ 100 mls/hr Q10H IV Last administered on 03/09/18at 11:22; Start 03/09/18 at 11:00; Stop 03/09/18 at 20:59; Status DC Magnesium Sulfate/ Dextrose 100 ml @ 25 mls/hr 1X ONCE IV Last administered on 03/09/18at 13:45; Start 03/09/18 at 12:45; Stop 03/09/18 at 16:44; Status DC Potassium Chloride/Water 50 ml @ 50 mls/hr 1X ONCE IV Last administered on at 13:43; Start 03/09/18 at 12:45; Stop 03/09/18 at 13:44; Status DC Magnesium Sulfate 50 ml @ 25 mls/hr PRN DAILY PRN IV for Mag < 1.7 on am labs Last administered on 03/10/18at 06:17; Start 03/09/18 at 13:45 Sodium Chloride 500 ml @ 500 mls/hr QIDPRN PRN IV U/O <30 cc/hr Last administered on 03/10/18at 09:00; Start 03/09/18 at 19:45 Info (Tpn Per Pharmacy) 1 each PRN DAILY PRN MC SEE COMMENTS; Start 03/10/18 at 09:00; Stop 03/10/18 at 12:42; Status DC Potassium Phosphate 13.6 mmol/Dextrose 104.5333 ml @ 52.267 m... Q2H IV Last administered on 03/10/18at 10:34; Start 03/10/18 at 10:00; Stop 03/10/18 at 11:59; Status DC Amino Acids/ Glycerin/ Electrolytes 1,000 ml @ 100 mls/hr Q10H IV Last administered on 03/11/18at 21:42; Start 03/10/18 at 13:00; Stop 03/12/18 at 21:59; Status DC Ringer's Solution 500 ml @ 500 mls/hr 1X ONCE IV Last administered on at 18:55; Start 03/10/18 at 19:45; Stop 03/10/18 at 20:44; Status DC Dextrose (Dextrose 50%-Water Syringe) 12.5 gm PRN Q15MIN PRN IV SEE COMMENTS; Start 03/11/18 at 07:00 Ringer's Solution 500 ml @ 500 mls/hr Q1H PRN IV FLUID LOSS Last administered on 03/13/18at 00:39; Start 03/11/18 at 07:00 Pantoprazole Sodium (PROTONIX VIAL for IV PUSH) 40 mg DAILY IVP Last administered on 03/13/18 09:00; Start 03/12/18 at 09:00 Potassium Phosphate 13.6 mmol/Dextrose 104.5333 ml @ 52.267 m... Q2H IV Last administered on 03/11/18 21:42; Start 03/11/18 at 14:00; Stop 03/11/18 at 19:59; Status DC Info (Tpn Per Pharmacy) 1 each PRN DAILY PRN MC SEE COMMENTS Last administered on 03/12/18 11:04; Start 03/12/18 at 09:30 Potassium Phosphate 13.6 mmol/Sodium Chloride 104.5333 ml @ 52.267 m... Q2H IV Last administered on 03/12/18 13:30; Start 03/12/18 at 09:30; Stop 03/12/18 at 15:29; Status DC Albumin Human 100 ml @ 100 mls/hr TID IV Last administered on 03/13/18 09:00; Start 03/12/18 at 14:00; Stop 03/14/18 at 09:59 Info (Tpn Per Pharmacy) 1 each PRN DAILY PRN MC SEE COMMENTS; Start 03/12/18 at 11:00; Status UNV Sodium Acetate 90 meq/Potassium Chloride 50 meq/ Potassium Phosphate 13.6 mmol/ Magnesium Sulfate 10 meq/ Calcium Gluconate 10 meq/ Multivitamins 10 ml/Chromium / Copper/Manganese/ Seleni/Zn 1 ml/ Total Parenteral Nutrition/Amino Acids/ Dextrose/ Fat Emulsion Intravenous 1,512 ml @ 63 mls/hr TPN CONT IV ; Start at 22:00; Stop 03/12/18 at 22:00; Status DC Sodium Acetate 60 meq/Potassium Chloride 50 meq/ Potassium Phosphate 13.6 mmol/ Magnesium Sulfate 10 meq/ Calcium Gluconate 10 meq/ Multivitamins 10 ml/Chromium / Copper/Manganese/ Seleni/Zn 1 ml/ Total Parenteral Nutrition/Amino Acids/ Dextrose/ Fat Emulsion Intravenous 1,512 ml @ 63 mls/hr TPN CONT IV Last administered on 03/12/18at 21:12; Start 03/12/18 at 22:00 Magnesium Sulfate 50 ml @ 25 mls/hr 1X ONCE IV Last administered on 03/13/18at 09:30; Start 03/13/18 at 09:30; Stop 03/13/18 at 11:29; Status DC Epinephrine (S2 Racepinephrine) 0.5 ml 1X ONCE NEB Last administered on at 11:30; Start 03/13/18 at 11:30; Stop 03/13/18 at 11:31; Status DC Potassium Phosphate 13.6 mmol/Sodium Chloride 104.5333 ml @ 52.267 m... Q2H IV ; Start 03/13/18 at 13:00; Stop 03/13/18 at 16:59 Active Scripts Active Reported Prilosec Otc (Omeprazole Magnesium) 20 Mg Tablet. 1 Tab PO DAILY Simvastatin 20 Mg Tablet 1 Tab PO QHS Vitals/I & O Vital Sign - Last 24 Hours 03/12/18 03/12/18 03/12/18 03/12/18 13:00 13:18 14:00 15:00 Temp 100.0 100.0 Pulse 76 82 80 Resp 11 16 B/P (MAP) 122/64 (83) 116/64 (81) 113/62 (79) Pulse Ox 100 100 100 100 O2 Delivery Ventilator Ventilator Ventilator Ventilator 03/12/18 03/12/18 03/12/18 03/12/18 15:20 16:00 16:00 17:00 Temp 100.0 100.0 Pulse 65 66 Resp 16 B/P (MAP) 110/55 (73) 100/55 (70) Pulse Ox 100 90 90 O2 Delivery Ventilator Mechanical Ventilator Ventilator Ventilator 03/12/18 03/12/18 03/12/18 03/12/18 17:37 18:00 19:00 19:56 Temp 99.7 99.7 Pulse 73 82 Resp 17 16 B/P (MAP) 114/60 (78) 119/61 (80) Pulse Ox 100 92 100 100 O2 Delivery Ventilator Ventilator Ventilator Ventilator 03/12/18 03/12/18 03/12/18 03/12/18 20:00 20:00 21:00 21:41 Pulse 78 80 Resp 16 16 B/P (MAP) 116/65 (82) 126/66 (86) Pulse Ox 100 100 100 O2 Delivery Mechanical Ventilator Ventilator Ventilator Ventilator 03/12/18 03/12/18 03/12/18 03/12/18 22:00 23:00 23:22 23:59 Pulse 84 82 Resp 16 17 B/P (MAP) 130/70 (90) 130/68 (88) Pulse Ox 100 100 100 O2 Delivery Ventilator Ventilator Ventilator Mechanical Ventilator 03/13/18 03/13/18 03/13/18 03/13/18 00:00 01:00 01:06 02:00 Temp 99.8 99.8 Pulse 80 76 72 Resp 16 16 16 B/P (MAP) 136/60 (85) 125/61 (82) 123/60 (81) Pulse Ox 100 100 100 100 O2 Delivery Ventilator Ventilator Ventilator Ventilator 03/13/18 03/13/18 03/13/18 03/13/18 03:00 03:02 04:00 04:00 Temp 99.9 99.9 Pulse 74 78 Resp 16 21 B/P (MAP) 123/57 (79) 120/62 (81) Pulse Ox 100 100 99 O2 Delivery Ventilator Ventilator Ventilator Mechanical Ventilator 03/13/18 03/13/18 03/13/18 03/13/18 04:51 05:00 06:00 07:00 Pulse 76 82 82 Resp 19 17 17 B/P (MAP) 123/61 (81) 119/64 (82) 115/64 (81) Pulse Ox 100 100 100 100 O2 Delivery Ventilator Ventilator Ventilator Ventilator 03/13/18 03/13/18 03/13/18 03/13/18 08:00 08:00 08:27 09:00 Temp 98.3 98.3 Pulse 80 79 Resp 19 18 B/P (MAP) 107/57 (74) 123/59 (80) Pulse Ox 99 100 100 O2 Delivery Mechanical Ventilator Ventilator Ventilator Ventilator 03/13/18 03/13/18 03/13/18 03/13/18 09:39 10:00 10:23 11:31 Pulse 78 Resp 12 B/P (MAP) 141/64 (89) Pulse Ox 100 99 100 98 O2 Delivery Ventilator Ventilator Ventilator Nasal Cannula O2 Flow Rate 2.0 Intake and Output 03/12/18 03/12/18 03/13/18 15:01 23:01 07:01 Intake Total 0 ml 1734 ml 1139 ml Output Total 1150 ml 1460 ml 1775 ml Balance -1150 ml 274 ml -636 ml MIKE RAY MD Mar 13, 2018 12:31
--- NOTE | 2018-03-13 12:33 | PDOC ---
MARGARITO PECK [employer] 03/13/18 1233: SURGICAL PROGRESS NOTE Subjective resting now extubated Vital Signs Vital Signs Date Time Temp Pulse Resp B/P (MAP) Pulse Ox O2 Delivery O2 Flow Rate FiO2 03/13/18 11:31 98 Nasal Cannula 2.0 03/13/18 10:00 78 12 141/64 (89) 03/13/18 08:00 98.3 98.3 I&O Intake and Output 03/13/18 07:01 Intake Total 2873 ml Output Total 4385 ml Balance -1512 ml Intake Oral 0 ml IV Total 2873 ml Output Urine Total 2060 ml Drainage Total 2325 ml General: Cooperative, No acute distress Abdomen: Soft, Other (old drain site serous fluid) Labs Laboratory Tests Test 03/12/18 05:30 03/12/18 08:45 03/12/18 10:00 03/13/18 05:30 White Blood Count 12.3 x10^3/uL (4.0-11.0) Red Blood Count 3.52 x10^6/uL (3.50-5.40) Hemoglobin 10.9 g/dL (12.0-15.5) Hematocrit 31.6 % (36.0-47.0) Mean Corpuscular Volume 90 fL (79-100) Mean Corpuscular Hemoglobin 31 pg (25-35) Mean Corpuscular Hemoglobin Concent 34 g/dL (31-37) Red Cell Distribution Width 14.8 % (11.5-14.5) Platelet Count 88 x10^3/uL (140-400) Neutrophils (%) (Auto) 69 % (31-73) Lymphocytes (%) (Auto) 18 % (24-48) Monocytes (%) (Auto) 10 % (0-9) Eosinophils (%) (Auto) 2 % (0-3) Basophils (%) (Auto) 0 % (0-3) Neutrophils # (Auto) 8.5 x10^3uL (1.8-7.7) Lymphocytes # (Auto) 2.2 x10^3/uL (1.0-4.8) Monocytes # (Auto) 1.3 x10^3/uL (0.0-1.1) Eosinophils # (Auto) 0.3 x10^3/uL (0.0-0.7) Basophils # (Auto) 0.0 x10^3/uL (0.0-0.2) Sodium Level 142 mmol/L (136-145) 139 mmol/L (136-145) Potassium Level 3.9 mmol/L (3.5-5.1) 3.8 mmol/L (3.5-5.1) Chloride Level 111 mmol/L (98-107) 109 mmol/L (98-107) Carbon Dioxide Level 25 mmol/L (21-32) 23 mmol/L (21-32) Anion Gap 6 (6-14) 7 (6-14) Blood Urea Nitrogen 17 mg/dL (7-20) 11 mg/dL (7-20) Creatinine 0.5 mg/dL (0.6-1.0) 0.4 mg/dL (0.6-1.0) Estimated GFR (Cockcroft-Gault) 122.0 157.8 Glucose Level 109 mg/dL (70-99) 157 mg/dL (70-99) Calcium Level 7.2 mg/dL (8.5-10.1) 7.8 mg/dL (8.5-10.1) Phosphorus Level 2.4 mg/dL (2.6-4.7) 2.2 mg/dL (2.6-4.7) Albumin 1.5 g/dL (3.4-5.0) 1.9 g/dL (3.4-5.0) O2 Saturation 98 % (92-99) 99 % (92-99) Arterial Blood pH 7.48 (7.35-7.45) 7.49 (7.35-7.45) Arterial Blood pCO2 at Patient Temp 29 mmHg (35-46) 29 mmHg (35-46) Arterial Blood pO2 at Patient Temp 131 mmHg (65-108) 123 mmHg (65-108) Arterial Blood HCO3 21 mmol/L (21-28) 22 mmol/L (21-28) Arterial Blood Base Excess -2 mmol/L (-3-3) -1 mmol/L (-3-3) FiO2 35 35 Magnesium Level 1.7 mg/dL (1.8-2.4) Test 03/13/18 08:00 03/13/18 09:25 O2 Saturation 98 % (92-99) 98 % (92-99) Arterial Blood pH 7.49 (7.35-7.45) 7.49 (7.35-7.45) Arterial Blood pCO2 at Patient Temp 29 mmHg (35-46) 26 mmHg (35-46) Arterial Blood pO2 at Patient Temp 111 mmHg (65-108) 107 mmHg (65-108) Arterial Blood HCO3 22 mmol/L (21-28) 19 mmol/L (21-28) Arterial Blood Base Excess -1 mmol/L (-3-3) -3 mmol/L (-3-3) FiO2 35 35 Laboratory Tests Test 03/13/18 05:30 03/13/18 08:00 03/13/18 09:25 Sodium Level 139 mmol/L (136-145) Potassium Level 3.8 mmol/L (3.5-5.1) Chloride Level 109 mmol/L (98-107) Carbon Dioxide Level 23 mmol/L (21-32) Anion Gap 7 (6-14) Blood Urea Nitrogen 11 mg/dL (7-20) Creatinine 0.4 mg/dL (0.6-1.0) Estimated GFR (Cockcroft-Gault) 157.8 Glucose Level 157 mg/dL (70-99) Calcium Level 7.8 mg/dL (8.5-10.1) Phosphorus Level 2.2 mg/dL (2.6-4.7) Magnesium Level 1.7 mg/dL (1.8-2.4) Albumin 1.9 g/dL (3.4-5.0) O2 Saturation 98 % (92-99) 98 % (92-99) Arterial Blood pH 7.49 (7.35-7.45) 7.49 (7.35-7.45) Arterial Blood pCO2 at Patient Temp 29 mmHg (35-46) 26 mmHg (35-46) Arterial Blood pO2 at Patient Temp 111 mmHg (65-108) 107 mmHg (65-108) Arterial Blood HCO3 22 mmol/L (21-28) 19 mmol/L (21-28) Arterial Blood Base Excess -1 mmol/L (-3-3) -3 mmol/L (-3-3) FiO2 35 35 Problem List Problems Medical Problems: (1) Hypotension Status: Acute Assessment/Plan supportive measures SUMEET SNOW MD 03/13/18 0394: SURGICAL PROGRESS NOTE Assessment/Plan Agree with Ras assessment and plan no new surgical recommendations MARGARITO PECK APRN Mar 13, 2018 12:33 SUMEET SNOW MD Mar 13, 2018 14:07
[2018-03-13] MEDS: TPN PER PHARMACY MC PRN (12:36)
--- NOTE | 2018-03-13 12:39 | NUR ---
Pharmacy TPN Dosing Note S: CARLA ESPINOZA is a 72 year old F Currently receiving Central Continuous TPN started 03/12/18 B:Pertinent PMH: HEPATIC CARCINOMA, MALNUTRITION Height: 5 feet, 4 inches Weight: 66.133168 kg Current diet: npo LABS: Sodium: 139 Potassium: 3.8 Chloride: 109 Calcium: 7.8 Corrected Calcium: 9.48 Magnesium: 1.7 CO2: 23 SCr: 0.4 Glucose: 157 Albumin: 1.9 AST: 26 ALT: 24 TPN FORMULA: TPN TYPE: Central Continuous AMINO ACIDS: 70 gm DEXTROSE: 195 gm LIPIDS: 20 gm SODIUM CHLORIDE: mEq SODIUM ACETATE: 60 mEq SODIUM PHOSPHATE: mmol POTASSIUM CHLORIDE: 40 mEq POTASSIUM ACETATE: mEq POTASSIUM PHOSPHATE: 25 mmol MAGNESIUM: 15 mEq CALCIUM: 5 mEq INSULIN: units MULTIPLE VITAMIN: 10 ml TRACE ELEMENTS: 1 ml(s) TPN PLAN: -Mag 1.7, recieved 2gm bolus this am and will increase to 15meq -Phos=2.2, received 27.2 mmol Kphos this am, and will increase to 25mmol (will decrease KCl slightly to offset incr K from KPhos) -Labs in the am R: Continue TPN as written above. Will monitor electrolytes, glucose, and tolerance to TPN. ENEDELIA LIMON [facility], 03/13/18 0906
[2018-03-13] MEDS ORDERED: CONTRAST GIVEN. MC PRN (12:45)
[2018-03-13] MEDS ORDERED: IOHEXOL 300 MG/ML 100ML VIAL. IV ONE (12:45)
[2018-03-13] MEDS: POTASSIUM PHOSPHATE DIBASIC 13.6 MMOL in IV NORMAL SALINE 100ML 100 ML IV SCH ×2 (13:00→15:00)
[2018-03-13 14:34] LABS: BASO # 0.1 x10^3/uL (0.0-0.2); BASO % 1 % (0-3); EOS # 0.3 x10^3/uL (0.0-0.7); EOS % 3 % (0-3); HEMATOCRIT 31.1 % (36.0-47.0); HEMOGLOBIN 10.9 g/dL (12.0-15.5); LYMPH # 1.2 x10^3/uL (1.0-4.8); LYMPH % 12 % (24-48); MEAN CORPUSCULAR HEMOGLOBIN 32 pg (25-35); MEAN CORPUSCULAR HGB CONC 35 g/dL (31-37); MEAN CORPUSCULAR VOLUME 91 fL (79-100); MONO # 1.5 x10^3/uL (0.0-1.1); MONO % 14 % (0-9); NEUT # 7.3 x10^3uL (1.8-7.7); NEUT % 71 % (31-73); PLATELET COUNT 110 x10^3/uL (140-400); RED BLOOD COUNT 3.41 x10^6/uL (3.50-5.40); RED CELL DISTRIBUTION WIDTH 15.3 % (11.5-14.5); WHITE BLOOD COUNT 10.3 x10^3/uL (4.0-11.0)
--- NOTE | 2018-03-13 15:53 | RAD ---
EXAM: Chest, single view. HISTORY: Intubation. COMPARISON: 03/12/2018 FINDINGS: A frontal view of the chest obtained. There is an endotracheal tube within the distal trachea. There is a nasogastric tube within the proximal stomach. The nasogastric tube side-port is at the gastroesophageal junction or within the distal esophagus. There is a right internal jugular catheter with the tip in the superior vena cava. There is no infiltrate, pleural effusion or pneumothorax. IMPRESSION: 1. No acute pulmonary finding. 2. Support lines and tubes, described above. Note is made that a nasogastric tube side-port is at the gastroesophageal junction or within the distal esophagus. Electronically signed by: Rosita Tamayo MD (03/13/2018 3:48 PM) [place] [id number]
--- NOTE | 2018-03-13 17:55 | NUR ---
Summary of Shift: Patient extubated at [address] Ramos. Post-extubation, patient experienced labored, sonorous breathing. Coughing did not make it subside. RT gave breathing treatment. Dr. Ramos assessed patient-- stated he believed it was due to her "vocal cords" and not stridor. No further orders received. Patient has greatly improved at this time. Still has occasional wheezes when breathing. Patient has had dark brown, bloody, muccoid BM x2. Large in size. RN notified Dr. Maciel. VS stable. No change. Order received to get labs and assess HgB. Waiting for lab results.
[2018-03-13 18:20] LABS: HEMATOCRIT 30.7 % (36.0-47.0); HEMOGLOBIN 10.7 g/dL (12.0-15.5); RED BLOOD COUNT 3.39 x10^6/uL (3.50-5.40); RED CELL DISTRIBUTION WIDTH 15.2 % (11.5-14.5); WHITE BLOOD COUNT 9.5 x10^3/uL (4.0-11.0)
[2018-03-13 18:29] LABS: CALCIUM 8.6 mg/dL (8.5-10.1); CREATININE 0.5 mg/dL (0.6-1.0); POTASSIUM 3.7 mmol/L (3.5-5.1)
[2018-03-13 18:35] LABS: ALBUMIN 2.8 g/dL (3.4-5.0); ALBUMIN/GLOBULIN RATIO 0.8 (1.0-1.7); TOTAL BILIRUBIN 1.2 mg/dL (0.2-1.0); TOTAL PROTEIN 6.3 g/dL (6.4-8.2)
[2018-03-13] MEDS: IPRATRPIUM/ALBUTEROL 0.5/2.5MG 3 ML NEBU. NEB SCH (20:37)
[2018-03-13] MEDS ORDERED: TOTAL PARENTERAL NUTRITION IV SCH ×10 (22:00)
[2018-03-13] MEDS ORDERED: AMINO ACID IV SCH ×10 (22:00)
[2018-03-13] MEDS ORDERED: DEXTROSE 70% IV SCH ×10 (22:00)
[2018-03-13] MEDS ORDERED: [UNRECOGNIZED DRUG - OTHER] IV SCH ×10 (22:00)
[2018-03-13 23:45] LABS: HEMATOCRIT 28.9 % (36.0-47.0); HEMOGLOBIN 10.1 g/dL (12.0-15.5); RED BLOOD COUNT 3.2 x10^6/uL (3.50-5.40); RED CELL DISTRIBUTION WIDTH 14.8 % (11.5-14.5); WHITE BLOOD COUNT 8.4 x10^3/uL (4.0-11.0)
[2018-03-14] VITALS (24 sets, daily range): BP systolic 99–135; BP diastolic 21–70
[2018-03-14 05:42] LABS: ALBUMIN 2.7 g/dL (3.4-5.0); CALCIUM 8.2 mg/dL (8.5-10.1); CREATININE 0.5 mg/dL (0.6-1.0); PHOSPHORUS 3.1 mg/dL (2.6-4.7); POTASSIUM 3.4 mmol/L (3.5-5.1)
[2018-03-14 05:52] LABS: BASO % 0 % (0-3); EOS # 0.4 x10^3/uL (0.0-0.7); EOS % 5 % (0-3); HEMATOCRIT 29.9 % (36.0-47.0); HEMOGLOBIN 10.1 g/dL (12.0-15.5); LYMPH # 1.1 x10^3/uL (1.0-4.8); LYMPH % 13 % (24-48); MEAN CORPUSCULAR HEMOGLOBIN 31 pg (25-35); MEAN CORPUSCULAR HGB CONC 34 g/dL (31-37); MEAN CORPUSCULAR VOLUME 91 fL (79-100); MONO # 1.5 x10^3/uL (0.0-1.1); MONO % 18 % (0-9); NEUT # 5.2 x10^3uL (1.8-7.7); NEUT % 64 % (31-73); PLATELET COUNT 140 x10^3/uL (140-400); RED BLOOD COUNT 3.28 x10^6/uL (3.50-5.40); RED CELL DISTRIBUTION WIDTH 15.3 % (11.5-14.5); WHITE BLOOD COUNT 8.1 x10^3/uL (4.0-11.0)
[2018-03-14] MEDS ORDERED: POTASSIUM CL 40MEQ IN 0.9%NACL 1,000 ML IV ONE (08:15)
[2018-03-14] MEDS ORDERED: IOHEXOL 300 MG/ML 100ML VIAL. IV ONE (08:30)
[2018-03-14] MEDS: IPRATRPIUM/ALBUTEROL 0.5/2.5MG 3 ML NEBU. NEB SCH ×4 (08:34→20:26)
[2018-03-14] MEDS: fentaNYL PF VIAL 100 MCG/2 ML VIAL IV PRN ×4 (08:44→20:23)
[2018-03-14] MEDS ORDERED: CALCIUM GLUCONATE 1,000 MG in IV DEXTROSE 5% 100ML 100 ML IV ONE (09:00)
--- NOTE | 2018-03-14 09:10 | PDOC ---
SURGICAL PROGRESS NOTE Subjective Extubated awake and alert. Wants to eat. Some abdominal pain Vital Signs Vital Signs Date Time Temp Pulse Resp B/P (MAP) Pulse Ox O2 Delivery O2 Flow Rate FiO2 03/14/18 08:44 16 03/14/18 08:34 98 Nasal Cannula 2.0 03/14/18 06:00 74 107/57 (74) 03/14/18 04:00 99.3 99.3 I&O Intake and Output 03/14/18 07:01 Intake Total 901 ml Output Total 6385 ml Balance -5484 ml IV Total 901 ml Output Urine Total 3875 ml Drainage Total 2510 ml # Bowel Movements 4 PATIENT HAS A PEREIRA: Yes General: Alert, Oriented X3, Cooperative, mild distress Lungs: Clear to auscultation, Normal air movement Heart: Regular rate Abdomen: Normal bowel sounds, Soft, Other (mild abd ttp, having stools) Extremities: No edema Labs Laboratory Tests Test 03/12/18 10:00 03/13/18 05:30 03/13/18 08:00 03/13/18 09:25 O2 Saturation 99 % (92-99) 98 % (92-99) 98 % (92-99) Arterial Blood pH 7.49 (7.35-7.45) 7.49 (7.35-7.45) 7.49 (7.35-7.45) Arterial Blood pCO2 at Patient Temp 29 mmHg (35-46) 29 mmHg (35-46) 26 mmHg (35-46) Arterial Blood pO2 at Patient Temp 123 mmHg (65-108) 111 mmHg (65-108) 107 mmHg (65-108) Arterial Blood HCO3 22 mmol/L (21-28) 22 mmol/L (21-28) 19 mmol/L (21-28) Arterial Blood Base Excess -1 mmol/L (-3-3) -1 mmol/L (-3-3) -3 mmol/L (-3-3) FiO2 35 35 35 White Blood Count 10.3 x10^3/uL (4.0-11.0) Red Blood Count 3.41 x10^6/uL (3.50-5.40) Hemoglobin 10.9 g/dL (12.0-15.5) Hematocrit 31.1 % (36.0-47.0) Mean Corpuscular Volume 91 fL (79-100) Mean Corpuscular Hemoglobin 32 pg (25-35) Mean Corpuscular Hemoglobin Concent 35 g/dL (31-37) Red Cell Distribution Width 15.3 % (11.5-14.5) Platelet Count 110 x10^3/uL (140-400) Neutrophils (%) (Auto) 71 % (31-73) Lymphocytes (%) (Auto) 12 % (24-48) Monocytes (%) (Auto) 14 % (0-9) Eosinophils (%) (Auto) 3 % (0-3) Basophils (%) (Auto) 1 % (0-3) Neutrophils # (Auto) 7.3 x10^3uL (1.8-7.7) Lymphocytes # (Auto) 1.2 x10^3/uL (1.0-4.8) Monocytes # (Auto) 1.5 x10^3/uL (0.0-1.1) Eosinophils # (Auto) 0.3 x10^3/uL (0.0-0.7) Basophils # (Auto) 0.1 x10^3/uL (0.0-0.2) Sodium Level 139 mmol/L (136-145) Potassium Level 3.8 mmol/L (3.5-5.1) Chloride Level 109 mmol/L (98-107) Carbon Dioxide Level 23 mmol/L (21-32) Anion Gap 7 (6-14) Blood Urea Nitrogen 11 mg/dL (7-20) Creatinine 0.4 mg/dL (0.6-1.0) Estimated GFR (Cockcroft-Gault) 157.8 Glucose Level 157 mg/dL (70-99) Calcium Level 7.8 mg/dL (8.5-10.1) Phosphorus Level 2.2 mg/dL (2.6-4.7) Magnesium Level 1.7 mg/dL (1.8-2.4) Albumin 1.9 g/dL (3.4-5.0) Test 03/13/18 17:45 03/13/18 23:40 03/14/18 05:00 White Blood Count 9.5 x10^3/uL (4.0-11.0) 8.4 x10^3/uL (4.0-11.0) 8.1 x10^3/uL (4.0-11.0) Red Blood Count 3.39 x10^6/uL (3.50-5.40) 3.20 x10^6/uL (3.50-5.40) 3.28 x10^6/uL (3.50-5.40) Hemoglobin 10.7 g/dL (12.0-15.5) 10.1 g/dL (12.0-15.5) 10.1 g/dL (12.0-15.5) Hematocrit 30.7 % (36.0-47.0) 28.9 % (36.0-47.0) 29.9 % (36.0-47.0) Mean Corpuscular Volume 91 fL (79-100) 90 fL (79-100) 91 fL (79-100) Mean Corpuscular Hemoglobin 32 pg (25-35) 32 pg (25-35) 31 pg (25-35) Mean Corpuscular Hemoglobin Concent 35 g/dL (31-37) 35 g/dL (31-37) 34 g/dL (31-37) Red Cell Distribution Width 15.2 % (11.5-14.5) 14.8 % (11.5-14.5) 15.3 % (11.5-14.5) Platelet Count 130 x10^3/uL (140-400) 129 x10^3/uL (140-400) 140 x10^3/uL (140-400) Sodium Level 143 mmol/L (136-145) 143 mmol/L (136-145) Potassium Level 3.7 mmol/L (3.5-5.1) 3.4 mmol/L (3.5-5.1) Chloride Level 110 mmol/L (98-107) 110 mmol/L (98-107) Carbon Dioxide Level 26 mmol/L (21-32) 25 mmol/L (21-32) Anion Gap 7 (6-14) 8 (6-14) Blood Urea Nitrogen 9 mg/dL (7-20) 11 mg/dL (7-20) Creatinine 0.5 mg/dL (0.6-1.0) 0.5 mg/dL (0.6-1.0) Estimated GFR (Cockcroft-Gault) 122.0 122.0 BUN/Creatinine Ratio 18 (6-20) Glucose Level 119 mg/dL (70-99) 144 mg/dL (70-99) Calcium Level 8.6 mg/dL (8.5-10.1) 8.2 mg/dL (8.5-10.1) Total Bilirubin 1.2 mg/dL (0.2-1.0) Aspartate Amino Transf (AST/SGOT) 66 U/L (15-37) Alanine Aminotransferase (ALT/SGPT) 37 U/L (14-59) Alkaline Phosphatase 183 U/L (46-116) Total Protein 6.3 g/dL (6.4-8.2) Albumin 2.8 g/dL (3.4-5.0) 2.7 g/dL (3.4-5.0) Albumin/Globulin Ratio 0.8 (1.0-1.7) Neutrophils (%) (Auto) 64 % (31-73) Lymphocytes (%) (Auto) 13 % (24-48) Monocytes (%) (Auto) 18 % (0-9) Eosinophils (%) (Auto) 5 % (0-3) Basophils (%) (Auto) 0 % (0-3) Neutrophils # (Auto) 5.2 x10^3uL (1.8-7.7) Lymphocytes # (Auto) 1.1 x10^3/uL (1.0-4.8) Monocytes # (Auto) 1.5 x10^3/uL (0.0-1.1) Eosinophils # (Auto) 0.4 x10^3/uL (0.0-0.7) Basophils # (Auto) 0.0 x10^3/uL (0.0-0.2) Phosphorus Level 3.1 mg/dL (2.6-4.7) Magnesium Level 1.9 mg/dL (1.8-2.4) Laboratory Tests Test 03/13/18 09:25 03/13/18 17:45 03/13/18 23:40 03/14/18 05:00 O2 Saturation 98 % (92-99) Arterial Blood pH 7.49 (7.35-7.45) Arterial Blood pCO2 at Patient Temp 26 mmHg (35-46) Arterial Blood pO2 at Patient Temp 107 mmHg (65-108) Arterial Blood HCO3 19 mmol/L (21-28) Arterial Blood Base Excess -3 mmol/L (-3-3) FiO2 35 White Blood Count 9.5 x10^3/uL (4.0-11.0) 8.4 x10^3/uL (4.0-11.0) 8.1 x10^3/uL (4.0-11.0) Red Blood Count 3.39 x10^6/uL (3.50-5.40) 3.20 x10^6/uL (3.50-5.40) 3.28 x10^6/uL (3.50-5.40) Hemoglobin 10.7 g/dL (12.0-15.5) 10.1 g/dL (12.0-15.5) 10.1 g/dL (12.0-15.5) Hematocrit 30.7 % (36.0-47.0) 28.9 % (36.0-47.0) 29.9 % (36.0-47.0) Mean Corpuscular Volume 91 fL (79-100) 90 fL (79-100) 91 fL (79-100) Mean Corpuscular Hemoglobin 32 pg (25-35) 32 pg (25-35) 31 pg (25-35) Mean Corpuscular Hemoglobin Concent 35 g/dL (31-37) 35 g/dL (31-37) 34 g/dL (31-37) Red Cell Distribution Width 15.2 % (11.5-14.5) 14.8 % (11.5-14.5) 15.3 % (11.5-14.5) Platelet Count 130 x10^3/uL (140-400) 129 x10^3/uL (140-400) 140 x10^3/uL (140-400) Sodium Level 143 mmol/L (136-145) 143 mmol/L (136-145) Potassium Level 3.7 mmol/L (3.5-5.1) 3.4 mmol/L (3.5-5.1) Chloride Level 110 mmol/L (98-107) 110 mmol/L (98-107) Carbon Dioxide Level 26 mmol/L (21-32) 25 mmol/L (21-32) Anion Gap 7 (6-14) 8 (6-14) Blood Urea Nitrogen 9 mg/dL (7-20) 11 mg/dL (7-20) Creatinine 0.5 mg/dL (0.6-1.0) 0.5 mg/dL (0.6-1.0) Estimated GFR (Cockcroft-Gault) 122.0 122.0 BUN/Creatinine Ratio 18 (6-20) Glucose Level 119 mg/dL (70-99) 144 mg/dL (70-99) Calcium Level 8.6 mg/dL (8.5-10.1) 8.2 mg/dL (8.5-10.1) Total Bilirubin 1.2 mg/dL (0.2-1.0) Aspartate Amino Transf (AST/SGOT) 66 U/L (15-37) Alanine Aminotransferase (ALT/SGPT) 37 U/L (14-59) Alkaline Phosphatase 183 U/L (46-116) Total Protein 6.3 g/dL (6.4-8.2) Albumin 2.8 g/dL (3.4-5.0) 2.7 g/dL (3.4-5.0) Albumin/Globulin Ratio 0.8 (1.0-1.7) Neutrophils (%) (Auto) 64 % (31-73) Lymphocytes (%) (Auto) 13 % (24-48) Monocytes (%) (Auto) 18 % (0-9) Eosinophils (%) (Auto) 5 % (0-3) Basophils (%) (Auto) 0 % (0-3) Neutrophils # (Auto) 5.2 x10^3uL (1.8-7.7) Lymphocytes # (Auto) 1.1 x10^3/uL (1.0-4.8) Monocytes # (Auto) 1.5 x10^3/uL (0.0-1.1) Eosinophils # (Auto) 0.4 x10^3/uL (0.0-0.7) Basophils # (Auto) 0.0 x10^3/uL (0.0-0.2) Phosphorus Level 3.1 mg/dL (2.6-4.7) Magnesium Level 1.9 mg/dL (1.8-2.4) Problem List Problems Medical Problems: (1) Hypotension Status: Acute Assessment/Plan S/P splenectomy with bleeding Doing well, afebrile normal wbc so will hold CT scan at this time Swallow study if good can advance diet Supportive care SUMETE SNOW MD Mar 14, 2018 09:10
--- NOTE | 2018-03-14 09:27 | PDOC ---
PULMONARY PROGRESS NOTES Subjective EXTUBATED 03/13 NO RESP DISTRESS Vitals Vital Signs Date Time Temp Pulse Resp B/P (MAP) Pulse Ox O2 Delivery O2 Flow Rate FiO2 03/14/18 08:44 16 03/14/18 08:34 98 Nasal Cannula 2.0 03/14/18 06:00 74 107/57 (74) 03/14/18 04:00 99.3 99.3 Lungs: Clear Cardiovascular: S1, S2 Abdomen: Soft Skin: Warm, Dry Labs Laboratory Tests Test 03/12/18 10:00 03/13/18 05:30 03/13/18 08:00 03/13/18 09:25 O2 Saturation 99 % (92-99) 98 % (92-99) 98 % (92-99) Arterial Blood pH 7.49 (7.35-7.45) 7.49 (7.35-7.45) 7.49 (7.35-7.45) Arterial Blood pCO2 at Patient Temp 29 mmHg (35-46) 29 mmHg (35-46) 26 mmHg (35-46) Arterial Blood pO2 at Patient Temp 123 mmHg (65-108) 111 mmHg (65-108) 107 mmHg (65-108) Arterial Blood HCO3 22 mmol/L (21-28) 22 mmol/L (21-28) 19 mmol/L (21-28) Arterial Blood Base Excess -1 mmol/L (-3-3) -1 mmol/L (-3-3) -3 mmol/L (-3-3) FiO2 35 35 35 White Blood Count 10.3 x10^3/uL (4.0-11.0) Red Blood Count 3.41 x10^6/uL (3.50-5.40) Hemoglobin 10.9 g/dL (12.0-15.5) Hematocrit 31.1 % (36.0-47.0) Mean Corpuscular Volume 91 fL (79-100) Mean Corpuscular Hemoglobin 32 pg (25-35) Mean Corpuscular Hemoglobin Concent 35 g/dL (31-37) Red Cell Distribution Width 15.3 % (11.5-14.5) Platelet Count 110 x10^3/uL (140-400) Neutrophils (%) (Auto) 71 % (31-73) Lymphocytes (%) (Auto) 12 % (24-48) Monocytes (%) (Auto) 14 % (0-9) Eosinophils (%) (Auto) 3 % (0-3) Basophils (%) (Auto) 1 % (0-3) Neutrophils # (Auto) 7.3 x10^3uL (1.8-7.7) Lymphocytes # (Auto) 1.2 x10^3/uL (1.0-4.8) Monocytes # (Auto) 1.5 x10^3/uL (0.0-1.1) Eosinophils # (Auto) 0.3 x10^3/uL (0.0-0.7) Basophils # (Auto) 0.1 x10^3/uL (0.0-0.2) Sodium Level 139 mmol/L (136-145) Potassium Level 3.8 mmol/L (3.5-5.1) Chloride Level 109 mmol/L (98-107) Carbon Dioxide Level 23 mmol/L (21-32) Anion Gap 7 (6-14) Blood Urea Nitrogen 11 mg/dL (7-20) Creatinine 0.4 mg/dL (0.6-1.0) Estimated GFR (Cockcroft-Gault) 157.8 Glucose Level 157 mg/dL (70-99) Calcium Level 7.8 mg/dL (8.5-10.1) Phosphorus Level 2.2 mg/dL (2.6-4.7) Magnesium Level 1.7 mg/dL (1.8-2.4) Albumin 1.9 g/dL (3.4-5.0) Test 03/13/18 17:45 03/13/18 23:40 03/14/18 05:00 White Blood Count 9.5 x10^3/uL (4.0-11.0) 8.4 x10^3/uL (4.0-11.0) 8.1 x10^3/uL (4.0-11.0) Red Blood Count 3.39 x10^6/uL (3.50-5.40) 3.20 x10^6/uL (3.50-5.40) 3.28 x10^6/uL (3.50-5.40) Hemoglobin 10.7 g/dL (12.0-15.5) 10.1 g/dL (12.0-15.5) 10.1 g/dL (12.0-15.5) Hematocrit 30.7 % (36.0-47.0) 28.9 % (36.0-47.0) 29.9 % (36.0-47.0) Mean Corpuscular Volume 91 fL (79-100) 90 fL (79-100) 91 fL (79-100) Mean Corpuscular Hemoglobin 32 pg (25-35) 32 pg (25-35) 31 pg (25-35) Mean Corpuscular Hemoglobin Concent 35 g/dL (31-37) 35 g/dL (31-37) 34 g/dL (31-37) Red Cell Distribution Width 15.2 % (11.5-14.5) 14.8 % (11.5-14.5) 15.3 % (11.5-14.5) Platelet Count 130 x10^3/uL (140-400) 129 x10^3/uL (140-400) 140 x10^3/uL (140-400) Sodium Level 143 mmol/L (136-145) 143 mmol/L (136-145) Potassium Level 3.7 mmol/L (3.5-5.1) 3.4 mmol/L (3.5-5.1) Chloride Level 110 mmol/L (98-107) 110 mmol/L (98-107) Carbon Dioxide Level 26 mmol/L (21-32) 25 mmol/L (21-32) Anion Gap 7 (6-14) 8 (6-14) Blood Urea Nitrogen 9 mg/dL (7-20) 11 mg/dL (7-20) Creatinine 0.5 mg/dL (0.6-1.0) 0.5 mg/dL (0.6-1.0) Estimated GFR (Cockcroft-Gault) 122.0 122.0 BUN/Creatinine Ratio 18 (6-20) Glucose Level 119 mg/dL (70-99) 144 mg/dL (70-99) Calcium Level 8.6 mg/dL (8.5-10.1) 8.2 mg/dL (8.5-10.1) Total Bilirubin 1.2 mg/dL (0.2-1.0) Aspartate Amino Transf (AST/SGOT) 66 U/L (15-37) Alanine Aminotransferase (ALT/SGPT) 37 U/L (14-59) Alkaline Phosphatase 183 U/L (46-116) Total Protein 6.3 g/dL (6.4-8.2) Albumin 2.8 g/dL (3.4-5.0) 2.7 g/dL (3.4-5.0) Albumin/Globulin Ratio 0.8 (1.0-1.7) Neutrophils (%) (Auto) 64 % (31-73) Lymphocytes (%) (Auto) 13 % (24-48) Monocytes (%) (Auto) 18 % (0-9) Eosinophils (%) (Auto) 5 % (0-3) Basophils (%) (Auto) 0 % (0-3) Neutrophils # (Auto) 5.2 x10^3uL (1.8-7.7) Lymphocytes # (Auto) 1.1 x10^3/uL (1.0-4.8) Monocytes # (Auto) 1.5 x10^3/uL (0.0-1.1) Eosinophils # (Auto) 0.4 x10^3/uL (0.0-0.7) Basophils # (Auto) 0.0 x10^3/uL (0.0-0.2) Phosphorus Level 3.1 mg/dL (2.6-4.7) Magnesium Level 1.9 mg/dL (1.8-2.4) Laboratory Tests Test 03/13/18 09:25 03/13/18 17:45 03/13/18 23:40 03/14/18 05:00 O2 Saturation 98 % (92-99) Arterial Blood pH 7.49 (7.35-7.45) Arterial Blood pCO2 at Patient Temp 26 mmHg (35-46) Arterial Blood pO2 at Patient Temp 107 mmHg (65-108) Arterial Blood HCO3 19 mmol/L (21-28) Arterial Blood Base Excess -3 mmol/L (-3-3) FiO2 35 White Blood Count 9.5 x10^3/uL (4.0-11.0) 8.4 x10^3/uL (4.0-11.0) 8.1 x10^3/uL (4.0-11.0) Red Blood Count 3.39 x10^6/uL (3.50-5.40) 3.20 x10^6/uL (3.50-5.40) 3.28 x10^6/uL (3.50-5.40) Hemoglobin 10.7 g/dL (12.0-15.5) 10.1 g/dL (12.0-15.5) 10.1 g/dL (12.0-15.5) Hematocrit 30.7 % (36.0-47.0) 28.9 % (36.0-47.0) 29.9 % (36.0-47.0) Mean Corpuscular Volume 91 fL (79-100) 90 fL (79-100) 91 fL (79-100) Mean Corpuscular Hemoglobin 32 pg (25-35) 32 pg (25-35) 31 pg (25-35) Mean Corpuscular Hemoglobin Concent 35 g/dL (31-37) 35 g/dL (31-37) 34 g/dL (31-37) Red Cell Distribution Width 15.2 % (11.5-14.5) 14.8 % (11.5-14.5) 15.3 % (11.5-14.5) Platelet Count 130 x10^3/uL (140-400) 129 x10^3/uL (140-400) 140 x10^3/uL (140-400) Sodium Level 143 mmol/L (136-145) 143 mmol/L (136-145) Potassium Level 3.7 mmol/L (3.5-5.1) 3.4 mmol/L (3.5-5.1) Chloride Level 110 mmol/L (98-107) 110 mmol/L (98-107) Carbon Dioxide Level 26 mmol/L (21-32) 25 mmol/L (21-32) Anion Gap 7 (6-14) 8 (6-14) Blood Urea Nitrogen 9 mg/dL (7-20) 11 mg/dL (7-20) Creatinine 0.5 mg/dL (0.6-1.0) 0.5 mg/dL (0.6-1.0) Estimated GFR (Cockcroft-Gault) 122.0 122.0 BUN/Creatinine Ratio 18 (6-20) Glucose Level 119 mg/dL (70-99) 144 mg/dL (70-99) Calcium Level 8.6 mg/dL (8.5-10.1) 8.2 mg/dL (8.5-10.1) Total Bilirubin 1.2 mg/dL (0.2-1.0) Aspartate Amino Transf (AST/SGOT) 66 U/L (15-37) Alanine Aminotransferase (ALT/SGPT) 37 U/L (14-59) Alkaline Phosphatase 183 U/L (46-116) Total Protein 6.3 g/dL (6.4-8.2) Albumin 2.8 g/dL (3.4-5.0) 2.7 g/dL (3.4-5.0) Albumin/Globulin Ratio 0.8 (1.0-1.7) Neutrophils (%) (Auto) 64 % (31-73) Lymphocytes (%) (Auto) 13 % (24-48) Monocytes (%) (Auto) 18 % (0-9) Eosinophils (%) (Auto) 5 % (0-3) Basophils (%) (Auto) 0 % (0-3) Neutrophils # (Auto) 5.2 x10^3uL (1.8-7.7) Lymphocytes # (Auto) 1.1 x10^3/uL (1.0-4.8) Monocytes # (Auto) 1.5 x10^3/uL (0.0-1.1) Eosinophils # (Auto) 0.4 x10^3/uL (0.0-0.7) Basophils # (Auto) 0.0 x10^3/uL (0.0-0.2) Phosphorus Level 3.1 mg/dL (2.6-4.7) Magnesium Level 1.9 mg/dL (1.8-2.4) Medications Active Scripts Medications Dose Route/Sig Max Daily Dose Days Date Category Prilosec Otc (Omeprazole Magnesium) 20 Mg Tablet. 1 Tab PO DAILY 03/07/18 Reported Simvastatin 20 Mg Tablet 1 Tab PO QHS 03/07/18 Reported Impression . 1. respiratory failure Expected post-op multifactorial EXTUBATED 03/13 2. GI bleed stabilized 3. cirrhosis 4. hx resected hepatocellular carcinoma 5. ENCEPHALOPATHY SUSPECT METABOLIC 6. DYAPHGIA Plan . ADVANCE DIET PER SPEECH SPOKE WITH DECREASE 02 PT/OT CORINA ROBERSON MD Mar 14, 2018 09:27
[2018-03-14] MEDS: PANTOPRAZOLE IV PUSH 40 MG VIAL. IVP SCH (09:37)
[2018-03-14] MEDS: ALBUMIN HUMAN 25% 100 ML IV SCH (09:49)
[2018-03-14] MEDS: POTASSIUM CHL 20MEQ PREMIX 50 ML IV SCH ×2 (10:00→11:08)
[2018-03-14 11:00] LABS: % BANDS 4 % (0-9); % EOS 3 % (0-5); % LYMPHS 7 % (24-48); % MONOS 4 % (0-10); % SEGS 82 % (35-66); PLT ESTIMATE ADEQUATE (ADEQUATE)
--- NOTE | 2018-03-14 11:57 | RAD ---
PORTABLE CHEST 1V History: INTUBATED. Comparison: Previous day. Cardiomediastinal silhouette: Unchanged Lungs: Markings in left lung base with aeration of the diaphragmatic margin, compatible with mild atelectasis. Right lung clear. Pleura: Trace left effusion Pneumothorax: None visualized Support Devices: Right IJ line tip overlies the region of the cavoatrial junction but is obscured by an overlying lead. No ET tube and no feeding tube identified on today's study. Impression: Mild left lung base atelectasis, possible infiltrate, with trace effusion Electronically signed by: Lewis Baer MD (03/14/2018 11:53 AM) [facility]
[2018-03-14] MEDS: TPN PER PHARMACY MC PRN (12:41)
--- NOTE | 2018-03-14 12:44 | NUR ---
Pharmacy TPN Dosing Note S: CARLA ESPINOZA is a 72 year old F Currently receiving Central Continuous TPN started 03/12/18 B:Pertinent PMH: HEPATIC CARCINOMA, MALNUTRITION Height: 5 feet, 4 inches Weight: [id number] kg Current diet: npo LABS: Sodium: 143 Potassium: 3.4 Chloride: 110 Calcium: 8.2 Corrected Calcium: 9.24 Magnesium: 1.9 CO2: 25 SCr: 0.5 Glucose: 144 Albumin: 2.7 AST: 66 (03/13) ALT: 37 (03/13) TPN FORMULA: TPN TYPE: Central Continuous AMINO ACIDS: 70 gm DEXTROSE: 195 gm LIPIDS: 20 gm SODIUM CHLORIDE: - mEq SODIUM ACETATE: 60 mEq SODIUM PHOSPHATE: - mmol POTASSIUM CHLORIDE: 40 mEq POTASSIUM ACETATE: 10 mEq POTASSIUM PHOSPHATE: 25 mmol MAGNESIUM: 15 mEq CALCIUM: 5 mEq INSULIN: 0 units MULTIPLE VITAMIN: 10 ml TRACE ELEMENTS: 1 ml(s) TPN PLAN: -Continue Macros per dietary recommendations (70 g AA, 195 g Dextrose and 20 g lipids) -40 mEq of potassium given outside of TPN this AM for potassium of 3.4. KPhos increased 03/13/18 and KCl only slightly decreased. Chloride remains elevated. Will add 10 mEq of Kacetate to TPN. As have not seen full effects on K increases from yesterdays bag. -1 g Calcium gluconate given outside of TPN. Calcium decreased in TPN yesterday due to increase in KPhos. -Other electroytles within normal limits. -Labs in the am R: Continue TPN addition of 10 mEq potassium acetate. Will monitor electrolytes, glucose, and tolerance to TPN. ABBIE FUNES, [facility], 03/14/18 [id number]
--- NOTE | 2018-03-14 13:12 | PDOC ---
G I PROGRESS NOTE Reason for Follow-up Acute blood loss anemia Subjective Extubated/Passed blood yesterday Physical Exam Lungs BS CV S1 S2 ABD +BS, soft, mildly distended Review of Relevant I have reviewed the following items scottie (where applicable) has been applied. Labs Laboratory Tests Test 03/13/18 05:30 03/13/18 08:00 03/13/18 09:25 03/13/18 17:45 White Blood Count 10.3 x10^3/uL (4.0-11.0) 9.5 x10^3/uL (4.0-11.0) Red Blood Count 3.41 x10^6/uL (3.50-5.40) 3.39 x10^6/uL (3.50-5.40) Hemoglobin 10.9 g/dL (12.0-15.5) 10.7 g/dL (12.0-15.5) Hematocrit 31.1 % (36.0-47.0) 30.7 % (36.0-47.0) Mean Corpuscular Volume 91 fL (79-100) 91 fL (79-100) Mean Corpuscular Hemoglobin 32 pg (25-35) 32 pg (25-35) Mean Corpuscular Hemoglobin Concent 35 g/dL (31-37) 35 g/dL (31-37) Red Cell Distribution Width 15.3 % (11.5-14.5) 15.2 % (11.5-14.5) Platelet Count 110 x10^3/uL (140-400) 130 x10^3/uL (140-400) Neutrophils (%) (Auto) 71 % (31-73) Lymphocytes (%) (Auto) 12 % (24-48) Monocytes (%) (Auto) 14 % (0-9) Eosinophils (%) (Auto) 3 % (0-3) Basophils (%) (Auto) 1 % (0-3) Neutrophils # (Auto) 7.3 x10^3uL (1.8-7.7) Lymphocytes # (Auto) 1.2 x10^3/uL (1.0-4.8) Monocytes # (Auto) 1.5 x10^3/uL (0.0-1.1) Eosinophils # (Auto) 0.3 x10^3/uL (0.0-0.7) Basophils # (Auto) 0.1 x10^3/uL (0.0-0.2) Sodium Level 139 mmol/L (136-145) 143 mmol/L (136-145) Potassium Level 3.8 mmol/L (3.5-5.1) 3.7 mmol/L (3.5-5.1) Chloride Level 109 mmol/L (98-107) 110 mmol/L (98-107) Carbon Dioxide Level 23 mmol/L (21-32) 26 mmol/L (21-32) Anion Gap 7 (6-14) 7 (6-14) Blood Urea Nitrogen 11 mg/dL (7-20) 9 mg/dL (7-20) Creatinine 0.4 mg/dL (0.6-1.0) 0.5 mg/dL (0.6-1.0) Estimated GFR (Cockcroft-Gault) 157.8 122.0 Glucose Level 157 mg/dL (70-99) 119 mg/dL (70-99) Calcium Level 7.8 mg/dL (8.5-10.1) 8.6 mg/dL (8.5-10.1) Phosphorus Level 2.2 mg/dL (2.6-4.7) Magnesium Level 1.7 mg/dL (1.8-2.4) Albumin 1.9 g/dL (3.4-5.0) 2.8 g/dL (3.4-5.0) O2 Saturation 98 % (92-99) 98 % (92-99) Arterial Blood pH 7.49 (7.35-7.45) 7.49 (7.35-7.45) Arterial Blood pCO2 at Patient Temp 29 mmHg (35-46) 26 mmHg (35-46) Arterial Blood pO2 at Patient Temp 111 mmHg (65-108) 107 mmHg (65-108) Arterial Blood HCO3 22 mmol/L (21-28) 19 mmol/L (21-28) Arterial Blood Base Excess -1 mmol/L (-3-3) -3 mmol/L (-3-3) FiO2 35 35 BUN/Creatinine Ratio 18 (6-20) Total Bilirubin 1.2 mg/dL (0.2-1.0) Aspartate Amino Transf (AST/SGOT) 66 U/L (15-37) Alanine Aminotransferase (ALT/SGPT) 37 U/L (14-59) Alkaline Phosphatase 183 U/L (46-116) Total Protein 6.3 g/dL (6.4-8.2) Albumin/Globulin Ratio 0.8 (1.0-1.7) Test 03/13/18 23:40 03/14/18 05:00 White Blood Count 8.4 x10^3/uL (4.0-11.0) 8.1 x10^3/uL (4.0-11.0) Red Blood Count 3.20 x10^6/uL (3.50-5.40) 3.28 x10^6/uL (3.50-5.40) Hemoglobin 10.1 g/dL (12.0-15.5) 10.1 g/dL (12.0-15.5) Hematocrit 28.9 % (36.0-47.0) 29.9 % (36.0-47.0) Mean Corpuscular Volume 90 fL (79-100) 91 fL (79-100) Mean Corpuscular Hemoglobin 32 pg (25-35) 31 pg (25-35) Mean Corpuscular Hemoglobin Concent 35 g/dL (31-37) 34 g/dL (31-37) Red Cell Distribution Width 14.8 % (11.5-14.5) 15.3 % (11.5-14.5) Platelet Count 129 x10^3/uL (140-400) 140 x10^3/uL (140-400) Neutrophils (%) (Auto) 64 % (31-73) Lymphocytes (%) (Auto) 13 % (24-48) Monocytes (%) (Auto) 18 % (0-9) Eosinophils (%) (Auto) 5 % (0-3) Basophils (%) (Auto) 0 % (0-3) Neutrophils # (Auto) 5.2 x10^3uL (1.8-7.7) Lymphocytes # (Auto) 1.1 x10^3/uL (1.0-4.8) Monocytes # (Auto) 1.5 x10^3/uL (0.0-1.1) Eosinophils # (Auto) 0.4 x10^3/uL (0.0-0.7) Basophils # (Auto) 0.0 x10^3/uL (0.0-0.2) Segmented Neutrophils % 82 % (35-66) Band Neutrophils % 4 % (0-9) Lymphocytes % 7 % (24-48) Monocytes % 4 % (0-10) Eosinophils % 3 % (0-5) Platelet Estimate Adequate (ADEQUATE) Sodium Level 143 mmol/L (136-145) Potassium Level 3.4 mmol/L (3.5-5.1) Chloride Level 110 mmol/L (98-107) Carbon Dioxide Level 25 mmol/L (21-32) Anion Gap 8 (6-14) Blood Urea Nitrogen 11 mg/dL (7-20) Creatinine 0.5 mg/dL (0.6-1.0) Estimated GFR (Cockcroft-Gault) 122.0 Glucose Level 144 mg/dL (70-99) Calcium Level 8.2 mg/dL (8.5-10.1) Phosphorus Level 3.1 mg/dL (2.6-4.7) Magnesium Level 1.9 mg/dL (1.8-2.4) Albumin 2.7 g/dL (3.4-5.0) Laboratory Tests Test 03/13/18 17:45 03/13/18 23:40 03/14/18 05:00 White Blood Count 9.5 x10^3/uL (4.0-11.0) 8.4 x10^3/uL (4.0-11.0) 8.1 x10^3/uL (4.0-11.0) Red Blood Count 3.39 x10^6/uL (3.50-5.40) 3.20 x10^6/uL (3.50-5.40) 3.28 x10^6/uL (3.50-5.40) Hemoglobin 10.7 g/dL (12.0-15.5) 10.1 g/dL (12.0-15.5) 10.1 g/dL (12.0-15.5) Hematocrit 30.7 % (36.0-47.0) 28.9 % (36.0-47.0) 29.9 % (36.0-47.0) Mean Corpuscular Volume 91 fL (79-100) 90 fL (79-100) 91 fL (79-100) Mean Corpuscular Hemoglobin 32 pg (25-35) 32 pg (25-35) 31 pg (25-35) Mean Corpuscular Hemoglobin Concent 35 g/dL (31-37) 35 g/dL (31-37) 34 g/dL (31-37) Red Cell Distribution Width 15.2 % (11.5-14.5) 14.8 % (11.5-14.5) 15.3 % (11.5-14.5) Platelet Count 130 x10^3/uL (140-400) 129 x10^3/uL (140-400) 140 x10^3/uL (140-400) Sodium Level 143 mmol/L (136-145) 143 mmol/L (136-145) Potassium Level 3.7 mmol/L (3.5-5.1) 3.4 mmol/L (3.5-5.1) Chloride Level 110 mmol/L (98-107) 110 mmol/L (98-107) Carbon Dioxide Level 26 mmol/L (21-32) 25 mmol/L (21-32) Anion Gap 7 (6-14) 8 (6-14) Blood Urea Nitrogen 9 mg/dL (7-20) 11 mg/dL (7-20) Creatinine 0.5 mg/dL (0.6-1.0) 0.5 mg/dL (0.6-1.0) Estimated GFR (Cockcroft-Gault) 122.0 122.0 BUN/Creatinine Ratio 18 (6-20) Glucose Level 119 mg/dL (70-99) 144 mg/dL (70-99) Calcium Level 8.6 mg/dL (8.5-10.1) 8.2 mg/dL (8.5-10.1) Total Bilirubin 1.2 mg/dL (0.2-1.0) Aspartate Amino Transf (AST/SGOT) 66 U/L (15-37) Alanine Aminotransferase (ALT/SGPT) 37 U/L (14-59) Alkaline Phosphatase 183 U/L (46-116) Total Protein 6.3 g/dL (6.4-8.2) Albumin 2.8 g/dL (3.4-5.0) 2.7 g/dL (3.4-5.0) Albumin/Globulin Ratio 0.8 (1.0-1.7) Neutrophils (%) (Auto) 64 % (31-73) Lymphocytes (%) (Auto) 13 % (24-48) Monocytes (%) (Auto) 18 % (0-9) Eosinophils (%) (Auto) 5 % (0-3) Basophils (%) (Auto) 0 % (0-3) Neutrophils # (Auto) 5.2 x10^3uL (1.8-7.7) Lymphocytes # (Auto) 1.1 x10^3/uL (1.0-4.8) Monocytes # (Auto) 1.5 x10^3/uL (0.0-1.1) Eosinophils # (Auto) 0.4 x10^3/uL (0.0-0.7) Basophils # (Auto) 0.0 x10^3/uL (0.0-0.2) Segmented Neutrophils % 82 % (35-66) Band Neutrophils % 4 % (0-9) Lymphocytes % 7 % (24-48) Monocytes % 4 % (0-10) Eosinophils % 3 % (0-5) Platelet Estimate Adequate (ADEQUATE) Phosphorus Level 3.1 mg/dL (2.6-4.7) Magnesium Level 1.9 mg/dL (1.8-2.4) Microbiology 03/09/18 Urine Culture - Final, Complete 03/09/18 Urine Culture Result 1 (JEFFRY) - Final, Complete Medications Current Medications Sodium Chloride 500 ml @ 500 mls/hr Q1H IV Last administered on 03/07/18at 18: 29; Start 03/07/18 at 18:30; Stop 03/07/18 at 18:42; Status DC Pantoprazole Sodium (PROTONIX VIAL for IV PUSH) 80 mg 1X ONCE IVP Last administered on 03/07/18at 19:00; Start 03/07/18 at 18:30; Stop 03/07/18 at 18 :32; Status DC Octreotide Acetate 500 mcg/ Sodium Chloride 101 ml @ 5.05 mls/hr CONT PRN IV SEE I/O RECORD Last administered on 03/09/18at 10:38; Start 03/07/18 at 19:30; Stop 03/09/18 at 11:47; Status DC Ondansetron HCl (Zofran) 4 mg PRN Q8HRS PRN IV NAUSEA/VOMITING; Start at 19:15; Stop 03/08/18 at 19:14; Status DC Iohexol (Omnipaque 300 Mg/ml) 75 ml 1X ONCE IV Last administered on at 20:32; Start 03/07/18 at 19:15; Stop 03/07/18 at 19:16; Status DC Info (CONTRAST GIVEN -- Rx MONITORING) 1 each PRN DAILY PRN MC SEE COMMENTS; Start 03/07/18 at 19:15; Stop 03/09/18 at 19:14; Status DC Propofol 20 ml @ As Directed STK-MED ONCE IV ; Start 03/07/18 at 22:37; Stop 03/07/18 at 22:38; Status DC Pantoprazole Sodium 80 mg/ Sodium Chloride 100 ml @ 10 mls/hr Q10H IV Last administered on 03/10/18at 22:46; Start 03/07/18 at 23:00; Stop 03/11/18 at 11:10 ; Status DC Ringer's Solution 1,000 ml @ 200 mls/hr Q5H IV Last administered on at 20:41; Start 03/07/18 at 23:15; Stop 03/09/18 at 10:58; Status DC Dopamine HCl/ Dextrose 250 ml @ 4.461 mls/ hr CONT PRN IV SEE I/O RECORD; Start 03/08/18 at 09:30 Lidocaine/Sodium Bicarbonate (Buffered Lidocaine 1%) 3 ml STK-MED ONCE .ROUTE ; Start 03/08/18 at 11:47; Stop 03/08/18 at 11:48; Status DC Iohexol (Omnipaque 300 Mg/ml) 100 ml STK-MED ONCE .ROUTE ; Start 03/08/18 at 11 :47; Stop 03/08/18 at 11:48; Status DC Heparin Sodium/ Sodium Chloride 1,000 ml @ As Directed STK-MED ONCE .ROUTE ; Start 03/08/18 at 11:47; Stop 03/08/18 at 11:48; Status DC Midazolam HCl (Versed) 2 mg STK-MED ONCE .ROUTE ; Start 03/08/18 at 12:06; Stop 03/08/18 at 12:07; Status DC Fentanyl Citrate (Fentanyl 2ml Vial) 100 mcg STK-MED ONCE .ROUTE ; Start at 12:06; Stop 03/08/18 at 12:07; Status DC Heparin Sodium/ Sodium Chloride (HEPARIN for ARTERIAL LINE FLUSH) 1,000 unit 1X ONCE IART Last administered on 03/08/18at 12:30; Start 03/08/18 at 12:30; Stop 03/08/18 at 12:31; Status DC Lidocaine/Sodium Bicarbonate (Buffered Lidocaine 1%) 3 ml 1X ONCE IJ Last administered on 03/08/18at 12:15; Start 03/08/18 at 12:15; Stop 03/08/18 at 12 :21; Status DC Midazolam HCl (Versed) 2 mg 1X ONCE IV ; Start 03/08/18 at 12:15; Stop at 12:21; Status DC Fentanyl Citrate (Fentanyl 2ml Vial) 100 mcg 1X ONCE IV Last administered on 03/08/18at 12:15; Start 03/08/18 at 12:15; Stop 03/08/18 at 12:21; Status DC Iohexol (Omnipaque 300 Mg/ml) 100 ml 1X ONCE IART Last administered on at 12:15; Start 03/08/18 at 12:15; Stop 03/08/18 at 12:21; Status DC Phenylephrine HCl (Wander-Synephrine Inj) 10 mg STK-MED ONCE .ROUTE ; Start at 13:25; Stop 03/08/18 at 13:26; Status DC Succinylcholine Chloride (Anectine) 200 mg STK-MED ONCE .ROUTE ; Start at 14:55; Stop 03/08/18 at 14:56; Status DC Propofol 20 ml @ As Directed STK-MED ONCE IV ; Start 03/08/18 at 14:55; Stop 03/08/18 at 14:56; Status DC Ketamine HCl (Ketamine) 50 mg STK-MED ONCE .ROUTE ; Start 03/08/18 at 14:55; Stop 03/08/18 at 14:57; Status DC Dexamethasone Sodium Phosphate (Decadron) 20 mg STK-MED ONCE .ROUTE ; Start at 14:56; Stop 03/08/18 at 14:58; Status DC Ondansetron HCl (Zofran) 4 mg STK-MED ONCE .ROUTE ; Start 03/08/18 at 14:57; Stop 03/08/18 at 14:58; Status DC Lidocaine HCl (Lidocaine Pf 2% Vial) 5 ml STK-MED ONCE .ROUTE ; Start 03/08/18 at 14:57; Stop 03/08/18 at 14:58; Status DC Propofol 20 ml @ As Directed STK-MED ONCE IV ; Start 03/08/18 at 14:57; Stop 03/08/18 at 14:58; Status DC Fentanyl Citrate (Fentanyl 5ml Vial) 250 mcg STK-MED ONCE .ROUTE ; Start at 15:54; Stop 03/08/18 at 15:55; Status DC Rocuronium [place] (Zemuron) 100 mg STK-MED ONCE .ROUTE ; Start 03/08/18 at 15: 55; Stop 03/08/18 at 15:57; Status DC Cefazolin Sodium 100 ml @ As Directed STK-MED ONCE IV ; Start 03/08/18 at 15: 57; Stop 03/08/18 at 15:59; Status DC Cellulose (Surgicel Hemostat 4x8) 1 each STK-MED ONCE .ROUTE Last administered on 03/08/18at 15:53; Start 03/08/18 at 16:27; Stop 03/08/18 at 16:28; Status DC Cellulose (Surgicel Hemostat 2x3) 1 each STK-MED ONCE .ROUTE Last administered on 03/08/18at 15:53; Start 03/08/18 at 16:42; Stop 03/08/18 at 16:44; Status DC Cellulose (Surgicel Hemostat 2x14) 1 each STK-MED ONCE .ROUTE ; Start 03/08/18 at 16:42; Stop 03/08/18 at 16:44; Status DC Cellulose (Surgicel Hemostat 4x8) 1 each STK-MED ONCE .ROUTE Last administered on 03/08/18at 15:53; Start 03/08/18 at 16:42; Stop 03/08/18 at 16:44; Status DC Calcium Chloride (Calcium Chloride) 1,000 mg STK-MED ONCE .ROUTE ; Start at 17:03; Stop 03/08/18 at 17:04; Status DC Calcium Chloride (Calcium Chloride) 1,000 mg STK-MED ONCE .ROUTE ; Start at 17:03; Stop 03/08/18 at 17:04; Status DC Sodium Bicarbonate (Sodium Bicarb Adult 8.4% Syr) 50 meq STK-MED ONCE .ROUTE ; Start 03/08/18 at 17:03; Stop 03/08/18 at 17:04; Status DC Sodium Bicarbonate (Sodium Bicarb Adult 8.4% Syr) 50 meq STK-MED ONCE .ROUTE ; Start 03/08/18 at 17:03; Stop 03/08/18 at 17:04; Status DC Epinephrine HCl (EPINEPHrine SYRINGE) 1 mg STK-MED ONCE .ROUTE ; Start at 17:03; Stop 03/08/18 at 17:04; Status DC Albumin Human 500 ml @ As Directed STK-MED ONCE IV ; Start 03/08/18 at 17:03; Stop 03/08/18 at 17:04; Status DC Sodium Bicarbonate (Sodium Bicarb Adult 8.4% Syr) 50 meq STK-MED ONCE .ROUTE ; Start 03/08/18 at 17:07; Stop 03/08/18 at 17:08; Status DC Sodium Bicarbonate (Sodium Bicarb Adult 8.4% Syr) 50 meq STK-MED ONCE .ROUTE ; Start 03/08/18 at 17:07; Stop 03/08/18 at 17:08; Status DC Cellulose (Surgicel Hemostat 4x8) 1 each STK-MED ONCE TP Last administered on 03/08/18at 15:53; Start 03/08/18 at 15:53; Stop 03/08/18 at 17:40; Status DC Sodium Bicarbonate (Sodium Bicarb Adult 8.4% Syr) 50 meq STK-MED ONCE .ROUTE ; Start 03/08/18 at 17:35; Stop 03/08/18 at 17:37; Status DC Calcium Chloride (Calcium Chloride) 1,000 mg STK-MED ONCE .ROUTE ; Start at 17:35; Stop 03/08/18 at 17:37; Status DC Albumin Human 500 ml @ As Directed STK-MED ONCE IV ; Start 03/08/18 at 17:41; Stop 03/08/18 at 17:43; Status DC Norepinephrine Bitartrate 250 ml @ 1.875 mls/ hr 1X ONCE IV Last administered on 03/08/18at 21:00; Start 03/08/18 at 17:45; Stop 03/09/18 at 08 :10; Status DC Vasopressin 40 unit/Dextrose 102 ml @ 6 mls/hr 1X ONCE IV Last administered on 03/08/18at 20:41; Start 03/08/18 at 18:00; Stop 03/09/18 at 10:59; Status DC Calcium Chloride (Calcium Chloride) 1,000 mg STK-MED ONCE .ROUTE ; Start at 17:57; Stop 03/08/18 at 17:59; Status DC Sodium Bicarbonate (Sodium Bicarb Adult 8.4% Syr) 50 meq STK-MED ONCE .ROUTE ; Start 03/08/18 at 18:04; Stop 03/08/18 at 18:06; Status DC Sodium Bicarbonate (Sodium Bicarb Adult 8.4% Syr) 50 meq STK-MED ONCE .ROUTE ; Start 03/08/18 at 18:05; Stop 03/08/18 at 18:06; Status DC Sodium Bicarbonate (Sodium Bicarb Adult 8.4% Syr) 50 meq STK-MED ONCE .ROUTE ; Start 03/08/18 at 18:07; Stop 03/08/18 at 18:08; Status DC Sodium Bicarbonate (Sodium Bicarb Adult 8.4% Syr) 50 meq STK-MED ONCE .ROUTE ; Start 03/08/18 at 18:07; Stop 03/08/18 at 18:08; Status DC Epinephrine HCl (EPINEPHrine SYRINGE) 1 mg STK-MED ONCE .ROUTE ; Start at 18:40; Stop 03/08/18 at 18:41; Status DC Prochlorperazine Edisylate (Compazine) 10 mg STK-MED ONCE .ROUTE ; Start at 18:42; Stop 03/08/18 at 18:44; Status DC Fentanyl Citrate (Fentanyl 2ml Vial) 100 mcg STK-MED ONCE .ROUTE ; Start at 18:43; Stop 03/08/18 at 18:44; Status DC Sevoflurane (Ultane) 90 ml STK-MED ONCE IH ; Start 03/08/18 at 18:48; Stop at 18:49; Status DC Cellulose (Surgicel Hemostat 2x3) 1 each STK-MED ONCE TP Last administered on 03/08/18at 15:55; Start 03/08/18 at 15:55; Stop 03/08/18 at 19:04; Status DC Cellulose (Surgicel Hemostat 2x3) 1 each STK-MED ONCE TP Last administered on 03/08/18at 15:53; Start 03/08/18 at 15:53; Stop 03/08/18 at 19:04; Status DC Propofol 100 ml @ As Directed STK-MED ONCE IV ; Start 03/08/18 at 19:56; Stop 03/08/18 at 19:58; Status DC Famotidine (Pepcid) 20 mg BID PO ; Start 03/08/18 at 21:00; Stop 03/09/18 at 08:11; Status DC Sodium Chloride (Normal Saline Flush) 3 ml QSHIFT PRN IV AFTER MEDS AND BLOOD DRAWS; Start 03/08/18 at 20:45; Status Cancel Morphine Sulfate (Morphine Sulfate) 1 mg PRN Q1HR PRN IV PAIN Last administered on 03/08/18at 21:12; Start 03/08/18 at 20:45; Stop 03/10/18 at 18: 45; Status DC Ondansetron HCl (Zofran) 4 mg PRN Q6HRS PRN IV NAUESA, 1ST CHOICE; Start 03/08 at 20:45 Fentanyl Citrate 30 ml @ 0 mls/hr CONT PRN IV SEE PROTOCOL Last administered on 03/09/18at 23:16; Start 03/08/18 at 22:15 Fentanyl Citrate (Fentanyl 2ml Vial) 25 mcg PRN Q1HR PRN IV SEE COMMENTS; Start 03/08/18 at 22:15; Stop 03/10/18 at 18:45; Status DC Fentanyl Citrate (Fentanyl 2ml Vial) 50 mcg PRN Q1HR PRN IV SEE COMMENTS Last administered on 03/08/18at 22:41; Start 03/08/18 at 22:15; Stop 03/12/18 at 16: 26; Status DC Chlorhexidine Gluconate (Peridex) 15 ml BID MM Last administered on 03/13/18at 09 :00; Start 03/09/18 at 09:00; Stop 03/13/18 at 12:19; Status DC Midazolam HCl 100 ml @ 0 mls/hr CONT PRN IV SEE PROTOCOL Last administered on 03/09/18at 21:43; Start 03/08/18 at 22:15; Stop 03/10/18 at 18:45; Status DC Factor IX (Pha) (Novoseven Rt) 1 mg 1X ONCE IV Last administered on at 01:09; Start 03/09/18 at 01:00; Stop 03/09/18 at 01:01; Status DC Lorazepam (Ativan) 2 mg STK-MED ONCE .ROUTE ; Start 03/09/18 at 01:15; Stop at 01:16; Status DC Norepinephrine Bitartrate 250 ml @ 1.875 mls/ hr CONT PRN IV SEE I/O RECORD Last administered on 03/09/18at 17:41; Start 03/09/18 at 01:45 Cefazolin Sodium/ Dextrose 50 ml @ 100 mls/hr 1X PREOP PRN IV PRIOR TO PROCEDURE Last administered on 03/09/18at 02:00; Start 03/09/18 at 02:00; Stop 03/10/18 at 01:59; Status DC Rocuronium [place] (Zemuron) 100 mg STK-MED ONCE .ROUTE ; Start 03/09/18 at 01: 57; Stop 03/09/18 at 01:59; Status DC Fentanyl Citrate (Fentanyl 5ml Vial) 250 mcg STK-MED ONCE .ROUTE ; Start at 02:13; Stop 03/09/18 at 02:14; Status DC Cellulose (Surgicel Hemostat 2x3) 1 each STK-MED ONCE .ROUTE ; Start 03/09/18 at 02:23; Stop 03/09/18 at 02:25; Status DC Cellulose (Surgicel Hemostat 2x14) 1 each STK-MED ONCE .ROUTE ; Start 03/09/18 at 02:23; Stop 03/09/18 at 02:25; Status DC Cellulose (Surgicel Hemostat 4x8) 1 each STK-MED ONCE .ROUTE Last administered on 03/09/18at 02:04; Start 03/09/18 at 02:23; Stop 03/09/18 at 02:25; Status DC Sodium Chloride (Normal Saline Flush) 3 ml QSHIFT PRN IV AFTER MEDS AND BLOOD DRAWS; Start 03/09/18 at 03:30 Cellulose (Surgicel Hemostat 4x8) 1 each STK-MED ONCE TP Last administered on 03/09/18at 02:04; Start 03/09/18 at 02:04; Stop 03/09/18 at 03:20; Status DC Cellulose (Surgicel Hemostat 4x8) 1 each STK-MED ONCE TP Last administered on 03/09/18at 02:04; Start 03/09/18 at 02:04; Stop 03/09/18 at 03:20; Status DC Sodium Bicarbonate (Sodium Bicarb Adult 8.4% Syr) 150 meq STK-MED ONCE .ROUTE ; Start 03/08/18 at 10:00; Stop 03/09/18 at 10:30; Status DC Dopamine HCl/ Dextrose (DOPamine 400MG/ 250ML PREMIX) 400 mg STK-MED ONCE IV ; Start 03/08/18 at 10:00; Stop 03/09/18 at 10:30; Status DC Potassium Chloride/Dextrose 1,000 ml @ 100 mls/hr Q10H IV Last administered on 03/09/18at 11:22; Start 03/09/18 at 11:00; Stop 03/09/18 at 20:59; Status DC Magnesium Sulfate/ Dextrose 100 ml @ 25 mls/hr 1X ONCE IV Last administered on 03/09/18at 13:45; Start 03/09/18 at 12:45; Stop 03/09/18 at 16:44; Status DC Potassium Chloride/Water 50 ml @ 50 mls/hr 1X ONCE IV Last administered on at 13:43; Start 03/09/18 at 12:45; Stop 03/09/18 at 13:44; Status DC Magnesium Sulfate 50 ml @ 25 mls/hr PRN DAILY PRN IV for Mag < 1.7 on am labs Last administered on 03/10/18at 06:17; Start 03/09/18 at 13:45 Sodium Chloride 500 ml @ 500 mls/hr QIDPRN PRN IV U/O <30 cc/hr Last administered on 03/10/18at 09:00; Start 03/09/18 at 19:45 Info (Tpn Per Pharmacy) 1 each PRN DAILY PRN MC SEE COMMENTS; Start 03/10/18 at 09:00; Stop 03/10/18 at 12:42; Status DC Potassium Phosphate 13.6 mmol/Dextrose 104.5333 ml @ 52.267 m... Q2H IV Last administered on 03/10/18 10:34; Start 03/10/18 at 10:00; Stop 03/10/18 at 11:59; Status DC Amino Acids/ Glycerin/ Electrolytes 1,000 ml @ 100 mls/hr Q10H IV Last administered on 03/11/18at 21:42; Start 03/10/18 at 13:00; Stop 03/12/18 at 21:59; Status DC Ringer's Solution 500 ml @ 500 mls/hr 1X ONCE IV Last administered on at 18:55; Start 03/10/18 at 19:45; Stop 03/10/18 at 20:44; Status DC Dextrose (Dextrose 50%-Water Syringe) 12.5 gm PRN Q15MIN PRN IV SEE COMMENTS; Start 03/11/18 at 07:00 Ringer's Solution 500 ml @ 500 mls/hr Q1H PRN IV FLUID LOSS Last administered on 03/13/18 00:39; Start 03/11/18 at 07:00 Pantoprazole Sodium (PROTONIX VIAL for IV PUSH) 40 mg DAILY IVP Last administered on 03/14/18 09:37; Start 03/12/18 at 09:00 Potassium Phosphate 13.6 mmol/Dextrose 104.5333 ml @ 52.267 m... Q2H IV Last administered on 03/11/18 21:42; Start 03/11/18 at 14:00; Stop 03/11/18 at 19:59; Status DC Info (Tpn Per Pharmacy) 1 each PRN DAILY PRN MC SEE COMMENTS Last administered on 03/14/18 12:41; Start 03/12/18 at 09:30 Potassium Phosphate 13.6 mmol/Sodium Chloride 104.5333 ml @ 52.267 m... Q2H IV Last administered on 03/12/18 13:30; Start 03/12/18 at 09:30; Stop 03/12/18 at 15:29; Status DC Albumin Human 100 ml @ 100 mls/hr TID IV Last administered on 03/14/18at 09:49; Start 03/12/18 at 14:00; Stop 03/14/18 at 09:59; Status DC Info (Tpn Per Pharmacy) 1 each PRN DAILY PRN MC SEE COMMENTS; Start 03/12/18 at 11:00; Status UNV Sodium Acetate 90 meq/Potassium Chloride 50 meq/ Potassium Phosphate 13.6 mmol/ Magnesium Sulfate 10 meq/ Calcium Gluconate 10 meq/ Multivitamins 10 ml/Chromium / Copper/Manganese/ Seleni/Zn 1 ml/ Total Parenteral Nutrition/Amino Acids/ Dextrose/ Fat Emulsion Intravenous 1,512 ml @ 63 mls/hr TPN CONT IV ; Start at 22:00; Stop 03/12/18 at 22:00; Status DC Sodium Acetate 60 meq/Potassium Chloride 50 meq/ Potassium Phosphate 13.6 mmol/ Magnesium Sulfate 10 meq/ Calcium Gluconate 10 meq/ Multivitamins 10 ml/Chromium / Copper/Manganese/ Seleni/Zn 1 ml/ Total Parenteral Nutrition/Amino Acids/ Dextrose/ Fat Emulsion Intravenous 1,512 ml @ 63 mls/hr TPN CONT IV Last administered on 03/12/18at 21:12; Start 03/12/18 at 22:00; Stop 03/13/18 at 21:59; Status DC Magnesium Sulfate 50 ml @ 25 mls/hr 1X ONCE IV Last administered on 03/13/18at 09:30; Start 03/13/18 at 09:30; Stop 03/13/18 at 11:29; Status DC Epinephrine (S2 Racepinephrine) 0.5 ml 1X ONCE NEB Last administered on at 11:30; Start 03/13/18 at 11:30; Stop 03/13/18 at 11:31; Status DC Potassium Phosphate 13.6 mmol/Sodium Chloride 104.5333 ml @ 52.267 m... Q2H IV Last administered on 03/13/18at 15:00; Start 03/13/18 at 13:00; Stop 03/13/18 at 16:59; Status DC Sodium Acetate 60 meq/Potassium Chloride 40 meq/ Potassium Phosphate 25 mmol/ Magnesium Sulfate 15 meq/Calcium Gluconate 5 meq/ Multivitamins 10 ml/Chromium/ Copper/Manganese/ Seleni/Zn 1 ml/ Total Parenteral Nutrition/Amino Acids/ Dextrose/ Fat Emulsion Intravenous 1,512 ml @ 63 mls/hr TPN CONT IV Last administered on 03/13/18at 21:16; Start 03/13/18 at 22:00; Stop 03/14/18 at 21:59 Iohexol (Omnipaque 300 Mg/ml) 75 ml 1X ONCE IV ; Start 03/13/18 at 12:45; Stop 03/13/18 at 12:46; Status DC Info (CONTRAST GIVEN -- Rx MONITORING) 1 each PRN DAILY PRN MC SEE COMMENTS; Start 03/13/18 at 12:45; Stop 03/15/18 at 12:44 Albuterol/ Ipratropium (Duoneb) 3 ml RTQID NEB Last administered on 03/14/18at 12 :57; Start 03/13/18 at 18:30 Fentanyl Citrate (Fentanyl 2ml Vial) 50 mcg PRN Q2HR PRN IV PAIN Last administered on 03/14/18at 12:37; Start 03/14/18 at 08:15 Potassium Chloride/Sodium Chloride 1,000 ml @ 75 mls/hr 1X ONCE IV ; Start 03/14/18 at 08:15; Stop 03/14/18 at 21:34; Status UNV Calcium Gluconate 1000 mg/Dextrose 110 ml @ 220 mls/hr 1X ONCE IV Last administered on 03/14/18at 09:36; Start 03/14/18 at 09:00; Stop 03/14/18 at 09:29; Status DC Iohexol (Omnipaque 300 Mg/ml) 75 ml 1X ONCE IV ; Start 03/14/18 at 08:30; Stop 03/14/18 at 08:31; Status DC Potassium Chloride/Water 50 ml @ 50 mls/hr Q1H IV Last administered on at 10:00; Start 03/14/18 at 09:00; Stop 03/14/18 at 10:59; Status DC Sodium Acetate 60 meq/Potassium Chloride 40 meq/ Potassium Acetate 10 meq/ Potassium Phosphate 25 mmol/ Magnesium Sulfate 15 meq/Calcium Gluconate 5 meq/ Multivitamins 10 ml/Chromium/ Copper/Manganese/ Seleni/Zn 1 ml/ Total Parenteral Nutrition/Amino Acids/Dextrose/ Fat Emulsion Intravenous 1,512 ml @ 63 mls/hr TPN CONT IV ; Start 03/14/18 at 22:00; Stop 03/15/18 at 21:59 Active Scripts Active Reported Prilosec Otc (Omeprazole Magnesium) 20 Mg Tablet.dr 1 Tab PO DAILY Simvastatin 20 Mg Tablet 1 Tab PO QHS Vitals/I & O Vital Sign - Last 24 Hours 03/13/18 03/13/18 03/13/18 03/13/18 14:00 15:00 16:00 16:00 Temp 99.0 99.0 Pulse 90 83 90 Resp 14 16 16 B/P (MAP) 136/68 (90) 130/58 (82) 127/68 (87) Pulse Ox 97 98 98 O2 Delivery Nasal Cannula Nasal Cannula Nasal Cannula Nasal Cannula O2 Flow Rate 2.0 2.0 2.0 2.0 03/13/18 03/13/18 03/13/18 03/13/18 17:00 18:00 19:00 20:00 Temp 98.6 98.6 Pulse 88 83 81 Resp 16 16 16 B/P (MAP) 127/53 (77) 122/51 (74) 125/52 (76) Pulse Ox 97 98 97 O2 Delivery Nasal Cannula Nasal Cannula Nasal Cannula Nasal Cannula O2 Flow Rate 2.0 2.0 2.0 2.0 03/13/18 03/13/18 03/13/18 03/13/18 20:00 20:38 21:00 22:00 Pulse 82 86 88 Resp 17 13 13 B/P (MAP) 121/52 (75) 140/60 (86) 121/50 (73) Pulse Ox 97 98 97 98 O2 Delivery Nasal Cannula Nasal Cannula Nasal Cannula Nasal Cannula O2 Flow Rate 2.0 2.0 2.0 2.0 03/13/18 03/14/18 03/14/18 03/14/18 23:00 00:00 00:10 01:00 Temp 99.3 99.3 Pulse 86 84 76 Resp 14 14 17 B/P (MAP) 116/54 (74) 114/53 (73) 112/52 (72) Pulse Ox 97 97 97 O2 Delivery Nasal Cannula Nasal Cannula Nasal Cannula Nasal Cannula O2 Flow Rate 2.0 2.0 2.0 2.0 03/14/18 03/14/18 03/14/18 03/14/18 02:00 03:00 03:50 04:00 Temp 99.3 99.3 Pulse 74 84 82 Resp 16 14 14 B/P (MAP) 103/53 (70) 110/54 (72) 104/57 (73) Pulse Ox 97 98 98 O2 Delivery Nasal Cannula Nasal Cannula Nasal Cannula Nasal Cannula O2 Flow Rate 2.0 2.0 2.0 2.0 03/14/18 03/14/18 03/14/18 03/14/18 05:00 06:00 07:00 08:00 Pulse 74 74 74 Resp 17 16 16 B/P (MAP) 108/53 (71) 107/57 (74) 114/51 (72) Pulse Ox 98 98 98 O2 Delivery Nasal Cannula Nasal Cannula Nasal Cannula Nasal Cannula O2 Flow Rate 2.0 2.0 2.0 2.0 03/14/18 03/14/18 03/14/18 03/14/18 08:00 08:34 08:44 09:00 Pulse 72 74 Resp 16 16 16 B/P (MAP) 111/54 (73) 112/51 (71) Pulse Ox 98 98 98 O2 Delivery Nasal Cannula Nasal Cannula Nasal Cannula O2 Flow Rate 2.0 2.0 2.0 03/14/18 03/14/18 10:00 12:58 Pulse 74 Resp 14 B/P (MAP) 109/52 (71) Pulse Ox 98 98 O2 Delivery Nasal Cannula Room Air O2 Flow Rate 2.0 Intake and Output 03/13/18 03/13/18 03/14/18 15:01 23:01 07:01 Intake Total 200 ml 701 ml Output Total 3555 ml 1845 ml 985 ml Balance -3355 ml -1144 ml -985 ml Problem List Problems Medical Problems: (1) Hypotension Status: Acute Assessment S/P splectomy- with gastric variceal bleed, Hg stable, speech to re-evaluate prior to diet being advanced, CPM CAMILA MO MD Mar 14, 2018 13:12
--- NOTE | 2018-03-14 15:43 | NUR ---
Nursing Note Patient assisted into chair by PT, able to tolerate sitting up for approximately 1 hour. RN assisted patient to commode and then back to bed. Patient states that she is willing to try sitting in chair again later today.
--- NOTE | 2018-03-14 17:32 | PDOC ---
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 and ivf bolus to replete the TERE drain. watch BP, urine output ok for now. TERE will be removed as per sx, still has lots of drain. protonix drip change to daily as per GI, dced octreotid as per gi gi ppx replete PHOk off sedation since 03/10 pm, eyes open. CPAP trial well since 03/12 , hope extubate soon replete Phok, mag. low grad T AND high wbc daily, hope the abd drain is better and no accumulation or infection in abd. will check CT abd to rule out abscess. 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 Hb stable. Na 149. low urine output, got 500cc NS bolus last night. 03/11: BP lower to 90s, off pressor, TERE still 2L per day, color pinkish, better. Hb 11. Na 146. off sedation since 03/10 pm, not waking up 03/12: wakes up today with blinking eyes, not follow commands. tolerate CPAP TRIAL. TERE drain slightly better , 1L. 03/13: still significant output from the previous TERE drain which was removed yesterday. more awake. TPN. low grade T daily. 03/14: Patient is critically stable at the present time. No further episodes of hematemesis reported. Given the gravity of her varices the patient will remain nothing by mouth as per consultants. The patient's concerns were addressed to the best of my abilities Vitals Vitals Vital Signs Date Time Temp Pulse Resp B/P (MAP) Pulse Ox O2 Delivery O2 Flow Rate FiO2 03/14/18 16:37 Room Air 03/14/18 14:00 76 16 119/63 (81) 98 03/14/18 12:00 2.0 03/14/18 04:00 99.3 99.3 Physical Exam Physical Exam intubated, sedated General: Alert, Oriented X3, Cooperative, mild distress Heart: Regular rate Lungs: Clear Abdomen: Normal bowel sounds, Soft, Other (mild abd ttp, having stools) Extremities: No edema Skin: No rashes, No breakdown Labs LABS Laboratory Tests Test 03/13/18 17:45 03/13/18 23:40 03/14/18 05:00 White Blood Count 9.5 x10^3/uL (4.0-11.0) 8.4 x10^3/uL (4.0-11.0) 8.1 x10^3/uL (4.0-11.0) Red Blood Count 3.39 x10^6/uL (3.50-5.40) 3.20 x10^6/uL (3.50-5.40) 3.28 x10^6/uL (3.50-5.40) Hemoglobin 10.7 g/dL (12.0-15.5) 10.1 g/dL (12.0-15.5) 10.1 g/dL (12.0-15.5) Hematocrit 30.7 % (36.0-47.0) 28.9 % (36.0-47.0) 29.9 % (36.0-47.0) Mean Corpuscular Volume 91 fL (79-100) 90 fL (79-100) 91 fL (79-100) Mean Corpuscular Hemoglobin 32 pg (25-35) 32 pg (25-35) 31 pg (25-35) Mean Corpuscular Hemoglobin Concent 35 g/dL (31-37) 35 g/dL (31-37) 34 g/dL (31-37) Red Cell Distribution Width 15.2 % (11.5-14.5) 14.8 % (11.5-14.5) 15.3 % (11.5-14.5) Platelet Count 130 x10^3/uL (140-400) 129 x10^3/uL (140-400) 140 x10^3/uL (140-400) Sodium Level 143 mmol/L (136-145) 143 mmol/L (136-145) Potassium Level 3.7 mmol/L (3.5-5.1) 3.4 mmol/L (3.5-5.1) Chloride Level 110 mmol/L (98-107) 110 mmol/L (98-107) Carbon Dioxide Level 26 mmol/L (21-32) 25 mmol/L (21-32) Anion Gap 7 (6-14) 8 (6-14) Blood Urea Nitrogen 9 mg/dL (7-20) 11 mg/dL (7-20) Creatinine 0.5 mg/dL (0.6-1.0) 0.5 mg/dL (0.6-1.0) Estimated GFR (Cockcroft-Gault) 122.0 122.0 BUN/Creatinine Ratio 18 (6-20) Glucose Level 119 mg/dL (70-99) 144 mg/dL (70-99) Calcium Level 8.6 mg/dL (8.5-10.1) 8.2 mg/dL (8.5-10.1) Total Bilirubin 1.2 mg/dL (0.2-1.0) Aspartate Amino Transf (AST/SGOT) 66 U/L (15-37) Alanine Aminotransferase (ALT/SGPT) 37 U/L (14-59) Alkaline Phosphatase 183 U/L (46-116) Total Protein 6.3 g/dL (6.4-8.2) Albumin 2.8 g/dL (3.4-5.0) 2.7 g/dL (3.4-5.0) Albumin/Globulin Ratio 0.8 (1.0-1.7) Neutrophils (%) (Auto) 64 % (31-73) Lymphocytes (%) (Auto) 13 % (24-48) Monocytes (%) (Auto) 18 % (0-9) Eosinophils (%) (Auto) 5 % (0-3) Basophils (%) (Auto) 0 % (0-3) Neutrophils # (Auto) 5.2 x10^3uL (1.8-7.7) Lymphocytes # (Auto) 1.1 x10^3/uL (1.0-4.8) Monocytes # (Auto) 1.5 x10^3/uL (0.0-1.1) Eosinophils # (Auto) 0.4 x10^3/uL (0.0-0.7) Basophils # (Auto) 0.0 x10^3/uL (0.0-0.2) Segmented Neutrophils % 82 % (35-66) Band Neutrophils % 4 % (0-9) Lymphocytes % 7 % (24-48) Monocytes % 4 % (0-10) Eosinophils % 3 % (0-5) Platelet Estimate Adequate (ADEQUATE) Phosphorus Level 3.1 mg/dL (2.6-4.7) Magnesium Level 1.9 mg/dL (1.8-2.4) Review of Systems Review of Systems Positive as per HPI otherwise 14 point review of system is negative Assessment and Plan Assessmemt and Plan Problems Medical Problems: (1) Hypotension Status: Acute Acute blood loss anemia - 2/2 gastric varices bleeding s/p Splenectomy, gastrotomy with control of varices, G-tube placement 03/08 and clots evacuation on 03/09 HCC - s/p surgical resection Hypotension - Hypokalemia - Hyperglycemia - Elevated INR better hypomagnesemia hypernatremia hypophosphatemia plan: fu with gi, sx talked to at bedside daily talked to QUILTING MACHINE OPERATOR,OFF PREssors back to TPN, also on ivf as per renal. and ivf bolus to replete the TERE drain. watch BP, urine output ok for now. TERE will be removed as per sx, still has lots of drain. protonix drip change to daily as per GI, dced octreotid as per gi gi ppx replete Phok, mag. as needed Comment Review of Relevant I have reviewed the following items scottie (where applicable) has been applied. Labs Laboratory Tests Test 03/13/18 05:30 03/13/18 08:00 03/13/18 09:25 03/13/18 17:45 White Blood Count 10.3 x10^3/uL (4.0-11.0) 9.5 x10^3/uL (4.0-11.0) Red Blood Count 3.41 x10^6/uL (3.50-5.40) 3.39 x10^6/uL (3.50-5.40) Hemoglobin 10.9 g/dL (12.0-15.5) 10.7 g/dL (12.0-15.5) Hematocrit 31.1 % (36.0-47.0) 30.7 % (36.0-47.0) Mean Corpuscular Volume 91 fL (79-100) 91 fL (79-100) Mean Corpuscular Hemoglobin 32 pg (25-35) 32 pg (25-35) Mean Corpuscular Hemoglobin Concent 35 g/dL (31-37) 35 g/dL (31-37) Red Cell Distribution Width 15.3 % (11.5-14.5) 15.2 % (11.5-14.5) Platelet Count 110 x10^3/uL (140-400) 130 x10^3/uL (140-400) Neutrophils (%) (Auto) 71 % (31-73) Lymphocytes (%) (Auto) 12 % (24-48) Monocytes (%) (Auto) 14 % (0-9) Eosinophils (%) (Auto) 3 % (0-3) Basophils (%) (Auto) 1 % (0-3) Neutrophils # (Auto) 7.3 x10^3uL (1.8-7.7) Lymphocytes # (Auto) 1.2 x10^3/uL (1.0-4.8) Monocytes # (Auto) 1.5 x10^3/uL (0.0-1.1) Eosinophils # (Auto) 0.3 x10^3/uL (0.0-0.7) Basophils # (Auto) 0.1 x10^3/uL (0.0-0.2) Sodium Level 139 mmol/L (136-145) 143 mmol/L (136-145) Potassium Level 3.8 mmol/L (3.5-5.1) 3.7 mmol/L (3.5-5.1) Chloride Level 109 mmol/L (98-107) 110 mmol/L (98-107) Carbon Dioxide Level 23 mmol/L (21-32) 26 mmol/L (21-32) Anion Gap 7 (6-14) 7 (6-14) Blood Urea Nitrogen 11 mg/dL (7-20) 9 mg/dL (7-20) Creatinine 0.4 mg/dL (0.6-1.0) 0.5 mg/dL (0.6-1.0) Estimated GFR (Cockcroft-Gault) 157.8 122.0 Glucose Level 157 mg/dL (70-99) 119 mg/dL (70-99) Calcium Level 7.8 mg/dL (8.5-10.1) 8.6 mg/dL (8.5-10.1) Phosphorus Level 2.2 mg/dL (2.6-4.7) Magnesium Level 1.7 mg/dL (1.8-2.4) Albumin 1.9 g/dL (3.4-5.0) 2.8 g/dL (3.4-5.0) O2 Saturation 98 % (92-99) 98 % (92-99) Arterial Blood pH 7.49 (7.35-7.45) 7.49 (7.35-7.45) Arterial Blood pCO2 at Patient Temp 29 mmHg (35-46) 26 mmHg (35-46) Arterial Blood pO2 at Patient Temp 111 mmHg (65-108) 107 mmHg (65-108) Arterial Blood HCO3 22 mmol/L (21-28) 19 mmol/L (21-28) Arterial Blood Base Excess -1 mmol/L (-3-3) -3 mmol/L (-3-3) FiO2 35 35 BUN/Creatinine Ratio 18 (6-20) Total Bilirubin 1.2 mg/dL (0.2-1.0) Aspartate Amino Transf (AST/SGOT) 66 U/L (15-37) Alanine Aminotransferase (ALT/SGPT) 37 U/L (14-59) Alkaline Phosphatase 183 U/L (46-116) Total Protein 6.3 g/dL (6.4-8.2) Albumin/Globulin Ratio 0.8 (1.0-1.7) Test 03/13/18 23:40 03/14/18 05:00 White Blood Count 8.4 x10^3/uL (4.0-11.0) 8.1 x10^3/uL (4.0-11.0) Red Blood Count 3.20 x10^6/uL (3.50-5.40) 3.28 x10^6/uL (3.50-5.40) Hemoglobin 10.1 g/dL (12.0-15.5) 10.1 g/dL (12.0-15.5) Hematocrit 28.9 % (36.0-47.0) 29.9 % (36.0-47.0) Mean Corpuscular Volume 90 fL (79-100) 91 fL (79-100) Mean Corpuscular Hemoglobin 32 pg (25-35) 31 pg (25-35) Mean Corpuscular Hemoglobin Concent 35 g/dL (31-37) 34 g/dL (31-37) Red Cell Distribution Width 14.8 % (11.5-14.5) 15.3 % (11.5-14.5) Platelet Count 129 x10^3/uL (140-400) 140 x10^3/uL (140-400) Neutrophils (%) (Auto) 64 % (31-73) Lymphocytes (%) (Auto) 13 % (24-48) Monocytes (%) (Auto) 18 % (0-9) Eosinophils (%) (Auto) 5 % (0-3) Basophils (%) (Auto) 0 % (0-3) Neutrophils # (Auto) 5.2 x10^3uL (1.8-7.7) Lymphocytes # (Auto) 1.1 x10^3/uL (1.0-4.8) Monocytes # (Auto) 1.5 x10^3/uL (0.0-1.1) Eosinophils # (Auto) 0.4 x10^3/uL (0.0-0.7) Basophils # (Auto) 0.0 x10^3/uL (0.0-0.2) Segmented Neutrophils % 82 % (35-66) Band Neutrophils % 4 % (0-9) Lymphocytes % 7 % (24-48) Monocytes % 4 % (0-10) Eosinophils % 3 % (0-5) Platelet Estimate Adequate (ADEQUATE) Sodium Level 143 mmol/L (136-145) Potassium Level 3.4 mmol/L (3.5-5.1) Chloride Level 110 mmol/L (98-107) Carbon Dioxide Level 25 mmol/L (21-32) Anion Gap 8 (6-14) Blood Urea Nitrogen 11 mg/dL (7-20) Creatinine 0.5 mg/dL (0.6-1.0) Estimated GFR (Cockcroft-Gault) 122.0 Glucose Level 144 mg/dL (70-99) Calcium Level 8.2 mg/dL (8.5-10.1) Phosphorus Level 3.1 mg/dL (2.6-4.7) Magnesium Level 1.9 mg/dL (1.8-2.4) Albumin 2.7 g/dL (3.4-5.0) Laboratory Tests Test 03/13/18 17:45 03/13/18 23:40 03/14/18 05:00 White Blood Count 9.5 x10^3/uL (4.0-11.0) 8.4 x10^3/uL (4.0-11.0) 8.1 x10^3/uL (4.0-11.0) Red Blood Count 3.39 x10^6/uL (3.50-5.40) 3.20 x10^6/uL (3.50-5.40) 3.28 x10^6/uL (3.50-5.40) Hemoglobin 10.7 g/dL (12.0-15.5) 10.1 g/dL (12.0-15.5) 10.1 g/dL (12.0-15.5) Hematocrit 30.7 % (36.0-47.0) 28.9 % (36.0-47.0) 29.9 % (36.0-47.0) Mean Corpuscular Volume 91 fL (79-100) 90 fL (79-100) 91 fL (79-100) Mean Corpuscular Hemoglobin 32 pg (25-35) 32 pg (25-35) 31 pg (25-35) Mean Corpuscular Hemoglobin Concent 35 g/dL (31-37) 35 g/dL (31-37) 34 g/dL (31-37) Red Cell Distribution Width 15.2 % (11.5-14.5) 14.8 % (11.5-14.5) 15.3 % (11.5-14.5) Platelet Count 130 x10^3/uL (140-400) 129 x10^3/uL (140-400) 140 x10^3/uL (140-400) Sodium Level 143 mmol/L (136-145) 143 mmol/L (136-145) Potassium Level 3.7 mmol/L (3.5-5.1) 3.4 mmol/L (3.5-5.1) Chloride Level 110 mmol/L (98-107) 110 mmol/L (98-107) Carbon Dioxide Level 26 mmol/L (21-32) 25 mmol/L (21-32) Anion Gap 7 (6-14) 8 (6-14) Blood Urea Nitrogen 9 mg/dL (7-20) 11 mg/dL (7-20) Creatinine 0.5 mg/dL (0.6-1.0) 0.5 mg/dL (0.6-1.0) Estimated GFR (Cockcroft-Gault) 122.0 122.0 BUN/Creatinine Ratio 18 (6-20) Glucose Level 119 mg/dL (70-99) 144 mg/dL (70-99) Calcium Level 8.6 mg/dL (8.5-10.1) 8.2 mg/dL (8.5-10.1) Total Bilirubin 1.2 mg/dL (0.2-1.0) Aspartate Amino Transf (AST/SGOT) 66 U/L (15-37) Alanine Aminotransferase (ALT/SGPT) 37 U/L (14-59) Alkaline Phosphatase 183 U/L (46-116) Total Protein 6.3 g/dL (6.4-8.2) Albumin 2.8 g/dL (3.4-5.0) 2.7 g/dL (3.4-5.0) Albumin/Globulin Ratio 0.8 (1.0-1.7) Neutrophils (%) (Auto) 64 % (31-73) Lymphocytes (%) (Auto) 13 % (24-48) Monocytes (%) (Auto) 18 % (0-9) Eosinophils (%) (Auto) 5 % (0-3) Basophils (%) (Auto) 0 % (0-3) Neutrophils # (Auto) 5.2 x10^3uL (1.8-7.7) Lymphocytes # (Auto) 1.1 x10^3/uL (1.0-4.8) Monocytes # (Auto) 1.5 x10^3/uL (0.0-1.1) Eosinophils # (Auto) 0.4 x10^3/uL (0.0-0.7) Basophils # (Auto) 0.0 x10^3/uL (0.0-0.2) Segmented Neutrophils % 82 % (35-66) Band Neutrophils % 4 % (0-9) Lymphocytes % 7 % (24-48) Monocytes % 4 % (0-10) Eosinophils % 3 % (0-5) Platelet Estimate Adequate (ADEQUATE) Phosphorus Level 3.1 mg/dL (2.6-4.7) Magnesium Level 1.9 mg/dL (1.8-2.4) Microbiology 03/09/18 Urine Culture - Final, Complete 03/09/18 Urine Culture Result 1 (JEFFRY) - Final, Complete Medications Current Medications Sodium Chloride 500 ml @ 500 mls/hr Q1H IV Last administered on 03/07/18at 18: 29; Start 03/07/18 at 18:30; Stop 03/07/18 at 18:42; Status DC Pantoprazole Sodium (PROTONIX VIAL for IV PUSH) 80 mg 1X ONCE IVP Last administered on 03/07/18at 19:00; Start 03/07/18 at 18:30; Stop 03/07/18 at 18 :32; Status DC Octreotide Acetate 500 mcg/ Sodium Chloride 101 ml @ 5.05 mls/hr CONT PRN IV SEE I/O RECORD Last administered on 03/09/18at 10:38; Start 03/07/18 at 19:30; Stop 03/09/18 at 11:47; Status DC Ondansetron HCl (Zofran) 4 mg PRN Q8HRS PRN IV NAUSEA/VOMITING; Start at 19:15; Stop 03/08/18 at 19:14; Status DC Iohexol (Omnipaque 300 Mg/ml) 75 ml 1X ONCE IV Last administered on at 20:32; Start 03/07/18 at 19:15; Stop 03/07/18 at 19:16; Status DC Info (CONTRAST GIVEN -- Rx MONITORING) 1 each PRN DAILY PRN MC SEE COMMENTS; Start 03/07/18 at 19:15; Stop 03/09/18 at 19:14; Status DC Propofol 20 ml @ As Directed STK-MED ONCE IV ; Start 03/07/18 at 22:37; Stop 03/07/18 at 22:38; Status DC Pantoprazole Sodium 80 mg/ Sodium Chloride 100 ml @ 10 mls/hr Q10H IV Last administered on 03/10/18at 22:46; Start 03/07/18 at 23:00; Stop 03/11/18 at 11:10 ; Status DC Ringer's Solution 1,000 ml @ 200 mls/hr Q5H IV Last administered on at 20:41; Start 03/07/18 at 23:15; Stop 03/09/18 at 10:58; Status DC Dopamine HCl/ Dextrose 250 ml @ 4.461 mls/ hr CONT PRN IV SEE I/O RECORD; Start 03/08/18 at 09:30 Lidocaine/Sodium Bicarbonate (Buffered Lidocaine 1%) 3 ml STK-MED ONCE .ROUTE ; Start 03/08/18 at 11:47; Stop 03/08/18 at 11:48; Status DC Iohexol (Omnipaque 300 Mg/ml) 100 ml STK-MED ONCE .ROUTE ; Start 03/08/18 at 11 :47; Stop 03/08/18 at 11:48; Status DC Heparin Sodium/ Sodium Chloride 1,000 ml @ As Directed STK-MED ONCE .ROUTE ; Start 03/08/18 at 11:47; Stop 03/08/18 at 11:48; Status DC Midazolam HCl (Versed) 2 mg STK-MED ONCE .ROUTE ; Start 03/08/18 at 12:06; Stop 03/08/18 at 12:07; Status DC Fentanyl Citrate (Fentanyl 2ml Vial) 100 mcg STK-MED ONCE .ROUTE ; Start at 12:06; Stop 03/08/18 at 12:07; Status DC Heparin Sodium/ Sodium Chloride (HEPARIN for ARTERIAL LINE FLUSH) 1,000 unit 1X ONCE IART Last administered on 03/08/18at 12:30; Start 03/08/18 at 12:30; Stop 03/08/18 at 12:31; Status DC Lidocaine/Sodium Bicarbonate (Buffered Lidocaine 1%) 3 ml 1X ONCE IJ Last administered on 03/08/18at 12:15; Start 03/08/18 at 12:15; Stop 03/08/18 at 12 :21; Status DC Midazolam HCl (Versed) 2 mg 1X ONCE IV ; Start 03/08/18 at 12:15; Stop at 12:21; Status DC Fentanyl Citrate (Fentanyl 2ml Vial) 100 mcg 1X ONCE IV Last administered on 03/08/18at 12:15; Start 03/08/18 at 12:15; Stop 03/08/18 at 12:21; Status DC Iohexol (Omnipaque 300 Mg/ml) 100 ml 1X ONCE IART Last administered on at 12:15; Start 03/08/18 at 12:15; Stop 03/08/18 at 12:21; Status DC Phenylephrine HCl ([place]-Synephrine Inj) 10 mg STK-MED ONCE .ROUTE ; Start at 13:25; Stop 03/08/18 at 13:26; Status DC Succinylcholine Chloride ([place]) 200 mg STK-MED ONCE .ROUTE ; Start at 14:55; Stop 03/08/18 at 14:56; Status DC Propofol 20 ml @ As Directed STK-MED ONCE IV ; Start 03/08/18 at 14:55; Stop 03/08/18 at 14:56; Status DC Ketamine HCl (Ketamine) 50 mg STK-MED ONCE .ROUTE ; Start 03/08/18 at 14:55; Stop 03/08/18 at 14:57; Status DC Dexamethasone Sodium Phosphate (Decadron) 20 mg STK-MED ONCE .ROUTE ; Start at 14:56; Stop 03/08/18 at 14:58; Status DC Ondansetron HCl (Zofran) 4 mg STK-MED ONCE .ROUTE ; Start 03/08/18 at 14:57; Stop 03/08/18 at 14:58; Status DC Lidocaine HCl (Lidocaine Pf 2% Vial) 5 ml STK-MED ONCE .ROUTE ; Start 03/08/18 at 14:57; Stop 03/08/18 at 14:58; Status DC Propofol 20 ml @ As Directed STK-MED ONCE IV ; Start 03/08/18 at 14:57; Stop 03/08/18 at 14:58; Status DC Fentanyl Citrate (Fentanyl 5ml Vial) 250 mcg STK-MED ONCE .ROUTE ; Start at 15:54; Stop 03/08/18 at 15:55; Status DC Rocuronium [place] (Zemuron) 100 mg STK-MED ONCE .ROUTE ; Start 03/08/18 at 15: 55; Stop 03/08/18 at 15:57; Status DC Cefazolin Sodium 100 ml @ As Directed STK-MED ONCE IV ; Start 03/08/18 at 15: 57; Stop 03/08/18 at 15:59; Status DC Cellulose (Surgicel Hemostat 4x8) 1 each STK-MED ONCE .ROUTE Last administered on 03/08/18at 15:53; Start 03/08/18 at 16:27; Stop 03/08/18 at 16:28; Status DC Cellulose (Surgicel Hemostat 2x3) 1 each STK-MED ONCE .ROUTE Last administered on 03/08/18at 15:53; Start 03/08/18 at 16:42; Stop 03/08/18 at 16:44; Status DC Cellulose (Surgicel Hemostat 2x14) 1 each STK-MED ONCE .ROUTE ; Start 03/08/18 at 16:42; Stop 03/08/18 at 16:44; Status DC Cellulose (Surgicel Hemostat 4x8) 1 each STK-MED ONCE .ROUTE Last administered on 03/08/18at 15:53; Start 03/08/18 at 16:42; Stop 03/08/18 at 16:44; Status DC Calcium Chloride (Calcium Chloride) 1,000 mg STK-MED ONCE .ROUTE ; Start at 17:03; Stop 03/08/18 at 17:04; Status DC Calcium Chloride (Calcium Chloride) 1,000 mg STK-MED ONCE .ROUTE ; Start at 17:03; Stop 03/08/18 at 17:04; Status DC Sodium Bicarbonate (Sodium Bicarb Adult 8.4% Syr) 50 meq STK-MED ONCE .ROUTE ; Start 03/08/18 at 17:03; Stop 03/08/18 at 17:04; Status DC Sodium Bicarbonate (Sodium Bicarb Adult 8.4% Syr) 50 meq STK-MED ONCE .ROUTE ; Start 03/08/18 at 17:03; Stop 03/08/18 at 17:04; Status DC Epinephrine HCl (EPINEPHrine SYRINGE) 1 mg STK-MED ONCE .ROUTE ; Start at 17:03; Stop 03/08/18 at 17:04; Status DC Albumin Human 500 ml @ As Directed STK-MED ONCE IV ; Start 03/08/18 at 17:03; Stop 03/08/18 at 17:04; Status DC Sodium Bicarbonate (Sodium Bicarb Adult 8.4% Syr) 50 meq STK-MED ONCE .ROUTE ; Start 03/08/18 at 17:07; Stop 03/08/18 at 17:08; Status DC Sodium Bicarbonate (Sodium Bicarb Adult 8.4% Syr) 50 meq STK-MED ONCE .ROUTE ; Start 03/08/18 at 17:07; Stop 03/08/18 at 17:08; Status DC Cellulose (Surgicel Hemostat 4x8) 1 each STK-MED ONCE TP Last administered on 03/08/18at 15:53; Start 03/08/18 at 15:53; Stop 03/08/18 at 17:40; Status DC Sodium Bicarbonate (Sodium Bicarb Adult 8.4% Syr) 50 meq STK-MED ONCE .ROUTE ; Start 03/08/18 at 17:35; Stop 03/08/18 at 17:37; Status DC Calcium Chloride (Calcium Chloride) 1,000 mg STK-MED ONCE .ROUTE ; Start at 17:35; Stop 03/08/18 at 17:37; Status DC Albumin Human 500 ml @ As Directed STK-MED ONCE IV ; Start 03/08/18 at 17:41; Stop 03/08/18 at 17:43; Status DC Norepinephrine Bitartrate 250 ml @ 1.875 mls/ hr 1X ONCE IV Last administered on 03/08/18at 21:00; Start 03/08/18 at 17:45; Stop 03/09/18 at 08 :10; Status DC Vasopressin 40 unit/Dextrose 102 ml @ 6 mls/hr 1X ONCE IV Last administered on 03/08/18at 20:41; Start 03/08/18 at 18:00; Stop 03/09/18 at 10:59; Status DC Calcium Chloride (Calcium Chloride) 1,000 mg STK-MED ONCE .ROUTE ; Start at 17:57; Stop 03/08/18 at 17:59; Status DC Sodium Bicarbonate (Sodium Bicarb Adult 8.4% Syr) 50 meq STK-MED ONCE .ROUTE ; Start 03/08/18 at 18:04; Stop 03/08/18 at 18:06; Status DC Sodium Bicarbonate (Sodium Bicarb Adult 8.4% Syr) 50 meq STK-MED ONCE .ROUTE ; Start 03/08/18 at 18:05; Stop 03/08/18 at 18:06; Status DC Sodium Bicarbonate (Sodium Bicarb Adult 8.4% Syr) 50 meq STK-MED ONCE .ROUTE ; Start 03/08/18 at 18:07; Stop 03/08/18 at 18:08; Status DC Sodium Bicarbonate (Sodium Bicarb Adult 8.4% Syr) 50 meq STK-MED ONCE .ROUTE ; Start 03/08/18 at 18:07; Stop 03/08/18 at 18:08; Status DC Epinephrine HCl (EPINEPHrine SYRINGE) 1 mg STK-MED ONCE .ROUTE ; Start at 18:40; Stop 03/08/18 at 18:41; Status DC Prochlorperazine Edisylate (Compazine) 10 mg STK-MED ONCE .ROUTE ; Start at 18:42; Stop 03/08/18 at 18:44; Status DC Fentanyl Citrate (Fentanyl 2ml Vial) 100 mcg STK-MED ONCE .ROUTE ; Start at 18:43; Stop 03/08/18 at 18:44; Status DC Sevoflurane (Ultane) 90 ml STK-MED ONCE IH ; Start 03/08/18 at 18:48; Stop at 18:49; Status DC Cellulose (Surgicel Hemostat 2x3) 1 each STK-MED ONCE TP Last administered on 03/08/18at 15:55; Start 03/08/18 at 15:55; Stop 03/08/18 at 19:04; Status DC Cellulose (Surgicel Hemostat 2x3) 1 each STK-MED ONCE TP Last administered on 03/08/18at 15:53; Start 03/08/18 at 15:53; Stop 03/08/18 at 19:04; Status DC Propofol 100 ml @ As Directed STK-MED ONCE IV ; Start 03/08/18 at 19:56; Stop 03/08/18 at 19:58; Status DC Famotidine (Pepcid) 20 mg BID PO ; Start 03/08/18 at 21:00; Stop 03/09/18 at 08:11; Status DC Sodium Chloride (Normal Saline Flush) 3 ml QSHIFT PRN IV AFTER MEDS AND BLOOD DRAWS; Start 03/08/18 at 20:45; Status Cancel Morphine Sulfate (Morphine Sulfate) 1 mg PRN Q1HR PRN IV PAIN Last administered on 03/08/18at 21:12; Start 03/08/18 at 20:45; Stop 03/10/18 at 18: 45; Status DC Ondansetron HCl (Zofran) 4 mg PRN Q6HRS PRN IV NAUESA, 1ST CHOICE; Start 03/08 at 20:45 Fentanyl Citrate 30 ml @ 0 mls/hr CONT PRN IV SEE PROTOCOL Last administered on 03/09/18at 23:16; Start 03/08/18 at 22:15 Fentanyl Citrate (Fentanyl 2ml Vial) 25 mcg PRN Q1HR PRN IV SEE COMMENTS; Start 03/08/18 at 22:15; Stop 03/10/18 at 18:45; Status DC Fentanyl Citrate (Fentanyl 2ml Vial) 50 mcg PRN Q1HR PRN IV SEE COMMENTS Last administered on 03/08/18at 22:41; Start 03/08/18 at 22:15; Stop 03/12/18 at 16: 26; Status DC Chlorhexidine Gluconate (Peridex) 15 ml BID MM Last administered on 03/13/18at 09 :00; Start 03/09/18 at 09:00; Stop 03/13/18 at 12:19; Status DC Midazolam HCl 100 ml @ 0 mls/hr CONT PRN IV SEE PROTOCOL Last administered on 03/09/18at 21:43; Start 03/08/18 at 22:15; Stop 03/10/18 at 18:45; Status DC Factor IX (Pha) (Novoseven Rt) 1 mg 1X ONCE IV Last administered on at 01:09; Start 03/09/18 at 01:00; Stop 03/09/18 at 01:01; Status DC Lorazepam (Ativan) 2 mg STK-MED ONCE .ROUTE ; Start 03/09/18 at 01:15; Stop at 01:16; Status DC Norepinephrine Bitartrate 250 ml @ 1.875 mls/ hr CONT PRN IV SEE I/O RECORD Last administered on 03/09/18at 17:41; Start 03/09/18 at 01:45 Cefazolin Sodium/ Dextrose 50 ml @ 100 mls/hr 1X PREOP PRN IV PRIOR TO PROCEDURE Last administered on 03/09/18at 02:00; Start 03/09/18 at 02:00; Stop 03/10/18 at 01:59; Status DC Rocuronium [place] (Zemuron) 100 mg STK-MED ONCE .ROUTE ; Start 03/09/18 at 01: 57; Stop 03/09/18 at 01:59; Status DC Fentanyl Citrate (Fentanyl 5ml Vial) 250 mcg STK-MED ONCE .ROUTE ; Start at 02:13; Stop 03/09/18 at 02:14; Status DC Cellulose (Surgicel Hemostat 2x3) 1 each STK-MED ONCE .ROUTE ; Start 03/09/18 at 02:23; Stop 03/09/18 at 02:25; Status DC Cellulose (Surgicel Hemostat 2x14) 1 each STK-MED ONCE .ROUTE ; Start 03/09/18 at 02:23; Stop 03/09/18 at 02:25; Status DC Cellulose (Surgicel Hemostat 4x8) 1 each STK-MED ONCE .ROUTE Last administered on 03/09/18at 02:04; Start 03/09/18 at 02:23; Stop 03/09/18 at 02:25; Status DC Sodium Chloride (Normal Saline Flush) 3 ml QSHIFT PRN IV AFTER MEDS AND BLOOD DRAWS; Start 03/09/18 at 03:30 Cellulose (Surgicel Hemostat 4x8) 1 each STK-MED ONCE TP Last administered on 03/09/18at 02:04; Start 03/09/18 at 02:04; Stop 03/09/18 at 03:20; Status DC Cellulose (Surgicel Hemostat 4x8) 1 each STK-MED ONCE TP Last administered on 03/09/18at 02:04; Start 03/09/18 at 02:04; Stop 03/09/18 at 03:20; Status DC Sodium Bicarbonate (Sodium Bicarb Adult 8.4% Syr) 150 meq STK-MED ONCE .ROUTE ; Start 03/08/18 at 10:00; Stop 03/09/18 at 10:30; Status DC Dopamine HCl/ Dextrose (DOPamine 400MG/ 250ML PREMIX) 400 mg STK-MED ONCE IV ; Start 03/08/18 at 10:00; Stop 03/09/18 at 10:30; Status DC Potassium Chloride/Dextrose 1,000 ml @ 100 mls/hr Q10H IV Last administered on 03/09/18at 11:22; Start 03/09/18 at 11:00; Stop 03/09/18 at 20:59; Status DC Magnesium Sulfate/ Dextrose 100 ml @ 25 mls/hr 1X ONCE IV Last administered on 03/09/18at 13:45; Start 03/09/18 at 12:45; Stop 03/09/18 at 16:44; Status DC Potassium Chloride/Water 50 ml @ 50 mls/hr 1X ONCE IV Last administered on at 13:43; Start 03/09/18 at 12:45; Stop 03/09/18 at 13:44; Status DC Magnesium Sulfate 50 ml @ 25 mls/hr PRN DAILY PRN IV for Mag < 1.7 on am labs Last administered on 03/10/18at 06:17; Start 03/09/18 at 13:45 Sodium Chloride 500 ml @ 500 mls/hr QIDPRN PRN IV U/O <30 cc/hr Last administered on 03/10/18at 09:00; Start 03/09/18 at 19:45 Info (Tpn Per Pharmacy) 1 each PRN DAILY PRN MC SEE COMMENTS; Start 03/10/18 at 09:00; Stop 03/10/18 at 12:42; Status DC Potassium Phosphate 13.6 mmol/Dextrose 104.5333 ml @ 52.267 m... Q2H IV Last administered on 03/10/18at 10:34; Start 03/10/18 at 10:00; Stop 03/10/18 at 11:59; Status DC Amino Acids/ Glycerin/ Electrolytes 1,000 ml @ 100 mls/hr Q10H IV Last administered on 03/11/18at 21:42; Start 03/10/18 at 13:00; Stop 03/12/18 at 21:59; Status DC Ringer's Solution 500 ml @ 500 mls/hr 1X ONCE IV Last administered on at 18:55; Start 03/10/18 at 19:45; Stop 03/10/18 at 20:44; Status DC Dextrose (Dextrose 50%-Water Syringe) 12.5 gm PRN Q15MIN PRN IV SEE COMMENTS; Start 03/11/18 at 07:00 Ringer's Solution 500 ml @ 500 mls/hr Q1H PRN IV FLUID LOSS Last administered on 03/13/18at 00:39; Start 03/11/18 at 07:00 Pantoprazole Sodium (PROTONIX VIAL for IV PUSH) 40 mg DAILY IVP Last administered on 03/14/18at 09:37; Start 03/12/18 at 09:00 Potassium Phosphate 13.6 mmol/Dextrose 104.5333 ml @ 52.267 m... Q2H IV Last administered on 03/11/18at 21:42; Start 03/11/18 at 14:00; Stop 03/11/18 at 19:59; Status DC Info (Tpn Per Pharmacy) 1 each PRN DAILY PRN MC SEE COMMENTS Last administered on 03/14/18at 12:41; Start 03/12/18 at 09:30 Potassium Phosphate 13.6 mmol/Sodium Chloride 104.5333 ml @ 52.267 m... Q2H IV Last administered on 03/12/18at 13:30; Start 03/12/18 at 09:30; Stop 03/12/18 at 15:29; Status DC Albumin Human 100 ml @ 100 mls/hr TID IV Last administered on 03/14/18at 09:49; Start 03/12/18 at 14:00; Stop 03/14/18 at 09:59; Status DC Info (Tpn Per Pharmacy) 1 each PRN DAILY PRN MC SEE COMMENTS; Start 03/12/18 at 11:00; Status UNV Sodium Acetate 90 meq/Potassium Chloride 50 meq/ Potassium Phosphate 13.6 mmol/ Magnesium Sulfate 10 meq/ Calcium Gluconate 10 meq/ Multivitamins 10 ml/Chromium / Copper/Manganese/ Seleni/Zn 1 ml/ Total Parenteral Nutrition/Amino Acids/ Dextrose/ Fat Emulsion Intravenous 1,512 ml @ 63 mls/hr TPN CONT IV ; Start at 22:00; Stop 03/12/18 at 22:00; Status DC Sodium Acetate 60 meq/Potassium Chloride 50 meq/ Potassium Phosphate 13.6 mmol/ Magnesium Sulfate 10 meq/ Calcium Gluconate 10 meq/ Multivitamins 10 ml/Chromium / Copper/Manganese/ Seleni/Zn 1 ml/ Total Parenteral Nutrition/Amino Acids/ Dextrose/ Fat Emulsion Intravenous 1,512 ml @ 63 mls/hr TPN CONT IV Last administered on 03/12/18at 21:12; Start 03/12/18 at 22:00; Stop 03/13/18 at 21:59; Status DC Magnesium Sulfate 50 ml @ 25 mls/hr 1X ONCE IV Last administered on 03/13/18at 09:30; Start 03/13/18 at 09:30; Stop 03/13/18 at 11:29; Status DC Epinephrine (S2 Racepinephrine) 0.5 ml 1X ONCE NEB Last administered on at 11:30; Start 03/13/18 at 11:30; Stop 03/13/18 at 11:31; Status DC Potassium Phosphate 13.6 mmol/Sodium Chloride 104.5333 ml @ 52.267 m... Q2H IV Last administered on 03/13/18at 15:00; Start 03/13/18 at 13:00; Stop 03/13/18 at 16:59; Status DC Sodium Acetate 60 meq/Potassium Chloride 40 meq/ Potassium Phosphate 25 mmol/ Magnesium Sulfate 15 meq/Calcium Gluconate 5 meq/ Multivitamins 10 ml/Chromium/ Copper/Manganese/ Seleni/Zn 1 ml/ Total Parenteral Nutrition/Amino Acids/ Dextrose/ Fat Emulsion Intravenous 1,512 ml @ 63 mls/hr TPN CONT IV Last administered on 03/13/18at 21:16; Start 03/13/18 at 22:00; Stop 03/14/18 at 21:59 Iohexol (Omnipaque 300 Mg/ml) 75 ml 1X ONCE IV ; Start 03/13/18 at 12:45; Stop 03/13/18 at 12:46; Status DC Info (CONTRAST GIVEN -- Rx MONITORING) 1 each PRN DAILY PRN MC SEE COMMENTS; Start 03/13/18 at 12:45; Stop 03/15/18 at 12:44 Albuterol/ Ipratropium (Duoneb) 3 ml RTQID NEB Last administered on 03/14/18at 16 :37; Start 03/13/18 at 18:30 Fentanyl Citrate (Fentanyl 2ml Vial) 50 mcg PRN Q2HR PRN IV PAIN Last administered on 03/14/18at 12:37; Start 03/14/18 at 08:15 Potassium Chloride/Sodium Chloride 1,000 ml @ 75 mls/hr 1X ONCE IV ; Start 03/14/18 at 08:15; Stop 03/14/18 at 21:34; Status UNV Calcium Gluconate 1000 mg/Dextrose 110 ml @ 220 mls/hr 1X ONCE IV Last administered on 03/14/18at 09:36; Start 03/14/18 at 09:00; Stop 03/14/18 at 09:29; Status DC Iohexol (Omnipaque 300 Mg/ml) 75 ml 1X ONCE IV ; Start 03/14/18 at 08:30; Stop 03/14/18 at 08:31; Status DC Potassium Chloride/Water 50 ml @ 50 mls/hr Q1H IV Last administered on at 10:00; Start 03/14/18 at 09:00; Stop 03/14/18 at 10:59; Status DC Sodium Acetate 60 meq/Potassium Chloride 40 meq/ Potassium Acetate 10 meq/ Potassium Phosphate 25 mmol/ Magnesium Sulfate 15 meq/Calcium Gluconate 5 meq/ Multivitamins 10 ml/Chromium/ Copper/Manganese/ Seleni/Zn 1 ml/ Total Parenteral Nutrition/Amino Acids/Dextrose/ Fat Emulsion Intravenous 1,512 ml @ 63 mls/hr TPN CONT IV ; Start 03/14/18 at 22:00; Stop 03/15/18 at 21:59 Active Scripts Active Reported Prilosec Otc (Omeprazole Magnesium) 20 Mg Tablet.dr 1 Tab PO DAILY Simvastatin 20 Mg Tablet 1 Tab PO QHS Vitals/I & O Vital Sign - Last 24 Hours 03/13/18 03/13/18 03/13/18 03/13/18 18:00 19:00 20:00 20:00 Temp 98.6 98.6 Pulse 83 81 82 Resp 16 16 17 B/P (MAP) 122/51 (74) 125/52 (76) 121/52 (75) Pulse Ox 98 97 97 O2 Delivery Nasal Cannula Nasal Cannula Nasal Cannula Nasal Cannula O2 Flow Rate 2.0 2.0 2.0 2.0 03/13/18 03/13/18 03/13/18 03/13/18 20:38 21:00 22:00 23:00 Pulse 86 88 86 Resp 13 13 14 B/P (MAP) 140/60 (86) 121/50 (73) 116/54 (74) Pulse Ox 98 97 98 97 O2 Delivery Nasal Cannula Nasal Cannula Nasal Cannula Nasal Cannula O2 Flow Rate 2.0 2.0 2.0 2.0 03/14/18 03/14/18 03/14/18 03/14/18 00:00 00:10 01:00 02:00 Temp 99.3 99.3 Pulse 84 76 74 Resp 14 17 16 B/P (MAP) 114/53 (73) 112/52 (72) 103/53 (70) Pulse Ox 97 97 97 O2 Delivery Nasal Cannula Nasal Cannula Nasal Cannula Nasal Cannula O2 Flow Rate 2.0 2.0 2.0 2.0 03/14/18 03/14/18 03/14/18 03/14/18 03:00 03:50 04:00 05:00 Temp 99.3 99.3 Pulse 84 82 74 Resp 14 14 17 B/P (MAP) 110/54 (72) 104/57 (73) 108/53 (71) Pulse Ox 98 98 98 O2 Delivery Nasal Cannula Nasal Cannula Nasal Cannula Nasal Cannula O2 Flow Rate 2.0 2.0 2.0 2.0 03/14/18 03/14/18 03/14/18 03/14/18 06:00 07:00 08:00 08:00 Pulse 74 74 72 Resp 16 16 16 B/P (MAP) 107/57 (74) 114/51 (72) 111/54 (73) Pulse Ox 98 98 98 O2 Delivery Nasal Cannula Nasal Cannula Nasal Cannula Nasal Cannula O2 Flow Rate 2.0 2.0 2.0 2.0 03/14/18 03/14/18 03/14/18 03/14/18 08:34 08:44 09:00 10:00 Pulse 74 74 Resp 16 16 14 B/P (MAP) 112/51 (71) 109/52 (71) Pulse Ox 98 98 98 O2 Delivery Nasal Cannula Nasal Cannula Nasal Cannula O2 Flow Rate 2.0 2.0 2.0 03/14/18 03/14/18 03/14/18 03/14/18 11:00 12:00 12:00 12:58 Pulse 80 72 Resp 16 18 B/P (MAP) 102/52 (69) 102/21 (48) Pulse Ox 99 99 98 O2 Delivery Room Air Nasal Cannula Room Air Room Air O2 Flow Rate 2.0 03/14/18 03/14/18 03/14/18 13:00 14:00 16:37 Pulse 74 76 Resp 16 16 B/P (MAP) 110/56 (74) 119/63 (81) Pulse Ox 99 98 O2 Delivery Room Air Room Air Room Air Intake and Output 03/13/18 03/13/18 03/14/18 15:01 23:01 07:01 Intake Total 200 ml 701 ml Output Total 3555 ml 1845 ml 985 ml Balance -3355 ml -1144 ml -985 ml VISHNU SANABRIA MD Mar 14, 2018 17:32
[2018-03-14] MEDS ORDERED: TOTAL PARENTERAL NUTRITION IV SCH ×11 (22:00)
[2018-03-14] MEDS ORDERED: DEXTROSE 70% IV SCH ×11 (22:00)
[2018-03-14] MEDS ORDERED: AMINO ACID IV SCH ×11 (22:00)
[2018-03-14] MEDS ORDERED: [UNRECOGNIZED DRUG - OTHER] IV SCH ×11 (22:00)
[2018-03-15] VITALS (15 sets, daily range): BP systolic 98–119; BP diastolic 56–66
[2018-03-15] MEDS: fentaNYL PF VIAL 100 MCG/2 ML VIAL IV PRN ×6 (00:11→21:48)
[2018-03-15 06:17] LABS: ALBUMIN 2.7 g/dL (3.4-5.0); CALCIUM 8.4 mg/dL (8.5-10.1); CREATININE 0.4 mg/dL (0.6-1.0); GFR 157.8; PHOSPHORUS 3.3 mg/dL (2.6-4.7); POTASSIUM 3.9 mmol/L (3.5-5.1)
[2018-03-15 07:24] LABS: BASO % 0 % (0-3); EOS # 0.9 x10^3/uL (0.0-0.7); EOS % 10 % (0-3); HEMATOCRIT 32.2 % (36.0-47.0); HEMOGLOBIN 10.9 g/dL (12.0-15.5); LYMPH # 1.3 x10^3/uL (1.0-4.8); LYMPH % 15 % (24-48); MEAN CORPUSCULAR HEMOGLOBIN 31 pg (25-35); MEAN CORPUSCULAR HGB CONC 34 g/dL (31-37); MEAN CORPUSCULAR VOLUME 91 fL (79-100); MONO # 1.6 x10^3/uL (0.0-1.1); MONO % 18 % (0-9); NEUT # 5.1 x10^3uL (1.8-7.7); NEUT % 57 % (31-73); PLATELET COUNT 180 x10^3/uL (140-400); RED BLOOD COUNT 3.55 x10^6/uL (3.50-5.40); RED CELL DISTRIBUTION WIDTH 15.1 % (11.5-14.5); WHITE BLOOD COUNT 8.9 x10^3/uL (4.0-11.0)
[2018-03-15] MEDS: PANTOPRAZOLE IV PUSH 40 MG VIAL. IVP SCH (07:44)
[2018-03-15] MEDS: IPRATRPIUM/ALBUTEROL 0.5/2.5MG 3 ML NEBU. NEB SCH ×4 (08:13→20:10)
[2018-03-15] MEDS ORDERED: MAGNESIUM SULFATE 1GM 100 ML IV ONE (09:00)
--- NOTE | 2018-03-15 10:07 | PDOC ---
PULMONARY PROGRESS NOTES Subjective EXTUBATED 03/13 NO RESP DISTRESS Vitals Vital Signs Date Time Temp Pulse Resp B/P (MAP) Pulse Ox O2 Delivery O2 Flow Rate FiO2 03/15/18 09:00 77 16 106/58 (74) 97 Room Air 03/15/18 07:00 99.1 99.1 03/14/18 16:00 2.0 Lungs: Clear Cardiovascular: S1, S2 Abdomen: Soft Skin: Warm, Dry Labs Laboratory Tests Test 03/13/18 17:45 03/13/18 23:40 03/14/18 05:00 03/15/18 05:30 White Blood Count 9.5 x10^3/uL (4.0-11.0) 8.4 x10^3/uL (4.0-11.0) 8.1 x10^3/uL (4.0-11.0) 8.9 x10^3/uL (4.0-11.0) Red Blood Count 3.39 x10^6/uL (3.50-5.40) 3.20 x10^6/uL (3.50-5.40) 3.28 x10^6/uL (3.50-5.40) 3.55 x10^6/uL (3.50-5.40) Hemoglobin 10.7 g/dL (12.0-15.5) 10.1 g/dL (12.0-15.5) 10.1 g/dL (12.0-15.5) 10.9 g/dL (12.0-15.5) Hematocrit 30.7 % (36.0-47.0) 28.9 % (36.0-47.0) 29.9 % (36.0-47.0) 32.2 % (36.0-47.0) Mean Corpuscular Volume 91 fL (79-100) 90 fL (79-100) 91 fL (79-100) 91 fL ( 79-100) Mean Corpuscular Hemoglobin 32 pg (25-35) 32 pg (25-35) 31 pg (25-35) 31 pg ( 25-35) Mean Corpuscular Hemoglobin Concent 35 g/dL (31-37) 35 g/dL (31-37) 34 g/dL (31-37) 34 g/dL (31-37) Red Cell Distribution Width 15.2 % (11.5-14.5) 14.8 % (11.5-14.5) 15.3 % (11.5-14.5) 15.1 % (11.5-14.5) Platelet Count 130 x10^3/uL (140-400) 129 x10^3/uL (140-400) 140 x10^3/uL (140-400) 180 x10^3/uL (140-400) Sodium Level 143 mmol/L (136-145) 143 mmol/L (136-145) 136 mmol/L (136-145) Potassium Level 3.7 mmol/L (3.5-5.1) 3.4 mmol/L (3.5-5.1) 3.9 mmol/L (3.5-5.1) Chloride Level 110 mmol/L (98-107) 110 mmol/L (98-107) 104 mmol/L (98-107) Carbon Dioxide Level 26 mmol/L (21-32) 25 mmol/L (21-32) 24 mmol/L (21-32) Anion Gap 7 (6-14) 8 (6-14) 8 (6-14) Blood Urea Nitrogen 9 mg/dL (7-20) 11 mg/dL (7-20) 10 mg/dL (7-20) Creatinine 0.5 mg/dL (0.6-1.0) 0.5 mg/dL (0.6-1.0) 0.4 mg/dL (0.6-1.0) Estimated GFR (Cockcroft-Gault) 122.0 122.0 157.8 BUN/Creatinine Ratio 18 (6-20) Glucose Level 119 mg/dL (70-99) 144 mg/dL (70-99) 120 mg/dL (70-99) Calcium Level 8.6 mg/dL (8.5-10.1) 8.2 mg/dL (8.5-10.1) 8.4 mg/dL (8.5-10.1) Total Bilirubin 1.2 mg/dL (0.2-1.0) Aspartate Amino Transf (AST/SGOT) 66 U/L (15-37) Alanine Aminotransferase (ALT/SGPT) 37 U/L (14-59) Alkaline Phosphatase 183 U/L (46-116) Total Protein 6.3 g/dL (6.4-8.2) Albumin 2.8 g/dL (3.4-5.0) 2.7 g/dL (3.4-5.0) 2.7 g/dL (3.4-5.0) Albumin/Globulin Ratio 0.8 (1.0-1.7) Neutrophils (%) (Auto) 64 % (31-73) 57 % (31-73) Lymphocytes (%) (Auto) 13 % (24-48) 15 % (24-48) Monocytes (%) (Auto) 18 % (0-9) 18 % (0-9) Eosinophils (%) (Auto) 5 % (0-3) 10 % (0-3) Basophils (%) (Auto) 0 % (0-3) 0 % (0-3) Neutrophils # (Auto) 5.2 x10^3uL (1.8-7.7) 5.1 x10^3uL (1.8-7.7) Lymphocytes # (Auto) 1.1 x10^3/uL (1.0-4.8) 1.3 x10^3/uL (1.0-4.8) Monocytes # (Auto) 1.5 x10^3/uL (0.0-1.1) 1.6 x10^3/uL (0.0-1.1) Eosinophils # (Auto) 0.4 x10^3/uL (0.0-0.7) 0.9 x10^3/uL (0.0-0.7) Basophils # (Auto) 0.0 x10^3/uL (0.0-0.2) 0.0 x10^3/uL (0.0-0.2) Segmented Neutrophils % 82 % (35-66) Band Neutrophils % 4 % (0-9) Lymphocytes % 7 % (24-48) Monocytes % 4 % (0-10) Eosinophils % 3 % (0-5) Platelet Estimate Adequate (ADEQUATE) Phosphorus Level 3.1 mg/dL (2.6-4.7) 3.3 mg/dL (2.6-4.7) Magnesium Level 1.9 mg/dL (1.8-2.4) 1.6 mg/dL (1.8-2.4) Ionized Calcium 1.14 mmol/L (1.13-1.32) Laboratory Tests Test 03/15/18 05:30 White Blood Count 8.9 x10^3/uL (4.0-11.0) Red Blood Count 3.55 x10^6/uL (3.50-5.40) Hemoglobin 10.9 g/dL (12.0-15.5) Hematocrit 32.2 % (36.0-47.0) Mean Corpuscular Volume 91 fL (79-100) Mean Corpuscular Hemoglobin 31 pg (25-35) Mean Corpuscular Hemoglobin Concent 34 g/dL (31-37) Red Cell Distribution Width 15.1 % (11.5-14.5) Platelet Count 180 x10^3/uL (140-400) Neutrophils (%) (Auto) 57 % (31-73) Lymphocytes (%) (Auto) 15 % (24-48) Monocytes (%) (Auto) 18 % (0-9) Eosinophils (%) (Auto) 10 % (0-3) Basophils (%) (Auto) 0 % (0-3) Neutrophils # (Auto) 5.1 x10^3uL (1.8-7.7) Lymphocytes # (Auto) 1.3 x10^3/uL (1.0-4.8) Monocytes # (Auto) 1.6 x10^3/uL (0.0-1.1) Eosinophils # (Auto) 0.9 x10^3/uL (0.0-0.7) Basophils # (Auto) 0.0 x10^3/uL (0.0-0.2) Sodium Level 136 mmol/L (136-145) Potassium Level 3.9 mmol/L (3.5-5.1) Chloride Level 104 mmol/L (98-107) Carbon Dioxide Level 24 mmol/L (21-32) Anion Gap 8 (6-14) Blood Urea Nitrogen 10 mg/dL (7-20) Creatinine 0.4 mg/dL (0.6-1.0) Estimated GFR (Cockcroft-Gault) 157.8 Glucose Level 120 mg/dL (70-99) Calcium Level 8.4 mg/dL (8.5-10.1) Ionized Calcium 1.14 mmol/L (1.13-1.32) Phosphorus Level 3.3 mg/dL (2.6-4.7) Magnesium Level 1.6 mg/dL (1.8-2.4) Albumin 2.7 g/dL (3.4-5.0) Medications Active Scripts Medications Dose Route/Sig Max Daily Dose Days Date Category Prilosec Otc (Omeprazole Magnesium) 20 Mg Tablet.dr 1 Tab PO DAILY 03/07/18 Reported Simvastatin 20 Mg Tablet 1 Tab PO QHS 03/07/18 Reported Impression . 1. respiratory failure Expected post-op multifactorial EXTUBATED 03/13 2. GI bleed stabilized 3. cirrhosis 4. hx resected hepatocellular carcinoma 5. ENCEPHALOPATHY SUSPECT METABOLIC 6. DYAPHGIA Plan . OK TO TRANSFER ADVANCE DIET PER SPEECH SPOKE WITH DECREASE 02 PT/OT CORINA ROBERSON MD Mar 15, 2018 10:07
--- NOTE | 2018-03-15 10:09 | PDOC ---
SURGICAL PROGRESS NOTE Subjective Currently resting comfortably has been up bathing and working with physical therapy Vital Signs Vital Signs Date Time Temp Pulse Resp B/P (MAP) Pulse Ox O2 Delivery O2 Flow Rate FiO2 03/15/18 09:00 77 16 106/58 (74) 97 Room Air 03/15/18 07:00 99.1 99.1 03/14/18 16:00 2.0 I&O Intake and Output 03/15/18 07:01 Intake Total 1541 ml Output Total 4400 ml Balance -2859 ml Intake Oral 0 ml IV Total 1541 ml Output Urine Total 1900 ml Gastric Drainage Total 1000 ml Drainage Total 1500 ml # Bowel Movements 1 PATIENT HAS A PEREIRA: Yes General: No acute distress Lungs: Clear to auscultation, Normal air movement Heart: Regular rate, No murmurs Abdomen: Normal bowel sounds, Soft, Other (mild incisional tenderness. Previous J-tube site draining approximately 250 mL a day to ostomy bag) Extremities: No edema Labs Laboratory Tests Test 03/13/18 17:45 03/13/18 23:40 03/14/18 05:00 03/15/18 05:30 White Blood Count 9.5 x10^3/uL (4.0-11.0) 8.4 x10^3/uL (4.0-11.0) 8.1 x10^3/uL (4.0-11.0) 8.9 x10^3/uL (4.0-11.0) Red Blood Count 3.39 x10^6/uL (3.50-5.40) 3.20 x10^6/uL (3.50-5.40) 3.28 x10^6/uL (3.50-5.40) 3.55 x10^6/uL (3.50-5.40) Hemoglobin 10.7 g/dL (12.0-15.5) 10.1 g/dL (12.0-15.5) 10.1 g/dL (12.0-15.5) 10.9 g/dL (12.0-15.5) Hematocrit 30.7 % (36.0-47.0) 28.9 % (36.0-47.0) 29.9 % (36.0-47.0) 32.2 % (36.0-47.0) Mean Corpuscular Volume 91 fL (79-100) 90 fL (79-100) 91 fL (79-100) 91 fL ( 79-100) Mean Corpuscular Hemoglobin 32 pg (25-35) 32 pg (25-35) 31 pg (25-35) 31 pg ( 25-35) Mean Corpuscular Hemoglobin Concent 35 g/dL (31-37) 35 g/dL (31-37) 34 g/dL (31-37) 34 g/dL (31-37) Red Cell Distribution Width 15.2 % (11.5-14.5) 14.8 % (11.5-14.5) 15.3 % (11.5-14.5) 15.1 % (11.5-14.5) Platelet Count 130 x10^3/uL (140-400) 129 x10^3/uL (140-400) 140 x10^3/uL (140-400) 180 x10^3/uL (140-400) Sodium Level 143 mmol/L (136-145) 143 mmol/L (136-145) 136 mmol/L (136-145) Potassium Level 3.7 mmol/L (3.5-5.1) 3.4 mmol/L (3.5-5.1) 3.9 mmol/L (3.5-5.1) Chloride Level 110 mmol/L (98-107) 110 mmol/L (98-107) 104 mmol/L (98-107) Carbon Dioxide Level 26 mmol/L (21-32) 25 mmol/L (21-32) 24 mmol/L (21-32) Anion Gap 7 (6-14) 8 (6-14) 8 (6-14) Blood Urea Nitrogen 9 mg/dL (7-20) 11 mg/dL (7-20) 10 mg/dL (7-20) Creatinine 0.5 mg/dL (0.6-1.0) 0.5 mg/dL (0.6-1.0) 0.4 mg/dL (0.6-1.0) Estimated GFR (Cockcroft-Gault) 122.0 122.0 157.8 BUN/Creatinine Ratio 18 (6-20) Glucose Level 119 mg/dL (70-99) 144 mg/dL (70-99) 120 mg/dL (70-99) Calcium Level 8.6 mg/dL (8.5-10.1) 8.2 mg/dL (8.5-10.1) 8.4 mg/dL (8.5-10.1) Total Bilirubin 1.2 mg/dL (0.2-1.0) Aspartate Amino Transf (AST/SGOT) 66 U/L (15-37) Alanine Aminotransferase (ALT/SGPT) 37 U/L (14-59) Alkaline Phosphatase 183 U/L (46-116) Total Protein 6.3 g/dL (6.4-8.2) Albumin 2.8 g/dL (3.4-5.0) 2.7 g/dL (3.4-5.0) 2.7 g/dL (3.4-5.0) Albumin/Globulin Ratio 0.8 (1.0-1.7) Neutrophils (%) (Auto) 64 % (31-73) 57 % (31-73) Lymphocytes (%) (Auto) 13 % (24-48) 15 % (24-48) Monocytes (%) (Auto) 18 % (0-9) 18 % (0-9) Eosinophils (%) (Auto) 5 % (0-3) 10 % (0-3) Basophils (%) (Auto) 0 % (0-3) 0 % (0-3) Neutrophils # (Auto) 5.2 x10^3uL (1.8-7.7) 5.1 x10^3uL (1.8-7.7) Lymphocytes # (Auto) 1.1 x10^3/uL (1.0-4.8) 1.3 x10^3/uL (1.0-4.8) Monocytes # (Auto) 1.5 x10^3/uL (0.0-1.1) 1.6 x10^3/uL (0.0-1.1) Eosinophils # (Auto) 0.4 x10^3/uL (0.0-0.7) 0.9 x10^3/uL (0.0-0.7) Basophils # (Auto) 0.0 x10^3/uL (0.0-0.2) 0.0 x10^3/uL (0.0-0.2) Segmented Neutrophils % 82 % (35-66) Band Neutrophils % 4 % (0-9) Lymphocytes % 7 % (24-48) Monocytes % 4 % (0-10) Eosinophils % 3 % (0-5) Platelet Estimate Adequate (ADEQUATE) Phosphorus Level 3.1 mg/dL (2.6-4.7) 3.3 mg/dL (2.6-4.7) Magnesium Level 1.9 mg/dL (1.8-2.4) 1.6 mg/dL (1.8-2.4) Ionized Calcium 1.14 mmol/L (1.13-1.32) Laboratory Tests Test 03/15/18 05:30 White Blood Count 8.9 x10^3/uL (4.0-11.0) Red Blood Count 3.55 x10^6/uL (3.50-5.40) Hemoglobin 10.9 g/dL (12.0-15.5) Hematocrit 32.2 % (36.0-47.0) Mean Corpuscular Volume 91 fL (79-100) Mean Corpuscular Hemoglobin 31 pg (25-35) Mean Corpuscular Hemoglobin Concent 34 g/dL (31-37) Red Cell Distribution Width 15.1 % (11.5-14.5) Platelet Count 180 x10^3/uL (140-400) Neutrophils (%) (Auto) 57 % (31-73) Lymphocytes (%) (Auto) 15 % (24-48) Monocytes (%) (Auto) 18 % (0-9) Eosinophils (%) (Auto) 10 % (0-3) Basophils (%) (Auto) 0 % (0-3) Neutrophils # (Auto) 5.1 x10^3uL (1.8-7.7) Lymphocytes # (Auto) 1.3 x10^3/uL (1.0-4.8) Monocytes # (Auto) 1.6 x10^3/uL (0.0-1.1) Eosinophils # (Auto) 0.9 x10^3/uL (0.0-0.7) Basophils # (Auto) 0.0 x10^3/uL (0.0-0.2) Sodium Level 136 mmol/L (136-145) Potassium Level 3.9 mmol/L (3.5-5.1) Chloride Level 104 mmol/L (98-107) Carbon Dioxide Level 24 mmol/L (21-32) Anion Gap 8 (6-14) Blood Urea Nitrogen 10 mg/dL (7-20) Creatinine 0.4 mg/dL (0.6-1.0) Estimated GFR (Cockcroft-Gault) 157.8 Glucose Level 120 mg/dL (70-99) Calcium Level 8.4 mg/dL (8.5-10.1) Ionized Calcium 1.14 mmol/L (1.13-1.32) Phosphorus Level 3.3 mg/dL (2.6-4.7) Magnesium Level 1.6 mg/dL (1.8-2.4) Albumin 2.7 g/dL (3.4-5.0) Problem List Problems Medical Problems: (1) Hypotension Status: Acute Assessment/Plan Overall improving would agree with transfer to [facility] Awaiting swallow study prior to feeding Concern with J-tube site and drainage may be fistulized we'll monitor closely SUMEET SNOW MD Mar 15, 2018 10:09
[2018-03-15] MEDS: TPN PER PHARMACY MC PRN (10:55)
--- NOTE | 2018-03-15 11:00 | NUR ---
Pharmacy TPN Dosing Note S: CARLA ESPINOZA is a 72 year old F Currently receiving Central Continuous TPN started 03/12/18 B:Pertinent PMH: HEPATIC CARCINOMA, MALNUTRITION Height: 5 feet, 4 inches Weight: 63.001360 kg Current diet: npo LABS: Sodium: 136 Potassium: 3.9 Chloride: 104 Calcium: 8.4 Corrected Calcium: 9.44 Magnesium: 1.6 CO2: 24 SCr: 0.4 Glucose: 120 Albumin: 2.7 AST: 66 (1/) ALT: 37 (1/) TPN FORMULA: TPN TYPE: Central Continuous AMINO ACIDS: 70 gm DEXTROSE: 195 gm LIPIDS: 20 gm SODIUM CHLORIDE: 30 mEq SODIUM ACETATE: 60 mEq SODIUM PHOSPHATE: - mmol POTASSIUM CHLORIDE: 40 mEq POTASSIUM ACETATE: 10 mEq POTASSIUM PHOSPHATE: 25 mmol MAGNESIUM: 20 mEq CALCIUM: 5 mEq INSULIN: 0 units MULTIPLE VITAMIN: 10 ml TRACE ELEMENTS: 1 ml(s) TPN PLAN: -Continue Macros per dietary recommendations (70 g AA, 195 g Dextrose and 20 g lipids) -Patient continues to have increased gastric drainage from location where TERE drain was and PEG tube now clamped. -Sodium trending down and chloride trending down will add NaCl to TPN today. -Mag trending down. 1x dose of 1 gram of Mag given outside TPN today. Will increase Mag in TPN. -Other electroytles within normal limits. Confirmed with RN lactated ringers not actively running outside of TPN. -Labs in the am R: Continue TPN with increase in NaCl and Mag Will monitor electrolytes, glucose, and tolerance to TPN. ABBIE FUNES, [facility], 03/15/18 1100
--- NOTE | 2018-03-15 13:45 | NUR ---
Pt was tx from ICU at 1338. Oriented to call light, room, and visiting hours. VSS. Pt complains of pain at a 3. Will grab her some medicine. Bed in lowest position, locked, and call light within reach. Nursing assessment in progress. Will continue to monitor.
--- NOTE | 2018-03-15 15:18 | PDOC ---
PROGRESS NOTES Chief Complaint Chief Complaint Acute blood loss anemia - 2/2 gastric varices bleeding s/p Splenectomy, gastrotomy with control of varices, G-tube placement 03/08 and clots evacuation on 03/09 HCC - s/p surgical resection Hypotension - Hypokalemia - Hyperglycemia - Elevated INR better hypomagnesemia hypernatremia hypophosphatemia plan: fu with gi, sx talked to at bedside on TPN TERE care as per surgery gi ppx replete PHOk extubated 03/13 diet to be started pending speech eval History of Present Illness History of Present Illness coming for hematemesis, and hematochezia EGD 03/08 wo active bleeding failed IR then sx Splenectomy, gastrotomy with control of varices, G-tube placement 03/08, blood clots evacuation 03/09 intubated, sedated regular diet ordered by Nurse for her 03/09: low BP ,still has dark bloody liquid from G tube significant amount, Na 153 03/10: off pressor, TERE drain is less and mild bright red, 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 Hb stable. Na 149. low urine output, got 500cc NS bolus last night. 03/11: BP lower to 90s, off pressor, TERE still 2L per day, color pinkish, better. Hb 11. Na 146. off sedation since 03/10 pm, not waking up 03/12: wakes up today with blinking eyes, not follow commands. tolerate CPAP TRIAL. TERE drain slightly better , 1L. 03/13: still significant output from the previous TERE drain which was removed yesterday. more awake. TPN. low grade T daily. 03/14: Patient is critically stable at the present time. No further episodes of hematemesis reported. Given the gravity of her varices the patient will remain nothing by mouth as per consultants. The patient's concerns were addressed to the best of my abilities 03/15: No concerns serum my visit. No acute events reported overnight patient will be transferring out of the intensive care unit today Vitals Vitals Vital Signs Date Time Temp Pulse Resp B/P (MAP) Pulse Ox O2 Delivery O2 Flow Rate FiO2 03/15/18 14:28 Room Air 03/15/18 13:40 99.6 80 16 107/59 (75) 98 99.6 03/14/18 16:00 2.0 Physical Exam Physical Exam intubated, sedated General: No acute distress Heart: Regular rate, No murmurs Lungs: Clear Abdomen: Normal bowel sounds, Soft, Other (mild incisional tenderness. Previous J-tube site draining approximately 250 mL a day to ostomy bag) Extremities: No edema Skin: No rashes, No breakdown Labs LABS Laboratory Tests Test 03/15/18 05:30 White Blood Count 8.9 x10^3/uL (4.0-11.0) Red Blood Count 3.55 x10^6/uL (3.50-5.40) Hemoglobin 10.9 g/dL (12.0-15.5) Hematocrit 32.2 % (36.0-47.0) Mean Corpuscular Volume 91 fL (79-100) Mean Corpuscular Hemoglobin 31 pg (25-35) Mean Corpuscular Hemoglobin Concent 34 g/dL (31-37) Red Cell Distribution Width 15.1 % (11.5-14.5) Platelet Count 180 x10^3/uL (140-400) Neutrophils (%) (Auto) 57 % (31-73) Lymphocytes (%) (Auto) 15 % (24-48) Monocytes (%) (Auto) 18 % (0-9) Eosinophils (%) (Auto) 10 % (0-3) Basophils (%) (Auto) 0 % (0-3) Neutrophils # (Auto) 5.1 x10^3uL (1.8-7.7) Lymphocytes # (Auto) 1.3 x10^3/uL (1.0-4.8) Monocytes # (Auto) 1.6 x10^3/uL (0.0-1.1) Eosinophils # (Auto) 0.9 x10^3/uL (0.0-0.7) Basophils # (Auto) 0.0 x10^3/uL (0.0-0.2) Sodium Level 136 mmol/L (136-145) Potassium Level 3.9 mmol/L (3.5-5.1) Chloride Level 104 mmol/L (98-107) Carbon Dioxide Level 24 mmol/L (21-32) Anion Gap 8 (6-14) Blood Urea Nitrogen 10 mg/dL (7-20) Creatinine 0.4 mg/dL (0.6-1.0) Estimated GFR (Cockcroft-Gault) 157.8 Glucose Level 120 mg/dL (70-99) Calcium Level 8.4 mg/dL (8.5-10.1) Ionized Calcium 1.14 mmol/L (1.13-1.32) Phosphorus Level 3.3 mg/dL (2.6-4.7) Magnesium Level 1.6 mg/dL (1.8-2.4) Albumin 2.7 g/dL (3.4-5.0) Assessment and Plan Assessmemt and Plan Problems Medical Problems: (1) Hypotension Status: Acute Comment Review of Relevant I have reviewed the following items scottie (where applicable) has been applied. Labs Laboratory Tests Test 03/13/18 17:45 03/13/18 23:40 03/14/18 05:00 03/15/18 05:30 White Blood Count 9.5 x10^3/uL (4.0-11.0) 8.4 x10^3/uL (4.0-11.0) 8.1 x10^3/uL (4.0-11.0) 8.9 x10^3/uL (4.0-11.0) Red Blood Count 3.39 x10^6/uL (3.50-5.40) 3.20 x10^6/uL (3.50-5.40) 3.28 x10^6/uL (3.50-5.40) 3.55 x10^6/uL (3.50-5.40) Hemoglobin 10.7 g/dL (12.0-15.5) 10.1 g/dL (12.0-15.5) 10.1 g/dL (12.0-15.5) 10.9 g/dL (12.0-15.5) Hematocrit 30.7 % (36.0-47.0) 28.9 % (36.0-47.0) 29.9 % (36.0-47.0) 32.2 % (36.0-47.0) Mean Corpuscular Volume 91 fL (79-100) 90 fL (79-100) 91 fL (79-100) 91 fL ( 79-100) Mean Corpuscular Hemoglobin 32 pg (25-35) 32 pg (25-35) 31 pg (25-35) 31 pg ( 25-35) Mean Corpuscular Hemoglobin Concent 35 g/dL (31-37) 35 g/dL (31-37) 34 g/dL (31-37) 34 g/dL (31-37) Red Cell Distribution Width 15.2 % (11.5-14.5) 14.8 % (11.5-14.5) 15.3 % (11.5-14.5) 15.1 % (11.5-14.5) Platelet Count 130 x10^3/uL (140-400) 129 x10^3/uL (140-400) 140 x10^3/uL (140-400) 180 x10^3/uL (140-400) Sodium Level 143 mmol/L (136-145) 143 mmol/L (136-145) 136 mmol/L (136-145) Potassium Level 3.7 mmol/L (3.5-5.1) 3.4 mmol/L (3.5-5.1) 3.9 mmol/L (3.5-5.1) Chloride Level 110 mmol/L (98-107) 110 mmol/L (98-107) 104 mmol/L (98-107) Carbon Dioxide Level 26 mmol/L (21-32) 25 mmol/L (21-32) 24 mmol/L (21-32) Anion Gap 7 (6-14) 8 (6-14) 8 (6-14) Blood Urea Nitrogen 9 mg/dL (7-20) 11 mg/dL (7-20) 10 mg/dL (7-20) Creatinine 0.5 mg/dL (0.6-1.0) 0.5 mg/dL (0.6-1.0) 0.4 mg/dL (0.6-1.0) Estimated GFR (Cockcroft-Gault) 122.0 122.0 157.8 BUN/Creatinine Ratio 18 (6-20) Glucose Level 119 mg/dL (70-99) 144 mg/dL (70-99) 120 mg/dL (70-99) Calcium Level 8.6 mg/dL (8.5-10.1) 8.2 mg/dL (8.5-10.1) 8.4 mg/dL (8.5-10.1) Total Bilirubin 1.2 mg/dL (0.2-1.0) Aspartate Amino Transf (AST/SGOT) 66 U/L (15-37) Alanine Aminotransferase (ALT/SGPT) 37 U/L (14-59) Alkaline Phosphatase 183 U/L (46-116) Total Protein 6.3 g/dL (6.4-8.2) Albumin 2.8 g/dL (3.4-5.0) 2.7 g/dL (3.4-5.0) 2.7 g/dL (3.4-5.0) Albumin/Globulin Ratio 0.8 (1.0-1.7) Neutrophils (%) (Auto) 64 % (31-73) 57 % (31-73) Lymphocytes (%) (Auto) 13 % (24-48) 15 % (24-48) Monocytes (%) (Auto) 18 % (0-9) 18 % (0-9) Eosinophils (%) (Auto) 5 % (0-3) 10 % (0-3) Basophils (%) (Auto) 0 % (0-3) 0 % (0-3) Neutrophils # (Auto) 5.2 x10^3uL (1.8-7.7) 5.1 x10^3uL (1.8-7.7) Lymphocytes # (Auto) 1.1 x10^3/uL (1.0-4.8) 1.3 x10^3/uL (1.0-4.8) Monocytes # (Auto) 1.5 x10^3/uL (0.0-1.1) 1.6 x10^3/uL (0.0-1.1) Eosinophils # (Auto) 0.4 x10^3/uL (0.0-0.7) 0.9 x10^3/uL (0.0-0.7) Basophils # (Auto) 0.0 x10^3/uL (0.0-0.2) 0.0 x10^3/uL (0.0-0.2) Segmented Neutrophils % 82 % (35-66) Band Neutrophils % 4 % (0-9) Lymphocytes % 7 % (24-48) Monocytes % 4 % (0-10) Eosinophils % 3 % (0-5) Platelet Estimate Adequate (ADEQUATE) Phosphorus Level 3.1 mg/dL (2.6-4.7) 3.3 mg/dL (2.6-4.7) Magnesium Level 1.9 mg/dL (1.8-2.4) 1.6 mg/dL (1.8-2.4) Ionized Calcium 1.14 mmol/L (1.13-1.32) Laboratory Tests Test 03/15/18 05:30 White Blood Count 8.9 x10^3/uL (4.0-11.0) Red Blood Count 3.55 x10^6/uL (3.50-5.40) Hemoglobin 10.9 g/dL (12.0-15.5) Hematocrit 32.2 % (36.0-47.0) Mean Corpuscular Volume 91 fL (79-100) Mean Corpuscular Hemoglobin 31 pg (25-35) Mean Corpuscular Hemoglobin Concent 34 g/dL (31-37) Red Cell Distribution Width 15.1 % (11.5-14.5) Platelet Count 180 x10^3/uL (140-400) Neutrophils (%) (Auto) 57 % (31-73) Lymphocytes (%) (Auto) 15 % (24-48) Monocytes (%) (Auto) 18 % (0-9) Eosinophils (%) (Auto) 10 % (0-3) Basophils (%) (Auto) 0 % (0-3) Neutrophils # (Auto) 5.1 x10^3uL (1.8-7.7) Lymphocytes # (Auto) 1.3 x10^3/uL (1.0-4.8) Monocytes # (Auto) 1.6 x10^3/uL (0.0-1.1) Eosinophils # (Auto) 0.9 x10^3/uL (0.0-0.7) Basophils # (Auto) 0.0 x10^3/uL (0.0-0.2) Sodium Level 136 mmol/L (136-145) Potassium Level 3.9 mmol/L (3.5-5.1) Chloride Level 104 mmol/L (98-107) Carbon Dioxide Level 24 mmol/L (21-32) Anion Gap 8 (6-14) Blood Urea Nitrogen 10 mg/dL (7-20) Creatinine 0.4 mg/dL (0.6-1.0) Estimated GFR (Cockcroft-Gault) 157.8 Glucose Level 120 mg/dL (70-99) Calcium Level 8.4 mg/dL (8.5-10.1) Ionized Calcium 1.14 mmol/L (1.13-1.32) Phosphorus Level 3.3 mg/dL (2.6-4.7) Magnesium Level 1.6 mg/dL (1.8-2.4) Albumin 2.7 g/dL (3.4-5.0) Microbiology 03/09/18 Urine Culture - Final, Complete 03/09/18 Urine Culture Result 1 (JEFFRY) - Final, Complete Medications Current Medications Sodium Chloride 500 ml @ 500 mls/hr Q1H IV Last administered on 03/07/18at 18: 29; Start 03/07/18 at 18:30; Stop 03/07/18 at 18:42; Status DC Pantoprazole Sodium (PROTONIX VIAL for IV PUSH) 80 mg 1X ONCE IVP Last administered on 03/07/18at 19:00; Start 03/07/18 at 18:30; Stop 03/07/18 at 18 :32; Status DC Octreotide Acetate 500 mcg/ Sodium Chloride 101 ml @ 5.05 mls/hr CONT PRN IV SEE I/O RECORD Last administered on 03/09/18at 10:38; Start 03/07/18 at 19:30; Stop 03/09/18 at 11:47; Status DC Ondansetron HCl (Zofran) 4 mg PRN Q8HRS PRN IV NAUSEA/VOMITING; Start at 19:15; Stop 03/08/18 at 19:14; Status DC Iohexol (Omnipaque 300 Mg/ml) 75 ml 1X ONCE IV Last administered on at 20:32; Start 03/07/18 at 19:15; Stop 03/07/18 at 19:16; Status DC Info (CONTRAST GIVEN -- Rx MONITORING) 1 each PRN DAILY PRN MC SEE COMMENTS; Start 03/07/18 at 19:15; Stop 03/09/18 at 19:14; Status DC Propofol 20 ml @ As Directed STK-MED ONCE IV ; Start 03/07/18 at 22:37; Stop 03/07/18 at 22:38; Status DC Pantoprazole Sodium 80 mg/ Sodium Chloride 100 ml @ 10 mls/hr Q10H IV Last administered on 03/10/18at 22:46; Start 03/07/18 at 23:00; Stop 03/11/18 at 11:10 ; Status DC Ringer's Solution 1,000 ml @ 200 mls/hr Q5H IV Last administered on at 20:41; Start 03/07/18 at 23:15; Stop 03/09/18 at 10:58; Status DC Dopamine HCl/ Dextrose 250 ml @ 4.461 mls/ hr CONT PRN IV SEE I/O RECORD; Start 03/08/18 at 09:30 Lidocaine/Sodium Bicarbonate (Buffered Lidocaine 1%) 3 ml STK-MED ONCE .ROUTE ; Start 03/08/18 at 11:47; Stop 03/08/18 at 11:48; Status DC Iohexol (Omnipaque 300 Mg/ml) 100 ml STK-MED ONCE .ROUTE ; Start 03/08/18 at 11 :47; Stop 03/08/18 at 11:48; Status DC Heparin Sodium/ Sodium Chloride 1,000 ml @ As Directed STK-MED ONCE .ROUTE ; Start 03/08/18 at 11:47; Stop 03/08/18 at 11:48; Status DC Midazolam HCl (Versed) 2 mg STK-MED ONCE .ROUTE ; Start 03/08/18 at 12:06; Stop 03/08/18 at 12:07; Status DC Fentanyl Citrate (Fentanyl 2ml Vial) 100 mcg STK-MED ONCE .ROUTE ; Start at 12:06; Stop 03/08/18 at 12:07; Status DC Heparin Sodium/ Sodium Chloride (HEPARIN for ARTERIAL LINE FLUSH) 1,000 unit 1X ONCE IART Last administered on 03/08/18at 12:30; Start 03/08/18 at 12:30; Stop 03/08/18 at 12:31; Status DC Lidocaine/Sodium Bicarbonate (Buffered Lidocaine 1%) 3 ml 1X ONCE IJ Last administered on 03/08/18at 12:15; Start 03/08/18 at 12:15; Stop 03/08/18 at 12 :21; Status DC Midazolam HCl (Versed) 2 mg 1X ONCE IV ; Start 03/08/18 at 12:15; Stop at 12:21; Status DC Fentanyl Citrate (Fentanyl 2ml Vial) 100 mcg 1X ONCE IV Last administered on 03/08/18at 12:15; Start 03/08/18 at 12:15; Stop 03/08/18 at 12:21; Status DC Iohexol (Omnipaque 300 Mg/ml) 100 ml 1X ONCE IART Last administered on at 12:15; Start 03/08/18 at 12:15; Stop 03/08/18 at 12:21; Status DC Phenylephrine HCl (Wander-Synephrine Inj) 10 mg STK-MED ONCE .ROUTE ; Start at 13:25; Stop 03/08/18 at 13:26; Status DC Succinylcholine Chloride (Anectine) 200 mg STK-MED ONCE .ROUTE ; Start at 14:55; Stop 03/08/18 at 14:56; Status DC Propofol 20 ml @ As Directed STK-MED ONCE IV ; Start 03/08/18 at 14:55; Stop 03/08/18 at 14:56; Status DC Ketamine HCl (Ketamine) 50 mg STK-MED ONCE .ROUTE ; Start 03/08/18 at 14:55; Stop 03/08/18 at 14:57; Status DC Dexamethasone Sodium Phosphate (Decadron) 20 mg STK-MED ONCE .ROUTE ; Start at 14:56; Stop 03/08/18 at 14:58; Status DC Ondansetron HCl (Zofran) 4 mg STK-MED ONCE .ROUTE ; Start 03/08/18 at 14:57; Stop 03/08/18 at 14:58; Status DC Lidocaine HCl (Lidocaine Pf 2% Vial) 5 ml STK-MED ONCE .ROUTE ; Start 03/08/18 at 14:57; Stop 03/08/18 at 14:58; Status DC Propofol 20 ml @ As Directed STK-MED ONCE IV ; Start 03/08/18 at 14:57; Stop 03/08/18 at 14:58; Status DC Fentanyl Citrate (Fentanyl 5ml Vial) 250 mcg STK-MED ONCE .ROUTE ; Start at 15:54; Stop 03/08/18 at 15:55; Status DC Rocuronium Davis (Zemuron) 100 mg STK-MED ONCE .ROUTE ; Start 03/08/18 at 15: 55; Stop 03/08/18 at 15:57; Status DC Cefazolin Sodium 100 ml @ As Directed STK-MED ONCE IV ; Start 03/08/18 at 15: 57; Stop 03/08/18 at 15:59; Status DC Cellulose (Surgicel Hemostat 4x8) 1 each STK-MED ONCE .ROUTE Last administered on 03/08/18at 15:53; Start 03/08/18 at 16:27; Stop 03/08/18 at 16:28; Status DC Cellulose (Surgicel Hemostat 2x3) 1 each STK-MED ONCE .ROUTE Last administered on 03/08/18at 15:53; Start 03/08/18 at 16:42; Stop 03/08/18 at 16:44; Status DC Cellulose (Surgicel Hemostat 2x14) 1 each STK-MED ONCE .ROUTE ; Start 03/08/18 at 16:42; Stop 03/08/18 at 16:44; Status DC Cellulose (Surgicel Hemostat 4x8) 1 each STK-MED ONCE .ROUTE Last administered on 03/08/18at 15:53; Start 03/08/18 at 16:42; Stop 03/08/18 at 16:44; Status DC Calcium Chloride (Calcium Chloride) 1,000 mg STK-MED ONCE .ROUTE ; Start at 17:03; Stop 03/08/18 at 17:04; Status DC Calcium Chloride (Calcium Chloride) 1,000 mg STK-MED ONCE .ROUTE ; Start at 17:03; Stop 03/08/18 at 17:04; Status DC Sodium Bicarbonate (Sodium Bicarb Adult 8.4% Syr) 50 meq STK-MED ONCE .ROUTE ; Start 03/08/18 at 17:03; Stop 03/08/18 at 17:04; Status DC Sodium Bicarbonate (Sodium Bicarb Adult 8.4% Syr) 50 meq STK-MED ONCE .ROUTE ; Start 03/08/18 at 17:03; Stop 03/08/18 at 17:04; Status DC Epinephrine HCl (EPINEPHrine SYRINGE) 1 mg STK-MED ONCE .ROUTE ; Start at 17:03; Stop 03/08/18 at 17:04; Status DC Albumin Human 500 ml @ As Directed STK-MED ONCE IV ; Start 03/08/18 at 17:03; Stop 03/08/18 at 17:04; Status DC Sodium Bicarbonate (Sodium Bicarb Adult 8.4% Syr) 50 meq STK-MED ONCE .ROUTE ; Start 03/08/18 at 17:07; Stop 03/08/18 at 17:08; Status DC Sodium Bicarbonate (Sodium Bicarb Adult 8.4% Syr) 50 meq STK-MED ONCE .ROUTE ; Start 03/08/18 at 17:07; Stop 03/08/18 at 17:08; Status DC Cellulose (Surgicel Hemostat 4x8) 1 each STK-MED ONCE TP Last administered on 03/08/18at 15:53; Start 03/08/18 at 15:53; Stop 03/08/18 at 17:40; Status DC Sodium Bicarbonate (Sodium Bicarb Adult 8.4% Syr) 50 meq STK-MED ONCE .ROUTE ; Start 03/08/18 at 17:35; Stop 03/08/18 at 17:37; Status DC Calcium Chloride (Calcium Chloride) 1,000 mg STK-MED ONCE .ROUTE ; Start at 17:35; Stop 03/08/18 at 17:37; Status DC Albumin Human 500 ml @ As Directed STK-MED ONCE IV ; Start 03/08/18 at 17:41; Stop 03/08/18 at 17:43; Status DC Norepinephrine Bitartrate 250 ml @ 1.875 mls/ hr 1X ONCE IV Last administered on 03/08/18at 21:00; Start 03/08/18 at 17:45; Stop 03/09/18 at 08 :10; Status DC Vasopressin 40 unit/Dextrose 102 ml @ 6 mls/hr 1X ONCE IV Last administered on 03/08/18at 20:41; Start 03/08/18 at 18:00; Stop 03/09/18 at 10:59; Status DC Calcium Chloride (Calcium Chloride) 1,000 mg STK-MED ONCE .ROUTE ; Start at 17:57; Stop 03/08/18 at 17:59; Status DC Sodium Bicarbonate (Sodium Bicarb Adult 8.4% Syr) 50 meq STK-MED ONCE .ROUTE ; Start 03/08/18 at 18:04; Stop 03/08/18 at 18:06; Status DC Sodium Bicarbonate (Sodium Bicarb Adult 8.4% Syr) 50 meq STK-MED ONCE .ROUTE ; Start 03/08/18 at 18:05; Stop 03/08/18 at 18:06; Status DC Sodium Bicarbonate (Sodium Bicarb Adult 8.4% Syr) 50 meq STK-MED ONCE .ROUTE ; Start 03/08/18 at 18:07; Stop 03/08/18 at 18:08; Status DC Sodium Bicarbonate (Sodium Bicarb Adult 8.4% Syr) 50 meq STK-MED ONCE .ROUTE ; Start 03/08/18 at 18:07; Stop 03/08/18 at 18:08; Status DC Epinephrine HCl (EPINEPHrine SYRINGE) 1 mg STK-MED ONCE .ROUTE ; Start at 18:40; Stop 03/08/18 at 18:41; Status DC Prochlorperazine Edisylate (Compazine) 10 mg STK-MED ONCE .ROUTE ; Start at 18:42; Stop 03/08/18 at 18:44; Status DC Fentanyl Citrate (Fentanyl 2ml Vial) 100 mcg STK-MED ONCE .ROUTE ; Start at 18:43; Stop 03/08/18 at 18:44; Status DC Sevoflurane (Ultane) 90 ml STK-MED ONCE IH ; Start 03/08/18 at 18:48; Stop at 18:49; Status DC Cellulose (Surgicel Hemostat 2x3) 1 each STK-MED ONCE TP Last administered on 03/08/18at 15:55; Start 03/08/18 at 15:55; Stop 03/08/18 at 19:04; Status DC Cellulose (Surgicel Hemostat 2x3) 1 each STK-MED ONCE TP Last administered on 03/08/18at 15:53; Start 03/08/18 at 15:53; Stop 03/08/18 at 19:04; Status DC Propofol 100 ml @ As Directed STK-MED ONCE IV ; Start 03/08/18 at 19:56; Stop 03/08/18 at 19:58; Status DC Famotidine (Pepcid) 20 mg BID PO ; Start 03/08/18 at 21:00; Stop 03/09/18 at 08:11; Status DC Sodium Chloride (Normal Saline Flush) 3 ml QSHIFT PRN IV AFTER MEDS AND BLOOD DRAWS; Start 03/08/18 at 20:45; Status Cancel Morphine Sulfate (Morphine Sulfate) 1 mg PRN Q1HR PRN IV PAIN Last administered on 03/08/18at 21:12; Start 03/08/18 at 20:45; Stop 03/10/18 at 18: 45; Status DC Ondansetron HCl (Zofran) 4 mg PRN Q6HRS PRN IV NAUESA, 1ST CHOICE; Start 03/08 at 20:45 Fentanyl Citrate 30 ml @ 0 mls/hr CONT PRN IV SEE PROTOCOL Last administered on 03/09/18at 23:16; Start 03/08/18 at 22:15 Fentanyl Citrate (Fentanyl 2ml Vial) 25 mcg PRN Q1HR PRN IV SEE COMMENTS; Start 03/08/18 at 22:15; Stop 03/10/18 at 18:45; Status DC Fentanyl Citrate (Fentanyl 2ml Vial) 50 mcg PRN Q1HR PRN IV SEE COMMENTS Last administered on 03/08/18at 22:41; Start 03/08/18 at 22:15; Stop 03/12/18 at 16: 26; Status DC Chlorhexidine Gluconate (Peridex) 15 ml BID MM Last administered on 03/13/18at 09 :00; Start 03/09/18 at 09:00; Stop 03/13/18 at 12:19; Status DC Midazolam HCl 100 ml @ 0 mls/hr CONT PRN IV SEE PROTOCOL Last administered on 03/09/18at 21:43; Start 03/08/18 at 22:15; Stop 03/10/18 at 18:45; Status DC Factor IX (Pha) (Novoseven Rt) 1 mg 1X ONCE IV Last administered on at 01:09; Start 03/09/18 at 01:00; Stop 03/09/18 at 01:01; Status DC Lorazepam (Ativan) 2 mg STK-MED ONCE .ROUTE ; Start 03/09/18 at 01:15; Stop at 01:16; Status DC Norepinephrine Bitartrate 250 ml @ 1.875 mls/ hr CONT PRN IV SEE I/O RECORD Last administered on 03/09/18at 17:41; Start 03/09/18 at 01:45 Cefazolin Sodium/ Dextrose 50 ml @ 100 mls/hr 1X PREOP PRN IV PRIOR TO PROCEDURE Last administered on 03/09/18at 02:00; Start 03/09/18 at 02:00; Stop 03/10/18 at 01:59; Status DC Rocuronium Davis (Zemuron) 100 mg STK-MED ONCE .ROUTE ; Start 03/09/18 at 01: 57; Stop 03/09/18 at 01:59; Status DC Fentanyl Citrate (Fentanyl 5ml Vial) 250 mcg STK-MED ONCE .ROUTE ; Start at 02:13; Stop 03/09/18 at 02:14; Status DC Cellulose (Surgicel Hemostat 2x3) 1 each STK-MED ONCE .ROUTE ; Start 03/09/18 at 02:23; Stop 03/09/18 at 02:25; Status DC Cellulose (Surgicel Hemostat 2x14) 1 each STK-MED ONCE .ROUTE ; Start 03/09/18 at 02:23; Stop 03/09/18 at 02:25; Status DC Cellulose (Surgicel Hemostat 4x8) 1 each STK-MED ONCE .ROUTE Last administered on 03/09/18at 02:04; Start 03/09/18 at 02:23; Stop 03/09/18 at 02:25; Status DC Sodium Chloride (Normal Saline Flush) 3 ml QSHIFT PRN IV AFTER MEDS AND BLOOD DRAWS; Start 03/09/18 at 03:30 Cellulose (Surgicel Hemostat 4x8) 1 each STK-MED ONCE TP Last administered on 03/09/18at 02:04; Start 03/09/18 at 02:04; Stop 03/09/18 at 03:20; Status DC Cellulose (Surgicel Hemostat 4x8) 1 each STK-MED ONCE TP Last administered on 03/09/18at 02:04; Start 03/09/18 at 02:04; Stop 03/09/18 at 03:20; Status DC Sodium Bicarbonate (Sodium Bicarb Adult 8.4% Syr) 150 meq STK-MED ONCE .ROUTE ; Start 03/08/18 at 10:00; Stop 03/09/18 at 10:30; Status DC Dopamine HCl/ Dextrose (DOPamine 400MG/ 250ML PREMIX) 400 mg STK-MED ONCE IV ; Start 03/08/18 at 10:00; Stop 03/09/18 at 10:30; Status DC Potassium Chloride/Dextrose 1,000 ml @ 100 mls/hr Q10H IV Last administered on 03/09/18at 11:22; Start 03/09/18 at 11:00; Stop 03/09/18 at 20:59; Status DC Magnesium Sulfate/ Dextrose 100 ml @ 25 mls/hr 1X ONCE IV Last administered on 03/09/18at 13:45; Start 03/09/18 at 12:45; Stop 03/09/18 at 16:44; Status DC Potassium Chloride/Water 50 ml @ 50 mls/hr 1X ONCE IV Last administered on at 13:43; Start 03/09/18 at 12:45; Stop 03/09/18 at 13:44; Status DC Magnesium Sulfate 50 ml @ 25 mls/hr PRN DAILY PRN IV for Mag < 1.7 on am labs Last administered on 03/10/18at 06:17; Start 03/09/18 at 13:45 Sodium Chloride 500 ml @ 500 mls/hr QIDPRN PRN IV U/O <30 cc/hr Last administered on 03/10/18at 09:00; Start 03/09/18 at 19:45 Info (Tpn Per Pharmacy) 1 each PRN DAILY PRN MC SEE COMMENTS; Start 03/10/18 at 09:00; Stop 03/10/18 at 12:42; Status DC Potassium Phosphate 13.6 mmol/Dextrose 104.5333 ml @ 52.267 m... Q2H IV Last administered on 03/10/18at 10:34; Start 03/10/18 at 10:00; Stop 03/10/18 at 11:59; Status DC Amino Acids/ Glycerin/ Electrolytes 1,000 ml @ 100 mls/hr Q10H IV Last administered on 03/11/18at 21:42; Start 03/10/18 at 13:00; Stop 03/12/18 at 21:59; Status DC Ringer's Solution 500 ml @ 500 mls/hr 1X ONCE IV Last administered on at 18:55; Start 03/10/18 at 19:45; Stop 03/10/18 at 20:44; Status DC Dextrose (Dextrose 50%-Water Syringe) 12.5 gm PRN Q15MIN PRN IV SEE COMMENTS; Start 03/11/18 at 07:00 Ringer's Solution 500 ml @ 500 mls/hr Q1H PRN IV FLUID LOSS Last administered on 03/13/18at 00:39; Start 03/11/18 at 07:00 Pantoprazole Sodium (PROTONIX VIAL for IV PUSH) 40 mg DAILY IVP Last administered on 03/15/18at 07:44; Start 03/12/18 at 09:00 Potassium Phosphate 13.6 mmol/Dextrose 104.5333 ml @ 52.267 m... Q2H IV Last administered on 03/11/18at 21:42; Start 03/11/18 at 14:00; Stop 03/11/18 at 19:59; Status DC Info (Tpn Per Pharmacy) 1 each PRN DAILY PRN MC SEE COMMENTS Last administered on 03/15/18at 10:55; Start 03/12/18 at 09:30 Potassium Phosphate 13.6 mmol/Sodium Chloride 104.5333 ml @ 52.267 m... Q2H IV Last administered on 03/12/18at 13:30; Start 03/12/18 at 09:30; Stop 03/12/18 at 15:29; Status DC Albumin Human 100 ml @ 100 mls/hr TID IV Last administered on 03/14/18at 09:49; Start 03/12/18 at 14:00; Stop 03/14/18 at 09:59; Status DC Info (Tpn Per Pharmacy) 1 each PRN DAILY PRN MC SEE COMMENTS; Start 03/12/18 at 11:00; Status UNV Sodium Acetate 90 meq/Potassium Chloride 50 meq/ Potassium Phosphate 13.6 mmol/ Magnesium Sulfate 10 meq/ Calcium Gluconate 10 meq/ Multivitamins 10 ml/Chromium / Copper/Manganese/ Seleni/Zn 1 ml/ Total Parenteral Nutrition/Amino Acids/ Dextrose/ Fat Emulsion Intravenous 1,512 ml @ 63 mls/hr TPN CONT IV ; Start at 22:00; Stop 03/12/18 at 22:00; Status DC Sodium Acetate 60 meq/Potassium Chloride 50 meq/ Potassium Phosphate 13.6 mmol/ Magnesium Sulfate 10 meq/ Calcium Gluconate 10 meq/ Multivitamins 10 ml/Chromium / Copper/Manganese/ Seleni/Zn 1 ml/ Total Parenteral Nutrition/Amino Acids/ Dextrose/ Fat Emulsion Intravenous 1,512 ml @ 63 mls/hr TPN CONT IV Last administered on 03/12/18at 21:12; Start 03/12/18 at 22:00; Stop 03/13/18 at 21:59; Status DC Magnesium Sulfate 50 ml @ 25 mls/hr 1X ONCE IV Last administered on 03/13/18at 09:30; Start 03/13/18 at 09:30; Stop 03/13/18 at 11:29; Status DC Epinephrine (S2 Racepinephrine) 0.5 ml 1X ONCE NEB Last administered on at 11:30; Start 03/13/18 at 11:30; Stop 03/13/18 at 11:31; Status DC Potassium Phosphate 13.6 mmol/Sodium Chloride 104.5333 ml @ 52.267 m... Q2H IV Last administered on 03/13/18at 15:00; Start 03/13/18 at 13:00; Stop 03/13/18 at 16:59; Status DC Sodium Acetate 60 meq/Potassium Chloride 40 meq/ Potassium Phosphate 25 mmol/ Magnesium Sulfate 15 meq/Calcium Gluconate 5 meq/ Multivitamins 10 ml/Chromium/ Copper/Manganese/ Seleni/Zn 1 ml/ Total Parenteral Nutrition/Amino Acids/ Dextrose/ Fat Emulsion Intravenous 1,512 ml @ 63 mls/hr TPN CONT IV Last administered on 03/13/18at 21:16; Start 03/13/18 at 22:00; Stop 03/14/18 at 21:59; Status DC Iohexol (Omnipaque 300 Mg/ml) 75 ml 1X ONCE IV ; Start 03/13/18 at 12:45; Stop 03/13/18 at 12:46; Status DC Info (CONTRAST GIVEN -- Rx MONITORING) 1 each PRN DAILY PRN MC SEE COMMENTS; Start 03/13/18 at 12:45; Stop 03/15/18 at 12:45; Status DC Albuterol/ Ipratropium (Duoneb) 3 ml RTQID NEB Last administered on 03/15/18at 12 :20; Start 03/13/18 at 18:30 Fentanyl Citrate (Fentanyl 2ml Vial) 50 mcg PRN Q2HR PRN IV PAIN Last administered on 03/15/18at 13:58; Start 03/14/18 at 08:15 Potassium Chloride/Sodium Chloride 1,000 ml @ 75 mls/hr 1X ONCE IV ; Start 03/14/18 at 08:15; Stop 03/14/18 at 21:34; Status UNV Calcium Gluconate 1000 mg/Dextrose 110 ml @ 220 mls/hr 1X ONCE IV Last administered on 03/14/18at 09:36; Start 03/14/18 at 09:00; Stop 03/14/18 at 09:29; Status DC Iohexol (Omnipaque 300 Mg/ml) 75 ml 1X ONCE IV ; Start 03/14/18 at 08:30; Stop 03/14/18 at 08:31; Status DC Potassium Chloride/Water 50 ml @ 50 mls/hr Q1H IV Last administered on at 10:00; Start 03/14/18 at 09:00; Stop 03/14/18 at 10:59; Status DC Sodium Acetate 60 meq/Potassium Chloride 40 meq/ Potassium Acetate 10 meq/ Potassium Phosphate 25 mmol/ Magnesium Sulfate 15 meq/Calcium Gluconate 5 meq/ Multivitamins 10 ml/Chromium/ Copper/Manganese/ Seleni/Zn 1 ml/ Total Parenteral Nutrition/Amino Acids/Dextrose/ Fat Emulsion Intravenous 1,512 ml @ 63 mls/hr TPN CONT IV Last administered on 03/14/18at 21:51; Start 03/14/18 at 22 :00; Stop 03/15/18 at 21:59 Magnesium Sulfate/ Dextrose 100 ml @ 100 mls/hr 1X ONCE IV Last administered on 03/15/18at 08:59; Start 03/15/18 at 09:00; Stop 03/15/18 at 09:59; Status DC Sodium Chloride 30 meq/Sodium Acetate 60 meq/ Potassium Chloride 40 meq/ Potassium Acetate 10 meq/Potassium Phosphate 25 mmol/ Magnesium Sulfate 20 meq/ Calcium Gluconate 5 meq/ Multivitamins 10 ml/Chromium/ Copper/Manganese/ Seleni/ Zn 1 ml/ Total Parenteral Nutrition/Amino Acids/Dextrose/ Fat Emuls... 1,512 ml @ 63 mls/hr TPN CONT IV ; Start 03/15/18 at 22:00; Stop 03/16/18 at 21:59 Active Scripts Active Reported Prilosec Otc (Omeprazole Magnesium) 20 Mg Tablet. 1 Tab PO DAILY Simvastatin 20 Mg Tablet 1 Tab PO QHS Vitals/I & O Vital Sign - Last 24 Hours 03/14/18 03/14/18 03/14/18 03/14/18 16:00 16:00 16:37 17:00 Pulse 76 74 Resp 16 14 B/P (MAP) 126/67 (86) 133/64 (87) Pulse Ox 98 99 O2 Delivery Nasal Cannula Room Air Room Air Room Air O2 Flow Rate 2.0 03/14/18 03/14/18 03/14/18 03/14/18 18:00 19:00 19:48 20:00 Temp 99.0 99.0 Pulse 80 82 76 Resp 16 16 16 B/P (MAP) 99/60 (73) 110/60 (77) 113/64 (80) Pulse Ox 97 98 98 O2 Delivery Room Air Room Air Room Air 03/14/18 03/14/18 03/14/18 03/14/18 20:23 20:27 21:00 22:00 Pulse 73 74 Resp 16 16 B/P (MAP) 113/60 (77) 112/58 (76) Pulse Ox 97 99 99 O2 Delivery Room Air Room Air Room Air Room Air 03/14/18 03/15/18 03/15/18 03/15/18 23:00 00:00 01:00 02:00 Temp 99.2 99.2 Pulse 74 68 70 69 Resp 16 16 16 16 B/P (MAP) 108/59 (75) 110/64 (79) 118/65 (82) 99/58 (72) Pulse Ox 99 98 99 99 O2 Delivery Room Air Room Air Room Air Room Air 03/15/18 03/15/18 03/15/18 03/15/18 03:00 04:00 05:00 06:00 Temp 99.0 99.0 Pulse 68 74 66 68 Resp 16 16 16 16 B/P (MAP) 109/63 (78) 112/64 (80) 105/62 (76) 104/64 (77) Pulse Ox 99 98 99 99 O2 Delivery Room Air Room Air Room Air Room Air 03/15/18 03/15/18 03/15/18 03/15/18 07:00 07:44 08:00 08:14 Temp 99.1 99.1 Pulse 73 71 Resp 16 16 16 B/P (MAP) 119/66 (83) 107/60 (76) Pulse Ox 98 98 98 97 O2 Delivery Nasal Cannula Room Air Room Air 03/15/18 03/15/18 03/15/18 03/15/18 08:15 09:00 10:00 12:21 Temp 99.0 99.0 Pulse 77 77 Resp 16 16 16 B/P (MAP) 106/58 (74) 98/66 (77) Pulse Ox 97 97 97 98 O2 Delivery Room Air Room Air Room Air 03/15/18 03/15/18 03/15/18 13:40 13:58 14:28 Temp 99.6 99.6 Pulse 80 Resp 16 B/P (MAP) 107/59 (75) Pulse Ox 98 O2 Delivery Room Air Room Air Room Air Intake and Output 03/14/18 03/14/18 03/15/18 15:01 23:01 07:01 Intake Total 756 ml 0 ml 785 ml Output Total 1130 ml 2125 ml 1145 ml Balance -374 ml -2125 ml -360 ml VISHNU SANABRIA MD Mar 15, 2018 15:18
[2018-03-15] MEDS ORDERED: [UNRECOGNIZED DRUG - OTHER] IV SCH ×12 (22:00)
[2018-03-15] MEDS ORDERED: TOTAL PARENTERAL NUTRITION IV SCH ×12 (22:00)
[2018-03-15] MEDS ORDERED: AMINO ACID IV SCH ×12 (22:00)
[2018-03-15] MEDS ORDERED: DEXTROSE 70% IV SCH ×12 (22:00)
[2018-03-16 03:21] VITALS: BP 98/52
[2018-03-16 07:00] VITALS: BP 101/54
[2018-03-16] MEDS: IPRATRPIUM/ALBUTEROL 0.5/2.5MG 3 ML NEBU. NEB SCH ×4 (07:13→20:13)
[2018-03-16] MEDS: fentaNYL PF VIAL 100 MCG/2 ML VIAL IV PRN ×2 (07:39→14:30)
--- NOTE | 2018-03-16 09:00 | PDOC ---
PULMONARY PROGRESS NOTES Subjective EXTUBATED 03/13 NO RESP DISTRESS Vitals Vital Signs Date Time Temp Pulse Resp B/P (MAP) Pulse Ox O2 Delivery O2 Flow Rate FiO2 03/16/18 08:17 Room Air 03/16/18 07:00 99.2 73 18 101/54 (70) 97 99.2 03/15/18 18:22 2.0 Lungs: Clear Cardiovascular: S1, S2 Abdomen: Soft Skin: Warm, Dry Labs Laboratory Tests Test 03/15/18 05:30 White Blood Count 8.9 x10^3/uL (4.0-11.0) Red Blood Count 3.55 x10^6/uL (3.50-5.40) Hemoglobin 10.9 g/dL (12.0-15.5) Hematocrit 32.2 % (36.0-47.0) Mean Corpuscular Volume 91 fL (79-100) Mean Corpuscular Hemoglobin 31 pg (25-35) Mean Corpuscular Hemoglobin Concent 34 g/dL (31-37) Red Cell Distribution Width 15.1 % (11.5-14.5) Platelet Count 180 x10^3/uL (140-400) Neutrophils (%) (Auto) 57 % (31-73) Lymphocytes (%) (Auto) 15 % (24-48) Monocytes (%) (Auto) 18 % (0-9) Eosinophils (%) (Auto) 10 % (0-3) Basophils (%) (Auto) 0 % (0-3) Neutrophils # (Auto) 5.1 x10^3uL (1.8-7.7) Lymphocytes # (Auto) 1.3 x10^3/uL (1.0-4.8) Monocytes # (Auto) 1.6 x10^3/uL (0.0-1.1) Eosinophils # (Auto) 0.9 x10^3/uL (0.0-0.7) Basophils # (Auto) 0.0 x10^3/uL (0.0-0.2) Sodium Level 136 mmol/L (136-145) Potassium Level 3.9 mmol/L (3.5-5.1) Chloride Level 104 mmol/L (98-107) Carbon Dioxide Level 24 mmol/L (21-32) Anion Gap 8 (6-14) Blood Urea Nitrogen 10 mg/dL (7-20) Creatinine 0.4 mg/dL (0.6-1.0) Estimated GFR (Cockcroft-Gault) 157.8 Glucose Level 120 mg/dL (70-99) Calcium Level 8.4 mg/dL (8.5-10.1) Ionized Calcium 1.14 mmol/L (1.13-1.32) Phosphorus Level 3.3 mg/dL (2.6-4.7) Magnesium Level 1.6 mg/dL (1.8-2.4) Albumin 2.7 g/dL (3.4-5.0) Medications Active Scripts Medications Dose Route/Sig Max Daily Dose Days Date Category Prilosec Otc (Omeprazole Magnesium) 20 Mg Tablet.dr 1 Tab PO DAILY 03/07/18 Reported Simvastatin 20 Mg Tablet 1 Tab PO QHS 03/07/18 Reported Impression . 1. respiratory failure Expected post-op multifactorial EXTUBATED 03/13 2. GI bleed stabilized 3. cirrhosis 4. hx resected hepatocellular carcinoma 5. ENCEPHALOPATHY SUSPECT METABOLIC 6. DYSAPHIA PER SPEECH Plan . PT MUCH BETTER ADVANCE DIET PER SPEECH SPOKE WITH DECREASE 02 PT/OT WILL SEE CORINA CALVO MD Mar 16, 2018 09:00
[2018-03-16] MEDS: PANTOPRAZOLE IV PUSH 40 MG VIAL. IVP SCH (09:22)
--- NOTE | 2018-03-16 09:30 | PDOC ---
SURGICAL PROGRESS NOTE Subjective up in chair pain managed Vital Signs Vital Signs Date Time Temp Pulse Resp B/P (MAP) Pulse Ox O2 Delivery O2 Flow Rate FiO2 03/16/18 08:17 Room Air 03/16/18 07:00 99.2 73 18 101/54 (70) 97 99.2 03/15/18 18:22 2.0 I&O Intake and Output 03/16/18 07:01 Intake Total 100 ml Output Total 2575 ml Balance -2475 ml Intake Oral 0 ml IV Total 100 ml Output Urine Total 1700 ml Drainage Total 875 ml General: Alert, Oriented X3, Cooperative, No acute distress Abdomen: Soft, Other ( gtube clamped, drainage from old tube site, serous) Labs Laboratory Tests Test 03/15/18 05:30 White Blood Count 8.9 x10^3/uL (4.0-11.0) Red Blood Count 3.55 x10^6/uL (3.50-5.40) Hemoglobin 10.9 g/dL (12.0-15.5) Hematocrit 32.2 % (36.0-47.0) Mean Corpuscular Volume 91 fL (79-100) Mean Corpuscular Hemoglobin 31 pg (25-35) Mean Corpuscular Hemoglobin Concent 34 g/dL (31-37) Red Cell Distribution Width 15.1 % (11.5-14.5) Platelet Count 180 x10^3/uL (140-400) Neutrophils (%) (Auto) 57 % (31-73) Lymphocytes (%) (Auto) 15 % (24-48) Monocytes (%) (Auto) 18 % (0-9) Eosinophils (%) (Auto) 10 % (0-3) Basophils (%) (Auto) 0 % (0-3) Neutrophils # (Auto) 5.1 x10^3uL (1.8-7.7) Lymphocytes # (Auto) 1.3 x10^3/uL (1.0-4.8) Monocytes # (Auto) 1.6 x10^3/uL (0.0-1.1) Eosinophils # (Auto) 0.9 x10^3/uL (0.0-0.7) Basophils # (Auto) 0.0 x10^3/uL (0.0-0.2) Sodium Level 136 mmol/L (136-145) Potassium Level 3.9 mmol/L (3.5-5.1) Chloride Level 104 mmol/L (98-107) Carbon Dioxide Level 24 mmol/L (21-32) Anion Gap 8 (6-14) Blood Urea Nitrogen 10 mg/dL (7-20) Creatinine 0.4 mg/dL (0.6-1.0) Estimated GFR (Cockcroft-Gault) 157.8 Glucose Level 120 mg/dL (70-99) Calcium Level 8.4 mg/dL (8.5-10.1) Ionized Calcium 1.14 mmol/L (1.13-1.32) Phosphorus Level 3.3 mg/dL (2.6-4.7) Magnesium Level 1.6 mg/dL (1.8-2.4) Albumin 2.7 g/dL (3.4-5.0) Problem List Problems Medical Problems: (1) Hypotension Status: Acute Assessment/Plan supportive measures noted drainage for old tube site, monitor drainage amount MARGARITO PECK APRN Mar 16, 2018 09:30
--- NOTE | 2018-03-16 09:44 | PDOC ---
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 History of Present Illness History of Present Illness Extensive notes reviewed Intubated x 7 days, npo now, either fialed swallow or as per GS rec HAs TPN voa RT central line NO fevers Wants to go home soon AMbulates good Dressing dry, G tube in plaCE DW GS mid level, wait for GS to ok diet even if she passes [employer] - dw [facility] Larry indwelling sec to retention from her icu stay nO fevers PLAN COnt tpn fo now OK to draw Await GS rounds re diet NO PT needs COnt iV Abx Dc larry Vitals Vitals Vital Signs Date Time Temp Pulse Resp B/P (MAP) Pulse Ox O2 Delivery O2 Flow Rate FiO2 03/16/18 08:17 Room Air 03/16/18 07:00 99.2 73 18 101/54 (70) 97 99.2 03/15/18 18:22 2.0 Physical Exam Physical Exam intubated, sedated General: Alert, Oriented X3, Cooperative, No acute distress Heart: Regular rate, No murmurs Lungs: Clear Abdomen: Soft, Other Extremities: No edema Skin: No rashes, No breakdown Review of Systems Review of Systems no fevers, no n.v, no cp, no soa, no abd pain, on depression Assessment and Plan Assessmemt and Plan Problems Medical Problems: (1) Hypotension Status: Acute Comment Review of Relevant I have reviewed the following items scottie (where applicable) has been applied. Labs Laboratory Tests Test 03/15/18 05:30 White Blood Count 8.9 x10^3/uL (4.0-11.0) Red Blood Count 3.55 x10^6/uL (3.50-5.40) Hemoglobin 10.9 g/dL (12.0-15.5) Hematocrit 32.2 % (36.0-47.0) Mean Corpuscular Volume 91 fL (79-100) Mean Corpuscular Hemoglobin 31 pg (25-35) Mean Corpuscular Hemoglobin Concent 34 g/dL (31-37) Red Cell Distribution Width 15.1 % (11.5-14.5) Platelet Count 180 x10^3/uL (140-400) Neutrophils (%) (Auto) 57 % (31-73) Lymphocytes (%) (Auto) 15 % (24-48) Monocytes (%) (Auto) 18 % (0-9) Eosinophils (%) (Auto) 10 % (0-3) Basophils (%) (Auto) 0 % (0-3) Neutrophils # (Auto) 5.1 x10^3uL (1.8-7.7) Lymphocytes # (Auto) 1.3 x10^3/uL (1.0-4.8) Monocytes # (Auto) 1.6 x10^3/uL (0.0-1.1) Eosinophils # (Auto) 0.9 x10^3/uL (0.0-0.7) Basophils # (Auto) 0.0 x10^3/uL (0.0-0.2) Sodium Level 136 mmol/L (136-145) Potassium Level 3.9 mmol/L (3.5-5.1) Chloride Level 104 mmol/L (98-107) Carbon Dioxide Level 24 mmol/L (21-32) Anion Gap 8 (6-14) Blood Urea Nitrogen 10 mg/dL (7-20) Creatinine 0.4 mg/dL (0.6-1.0) Estimated GFR (Cockcroft-Gault) 157.8 Glucose Level 120 mg/dL (70-99) Calcium Level 8.4 mg/dL (8.5-10.1) Ionized Calcium 1.14 mmol/L (1.13-1.32) Phosphorus Level 3.3 mg/dL (2.6-4.7) Magnesium Level 1.6 mg/dL (1.8-2.4) Albumin 2.7 g/dL (3.4-5.0) Microbiology 03/09/18 Urine Culture - Final, Complete 03/09/18 Urine Culture Result 1 (JEFFRY) - Final, Complete Medications Current Medications Sodium Chloride 500 ml @ 500 mls/hr Q1H IV Last administered on 03/07/18at 18: 29; Start 03/07/18 at 18:30; Stop 03/07/18 at 18:42; Status DC Pantoprazole Sodium (PROTONIX VIAL for IV PUSH) 80 mg 1X ONCE IVP Last administered on 03/07/18at 19:00; Start 03/07/18 at 18:30; Stop 03/07/18 at 18 :32; Status DC Octreotide Acetate 500 mcg/ Sodium Chloride 101 ml @ 5.05 mls/hr CONT PRN IV SEE I/O RECORD Last administered on 03/09/18at 10:38; Start 03/07/18 at 19:30; Stop 03/09/18 at 11:47; Status DC Ondansetron HCl (Zofran) 4 mg PRN Q8HRS PRN IV NAUSEA/VOMITING; Start at 19:15; Stop 03/08/18 at 19:14; Status DC Iohexol (Omnipaque 300 Mg/ml) 75 ml 1X ONCE IV Last administered on at 20:32; Start 03/07/18 at 19:15; Stop 03/07/18 at 19:16; Status DC Info (CONTRAST GIVEN -- Rx MONITORING) 1 each PRN DAILY PRN MC SEE COMMENTS; Start 03/07/18 at 19:15; Stop 03/09/18 at 19:14; Status DC Propofol 20 ml @ As Directed STK-MED ONCE IV ; Start 03/07/18 at 22:37; Stop 03/07/18 at 22:38; Status DC Pantoprazole Sodium 80 mg/ Sodium Chloride 100 ml @ 10 mls/hr Q10H IV Last administered on 03/10/18at 22:46; Start 03/07/18 at 23:00; Stop 03/11/18 at 11:10 ; Status DC Ringer's Solution 1,000 ml @ 200 mls/hr Q5H IV Last administered on at 20:41; Start 03/07/18 at 23:15; Stop 03/09/18 at 10:58; Status DC Dopamine HCl/ Dextrose 250 ml @ 4.461 mls/ hr CONT PRN IV SEE I/O RECORD; Start 03/08/18 at 09:30; Stop 03/15/18 at 16:14; Status DC Lidocaine/Sodium Bicarbonate (Buffered Lidocaine 1%) 3 ml STK-MED ONCE .ROUTE ; Start 03/08/18 at 11:47; Stop 03/08/18 at 11:48; Status DC Iohexol (Omnipaque 300 Mg/ml) 100 ml STK-MED ONCE .ROUTE ; Start 03/08/18 at 11 :47; Stop 03/08/18 at 11:48; Status DC Heparin Sodium/ Sodium Chloride 1,000 ml @ As Directed STK-MED ONCE .ROUTE ; Start 03/08/18 at 11:47; Stop 03/08/18 at 11:48; Status DC Midazolam HCl (Versed) 2 mg STK-MED ONCE .ROUTE ; Start 03/08/18 at 12:06; Stop 03/08/18 at 12:07; Status DC Fentanyl Citrate (Fentanyl 2ml Vial) 100 mcg STK-MED ONCE .ROUTE ; Start at 12:06; Stop 03/08/18 at 12:07; Status DC Heparin Sodium/ Sodium Chloride (HEPARIN for ARTERIAL LINE FLUSH) 1,000 unit 1X ONCE IART Last administered on 03/08/18at 12:30; Start 03/08/18 at 12:30; Stop 03/08/18 at 12:31; Status DC Lidocaine/Sodium Bicarbonate (Buffered Lidocaine 1%) 3 ml 1X ONCE IJ Last administered on 03/08/18at 12:15; Start 03/08/18 at 12:15; Stop 03/08/18 at 12 :21; Status DC Midazolam HCl (Versed) 2 mg 1X ONCE IV ; Start 03/08/18 at 12:15; Stop at 12:21; Status DC Fentanyl Citrate (Fentanyl 2ml Vial) 100 mcg 1X ONCE IV Last administered on 03/08/18at 12:15; Start 03/08/18 at 12:15; Stop 03/08/18 at 12:21; Status DC Iohexol (Omnipaque 300 Mg/ml) 100 ml 1X ONCE IART Last administered on at 12:15; Start 03/08/18 at 12:15; Stop 03/08/18 at 12:21; Status DC Phenylephrine HCl (Wander-Synephrine Inj) 10 mg STK-MED ONCE .ROUTE ; Start at 13:25; Stop 03/08/18 at 13:26; Status DC Succinylcholine Chloride (Anectine) 200 mg STK-MED ONCE .ROUTE ; Start at 14:55; Stop 03/08/18 at 14:56; Status DC Propofol 20 ml @ As Directed STK-MED ONCE IV ; Start 03/08/18 at 14:55; Stop 03/08/18 at 14:56; Status DC Ketamine HCl (Ketamine) 50 mg STK-MED ONCE .ROUTE ; Start 03/08/18 at 14:55; Stop 03/08/18 at 14:57; Status DC Dexamethasone Sodium Phosphate (Decadron) 20 mg STK-MED ONCE .ROUTE ; Start at 14:56; Stop 03/08/18 at 14:58; Status DC Ondansetron HCl (Zofran) 4 mg STK-MED ONCE .ROUTE ; Start 03/08/18 at 14:57; Stop 03/08/18 at 14:58; Status DC Lidocaine HCl (Lidocaine Pf 2% Vial) 5 ml STK-MED ONCE .ROUTE ; Start 03/08/18 at 14:57; Stop 03/08/18 at 14:58; Status DC Propofol 20 ml @ As Directed STK-MED ONCE IV ; Start 03/08/18 at 14:57; Stop 03/08/18 at 14:58; Status DC Fentanyl Citrate (Fentanyl 5ml Vial) 250 mcg STK-MED ONCE .ROUTE ; Start at 15:54; Stop 03/08/18 at 15:55; Status DC Rocuronium Duke (Zemuron) 100 mg STK-MED ONCE .ROUTE ; Start 03/08/18 at 15: 55; Stop 03/08/18 at 15:57; Status DC Cefazolin Sodium 100 ml @ As Directed STK-MED ONCE IV ; Start 03/08/18 at 15: 57; Stop 03/08/18 at 15:59; Status DC Cellulose (Surgicel Hemostat 4x8) 1 each STK-MED ONCE .ROUTE Last administered on 03/08/18at 15:53; Start 03/08/18 at 16:27; Stop 03/08/18 at 16:28; Status DC Cellulose (Surgicel Hemostat 2x3) 1 each STK-MED ONCE .ROUTE Last administered on 03/08/18at 15:53; Start 03/08/18 at 16:42; Stop 03/08/18 at 16:44; Status DC Cellulose (Surgicel Hemostat 2x14) 1 each STK-MED ONCE .ROUTE ; Start 03/08/18 at 16:42; Stop 03/08/18 at 16:44; Status DC Cellulose (Surgicel Hemostat 4x8) 1 each STK-MED ONCE .ROUTE Last administered on 03/08/18at 15:53; Start 03/08/18 at 16:42; Stop 03/08/18 at 16:44; Status DC Calcium Chloride (Calcium Chloride) 1,000 mg STK-MED ONCE .ROUTE ; Start at 17:03; Stop 03/08/18 at 17:04; Status DC Calcium Chloride (Calcium Chloride) 1,000 mg STK-MED ONCE .ROUTE ; Start at 17:03; Stop 03/08/18 at 17:04; Status DC Sodium Bicarbonate (Sodium Bicarb Adult 8.4% Syr) 50 meq STK-MED ONCE .ROUTE ; Start 03/08/18 at 17:03; Stop 03/08/18 at 17:04; Status DC Sodium Bicarbonate (Sodium Bicarb Adult 8.4% Syr) 50 meq STK-MED ONCE .ROUTE ; Start 03/08/18 at 17:03; Stop 03/08/18 at 17:04; Status DC Epinephrine HCl (EPINEPHrine SYRINGE) 1 mg STK-MED ONCE .ROUTE ; Start at 17:03; Stop 03/08/18 at 17:04; Status DC Albumin Human 500 ml @ As Directed STK-MED ONCE IV ; Start 03/08/18 at 17:03; Stop 03/08/18 at 17:04; Status DC Sodium Bicarbonate (Sodium Bicarb Adult 8.4% Syr) 50 meq STK-MED ONCE .ROUTE ; Start 03/08/18 at 17:07; Stop 03/08/18 at 17:08; Status DC Sodium Bicarbonate (Sodium Bicarb Adult 8.4% Syr) 50 meq STK-MED ONCE .ROUTE ; Start 03/08/18 at 17:07; Stop 03/08/18 at 17:08; Status DC Cellulose (Surgicel Hemostat 4x8) 1 each STK-MED ONCE TP Last administered on 03/08/18at 15:53; Start 03/08/18 at 15:53; Stop 03/08/18 at 17:40; Status DC Sodium Bicarbonate (Sodium Bicarb Adult 8.4% Syr) 50 meq STK-MED ONCE .ROUTE ; Start 03/08/18 at 17:35; Stop 03/08/18 at 17:37; Status DC Calcium Chloride (Calcium Chloride) 1,000 mg STK-MED ONCE .ROUTE ; Start at 17:35; Stop 03/08/18 at 17:37; Status DC Albumin Human 500 ml @ As Directed STK-MED ONCE IV ; Start 03/08/18 at 17:41; Stop 03/08/18 at 17:43; Status DC Norepinephrine Bitartrate 250 ml @ 1.875 mls/ hr 1X ONCE IV Last administered on 03/08/18at 21:00; Start 03/08/18 at 17:45; Stop 03/09/18 at 08 :10; Status DC Vasopressin 40 unit/Dextrose 102 ml @ 6 mls/hr 1X ONCE IV Last administered on 03/08/18at 20:41; Start 03/08/18 at 18:00; Stop 03/09/18 at 10:59; Status DC Calcium Chloride (Calcium Chloride) 1,000 mg STK-MED ONCE .ROUTE ; Start at 17:57; Stop 03/08/18 at 17:59; Status DC Sodium Bicarbonate (Sodium Bicarb Adult 8.4% Syr) 50 meq STK-MED ONCE .ROUTE ; Start 03/08/18 at 18:04; Stop 03/08/18 at 18:06; Status DC Sodium Bicarbonate (Sodium Bicarb Adult 8.4% Syr) 50 meq STK-MED ONCE .ROUTE ; Start 03/08/18 at 18:05; Stop 03/08/18 at 18:06; Status DC Sodium Bicarbonate (Sodium Bicarb Adult 8.4% Syr) 50 meq STK-MED ONCE .ROUTE ; Start 03/08/18 at 18:07; Stop 03/08/18 at 18:08; Status DC Sodium Bicarbonate (Sodium Bicarb Adult 8.4% Syr) 50 meq STK-MED ONCE .ROUTE ; Start 03/08/18 at 18:07; Stop 03/08/18 at 18:08; Status DC Epinephrine HCl (EPINEPHrine SYRINGE) 1 mg STK-MED ONCE .ROUTE ; Start at 18:40; Stop 03/08/18 at 18:41; Status DC Prochlorperazine Edisylate (Compazine) 10 mg STK-MED ONCE .ROUTE ; Start at 18:42; Stop 03/08/18 at 18:44; Status DC Fentanyl Citrate (Fentanyl 2ml Vial) 100 mcg STK-MED ONCE .ROUTE ; Start at 18:43; Stop 03/08/18 at 18:44; Status DC Sevoflurane (Ultane) 90 ml STK-MED ONCE IH ; Start 03/08/18 at 18:48; Stop at 18:49; Status DC Cellulose (Surgicel Hemostat 2x3) 1 each STK-MED ONCE TP Last administered on 03/08/18at 15:55; Start 03/08/18 at 15:55; Stop 03/08/18 at 19:04; Status DC Cellulose (Surgicel Hemostat 2x3) 1 each STK-MED ONCE TP Last administered on 03/08/18at 15:53; Start 03/08/18 at 15:53; Stop 03/08/18 at 19:04; Status DC Propofol 100 ml @ As Directed STK-MED ONCE IV ; Start 03/08/18 at 19:56; Stop 03/08/18 at 19:58; Status DC Famotidine (Pepcid) 20 mg BID PO ; Start 03/08/18 at 21:00; Stop 03/09/18 at 08:11; Status DC Sodium Chloride (Normal Saline Flush) 3 ml QSHIFT PRN IV AFTER MEDS AND BLOOD DRAWS; Start 03/08/18 at 20:45; Status Cancel Morphine Sulfate (Morphine Sulfate) 1 mg PRN Q1HR PRN IV PAIN Last administered on 03/08/18at 21:12; Start 03/08/18 at 20:45; Stop 03/10/18 at 18: 45; Status DC Ondansetron HCl (Zofran) 4 mg PRN Q6HRS PRN IV NAUESA, 1ST CHOICE; Start 03/08 at 20:45 Fentanyl Citrate 30 ml @ 0 mls/hr CONT PRN IV SEE PROTOCOL Last administered on 03/09/18at 23:16; Start 03/08/18 at 22:15; Stop 03/15/18 at 16:15; Status DC Fentanyl Citrate (Fentanyl 2ml Vial) 25 mcg PRN Q1HR PRN IV SEE COMMENTS; Start 03/08/18 at 22:15; Stop 03/10/18 at 18:45; Status DC Fentanyl Citrate (Fentanyl 2ml Vial) 50 mcg PRN Q1HR PRN IV SEE COMMENTS Last administered on 03/08/18at 22:41; Start 03/08/18 at 22:15; Stop 03/12/18 at 16: 26; Status DC Chlorhexidine Gluconate (Peridex) 15 ml BID MM Last administered on 03/13/18at 09 :00; Start 03/09/18 at 09:00; Stop 03/13/18 at 12:19; Status DC Midazolam HCl 100 ml @ 0 mls/hr CONT PRN IV SEE PROTOCOL Last administered on 03/09/18at 21:43; Start 03/08/18 at 22:15; Stop 03/10/18 at 18:45; Status DC Factor IX (Pha) (Novoseven Rt) 1 mg 1X ONCE IV Last administered on at 01:09; Start 03/09/18 at 01:00; Stop 03/09/18 at 01:01; Status DC Lorazepam (Ativan) 2 mg STK-MED ONCE .ROUTE ; Start 03/09/18 at 01:15; Stop at 01:16; Status DC Norepinephrine Bitartrate 250 ml @ 1.875 mls/ hr CONT PRN IV SEE I/O RECORD Last administered on 03/09/18at 17:41; Start 03/09/18 at 01:45; Stop 03/15/18 at 16:14; Status DC Cefazolin Sodium/ Dextrose 50 ml @ 100 mls/hr 1X PREOP PRN IV PRIOR TO PROCEDURE Last administered on 03/09/18at 02:00; Start 03/09/18 at 02:00; Stop 03/10/18 at 01:59; Status DC Rocuronium Duke (Zemuron) 100 mg STK-MED ONCE .ROUTE ; Start 03/09/18 at 01: 57; Stop 03/09/18 at 01:59; Status DC Fentanyl Citrate (Fentanyl 5ml Vial) 250 mcg STK-MED ONCE .ROUTE ; Start at 02:13; Stop 03/09/18 at 02:14; Status DC Cellulose (Surgicel Hemostat 2x3) 1 each STK-MED ONCE .ROUTE ; Start 03/09/18 at 02:23; Stop 03/09/18 at 02:25; Status DC Cellulose (Surgicel Hemostat 2x14) 1 each STK-MED ONCE .ROUTE ; Start 03/09/18 at 02:23; Stop 03/09/18 at 02:25; Status DC Cellulose (Surgicel Hemostat 4x8) 1 each STK-MED ONCE .ROUTE Last administered on 03/09/18at 02:04; Start 03/09/18 at 02:23; Stop 03/09/18 at 02:25; Status DC Sodium Chloride (Normal Saline Flush) 3 ml QSHIFT PRN IV AFTER MEDS AND BLOOD DRAWS; Start 03/09/18 at 03:30 Cellulose (Surgicel Hemostat 4x8) 1 each STK-MED ONCE TP Last administered on 03/09/18at 02:04; Start 03/09/18 at 02:04; Stop 03/09/18 at 03:20; Status DC Cellulose (Surgicel Hemostat 4x8) 1 each STK-MED ONCE TP Last administered on 03/09/18at 02:04; Start 03/09/18 at 02:04; Stop 03/09/18 at 03:20; Status DC Sodium Bicarbonate (Sodium Bicarb Adult 8.4% Syr) 150 meq STK-MED ONCE .ROUTE ; Start 03/08/18 at 10:00; Stop 03/09/18 at 10:30; Status DC Dopamine HCl/ Dextrose (DOPamine 400MG/ 250ML PREMIX) 400 mg STK-MED ONCE IV ; Start 03/08/18 at 10:00; Stop 03/09/18 at 10:30; Status DC Potassium Chloride/Dextrose 1,000 ml @ 100 mls/hr Q10H IV Last administered on 03/09/18at 11:22; Start 03/09/18 at 11:00; Stop 03/09/18 at 20:59; Status DC Magnesium Sulfate/ Dextrose 100 ml @ 25 mls/hr 1X ONCE IV Last administered on 03/09/18at 13:45; Start 03/09/18 at 12:45; Stop 03/09/18 at 16:44; Status DC Potassium Chloride/Water 50 ml @ 50 mls/hr 1X ONCE IV Last administered on at 13:43; Start 03/09/18 at 12:45; Stop 03/09/18 at 13:44; Status DC Magnesium Sulfate 50 ml @ 25 mls/hr PRN DAILY PRN IV for Mag < 1.7 on am labs Last administered on 03/10/18at 06:17; Start 03/09/18 at 13:45 Sodium Chloride 500 ml @ 500 mls/hr QIDPRN PRN IV U/O <30 cc/hr Last administered on 03/10/18at 09:00; Start 03/09/18 at 19:45 Info (Tpn Per Pharmacy) 1 each PRN DAILY PRN MC SEE COMMENTS; Start 03/10/18 at 09:00; Stop 03/10/18 at 12:42; Status DC Potassium Phosphate 13.6 mmol/Dextrose 104.5333 ml @ 52.267 m... Q2H IV Last administered on 03/10/18at 10:34; Start 03/10/18 at 10:00; Stop 03/10/18 at 11:59; Status DC Amino Acids/ Glycerin/ Electrolytes 1,000 ml @ 100 mls/hr Q10H IV Last administered on 03/11/18at 21:42; Start 03/10/18 at 13:00; Stop 03/12/18 at 21:59; Status DC Ringer's Solution 500 ml @ 500 mls/hr 1X ONCE IV Last administered on at 18:55; Start 03/10/18 at 19:45; Stop 03/10/18 at 20:44; Status DC Dextrose (Dextrose 50%-Water Syringe) 12.5 gm PRN Q15MIN PRN IV SEE COMMENTS; Start 03/11/18 at 07:00 Ringer's Solution 500 ml @ 500 mls/hr Q1H PRN IV FLUID LOSS Last administered on 03/13/18at 00:39; Start 03/11/18 at 07:00 Pantoprazole Sodium (PROTONIX VIAL for IV PUSH) 40 mg DAILY IVP Last administered on 03/16/18at 09:22; Start 03/12/18 at 09:00 Potassium Phosphate 13.6 mmol/Dextrose 104.5333 ml @ 52.267 m... Q2H IV Last administered on 03/11/18at 21:42; Start 03/11/18 at 14:00; Stop 03/11/18 at 19:59; Status DC Info (Tpn Per Pharmacy) 1 each PRN DAILY PRN MC SEE COMMENTS Last administered on 03/15/18at 10:55; Start 03/12/18 at 09:30 Potassium Phosphate 13.6 mmol/Sodium Chloride 104.5333 ml @ 52.267 m... Q2H IV Last administered on 03/12/18 13:30; Start 03/12/18 at 09:30; Stop 03/12/18 at 15:29; Status DC Albumin Human 100 ml @ 100 mls/hr TID IV Last administered on 03/14/18 09:49; Start 03/12/18 at 14:00; Stop 03/14/18 at 09:59; Status DC Info (Tpn Per Pharmacy) 1 each PRN DAILY PRN MC SEE COMMENTS; Start 03/12/18 at 11:00; Status UNV Sodium Acetate 90 meq/Potassium Chloride 50 meq/ Potassium Phosphate 13.6 mmol/ Magnesium Sulfate 10 meq/ Calcium Gluconate 10 meq/ Multivitamins 10 ml/Chromium / Copper/Manganese/ Seleni/Zn 1 ml/ Total Parenteral Nutrition/Amino Acids/ Dextrose/ Fat Emulsion Intravenous 1,512 ml @ 63 mls/hr TPN CONT IV ; Start at 22:00; Stop 03/12/18 at 22:00; Status DC Sodium Acetate 60 meq/Potassium Chloride 50 meq/ Potassium Phosphate 13.6 mmol/ Magnesium Sulfate 10 meq/ Calcium Gluconate 10 meq/ Multivitamins 10 ml/Chromium / Copper/Manganese/ Seleni/Zn 1 ml/ Total Parenteral Nutrition/Amino Acids/ Dextrose/ Fat Emulsion Intravenous 1,512 ml @ 63 mls/hr TPN CONT IV Last administered on 03/12/18at 21:12; Start 03/12/18 at 22:00; Stop 03/13/18 at 21:59; Status DC Magnesium Sulfate 50 ml @ 25 mls/hr 1X ONCE IV Last administered on 03/13/18at 09:30; Start 03/13/18 at 09:30; Stop 03/13/18 at 11:29; Status DC Epinephrine (S2 Racepinephrine) 0.5 ml 1X ONCE NEB Last administered on at 11:30; Start 03/13/18 at 11:30; Stop 03/13/18 at 11:31; Status DC Potassium Phosphate 13.6 mmol/Sodium Chloride 104.5333 ml @ 52.267 m... Q2H IV Last administered on 03/13/18at 15:00; Start 03/13/18 at 13:00; Stop 03/13/18 at 16:59; Status DC Sodium Acetate 60 meq/Potassium Chloride 40 meq/ Potassium Phosphate 25 mmol/ Magnesium Sulfate 15 meq/Calcium Gluconate 5 meq/ Multivitamins 10 ml/Chromium/ Copper/Manganese/ Seleni/Zn 1 ml/ Total Parenteral Nutrition/Amino Acids/ Dextrose/ Fat Emulsion Intravenous 1,512 ml @ 63 mls/hr TPN CONT IV Last administered on 03/13/18at 21:16; Start 03/13/18 at 22:00; Stop 03/14/18 at 21:59; Status DC Iohexol (Omnipaque 300 Mg/ml) 75 ml 1X ONCE IV ; Start 03/13/18 at 12:45; Stop 03/13/18 at 12:46; Status DC Info (CONTRAST GIVEN -- Rx MONITORING) 1 each PRN DAILY PRN MC SEE COMMENTS; Start 03/13/18 at 12:45; Stop 03/15/18 at 12:45; Status DC Albuterol/ Ipratropium (Duoneb) 3 ml RTQID NEB Last administered on 03/16/18at 07 :13; Start 03/13/18 at 18:30 Fentanyl Citrate (Fentanyl 2ml Vial) 50 mcg PRN Q2HR PRN IV PAIN Last administered on 03/16/18at 07:39; Start 03/14/18 at 08:15 Potassium Chloride/Sodium Chloride 1,000 ml @ 75 mls/hr 1X ONCE IV ; Start 03/14/18 at 08:15; Stop 03/14/18 at 21:34; Status UNV Calcium Gluconate 1000 mg/Dextrose 110 ml @ 220 mls/hr 1X ONCE IV Last administered on 03/14/18at 09:36; Start 03/14/18 at 09:00; Stop 03/14/18 at 09:29; Status DC Iohexol (Omnipaque 300 Mg/ml) 75 ml 1X ONCE IV ; Start 03/14/18 at 08:30; Stop 03/14/18 at 08:31; Status DC Potassium Chloride/Water 50 ml @ 50 mls/hr Q1H IV Last administered on at 10:00; Start 03/14/18 at 09:00; Stop 03/14/18 at 10:59; Status DC Sodium Acetate 60 meq/Potassium Chloride 40 meq/ Potassium Acetate 10 meq/ Potassium Phosphate 25 mmol/ Magnesium Sulfate 15 meq/Calcium Gluconate 5 meq/ Multivitamins 10 ml/Chromium/ Copper/Manganese/ Seleni/Zn 1 ml/ Total Parenteral Nutrition/Amino Acids/Dextrose/ Fat Emulsion Intravenous 1,512 ml @ 63 mls/hr TPN CONT IV Last administered on 03/14/18at 21:51; Start 03/14/18 at 22 :00; Stop 03/15/18 at 21:59; Status DC Magnesium Sulfate/ Dextrose 100 ml @ 100 mls/hr 1X ONCE IV Last administered on 03/15/18at 08:59; Start 03/15/18 at 09:00; Stop 03/15/18 at 09:59; Status DC Sodium Chloride 30 meq/Sodium Acetate 60 meq/ Potassium Chloride 40 meq/ Potassium Acetate 10 meq/Potassium Phosphate 25 mmol/ Magnesium Sulfate 20 meq/ Calcium Gluconate 5 meq/ Multivitamins 10 ml/Chromium/ Copper/Manganese/ Seleni/ Zn 1 ml/ Total Parenteral Nutrition/Amino Acids/Dextrose/ Fat Emuls... 1,512 ml @ 63 mls/hr TPN CONT IV Last administered on 03/15/18at 21:48; Start 03/15/18 at 22:00; Stop 03/16/18 at 21:59 Active Scripts Active Reported Prilosec Otc (Omeprazole Magnesium) 20 Mg Tablet. 1 Tab PO DAILY Simvastatin 20 Mg Tablet 1 Tab PO QHS Vitals/I & O Vital Sign - Last 24 Hours 03/15/18 03/15/18 03/15/18 03/15/18 10:00 12:21 13:40 13:58 Temp 99.0 99.6 99.0 99.6 Pulse 77 80 Resp 16 16 B/P (MAP) 98/66 (77) 107/59 (75) Pulse Ox 97 98 98 O2 Delivery Room Air Room Air Room Air Room Air 03/15/18 03/15/18 03/15/18 03/15/18 15:00 15:23 17:52 18:22 Temp 98.8 98.8 Pulse 83 Resp 16 B/P (MAP) 108/57 (74) Pulse Ox 99 99 O2 Delivery Room Air Room Air Room Air O2 Flow Rate 2.0 03/15/18 03/15/18 03/15/18 03/15/18 19:00 20:00 20:09 21:48 Temp 99.6 99.6 Pulse 79 Resp 18 B/P (MAP) 103/58 (73) Pulse Ox 99 99 O2 Delivery Room Air Room Air Room Air Room Air 03/15/18 03/16/18 03/16/18 03/16/18 23:00 03:21 07:00 07:15 Temp 99.4 99.7 99.2 99.4 99.7 99.2 Pulse 78 81 73 Resp 18 18 18 B/P (MAP) 101/56 (71) 98/52 (67) 101/54 (70) Pulse Ox 95 98 97 O2 Delivery Room Air Room Air Room Air Room Air 03/16/18 03/16/18 07:39 08:17 O2 Delivery Room Air Room Air Intake and Output 03/15/18 03/15/18 03/16/18 15:01 23:01 07:01 Intake Total 100 ml Output Total 425 ml 850 ml 1300 ml Balance -325 ml -850 ml -1300 ml AIDEE VELASQUEZ MD Mar 16, 2018 09:44
[2018-03-16 11:00] VITALS: BP 101/59
--- NOTE | 2018-03-16 13:03 | PDOC ---
Subjective: Subjective: Pain managed, stooled yesterday, wonders about eating. Objective: Objective: Briefly d/w [employer]SEL[employer] - swallow improved today, could have pureed diet. On TPN and IV PPI. Vital Signs: Vital Signs Date Time Temp Pulse Resp B/P (MAP) Pulse Ox O2 Delivery O2 Flow Rate FiO2 03/16/18 11:18 99 Room Air 03/16/18 07:00 99.2 73 18 101/54 (70) 99.2 03/15/18 18:22 2.0 PE: GEN: NAD, up to chair LUNGS: CTAB HEART: RRR ABD: ostomy bag over TERE site w/ drainage, G tube, soft NEURO/PSYCH: A & O 3 A/P: S/p splenectomy H/o HCC Dysphagia - better -- Would assume defer diet decision to surgery, will review w/ Dr. Grayson. NASIR NGUYEN Mar 16, 2018 13:03
[2018-03-16 13:07] LABS: ALBUMIN 2.7 g/dL (3.4-5.0); ALBUMIN/GLOBULIN RATIO 0.6 (1.0-1.7); CALCIUM 8.4 mg/dL (8.5-10.1); CREATININE 0.5 mg/dL (0.6-1.0); MAGNESIUM 1.9 mg/dL (1.8-2.4); PHOSPHORUS 3.2 mg/dL (2.6-4.7); TOTAL BILIRUBIN 1.5 mg/dL (0.2-1.0); TOTAL PROTEIN 7.4 g/dL (6.4-8.2)
[2018-03-16] MEDS: TPN PER PHARMACY MC PRN (13:41)
--- NOTE | 2018-03-16 13:42 | NUR ---
Pharmacy TPN Dosing Note S: CARLA ESPINOZA is a 72 year old F Currently receiving Central Continuous TPN started 03/12/18 B:Pertinent PMH: HEPATIC CARCINOMA, MALNUTRITION Height: 5 feet, 4 inches Weight: 58.555513 kg Current diet: npo LABS: Sodium: 134 Potassium: 4.0 Chloride: 101 Calcium: 8.4 Corrected Calcium: 9.44 Magnesium: 1.9 CO2: 25 SCr: 0.5 Glucose: 101 Albumin: 2.7 AST: 66 (03/13) ALT: 37 (/) TPN FORMULA: TPN TYPE: Central Continuous AMINO ACIDS: 70 gm DEXTROSE: 195 gm LIPIDS: 20 gm SODIUM CHLORIDE: 30 mEq SODIUM ACETATE: 60 mEq SODIUM PHOSPHATE: - mmol POTASSIUM CHLORIDE: 40 mEq POTASSIUM ACETATE: 10 mEq POTASSIUM PHOSPHATE: 25 mmol MAGNESIUM: 20 mEq CALCIUM: 5 mEq INSULIN: 0 units MULTIPLE VITAMIN: 10 ml TRACE ELEMENTS: 1 ml(s) TPN PLAN: No changes today, labs stable. Good response to mag bolus/increase 03/15. Next BMP 03/19 (Patricia). R: Continue TPN as above. Will monitor electrolytes, glucose, and tolerance to TPN. GUSTAVO [facility], 03/16/18 [id number]
--- NOTE | 2018-03-16 14:08 | NUR ---
SW following for dc planning. Discussed with RN, RN advised pt is from [place] and likely will return there. Pt is no longer requiring oxygen, although looks to still be on TPN. SW will continue to follow for discharge planning.
[2018-03-16 15:00] VITALS: BP 108/62
[2018-03-16 19:05] VITALS: BP 110/54
[2018-03-16] MEDS ORDERED: [UNRECOGNIZED DRUG - OTHER] IV SCH ×12 (22:00)
[2018-03-16] MEDS ORDERED: AMINO ACID IV SCH ×12 (22:00)
[2018-03-16] MEDS ORDERED: DEXTROSE 70% IV SCH ×12 (22:00)
[2018-03-16] MEDS ORDERED: TOTAL PARENTERAL NUTRITION IV SCH ×12 (22:00)
[2018-03-16 23:22] VITALS: BP 107/52
[2018-03-17 03:51] VITALS: BP 94/44
[2018-03-17] MEDS: IPRATRPIUM/ALBUTEROL 0.5/2.5MG 3 ML NEBU. NEB SCH ×4 (06:08→19:26)
[2018-03-17 07:00] VITALS: BP_SYST 106; BP_SYST 121; BP_DIAS 48; BP_DIAS 69
[2018-03-17] MEDS: fentaNYL PF VIAL 100 MCG/2 ML VIAL IV PRN ×2 (08:05→16:23)
[2018-03-17] MEDS: PANTOPRAZOLE IV PUSH 40 MG VIAL. IVP SCH (08:07)
--- NOTE | 2018-03-17 09:02 | PDOC ---
MARGARITO PECK CNS 03/17/18 0902: SURGICAL PROGRESS NOTE Subjective tolerating clears no n/v had 2 stools Vital Signs Vital Signs Date Time Temp Pulse Resp B/P (MAP) Pulse Ox O2 Delivery O2 Flow Rate FiO2 03/17/18 08:05 14 Room Air 03/17/18 07:00 98.7 83 106/48 (67) 98 98.7 I&O Intake and Output 03/17/18 07:01 Intake Total 1395 ml Output Total 1150 ml Balance 245 ml Intake Oral 200 ml IV Total 440 ml Other 755 ml Output Urine Total 850 ml Stool Total 200 ml Drainage Total 100 ml # Voids 4 General: Alert, Oriented X3, Cooperative, No acute distress Abdomen: Soft, Other (serous drainage from old drain site, g tube in place) Labs Laboratory Tests Test 03/16/18 10:53 Sodium Level 134 mmol/L (136-145) Potassium Level 4.0 mmol/L (3.5-5.1) Chloride Level 101 mmol/L (98-107) Carbon Dioxide Level 25 mmol/L (21-32) Anion Gap 8 (6-14) Blood Urea Nitrogen 12 mg/dL (7-20) Creatinine 0.5 mg/dL (0.6-1.0) Estimated GFR (Cockcroft-Gault) 122.0 BUN/Creatinine Ratio 24 (6-20) Glucose Level 101 mg/dL (70-99) Calcium Level 8.4 mg/dL (8.5-10.1) Phosphorus Level 3.2 mg/dL (2.6-4.7) Magnesium Level 1.9 mg/dL (1.8-2.4) Total Bilirubin 1.5 mg/dL (0.2-1.0) Aspartate Amino Transf (AST/SGOT) 109 U/L (15-37) Alanine Aminotransferase (ALT/SGPT) 72 U/L (14-59) Alkaline Phosphatase 290 U/L (46-116) Total Protein 7.4 g/dL (6.4-8.2) Albumin 2.7 g/dL (3.4-5.0) Albumin/Globulin Ratio 0.6 (1.0-1.7) Laboratory Tests Test 03/16/18 10:53 Sodium Level 134 mmol/L (136-145) Potassium Level 4.0 mmol/L (3.5-5.1) Chloride Level 101 mmol/L (98-107) Carbon Dioxide Level 25 mmol/L (21-32) Anion Gap 8 (6-14) Blood Urea Nitrogen 12 mg/dL (7-20) Creatinine 0.5 mg/dL (0.6-1.0) Estimated GFR (Cockcroft-Gault) 122.0 BUN/Creatinine Ratio 24 (6-20) Glucose Level 101 mg/dL (70-99) Calcium Level 8.4 mg/dL (8.5-10.1) Phosphorus Level 3.2 mg/dL (2.6-4.7) Magnesium Level 1.9 mg/dL (1.8-2.4) Total Bilirubin 1.5 mg/dL (0.2-1.0) Aspartate Amino Transf (AST/SGOT) 109 U/L (15-37) Alanine Aminotransferase (ALT/SGPT) 72 U/L (14-59) Alkaline Phosphatase 290 U/L (46-116) Total Protein 7.4 g/dL (6.4-8.2) Albumin 2.7 g/dL (3.4-5.0) Albumin/Globulin Ratio 0.6 (1.0-1.7) Problem List Problems Medical Problems: (1) Hypotension Status: Acute Assessment/Plan clears, drainage from old drain site less MEAGAN METZ MD 03/17/18 1139: MARGARITO PECK APRN Mar 17, 2018 09:02 MEAGAN METZ MD Mar 17, 2018 11:39
--- NOTE | 2018-03-17 09:48 | PDOC ---
Subjective: Subjective: Doing better, had a loose stool this morning. Objective: Vital Signs: Vital Signs Date Time Temp Pulse Resp B/P (MAP) Pulse Ox O2 Delivery O2 Flow Rate FiO2 03/17/18 08:40 Room Air 03/17/18 08:05 14 03/17/18 07:00 98.7 83 106/48 (67) 98 98.7 Labs: Laboratory Tests Test 03/16/18 10:53 Sodium Level 134 mmol/L Potassium Level 4.0 mmol/L Chloride Level 101 mmol/L Carbon Dioxide Level 25 mmol/L Anion Gap 8 Blood Urea Nitrogen 12 mg/dL Creatinine 0.5 mg/dL Estimated GFR (Cockcroft-Gault) 122.0 BUN/Creatinine Ratio 24 Glucose Level 101 mg/dL Calcium Level 8.4 mg/dL Phosphorus Level 3.2 mg/dL Magnesium Level 1.9 mg/dL Total Bilirubin 1.5 mg/dL Aspartate Amino Transf (AST/SGOT) 109 U/L Alanine Aminotransferase (ALT/SGPT) 72 U/L Alkaline Phosphatase 290 U/L Total Protein 7.4 g/dL Albumin 2.7 g/dL Albumin/Globulin Ratio 0.6 Imaging: [facility] TOE Swallow Re-eval: Oropharyngeal swallow WFL for puree diet consistency and thin/regular liquids. Significantly improved oropharyngeal swallow function since eval on 03/14/18. Assessment of solids pending medical clearance for solid foods. See ST Swallow Treatment note 03/16/18 for details. Recommendations: When medically cleared for PO intake, Dysphagia I diet w/ thin /regular liquids. Assessment of soft solids pending approval of solids by surgery. Will continue SK[facility] TOE f/u to ensure safety of PO intake. PE: GEN: NAD - walking halls w/ therapy LUNGS: room air NEURO/PSYCH: A & O 3 A/P: S/p splenectomy, h/o HCC Elevated LFTs Dysphagia - resolved, on clears and TPN -- Diet per surgery. NASIR NGUYEN Mar 17, 2018 09:48
[2018-03-17 11:00] VITALS: BP 104/55
[2018-03-17 11:05] LABS: CREATININE 0.5 mg/dL (0.6-1.0); POTASSIUM 4.4 mmol/L (3.5-5.1)
--- NOTE | 2018-03-17 13:46 | NUR ---
SW following for dc planning. Discussed with RN, RN advised pt's diet is progressing and anticipates speech will see pt tomorrow (03/18/18). Per RN, pt plans to return to [place] with her . SW will continue to follow.
[2018-03-17] MEDS: TPN PER PHARMACY MC PRN (13:57)
--- NOTE | 2018-03-17 14:00 | NUR ---
Pharmacy TPN Dosing Note S: CARLA ESPINOZA is a 72 year old F Currently receiving Central Continuous TPN started 03/12/18 B:Pertinent PMH: HEPATIC CARCINOMA, MALNUTRITION Height: 5 feet, 4 inches Weight: [id number] kg Current diet: npo LABS: Sodium: 134 Potassium: 4.4 Chloride: 101 Calcium: 8.0 Corrected Calcium: 9.04 Magnesium: 1.9 CO2: 27 SCr: 0.5 Glucose: 134 Albumin: 2.7 AST: 66 (1/) ALT: 37 (1/) TPN FORMULA: TPN TYPE: Central Continuous AMINO ACIDS: 70 gm DEXTROSE: 195 gm LIPIDS: 20 gm SODIUM CHLORIDE: 30 mEq SODIUM ACETATE: 60 mEq SODIUM PHOSPHATE: - mmol POTASSIUM CHLORIDE: 40 mEq POTASSIUM ACETATE: 10 mEq POTASSIUM PHOSPHATE: 25 mmol MAGNESIUM: 20 mEq CALCIUM: 5 mEq INSULIN: 0 units MULTIPLE VITAMIN: 10 ml TRACE ELEMENTS: 1 ml(s) TPN PLAN: No changes today, labs stable. Pt has been started on dysphagia I diet. R: Continue TPN ABOVE. Will monitor electrolytes, glucose, and tolerance to TPN. GUSTAVO [facility], 03/17/18 1400
[2018-03-17 15:00] VITALS: BP 99/54
--- NOTE | 2018-03-17 18:41 | PDOC ---
PROGRESS NOTES Chief Complaint Chief Complaint Acute blood loss anemia - 2/2 gastric varices bleeding s/p Splenectomy, gastrotomy with control of varices, G-tube placement 03/08 and clots evacuation on 03/09 HCC - s/p surgical resection Hypotension - s.o ICU off pressors, stable retention, larry removed. History of Present Illness History of Present Illness Extensive notes reviewed Intubated x 7 days, npo now, either fialed swallow or as per GS rec HAs TPN voa RT central line NO fevers Wants to go home soon AMbulates well Dressing dry, G tube in plaCE wait for GS to ok diet even if she passes [employer] - dw [facility] Larry indwelling sec to retention from her icu stay nO fevers PLAN COnt tpn fo now defer to GS regarding diet NO PT needs COnt iV Abx Dc larry Vitals Vitals Vital Signs Date Time Temp Pulse Resp B/P (MAP) Pulse Ox O2 Delivery O2 Flow Rate FiO2 03/17/18 16:31 95 Room Air 03/17/18 16:23 16 03/17/18 15:00 98.5 82 99/54 (69) 98.5 Physical Exam Physical Exam intubated, sedated General: Alert, Oriented X3, Cooperative, No acute distress Heart: Regular rate, No murmurs Lungs: Clear Abdomen: Soft, Other (serous drainage from old drain site, g tube in place) Extremities: No edema Skin: No rashes, No breakdown Labs LABS Laboratory Tests Test 03/17/18 10:40 Sodium Level 135 mmol/L (136-145) Potassium Level 4.4 mmol/L (3.5-5.1) Chloride Level 101 mmol/L (98-107) Carbon Dioxide Level 27 mmol/L (21-32) Anion Gap 7 (6-14) Blood Urea Nitrogen 14 mg/dL (7-20) Creatinine 0.5 mg/dL (0.6-1.0) Estimated GFR (Cockcroft-Gault) 122.0 Glucose Level 134 mg/dL (70-99) Calcium Level 8.0 mg/dL (8.5-10.1) Assessment and Plan Assessmemt and Plan Problems Medical Problems: (1) Hypotension Status: Acute Comment Review of Relevant I have reviewed the following items scottie (where applicable) has been applied. Labs Laboratory Tests Test 03/16/18 10:53 03/17/18 10:40 Sodium Level 134 mmol/L (136-145) 135 mmol/L (136-145) Potassium Level 4.0 mmol/L (3.5-5.1) 4.4 mmol/L (3.5-5.1) Chloride Level 101 mmol/L (98-107) 101 mmol/L (98-107) Carbon Dioxide Level 25 mmol/L (21-32) 27 mmol/L (21-32) Anion Gap 8 (6-14) 7 (6-14) Blood Urea Nitrogen 12 mg/dL (7-20) 14 mg/dL (7-20) Creatinine 0.5 mg/dL (0.6-1.0) 0.5 mg/dL (0.6-1.0) Estimated GFR (Cockcroft-Gault) 122.0 122.0 BUN/Creatinine Ratio 24 (6-20) Glucose Level 101 mg/dL (70-99) 134 mg/dL (70-99) Calcium Level 8.4 mg/dL (8.5-10.1) 8.0 mg/dL (8.5-10.1) Phosphorus Level 3.2 mg/dL (2.6-4.7) Magnesium Level 1.9 mg/dL (1.8-2.4) Total Bilirubin 1.5 mg/dL (0.2-1.0) Aspartate Amino Transf (AST/SGOT) 109 U/L (15-37) Alanine Aminotransferase (ALT/SGPT) 72 U/L (14-59) Alkaline Phosphatase 290 U/L (46-116) Total Protein 7.4 g/dL (6.4-8.2) Albumin 2.7 g/dL (3.4-5.0) Albumin/Globulin Ratio 0.6 (1.0-1.7) Laboratory Tests Test 03/17/18 10:40 Sodium Level 135 mmol/L (136-145) Potassium Level 4.4 mmol/L (3.5-5.1) Chloride Level 101 mmol/L (98-107) Carbon Dioxide Level 27 mmol/L (21-32) Anion Gap 7 (6-14) Blood Urea Nitrogen 14 mg/dL (7-20) Creatinine 0.5 mg/dL (0.6-1.0) Estimated GFR (Cockcroft-Gault) 122.0 Glucose Level 134 mg/dL (70-99) Calcium Level 8.0 mg/dL (8.5-10.1) Microbiology 03/09/18 Urine Culture - Final, Complete 03/09/18 Urine Culture Result 1 (JEFFRY) - Final, Complete Medications Current Medications Sodium Chloride 500 ml @ 500 mls/hr Q1H IV Last administered on 03/07/18at 18: 29; Start 03/07/18 at 18:30; Stop 03/07/18 at 18:42; Status DC Pantoprazole Sodium (PROTONIX VIAL for IV PUSH) 80 mg 1X ONCE IVP Last administered on 03/07/18at 19:00; Start 03/07/18 at 18:30; Stop 03/07/18 at 18 :32; Status DC Octreotide Acetate 500 mcg/ Sodium Chloride 101 ml @ 5.05 mls/hr CONT PRN IV SEE I/O RECORD Last administered on 03/09/18at 10:38; Start 03/07/18 at 19:30; Stop 03/09/18 at 11:47; Status DC Ondansetron HCl (Zofran) 4 mg PRN Q8HRS PRN IV NAUSEA/VOMITING; Start at 19:15; Stop 03/08/18 at 19:14; Status DC Iohexol (Omnipaque 300 Mg/ml) 75 ml 1X ONCE IV Last administered on at 20:32; Start 03/07/18 at 19:15; Stop 03/07/18 at 19:16; Status DC Info (CONTRAST GIVEN -- Rx MONITORING) 1 each PRN DAILY PRN MC SEE COMMENTS; Start 03/07/18 at 19:15; Stop 03/09/18 at 19:14; Status DC Propofol 20 ml @ As Directed STK-MED ONCE IV ; Start 03/07/18 at 22:37; Stop 03/07/18 at 22:38; Status DC Pantoprazole Sodium 80 mg/ Sodium Chloride 100 ml @ 10 mls/hr Q10H IV Last administered on 03/10/18at 22:46; Start 03/07/18 at 23:00; Stop 03/11/18 at 11:10 ; Status DC Ringer's Solution 1,000 ml @ 200 mls/hr Q5H IV Last administered on at 20:41; Start 03/07/18 at 23:15; Stop 03/09/18 at 10:58; Status DC Dopamine HCl/ Dextrose 250 ml @ 4.461 mls/ hr CONT PRN IV SEE I/O RECORD; Start 03/08/18 at 09:30; Stop 03/15/18 at 16:14; Status DC Lidocaine/Sodium Bicarbonate (Buffered Lidocaine 1%) 3 ml STK-MED ONCE .ROUTE ; Start 03/08/18 at 11:47; Stop 03/08/18 at 11:48; Status DC Iohexol (Omnipaque 300 Mg/ml) 100 ml STK-MED ONCE .ROUTE ; Start 03/08/18 at 11 :47; Stop 03/08/18 at 11:48; Status DC Heparin Sodium/ Sodium Chloride 1,000 ml @ As Directed STK-MED ONCE .ROUTE ; Start 03/08/18 at 11:47; Stop 03/08/18 at 11:48; Status DC Midazolam HCl (Versed) 2 mg STK-MED ONCE .ROUTE ; Start 03/08/18 at 12:06; Stop 03/08/18 at 12:07; Status DC Fentanyl Citrate (Fentanyl 2ml Vial) 100 mcg STK-MED ONCE .ROUTE ; Start at 12:06; Stop 03/08/18 at 12:07; Status DC Heparin Sodium/ Sodium Chloride (HEPARIN for ARTERIAL LINE FLUSH) 1,000 unit 1X ONCE IART Last administered on 03/08/18at 12:30; Start 03/08/18 at 12:30; Stop 03/08/18 at 12:31; Status DC Lidocaine/Sodium Bicarbonate (Buffered Lidocaine 1%) 3 ml 1X ONCE IJ Last administered on 03/08/18at 12:15; Start 03/08/18 at 12:15; Stop 03/08/18 at 12 :21; Status DC Midazolam HCl (Versed) 2 mg 1X ONCE IV ; Start 03/08/18 at 12:15; Stop at 12:21; Status DC Fentanyl Citrate (Fentanyl 2ml Vial) 100 mcg 1X ONCE IV Last administered on 03/08/18at 12:15; Start 03/08/18 at 12:15; Stop 03/08/18 at 12:21; Status DC Iohexol (Omnipaque 300 Mg/ml) 100 ml 1X ONCE IART Last administered on at 12:15; Start 03/08/18 at 12:15; Stop 03/08/18 at 12:21; Status DC Phenylephrine HCl (Wander-Synephrine Inj) 10 mg STK-MED ONCE .ROUTE ; Start at 13:25; Stop 03/08/18 at 13:26; Status DC Succinylcholine Chloride (Anectine) 200 mg STK-MED ONCE .ROUTE ; Start at 14:55; Stop 03/08/18 at 14:56; Status DC Propofol 20 ml @ As Directed STK-MED ONCE IV ; Start 03/08/18 at 14:55; Stop 03/08/18 at 14:56; Status DC Ketamine HCl (Ketamine) 50 mg STK-MED ONCE .ROUTE ; Start 03/08/18 at 14:55; Stop 03/08/18 at 14:57; Status DC Dexamethasone Sodium Phosphate (Decadron) 20 mg STK-MED ONCE .ROUTE ; Start at 14:56; Stop 03/08/18 at 14:58; Status DC Ondansetron HCl (Zofran) 4 mg STK-MED ONCE .ROUTE ; Start 03/08/18 at 14:57; Stop 03/08/18 at 14:58; Status DC Lidocaine HCl (Lidocaine Pf 2% Vial) 5 ml STK-MED ONCE .ROUTE ; Start 03/08/18 at 14:57; Stop 03/08/18 at 14:58; Status DC Propofol 20 ml @ As Directed STK-MED ONCE IV ; Start 03/08/18 at 14:57; Stop 03/08/18 at 14:58; Status DC Fentanyl Citrate (Fentanyl 5ml Vial) 250 mcg STK-MED ONCE .ROUTE ; Start at 15:54; Stop 03/08/18 at 15:55; Status DC Rocuronium [place] (Zemuron) 100 mg STK-MED ONCE .ROUTE ; Start 03/08/18 at 15: 55; Stop 03/08/18 at 15:57; Status DC Cefazolin Sodium 100 ml @ As Directed STK-MED ONCE IV ; Start 03/08/18 at 15: 57; Stop 03/08/18 at 15:59; Status DC Cellulose (Surgicel Hemostat 4x8) 1 each STK-MED ONCE .ROUTE Last administered on 03/08/18at 15:53; Start 03/08/18 at 16:27; Stop 03/08/18 at 16:28; Status DC Cellulose (Surgicel Hemostat 2x3) 1 each STK-MED ONCE .ROUTE Last administered on 03/08/18at 15:53; Start 03/08/18 at 16:42; Stop 03/08/18 at 16:44; Status DC Cellulose (Surgicel Hemostat 2x14) 1 each STK-MED ONCE .ROUTE ; Start 03/08/18 at 16:42; Stop 03/08/18 at 16:44; Status DC Cellulose (Surgicel Hemostat 4x8) 1 each STK-MED ONCE .ROUTE Last administered on 03/08/18at 15:53; Start 03/08/18 at 16:42; Stop 03/08/18 at 16:44; Status DC Calcium Chloride (Calcium Chloride) 1,000 mg STK-MED ONCE .ROUTE ; Start at 17:03; Stop 03/08/18 at 17:04; Status DC Calcium Chloride (Calcium Chloride) 1,000 mg STK-MED ONCE .ROUTE ; Start at 17:03; Stop 03/08/18 at 17:04; Status DC Sodium Bicarbonate (Sodium Bicarb Adult 8.4% Syr) 50 meq STK-MED ONCE .ROUTE ; Start 03/08/18 at 17:03; Stop 03/08/18 at 17:04; Status DC Sodium Bicarbonate (Sodium Bicarb Adult 8.4% Syr) 50 meq STK-MED ONCE .ROUTE ; Start 03/08/18 at 17:03; Stop 03/08/18 at 17:04; Status DC Epinephrine HCl (EPINEPHrine SYRINGE) 1 mg STK-MED ONCE .ROUTE ; Start at 17:03; Stop 03/08/18 at 17:04; Status DC Albumin Human 500 ml @ As Directed STK-MED ONCE IV ; Start 03/08/18 at 17:03; Stop 03/08/18 at 17:04; Status DC Sodium Bicarbonate (Sodium Bicarb Adult 8.4% Syr) 50 meq STK-MED ONCE .ROUTE ; Start 03/08/18 at 17:07; Stop 03/08/18 at 17:08; Status DC Sodium Bicarbonate (Sodium Bicarb Adult 8.4% Syr) 50 meq STK-MED ONCE .ROUTE ; Start 03/08/18 at 17:07; Stop 03/08/18 at 17:08; Status DC Cellulose (Surgicel Hemostat 4x8) 1 each STK-MED ONCE TP Last administered on 03/08/18at 15:53; Start 03/08/18 at 15:53; Stop 03/08/18 at 17:40; Status DC Sodium Bicarbonate (Sodium Bicarb Adult 8.4% Syr) 50 meq STK-MED ONCE .ROUTE ; Start 03/08/18 at 17:35; Stop 03/08/18 at 17:37; Status DC Calcium Chloride (Calcium Chloride) 1,000 mg STK-MED ONCE .ROUTE ; Start at 17:35; Stop 03/08/18 at 17:37; Status DC Albumin Human 500 ml @ As Directed STK-MED ONCE IV ; Start 03/08/18 at 17:41; Stop 03/08/18 at 17:43; Status DC Norepinephrine Bitartrate 250 ml @ 1.875 mls/ hr 1X ONCE IV Last administered on 03/08/18at 21:00; Start 03/08/18 at 17:45; Stop 03/09/18 at 08 :10; Status DC Vasopressin 40 unit/Dextrose 102 ml @ 6 mls/hr 1X ONCE IV Last administered on 03/08/18at 20:41; Start 03/08/18 at 18:00; Stop 03/09/18 at 10:59; Status DC Calcium Chloride (Calcium Chloride) 1,000 mg STK-MED ONCE .ROUTE ; Start at 17:57; Stop 03/08/18 at 17:59; Status DC Sodium Bicarbonate (Sodium Bicarb Adult 8.4% Syr) 50 meq STK-MED ONCE .ROUTE ; Start 03/08/18 at 18:04; Stop 03/08/18 at 18:06; Status DC Sodium Bicarbonate (Sodium Bicarb Adult 8.4% Syr) 50 meq STK-MED ONCE .ROUTE ; Start 03/08/18 at 18:05; Stop 03/08/18 at 18:06; Status DC Sodium Bicarbonate (Sodium Bicarb Adult 8.4% Syr) 50 meq STK-MED ONCE .ROUTE ; Start 03/08/18 at 18:07; Stop 03/08/18 at 18:08; Status DC Sodium Bicarbonate (Sodium Bicarb Adult 8.4% Syr) 50 meq STK-MED ONCE .ROUTE ; Start 03/08/18 at 18:07; Stop 03/08/18 at 18:08; Status DC Epinephrine HCl (EPINEPHrine SYRINGE) 1 mg STK-MED ONCE .ROUTE ; Start at 18:40; Stop 03/08/18 at 18:41; Status DC Prochlorperazine Edisylate (Compazine) 10 mg STK-MED ONCE .ROUTE ; Start at 18:42; Stop 03/08/18 at 18:44; Status DC Fentanyl Citrate (Fentanyl 2ml Vial) 100 mcg STK-MED ONCE .ROUTE ; Start at 18:43; Stop 03/08/18 at 18:44; Status DC Sevoflurane (Ultane) 90 ml STK-MED ONCE IH ; Start 03/08/18 at 18:48; Stop at 18:49; Status DC Cellulose (Surgicel Hemostat 2x3) 1 each STK-MED ONCE TP Last administered on 03/08/18at 15:55; Start 03/08/18 at 15:55; Stop 03/08/18 at 19:04; Status DC Cellulose (Surgicel Hemostat 2x3) 1 each STK-MED ONCE TP Last administered on 03/08/18at 15:53; Start 03/08/18 at 15:53; Stop 03/08/18 at 19:04; Status DC Propofol 100 ml @ As Directed STK-MED ONCE IV ; Start 03/08/18 at 19:56; Stop 03/08/18 at 19:58; Status DC Famotidine (Pepcid) 20 mg BID PO ; Start 03/08/18 at 21:00; Stop 03/09/18 at 08:11; Status DC Sodium Chloride (Normal Saline Flush) 3 ml QSHIFT PRN IV AFTER MEDS AND BLOOD DRAWS; Start 03/08/18 at 20:45; Status Cancel Morphine Sulfate (Morphine Sulfate) 1 mg PRN Q1HR PRN IV PAIN Last administered on 03/08/18at 21:12; Start 03/08/18 at 20:45; Stop 03/10/18 at 18: 45; Status DC Ondansetron HCl (Zofran) 4 mg PRN Q6HRS PRN IV NAUESA, 1ST CHOICE; Start 03/08 at 20:45 Fentanyl Citrate 30 ml @ 0 mls/hr CONT PRN IV SEE PROTOCOL Last administered on 03/09/18at 23:16; Start 03/08/18 at 22:15; Stop 03/15/18 at 16:15; Status DC Fentanyl Citrate (Fentanyl 2ml Vial) 25 mcg PRN Q1HR PRN IV SEE COMMENTS; Start 03/08/18 at 22:15; Stop 03/10/18 at 18:45; Status DC Fentanyl Citrate (Fentanyl 2ml Vial) 50 mcg PRN Q1HR PRN IV SEE COMMENTS Last administered on 03/08/18at 22:41; Start 03/08/18 at 22:15; Stop 03/12/18 at 16: 26; Status DC Chlorhexidine Gluconate (Peridex) 15 ml BID MM Last administered on 03/13/18at 09 :00; Start 03/09/18 at 09:00; Stop 03/13/18 at 12:19; Status DC Midazolam HCl 100 ml @ 0 mls/hr CONT PRN IV SEE PROTOCOL Last administered on 03/09/18at 21:43; Start 03/08/18 at 22:15; Stop 03/10/18 at 18:45; Status DC Factor IX (Pha) (Novoseven Rt) 1 mg 1X ONCE IV Last administered on at 01:09; Start 03/09/18 at 01:00; Stop 03/09/18 at 01:01; Status DC Lorazepam (Ativan) 2 mg STK-MED ONCE .ROUTE ; Start 03/09/18 at 01:15; Stop at 01:16; Status DC Norepinephrine Bitartrate 250 ml @ 1.875 mls/ hr CONT PRN IV SEE I/O RECORD Last administered on 03/09/18at 17:41; Start 03/09/18 at 01:45; Stop 03/15/18 at 16:14; Status DC Cefazolin Sodium/ Dextrose 50 ml @ 100 mls/hr 1X PREOP PRN IV PRIOR TO PROCEDURE Last administered on 03/09/18at 02:00; Start 03/09/18 at 02:00; Stop 03/10/18 at 01:59; Status DC Rocuronium [place] (Zemuron) 100 mg STK-MED ONCE .ROUTE ; Start 03/09/18 at 01: 57; Stop 03/09/18 at 01:59; Status DC Fentanyl Citrate (Fentanyl 5ml Vial) 250 mcg STK-MED ONCE .ROUTE ; Start at 02:13; Stop 03/09/18 at 02:14; Status DC Cellulose (Surgicel Hemostat 2x3) 1 each STK-MED ONCE .ROUTE ; Start 03/09/18 at 02:23; Stop 03/09/18 at 02:25; Status DC Cellulose (Surgicel Hemostat 2x14) 1 each STK-MED ONCE .ROUTE ; Start 03/09/18 at 02:23; Stop 03/09/18 at 02:25; Status DC Cellulose (Surgicel Hemostat 4x8) 1 each STK-MED ONCE .ROUTE Last administered on 03/09/18at 02:04; Start 03/09/18 at 02:23; Stop 03/09/18 at 02:25; Status DC Sodium Chloride (Normal Saline Flush) 3 ml QSHIFT PRN IV AFTER MEDS AND BLOOD DRAWS; Start 03/09/18 at 03:30 Cellulose (Surgicel Hemostat 4x8) 1 each STK-MED ONCE TP Last administered on 03/09/18at 02:04; Start 03/09/18 at 02:04; Stop 03/09/18 at 03:20; Status DC Cellulose (Surgicel Hemostat 4x8) 1 each STK-MED ONCE TP Last administered on 03/09/18at 02:04; Start 03/09/18 at 02:04; Stop 03/09/18 at 03:20; Status DC Sodium Bicarbonate (Sodium Bicarb Adult 8.4% Syr) 150 meq STK-MED ONCE .ROUTE ; Start 03/08/18 at 10:00; Stop 03/09/18 at 10:30; Status DC Dopamine HCl/ Dextrose (DOPamine 400MG/ 250ML PREMIX) 400 mg STK-MED ONCE IV ; Start 03/08/18 at 10:00; Stop 03/09/18 at 10:30; Status DC Potassium Chloride/Dextrose 1,000 ml @ 100 mls/hr Q10H IV Last administered on 03/09/18at 11:22; Start 03/09/18 at 11:00; Stop 03/09/18 at 20:59; Status DC Magnesium Sulfate/ Dextrose 100 ml @ 25 mls/hr 1X ONCE IV Last administered on 03/09/18at 13:45; Start 03/09/18 at 12:45; Stop 03/09/18 at 16:44; Status DC Potassium Chloride/Water 50 ml @ 50 mls/hr 1X ONCE IV Last administered on at 13:43; Start 03/09/18 at 12:45; Stop 03/09/18 at 13:44; Status DC Magnesium Sulfate 50 ml @ 25 mls/hr PRN DAILY PRN IV for Mag < 1.7 on am labs Last administered on 03/10/18at 06:17; Start 03/09/18 at 13:45 Sodium Chloride 500 ml @ 500 mls/hr QIDPRN PRN IV U/O <30 cc/hr Last administered on 03/10/18at 09:00; Start 03/09/18 at 19:45 Info (Tpn Per Pharmacy) 1 each PRN DAILY PRN MC SEE COMMENTS; Start 03/10/18 at 09:00; Stop 03/10/18 at 12:42; Status DC Potassium Phosphate 13.6 mmol/Dextrose 104.5333 ml @ 52.267 m... Q2H IV Last administered on 03/10/18at 10:34; Start 03/10/18 at 10:00; Stop 03/10/18 at 11:59; Status DC Amino Acids/ Glycerin/ Electrolytes 1,000 ml @ 100 mls/hr Q10H IV Last administered on 03/11/18at 21:42; Start 03/10/18 at 13:00; Stop 03/12/18 at 21:59; Status DC Ringer's Solution 500 ml @ 500 mls/hr 1X ONCE IV Last administered on at 18:55; Start 03/10/18 at 19:45; Stop 03/10/18 at 20:44; Status DC Dextrose (Dextrose 50%-Water Syringe) 12.5 gm PRN Q15MIN PRN IV SEE COMMENTS; Start 03/11/18 at 07:00 Ringer's Solution 500 ml @ 500 mls/hr Q1H PRN IV FLUID LOSS Last administered on 03/13/18at 00:39; Start 03/11/18 at 07:00 Pantoprazole Sodium (PROTONIX VIAL for IV PUSH) 40 mg DAILY IVP Last administered on 03/17/18at 08:07; Start 03/12/18 at 09:00; Stop 03/17/18 at 09:48; Status DC Potassium Phosphate 13.6 mmol/Dextrose 104.5333 ml @ 52.267 m... Q2H IV Last administered on 03/11/18at 21:42; Start 03/11/18 at 14:00; Stop 03/11/18 at 19:59; Status DC Info (Tpn Per Pharmacy) 1 each PRN DAILY PRN MC SEE COMMENTS Last administered on 03/17/18at 13:57; Start 03/12/18 at 09:30 Potassium Phosphate 13.6 mmol/Sodium Chloride 104.5333 ml @ 52.267 m... Q2H IV Last administered on 03/12/18at 13:30; Start 03/12/18 at 09:30; Stop 03/12/18 at 15:29; Status DC Albumin Human 100 ml @ 100 mls/hr TID IV Last administered on 03/14/18at 09:49; Start 03/12/18 at 14:00; Stop 03/14/18 at 09:59; Status DC Info (Tpn Per Pharmacy) 1 each PRN DAILY PRN MC SEE COMMENTS; Start 03/12/18 at 11:00; Status UNV Sodium Acetate 90 meq/Potassium Chloride 50 meq/ Potassium Phosphate 13.6 mmol/ Magnesium Sulfate 10 meq/ Calcium Gluconate 10 meq/ Multivitamins 10 ml/Chromium / Copper/Manganese/ Seleni/Zn 1 ml/ Total Parenteral Nutrition/Amino Acids/ Dextrose/ Fat Emulsion Intravenous 1,512 ml @ 63 mls/hr TPN CONT IV ; Start at 22:00; Stop 03/12/18 at 22:00; Status DC Sodium Acetate 60 meq/Potassium Chloride 50 meq/ Potassium Phosphate 13.6 mmol/ Magnesium Sulfate 10 meq/ Calcium Gluconate 10 meq/ Multivitamins 10 ml/Chromium / Copper/Manganese/ Seleni/Zn 1 ml/ Total Parenteral Nutrition/Amino Acids/ Dextrose/ Fat Emulsion Intravenous 1,512 ml @ 63 mls/hr TPN CONT IV Last administered on 03/12/18at 21:12; Start 03/12/18 at 22:00; Stop 03/13/18 at 21:59; Status DC Magnesium Sulfate 50 ml @ 25 mls/hr 1X ONCE IV Last administered on 03/13/18at 09:30; Start 03/13/18 at 09:30; Stop 03/13/18 at 11:29; Status DC Epinephrine (S2 Racepinephrine) 0.5 ml 1X ONCE NEB Last administered on at 11:30; Start 03/13/18 at 11:30; Stop 03/13/18 at 11:31; Status DC Potassium Phosphate 13.6 mmol/Sodium Chloride 104.5333 ml @ 52.267 m... Q2H IV Last administered on 03/13/18at 15:00; Start 03/13/18 at 13:00; Stop 03/13/18 at 16:59; Status DC Sodium Acetate 60 meq/Potassium Chloride 40 meq/ Potassium Phosphate 25 mmol/ Magnesium Sulfate 15 meq/Calcium Gluconate 5 meq/ Multivitamins 10 ml/Chromium/ Copper/Manganese/ Seleni/Zn 1 ml/ Total Parenteral Nutrition/Amino Acids/ Dextrose/ Fat Emulsion Intravenous 1,512 ml @ 63 mls/hr TPN CONT IV Last administered on 03/13/18at 21:16; Start 03/13/18 at 22:00; Stop 03/14/18 at 21:59; Status DC Iohexol (Omnipaque 300 Mg/ml) 75 ml 1X ONCE IV ; Start 03/13/18 at 12:45; Stop 03/13/18 at 12:46; Status DC Info (CONTRAST GIVEN -- Rx MONITORING) 1 each PRN DAILY PRN MC SEE COMMENTS; Start 03/13/18 at 12:45; Stop 03/15/18 at 12:45; Status DC Albuterol/ Ipratropium (Duoneb) 3 ml RTQID NEB Last administered on 03/17/18at 16 :30; Start 03/13/18 at 18:30 Fentanyl Citrate (Fentanyl 2ml Vial) 50 mcg PRN Q2HR PRN IV PAIN Last administered on 03/17/18at 16:23; Start 03/14/18 at 08:15 Potassium Chloride/Sodium Chloride 1,000 ml @ 75 mls/hr 1X ONCE IV ; Start 03/14/18 at 08:15; Stop 03/14/18 at 21:34; Status UNV Calcium Gluconate 1000 mg/Dextrose 110 ml @ 220 mls/hr 1X ONCE IV Last administered on 03/14/18at 09:36; Start 03/14/18 at 09:00; Stop 03/14/18 at 09:29; Status DC Iohexol (Omnipaque 300 Mg/ml) 75 ml 1X ONCE IV ; Start 03/14/18 at 08:30; Stop 03/14/18 at 08:31; Status DC Potassium Chloride/Water 50 ml @ 50 mls/hr Q1H IV Last administered on at 10:00; Start 03/14/18 at 09:00; Stop 03/14/18 at 10:59; Status DC Sodium Acetate 60 meq/Potassium Chloride 40 meq/ Potassium Acetate 10 meq/ Potassium Phosphate 25 mmol/ Magnesium Sulfate 15 meq/Calcium Gluconate 5 meq/ Multivitamins 10 ml/Chromium/ Copper/Manganese/ Seleni/Zn 1 ml/ Total Parenteral Nutrition/Amino Acids/Dextrose/ Fat Emulsion Intravenous 1,512 ml @ 63 mls/hr TPN CONT IV Last administered on 03/14/18at 21:51; Start 03/14/18 at 22 :00; Stop 03/15/18 at 21:59; Status DC Magnesium Sulfate/ Dextrose 100 ml @ 100 mls/hr 1X ONCE IV Last administered on 03/15/18at 08:59; Start 03/15/18 at 09:00; Stop 03/15/18 at 09:59; Status DC Sodium Chloride 30 meq/Sodium Acetate 60 meq/ Potassium Chloride 40 meq/ Potassium Acetate 10 meq/Potassium Phosphate 25 mmol/ Magnesium Sulfate 20 meq/ Calcium Gluconate 5 meq/ Multivitamins 10 ml/Chromium/ Copper/Manganese/ Seleni/ Zn 1 ml/ Total Parenteral Nutrition/Amino Acids/Dextrose/ Fat Emuls... 1,512 ml @ 63 mls/hr TPN CONT IV Last administered on 03/15/18at 21:48; Start 03/15/18 at 22:00; Stop 03/16/18 at 21:59; Status DC Sodium Chloride 30 meq/Sodium Acetate 60 meq/ Potassium Chloride 40 meq/ Potassium Acetate 10 meq/Potassium Phosphate 25 mmol/ Magnesium Sulfate 20 meq/ Calcium Gluconate 5 meq/ Multivitamins 10 ml/Chromium/ Copper/Manganese/ Seleni/ Zn 1 ml/ Total Parenteral Nutrition/Amino Acids/Dextrose/ Fat Emuls... 1,512 ml @ 63 mls/hr TPN CONT IV Last administered on 03/16/18at 22:01; Start 03/16/18 at 22:00; Stop 03/17/18 at 21:59 Pantoprazole Sodium (Protonix) 40 mg DAILYAC PO ; Start 03/18/18 at 07:30 Sodium Chloride 30 meq/Sodium Acetate 60 meq/ Potassium Chloride 40 meq/ Potassium Acetate 10 meq/Potassium Phosphate 25 mmol/ Magnesium Sulfate 20 meq/ Calcium Gluconate 5 meq/ Multivitamins 10 ml/Chromium/ Copper/Manganese/ Seleni/ Zn 1 ml/ Total Parenteral Nutrition/Amino Acids/Dextrose/ Fat Emuls... 1,512 ml @ 63 mls/hr TPN CONT IV ; Start 03/17/18 at 22:00; Stop 03/18/18 at 21:59 Active Scripts Active Reported Prilosec Otc (Omeprazole Magnesium) 20 Mg Tablet.dr 1 Tab PO DAILY Simvastatin 20 Mg Tablet 1 Tab PO QHS Vitals/I & O Vital Sign - Last 24 Hours 03/16/18 03/16/18 03/16/18 03/16/18 19:05 20:00 20:14 23:22 Temp 98.7 98.8 98.7 98.8 Pulse 86 83 Resp 16 16 B/P (MAP) 110/54 (72) 107/52 (70) Pulse Ox 95 95 99 O2 Delivery Room Air Room Air Room Air Room Air 03/17/18 03/17/18 03/17/18 03/17/18 03:51 06:08 07:00 07:50 Temp 98.4 98.7 98.4 98.7 Pulse 77 83 Resp 16 18 B/P (MAP) 94/44 (61) 106/48 (67) Pulse Ox 97 95 98 O2 Delivery Room Air Room Air Room Air Room Air 03/17/18 03/17/18 03/17/18 03/17/18 08:05 08:40 10:47 11:00 Temp 98.4 98.4 Pulse 75 Resp 14 18 B/P (MAP) 104/55 (71) Pulse Ox 95 99 O2 Delivery Room Air Room Air Room Air Room Air 03/17/18 03/17/18 03/17/18 15:00 16:23 16:31 Temp 98.5 98.5 Pulse 82 Resp 18 16 B/P (MAP) 99/54 (69) Pulse Ox 100 95 O2 Delivery Room Air Room Air Room Air Intake and Output 03/16/18 03/16/18 03/17/18 15:01 23:01 07:01 Intake Total 1395 ml Output Total 500 ml 550 ml 100 ml Balance -500 ml -550 ml 1295 ml ZINA CALVO MD Mar 17, 2018 18:41
[2018-03-17 19:00] VITALS: BP 117/53
--- NOTE | 2018-03-17 19:18 | NUR ---
I have reviewed documentation and assessments completed by LONG Hermosillo and I agree with them.
[2018-03-17] MEDS ORDERED: [UNRECOGNIZED DRUG - OTHER] IV SCH ×12 (22:00)
[2018-03-17] MEDS ORDERED: TOTAL PARENTERAL NUTRITION IV SCH ×12 (22:00)
[2018-03-17] MEDS ORDERED: AMINO ACID IV SCH ×12 (22:00)
[2018-03-17] MEDS ORDERED: DEXTROSE 70% IV SCH ×12 (22:00)
[2018-03-17 23:00] VITALS: BP 99/52
[2018-03-18] MEDS: fentaNYL PF VIAL 100 MCG/2 ML VIAL IV PRN ×2 (02:32→11:15)
[2018-03-18 03:00] VITALS: BP 115/58
[2018-03-18 07:00] VITALS: BP 102/53
[2018-03-18] MEDS: IPRATRPIUM/ALBUTEROL 0.5/2.5MG 3 ML NEBU. NEB SCH ×4 (07:35→18:18)
[2018-03-18] MEDS: PANTOPRAZOLE 40 MG TABLET.DR. PO SCH (07:56)
--- NOTE | 2018-03-18 10:20 | PDOC ---
Subjective: Subjective: Per family - eating some but not a lot, might have some abd pain after eating, had a normal stool. Objective: Vital Signs: Vital Signs Date Time Temp Pulse Resp B/P (MAP) Pulse Ox O2 Delivery O2 Flow Rate FiO2 03/18/18 07:36 97 Room Air 03/18/18 07:00 98.7 79 16 102/53 (69) 98.7 Labs: Laboratory Tests Test 03/17/18 10:40 Sodium Level 135 mmol/L Potassium Level 4.4 mmol/L Chloride Level 101 mmol/L Carbon Dioxide Level 27 mmol/L Anion Gap 7 Blood Urea Nitrogen 14 mg/dL Creatinine 0.5 mg/dL Estimated GFR (Cockcroft-Gault) 122.0 Glucose Level 134 mg/dL Calcium Level 8.0 mg/dL PE: GEN: NAD NEURO/PSYCH: sleeping, not awakened A/P: S/p splenectomy, h/o HCC -- Continue support. NASIR NGUYEN Mar 18, 2018 10:20
[2018-03-18 11:00] VITALS: BP 105/46
--- NOTE | 2018-03-18 11:50 | PDOC ---
PROGRESS NOTES Chief Complaint Chief Complaint Acute blood loss anemia - 2/2 gastric varices bleeding s/p Splenectomy, gastrotomy with control of varices, G-tube placement 03/08 and clots evacuation on 03/09 HCC - s/p surgical resection Hypotension - s.o ICU off pressors, stable, resolved retention, larry removed. History of Present Illness History of Present Illness PLAN HAs TPN via RT central line Ambulates well Dressing dry, G tube in place COnt tpn fo now defer to GS regarding diet NO PT needs off abx larry dc/d dc pending ability to tolerate PO apprec gen sx recommendations. Vitals Vitals Vital Signs Date Time Temp Pulse Resp B/P (MAP) Pulse Ox O2 Delivery O2 Flow Rate FiO2 03/18/18 11:26 Room Air 03/18/18 11:15 18 03/18/18 07:36 97 03/18/18 07:00 98.7 79 102/53 (69) 98.7 Physical Exam Physical Exam intubated, sedated General: Alert, Oriented X3, Cooperative, No acute distress Heart: Regular rate, No murmurs Lungs: Clear Abdomen: Soft, Other (serous drainage from old drain site, g tube in place) Extremities: No edema Skin: No rashes, No breakdown Assessment and Plan Assessmemt and Plan Problems Medical Problems: (1) Hypotension Status: Acute Comment Review of Relevant I have reviewed the following items scottie (where applicable) has been applied. Labs Laboratory Tests Test 03/17/18 10:40 Sodium Level 135 mmol/L (136-145) Potassium Level 4.4 mmol/L (3.5-5.1) Chloride Level 101 mmol/L (98-107) Carbon Dioxide Level 27 mmol/L (21-32) Anion Gap 7 (6-14) Blood Urea Nitrogen 14 mg/dL (7-20) Creatinine 0.5 mg/dL (0.6-1.0) Estimated GFR (Cockcroft-Gault) 122.0 Glucose Level 134 mg/dL (70-99) Calcium Level 8.0 mg/dL (8.5-10.1) Microbiology 03/09/18 Urine Culture - Final, Complete 03/09/18 Urine Culture Result 1 (JEFFRY) - Final, Complete Medications Current Medications Sodium Chloride 500 ml @ 500 mls/hr Q1H IV Last administered on 03/07/18at 18: 29; Start 03/07/18 at 18:30; Stop 03/07/18 at 18:42; Status DC Pantoprazole Sodium (PROTONIX VIAL for IV PUSH) 80 mg 1X ONCE IVP Last administered on 03/07/18at 19:00; Start 03/07/18 at 18:30; Stop 03/07/18 at 18 :32; Status DC Octreotide Acetate 500 mcg/ Sodium Chloride 101 ml @ 5.05 mls/hr CONT PRN IV SEE I/O RECORD Last administered on 03/09/18at 10:38; Start 03/07/18 at 19:30; Stop 03/09/18 at 11:47; Status DC Ondansetron HCl (Zofran) 4 mg PRN Q8HRS PRN IV NAUSEA/VOMITING; Start at 19:15; Stop 03/08/18 at 19:14; Status DC Iohexol (Omnipaque 300 Mg/ml) 75 ml 1X ONCE IV Last administered on at 20:32; Start 03/07/18 at 19:15; Stop 03/07/18 at 19:16; Status DC Info (CONTRAST GIVEN -- Rx MONITORING) 1 each PRN DAILY PRN MC SEE COMMENTS; Start 03/07/18 at 19:15; Stop 03/09/18 at 19:14; Status DC Propofol 20 ml @ As Directed STK-MED ONCE IV ; Start 03/07/18 at 22:37; Stop 03/07/18 at 22:38; Status DC Pantoprazole Sodium 80 mg/ Sodium Chloride 100 ml @ 10 mls/hr Q10H IV Last administered on 03/10/18at 22:46; Start 03/07/18 at 23:00; Stop 03/11/18 at 11:10 ; Status DC Ringer's Solution 1,000 ml @ 200 mls/hr Q5H IV Last administered on at 20:41; Start 03/07/18 at 23:15; Stop 03/09/18 at 10:58; Status DC Dopamine HCl/ Dextrose 250 ml @ 4.461 mls/ hr CONT PRN IV SEE I/O RECORD; Start 03/08/18 at 09:30; Stop 03/15/18 at 16:14; Status DC Lidocaine/Sodium Bicarbonate (Buffered Lidocaine 1%) 3 ml STK-MED ONCE .ROUTE ; Start 03/08/18 at 11:47; Stop 03/08/18 at 11:48; Status DC Iohexol (Omnipaque 300 Mg/ml) 100 ml STK-MED ONCE .ROUTE ; Start 03/08/18 at 11 :47; Stop 03/08/18 at 11:48; Status DC Heparin Sodium/ Sodium Chloride 1,000 ml @ As Directed STK-MED ONCE .ROUTE ; Start 03/08/18 at 11:47; Stop 03/08/18 at 11:48; Status DC Midazolam HCl (Versed) 2 mg STK-MED ONCE .ROUTE ; Start 03/08/18 at 12:06; Stop 03/08/18 at 12:07; Status DC Fentanyl Citrate (Fentanyl 2ml Vial) 100 mcg STK-MED ONCE .ROUTE ; Start at 12:06; Stop 03/08/18 at 12:07; Status DC Heparin Sodium/ Sodium Chloride (HEPARIN for ARTERIAL LINE FLUSH) 1,000 unit 1X ONCE IART Last administered on 03/08/18at 12:30; Start 03/08/18 at 12:30; Stop 03/08/18 at 12:31; Status DC Lidocaine/Sodium Bicarbonate (Buffered Lidocaine 1%) 3 ml 1X ONCE IJ Last administered on 03/08/18at 12:15; Start 03/08/18 at 12:15; Stop 03/08/18 at 12 :21; Status DC Midazolam HCl (Versed) 2 mg 1X ONCE IV ; Start 03/08/18 at 12:15; Stop at 12:21; Status DC Fentanyl Citrate (Fentanyl 2ml Vial) 100 mcg 1X ONCE IV Last administered on 03/08/18at 12:15; Start 03/08/18 at 12:15; Stop 03/08/18 at 12:21; Status DC Iohexol (Omnipaque 300 Mg/ml) 100 ml 1X ONCE IART Last administered on at 12:15; Start 03/08/18 at 12:15; Stop 03/08/18 at 12:21; Status DC Phenylephrine HCl (Wander-Synephrine Inj) 10 mg STK-MED ONCE .ROUTE ; Start at 13:25; Stop 03/08/18 at 13:26; Status DC Succinylcholine Chloride (Anectine) 200 mg STK-MED ONCE .ROUTE ; Start at 14:55; Stop 03/08/18 at 14:56; Status DC Propofol 20 ml @ As Directed STK-MED ONCE IV ; Start 03/08/18 at 14:55; Stop 03/08/18 at 14:56; Status DC Ketamine HCl (Ketamine) 50 mg STK-MED ONCE .ROUTE ; Start 03/08/18 at 14:55; Stop 03/08/18 at 14:57; Status DC Dexamethasone Sodium Phosphate (Decadron) 20 mg STK-MED ONCE .ROUTE ; Start at 14:56; Stop 03/08/18 at 14:58; Status DC Ondansetron HCl (Zofran) 4 mg STK-MED ONCE .ROUTE ; Start 03/08/18 at 14:57; Stop 03/08/18 at 14:58; Status DC Lidocaine HCl (Lidocaine Pf 2% Vial) 5 ml STK-MED ONCE .ROUTE ; Start 03/08/18 at 14:57; Stop 03/08/18 at 14:58; Status DC Propofol 20 ml @ As Directed STK-MED ONCE IV ; Start 03/08/18 at 14:57; Stop 03/08/18 at 14:58; Status DC Fentanyl Citrate (Fentanyl 5ml Vial) 250 mcg STK-MED ONCE .ROUTE ; Start at 15:54; Stop 03/08/18 at 15:55; Status DC Rocuronium [place] (Zemuron) 100 mg STK-MED ONCE .ROUTE ; Start 03/08/18 at 15: 55; Stop 03/08/18 at 15:57; Status DC Cefazolin Sodium 100 ml @ As Directed STK-MED ONCE IV ; Start 03/08/18 at 15: 57; Stop 03/08/18 at 15:59; Status DC Cellulose (Surgicel Hemostat 4x8) 1 each STK-MED ONCE .ROUTE Last administered on 03/08/18at 15:53; Start 03/08/18 at 16:27; Stop 03/08/18 at 16:28; Status DC Cellulose (Surgicel Hemostat 2x3) 1 each STK-MED ONCE .ROUTE Last administered on 03/08/18at 15:53; Start 03/08/18 at 16:42; Stop 03/08/18 at 16:44; Status DC Cellulose (Surgicel Hemostat 2x14) 1 each STK-MED ONCE .ROUTE ; Start 03/08/18 at 16:42; Stop 03/08/18 at 16:44; Status DC Cellulose (Surgicel Hemostat 4x8) 1 each STK-MED ONCE .ROUTE Last administered on 03/08/18at 15:53; Start 03/08/18 at 16:42; Stop 03/08/18 at 16:44; Status DC Calcium Chloride (Calcium Chloride) 1,000 mg STK-MED ONCE .ROUTE ; Start at 17:03; Stop 03/08/18 at 17:04; Status DC Calcium Chloride (Calcium Chloride) 1,000 mg STK-MED ONCE .ROUTE ; Start at 17:03; Stop 03/08/18 at 17:04; Status DC Sodium Bicarbonate (Sodium Bicarb Adult 8.4% Syr) 50 meq STK-MED ONCE .ROUTE ; Start 03/08/18 at 17:03; Stop 03/08/18 at 17:04; Status DC Sodium Bicarbonate (Sodium Bicarb Adult 8.4% Syr) 50 meq STK-MED ONCE .ROUTE ; Start 03/08/18 at 17:03; Stop 03/08/18 at 17:04; Status DC Epinephrine HCl (EPINEPHrine SYRINGE) 1 mg STK-MED ONCE .ROUTE ; Start at 17:03; Stop 03/08/18 at 17:04; Status DC Albumin Human 500 ml @ As Directed STK-MED ONCE IV ; Start 03/08/18 at 17:03; Stop 03/08/18 at 17:04; Status DC Sodium Bicarbonate (Sodium Bicarb Adult 8.4% Syr) 50 meq STK-MED ONCE .ROUTE ; Start 03/08/18 at 17:07; Stop 03/08/18 at 17:08; Status DC Sodium Bicarbonate (Sodium Bicarb Adult 8.4% Syr) 50 meq STK-MED ONCE .ROUTE ; Start 03/08/18 at 17:07; Stop 03/08/18 at 17:08; Status DC Cellulose (Surgicel Hemostat 4x8) 1 each STK-MED ONCE TP Last administered on 03/08/18at 15:53; Start 03/08/18 at 15:53; Stop 03/08/18 at 17:40; Status DC Sodium Bicarbonate (Sodium Bicarb Adult 8.4% Syr) 50 meq STK-MED ONCE .ROUTE ; Start 03/08/18 at 17:35; Stop 03/08/18 at 17:37; Status DC Calcium Chloride (Calcium Chloride) 1,000 mg STK-MED ONCE .ROUTE ; Start at 17:35; Stop 03/08/18 at 17:37; Status DC Albumin Human 500 ml @ As Directed STK-MED ONCE IV ; Start 03/08/18 at 17:41; Stop 03/08/18 at 17:43; Status DC Norepinephrine Bitartrate 250 ml @ 1.875 mls/ hr 1X ONCE IV Last administered on 03/08/18at 21:00; Start 03/08/18 at 17:45; Stop 03/09/18 at 08 :10; Status DC Vasopressin 40 unit/Dextrose 102 ml @ 6 mls/hr 1X ONCE IV Last administered on 03/08/18at 20:41; Start 03/08/18 at 18:00; Stop 03/09/18 at 10:59; Status DC Calcium Chloride (Calcium Chloride) 1,000 mg STK-MED ONCE .ROUTE ; Start at 17:57; Stop 03/08/18 at 17:59; Status DC Sodium Bicarbonate (Sodium Bicarb Adult 8.4% Syr) 50 meq STK-MED ONCE .ROUTE ; Start 03/08/18 at 18:04; Stop 03/08/18 at 18:06; Status DC Sodium Bicarbonate (Sodium Bicarb Adult 8.4% Syr) 50 meq STK-MED ONCE .ROUTE ; Start 03/08/18 at 18:05; Stop 03/08/18 at 18:06; Status DC Sodium Bicarbonate (Sodium Bicarb Adult 8.4% Syr) 50 meq STK-MED ONCE .ROUTE ; Start 03/08/18 at 18:07; Stop 03/08/18 at 18:08; Status DC Sodium Bicarbonate (Sodium Bicarb Adult 8.4% Syr) 50 meq STK-MED ONCE .ROUTE ; Start 03/08/18 at 18:07; Stop 03/08/18 at 18:08; Status DC Epinephrine HCl (EPINEPHrine SYRINGE) 1 mg STK-MED ONCE .ROUTE ; Start at 18:40; Stop 03/08/18 at 18:41; Status DC Prochlorperazine Edisylate (Compazine) 10 mg STK-MED ONCE .ROUTE ; Start at 18:42; Stop 03/08/18 at 18:44; Status DC Fentanyl Citrate (Fentanyl 2ml Vial) 100 mcg STK-MED ONCE .ROUTE ; Start at 18:43; Stop 03/08/18 at 18:44; Status DC Sevoflurane (Ultane) 90 ml STK-MED ONCE IH ; Start 03/08/18 at 18:48; Stop at 18:49; Status DC Cellulose (Surgicel Hemostat 2x3) 1 each STK-MED ONCE TP Last administered on 03/08/18at 15:55; Start 03/08/18 at 15:55; Stop 03/08/18 at 19:04; Status DC Cellulose (Surgicel Hemostat 2x3) 1 each STK-MED ONCE TP Last administered on 03/08/18at 15:53; Start 03/08/18 at 15:53; Stop 03/08/18 at 19:04; Status DC Propofol 100 ml @ As Directed STK-MED ONCE IV ; Start 03/08/18 at 19:56; Stop 03/08/18 at 19:58; Status DC Famotidine (Pepcid) 20 mg BID PO ; Start 03/08/18 at 21:00; Stop 03/09/18 at 08:11; Status DC Sodium Chloride (Normal Saline Flush) 3 ml QSHIFT PRN IV AFTER MEDS AND BLOOD DRAWS; Start 03/08/18 at 20:45; Status Cancel Morphine Sulfate (Morphine Sulfate) 1 mg PRN Q1HR PRN IV PAIN Last administered on 03/08/18at 21:12; Start 03/08/18 at 20:45; Stop 03/10/18 at 18: 45; Status DC Ondansetron HCl (Zofran) 4 mg PRN Q6HRS PRN IV NAUESA, 1ST CHOICE; Start 03/08 at 20:45 Fentanyl Citrate 30 ml @ 0 mls/hr CONT PRN IV SEE PROTOCOL Last administered on 03/09/18at 23:16; Start 03/08/18 at 22:15; Stop 03/15/18 at 16:15; Status DC Fentanyl Citrate (Fentanyl 2ml Vial) 25 mcg PRN Q1HR PRN IV SEE COMMENTS; Start 03/08/18 at 22:15; Stop 03/10/18 at 18:45; Status DC Fentanyl Citrate (Fentanyl 2ml Vial) 50 mcg PRN Q1HR PRN IV SEE COMMENTS Last administered on 03/08/18at 22:41; Start 03/08/18 at 22:15; Stop 03/12/18 at 16: 26; Status DC Chlorhexidine Gluconate (Peridex) 15 ml BID MM Last administered on 03/13/18at 09 :00; Start 03/09/18 at 09:00; Stop 03/13/18 at 12:19; Status DC Midazolam HCl 100 ml @ 0 mls/hr CONT PRN IV SEE PROTOCOL Last administered on 03/09/18at 21:43; Start 03/08/18 at 22:15; Stop 03/10/18 at 18:45; Status DC Factor IX (Pha) (Novoseven Rt) 1 mg 1X ONCE IV Last administered on at 01:09; Start 03/09/18 at 01:00; Stop 03/09/18 at 01:01; Status DC Lorazepam (Ativan) 2 mg STK-MED ONCE .ROUTE ; Start 03/09/18 at 01:15; Stop at 01:16; Status DC Norepinephrine Bitartrate 250 ml @ 1.875 mls/ hr CONT PRN IV SEE I/O RECORD Last administered on 03/09/18at 17:41; Start 03/09/18 at 01:45; Stop 03/15/18 at 16:14; Status DC Cefazolin Sodium/ Dextrose 50 ml @ 100 mls/hr 1X PREOP PRN IV PRIOR TO PROCEDURE Last administered on 03/09/18at 02:00; Start 03/09/18 at 02:00; Stop 03/10/18 at 01:59; Status DC Rocuronium [place] (Zemuron) 100 mg STK-MED ONCE .ROUTE ; Start 03/09/18 at 01: 57; Stop 03/09/18 at 01:59; Status DC Fentanyl Citrate (Fentanyl 5ml Vial) 250 mcg STK-MED ONCE .ROUTE ; Start at 02:13; Stop 03/09/18 at 02:14; Status DC Cellulose (Surgicel Hemostat 2x3) 1 each STK-MED ONCE .ROUTE ; Start 03/09/18 at 02:23; Stop 03/09/18 at 02:25; Status DC Cellulose (Surgicel Hemostat 2x14) 1 each STK-MED ONCE .ROUTE ; Start 03/09/18 at 02:23; Stop 03/09/18 at 02:25; Status DC Cellulose (Surgicel Hemostat 4x8) 1 each STK-MED ONCE .ROUTE Last administered on 03/09/18at 02:04; Start 03/09/18 at 02:23; Stop 03/09/18 at 02:25; Status DC Sodium Chloride (Normal Saline Flush) 3 ml QSHIFT PRN IV AFTER MEDS AND BLOOD DRAWS; Start 03/09/18 at 03:30 Cellulose (Surgicel Hemostat 4x8) 1 each STK-MED ONCE TP Last administered on 03/09/18at 02:04; Start 03/09/18 at 02:04; Stop 03/09/18 at 03:20; Status DC Cellulose (Surgicel Hemostat 4x8) 1 each STK-MED ONCE TP Last administered on 03/09/18at 02:04; Start 03/09/18 at 02:04; Stop 03/09/18 at 03:20; Status DC Sodium Bicarbonate (Sodium Bicarb Adult 8.4% Syr) 150 meq STK-MED ONCE .ROUTE ; Start 03/08/18 at 10:00; Stop 03/09/18 at 10:30; Status DC Dopamine HCl/ Dextrose (DOPamine 400MG/ 250ML PREMIX) 400 mg STK-MED ONCE IV ; Start 03/08/18 at 10:00; Stop 03/09/18 at 10:30; Status DC Potassium Chloride/Dextrose 1,000 ml @ 100 mls/hr Q10H IV Last administered on 03/09/18at 11:22; Start 03/09/18 at 11:00; Stop 03/09/18 at 20:59; Status DC Magnesium Sulfate/ Dextrose 100 ml @ 25 mls/hr 1X ONCE IV Last administered on 03/09/18at 13:45; Start 03/09/18 at 12:45; Stop 03/09/18 at 16:44; Status DC Potassium Chloride/Water 50 ml @ 50 mls/hr 1X ONCE IV Last administered on at 13:43; Start 03/09/18 at 12:45; Stop 03/09/18 at 13:44; Status DC Magnesium Sulfate 50 ml @ 25 mls/hr PRN DAILY PRN IV for Mag < 1.7 on am labs Last administered on 03/10/18at 06:17; Start 03/09/18 at 13:45 Sodium Chloride 500 ml @ 500 mls/hr QIDPRN PRN IV U/O <30 cc/hr Last administered on 03/10/18at 09:00; Start 03/09/18 at 19:45 Info (Tpn Per Pharmacy) 1 each PRN DAILY PRN MC SEE COMMENTS; Start 03/10/18 at 09:00; Stop 03/10/18 at 12:42; Status DC Potassium Phosphate 13.6 mmol/Dextrose 104.5333 ml @ 52.267 m... Q2H IV Last administered on 03/10/18at 10:34; Start 03/10/18 at 10:00; Stop 03/10/18 at 11:59; Status DC Amino Acids/ Glycerin/ Electrolytes 1,000 ml @ 100 mls/hr Q10H IV Last administered on 03/11/18at 21:42; Start 03/10/18 at 13:00; Stop 03/12/18 at 21:59; Status DC Ringer's Solution 500 ml @ 500 mls/hr 1X ONCE IV Last administered on at 18:55; Start 03/10/18 at 19:45; Stop 03/10/18 at 20:44; Status DC Dextrose (Dextrose 50%-Water Syringe) 12.5 gm PRN Q15MIN PRN IV SEE COMMENTS; Start 03/11/18 at 07:00 Ringer's Solution 500 ml @ 500 mls/hr Q1H PRN IV FLUID LOSS Last administered on 03/13/18at 00:39; Start 03/11/18 at 07:00 Pantoprazole Sodium (PROTONIX VIAL for IV PUSH) 40 mg DAILY IVP Last administered on 03/17/18at 08:07; Start 03/12/18 at 09:00; Stop 03/17/18 at 09:48; Status DC Potassium Phosphate 13.6 mmol/Dextrose 104.5333 ml @ 52.267 m... Q2H IV Last administered on 03/11/18at 21:42; Start 03/11/18 at 14:00; Stop 03/11/18 at 19:59; Status DC Info (Tpn Per Pharmacy) 1 each PRN DAILY PRN MC SEE COMMENTS Last administered on 03/17/18at 13:57; Start 03/12/18 at 09:30 Potassium Phosphate 13.6 mmol/Sodium Chloride 104.5333 ml @ 52.267 m... Q2H IV Last administered on 03/12/18at 13:30; Start 03/12/18 at 09:30; Stop 03/12/18 at 15:29; Status DC Albumin Human 100 ml @ 100 mls/hr TID IV Last administered on 03/14/18at 09:49; Start 03/12/18 at 14:00; Stop 03/14/18 at 09:59; Status DC Info (Tpn Per Pharmacy) 1 each PRN DAILY PRN MC SEE COMMENTS; Start 03/12/18 at 11:00; Status UNV Sodium Acetate 90 meq/Potassium Chloride 50 meq/ Potassium Phosphate 13.6 mmol/ Magnesium Sulfate 10 meq/ Calcium Gluconate 10 meq/ Multivitamins 10 ml/Chromium / Copper/Manganese/ Seleni/Zn 1 ml/ Total Parenteral Nutrition/Amino Acids/ Dextrose/ Fat Emulsion Intravenous 1,512 ml @ 63 mls/hr TPN CONT IV ; Start at 22:00; Stop 03/12/18 at 22:00; Status DC Sodium Acetate 60 meq/Potassium Chloride 50 meq/ Potassium Phosphate 13.6 mmol/ Magnesium Sulfate 10 meq/ Calcium Gluconate 10 meq/ Multivitamins 10 ml/Chromium / Copper/Manganese/ Seleni/Zn 1 ml/ Total Parenteral Nutrition/Amino Acids/ Dextrose/ Fat Emulsion Intravenous 1,512 ml @ 63 mls/hr TPN CONT IV Last administered on 03/12/18at 21:12; Start 03/12/18 at 22:00; Stop 03/13/18 at 21:59; Status DC Magnesium Sulfate 50 ml @ 25 mls/hr 1X ONCE IV Last administered on 03/13/18at 09:30; Start 03/13/18 at 09:30; Stop 03/13/18 at 11:29; Status DC Epinephrine (S2 Racepinephrine) 0.5 ml 1X ONCE NEB Last administered on at 11:30; Start 03/13/18 at 11:30; Stop 03/13/18 at 11:31; Status DC Potassium Phosphate 13.6 mmol/Sodium Chloride 104.5333 ml @ 52.267 m... Q2H IV Last administered on 03/13/18at 15:00; Start 03/13/18 at 13:00; Stop 03/13/18 at 16:59; Status DC Sodium Acetate 60 meq/Potassium Chloride 40 meq/ Potassium Phosphate 25 mmol/ Magnesium Sulfate 15 meq/Calcium Gluconate 5 meq/ Multivitamins 10 ml/Chromium/ Copper/Manganese/ Seleni/Zn 1 ml/ Total Parenteral Nutrition/Amino Acids/ Dextrose/ Fat Emulsion Intravenous 1,512 ml @ 63 mls/hr TPN CONT IV Last administered on 03/13/18at 21:16; Start 03/13/18 at 22:00; Stop 03/14/18 at 21:59; Status DC Iohexol (Omnipaque 300 Mg/ml) 75 ml 1X ONCE IV ; Start 03/13/18 at 12:45; Stop 03/13/18 at 12:46; Status DC Info (CONTRAST GIVEN -- Rx MONITORING) 1 each PRN DAILY PRN MC SEE COMMENTS; Start 03/13/18 at 12:45; Stop 03/15/18 at 12:45; Status DC Albuterol/ Ipratropium (Duoneb) 3 ml RTQID NEB Last administered on 03/18/18at 11 :25; Start 03/13/18 at 18:30 Fentanyl Citrate (Fentanyl 2ml Vial) 50 mcg PRN Q2HR PRN IV PAIN Last administered on 03/18/18at 11:15; Start 03/14/18 at 08:15 Potassium Chloride/Sodium Chloride 1,000 ml @ 75 mls/hr 1X ONCE IV ; Start 03/14/18 at 08:15; Stop 03/14/18 at 21:34; Status UNV Calcium Gluconate 1000 mg/Dextrose 110 ml @ 220 mls/hr 1X ONCE IV Last administered on 03/14/18at 09:36; Start 03/14/18 at 09:00; Stop 03/14/18 at 09:29; Status DC Iohexol (Omnipaque 300 Mg/ml) 75 ml 1X ONCE IV ; Start 03/14/18 at 08:30; Stop 03/14/18 at 08:31; Status DC Potassium Chloride/Water 50 ml @ 50 mls/hr Q1H IV Last administered on at 10:00; Start 03/14/18 at 09:00; Stop 03/14/18 at 10:59; Status DC Sodium Acetate 60 meq/Potassium Chloride 40 meq/ Potassium Acetate 10 meq/ Potassium Phosphate 25 mmol/ Magnesium Sulfate 15 meq/Calcium Gluconate 5 meq/ Multivitamins 10 ml/Chromium/ Copper/Manganese/ Seleni/Zn 1 ml/ Total Parenteral Nutrition/Amino Acids/Dextrose/ Fat Emulsion Intravenous 1,512 ml @ 63 mls/hr TPN CONT IV Last administered on 03/14/18at 21:51; Start 03/14/18 at 22 :00; Stop 03/15/18 at 21:59; Status DC Magnesium Sulfate/ Dextrose 100 ml @ 100 mls/hr 1X ONCE IV Last administered on 03/15/18at 08:59; Start 03/15/18 at 09:00; Stop 03/15/18 at 09:59; Status DC Sodium Chloride 30 meq/Sodium Acetate 60 meq/ Potassium Chloride 40 meq/ Potassium Acetate 10 meq/Potassium Phosphate 25 mmol/ Magnesium Sulfate 20 meq/ Calcium Gluconate 5 meq/ Multivitamins 10 ml/Chromium/ Copper/Manganese/ Seleni/ Zn 1 ml/ Total Parenteral Nutrition/Amino Acids/Dextrose/ Fat Emuls... 1,512 ml @ 63 mls/hr TPN CONT IV Last administered on 03/15/18at 21:48; Start 03/15/18 at 22:00; Stop 03/16/18 at 21:59; Status DC Sodium Chloride 30 meq/Sodium Acetate 60 meq/ Potassium Chloride 40 meq/ Potassium Acetate 10 meq/Potassium Phosphate 25 mmol/ Magnesium Sulfate 20 meq/ Calcium Gluconate 5 meq/ Multivitamins 10 ml/Chromium/ Copper/Manganese/ Seleni/ Zn 1 ml/ Total Parenteral Nutrition/Amino Acids/Dextrose/ Fat Emuls... 1,512 ml @ 63 mls/hr TPN CONT IV Last administered on 03/16/18at 22:01; Start 03/16/18 at 22:00; Stop 03/17/18 at 21:59; Status DC Pantoprazole Sodium (Protonix) 40 mg DAILYAC PO Last administered on 03/18/18at 07:56; Start 03/18/18 at 07:30 Sodium Chloride 30 meq/Sodium Acetate 60 meq/ Potassium Chloride 40 meq/ Potassium Acetate 10 meq/Potassium Phosphate 25 mmol/ Magnesium Sulfate 20 meq/ Calcium Gluconate 5 meq/ Multivitamins 10 ml/Chromium/ Copper/Manganese/ Seleni/ Zn 1 ml/ Total Parenteral Nutrition/Amino Acids/Dextrose/ Fat Emuls... 1,512 ml @ 63 mls/hr TPN CONT IV Last administered on 03/17/18at 21:59; Start 03/17/18 at 22:00; Stop 03/18/18 at 21:59 Active Scripts Active Reported Prilosec Otc (Omeprazole Magnesium) 20 Mg Tablet.dr 1 Tab PO DAILY Simvastatin 20 Mg Tablet 1 Tab PO QHS Vitals/I & O Vital Sign - Last 24 Hours 03/17/18 03/17/18 03/17/18 03/17/18 15:00 16:23 16:31 19:00 Temp 98.5 97.7 98.5 97.7 Pulse 82 85 Resp 18 16 16 B/P (MAP) 99/54 (69) 117/53 (74) Pulse Ox 100 95 99 O2 Delivery Room Air Room Air Room Air Room Air 03/17/18 03/17/18 03/18/18 03/18/18 19:40 23:00 02:32 03:00 Temp 98.6 98.1 98.6 98.1 Pulse 80 85 Resp 18 20 16 B/P (MAP) 99/52 (68) 115/58 (77) Pulse Ox 97 98 O2 Delivery Room Air Room Air Room Air Room Air 03/18/18 03/18/18 03/18/18 03/18/18 03:02 07:00 07:36 08:10 Temp 98.7 98.7 Pulse 79 Resp 20 16 B/P (MAP) 102/53 (69) Pulse Ox 96 97 O2 Delivery Room Air Room Air Room Air Room Air 03/18/18 03/18/18 11:15 11:26 Resp 18 O2 Delivery Room Air Room Air Intake and Output 03/17/18 03/17/18 03/18/18 15:01 23:01 07:01 Intake Total 610 ml 75 ml 1510 ml Balance 610 ml 75 ml 1510 ml ZINA CALVO MD Mar 18, 2018 11:50
--- NOTE | 2018-03-18 11:56 | DISCH ---
DISCHARGE WITH HOME HEALTH DISCHARGE INFORMATION: Final Diagnosis: Problems Medical Problems: (1) Hypotension Status: Acute Condition on Discharge: Stable CODE STATUS: Code Status: Full HOME HEALTH: Face to Face: I certify this patient is under my care and that I, or a nurse practitioner or physician's executive personal assistant working with me, had a face to face encounter that meets the physician face to face encounter requirements with this patient on []. POST DISCHARGE ORDERS: Activity Instructions for Disc: No restrictions Weight Bearing Status after Di: No restrictions DIET AFTER DISCHARGE: Cardiac CERTIFICATION STATEMENT: Certification Statement: Certification Statement: Based on the above finding, I certify that this patient is confined to the home and needs intermittent residential care, physical therapy and/or speech therapy, or continues to need occupational therapy.~ This patient is under my care, and I have initiated the establishment of the plan of care.~ This patient will be followed by myself or a community physician who will periodically review the plan of care. 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
--- NOTE | 2018-03-18 13:08 | PDOC ---
SURGICAL PROGRESS NOTE Subjective Pt didn't sleep well last night, but otherwise doing well Vital Signs Vital Signs Date Time Temp Pulse Resp B/P (MAP) Pulse Ox O2 Delivery O2 Flow Rate FiO2 03/18/18 11:44 18 Room Air 03/18/18 07:36 97 03/18/18 07:00 98.7 79 102/53 (69) 98.7 I&O Intake and Output 03/18/18 07:01 Intake Total 2195 ml Balance 2195 ml Intake Oral 685 ml IV Total 755 ml Other 755 ml # Voids 8 # Bowel Movements 1 PATIENT HAS A PEREIRA: No General: Alert, Oriented X3, Cooperative, No acute distress Abdomen: Soft, No tenderness, Other (incision healing well, G-tube in place, drain site minimizing) Labs Laboratory Tests Test 03/17/18 10:40 Sodium Level 135 mmol/L (136-145) Potassium Level 4.4 mmol/L (3.5-5.1) Chloride Level 101 mmol/L (98-107) Carbon Dioxide Level 27 mmol/L (21-32) Anion Gap 7 (6-14) Blood Urea Nitrogen 14 mg/dL (7-20) Creatinine 0.5 mg/dL (0.6-1.0) Estimated GFR (Cockcroft-Gault) 122.0 Glucose Level 134 mg/dL (70-99) Calcium Level 8.0 mg/dL (8.5-10.1) Problem List Problems Medical Problems: (1) Hypotension Status: Acute Assessment/Plan s/p xlap doing well ADAT d/c planning d/w pt and pt's MEAGAN METZ MD Mar 18, 2018 13:08
[2018-03-18] MEDS: TPN PER PHARMACY MC PRN (14:19)
--- NOTE | 2018-03-18 14:20 | NUR ---
Pharmacy TPN Dosing Note S: CARLA ESPINOZA is a 72 year old F Currently receiving Central Continuous TPN started 03/12/18 B:Pertinent PMH: HEPATIC CARCINOMA, MALNUTRITION Height: 5 feet, 4 inches Weight: 60.3 kg Current diet: full liquids LABS (03/17/18): Sodium: 134 Potassium: 4.4 Chloride: 101 Calcium: 8.0 Corrected Calcium: 9.04 Magnesium: 1.9 CO2: 27 SCr: 0.5 Glucose: 134 Albumin: 2.7 AST: 66 (03/13) ALT: 37 (03/13) TPN FORMULA: TPN TYPE: Central Continuous AMINO ACIDS: 70 gm DEXTROSE: 195 gm LIPIDS: 20 gm SODIUM CHLORIDE: 30 mEq SODIUM ACETATE: 60 mEq POTASSIUM CHLORIDE: 40 mEq POTASSIUM ACETATE: 10 mEq POTASSIUM PHOSPHATE: 25 mmol MAGNESIUM: 20 mEq CALCIUM: 5 mEq MULTIPLE VITAMIN: 10 ml TRACE ELEMENTS: 1 ml TPN PLAN: -No labs today, patient taking very little PO. Continue current TPN. -CMP, mag, phos, triglycerides tomorrow. R: Continue TPN @ current rate and no changes. Will monitor electrolytes, glucose, and tolerance to TPN. AMBER PATEL [facility], 03/18/18 0050
[2018-03-18 15:00] VITALS: BP 104/49
[2018-03-18] MEDS: oxyCODONE/APAP 5/325 1 TAB TABLET PO PRN (16:33)
[2018-03-18 19:00] VITALS: BP 106/51
--- NOTE | 2018-03-18 19:38 | NUR ---
I have reviewed the documentation and assessments completed by LONG Guillermo.
[2018-03-18] MEDS ORDERED: [UNRECOGNIZED DRUG - OTHER] IV SCH ×12 (22:00)
[2018-03-18] MEDS ORDERED: DEXTROSE 70% IV SCH ×12 (22:00)
[2018-03-18] MEDS ORDERED: TOTAL PARENTERAL NUTRITION IV SCH ×12 (22:00)
[2018-03-18] MEDS ORDERED: AMINO ACID IV SCH ×12 (22:00)
[2018-03-18 23:00] VITALS: BP 92/45
[2018-03-19 03:00] VITALS: BP 101/47
[2018-03-19] MEDS: PANTOPRAZOLE 40 MG TABLET.DR. PO SCH (06:02)
[2018-03-19] MEDS: oxyCODONE/APAP 5/325 1 TAB TABLET PO PRN ×2 (06:20→16:16)
[2018-03-19 07:00] VITALS: BP 100/49
[2018-03-19 07:01] LABS: CALCIUM 7.8 mg/dL (8.5-10.1); CREATININE 0.5 mg/dL (0.6-1.0); MAGNESIUM 1.8 mg/dL (1.8-2.4); PHOSPHORUS 3.4 mg/dL (2.6-4.7); POTASSIUM 3.9 mmol/L (3.5-5.1)
--- NOTE | 2018-03-19 08:42 | PDOC ---
SURGICAL PROGRESS NOTE Subjective tolerating diet pain minimal ambulating Vital Signs Vital Signs Date Time Temp Pulse Resp B/P (MAP) Pulse Ox O2 Delivery O2 Flow Rate FiO2 03/19/18 07:00 98.4 82 16 100/49 (66) 98 Room Air 98.4 I&O Intake and Output 03/19/18 07:01 Intake Total 300 ml Balance 300 ml Intake Oral 300 ml # Voids 8 General: Alert, Oriented X3, Cooperative, No acute distress Abdomen: Soft, Other (drainage serosang, g tube in place, clamped ) Labs Laboratory Tests Test 03/17/18 10:40 03/19/18 05:00 Sodium Level 135 mmol/L (136-145) 137 mmol/L (136-145) Potassium Level 4.4 mmol/L (3.5-5.1) 3.9 mmol/L (3.5-5.1) Chloride Level 101 mmol/L (98-107) 105 mmol/L (98-107) Carbon Dioxide Level 27 mmol/L (21-32) 26 mmol/L (21-32) Anion Gap 7 (6-14) 6 (6-14) Blood Urea Nitrogen 14 mg/dL (7-20) 12 mg/dL (7-20) Creatinine 0.5 mg/dL (0.6-1.0) 0.5 mg/dL (0.6-1.0) Estimated GFR (Cockcroft-Gault) 122.0 122.0 Glucose Level 134 mg/dL (70-99) 103 mg/dL (70-99) Calcium Level 8.0 mg/dL (8.5-10.1) 7.8 mg/dL (8.5-10.1) Phosphorus Level 3.4 mg/dL (2.6-4.7) Magnesium Level 1.8 mg/dL (1.8-2.4) Triglycerides Level 28 mg/dL (0-150) Laboratory Tests Test 03/19/18 05:00 Sodium Level 137 mmol/L (136-145) Potassium Level 3.9 mmol/L (3.5-5.1) Chloride Level 105 mmol/L (98-107) Carbon Dioxide Level 26 mmol/L (21-32) Anion Gap 6 (6-14) Blood Urea Nitrogen 12 mg/dL (7-20) Creatinine 0.5 mg/dL (0.6-1.0) Estimated GFR (Cockcroft-Gault) 122.0 Glucose Level 103 mg/dL (70-99) Calcium Level 7.8 mg/dL (8.5-10.1) Phosphorus Level 3.4 mg/dL (2.6-4.7) Magnesium Level 1.8 mg/dL (1.8-2.4) Triglycerides Level 28 mg/dL (0-150) Problem List Problems Medical Problems: (1) Hypotension Status: Acute Assessment/Plan supportive care dc soon will need to DC with G tube will need pneumococcal and meningococcal vaccines in about 2 weeks FU with liver specialist once home GI eval and scope in 3 months, g tube can be removed at that time MARGARITO PECK APRN Mar 19, 2018 08:42
[2018-03-19] MEDS: IPRATRPIUM/ALBUTEROL 0.5/2.5MG 3 ML NEBU. NEB SCH ×4 (10:53→20:12)
[2018-03-19 11:00] VITALS: BP 105/47
--- NOTE | 2018-03-19 12:12 | PDOC ---
Subjective: Subjective: Feels pretty good, tolerating PO w/o much pain. Objective: Vital Signs: Vital Signs Date Time Temp Pulse Resp B/P (MAP) Pulse Ox O2 Delivery O2 Flow Rate FiO2 03/19/18 11:00 98.6 80 16 105/47 (66) 100 Room Air 98.6 Labs: Laboratory Tests Test 03/19/18 05:00 Sodium Level 137 mmol/L Potassium Level 3.9 mmol/L Chloride Level 105 mmol/L Carbon Dioxide Level 26 mmol/L Anion Gap 6 Blood Urea Nitrogen 12 mg/dL Creatinine 0.5 mg/dL Estimated GFR (Cockcroft-Gault) 122.0 Glucose Level 103 mg/dL Calcium Level 7.8 mg/dL Phosphorus Level 3.4 mg/dL Magnesium Level 1.8 mg/dL Triglycerides Level 28 mg/dL PE: GEN: NAD, up to chair LUNGS: room air HEART: RRR ABD: G tube NEURO/PSYCH: A & O 3 A/P: S/p splenectomy -- Improved. NASIR NGUYEN Mar 19, 2018 12:12
--- NOTE | 2018-03-19 13:00 | NUR ---
SW following. Pt can discharge to go back home to [place] if she can tolerate regular diet. Pt can fu with PCP in order to get home health if needed upon return to [place]. SW will continue to follow.
[2018-03-19 15:00] VITALS: BP 97/48
--- NOTE | 2018-03-19 16:02 | PDOC ---
PROGRESS NOTES Chief Complaint Chief Complaint Acute blood loss anemia - 2/2 gastric varices bleeding s/p Splenectomy, gastrotomy with control of varices, G-tube placement 03/08 and clots evacuation on 03/09 HCC - s/p surgical resection Hypotension - s.o ICU off pressors, stable, resolved retention, larry removed. History of Present Illness History of Present Illness PLAN HAs TPN via RT central line. will stop today and tolerating regular diet Ambulates well Dressing dry, G tube in place. doing well with PT off abx larry dc/d dc pending ability to tolerate PO apprec gen sx recommendations. will need to DC with G tube needs pneumococcal and meningococcal vaccines in about 2 weeks following discharge FU with liver specialist once home per sx: GI eval and scope in 3 months, g tube can be removed at that time Vitals Vitals Vital Signs Date Time Temp Pulse Resp B/P (MAP) Pulse Ox O2 Delivery O2 Flow Rate FiO2 03/19/18 11:00 98.6 80 16 105/47 (66) 100 Room Air 98.6 Physical Exam Physical Exam intubated, sedated General: Alert, Oriented X3, Cooperative, No acute distress Heart: Regular rate, No murmurs Lungs: Clear Abdomen: Soft, Other (drainage serosang, g tube in place, clamped ) Extremities: No edema Skin: No rashes, No breakdown Labs LABS Laboratory Tests Test 03/19/18 05:00 Sodium Level 137 mmol/L (136-145) Potassium Level 3.9 mmol/L (3.5-5.1) Chloride Level 105 mmol/L (98-107) Carbon Dioxide Level 26 mmol/L (21-32) Anion Gap 6 (6-14) Blood Urea Nitrogen 12 mg/dL (7-20) Creatinine 0.5 mg/dL (0.6-1.0) Estimated GFR (Cockcroft-Gault) 122.0 Glucose Level 103 mg/dL (70-99) Calcium Level 7.8 mg/dL (8.5-10.1) Phosphorus Level 3.4 mg/dL (2.6-4.7) Magnesium Level 1.8 mg/dL (1.8-2.4) Triglycerides Level 28 mg/dL (0-150) Assessment and Plan Assessmemt and Plan Problems Medical Problems: (1) Hypotension Status: Acute Comment Review of Relevant I have reviewed the following items scottie (where applicable) has been applied. Labs Laboratory Tests Test 03/19/18 05:00 Sodium Level 137 mmol/L (136-145) Potassium Level 3.9 mmol/L (3.5-5.1) Chloride Level 105 mmol/L (98-107) Carbon Dioxide Level 26 mmol/L (21-32) Anion Gap 6 (6-14) Blood Urea Nitrogen 12 mg/dL (7-20) Creatinine 0.5 mg/dL (0.6-1.0) Estimated GFR (Cockcroft-Gault) 122.0 Glucose Level 103 mg/dL (70-99) Calcium Level 7.8 mg/dL (8.5-10.1) Phosphorus Level 3.4 mg/dL (2.6-4.7) Magnesium Level 1.8 mg/dL (1.8-2.4) Triglycerides Level 28 mg/dL (0-150) Laboratory Tests Test 03/19/18 05:00 Sodium Level 137 mmol/L (136-145) Potassium Level 3.9 mmol/L (3.5-5.1) Chloride Level 105 mmol/L (98-107) Carbon Dioxide Level 26 mmol/L (21-32) Anion Gap 6 (6-14) Blood Urea Nitrogen 12 mg/dL (7-20) Creatinine 0.5 mg/dL (0.6-1.0) Estimated GFR (Cockcroft-Gault) 122.0 Glucose Level 103 mg/dL (70-99) Calcium Level 7.8 mg/dL (8.5-10.1) Phosphorus Level 3.4 mg/dL (2.6-4.7) Magnesium Level 1.8 mg/dL (1.8-2.4) Triglycerides Level 28 mg/dL (0-150) Microbiology 03/09/18 Urine Culture - Final, Complete 03/09/18 Urine Culture Result 1 (JEFFRY) - Final, Complete Medications Current Medications Sodium Chloride 500 ml @ 500 mls/hr Q1H IV Last administered on 03/07/18at 18: 29; Start 03/07/18 at 18:30; Stop 03/07/18 at 18:42; Status DC Pantoprazole Sodium (PROTONIX VIAL for IV PUSH) 80 mg 1X ONCE IVP Last administered on 03/07/18at 19:00; Start 03/07/18 at 18:30; Stop 03/07/18 at 18 :32; Status DC Octreotide Acetate 500 mcg/ Sodium Chloride 101 ml @ 5.05 mls/hr CONT PRN IV SEE I/O RECORD Last administered on 03/09/18at 10:38; Start 03/07/18 at 19:30; Stop 03/09/18 at 11:47; Status DC Ondansetron HCl (Zofran) 4 mg PRN Q8HRS PRN IV NAUSEA/VOMITING; Start at 19:15; Stop 03/08/18 at 19:14; Status DC Iohexol (Omnipaque 300 Mg/ml) 75 ml 1X ONCE IV Last administered on at 20:32; Start 03/07/18 at 19:15; Stop 03/07/18 at 19:16; Status DC Info (CONTRAST GIVEN -- Rx MONITORING) 1 each PRN DAILY PRN MC SEE COMMENTS; Start 03/07/18 at 19:15; Stop 03/09/18 at 19:14; Status DC Propofol 20 ml @ As Directed STK-MED ONCE IV ; Start 03/07/18 at 22:37; Stop 03/07/18 at 22:38; Status DC Pantoprazole Sodium 80 mg/ Sodium Chloride 100 ml @ 10 mls/hr Q10H IV Last administered on 03/10/18at 22:46; Start 03/07/18 at 23:00; Stop 03/11/18 at 11:10 ; Status DC Ringer's Solution 1,000 ml @ 200 mls/hr Q5H IV Last administered on at 20:41; Start 03/07/18 at 23:15; Stop 03/09/18 at 10:58; Status DC Dopamine HCl/ Dextrose 250 ml @ 4.461 mls/ hr CONT PRN IV SEE I/O RECORD; Start 03/08/18 at 09:30; Stop 03/15/18 at 16:14; Status DC Lidocaine/Sodium Bicarbonate (Buffered Lidocaine 1%) 3 ml STK-MED ONCE .ROUTE ; Start 03/08/18 at 11:47; Stop 03/08/18 at 11:48; Status DC Iohexol (Omnipaque 300 Mg/ml) 100 ml STK-MED ONCE .ROUTE ; Start 03/08/18 at 11 :47; Stop 03/08/18 at 11:48; Status DC Heparin Sodium/ Sodium Chloride 1,000 ml @ As Directed STK-MED ONCE .ROUTE ; Start 03/08/18 at 11:47; Stop 03/08/18 at 11:48; Status DC Midazolam HCl (Versed) 2 mg STK-MED ONCE .ROUTE ; Start 03/08/18 at 12:06; Stop 03/08/18 at 12:07; Status DC Fentanyl Citrate (Fentanyl 2ml Vial) 100 mcg STK-MED ONCE .ROUTE ; Start at 12:06; Stop 03/08/18 at 12:07; Status DC Heparin Sodium/ Sodium Chloride (HEPARIN for ARTERIAL LINE FLUSH) 1,000 unit 1X ONCE IART Last administered on 03/08/18at 12:30; Start 03/08/18 at 12:30; Stop 03/08/18 at 12:31; Status DC Lidocaine/Sodium Bicarbonate (Buffered Lidocaine 1%) 3 ml 1X ONCE IJ Last administered on 03/08/18at 12:15; Start 03/08/18 at 12:15; Stop 03/08/18 at 12 :21; Status DC Midazolam HCl (Versed) 2 mg 1X ONCE IV ; Start 03/08/18 at 12:15; Stop at 12:21; Status DC Fentanyl Citrate (Fentanyl 2ml Vial) 100 mcg 1X ONCE IV Last administered on 03/08/18at 12:15; Start 03/08/18 at 12:15; Stop 03/08/18 at 12:21; Status DC Iohexol (Omnipaque 300 Mg/ml) 100 ml 1X ONCE IART Last administered on at 12:15; Start 03/08/18 at 12:15; Stop 03/08/18 at 12:21; Status DC Phenylephrine HCl (Wander-Synephrine Inj) 10 mg STK-MED ONCE .ROUTE ; Start at 13:25; Stop 03/08/18 at 13:26; Status DC Succinylcholine Chloride (Anectine) 200 mg STK-MED ONCE .ROUTE ; Start at 14:55; Stop 03/08/18 at 14:56; Status DC Propofol 20 ml @ As Directed STK-MED ONCE IV ; Start 03/08/18 at 14:55; Stop 03/08/18 at 14:56; Status DC Ketamine HCl (Ketamine) 50 mg STK-MED ONCE .ROUTE ; Start 03/08/18 at 14:55; Stop 03/08/18 at 14:57; Status DC Dexamethasone Sodium Phosphate (Decadron) 20 mg STK-MED ONCE .ROUTE ; Start at 14:56; Stop 03/08/18 at 14:58; Status DC Ondansetron HCl (Zofran) 4 mg STK-MED ONCE .ROUTE ; Start 03/08/18 at 14:57; Stop 03/08/18 at 14:58; Status DC Lidocaine HCl (Lidocaine Pf 2% Vial) 5 ml STK-MED ONCE .ROUTE ; Start 03/08/18 at 14:57; Stop 03/08/18 at 14:58; Status DC Propofol 20 ml @ As Directed STK-MED ONCE IV ; Start 03/08/18 at 14:57; Stop 03/08/18 at 14:58; Status DC Fentanyl Citrate (Fentanyl 5ml Vial) 250 mcg STK-MED ONCE .ROUTE ; Start at 15:54; Stop 03/08/18 at 15:55; Status DC Rocuronium [place] (Zemuron) 100 mg STK-MED ONCE .ROUTE ; Start 03/08/18 at 15: 55; Stop 03/08/18 at 15:57; Status DC Cefazolin Sodium 100 ml @ As Directed STK-MED ONCE IV ; Start 03/08/18 at 15: 57; Stop 03/08/18 at 15:59; Status DC Cellulose (Surgicel Hemostat 4x8) 1 each STK-MED ONCE .ROUTE Last administered on 03/08/18at 15:53; Start 03/08/18 at 16:27; Stop 03/08/18 at 16:28; Status DC Cellulose (Surgicel Hemostat 2x3) 1 each STK-MED ONCE .ROUTE Last administered on 03/08/18at 15:53; Start 03/08/18 at 16:42; Stop 03/08/18 at 16:44; Status DC Cellulose (Surgicel Hemostat 2x14) 1 each STK-MED ONCE .ROUTE ; Start 03/08/18 at 16:42; Stop 03/08/18 at 16:44; Status DC Cellulose (Surgicel Hemostat 4x8) 1 each STK-MED ONCE .ROUTE Last administered on 03/08/18at 15:53; Start 03/08/18 at 16:42; Stop 03/08/18 at 16:44; Status DC Calcium Chloride (Calcium Chloride) 1,000 mg STK-MED ONCE .ROUTE ; Start at 17:03; Stop 03/08/18 at 17:04; Status DC Calcium Chloride (Calcium Chloride) 1,000 mg STK-MED ONCE .ROUTE ; Start at 17:03; Stop 03/08/18 at 17:04; Status DC Sodium Bicarbonate (Sodium Bicarb Adult 8.4% Syr) 50 meq STK-MED ONCE .ROUTE ; Start 03/08/18 at 17:03; Stop 03/08/18 at 17:04; Status DC Sodium Bicarbonate (Sodium Bicarb Adult 8.4% Syr) 50 meq STK-MED ONCE .ROUTE ; Start 03/08/18 at 17:03; Stop 03/08/18 at 17:04; Status DC Epinephrine HCl (EPINEPHrine SYRINGE) 1 mg STK-MED ONCE .ROUTE ; Start at 17:03; Stop 03/08/18 at 17:04; Status DC Albumin Human 500 ml @ As Directed STK-MED ONCE IV ; Start 03/08/18 at 17:03; Stop 03/08/18 at 17:04; Status DC Sodium Bicarbonate (Sodium Bicarb Adult 8.4% Syr) 50 meq STK-MED ONCE .ROUTE ; Start 03/08/18 at 17:07; Stop 03/08/18 at 17:08; Status DC Sodium Bicarbonate (Sodium Bicarb Adult 8.4% Syr) 50 meq STK-MED ONCE .ROUTE ; Start 03/08/18 at 17:07; Stop 03/08/18 at 17:08; Status DC Cellulose (Surgicel Hemostat 4x8) 1 each STK-MED ONCE TP Last administered on 03/08/18at 15:53; Start 03/08/18 at 15:53; Stop 03/08/18 at 17:40; Status DC Sodium Bicarbonate (Sodium Bicarb Adult 8.4% Syr) 50 meq STK-MED ONCE .ROUTE ; Start 03/08/18 at 17:35; Stop 03/08/18 at 17:37; Status DC Calcium Chloride (Calcium Chloride) 1,000 mg STK-MED ONCE .ROUTE ; Start at 17:35; Stop 03/08/18 at 17:37; Status DC Albumin Human 500 ml @ As Directed STK-MED ONCE IV ; Start 03/08/18 at 17:41; Stop 03/08/18 at 17:43; Status DC Norepinephrine Bitartrate 250 ml @ 1.875 mls/ hr 1X ONCE IV Last administered on 03/08/18at 21:00; Start 03/08/18 at 17:45; Stop 03/09/18 at 08 :10; Status DC Vasopressin 40 unit/Dextrose 102 ml @ 6 mls/hr 1X ONCE IV Last administered on 03/08/18at 20:41; Start 03/08/18 at 18:00; Stop 03/09/18 at 10:59; Status DC Calcium Chloride (Calcium Chloride) 1,000 mg STK-MED ONCE .ROUTE ; Start at 17:57; Stop 03/08/18 at 17:59; Status DC Sodium Bicarbonate (Sodium Bicarb Adult 8.4% Syr) 50 meq STK-MED ONCE .ROUTE ; Start 03/08/18 at 18:04; Stop 03/08/18 at 18:06; Status DC Sodium Bicarbonate (Sodium Bicarb Adult 8.4% Syr) 50 meq STK-MED ONCE .ROUTE ; Start 03/08/18 at 18:05; Stop 03/08/18 at 18:06; Status DC Sodium Bicarbonate (Sodium Bicarb Adult 8.4% Syr) 50 meq STK-MED ONCE .ROUTE ; Start 03/08/18 at 18:07; Stop 03/08/18 at 18:08; Status DC Sodium Bicarbonate (Sodium Bicarb Adult 8.4% Syr) 50 meq STK-MED ONCE .ROUTE ; Start 03/08/18 at 18:07; Stop 03/08/18 at 18:08; Status DC Epinephrine HCl (EPINEPHrine SYRINGE) 1 mg STK-MED ONCE .ROUTE ; Start at 18:40; Stop 03/08/18 at 18:41; Status DC Prochlorperazine Edisylate (Compazine) 10 mg STK-MED ONCE .ROUTE ; Start at 18:42; Stop 03/08/18 at 18:44; Status DC Fentanyl Citrate (Fentanyl 2ml Vial) 100 mcg STK-MED ONCE .ROUTE ; Start at 18:43; Stop 03/08/18 at 18:44; Status DC Sevoflurane (Ultane) 90 ml STK-MED ONCE IH ; Start 03/08/18 at 18:48; Stop at 18:49; Status DC Cellulose (Surgicel Hemostat 2x3) 1 each STK-MED ONCE TP Last administered on 03/08/18at 15:55; Start 03/08/18 at 15:55; Stop 03/08/18 at 19:04; Status DC Cellulose (Surgicel Hemostat 2x3) 1 each STK-MED ONCE TP Last administered on 03/08/18at 15:53; Start 03/08/18 at 15:53; Stop 03/08/18 at 19:04; Status DC Propofol 100 ml @ As Directed STK-MED ONCE IV ; Start 03/08/18 at 19:56; Stop 03/08/18 at 19:58; Status DC Famotidine (Pepcid) 20 mg BID PO ; Start 03/08/18 at 21:00; Stop 03/09/18 at 08:11; Status DC Sodium Chloride (Normal Saline Flush) 3 ml QSHIFT PRN IV AFTER MEDS AND BLOOD DRAWS; Start 03/08/18 at 20:45; Status Cancel Morphine Sulfate (Morphine Sulfate) 1 mg PRN Q1HR PRN IV PAIN Last administered on 03/08/18at 21:12; Start 03/08/18 at 20:45; Stop 03/10/18 at 18: 45; Status DC Ondansetron HCl (Zofran) 4 mg PRN Q6HRS PRN IV NAUESA, 1ST CHOICE; Start 03/08 at 20:45 Fentanyl Citrate 30 ml @ 0 mls/hr CONT PRN IV SEE PROTOCOL Last administered on 03/09/18at 23:16; Start 03/08/18 at 22:15; Stop 03/15/18 at 16:15; Status DC Fentanyl Citrate (Fentanyl 2ml Vial) 25 mcg PRN Q1HR PRN IV SEE COMMENTS; Start 03/08/18 at 22:15; Stop 03/10/18 at 18:45; Status DC Fentanyl Citrate (Fentanyl 2ml Vial) 50 mcg PRN Q1HR PRN IV SEE COMMENTS Last administered on 03/08/18at 22:41; Start 03/08/18 at 22:15; Stop 03/12/18 at 16: 26; Status DC Chlorhexidine Gluconate (Peridex) 15 ml BID MM Last administered on 03/13/18at 09 :00; Start 03/09/18 at 09:00; Stop 03/13/18 at 12:19; Status DC Midazolam HCl 100 ml @ 0 mls/hr CONT PRN IV SEE PROTOCOL Last administered on 03/09/18at 21:43; Start 03/08/18 at 22:15; Stop 03/10/18 at 18:45; Status DC Factor IX (Pha) (Novoseven Rt) 1 mg 1X ONCE IV Last administered on at 01:09; Start 03/09/18 at 01:00; Stop 03/09/18 at 01:01; Status DC Lorazepam (Ativan) 2 mg STK-MED ONCE .ROUTE ; Start 03/09/18 at 01:15; Stop at 01:16; Status DC Norepinephrine Bitartrate 250 ml @ 1.875 mls/ hr CONT PRN IV SEE I/O RECORD Last administered on 03/09/18at 17:41; Start 03/09/18 at 01:45; Stop 03/15/18 at 16:14; Status DC Cefazolin Sodium/ Dextrose 50 ml @ 100 mls/hr 1X PREOP PRN IV PRIOR TO PROCEDURE Last administered on 03/09/18at 02:00; Start 03/09/18 at 02:00; Stop 03/10/18 at 01:59; Status DC Rocuronium [place] (Zemuron) 100 mg STK-MED ONCE .ROUTE ; Start 03/09/18 at 01: 57; Stop 03/09/18 at 01:59; Status DC Fentanyl Citrate (Fentanyl 5ml Vial) 250 mcg STK-MED ONCE .ROUTE ; Start at 02:13; Stop 03/09/18 at 02:14; Status DC Cellulose (Surgicel Hemostat 2x3) 1 each STK-MED ONCE .ROUTE ; Start 03/09/18 at 02:23; Stop 03/09/18 at 02:25; Status DC Cellulose (Surgicel Hemostat 2x14) 1 each STK-MED ONCE .ROUTE ; Start 03/09/18 at 02:23; Stop 03/09/18 at 02:25; Status DC Cellulose (Surgicel Hemostat 4x8) 1 each STK-MED ONCE .ROUTE Last administered on 03/09/18at 02:04; Start 03/09/18 at 02:23; Stop 03/09/18 at 02:25; Status DC Sodium Chloride (Normal Saline Flush) 3 ml QSHIFT PRN IV AFTER MEDS AND BLOOD DRAWS; Start 03/09/18 at 03:30 Cellulose (Surgicel Hemostat 4x8) 1 each STK-MED ONCE TP Last administered on 03/09/18at 02:04; Start 03/09/18 at 02:04; Stop 03/09/18 at 03:20; Status DC Cellulose (Surgicel Hemostat 4x8) 1 each STK-MED ONCE TP Last administered on 03/09/18at 02:04; Start 03/09/18 at 02:04; Stop 03/09/18 at 03:20; Status DC Sodium Bicarbonate (Sodium Bicarb Adult 8.4% Syr) 150 meq STK-MED ONCE .ROUTE ; Start 03/08/18 at 10:00; Stop 03/09/18 at 10:30; Status DC Dopamine HCl/ Dextrose (DOPamine 400MG/ 250ML PREMIX) 400 mg STK-MED ONCE IV ; Start 03/08/18 at 10:00; Stop 03/09/18 at 10:30; Status DC Potassium Chloride/Dextrose 1,000 ml @ 100 mls/hr Q10H IV Last administered on 03/09/18at 11:22; Start 03/09/18 at 11:00; Stop 03/09/18 at 20:59; Status DC Magnesium Sulfate/ Dextrose 100 ml @ 25 mls/hr 1X ONCE IV Last administered on 03/09/18at 13:45; Start 03/09/18 at 12:45; Stop 03/09/18 at 16:44; Status DC Potassium Chloride/Water 50 ml @ 50 mls/hr 1X ONCE IV Last administered on at 13:43; Start 03/09/18 at 12:45; Stop 03/09/18 at 13:44; Status DC Magnesium Sulfate 50 ml @ 25 mls/hr PRN DAILY PRN IV for Mag < 1.7 on am labs Last administered on 03/10/18at 06:17; Start 03/09/18 at 13:45 Sodium Chloride 500 ml @ 500 mls/hr QIDPRN PRN IV U/O <30 cc/hr Last administered on 03/10/18at 09:00; Start 03/09/18 at 19:45 Info (Tpn Per Pharmacy) 1 each PRN DAILY PRN MC SEE COMMENTS; Start 03/10/18 at 09:00; Stop 03/10/18 at 12:42; Status DC Potassium Phosphate 13.6 mmol/Dextrose 104.5333 ml @ 52.267 m... Q2H IV Last administered on 03/10/18at 10:34; Start 03/10/18 at 10:00; Stop 03/10/18 at 11:59; Status DC Amino Acids/ Glycerin/ Electrolytes 1,000 ml @ 100 mls/hr Q10H IV Last administered on 03/11/18at 21:42; Start 03/10/18 at 13:00; Stop 03/12/18 at 21:59; Status DC Ringer's Solution 500 ml @ 500 mls/hr 1X ONCE IV Last administered on at 18:55; Start 03/10/18 at 19:45; Stop 03/10/18 at 20:44; Status DC Dextrose (Dextrose 50%-Water Syringe) 12.5 gm PRN Q15MIN PRN IV SEE COMMENTS; Start 03/11/18 at 07:00 Ringer's Solution 500 ml @ 500 mls/hr Q1H PRN IV FLUID LOSS Last administered on 03/13/18at 00:39; Start 03/11/18 at 07:00 Pantoprazole Sodium (PROTONIX VIAL for IV PUSH) 40 mg DAILY IVP Last administered on 03/17/18at 08:07; Start 03/12/18 at 09:00; Stop 03/17/18 at 09:48; Status DC Potassium Phosphate 13.6 mmol/Dextrose 104.5333 ml @ 52.267 m... Q2H IV Last administered on 03/11/18at 21:42; Start 03/11/18 at 14:00; Stop 03/11/18 at 19:59; Status DC Info (Tpn Per Pharmacy) 1 each PRN DAILY PRN MC SEE COMMENTS Last administered on 03/18/18at 14:19; Start 03/12/18 at 09:30; Stop 03/19/18 at 13:20; Status DC Potassium Phosphate 13.6 mmol/Sodium Chloride 104.5333 ml @ 52.267 m... Q2H IV Last administered on 03/12/18at 13:30; Start 03/12/18 at 09:30; Stop 03/12/18 at 15:29; Status DC Albumin Human 100 ml @ 100 mls/hr TID IV Last administered on 03/14/18at 09:49; Start 03/12/18 at 14:00; Stop 03/14/18 at 09:59; Status DC Info (Tpn Per Pharmacy) 1 each PRN DAILY PRN MC SEE COMMENTS; Start 03/12/18 at 11:00; Status UNV Sodium Acetate 90 meq/Potassium Chloride 50 meq/ Potassium Phosphate 13.6 mmol/ Magnesium Sulfate 10 meq/ Calcium Gluconate 10 meq/ Multivitamins 10 ml/Chromium / Copper/Manganese/ Seleni/Zn 1 ml/ Total Parenteral Nutrition/Amino Acids/ Dextrose/ Fat Emulsion Intravenous 1,512 ml @ 63 mls/hr TPN CONT IV ; Start at 22:00; Stop 03/12/18 at 22:00; Status DC Sodium Acetate 60 meq/Potassium Chloride 50 meq/ Potassium Phosphate 13.6 mmol/ Magnesium Sulfate 10 meq/ Calcium Gluconate 10 meq/ Multivitamins 10 ml/Chromium / Copper/Manganese/ Seleni/Zn 1 ml/ Total Parenteral Nutrition/Amino Acids/ Dextrose/ Fat Emulsion Intravenous 1,512 ml @ 63 mls/hr TPN CONT IV Last administered on 03/12/18at 21:12; Start 03/12/18 at 22:00; Stop 03/13/18 at 21:59; Status DC Magnesium Sulfate 50 ml @ 25 mls/hr 1X ONCE IV Last administered on 03/13/18at 09:30; Start 03/13/18 at 09:30; Stop 03/13/18 at 11:29; Status DC Epinephrine (S2 Racepinephrine) 0.5 ml 1X ONCE NEB Last administered on at 11:30; Start 03/13/18 at 11:30; Stop 03/13/18 at 11:31; Status DC Potassium Phosphate 13.6 mmol/Sodium Chloride 104.5333 ml @ 52.267 m... Q2H IV Last administered on 03/13/18at 15:00; Start 03/13/18 at 13:00; Stop 03/13/18 at 16:59; Status DC Sodium Acetate 60 meq/Potassium Chloride 40 meq/ Potassium Phosphate 25 mmol/ Magnesium Sulfate 15 meq/Calcium Gluconate 5 meq/ Multivitamins 10 ml/Chromium/ Copper/Manganese/ Seleni/Zn 1 ml/ Total Parenteral Nutrition/Amino Acids/ Dextrose/ Fat Emulsion Intravenous 1,512 ml @ 63 mls/hr TPN CONT IV Last administered on 03/13/18at 21:16; Start 03/13/18 at 22:00; Stop 03/14/18 at 21:59; Status DC Iohexol (Omnipaque 300 Mg/ml) 75 ml 1X ONCE IV ; Start 03/13/18 at 12:45; Stop 03/13/18 at 12:46; Status DC Info (CONTRAST GIVEN -- Rx MONITORING) 1 each PRN DAILY PRN MC SEE COMMENTS; Start 03/13/18 at 12:45; Stop 03/15/18 at 12:45; Status DC Albuterol/ Ipratropium (Duoneb) 3 ml RTQID NEB Last administered on 03/19/18at 10:54; Start 03/13/18 at 18:30 Fentanyl Citrate (Fentanyl 2ml Vial) 50 mcg PRN Q2HR PRN IV PAIN Last administered on 03/18/18at 11:15; Start 03/14/18 at 08:15; Stop 03/18/18 at 15:31; Status DC Potassium Chloride/Sodium Chloride 1,000 ml @ 75 mls/hr 1X ONCE IV ; Start 03/14/18 at 08:15; Stop 03/14/18 at 21:34; Status UNV Calcium Gluconate 1000 mg/Dextrose 110 ml @ 220 mls/hr 1X ONCE IV Last administered on 03/14/18at 09:36; Start 03/14/18 at 09:00; Stop 03/14/18 at 09:29; Status DC Iohexol (Omnipaque 300 Mg/ml) 75 ml 1X ONCE IV ; Start 03/14/18 at 08:30; Stop 03/14/18 at 08:31; Status DC Potassium Chloride/Water 50 ml @ 50 mls/hr Q1H IV Last administered on at 10:00; Start 03/14/18 at 09:00; Stop 03/14/18 at 10:59; Status DC Sodium Acetate 60 meq/Potassium Chloride 40 meq/ Potassium Acetate 10 meq/ Potassium Phosphate 25 mmol/ Magnesium Sulfate 15 meq/Calcium Gluconate 5 meq/ Multivitamins 10 ml/Chromium/ Copper/Manganese/ Seleni/Zn 1 ml/ Total Parenteral Nutrition/Amino Acids/Dextrose/ Fat Emulsion Intravenous 1,512 ml @ 63 mls/hr TPN CONT IV Last administered on 03/14/18at 21:51; Start 03/14/18 at 22 :00; Stop 03/15/18 at 21:59; Status DC Magnesium Sulfate/ Dextrose 100 ml @ 100 mls/hr 1X ONCE IV Last administered on 03/15/18at 08:59; Start 03/15/18 at 09:00; Stop 03/15/18 at 09:59; Status DC Sodium Chloride 30 meq/Sodium Acetate 60 meq/ Potassium Chloride 40 meq/ Potassium Acetate 10 meq/Potassium Phosphate 25 mmol/ Magnesium Sulfate 20 meq/ Calcium Gluconate 5 meq/ Multivitamins 10 ml/Chromium/ Copper/Manganese/ Seleni/ Zn 1 ml/ Total Parenteral Nutrition/Amino Acids/Dextrose/ Fat Emuls... 1,512 ml @ 63 mls/hr TPN CONT IV Last administered on 03/15/18at 21:48; Start 03/15/18 at 22:00; Stop 03/16/18 at 21:59; Status DC Sodium Chloride 30 meq/Sodium Acetate 60 meq/ Potassium Chloride 40 meq/ Potassium Acetate 10 meq/Potassium Phosphate 25 mmol/ Magnesium Sulfate 20 meq/ Calcium Gluconate 5 meq/ Multivitamins 10 ml/Chromium/ Copper/Manganese/ Seleni/ Zn 1 ml/ Total Parenteral Nutrition/Amino Acids/Dextrose/ Fat Emuls... 1,512 ml @ 63 mls/hr TPN CONT IV Last administered on 03/16/18at 22:01; Start 03/16/18 at 22:00; Stop 03/17/18 at 21:59; Status DC Pantoprazole Sodium (Protonix) 40 mg DAILYAC PO Last administered on 03/19/18at 06:02; Start 03/18/18 at 07:30 Sodium Chloride 30 meq/Sodium Acetate 60 meq/ Potassium Chloride 40 meq/ Potassium Acetate 10 meq/Potassium Phosphate 25 mmol/ Magnesium Sulfate 20 meq/ Calcium Gluconate 5 meq/ Multivitamins 10 ml/Chromium/ Copper/Manganese/ Seleni/ Zn 1 ml/ Total Parenteral Nutrition/Amino Acids/Dextrose/ Fat Emuls... 1,512 ml @ 63 mls/hr TPN CONT IV Last administered on 03/17/18at 21:59; Start 03/17/18 at 22:00; Stop 03/18/18 at 21:59; Status DC Sodium Chloride 30 meq/Sodium Acetate 60 meq/ Potassium Chloride 40 meq/ Potassium Acetate 10 meq/Potassium Phosphate 25 mmol/ Magnesium Sulfate 20 meq/ Calcium Gluconate 5 meq/ Multivitamins 10 ml/Chromium/ Copper/Manganese/ Seleni/ Zn 1 ml/ Total Parenteral Nutrition/Amino Acids/Dextrose/ Fat Emuls... 1,512 ml @ 63 mls/hr TPN CONT IV Last administered on 03/18/18at 22:08; Start 03/18/18 at 22:00; Stop 03/19/18 at 21:59 Oxycodone/ Acetaminophen (Percocet 5/325) 1 tab PRN Q4HRS PRN PO PAIN Last administered on 03/19/18at 06:20; Start 03/18/18 at 15:30 Active Scripts Active Reported Prilosec Otc (Omeprazole Magnesium) 20 Mg Tablet. 1 Tab PO DAILY Simvastatin 20 Mg Tablet 1 Tab PO QHS Vitals/I & O Vital Sign - Last 24 Hours 03/18/18 03/18/18 03/18/18 03/18/18 16:33 18:18 19:00 19:35 Temp 98.5 98.5 Pulse 83 Resp 16 18 B/P (MAP) 106/51 (69) Pulse Ox 96 O2 Delivery Room Air Room Air Room Air 03/18/18 03/19/18 03/19/18 03/19/18 23:00 03:00 06:20 07:00 Temp 97.9 98.6 98.4 97.9 98.6 98.4 Pulse 65 78 82 Resp 18 18 16 16 B/P (MAP) 92/45 (61) 101/47 (65) 100/49 (66) Pulse Ox 98 97 98 O2 Delivery Room Air Room Air Room Air Room Air 03/19/18 03/19/18 03/19/18 03/19/18 07:20 08:00 10:54 11:00 Temp 98.6 98.6 Pulse 80 Resp 16 16 B/P (MAP) 105/47 (66) Pulse Ox 98 100 O2 Delivery Room Air Room Air Room Air Room Air Intake and Output 03/18/18 03/18/18 03/19/18 15:01 23:01 07:01 Intake Total 200 ml 100 ml Balance 200 ml 100 ml ZINA CALVO MD Mar 19, 2018 16:02
[2018-03-19 19:15] VITALS: BP 106/54
[2018-03-19 22:57] VITALS: BP 91/54
[2018-03-20 02:50] VITALS: BP 94/48
[2018-03-20] MEDS: oxyCODONE/APAP 5/325 1 TAB TABLET PO PRN ×2 (04:09→14:40)
[2018-03-20] MEDS: PANTOPRAZOLE 40 MG TABLET.DR. PO SCH (06:09)
[2018-03-20 07:00] VITALS: BP 93/55
[2018-03-20] MEDS: IPRATRPIUM/ALBUTEROL 0.5/2.5MG 3 ML NEBU. NEB SCH ×3 (07:04→15:52)
--- NOTE | 2018-03-20 08:41 | PDOC ---
SURGICAL PROGRESS NOTE Subjective on the phone with her sister tolerating diet Vital Signs Vital Signs Date Time Temp Pulse Resp B/P (MAP) Pulse Ox O2 Delivery O2 Flow Rate FiO2 03/20/18 07:05 98 Room Air 03/20/18 07:00 98.2 81 18 93/55 (68) 98.2 I&O Intake and Output 03/20/18 07:01 Intake Total 480 ml Balance 480 ml Intake Oral 480 ml # Voids 2 General: Alert, Oriented X3, Cooperative, No acute distress Abdomen: Soft, Other (incision small amount of blooding drainage on dressing, no significant erythema, induration or fluctance, g tube in place) Labs Laboratory Tests Test 03/19/18 05:00 Sodium Level 137 mmol/L (136-145) Potassium Level 3.9 mmol/L (3.5-5.1) Chloride Level 105 mmol/L (98-107) Carbon Dioxide Level 26 mmol/L (21-32) Anion Gap 6 (6-14) Blood Urea Nitrogen 12 mg/dL (7-20) Creatinine 0.5 mg/dL (0.6-1.0) Estimated GFR (Cockcroft-Gault) 122.0 Glucose Level 103 mg/dL (70-99) Calcium Level 7.8 mg/dL (8.5-10.1) Phosphorus Level 3.4 mg/dL (2.6-4.7) Magnesium Level 1.8 mg/dL (1.8-2.4) Triglycerides Level 28 mg/dL (0-150) Problem List Problems Medical Problems: (1) Hypotension Status: Acute Assessment/Plan MARGARITO Blakely APRN Mar 20, 2018 08:41
[2018-03-20 11:00] VITALS: BP 100/55
--- NOTE | 2018-03-20 11:21 | NUR ---
SW following for dc planning, chart reviewed and discussed with RN. Pt has a new wound and now has a G tube. RN waiting to hear if pt is able to dc or not. SW will continue to follow.
--- NOTE | 2018-03-20 13:43 | PDOC ---
Objective: Objective: Reviewed chart. Vital Signs: Vital Signs Date Time Temp Pulse Resp B/P (MAP) Pulse Ox O2 Delivery O2 Flow Rate FiO2 03/20/18 11:16 98 Room Air 03/20/18 11:00 98.2 80 18 100/55 (70) 98.2 03/20/18 07:45 2.0 PE: GEN: NAD NEURO/PSYCH: sleeping, not awakened A/P: S/p splenectomy -- Doing well GI-[facility]. NASIR NGUYEN Mar 20, 2018 13:43
--- NOTE | 2018-03-20 14:13 | NUR ---
Wound care: Patient seen per wound care consult. See wound assessment. Dressing removed and wound cleansed, assessed, and measured. Patient has puncture site in right groin from previous line. Recommendations for Xeroform gauze, gauze pads, and tegaderm tape changing every 2 days. Dressing applied and patient tolerated well. Patient has small open area LLQ where drain was previous removed, we placed a urostomy bag over to protect skin from breakdown, and the surgical incision looks approximated and clean, just a small area that remains opened. This area cleansed and Aquacel Ag placed over small open area just for protection. No other wounds noted upon complete head to toe assessment. Dressing change instructions left in room. at bedside. Will continue to follow regarding wound care. Call light in reach.
[2018-03-20 15:00] VITALS: BP 122/49
--- NOTE | 2018-03-20 16:41 | DISCH ---
DISCHARGE WITH HOME HEALTH DISCHARGE INFORMATION: Final Diagnosis: Problems Medical Problems: (1) Hypotension Status: Acute Condition on Discharge: Stable CODE STATUS: Code Status: Full HOME HEALTH: Face to Face: I certify this patient is under my care and that I, or a nurse practitioner or physician's senior care assistant working with me, had a face to face encounter that meets the physician face to face encounter requirements with this patient on []. Home Health Aide For: Other (wound care) POST DISCHARGE ORDERS: Activity Instructions for Disc: No restrictions Weight Bearing Status after Di: No restrictions DIET AFTER DISCHARGE: Cardiac CERTIFICATION STATEMENT: Certification Statement: Certification Statement: Based on the above finding, I certify that this patient is confined to the home and needs intermittent [facility] care, physical therapy and/or speech therapy, or continues to need occupational therapy.~ This patient is under my care, and I have initiated the establishment of the plan of care.~ This patient will be followed by myself or a community physician who will periodically review the plan of care. 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
[2018-03-20] MEDS ORDERED: OXYC1TAB15 PO (16:42)
--- NOTE | 2018-03-20 17:07 | PDOC3 ---
Discharge Summary Visit Information Date of Admission: Mar 07, 2018 Date of Discharge: Mar 20, 2018 Final Diagnosis Problems Medical Problems: (1) Hypotension Status: Acute Brief Hospital Course Allergies Allergies Coded Allergies Type Severity Reaction Last Updated Verified I S O L A T I O N *CONTACT* Allergy Unknown 03/09/18 Yes No Known Medication Allergies Allergy Unknown 03/09/18 Yes Vital Signs Vital Signs Date Time Temp Pulse Resp B/P (MAP) Pulse Ox O2 Delivery O2 Flow Rate FiO2 03/20/18 15:52 99 Room Air 03/20/18 11:00 98.2 80 18 100/55 (70) 98.2 03/20/18 07:45 2.0 Lab Results Laboratory Tests Test 03/19/18 05:00 Sodium Level 137 mmol/L (136-145) Potassium Level 3.9 mmol/L (3.5-5.1) Chloride Level 105 mmol/L (98-107) Carbon Dioxide Level 26 mmol/L (21-32) Anion Gap 6 (6-14) Blood Urea Nitrogen 12 mg/dL (7-20) Creatinine 0.5 mg/dL (0.6-1.0) Estimated GFR (Cockcroft-Gault) 122.0 Glucose Level 103 mg/dL (70-99) Calcium Level 7.8 mg/dL (8.5-10.1) Phosphorus Level 3.4 mg/dL (2.6-4.7) Magnesium Level 1.8 mg/dL (1.8-2.4) Triglycerides Level 28 mg/dL (0-150) Brief Hospital Course 72-year-old female who has a past history of cirrhosis and hepatocellular carcinoma status post resection, who was admitted to [facility] with hypotension. She had a significant GI bleed with hematemesis and hematochezia. She underwent endoscopy by Dr. Grayson who found stomach full of blood, but no varices. She subsequently had Interventional Radiology participate in her care because of continued blood loss and hypotension. They were unable to access the patient's splenorenal shunt. She continued to have significant bleeding, and her hemoglobin fell significantly to 6. She then underwent emergency surgery by Dr. Alcala, who found that the patient had 1300 mL of blood, which was evacuated. and underwent partial gastrectomy and splenectomy by Dr. Boyd. She did have more bleeding complications and had to go back to the OR for the same. patient had a G tube placed on 03/08 with ostomy pouch She has received 16 units of packed RBCs, 6 of FFP 2 units of platelets one pack of cryo-as well as factor VIIa. patient's BP dropped and placed on pressors briefly via CVL. she was also intubated and remained in ICU. but eventually stabilized and transferred to the floor. patient was on TPN for several days till she was able to tolerate a diet. her diet was advanced slowly to a regular diet at discharge. patient will dc with G tube and have GI eval and scope in 3 months where g tube can be removed at that time. she will need needs pneumococcal and meningococcal vaccines in about 2 weeks following discharge . she will FU with liver specialist once home. patient tolerated PT well. patient discharged home in stable condition with home health. 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
--- NOTE | 2018-03-20 20:04 | NUR ---
PT DISCHARGED HOME WITH [facility]. DISCHARGE INSTRUCTIONS AND PRESCRIPTIONS DISCUSSED WITH AND PATIENT. PROVIDED EXTRA SUPPLIES FOR DRESSING CHANGES IF NEEDED. BODY CARE MANAGER FAXED ALL NEEDED INFO TO [facility]. WOUND CARE CHANGED ALL DRESSINGS. REMOVED CENTRAL LINE. PT TOLERATED WELL AND NO COMPLICATIONS WERE NOTED. PT TAKEN VIA WHEELCHAIR TO MAIN ENTRANCE AND SECURED IN VEHICLE WITH BY LUCERO.
== END 2018-03-20 18:00 | disposition home health service (06) | DRG 326 ==
LOC: ER 18:15 → 1 WEST ICU 18:41 → 4 NORTH 03-15 13:36
PROVIDERS: ADMIT Internal Medicine; ATTEND Internal Medicine
PROC: 0DJ08ZZ Inspection of Upper Intestinal Tract, Via Natural or Artificial Opening Endoscopic (ICD-10-PCS; principal; 2018-03-07 22:00)
PROC: 0D9600Z Drainage of Stomach with Drainage Device, Open Approach (ICD-10-PCS; 2018-03-08)
PROC: 0DH60UZ Insertion of Feeding Device into Stomach, Open Approach (ICD-10-PCS; 2018-03-08)
PROC: 0W3P0ZZ Control Bleeding in Gastrointestinal Tract, Open Approach (ICD-10-PCS; 2018-03-08)
PROC: 5A1955Z Respiratory Ventilation, Greater than 96 Consecutive Hours (ICD-10-PCS; 2018-03-08)
PROC: 0BH17EZ Insertion of Endotracheal Airway into Trachea, Via Natural or Artificial Opening (ICD-10-PCS; 2018-03-08)
PROC: 30233L1 Transfusion of Nonautologous Fresh Plasma into Peripheral Vein, Percutaneous Approach (ICD-10-PCS; 2018-03-08)
PROC: 30233N1 Transfusion of Nonautologous Red Blood Cells into Peripheral Vein, Percutaneous Approach (ICD-10-PCS; 2018-03-08)
PROC: 30233K1 Transfusion of Nonautologous Frozen Plasma into Peripheral Vein, Percutaneous Approach (ICD-10-PCS; 2018-03-08)
PROC: 07TP0ZZ Resection of Spleen, Open Approach (ICD-10-PCS; 2018-03-08)
PROC: 0W9G0ZZ Drainage of Peritoneal Cavity, Open Approach (ICD-10-PCS; 2018-03-09)
DX: K92.2 Gastrointestinal hemorrhage, unspecified (principal); J96.00 Acute respiratory failure, unspecified whether with hypoxia or hypercapnia; D62 Acute posthemorrhagic anemia; E87.0 Hyperosmolality and hypernatremia; C22.0 Liver cell carcinoma; D68.9 Coagulation defect, unspecified; K76.6 Portal hypertension; I86.4 Gastric varices; I95.9 Hypotension, unspecified; E87.6 Hypokalemia; K21.9 Gastro-esophageal reflux disease without esophagitis; Z83.3 Family history of diabetes mellitus; K74.60 Unspecified cirrhosis of liver; E86.9 Volume depletion, unspecified; R73.9 Hyperglycemia, unspecified; E83.42 Hypomagnesemia; E83.39 Other disorders of phosphorus metabolism; D69.6 Thrombocytopenia, unspecified; E78.5 Hyperlipidemia, unspecified; I10 Essential (primary) hypertension; T39.395A Adverse effect of other nonsteroidal anti-inflammatory drugs [NSAID], initial encounter; Z80.3 Family history of malignant neoplasm of breast; Z85.05 Personal history of malignant neoplasm of liver; Z90.3 Acquired absence of stomach [part of]
CPT/HCPCS: 36012; 36415; 36600; 43235; 71045; 74018; 74177; 75831; 76770; 76937; 80048; 80053; 80069; 81001; 82310; 82550; 82570; 82803; 82805; 82962; 83605; 83735; 84100; 84132; 84156; 84300; 84478; 84484; 84550; 85007; 85018; 85025; 85027; 85384; 85610; 85730; 86850; 86900; 86901; 86920; 86927; 87086; 87641; 88305; 93005; 93306; 94002; 94003; 94640; 94760; A7015; C1713; C1769; C1892; C1894; C9113; J0171; J0330; J0610; J0690; J0696; J1100; J1265; J1644; J2001; J2060; J2250; J2270; J2354; J2405; J2704; J3010; J3475; J3480; J3490; J7040; J7042; J7120; J7189; J7620; P9012; P9016; P9017; P9035; P9045; P9046; Q9967; 92526; 92610; 97116; 97530; 97535; 99291-25